=== PATIENT | female | born 1970 | race Caucasian/White ===

== ENCOUNTER 2017-12-24 13:00 | Outpatient (RCR) | payer BC, SELFPAY ==
--- NOTE | 2017-11-12 13:54 | HP.PTEVAL_ITS ---
Patient's Visit Information JARET HARVEY is a 47 year old F referred to Physical Therapy by STACY Luong with a diagnosis of L healing 2 MT fx, Stress 3//5 MT and talus. Date of Evaluation: 11/12/17 Physical Therapist: Juan Galeas DPT, OC - Visit Plan Frequency: 2x /Week Duration: 2 Months Plan: 2x/week for 4-8 for. 1. STM to L foot and lower leg. 2. L ankle stretch and strength.proprioception. 3. ice adn ES as necessary. Most importantly, wean out of boot starting 1 hour per day for 3 days then add an hour every three days as tolerated. - Subjective Subjective: Stress fx left foot 2nd metatarsal stress fracture. Fell a year ago but did not get it taken care of until boot in April. Healed OK back to shoe over the fall. Back to work in September adn got worse again. She works at [employer] and walks on concrete all day. MRI was done and bone next to fractrure is swollen. Back in boot since October 23. It helps. Not painful in boot. If walks around at night wihtout boot it can hurt. Sometimes hurts more at night. Off work again since Oct 23 and will be off until january. Sleep is normal. Does all aDLs with boot on and is OK. - Pain L foot metatarsals Pain Intensity (Out of 10): 0 Pain Intensity Range: 0, 10 Comment: If on it alot. - Objective L Walks with L foot in boot without antalgia. Pt states she walked on side of foot when went back to work in September, no sign of that today. Transfers I and I bed mobility. 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 Movement is decent compared to R at met heads but painful mostly with compression of met heads'. Gastroc and soleus mod tight B at 3 degrees DF. Pt has pes planus B and has OTC orthotics given to her by Dr. Recinos at home. Toe and ankle strength on L 4/5 adn R 4+, slight pain with great toe extension. ankle strength is 4/5 L adn 4+ R without pain. knee strength is 4+/5 B knee flex adn ext...no pain. heel walk and toe raises are painfree today. - Goals Goal 1:: Full ROM B ankles and Metatarsals without pain Goal Time Frame: 4-6 Weeks Goal 2:: Patient wean out of boot without increased pain for 8-10 hours. Goal Time Frame: 4-6 Weeks Goal 3:: Patient feel ready to return to work without increased pain Goal Time Frame: 6-8 Weeks Goal 4:: I approp HEP to minimize future problems. Goal Time Frame: 4-6 Weeks - Rehabilitation Potential Physical Therapy Diagnosis: Inflammation in MT L foot Rehabilitation Potential: Fair - Anticipated Interventions Patient/Client Instruction: Educate patient on: Condition, Plan of Care For the Purpose of:: To decrease pain, To increase ROM, To decrease level of supervision to perform tasks, To improve ability of physical actions for home/ community/work/leisure Therapeutic Exercise to Include: Strength training, Flexibilty training, Gait and locomotor training, Passive ROM, Active ROM For the Purpose of:: To decrease pain, To increase ROM, To improve muscle performance and motor function, To improve ability of physical actions for home/ community/work/leisure, To improve gait and locomotor functions Manual Therapy Techniques to Include: Soft tissue mobilization For the Purpose of:: To decrease pain, To improve nutrient delivery to tissue, To improve ability of physical actions for home/community/work/leisure, To improve gait and locomotor functions TENS: Yes - as needed. Cryotherapy (ice pack, ice massage): Yes For the Purpose of:: To decrease pain, To decrease swelling/inflammation Thank you for the opportunity to evaluate your patient. For Medicare and Medicare HMO plans, please review the plan of care and approve it. It will need to be FAXED BACK to us at [phone] for Medicare purposes. Please let me know if there are questions or concerns regarding this plan of care. Physician Signature: Date:
--- NOTE | 2017-12-08 14:04 | HP.PTREVAL_ITS ---
Jennifer Workman, STACY, It has been my pleasure to treat JARET HARVEY over the last 9 visits for L healing 2 MT fx, Stress 3//5 MT and talus. Please see the progress note below for an update on the physical therapy plan of care! Subjective: Feels medium better. Soreness comes and goes to 8/10 adn sometimes not at all. Good days and bad days without pattern. Pain is L lateral MT. Saw doctor today and is doing OK and will go back 01.05.18. HEP daily band and toe curls and stretches. Sleep is OK. Activities are close to normal, does steps and walks alot. Was in [employer] for an hour in egualr shoe last and that was the last time it really hurt. Has weaned out of boot for the most part. Wants to continue therapy. Goes back to work in a month. Objective/Function: Full aROM L foot without pain, 4+/5 stretngth all ankle motions on L without pain. Tender mildly top of 4th MT to pressure but not squeezing. walks and steps without deficits. OVERALL MUCH IMPROVEMENT AND DOING WELL. RECOMMEND CONTINUING VIA HEP AND F/U FOR PROGRESSION. Plan Plan: F/U TWO WEEKS TO ENSURE PROGRESS WITH ACTIVITY TOLERANCE AND STRENGTH. PROGRESS TO SLS, SLS HEEL RAISE, LUNGES. Goals Goal 1:: Full ROM B ankles and Metatarsals without pain Goal Time Frame: 4-6 Weeks Goal Progress: Goal Met Goal 2:: Patient wean out of boot without increased pain for 8-10 hours. Goal Time Frame: 4-6 Weeks Goal Progress: Goal Met Goal 3:: Patient feel ready to return to work without increased pain Goal Time Frame: 6-8 Weeks Goal Progress: Not yet. Goal 4:: I approp HEP to minimize future problems. Goal Time Frame: 4-6 Weeks Goal Progress: Progressing Goal 5:: Tolerating 3-4 hours on feet without increased pain. Goal Time Frame: 2 Weeks Goal Progress: NEW GOAL Anticipated Interventions Patient/Client Instruction: Educate patient on: Condition, Plan of Care For the Purpose of:: To decrease pain, To increase ROM, To decrease level of supervision to perform tasks, To improve ability of physical actions for home/ community/work/leisure Therapeutic Exercise to Include: Strength training, Flexibilty training, Gait and locomotor training, Passive ROM, Active ROM For the Purpose of:: To decrease pain, To increase ROM, To improve muscle performance and motor function, To improve ability of physical actions for home/ community/work/leisure, To improve gait and locomotor functions Manual Therapy Techniques to Include: Soft tissue mobilization For the Purpose of:: To decrease pain, To improve nutrient delivery to tissue, To improve ability of physical actions for home/community/work/leisure, To improve gait and locomotor functions TENS: Yes - as needed. Cryotherapy (ice pack, ice massage): Yes For the Purpose of:: To decrease pain, To decrease swelling/inflammation Please do not hesitate to contact me at [phone] by phone or Fax: if you have questions or concerns regarding this new plan of care! Sincerely, Juan Galeas, DPT, OC
--- NOTE | 2018-02-25 18:33 | HP.PTDCSUM ---
HP - PT D/C Summary It has been my pleasure to treat JARET HARVEY under orders from Jennifer Workman DPM, for the diagnosis of L healing 2 MT fx, Stress 3//5 MT and talus for a total of 10 visit(s). Discharge Date: 12/24/17 Please see the following information for a summary of their discharge status. - Subjective Subjective: Sleep is OK. Up and down pain, more described as stiffness, not relating to any activity in particular. To doctor in two weeks. HEP : going well and still challenging but improving. All activities normal. - Pain L foot metatarsals Pain Intensity (Out of 10): 0 - Overall Improvement % Improvement: 40 - Objective Objective/Function: Walks without deviations and normal steps. AROM L ankle and MT full and strength in ankle 5/5. Nild discomfort with pressure to top of metatarsal 123 and with squeeze of Metatarsal but it is transient. Toe aROM full. Gait pattern is normal. OVERALL, DOING VERY WELL AND WILL COTNINUE EX VIA HEP, LIKELY READY TO RETURN TO WORK AFTER NEXT DOC APPT AT END OF MONTH. - Goals Goal 1:: Full ROM B ankles and Metatarsals without pain Goal Progress: Goal Met Goal 2:: Patient wean out of boot without increased pain for 8-10 hours. Goal Progress: Goal Met Goal 3:: Patient feel ready to return to work without increased pain Goal Progress: met aftr 27th doc visit. Goal 4:: I approp HEP to minimize future problems. Goal Progress: Goal Met Goal 5:: Tolerating 3-4 hours on feet without increased pain. Goal Progress: Goal Met - Plan Plan: D/C PT. - D/C Information Discharge Comments: Pt to doctor in two weeks and will likely be ready to return to work. If there are questions or concerns regarding this patient's physical therapy, please feel free to call me at [phone]. Thank you for the referral of this patient. Sincerely, Juan Galeas, DPT, OC
== END 2017-12-24 19:00 | disposition home or self-care (01) ==
LOC: PT 13:00
PROVIDERS: Family Provider Family Medicine; PCP Family Medicine; Visit Provider Podiatrist
DX: S92.322D Displaced fracture of second metatarsal bone, left foot, subsequent encounter for fracture with routine healing (principal)
CPT/HCPCS: 97110; 97140; 97162; 97530

== ENCOUNTER → 2018-02-04 16:55 | Outpatient (CLI) | payer BC, SELFPAY ==
[2018-02-04 17:51] LABS: T4 Free Direct 1.08 ng/dL (0.76-1.46); Thyroid Stim Hormone (TSH) 2.14 uIU/mL (0.358-3.74)
== END ==
PROVIDERS: Family Provider Family Medicine; PCP Family Medicine; Visit Provider Family Medicine
DX: E03.9 Hypothyroidism, unspecified (principal)
CPT/HCPCS: 36415; 84439; 84443

== ENCOUNTER → 2018-04-04 07:55 | Outpatient (CLI) | payer BC, SELFPAY ==
[2018-04-04 09:54] LABS: ALB/GLOB Ratio 1.1 RATIO (0.9-2.4); AST(SGOT) 10 U/L (15-37); Alanine Aminotransfer ALT/SGPT 16 U/L (13-56); Albumin, Serum 3.9 g/dL (3.2-5.0); Alkaline Phosphatase 79 U/L (45-117); Anion Gap 3 (5-15); BUN 12 mg/dL (7-18); Calcium,Total 8.8 mg/dL (8.5-10.1); Chloride 108 mmol/L (98-107); Cholesterol 233 mg/dL (200); Creatinine, Serum 0.63 mg/dL (0.55-1.02); EST Glomerular Filtration Rate 106 mL/min (>60); Est Glom Filt Rate - Afr Amer 128 mL/min (>60); Globulin 3.5 g/dL (2.2-4.2); Glucose 92 mg/dL (74-106); High Density Lipoprotein 53 mg/dL; Potassium 4.1 mmol/L (3.5-5.1); Protein, Total 7.4 g/dL (6.4-8.2); Sodium Level 139 mmol/L (136-145); Triglycerides 59 mg/dL; Very Low Density Lipoprotein 12 mg/dL (5-40)
[2018-04-06 09:49] LABS: Vitamin D,25 Hydroxy 22.9 ng/mL (29.95-100.01)
== END ==
PROVIDERS: Family Provider Family Medicine; PCP Family Medicine
DX: E03.9 Hypothyroidism, unspecified (principal); E55.9 Vitamin D deficiency, unspecified; Z13.1 Encounter for screening for diabetes mellitus; Z13.6 Encounter for screening for cardiovascular disorders
CPT/HCPCS: 36415; 80053; 80061; 82306

== ENCOUNTER 2018-09-28 16:02 | Emergency (ER) | payer BC, SELFPAY ==
[2018-09-28 16:04] VITALS: BP 148/91; PULSE 79; RESP 16; TEMP 36.7; O2SAT 100; BMI 23.6
--- NOTE | 2018-09-28 16:16 | EKG12_ITS ---
Test Reason : SOB Blood Pressure : / mmHG Vent. Rate : 069 BPM Atrial Rate : 069 BPM P-R Int : 170 ms QRS Dur : 108 ms QT Int : 410 ms P-R-T Axes : 059 032 046 degrees QTc Int : 439 ms Normal sinus rhythm Normal ECG Confirmed by MARIA ELENA CORDERO MD ([id number]), editorial manager RENETTA RIVERA ([id number]) on 10/02/2018 1:26:52 PM Referred By: TRUDY Confirmed By:MARIA ELENA CORDERO MD
--- NOTE | 2018-09-28 16:21 | ED.DCSUM_ITS ---
- ER Visit Summary Date of Service: 09/28/18 Chief Complaint: Shortness of breath History of Present Illness: The patient is a 48 F patient with shortness of breath, chest tightness for the past 2 weeks after using estradiol vaginal inserts. She has been using albuterol nebulizer at night and Mucinex throughout the day with minimal improvement. She reports mild, nonproductive cough. She states symptoms were similar to her prior COPD exacerbations, but do not seem to be improving. Physical Examination: Vital signs are unremarkable. Pulse ox is 100% on room air. Patient is standing at bedside no acute distress. She is speaking full sentences. Head neck examination is unremarkable. TMs are clear bilaterally. Heart is regular rate and rhythm. Lung sounds are clear, but slightly diminished throughout. Abdomen is soft nontender. Test Results: EKG is sinus at 69 with no sign of acute ischemia. Two-view chest x-ray is unremarkable. CBC was normal white count with hemoglobin 11.9. Chemistry studies are normal. Troponin is negative. D-dimer returns elevated just over 2. CTA reveals no evidence of PE or dissection. There are emphysematous changes noted in the lungs. Emergency Department Course and Treatment: Patient is given a cycle of aerosols and does have some improvement in her symptoms. Patient does have an allergy listed to Medrol, but is able to take prednisone. She be given prednisone and doxycycline for her COPD exacerbation. Treatment Plan: [] Disposition: Discharge Impression: COPD exacerbation This note was generated with [employer] dictation software. It may contain incorrect words, spelling, and punctuation that were not noted in review of the chart prior to signing ED Disposition - Plan for ED Patient: Chief Complaint: Shortness of Breath Referrals: Fortino Srivastava MD [Primary Care Provider] -
[2018-09-28 16:42] VITALS: PULSE 67; RESP 20
[2018-09-28] MEDS: Ipratropium/Albuterol Sulfate 3 ML AMPUL.NEB INHALATION (16:42)
[2018-09-28 16:52] VITALS: PULSE 86; RESP 18
[2018-09-28] MEDS: Albuterol 2.5 MG/3 ML VIAL.NEB. INHALATION ×2 (16:52→17:01)
[2018-09-28 17:16] LABS: Absolute Lymphocyte Count 2.97 X10^3/ul (0.83-4.51); Absolute Neutrophil Count 3.6 X10^3/uL (2.0-7.7); Basophil# 0.05 X10^3/uL; Basophil% 0.7 % (0-1); Eosinophil# 0.26 X10^3/uL; Eosinophils% 3.4 % (0-5); Hematocrit 34.5 % (37-47); Hemoglobin 11.9 g/dl (12.0-15.0); Lymphocyte # 2.97 X10^3/ul (4.0); Lymphocyte % 38.9 % (19-41); Mean Corp Hgb Conc 34.5 g/gl (32-36); Mean Corpuscular Hgb 30.2 pg (27.0-32.0); Mean Corpuscular Volume 87.6 fL (81-99); Mean Platelet Vol. 9.2 fl (6.2-12.0); Monocyte# 0.73 X10^3/uL; Monocyte% 9.6 % (0-10); Platelet Count 370 K/mm3 (150-450); RBC Distribution Width CV 12.5 % (11.6-14.6); RBC Distribution Width SD 39.2 fl (35.1-43.9); Red Blood Count 3.94 M/mm3 (4.2-5.4); White Blood Count 7.6 K/mm3 (4.4-11.0)
--- NOTE | 2018-09-28 17:16 | RAD_ITS ---
STUDY: X-RAY CHEST REASON FOR EXAM: Female, 48 years old. Chest pain TECHNIQUE: PA and lateral views of the chest. COMPARISON: Prior study of 03/27/2015 FINDINGS: The lungs are clear and expanded. There is no demonstrated pleural abnormality. Normal size heart. Normal mediastinum and charles. Normal visualized pulmonary arteries. Normal visualized aortic arch and descending thoracic aorta. Normal visualized thoracic spine. Normal visualized ribs, clavicles, and shoulders. There is no demonstrated abnormality of the visualized soft tissue structures of the upper abdomen. RAD/Chest PA and Lateral IMPRESSION: Normal x-ray examination of the chest. Electronically Signed: Wyatt Dickens MD at 17:55 EST , Service support ,
[2018-09-28 17:17] LABS: POSITIVE COUNT NO; POSITIVE DIFFERENTIAL NO; POSITIVE MORPHOLOGY NO
[2018-09-28 17:20] LABS: Anion Gap 9 (5-15); BUN 6 mg/dL (7-18); BUN/Creat Ratio 8.4 RATIO (10-20); Calcium,Total 8.9 mg/dL (8.5-10.1); Chloride 103 mmol/L (98-107); Creatinine, Serum 0.71 mg/dL (0.55-1.02); EST Glomerular Filtration Rate 92 mL/min (>60); Est Glom Filt Rate - Afr Amer 111 mL/min (>60); Estimated Creatinine Clearance 74.97 ml/min; Glucose 78 mg/dL (74-106); Potassium 3.5 mmol/L (3.5-5.1); Sodium Level 140 mmol/L (136-145)
[2018-09-28 17:34] VITALS: O2SAT 100
[2018-09-28 17:55] LABS: D-Dimer Quantitative (DVT/PE) 2.28 FEU/ug/m (0.27-0.49)
--- NOTE | 2018-09-28 17:56 | CT_ITS ---
STUDY: CTA CHEST REASON FOR EXAM: Female, 48 years old. Shortness of breath and chest tightness x2 weeks, elevated d-dimer RADIATION DOSAGE (If Supplied By Facility): CTDIvol = ( 4.57 ) mGy, DLP = ( 180.83 ) mGycm TECHNIQUE: The examination was performed with the intravenous administration of 75ML ml of Isovue 370 contrast material. Post-processing of the angiographic images was performed, with multiplanar reformation and 3D reconstruction. Individualized dose optimization techniques were used for this CT. COMPARISON: None. FINDINGS: Normal enhancement of the main pulmonary artery and right and left pulmonary arteries. Normal enhancement of the bilateral peripheral pulmonary arteries. There is no demonstrated pulmonary embolism. Normal thoracic aorta and visualized great vessels. There is no demonstrated aortic dissection. Normal heart and pericardium. Normal mediastinum. Normal hilar regions. There are emphysematous changes of the lungs predominantly involving the upper lobes. There is bilateral apical pulmonary scarring/pleural thickening. The lungs are well expanded. Normal chest wall structures. There is mild diffuse endplate spondylosis of the thoracic spine. Normal visualized upper abdomen. CT/CTA Chest W/WO Contrast IMPRESSION: Normal CTA chest examination, without a demonstrated pulmonary embolism or arterial dissection. There are emphysematous changes of the lungs predominantly involving the upper lobes. There is bilateral apical pleural thickening/pulmonary scarring. Electronically Signed: Wyatt Dickens MD at 18:50 EST , Service support ,
--- NOTE | 2018-09-28 17:56 | ED.RN ---
ddimer 2.[address] called [address] lab. dr anna falcon
[2018-09-28 18:23] VITALS: BP 106/70; PULSE 93; RESP 12; O2SAT 98
[2018-09-28 19:10] VITALS: BP 112/77; PULSE 93; RESP 18; O2SAT 98
--- NOTE | 2018-09-28 19:23 | ED.DEP ---
ED Disposition - Plan for ED Patient: Disposition: Home or Assisted Living Chief Complaint: Shortness of Breath Instructions: ED COPD Flare Prescriptions: Prednisone 10 mg PO UD #33 tablet Doxycycline 100 mg PO BID #20 capsule Referrals: Fortino Srivastava MD [Primary Care Provider] - 1 Week if not improving
--- OUTSIDE RECORDS SUMMARY | 2018-12-31 09:11 | XMS RPT_ITS ---
:1970 Author Organization OH[facility] Care Team Providers Name Role Phone SHERLYN HENDERSON) Attending Unavailable MIAN REYES (KRISHNA) Attending Unavailable SHERLYN HENDERSON (LUKASZ) Referring Unavailable FORTINO LOGAN Attending Unavailable FORTINO LOGAN Referring Unavailable FORTINO LOGAN Referring Unavailable PAIGE LYNN Attending Unavailable MIAN REYES (KRISHNA) Referring Unavailable PAIGE LYNN Attending Unavailable MIAN REYES (KRISHNA) Referring Unavailable FORTINO LOGAN Attending Unavailable FORTINO LOGAN Referring Unavailable Fortino Logan Primary Care Unavailable Pallavi Ventura Attending Unavailable Fortino Logan Attending Unavailable Fortino Logan Primary Care Unavailable Fortino Logan Referring Unavailable Jennifer Workman Attending Unavailable Jennifer Workman Referring Unavailable Fortino Logan Primary Care Unavailable Fortino Logan Attending Unavailable Fortino Logan Primary Care Unavailable PUNEET ORTEZ Attending Unavailable Fortino Logan Primary Care Unavailable PUNEET ORTEZ Referring Unavailable PROBLEMS PROBLEMS DATE TYPE CONDITION / CODE ATTENDING STATUS SOURCE 10/20/2018 Unknown E03.9 - Fortino Logan Active [place] Hypothyroidism, Community unspecified / Hospital E03.9(ICD-10) Repository 04/22/2018 Active Unknown / FORTINO LOGAN Active [facility] UNK(Unknown) A Main [place] Repository 02/27/2018 Unknown S92.322D - Fascione, Active [place] Displaced Jennifer Community fracture of Hospital second metatarsal Repository bone, left foot, subsequent encounter for fracture with routine healing / S92.322D(ICD-10) PROCEDURES PROCEDURES No Procedure Records FoundRESULTS RESULTS PROGRESS Observed: 10/23/2018 Status: COMPLETED Source: [place] 3:16 PM [facility] REPOSITORY HNO ID: [id number] Author: Fortino Logan Service: (none) Author Type: Physician Type: Progress Notes Filed: 10/23/2018 8:55 PM Note Text: Chief Complaint Patient presents with: Breathing Problem: x 1 month HPI Brenda Villalobos is a 48 year old female who presents here today for Chronic Medical Conditions.. Patient with COPD, dyslipidemia, hypothyroidism, insomnia, elevated fasting blood sugar as well as those reviewed and addressed below. Was not able to refill her advair and spiriva over a month ago due to 90 supply of each being over $1000. Ended up in the ER in Mid Dec for chest pain that was determined to be her underlying lung disease. The senna has helped her constipation. Wants to try to quit smoking but feels she needs help with this. Would like to try Wellbutrin. The detrol has helped with the bladder. Past medical history, appointments, medications, allergies reviewed. Previous Medical History PAST MEDICAL HISTORY Diagnosis Date - Acquired hypothyroidism 04/25/2015 US 10/2017 showed enlarged right lobe but no nodules - Allergic rhinitis 09/03/2013 - ALEXYS III (cervical intraepithelial neoplasia grade III) with severe dysplasia - Constipation 08/23/2015 - COPD with asthma (HCC) - Dyslipidemia 04/22/2018 - Elevated fasting blood sugar 04/18/2017 - Endometriosis, site unspecified Endometriosis - Gastric hyperplasia 10/18/2016 - Gastro-esophageal reflux disease with esophagitis 10/18/2016 Patient with EGD proven esophagitis and gastric hyperplasia. Has been on omeprazole, pantoprazole and prevacid with no relief of symptoms. Nexium has been helpful and dexalant - GERD (gastroesophageal reflux disease) - Hypothyroidism - Insomnia 04/12/2014 - Post-menopausal - Routine gynecological examination Dr. Chow - Smoker 08/12/2013 - Vitamin D deficiency Previous Surgical History PAST SURGICAL HISTORY Procedure Laterality Date - EGD W/O BRSH SPECIMEN W/BX 05/27/2016 - OFFICE LEEP 2001 - TOTAL ABDOM HYSTERECTOMY 2002 vivian bso Family History FAMILY HISTORY Problem Relation Age of Onset - COPD Mother - Heart Mother - Thyroid Mother - Hypertension Mother - Kidney Disease Mother Kidney failure - Asthma Mother - Breast Cancer Mother - Diabetes Son Type 1 - Asthma Son Patient Allergies ALLERGIES Allergen Reactions - Medrol Dose Pack [M* Swelling Swelling of throat - Bactrim [Sulfametho* Itching - Morphine Itching Current Medications Current Outpatient Prescriptions on File Prior to Visit: tolterodine ER (DETROL LA) 2 mg 24 hr capsule TAKE 1 CAPSULE ONCE DAILY WITH A 4 MG TABLET FOR A TOTAL OF 6 MG A DAY tolterodine ER (DETROL LA) 4 mg 24 hr capsule TAKE 1 CAPSULE ONCE DAILY. 6 MG TOTAL DAILY ergocalciferol, vitamin D2, (VITAMIN D2 ORAL) Take by mouth. hydrOXYzine HCl (ATARAX) 25 mg tablet Take 1-2 tabs by mouth prior to bed as needed for sleep. levothyroxine (SYNTHROID) 88 mcg tablet Take one tab by mouth daily Fri-Friday. None on Friday albuterol (PROVENTIL) 2.5 mg /3 mL (0.083 %) nebulizer solution Use 3 mL via nebulizer every 6 hours as needed for Wheezing/Shortness of Breath. Use over 5-15minutes. esomeprazole (NEXIUM) 40 mg capsule Take 1 capsule by mouth daily before breakfast. senna (SENOKOT) 8.6 mg tab Take 1 tablet by mouth twice daily. Estradiol (YUVAFEM) 10 mcg tab vaginal tablet Use 1 tablet vaginally twice a week. tiotropium (SPIRIVA WITH HANDIHALER) 18 mcg inhalation capsule INHALE THE CONTENTS OF 1 CAPSULE DAILY INSTRUCTED. USE WITH HANDIHALER fluticasone-salmeterol HFA (ADVAIR HFA) 230-21 mcg/actuation inhaler Inhale 2 Puffs as instructed twice daily. polyethylene glycol 3350 (MIRALAX, GLYCOLAX) 17 gram/dose powder Take 17 g by mouth once daily. Take one (1) capful in 8oz of liquid each day. albuterol HFA (PROAIR HFA) 90 mcg/actuation inhaler USE 2 INHALATIONS EVERY 6 HOURS INSTRUCTED NEEDED No current facility-administered medications on file prior to visit. 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 1st AM cigarette within 5 minutes of waking up. 01/30/16. TO Alcohol use: No Drug use: No Sexual activity: Yes Partners with: Male control/protection: Surgical Comment: Pt has had a Hysterectomy Review of Symptoms REVIEW OF SYSTEMS GENERAL: No weight loss, malaise or fevers NECK: Negative for lumps, goiter, pain and significant neck swelling RESPIRATORY: Negative for change in typical cough, hemoptysis. Breathing control poor due to being off routine meds. CARDIOVASCULAR: Negative for chest pain, leg swelling, hypertension, CHF or palpitations GI: No nausea, vomiting, or diarrhea. Still getting HB. : No history of dysuria or blood PSYCH: Negative for sleep disturbance, mood disorder and recent psychosocial stressors NEURO: No history of headaches, syncope, paralysis, seizures or tremors EXAM: BP 112/70 Pulse 72 Resp 14 Wt 61.2 kg (135 lb) SpO2 98% BMI 24.30 kg/m? General Appearance: Well appearing, alert, in no acute distress, well-hydrated, well nourished.. Eyes: Anicteric sclera. Pupils are equally round. Extraocular movements are intact. . Neck: Supple, no adenopathy; thyroid symmetric, normal size, no bruits. Lungs: lungs clear to auscultation. No wheezing, rhonchi, rales. Heart: RRR without murmur, gallop, or rubs. No ectopy. Abdomen: Normal abdominal exam, Abdomen soft, non-tender. Bowel sounds normal. No masses, organomegaly. Extremities: No deformities, edema. Peripheral Pulses: Normal. Neurologic: Gait normal. Reflexes normal and symmetric. Sensation to light touch and strength intact. Psych: mood and affect normal.. Health Maintenance List COLORECTAL CANCER SCREENING,SEE MODIFIER due on 2018 STEROID INHALER ADHERENCE due on 11/13/2018 ANNUAL PCP TEAM CHRONIC DISEASE VISIT due on 04/22/2019 MAMMOGRAM due on 04/29/2019 PAP EVERY 5 YEARS due on 12/09/2019 HPV EVERY 5 YEARS due on 12/09/2019 DIABETES SCREEN due on 04/04/2021 LIPID SCREEN due on 04/04/2023 DTAP,TDAP,TD(2 - Td) due on 04/22/2028 ONE PNEUMOVAX PRIOR TO AGE 65 Completed Data reviewed Component Latest Ref Rng AND Units 10/17/2018 NA 136 - 145 mmol/L 141 K 3.5 - 5.1 mmol/L 3.8 Chloride 98 - 107 MEQ/L 107 CO2 21 - 32 MEQ/L 26 Glucose 74 - 106 MG/DL 91 BUN 7 - 18 MG/DL 13 Creatinine 0.6 - 1.3 MG/DL 0.75 GFR mL/MIN 87 GFR AFR AMER mL/MIN 105 Total Protein 6.4 - 8.2 gm/dL 7.1 Albumin 3.2 - 4.6 gm/dL 3.7 Calcium 8.5 - 10.1 mg/dL 8.5 Bili Total 0.2 - 1 mg/dL 0.9 AST 8 - 37 U/L 8 ALT (SGPT) 12 - 78 U/L 23 Alk Phos Total 45 - 117 U/L 57 Cholesterol, Total 200 208 (A) Triglyceride 150 135 HDL CHOLESTEROL 50 81 LDL Cholesterol 130 100 Hemoglobin A1C 4.3 - 5.6 5.4 TSH 0.358 - 3.74 IU/ml 5.51 (A) A/P ASSESSMENT/PLAN: 1. Dyslipidemia - ICD9: 272.4, ICD10: E78.5 (primary diagnosis) - good control - Encouraged following a low fat, low cholesterol diet. - Discussed the benefits of regular aerobic exercise and weight loss. - Encouraged following a low carbohydrate, healthy oil intake diet. - Continue current therapy. 2. Acquired hypothyroidism - ICD9: 244.9, ICD10: E03.9 - Instructed patient on importance of taking on an empty stomach either first thing in the morning or at bedtime. - Increase Synthroid dose to 0.088 mg daily, Recheck TSH in 2 months - LEVOTHYROXINE 88 MCG TABLET 3. Elevated fasting blood sugar - ICD9: 790.21, ICD10: R73.01 - Better A1c, cont life style changes 4. COPD with chronic bronchitis (HCC) - ICD9: 491.20, ICD10: J44.9 cont - FLUTICASONE-SALMETEROL 230 MCG-21 MCG/ACTUATION HFA AEROSOL INHALER and spiriva. Patient to let me know if 30 day dosing too expensive and if so will proceed with medication assistance. 5. COPD with asthma (HCC) - ICD9: 493.20, ICD10: J44.9 See #4 6. Gastro-esophageal reflux disease with esophagitis - ICD9: 530.11, ICD10: K21.0 - Continue treatment with Nexium 40 mg QD 7. Insomnia, unspecified type - ICD9: 780.52, ICD10: G47.00 Cont - HYDROXYZINE HCL 25 MG TABLET -will see if increasing the synthroid also helps 8. Spastic bladder - ICD9: 596.89, ICD10: N32.89 - Cont detrol 9. Other constipation - ICD9: 564.09, ICD10: K59.09 Cont - SENNOSIDES 8.6 MG TABLET 10. Smoker - ICD9: 305.1, ICD10: F17.200 - Cessation encouraged. - Counseling was given focusing on the harmful effects of this addiction especially given the patient's medical condition(s) which will be worsened because of the chemicals in tobacco. - Prescription for bupropion (Wellbutrin) given Signed Prescriptions Disp Refills tiotropium (SPIRIVA WITH HANDIHALER) 18 mcg inhalation capsule 30 capsule 0 Sig: INHALE THE CONTENTS OF 1 CAPSULE DAILY INSTRUCTED. USE WITH HANDIHALER VANESSA: No fluticasone-salmeterol HFA (ADVAIR HFA) 230-21 mcg/actuation inhaler 1 Inhaler 0 Sig: Inhale 2 Puffs as instructed twice daily. VANESSA: No hydrOXYzine HCl (ATARAX) 25 mg tablet 180 tablet 1 Sig: Take 1-2 tabs by mouth prior to bed as needed for sleep. VANESSA: No levothyroxine (SYNTHROID) 88 mcg tablet 90 tablet 1 Sig: Take one tab by mouth daily. VANESSA: No senna (SENOKOT) 8.6 mg tab 180 tablet 3 Sig: Take 1 tablet by mouth twice daily. VANESSA: No buPROPion SR (ZYBAN SR; WELLBUTRIN SR) 150 mg 12 hr tablet 60 tablet 5 Sig: Take one tab a day for 10-14 days then go to taking one twice a day. F/u 6 months WAE Check TSH in 2 months order given to patient. Fortino Logan MD CNOV Observed: 10/23/2018 Status: COMPLETED Source: [place] 2:40 PM [facility] REPOSITORY [facility] BRENDA VILLALOBOS Dianna ([id number]) 1970 F Date Time Provider Department 10/23/18 2:40 PM FORTINO LOGAN [facility] During your visit today, we recorded the following information about you: Pulse Respiration Blood pressure Weight 72/minute 14/minute 112/70 61.2 kg Fortino Logan MD 10/23/2018 8:55 PM Signed Chief Complaint Patient presents with: Breathing Problem: x 1 month HPI Brenda Bustamante Griselda is a 48 year old female who presents here today for Chronic Medical Conditions.. Patient with COPD, dyslipidemia, hypothyroidism, insomnia, elevated fasting blood sugar as well as those reviewed and addressed below. Was not able to refill her advair and spiriva over a month ago due to 90 supply of each being over $1000. Ended up in the ER in Mid Dec for chest pain that was determined to be her underlying lung disease. The senna has helped her constipation. Wants to try to quit smoking but feels she needs help with this. Would like to try Wellbutrin. The detrol has helped with the bladder. Past medical history, appointments, medications, allergies reviewed. Previous Medical History PAST MEDICAL HISTORY Diagnosis Date - Acquired hypothyroidism 04/25/2015 US 10/2017 showed enlarged right lobe but no nodules - Allergic rhinitis 09/03/2013 - ALEXYS III (cervical intraepithelial neoplasia grade III) with severe dysplasia - Constipation 08/23/2015 - COPD with asthma (HCC) - Dyslipidemia 04/22/2018 - Elevated fasting blood sugar 04/18/2017 - Endometriosis, site unspecified Endometriosis - Gastric hyperplasia 10/18/2016 - Gastro-esophageal reflux disease with esophagitis 10/18/2016 Patient with EGD proven esophagitis and gastric hyperplasia. Has been on omeprazole, pantoprazole and prevacid with no relief of symptoms. Nexium has been helpful and dexalant - GERD (gastroesophageal reflux disease) - Hypothyroidism - Insomnia 04/12/2014 - Post-menopausal - Routine gynecological examination Dr. Chow - Smoker 08/12/2013 - Vitamin D deficiency Previous Surgical History PAST SURGICAL HISTORY Procedure Laterality Date - EGD W/O BRSH SPECIMEN W/BX 05/27/2016 - OFFICE LEEP 2001 - TOTAL ABDOM HYSTERECTOMY 2002 vivian bso Family History FAMILY HISTORY Problem Relation Age of Onset - COPD Mother - Heart Mother - Thyroid Mother - Hypertension Mother - Kidney Disease Mother Kidney failure - Asthma Mother - Breast Cancer Mother - Diabetes Son Type 1 - Asthma Son Patient Allergies ALLERGIES Allergen Reactions - Medrol Dose Pack [M* Swelling Swelling of throat - Bactrim [Sulfametho* Itching - Morphine Itching Current Medications Current Outpatient Prescriptions on File Prior to Visit: tolterodine ER (DETROL LA) 2 mg 24 hr capsule TAKE 1 CAPSULE ONCE DAILY WITH A 4 MG TABLET FOR A TOTAL OF 6 MG A DAY tolterodine ER (DETROL LA) 4 mg 24 hr capsule TAKE 1 CAPSULE ONCE DAILY. 6 MG TOTAL DAILY ergocalciferol, vitamin D2, (VITAMIN D2 ORAL) Take by mouth. hydrOXYzine HCl (ATARAX) 25 mg tablet Take 1-2 tabs by mouth prior to bed as needed for sleep. levothyroxine (SYNTHROID) 88 mcg tablet Take one tab by mouth daily Fri-Friday. None on Friday albuterol (PROVENTIL) 2.5 mg /3 mL (0.083 %) nebulizer solution Use 3 mL via nebulizer every 6 hours as needed for Wheezing/Shortness of Breath. Use over 5-15minutes. esomeprazole (NEXIUM) 40 mg capsule Take 1 capsule by mouth daily before breakfast. senna (SENOKOT) 8.6 mg tab Take 1 tablet by mouth twice daily. Estradiol (YUVAFEM) 10 mcg tab vaginal tablet Use 1 tablet vaginally twice a week. tiotropium (SPIRIVA WITH HANDIHALER) 18 mcg inhalation capsule INHALE THE CONTENTS OF 1 CAPSULE DAILY INSTRUCTED. USE WITH HANDIHALER fluticasone-salmeterol HFA (ADVAIR HFA) 230-21 mcg/actuation inhaler Inhale 2 Puffs as instructed twice daily. polyethylene glycol 3350 (MIRALAX, GLYCOLAX) 17 gram/dose powder Take 17 g by mouth once daily. Take one (1) capful in 8oz of liquid each day. albuterol HFA (PROAIR HFA) 90 mcg/actuation inhaler USE 2 INHALATIONS EVERY 6 HOURS INSTRUCTED NEEDED No current facility-administered medications on file prior to visit. 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 1st AM cigarette within 5 minutes of waking up. 01/30/16. TO Alcohol use: No Drug use: No Sexual activity: Yes Partners with: Male control/protection: Surgical Comment: Pt has had a Hysterectomy Review of Symptoms REVIEW OF SYSTEMS GENERAL: No weight loss, malaise or fevers NECK: Negative for lumps, goiter, pain and significant neck swelling RESPIRATORY: Negative for change in typical cough, hemoptysis. Breathing control poor due to being off routine meds. CARDIOVASCULAR: Negative for chest pain, leg swelling, hypertension, CHF or palpitations GI: No nausea, vomiting, or diarrhea. Still getting HB. : No history of dysuria or blood PSYCH: Negative for sleep disturbance, mood disorder and recent psychosocial stressors NEURO: No history of headaches, syncope, paralysis, seizures or tremors EXAM: BP 112/70 Pulse 72 Resp 14 Wt 61.2 kg (135 lb) SpO2 98% BMI 24.30 kg/m? General Appearance: Well appearing, alert, in no acute distress, well-hydrated, well nourished.. Eyes: Anicteric sclera. Pupils are equally round. Extraocular movements are intact. . Neck: Supple, no adenopathy; thyroid symmetric, normal size, no bruits. Lungs: lungs clear to auscultation. No wheezing, rhonchi, rales. Heart: RRR without murmur, gallop, or rubs. No ectopy. Abdomen: Normal abdominal exam, Abdomen soft, non-tender. Bowel sounds normal. No masses, organomegaly. Extremities: No deformities, edema. Peripheral Pulses: Normal. Neurologic: Gait normal. Reflexes normal and symmetric. Sensation to light touch and strength intact. Psych: mood and affect normal.. Health Maintenance List COLORECTAL CANCER SCREENING,SEE MODIFIER due on 2018 STEROID INHALER ADHERENCE due on 11/13/2018 ANNUAL PCP TEAM CHRONIC DISEASE VISIT due on 04/22/2019 MAMMOGRAM due on 04/29/2019 PAP EVERY 5 YEARS due on 12/09/2019 HPV EVERY 5 YEARS due on 12/09/2019 DIABETES SCREEN due on 04/04/2021 LIPID SCREEN due on 04/04/2023 DTAP,TDAP,TD(2 - Td) due on 04/22/2028 ONE PNEUMOVAX PRIOR TO AGE 63 Completed Data reviewed Component Latest Ref Rng AND Units 10/17/2018 NA 136 - 145 mmol/L 141 K 3.5 - 5.1 mmol/L 3.8 Chloride 98 - 107 MEQ/L 107 CO2 21 - 32 MEQ/L 26 Glucose 74 - 106 MG/DL 91 BUN 7 - 18 MG/DL 13 Creatinine 0.6 - 1.3 MG/DL 0.75 GFR mL/MIN 87 GFR AFR AMER mL/MIN 105 Total Protein 6.4 - 8.2 gm/dL 7.1 Albumin 3.2 - 4.6 gm/dL 3.7 Calcium 8.5 - 10.1 mg/dL 8.5 Bili Total 0.2 - 1 mg/dL 0.9 AST 8 - 37 U/L 8 ALT (SGPT) 12 - 78 U/L 23 Alk Phos Total 45 - 117 U/L 57 Cholesterol, Total 200 208 (A) Triglyceride 150 135 HDL CHOLESTEROL 50 81 LDL Cholesterol 130 100 Hemoglobin A1C 4.3 - 5.6 5.4 TSH 0.358 - 3.74 IU/ml 5.51 (A) A/P ASSESSMENT/PLAN: 1. Dyslipidemia - ICD9: 272.4, ICD10: E78.5 (primary diagnosis) - good control - Encouraged following a low fat, low cholesterol diet. - Discussed the benefits of regular aerobic exercise and weight loss. - Encouraged following a low carbohydrate, healthy oil intake diet. - Continue current therapy. 2. Acquired hypothyroidism - ICD9: 244.9, ICD10: E03.9 - Instructed patient on importance of taking on an empty stomach either first thing in the morning or at bedtime. - Increase Synthroid dose to 0.088 mg daily, Recheck TSH in 2 months - LEVOTHYROXINE 88 MCG TABLET 3. Elevated fasting blood sugar - ICD9: 790.21, ICD10: R73.01 - Better A1c, cont life style changes 4. COPD with chronic bronchitis (HCC) - ICD9: 491.20, ICD10: J44.9 cont - FLUTICASONE-SALMETEROL 230 MCG-21 MCG/ACTUATION HFA AEROSOL INHALER and spiriva. Patient to let me know if 30 day dosing too expensive and if so will proceed with medication assistance. 5. COPD with asthma (HCC) - ICD9: 493.20, ICD10: J44.9 See #4 6. Gastro-esophageal reflux disease with esophagitis - ICD9: 530.11, ICD10: K21.0 - Continue treatment with Nexium 40 mg QD 7. Insomnia, unspecified type - ICD9: 780.52, ICD10: G47.00 Cont - HYDROXYZINE HCL 25 MG TABLET -will see if increasing the synthroid also helps 8. Spastic bladder - ICD9: 596.89, ICD10: N32.89 - Cont detrol 9. Other constipation - ICD9: 564.09, ICD10: K59.09 Cont - SENNOSIDES 8.6 MG TABLET 10. Smoker - ICD9: 305.1, ICD10: F17.200 - Cessation encouraged. - Counseling was given focusing on the harmful effects of this addiction especially given the patient's medical condition(s) which will be worsened because of the chemicals in tobacco. - Prescription for bupropion (Wellbutrin) given Signed Prescriptions Disp Refills tiotropium (SPIRIVA WITH HANDIHALER) 18 mcg inhalation capsule 30 capsule 0 Sig: INHALE THE CONTENTS OF 1 CAPSULE DAILY INSTRUCTED. USE WITH HANDIHALER VANESSA: No fluticasone-salmeterol HFA (ADVAIR HFA) 230-21 mcg/actuation inhaler 1 Inhaler 0 Sig: Inhale 2 Puffs as instructed twice daily. VANESSA: No hydrOXYzine HCl (ATARAX) 25 mg tablet 180 tablet 1 Sig: Take 1-2 tabs by mouth prior to bed as needed for sleep. VANESSA: No levothyroxine (SYNTHROID) 88 mcg tablet 90 tablet 1 Sig: Take one tab by mouth daily. VANESSA: No senna (SENOKOT) 8.6 mg tab 180 tablet 3 Sig: Take 1 tablet by mouth twice daily. VANESSA: No buPROPion SR (ZYBAN SR; WELLBUTRIN SR) 150 mg 12 hr tablet 60 tablet 5 Sig: Take one tab a day for 10-14 days then go to taking one twice a day. F/u 6 months WAE Check TSH in 2 months order given to patient. MD Foritno Fitzpatrick MD 10/23/2018 3:46 PM Signed Let me know about the Spiriva and Advair. Please get none fasting lab work done on or after 12/18/2018 Referring Provider: FORTINO LOGAN [[id number]] Allergies As of Date: 10/23/2018 Noted Allergy Reaction MEDROL DOSE PACK (METHYLPREDNISOL*01/31/2017 7 - Swelling Comments: Swelling of throat BACTRIM (SULFAMETHOXAZOLE) 08/12/2013 9 - Itching MORPHINE 08/12/2013 9 - Itching Date Reviewed: 10/23/2018 Reviewed by: Fortino Logan - Fully Assessed Reason for Visit: Breathing Problem [17] Cmt: x 1 month Primary Visit Diagnosis:Dyslipidemia [E78.5] Other Visit Diagnoses:Acquired hypothyroidism [E03.9] Elevated fasting blood sugar [R73.01] COPD with chronic bronchitis (HCC) [J44.9] COPD with asthma (HCC) [J44.9] Gastro-esophageal reflux disease with esophagitis [K21.0] Insomnia, unspecified type [G47.00] Spastic bladder [N32.89] Other constipation [K59.09] Smoker [F17.200] Vitamin D deficiency [E55.9] Routine gynecological examination [Z01.419] Order(s):tiotropium (SPIRIVA WITH HANDIHALER) 18 mcg inhalation capsuleINHALE THE CONTENTS OF 1 CAPSULE DAILY INSTRUCTED. USE WITH HANDIHALERDisp: 30 capsuleRfl: 0 fluticasone-salmeterol HFA (ADVAIR HFA) 230-21 mcg/actuation inhalerInhale 2 Puffs as instructed twice daily.Disp: 1 InhalerRfl: 0 hydrOXYzine HCl (ATARAX) 25 mg tabletTake 1-2 tabs by mouth prior to bed as needed for sleep.Disp: 180 tabletRfl: 1 levothyroxine (SYNTHROID) 88 mcg tabletTake one tab by mouth daily.Disp: 90 tabletRfl: 1 senna (SENOKOT) 8.6 mg tabTake 1 tablet by mouth twice daily.Disp: 180 tabletRfl: 3 HBA1C (OUTSIDE) [2556551] Order #: [id number] CMP (EXTERNAL) [2202052] Order #: [id number] LIPID PANEL (OUTSIDE) [8444678] Order #: [id number] TSH (EXTERNAL) [[id number]] Order #: [id number] buPROPion SR (ZYBAN SR; WELLBUTRIN SR) 150 mg 12 hr tabletTake one tab a day for 10-14 days then go to taking one twice a day.Disp: 60 tabletRfl: 5 TSH BLD [SQTSH] Order #: [id number] FUTURE VITAMIN D 25 HYDROXY [SQVITD] Order #: [id number] FUTURE Prescriptions as of 10/23/2018 Sig: HYDROXYZINE HCL 25 MG TABLET Take 1-2 tabs by mouth prior * LEVOTHYROXINE 88 MCG TABLET Take one tab by mouth daily. SENNOSIDES 8.6 MG TABLET Take 1 tablet by mouth twice * TOLTERODINE ER 2 MG CAPSULE,E* TAKE 1 CAPSULE ONCE DAILY WIT* TOLTERODINE ER 4 MG CAPSULE,E* TAKE 1 CAPSULE ONCE DAILY. 6 * VITAMIN D2 ORAL Take by mouth. ALBUTEROL SULFATE 2.5 MG/3 ML* Use 3 mL via nebulizer every * ESOMEPRAZOLE MAGNESIUM 40 MG * Take 1 capsule by mouth daily* TIOTROPIUM BROMIDE 18 MCG CAP* INHALE THE CONTENTS OF 1 CAPS* FLUTICASONE-SALMETEROL 230 MC* Inhale 2 Puffs as instructed * BUPROPION HCL SR 150 MG TABLE* Take one tab a day for 10-14 * ESTRADIOL 10 MCG VAGINAL TABL* Use 1 tablet vaginally twice * POLYETHYLENE GLYCOL 3350 17 G* Take 17 g by mouth once daily* ALBUTEROL SULFATE HFA 90 MCG/* USE 2 INHALATIONS EVERY 6 NURA* Problem List As Of Date 10/23/2018 Noted Resolved Post-menopausal [Z78.0] COPD with asthma (HCC) [J44.9] Vitamin D deficiency [E55.9] More... More... Smoker [F17.200] INVALID FOR* Allergic rhinitis [J30.9] INVALID FOR* Insomnia [G47.00] INVALID FOR* Acquired hypothyroidism [E03.9] INVALID FOR* More... More... Constipation [K59.00] INVALID FOR* Encounter for gynecological examination without*INVALID FOR* More... Well adult exam [Z00.00] INVALID FOR* More... Gastro-esophageal reflux disease with esophagit*INVALID FOR* More... 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 Other instructions from your clinician: Let me know about the Spiriva and Advair. Please get none fasting lab work done on or after 12/18/2018 Prescriptions ordered this encounter Disp Refills Start End TIOTROPIUM BROMIDE 18 MCG CAPSULE WI* 30 c* 0 10/23/2018 Sig: INHALE THE CONTENTS OF 1 CAPSULE DAILY INSTRUCTED. USE WITH HANDIHALER FLUTICASONE-SALMETEROL 230 MCG-21 MC* 1 In* 0 10/23/2018 Route: INHALATION Sig: Inhale 2 Puffs as instructed twice daily. HYDROXYZINE HCL 25 MG TABLET 180 * 1 10/23/2018 Class: [facility] Sig: Take 1-2 tabs by mouth prior to bed as needed for sleep. LEVOTHYROXINE 88 MCG TABLET 90 t* 1 10/23/2018 Class: [facility] Sig: Take one tab by mouth daily. SENNOSIDES 8.6 MG TABLET 180 * 3 10/23/2018 Class: [facility] Route: ORAL Sig: Take 1 tablet by mouth twice daily. BUPROPION HCL SR 150 MG TABLET,12 HR* 60 t* 5 10/23/2018 Sig: Take one tab a day for 10-14 days then go to taking one twice a day. Medications Discontinued During This Encounter tiotropium (SPIRIVA WITH HANDIHALER)* 90 c* 1 04/22/2018 10/23/2018 Sig: INHALE THE CONTENTS OF 1 CAPSULE DAILY INSTRUCTED. USE WITH HANDIHALER Disc: Reason for discontinue is not on file. fluticasone-salmeterol HFA (ADVAIR H* 3 In* 1 04/22/2018 10/23/2018 Route: INHALATION Sig: Inhale 2 Puffs as instructed twice daily. Disc: Reason for discontinue is not on file. hydrOXYzine HCl (ATARAX) 25 mg tablet 180 * 1 04/22/2018 10/23/2018 Sig: Take 1-2 tabs by mouth prior to bed as needed for sleep. Disc: Reason for discontinue is not on file. levothyroxine (SYNTHROID) 88 mcg tab* 90 t* 1 04/22/2018 10/23/2018 Sig: Take one tab by mouth daily Fri-Friday. None on Friday Disc: Reason for discontinue is not on file. senna (SENOKOT) 8.6 mg tab 60 t* 5 04/22/2018 10/23/2018 Route: ORAL Sig: Take 1 tablet by mouth twice daily. Disc: Reason for discontinue is not on file. Disposition: Return in about 6 months (around 04/22/2019) for complete PE. Follow-up and Disposition History Recorded Encounter Status:Closed by FORTINO LOGAN on 10/23/18 HEMOGLOBIN A1C Collected: 10/17/2018 Status: F Source: [place] 9:38 AM [facility] REPOSITORY TYPE CODE TESTS RESULT OUT OF RANGE REFERENCE UNITS LAB L501.9985 4.2-6.3 % Normal HGB A1C 5.4 Performed By: #### L501.9985 #### [facility] [address] [place], [address] COMPREHENSIVE METABOLIC Collected: 10/17/2018 Status: F Source: [facility]ON [facility] 9:38 AM [facility] REPOSITORY TYPE CODE TESTS RESULT OUT OF RANGE REFERENCE UNITS LAB L501.0100 74-106 mg/dL Normal GLU 91 Result Comment: Please note revised GLUCOSE reference range effective 2017. LAB L501.1000 7-18 mg/dL Normal BUN 13 LAB L501.1100 0.55-1.02 mg/dL Normal CREAT,SERUM 0.75 Result Comment: The validity of the calculated GFR AND GFRAA in patients over 70 years has not been determined. Clinical correlation is essential. LAB L501.1110 >60 mL/min Normal EST GFR 87 Result Comment: Non- GFR Calc LAB L501.1115 >60 mL/min Normal EST GFR - AA 105 Result Comment: GFR Calc LAB L501.1300 10-20 RATIO Normal BUN/CRE 17.3 LAB L501.1500 6.4-8.2 g/dL T Normal PROT 7.1 LAB L501.1800 3.2-5.0 g/dL Normal ALB 3.7 LAB L501.1950 2.2-4.2 g/dL Normal GLOB 3.4 LAB L501.2000 0.9-2.4 RATIO Normal A/G 1.1 LAB L501.2200 8.5-10.1 mg/dL CA Normal 8.5 LAB L501.4100 15-37 U/L Low AST 8 LAB L501.4305 45-117 U/L Normal ALK P 57 LAB L501.4405 13-56 U/L Normal ALT 23 LAB L501.4600 0.20-1.00 mg/dL T Normal BILI 0.90 LAB L501.5300 136-145 mmol/L NA Normal 141 LAB L501.5600 3.5-5.1 mmol/L K Normal 3.8 LAB L501.5900 98-107 mmol/L CL Normal 107 LAB L501.6100 21.0-32.0 mmol/L Normal CO2 26.0 LAB L501.6200 5-15 Normal GAP 8 Performed By: #### L500.4050, L500.4100, L501.9520 #### [facility] [address] [place], [address] LIPID PROFILE Collected: 10/17/2018 Status: F Source: [place] 9:38 AM [facility] REPOSITORY TYPE CODE TESTS RESULT OUT OF RANGE REFERENCE UNITS LAB L501.4900 200 mg/dL High CHOL 208 Result Comment: <200 mg/dL Desirable 200-240 mg/dL Borderline >240 mg/dL High Risk LAB L501.5000 mg/dL Normal TRIG 135 Result Comment: The drugs N-Acetylcysteine and Metamizole may falsely depress this assay. Serum Triglycerides Reference Interval Normal <150 mg/dL Borderline high 150 - 199 mg/dL High 200 - 499 mg/dL Very High > or = 500 mg/dL LAB L501.6400 mg/dL Normal HDL 81 Result Comment: The drugs N-Acetylcysteine and Metamizole may falsely depress this assay. Reference Range HDL <40 mg/dL Low HDL Cholesterol HDL >or= 60 mg/dL High HDL Cholesterol LAB L501.6500 0-130 mg/dL Normal LDL 100 LAB L501.6600 5-40 mg/dL Normal VLDL 27 Performed By: #### L500.4050, L500.4100, L501.9520 #### [facility] [address] [place], [address] THYROID STIM HORMONE Collected: 10/17/2018 Status: F Source: [place] ([facility]) 9:38 AM [facility] REPOSITORY TYPE CODE TESTS RESULT OUT OF RANGE REFERENCE UNITS LAB L501.9520 0.358-3.74 uIU/mL High TSH 5.51 Performed By: #### L500.4050, L500.4100, L501.9520 #### [facility] [address] [place], [address] 12 LEAD ELECTROCARDIOGRAM Observed: 10/02/2018 Status: F Source: [place] 1:27 PM [facility] REPOSITORY [facility] Cardiovascular Services [address] [place] [address] 12 Lead EKG 09/28/18 1633 MR#: [id number] Acct: [id number] Name: BRENDA VILLALOBOS Rep #: [id number] : 1970 48 From: Wally Storey MD Attending Dr: Status: DEP ER Ordering Dr: Pallavi Ventura MD Date: 09/28/18 Location: ED Sex: F C Admitted: Test Reason : SOB Blood Pressure : / mmHG Vent. Rate : 069 BPM Atrial Rate : 069 BPM P-R Int : 170 ms QRS Dur : 108 ms QT Int : 410 ms P-R-T Axes : 059 032 046 degrees QTc Int : 439 ms Normal sinus rhythm Normal ECG Confirmed by WALLY STOREY MD ([id number]), business editor RENETTA RIVERA ([id number]) on 10/02/2018 1:26:52 PM Referred By: TRUDY Confirmed By:WALLY STOREY MD 10/02/18 1326 Date Wally Storey MD CC: Fortino Logan MD; Pallavi Ventura MD Signed EMERGENCY DEPARTMENT Observed: 09/29/2018 Status: F Source: [place] SUMMARY 12:[address] [facility] Medical Records Department [address] [place] [address] Emergency Department Summary 09/28/18 1620 MR#: [id number] Acct: [id number] Name: BRENDA VILLALOBOS Rep #: [id number] : 1970 48 From: Pallavi Ventura MD PCP: Fortino Logan MD Status: DEP ER - ER Visit Summary Date of Service: 09/28/18 Chief Complaint: Shortness of breath History of Present Illness: The patient is a 48 F patient with shortness of breath, chest tightness for the past 2 weeks after using estradiol vaginal inserts. She has been using albuterol nebulizer at night and Mucinex throughout the day with minimal improvement. She reports mild, nonproductive cough. She states symptoms were similar to her prior COPD exacerbations, but do not seem to be improving. Physical Examination: Vital signs are unremarkable. Pulse ox is 100% on room air. Patient is standing at bedside no acute distress. She is speaking full sentences. Head neck examination is unremarkable. TMs are clear bilaterally. Heart is regular rate and rhythm. Lung sounds are clear, but slightly diminished throughout. Abdomen is soft nontender. Test Results: EKG is sinus at 69 with no sign of acute ischemia. Two-view chest x-ray is unremarkable. CBC was normal white count with hemoglobin 11.9. Chemistry studies are normal. Troponin is negative. D-dimer returns elevated just over 2. CTA reveals no evidence of PE or dissection. There are emphysematous changes noted in the lungs. Emergency Department Course and Treatment: Patient is given a cycle of aerosols and does have some improvement in her symptoms. Patient does have an allergy listed to Medrol, but is able to take prednisone. She be given prednisone and doxycycline for her COPD exacerbation. Treatment Plan: [] Disposition: Discharge Impression: COPD exacerbation This note was generated with [employer]ubble[employer] dictation software. It may contain incorrect words, spelling, and punctuation that were not noted in review of the chart prior to signing ED Disposition - Plan for ED Patient: Chief Complaint: Shortness of Breath Referrals: Fortino Logan MD [Primary Care Provider] - What to do if you have Problems For any increased pain, shortness of breath, bleeding, nausea or vomiting, chest pain, or any unexpected problems, contact your Primary Care Provider. Call [facility] ([phone]) or report to the closest Emergency Room. Call 911 if necessary. 09/29/18 0031 <Electronically signed by Pallavi Ventura MD> Date Pallavi Ventura MD Cosigner Signature (If Indicated): Date CC: Fortino Logan MD DISCHARGE INSTRUCTION Observed: 09/28/2018 Status: F Source: [place] 7:25 PM [facility] REPOSITORY [facility] Medical Records Department [address] [place] [address] Discharge Instruction 09/28/18 192 MR#: [id number] Acct: [id number] Name: BRENDA VILLALOBOS Rep #: [id number] : 1970 48 From: Pallavi Ventura MD PCP: Fortino Logan MD Status: REG ER ED Disposition - Plan for ED Patient: Disposition: Home or Assisted Living Chief Complaint: Shortness of Breath Instructions: ED COPD Flare Prescriptions: Prednisone 10 mg PO UD #33 tablet Doxycycline 100 mg PO BID #20 capsule Referrals: Fortino Logan MD [Primary Care Provider] - 1 Week if not improving What to do if you have Problems For any increased pain, shortness of breath, bleeding, nausea or vomiting, chest pain, or any unexpected problems, contact your Primary Care Provider. Call [facility] ([phone]) or report to the closest Emergency Room. Call 911 if necessary. 09/28/181924 <Electronically signed by Pallavi Ventura MD> Date Pallavi Ventura MD Cosigner Signature (If Indicated): Date CC: Fortino Logan MD CTA CHEST W/WO Observed: 09/28/2018 Status: F Source: [place] CONTRAST 5:56 PM [facility] REPOSITORY [facility] Imaging Services [address] [place] [address] CTA Chest W/WO Contrast MR#: [id number] Acct: [id number] Name: BRENDA VILLALOBOS Rep #: [id number] : 1970 F 48 From: Wyatt Dickens MD PCP: Fortino Logan MD Status: REG ER Study: CTA Chest W/WO Contrast Date of Exam: 09/28/18 Exam# [id number] Ordering Dr: Pallavi Ventura MD STUDY: CTA CHEST REASON FOR EXAM: Female, 48 years old. Shortness of breath and chest tightness x2 weeks, elevated d-dimer RADIATION DOSAGE (If Supplied By Facility): CTDIvol = ( 4.57 ) mGy, DLP = ( 180.83 ) mGycm TECHNIQUE: The examination was performed with the intravenous administration of 75ML ml of Isovue 370 contrast material. Post-processing of the angiographic images was performed, with multiplanar reformation and 3D reconstruction. Individualized dose optimization techniques were used for this CT. COMPARISON: None. FINDINGS: Normal enhancement of the main pulmonary artery and right and left pulmonary arteries. Normal enhancement of the bilateral peripheral pulmonary arteries. There is no demonstrated pulmonary embolism. Normal thoracic aorta and visualized great vessels. There is no demonstrated aortic dissection. Normal heart and pericardium. Normal mediastinum. Normal hilar regions. There are emphysematous changes of the lungs predominantly involving the upper lobes. There is bilateral apical pulmonary scarring/pleural thickening. The lungs are well expanded. Normal chest wall structures. There is mild diffuse endplate spondylosis of the thoracic spine. Normal visualized upper abdomen. CT/CTA Chest W/WO Contrast IMPRESSION: Normal CTA chest examination, without a demonstrated pulmonary embolism or arterial dissection. There are emphysematous changes of the lungs predominantly involving the upper lobes. There is bilateral apical pleural thickening/pulmonary scarring. Electronically Signed: Wyatt Dickens MD at 18:50 EST , Service support , CC: Fortino Logan MD; Pallavi Ventura MD Lawn Mower Operator: Signed CBC W/DIFF, AUTOMATED Collected: 09/28/2018 Status: F Source: [place] 4:36 PM [facility] REPOSITORY TYPE CODE TESTS RESULT OUT OF RANGE REFERENCE UNITS LAB L100.1000 4.4-11.0 K/mm3 Normal WBC 7.6 LAB L100.1200 4.2-5.4 M/mm3 Low RBC 3.94 LAB L100.1300 12.0-15.0 g/dl Low HGB 11.9 LAB L100.1400 37-47 % Low HCT 34.5 LAB L100.1500 81-99 fL Normal MCV 87.6 LAB L100.1600 27.0-32.0 pg Normal MCH 30.2 LAB L100.1700 32-36 g/gl Normal MCHC 34.5 LAB L100.1810 11.6-14.6 % Normal RDW CV 12.5 LAB L100.1820 35.1-43.9 fl Normal RDW SD 39.2 LAB L100.1900 150-450 K/mm3 Normal PLT 370 LAB L100.2000 6.2-12.0 fl Normal MPV 9.2 LAB L100.2100 47-70 % Normal NEUT% 47.0 LAB L100.2200 19-41 % Normal LY% 38.9 LAB L100.2300 0-10 % Normal MONO% 9.6 LAB L100.2400 0-5 % Normal EO% 3.4 LAB L100.2500 0-1 % Normal BASO% 0.7 LAB L100.2550 0.0-0.9 % Normal IM GRAN % 0.400 Result Comment: IG% - Immature Granulocytes (promyelocytes, myelocytes and metamyelocytes) > 1% indicates that a LEFT SHIFT is Present. LAB L100.2620 2.0-7.7 X10 3/uL Normal Absolute Neut 3.6 LAB L100.2720 0.83-4.51 X10 3/ul Normal Absolute Lymph 2.97 Performed By: #### L100.0100 #### [facility] [address] [place], [address] BASIC METABOLIC Collected: 09/28/2018 Status: F Source: [facility] PROFILE ([facility]) 4:36 PM [facility] REPOSITORY TYPE CODE TESTS RESULT OUT OF RANGE REFERENCE UNITS LAB L501.0100 74-106 mg/dL Normal GLU 78 Result Comment: Please note revised GLUCOSE reference range effective 2017. LAB L501.1000 7-18 mg/dL Low BUN 6 LAB L501.1100 0.55-1.02 mg/dL Normal CREAT,SERUM 0.71 Result Comment: The validity of the calculated GFR AND GFRAA in patients over 70 years has not been determined. Clinical correlation is essential. LAB L501.1110 >60 mL/min Normal EST GFR 92 Result Comment: Non- GFR Calc LAB L501.1115 >60 mL/min Normal EST GFR - AA 111 Result Comment: GFR Calc LAB L501.1255 ml/min Normal Estimated CRCL 74.97 LAB L501.1300 10-20 RATIO Low BUN/CRE 8.4 LAB L501.2200 8.5-10 mg/dL Normal .1 CA 8.9 LAB L501.5300 136-14 mmol/L Normal 5 NA 140 LAB L501.5600 3.5-5. mmol/L Normal 1 K 3.5 LAB L501.5900 98-107 mmol/L Normal CL 103 LAB L501.6100 21.0-3 mmol/L Normal 2.0 CO2 28.0 LAB L501.6200 5-15 Normal GAP 9 Performed By: #### L500.2500, L501.4010 #### [facility] [address] [place], [address] TROPONIN-I Collected: 09/28/2018 Status: F Source: [place] 4:36 PM [facility] REPOSITORY TYPE CODE TESTS RESULT OUT OF RANGE REFERENCE UNITS LAB L501.4010 <0.045 ng/mL Normal < 0.015 TROPONIN-I Result Comment: TROPONIN-I EXPECTED VALUES <0.045 Negative 0.045 - 0.590 Consistent with Cardiac Damage > OR = 0.600 Critical Value Not every elevated troponin is indicative of MS. These values should be used with clinical judgement in examining the patient's clinical picture for diagnosis. To establish a diagnosis of MS versus myocardial injury, there must be a demonstrated rise and/or fall in the troponin values, in addition to ischemic symptoms, EKG changes, new regional wall motion abnormality, and/or angiographical evidence. PLEASE NOTE: REFERENCE RANGES EDITED 18 Performed By: #### L500.2500, L501.4010 #### [facility] [address] [place], [address] D-DIMER QUANTITATIVE Collected: 09/28/2018 Status: F Source: [place] (DVT/PE) 4:36 PM [facility] REPOSITORY TYPE CODE TESTS RESULT OUT OF RANGE REFERENCE UNITS LAB L300.8000 0.27-0.49 FEU/ug/m High alert D-DIMER 2.28 QUANT Result Comment: D-Dimer ELEVATED (>0.49): Additional studies and clinical assessments are indicated to conclude diagnosis of: Deep Vein Thrombosis (DVT) or Pulmonary Embolism (PE) CRITICAL VALUE VERIFIED. CALLED TO JOSE GRAJEDA 09/28/18 [facility]4 [place]. RESULTS READ BACK BY JOSE . Performed By: #### L300.8000 #### [facility] [address] [place], [address] CHEST PA AND LATERAL Observed: 09/28/2018 Status: F Source: [place] 4:22 PM [facility] REPOSITORY [facility] Imaging Services [address] [place] [address] Chest PA and Lateral MR#: [id number] Acct: [id number] Name: BRENDA VILLALOBOS Rep #: [id number] : 1970 F 48 From: Wyatt Dickens MD PCP: Fortino Logan MD Status: REG ER Study: Chest PA and Lateral Date of Exam: 09/28/18 Exam# [id number] Ordering Dr: Pallavi Ventura MD STUDY: X-RAY CHEST REASON FOR EXAM: Female, 48 years old. Chest pain TECHNIQUE: PA and lateral views of the chest. COMPARISON: Prior study of 03/27/2015 FINDINGS: The lungs are clear and expanded. There is no demonstrated pleural abnormality. Normal size heart. Normal mediastinum and charles. Normal visualized pulmonary arteries. Normal visualized aortic arch and descending thoracic aorta. Normal visualized thoracic spine. Normal visualized ribs, clavicles, and shoulders. There is no demonstrated abnormality of the visualized soft tissue structures of the upper abdomen. RAD/Chest PA and Lateral IMPRESSION: Normal x-ray examination of the chest. Electronically Signed: Wyatt Dickens MD at 17:55 EST , Service support , CC: Fortino Logan MD; Pallavi Ventura MD Lawn Mower Operator: Signed PROGRESS Observed: 09/28/2018 Status: COMPLETED Source: [place] 3:33 PM [facility] REPOSITORY HNO ID: [id number] Author: Markus Amaya Service: (none) Author Type: Nurse Practitioner Type: Progress Notes Filed: 09/28/2018 5:35 PM Note Text: Subjective HPI HPI Brenda Villalobos is a 48 year old female who presents today for CC of chest pressure radiating to back. This started 1 week ago. Has tried mucinex without relief. Symptoms are worsened by nothing specific. Risk factors patient has copd, is everyday smoker. Has not noticed a cough. .Patient presents with: Sinusitis: x 2 weeks PAST MEDICAL HISTORY Diagnosis Date - ALEXYS III (cervical intraepithelial neoplasia grade III) with severe dysplasia - COPD with asthma (HCC) - Dyslipidemia 04/22/2018 - Endometriosis, site unspecified Endometriosis - GERD (gastroesophageal reflux disease) - Hypothyroidism - Post-menopausal - Routine gynecological examination Dr. Chow - Vitamin D deficiency PAST SURGICAL HISTORY Procedure Laterality Date - EGD W/O BRSH SPECIMEN W/BX 05/27/2016 - OFFICE LEEP 2001 - TOTAL ABDOM HYSTERECTOMY 2002 vivian bso ALLERGIES Medrol Dose Pack [Methylprednisolone]; Bactrim [Sulfamethoxazole]; Morphine MEDICATIONS albuterol (PROVENTIL) 2.5 mg /3 mL (0.083 %) nebulizer solution Use 3 mL via nebulizer every 6 hours as needed for Wheezing/Shortness of Breath. Use over 5-15minutes. albuterol HFA (PROAIR HFA) 90 mcg/actuation inhaler USE 2 INHALATIONS EVERY 6 HOURS INSTRUCTED NEEDED ergocalciferol, vitamin D2, (VITAMIN D2 ORAL) Take by mouth. esomeprazole (NEXIUM) 40 mg capsule Take 1 capsule by mouth daily before breakfast. Estradiol (YUVAFEM) 10 mcg tab vaginal tablet Use 1 tablet vaginally twice a week. fluticasone-salmeterol HFA (ADVAIR HFA) 230-21 mcg/actuation inhaler Inhale 2 Puffs as instructed twice daily. levothyroxine (SYNTHROID) 88 mcg tablet Take one tab by mouth daily Fri-Friday. None on Friday senna (SENOKOT) 8.6 mg tab Take 1 tablet by mouth twice daily. tiotropium (SPIRIVA WITH HANDIHALER) 18 mcg inhalation capsule INHALE THE CONTENTS OF 1 CAPSULE DAILY INSTRUCTED. USE WITH HANDIHALER tolterodine ER (DETROL LA) 2 mg 24 hr capsule Take 1 capsule by mouth once daily. with a 4 mg tablet for total 6 mg a day tolterodine ER (DETROL LA) 4 mg 24 hr capsule Take 1 capsule by mouth once daily. 6 mg total daily hydrOXYzine HCl (ATARAX) 25 mg tablet Take 1-2 tabs by mouth prior to bed as needed for sleep. polyethylene glycol 3350 (MIRALAX, GLYCOLAX) 17 gram/dose powder Take 17 g by mouth once daily. Take one (1) capful in 8oz of liquid each day. FAMILY HISTORY Problem Relation Age of Onset - COPD Mother - Heart Mother - Thyroid Mother - Hypertension Mother - Kidney Disease Mother Kidney failure - Asthma Mother - Breast Cancer Mother - Diabetes Son Type 1 - Asthma Son Social History Substance Use Topics - Smoking status: Current Every Day Smoker Packs/day: 0.50 Years: 30.00 Types: Cigarettes Start date: 1981 - Smokeless tobacco: Never Used Comment: Both parents smoked in childhood home. 1st AM cigarette within 5 minutes of waking up. 01/30/16. TO - Alcohol use No Review of Systems Constitutional: Negative for chills, fever and weight loss. HENT: Positive for congestion and sinus pain. Negative for ear pain, nosebleeds and sore throat. Respiratory: Negative for cough, shortness of breath and wheezing. Cardiovascular: Positive for chest pain. Musculoskeletal: Negative for neck pain. Objective Pulse 78, temperature 36.9 ?C (98.4 ?F), temperature source Left Tympanic, resp. rate 16, weight 58.5 kg (129 lb), SpO2 100 %. Physical Exam Constitutional: She is oriented to person, place, and time and well-developed, well-nourished, and in no distress. Non-toxic appearance. She does not have a sickly appearance. No distress. HENT: Head: Normocephalic and atraumatic. Cardiovascular: Normal rate, regular rhythm, S1 normal, S2 normal and normal heart sounds. Pulmonary/Chest: Effort normal and breath sounds normal. Neurological: She is alert and oriented to person, place, and time. Gait normal. Skin: She is not diaphoretic. ASSESSMENT/PLAN: 1. Chest pressure - ICD9: 786.59, ICD10: R07.89 -I recommend ER -report called to [facility] ER MD -patient declined squad, will drive pov Markus Amaya APRN.APARTMENT LEASING AGENT CNOV Observed: 09/28/2018 Status: COMPLETED Source: [place] 2:45 PM [facility] REPOSITORY Office Visit ([facility]) BRENDA VILLALOBOS ([id number]) 1970 F Date Time Provider Department 09/28/18 2:45 PM MARKUS AMAYA ([facility]) [facility] During your visit today, we recorded the following information about you: Temperature Pulse Respiration Weight 98.4 degrees 78/minute 16/minute 58.5 kg Markus Amaya APRN.CNP 09/28/2018 5:35 PM Signed Subjective HPI HPI Brenda Villalobos is a 48 year old female who presents today for CC of chest pressure radiating to back. This started 1 week ago. Has tried mucinex without relief. Symptoms are worsened by nothing specific. Risk factors patient has copd, is everyday smoker. Has not noticed a cough. .Patient presents with: Sinusitis: x 2 weeks PAST MEDICAL HISTORY Diagnosis Date - ALEXYS III (cervical intraepithelial neoplasia grade III) with severe dysplasia - COPD with asthma (HCC) - Dyslipidemia 04/22/2018 - Endometriosis, site unspecified Endometriosis - GERD (gastroesophageal reflux disease) - Hypothyroidism - Post-menopausal - Routine gynecological examination Dr. Chow - Vitamin D deficiency PAST SURGICAL HISTORY Procedure Laterality Date - EGD W/O BRSH SPECIMEN W/BX 05/27/2016 - OFFICE LEEP 2001 - TOTAL ABDOM HYSTERECTOMY 2002 vivian bso ALLERGIES Medrol Dose Pack [Methylprednisolone]; Bactrim [Sulfamethoxazole]; Morphine MEDICATIONS albuterol (PROVENTIL) 2.5 mg /3 mL (0.083 %) nebulizer solution Use 3 mL via nebulizer every 6 hours as needed for Wheezing/Shortness of Breath. Use over 5-15minutes. albuterol HFA (PROAIR HFA) 90 mcg/actuation inhaler USE 2 INHALATIONS EVERY 6 HOURS INSTRUCTED NEEDED ergocalciferol, vitamin D2, (VITAMIN D2 ORAL) Take by mouth. esomeprazole (NEXIUM) 40 mg capsule Take 1 capsule by mouth daily before breakfast. Estradiol (YUVAFEM) 10 mcg tab vaginal tablet Use 1 tablet vaginally twice a week. fluticasone-salmeterol HFA (ADVAIR HFA) 230-21 mcg/actuation inhaler Inhale 2 Puffs as instructed twice daily. levothyroxine (SYNTHROID) 88 mcg tablet Take one tab by mouth daily Fri-Friday. None on Friday senna (SENOKOT) 8.6 mg tab Take 1 tablet by mouth twice daily. tiotropium (SPIRIVA WITH HANDIHALER) 18 mcg inhalation capsule INHALE THE CONTENTS OF 1 CAPSULE DAILY INSTRUCTED. USE WITH HANDIHALER tolterodine ER (DETROL LA) 2 mg 24 hr capsule Take 1 capsule by mouth once daily. with a 4 mg tablet for total 6 mg a day tolterodine ER (DETROL LA) 4 mg 24 hr capsule Take 1 capsule by mouth once daily. 6 mg total daily hydrOXYzine HCl (ATARAX) 25 mg tablet Take 1-2 tabs by mouth prior to bed as needed for sleep. polyethylene glycol 3350 (MIRALAX, GLYCOLAX) 17 gram/dose powder Take 17 g by mouth once daily. Take one (1) capful in 8oz of liquid each day. FAMILY HISTORY Problem Relation Age of Onset - COPD Mother - Heart Mother - Thyroid Mother - Hypertension Mother - Kidney Disease Mother Kidney failure - Asthma Mother - Breast Cancer Mother - Diabetes Son Type 1 - Asthma Son Social History Substance Use Topics - Smoking status: Current Every Day Smoker Packs/day: 0.50 Years: 30.00 Types: Cigarettes Start date: 1981 - Smokeless tobacco: Never Used Comment: Both parents smoked in childhood home. 1st AM cigarette within 5 minutes of waking up. 01/30/16. TO - Alcohol use No Review of Systems Constitutional: Negative for chills, fever and weight loss. HENT: Positive for congestion and sinus pain. Negative for ear pain, nosebleeds and sore throat. Respiratory: Negative for cough, shortness of breath and wheezing. Cardiovascular: Positive for chest pain. Musculoskeletal: Negative for neck pain. Objective Pulse 78, temperature 36.9 ?C (98.4 ?F), temperature source Left Tympanic, resp. rate 16, weight 58.5 kg (129 lb), SpO2 100 %. Physical Exam Constitutional: She is oriented to person, place, and time and well-developed, well-nourished, and in no distress. Non-toxic appearance. She does not have a sickly appearance. No distress. HENT: Head: Normocephalic and atraumatic. Cardiovascular: Normal rate, regular rhythm, S1 normal, S2 normal and normal heart sounds. Pulmonary/Chest: Effort normal and breath sounds normal. Neurological: She is alert and oriented to person, place, and time. Gait normal. Skin: She is not diaphoretic. ASSESSMENT/PLAN: 1. Chest pressure - ICD9: 786.59, ICD10: R07.89 -I recommend ER -report called to [facility] ER MD -patient declined squad, will drive pov Markus Amaya APRN.APARTMENT LEASING AGENT Referring Provider: SELF [[id number]] Allergies As of Date: 09/28/2018 Noted Allergy Reaction MEDROL DOSE PACK (METHYLPREDNISOL*01/31/2017 7 - Swelling Comments: Swelling of throat BACTRIM (SULFAMETHOXAZOLE) 08/12/2013 9 - Itching MORPHINE 08/12/2013 9 - Itching Date Reviewed: 09/28/2018 Reviewed by: Markus (Lukasz) - Fully Assessed Reason for Visit: Sinusitis [127] Cmt: x 2 weeks Primary Visit Diagnosis:Chest pressure [R07.89] Prescriptions as of 09/28/2018 Sig: ALBUTEROL SULFATE 2.5 MG/3 ML* Use 3 mL via nebulizer every * ALBUTEROL SULFATE HFA 90 MCG/* USE 2 INHALATIONS EVERY 6 NURA* VITAMIN D2 ORAL Take by mouth. ESOMEPRAZOLE MAGNESIUM 40 MG * Take 1 capsule by mouth daily* ESTRADIOL 10 MCG VAGINAL TABL* Use 1 tablet vaginally twice * FLUTICASONE-SALMETEROL 230 MC* Inhale 2 Puffs as instructed * LEVOTHYROXINE 88 MCG TABLET Take one tab by mouth daily M* SENNOSIDES 8.6 MG TABLET Take 1 tablet by mouth twice * TIOTROPIUM BROMIDE 18 MCG CAP* INHALE THE CONTENTS OF 1 CAPS* TOLTERODINE ER 2 MG CAPSULE,E* Take 1 capsule by mouth once * TOLTERODINE ER 4 MG CAPSULE,E* Take 1 capsule by mouth once * HYDROXYZINE HCL 25 MG TABLET Take 1-2 tabs by mouth prior * POLYETHYLENE GLYCOL 3350 17 G* Take 17 g by mouth once daily* Patient not taking: Reported on 05/12/2018 Problem List As Of Date 09/28/2018 Noted Resolved Post-menopausal [Z78.0] COPD with asthma (HCC) [J44.9] Vitamin D deficiency [E55.9] More... More... Smoker [F17.200] INVALID FOR* Allergic rhinitis [J30.9] INVALID FOR* Insomnia [G47.00] INVALID FOR* Acquired hypothyroidism [E03.9] INVALID FOR* More... More... Constipation [K59.00] INVALID FOR* Encounter for gynecological examination without*INVALID FOR* More... Well adult exam [Z00.00] INVALID FOR* More... Gastro-esophageal reflux disease with esophagit*INVALID FOR* More... 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 [facility] [address] [place], [place] [address] Brenda Villalobos [address] [place], [place] [id number] 09/23/2018 [facility] #: [id number] Dear , Due to unforeseen circumstances, there has been a change in the schedule for Dr. Lynn's office. Your original appointment was scheduled for 01/26/19 at 2:50pm. Please give our office a call at [phone] to reschedule your appointment. We apologize for any inconvenience this may cause you. Sincerely, [facility] CNOV Observed: 07/31/2018 Status: COMPLETED Source: [place] 2:50 PM [facility] REPOSITORY Office Visit (WOOB) BRENDA VILLALOBOS ([id number]) 1970 F Date Time Provider Department 07/31/18 2:50 PM PAIGE LYNN During your visit today, we recorded the following information about you: Blood pressure Weight 102/64 57.6 kg Paige Lynn MD 07/31/2018 5:50 PM Signed Brenda Villalobos is a 48 year old female who presents for problem visit for f/u vaginal pain and urinary frequency.. HPI: 48-year-old female for follow-up vaginal pain and urinary frequency. She is doing much better on the Detrol 6 mg a day. She does have some dry mouth and dry eyes. However, this is tolerable and she has other medications that contribute to the symptoms as well. She has not started the vaginal estrogen yet. She was concerned about risk of strokes and DVT being that she is a smoker. She denies any vaginal bleeding. She has cut back on her caffeine. She is trying to stop smoking. She is can talk to her primary care physician about a prescription for Wellbutrin for this. PAST MEDICAL HISTORY Diagnosis Date - ALEXYS III (cervical intraepithelial neoplasia grade III) with severe dysplasia - COPD with asthma (HCC) - Dyslipidemia 04/22/2018 - Endometriosis, site unspecified Endometriosis - GERD (gastroesophageal reflux disease) - Hypothyroidism - Post-menopausal - Routine gynecological examination Dr. Chow - Vitamin D deficiency PAST SURGICAL HISTORY Procedure Laterality Date - EGD W/O BRSH SPECIMEN W/BX 05/27/2016 - OFFICE LEEP 2001 - TOTAL ABDOM HYSTERECTOMY 2002 vivian bso FAMILY HISTORY Problem Relation Age of Onset - COPD Mother - Heart Mother - Thyroid Mother - Hypertension Mother - Kidney Disease Mother Kidney failure - Asthma Mother - Breast Cancer Mother - Diabetes Son Type 1 - Asthma Son Social History Marital status: Spouse name: Years of education: Number of children: 2 Occupational History Occupation Employer Comment [employer] Social History Main Topics Smoking status: Current Every Day Smoker Packs/day: 0.50 Years: 30.00 Types: Cigarettes Start date: 1981 Smokeless tobacco: Never Used Comment: Both parents smoked in childhood home. 1st AM cigarette within 5 minutes of waking up. 01/30/16. TO Alcohol use: No Drug use: No Sexual activity: Yes Partners with: Male control/protection: Surgical Comment: Pt has had a Hysterectomy Current Outpatient Prescriptions: tolterodine ER (DETROL LA) 4 mg 24 hr capsule Take 1 capsule by mouth once daily. 6 mg total daily tolterodine ER (DETROL LA) 2 mg 24 hr capsule Take 1 capsule by mouth once daily. with a 4 mg tablet for total 6 mg a day ergocalciferol, vitamin D2, (VITAMIN D2 ORAL) Take by mouth. Estradiol (YUVAFEM) 10 mcg tab vaginal tablet Use 1 tablet vaginally twice a week. tiotropium (SPIRIVA WITH HANDIHALER) 18 mcg inhalation capsule INHALE THE CONTENTS OF 1 CAPSULE DAILY INSTRUCTED. USE WITH HANDIHALER fluticasone-salmeterol HFA (ADVAIR HFA) 230-21 mcg/actuation inhaler Inhale 2 Puffs as instructed twice daily. hydrOXYzine HCl (ATARAX) 25 mg tablet Take 1-2 tabs by mouth prior to bed as needed for sleep. levothyroxine (SYNTHROID) 88 mcg tablet Take one tab by mouth daily Fri-Friday. None on Friday albuterol (PROVENTIL) 2.5 mg /3 mL (0.083 %) nebulizer solution Use 3 mL via nebulizer every 6 hours as needed for Wheezing/Shortness of Breath. Use over 5-15minutes. esomeprazole (NEXIUM) 40 mg capsule Take 1 capsule by mouth daily before breakfast. senna (SENOKOT) 8.6 mg tab Take 1 tablet by mouth twice daily. albuterol HFA (PROAIR HFA) 90 mcg/actuation inhaler USE 2 INHALATIONS EVERY 6 HOURS INSTRUCTED NEEDED polyethylene glycol 3350 (MIRALAX, GLYCOLAX) 17 gram/dose powder Take 17 g by mouth once daily. Take one (1) capful in 8oz of liquid each day. (Patient not taking: Reported on 05/12/2018 ) No current facility-administered medications for this visit. Allergies As of Date: 07/31/2018 Allergen Noted Reaction MEDROL DOSE PACK [METHYLPREDNISOL*01/31/2017 Swelling BACTRIM [SULFAMETHOXAZOLE] 08/12/2013 Itching MORPHINE 08/12/2013 Itching Fully Assessed 07/31/2018 Allergies and current medication updated:Yes EXAM: BP 102/64 Wt 127 lb (57.6kg) GENERAL: pleasant, female in no apparent distress ASSESSMENT AND PLAN: Urinary frequency and urgency, bladder pain, atrophic vaginitis I reviewed with the patient risks benefits and alternatives to the trial of vaginal estrogen again. We discussed that the risks of VTE are minimal with this type of vaginal estrogen dosing. After discussion, she states she is comfortable trialing this. I did encourage her to continue to cut back on the caffeine, and avoid bladder irritants. I encouraged her to continue with her smoking cessation efforts and plans. She is to follow-up in 6 months or as needed. I discussed with her that she may decrease the Detrol 4 mg a day in 2-3 months after the vaginal estrogen have some time to take effect. She is in agreement with this plan. Paige Lynn MD Referring Provider: MIAN REYES (KRISHNA) [[id number]] Allergies As of Date: 07/31/2018 Noted Allergy Reaction MEDROL DOSE PACK (METHYLPREDNISOL*01/31/2017 7 - Swelling Comments: Swelling of throat BACTRIM (SULFAMETHOXAZOLE) 08/12/2013 9 - Itching MORPHINE 08/12/2013 9 - Itching Date Reviewed: 07/31/2018 Reviewed by: Paige Lynn - Fully Assessed Reason for Visit: Follow Up [171] Primary Visit Diagnosis:Bladder pain [R39.89] Other Visit Diagnosis:Urinary frequency [R35.0] Prescriptions as of 07/31/2018 Sig: TOLTERODINE ER 4 MG CAPSULE,E* Take 1 capsule by mouth once * TOLTERODINE ER 2 MG CAPSULE,E* Take 1 capsule by mouth once * VITAMIN D2 ORAL Take by mouth. ESTRADIOL 10 MCG VAGINAL TABL* Use 1 tablet vaginally twice * TIOTROPIUM BROMIDE 18 MCG CAP* INHALE THE CONTENTS OF 1 CAPS* FLUTICASONE-SALMETEROL 230 MC* Inhale 2 Puffs as instructed * HYDROXYZINE HCL 25 MG TABLET Take 1-2 tabs by mouth prior * LEVOTHYROXINE 88 MCG TABLET Take one tab by mouth daily M* ALBUTEROL SULFATE 2.5 MG/3 ML* Use 3 mL via nebulizer every * ESOMEPRAZOLE MAGNESIUM 40 MG * Take 1 capsule by mouth daily* SENNOSIDES 8.6 MG TABLET Take 1 tablet by mouth twice * ALBUTEROL SULFATE HFA 90 MCG/* USE 2 INHALATIONS EVERY 6 NURA* POLYETHYLENE GLYCOL 3350 17 G* Take 17 g by mouth once daily* Patient not taking: Reported on 05/12/2018 Problem List As Of Date 07/31/2018 Noted Resolved Post-menopausal [Z78.0] Priority: C COPD with asthma (HCC) [J44.9] Priority: A Vitamin D deficiency [E55.9] Priority: B More... More... Smoker [F17.200] INVALID FOR* Priority: C Allergic rhinitis [J30.9] INVALID FOR* Priority: B Insomnia [G47.00] INVALID FOR* Priority: B Acquired hypothyroidism [E03.9] INVALID FOR* Priority: A More... More... Constipation [K59.00] INVALID FOR* Priority: C Encounter for gynecological examination without*INVALID FOR* Priority: E More... Well adult exam [Z00.00] INVALID FOR* Priority: E More... Gastro-esophageal reflux disease with esophagit*INVALID FOR* Priority: A More... 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] INVALID FOR* Priority: A Encounter for screening for cardiovascular diso*INVALID FOR* Encounter for screening for diabetes mellitus [*INVALID FOR* Elevated fasting blood sugar [R73.01] INVALID FOR* Priority: A Encounter for screening mammogram for breast ca*INVALID FOR* Dyslipidemia [E78.5] INVALID FOR* Priority: A Encounter Status:Closed by PAIGE LYNN MD on 07/31/18 PROGRESS Observed: 07/31/2018 Status: COMPLETED Source: [place] 2:48 PM [facility] REPOSITORY HNO ID: [id number] Author: Paige Lynn Service: (none) Author Type: Physician Type: Progress Notes Filed: 07/31/2018 5:50 PM Note Text: Brenda Villalobos is a 48 year old female who presents for problem visit for f/u vaginal pain and urinary frequency.. HPI: 48-year-old female for follow-up vaginal pain and urinary frequency. She is doing much better on the Detrol 6 mg a day. She does have some dry mouth and dry eyes. However, this is tolerable and she has other medications that contribute to the symptoms as well. She has not started the vaginal estrogen yet. She was concerned about risk of strokes and DVT being that she is a smoker. She denies any vaginal bleeding. She has cut back on her caffeine. She is trying to stop smoking. She is can talk to her primary care physician about a prescription for Wellbutrin for this. PAST MEDICAL HISTORY Diagnosis Date - ALEXYS III (cervical intraepithelial neoplasia grade III) with severe dysplasia - COPD with asthma (HCC) - Dyslipidemia 04/22/2018 - Endometriosis, site unspecified Endometriosis - GERD (gastroesophageal reflux disease) - Hypothyroidism - Post-menopausal - Routine gynecological examination Dr. Chow - Vitamin D deficiency PAST SURGICAL HISTORY Procedure Laterality Date - EGD W/O BRSH SPECIMEN W/BX 05/27/2016 - OFFICE LEEP 2001 - TOTAL ABDOM HYSTERECTOMY 2002 vivian bso FAMILY HISTORY Problem Relation Age of Onset - COPD Mother - Heart Mother - Thyroid Mother - Hypertension Mother - Kidney Disease Mother Kidney failure - Asthma Mother - Breast Cancer Mother - Diabetes Son Type 1 - Asthma Son Social History Marital status: Spouse name: Years of education: Number of children: 2 Occupational History Occupation Employer Comment [employer] Social History Main Topics Smoking status: Current Every Day Smoker Packs/day: 0.50 Years: 30.00 Types: Cigarettes Start date: 1981 Smokeless tobacco: Never Used Comment: Both parents smoked in childhood home. 1st AM cigarette within 5 minutes of waking up. 01/30/16. TO Alcohol use: No Drug use: No Sexual activity: Yes Partners with: Male control/protection: Surgical Comment: Pt has had a Hysterectomy Current Outpatient Prescriptions: tolterodine ER (DETROL LA) 4 mg 24 hr capsule Take 1 capsule by mouth once daily. 6 mg total daily tolterodine ER (DETROL LA) 2 mg 24 hr capsule Take 1 capsule by mouth once daily. with a 4 mg tablet for total 6 mg a day ergocalciferol, vitamin D2, (VITAMIN D2 ORAL) Take by mouth. Estradiol (YUVAFEM) 10 mcg tab vaginal tablet Use 1 tablet vaginally twice a week. tiotropium (SPIRIVA WITH HANDIHALER) 18 mcg inhalation capsule INHALE THE CONTENTS OF 1 CAPSULE DAILY INSTRUCTED. USE WITH HANDIHALER fluticasone-salmeterol HFA (ADVAIR HFA) 230-21 mcg/actuation inhaler Inhale 2 Puffs as instructed twice daily. hydrOXYzine HCl (ATARAX) 25 mg tablet Take 1-2 tabs by mouth prior to bed as needed for sleep. levothyroxine (SYNTHROID) 88 mcg tablet Take one tab by mouth daily Fri-Friday. None on Friday albuterol (PROVENTIL) 2.5 mg /3 mL (0.083 %) nebulizer solution Use 3 mL via nebulizer every 6 hours as needed for Wheezing/Shortness of Breath. Use over 5-15minutes. esomeprazole (NEXIUM) 40 mg capsule Take 1 capsule by mouth daily before breakfast. senna (SENOKOT) 8.6 mg tab Take 1 tablet by mouth twice daily. albuterol HFA (PROAIR HFA) 90 mcg/actuation inhaler USE 2 INHALATIONS EVERY 6 HOURS INSTRUCTED NEEDED polyethylene glycol 3350 (MIRALAX, GLYCOLAX) 17 gram/dose powder Take 17 g by mouth once daily. Take one (1) capful in 8oz of liquid each day. (Patient not taking: Reported on 05/12/2018 ) No current facility-administered medications for this visit. Allergies As of Date: 07/31/2018 Allergen Noted Reaction MEDROL DOSE PACK [METHYLPREDNISOL*01/31/2017 Swelling BACTRIM [SULFAMETHOXAZOLE] 08/12/2013 Itching MORPHINE 08/12/2013 Itching Fully Assessed 07/31/2018 Allergies and current medication updated:Yes EXAM: BP 102/64 Wt 127 lb (57.6kg) GENERAL: pleasant, female in no apparent distress ASSESSMENT AND PLAN: Urinary frequency and urgency, bladder pain, atrophic vaginitis I reviewed with the patient risks benefits and alternatives to the trial of vaginal estrogen again. We discussed that the risks of VTE are minimal with this type of vaginal estrogen dosing. After discussion, she states she is comfortable trialing this. I did encourage her to continue to cut back on the caffeine, and avoid bladder irritants. I encouraged her to continue with her smoking cessation efforts and plans. She is to follow-up in 6 months or as needed. I discussed with her that she may decrease the Detrol 4 mg a day in 2-3 months after the vaginal estrogen have some time to take effect. She is in agreement with this plan. Paige Lynn MD PROGRESS Observed: 05/12/2018 Status: COMPLETED Source: [place] 2:57 PM [facility] RE[facility] HNO ID: [id number] Author: Paige Lynn Service: (none) Author Type: Physician Type: Progress Notes Filed: 05/12/2018 5:46 PM Note Text: Brenda Villalobos is a 48 year old female who presents for problem visit for c/o pelvic pain. . HPI: 48 YOF noted one day she woke up w/ lower abdominal pain and was seen here. Sent to urology and then referred back here. Was started on detrol and felt discomfort improved. Now past week feels worse again. Feels need to empty, voids, feels better for 5-10 min then feels urge to go again. No dysuria. Feels inflamed and swollen in pelvic area. No pain in vagina but pressure there at times too. Gets up at night once a night on detrol 2-3 without it. Doesn't always feel empty. No hesitancy of stream. Denies anything protruding from vagina but feels like something is sitting there at times. pain w/ intercourse since this started. Had hysterectomy about 14 yrs ago for endometriosis. No hematuria. Drinks cranberry juice and used azo prn for this. PO intake coffee in am and soda-diet in afternoon. Tob use 1/2 pack per day. No alcohol. Some water intake. had ovaries out w/ hyst and has been off hormones for a few years. Some vaginal dryness. PAST MEDICAL HISTORY Diagnosis Date - ALEXYS III (cervical intraepithelial neoplasia grade III) with severe dysplasia - COPD with asthma (HCC) - Dyslipidemia 04/22/2018 - Endometriosis, site unspecified Endometriosis - GERD (gastroesophageal reflux disease) - Hypothyroidism - Post-menopausal - Routine gynecological examination Dr. Chow - Vitamin D deficiency PAST SURGICAL HISTORY Procedure Laterality Date - EGD W/O BRSH SPECIMEN W/BX 05/27/2016 - OFFICE LEEP 2001 - TOTAL ABDOM HYSTERECTOMY 2002 vivian bso FAMILY HISTORY Problem Relation Age of Onset - COPD Mother - Heart Mother - Thyroid Mother - Hypertension Mother - Kidney Disease Mother Kidney failure - Asthma Mother - Breast Cancer Mother - Diabetes Son Type 1 - Asthma Son Social History Marital status: Spouse name: Years of education: Number of children: 2 Occupational History Occupation Employer Comment [employer] Social History Main Topics Smoking status: Current Every Day Smoker Packs/day: 0.50 Years: 30.00 Types: Cigarettes Start date: 1981 Smokeless tobacco: Never Used Comment: Both parents smoked in childhood home. 1st AM cigarette within 5 minutes of waking up. 01/30/16. TO Alcohol use: No Drug use: No Sexual activity: Yes Partners with: Male control/protection: Surgical Comment: Pt has had a Hysterectomy Current Outpatient Prescriptions: ergocalciferol, vitamin D2, (VITAMIN D2 ORAL) Take by mouth. tiotropium (SPIRIVA WITH HANDIHALER) 18 mcg inhalation capsule INHALE THE CONTENTS OF 1 CAPSULE DAILY INSTRUCTED. USE WITH HANDIHALER fluticasone-salmeterol HFA (ADVAIR HFA) 230-21 mcg/actuation inhaler Inhale 2 Puffs as instructed twice daily. hydrOXYzine HCl (ATARAX) 25 mg tablet Take 1-2 tabs by mouth prior to bed as needed for sleep. levothyroxine (SYNTHROID) 88 mcg tablet Take one tab by mouth daily Fri-Friday. None on Friday albuterol (PROVENTIL) 2.5 mg /3 mL (0.083 %) nebulizer solution Use 3 mL via nebulizer every 6 hours as needed for Wheezing/Shortness of Breath. Use over 5-15minutes. esomeprazole (NEXIUM) 40 mg capsule Take 1 capsule by mouth daily before breakfast. senna (SENOKOT) 8.6 mg tab Take 1 tablet by mouth twice daily. tolterodine ER (DETROL LA) 4 mg 24 hr capsule Take 1 capsule by mouth once daily. ACETAMINOPHEN (TYLENOL 8 HOUR ORAL) Take 2 Tablespoonsful by mouth as needed. albuterol HFA (PROAIR HFA) 90 mcg/actuation inhaler USE 2 INHALATIONS EVERY 6 HOURS INSTRUCTED NEEDED polyethylene glycol 3350 (MIRALAX, GLYCOLAX) 17 gram/dose powder Take 17 g by mouth once daily. Take one (1) capful in 8oz of liquid each day. (Patient not taking: Reported on 05/12/2018 ) No current facility-administered medications for this visit. Allergies As of Date: 05/12/2018 Allergen Noted Reaction MEDROL DOSE PACK [METHYLPREDNISOL*01/31/2017 Swelling BACTRIM [SULFAMETHOXAZOLE] 08/12/2013 Itching MORPHINE 08/12/2013 Itching Fully Assessed 05/12/2018 REVIEW OF SYSTEMS Abdomen: No bloating, early satiety, indigestion, or increased flatulence. No abdominal pain, nausea, vomiting, diarrhea, or constipation. Bladder: see HPI. Allergies and current medication updated:Yes EXAM: There were no vitals taken for this visit. GENERAL: pleasant, female in no apparent distress ABDOMEN: soft, no hernia, no masses, Mild tenderness in Generalized, rebound Absent and guarding Absent PELVIC: Normal external genitalia, normal introitus. Normal urethra without prolapse or caruncle. Normal mons pubis, normal labia, normal hair distribution pattern. Normal perineal body without lesions and normal perianal area. Vagina with thin atrophic ruggae, no lesions, first degree cystocele, no signif. rectocele, good vault support. thin discharge in the vault. cervix absent, Blood is absent. no levator spasm BIMANUAL: no adnexal masses, non-tender, uterus surgically absent and tender over bladder ASSESSMENT AND PLAN: pelvic pain, urinary frequency, neg UA and urine culture will check urine for atypical bacteria d/w her need to signif. alter bladder irritant intake, push water. Will change from detrol to vesicare and see if improves. Reassured no signif. prolapse. If not improved significantly improved would consider referral to urology to consider eval for painful bladder syndrome atrohic vagina, r/b/a to trial vaginal estrogen reveiwed. Will try this. F/u in 3 months. Paige Lynn MD CNOV Observed: 05/12/2018 Status: COMPLETED Source: [place] 2:50 PM [facility] REPOSITORY Office Visit (WOOB) BRENDA VILLALOBOS ([id number]) 1970 F Date Time Provider Department 05/12/18 2:50 PM PAIGE LYNN [facility] During your visit today, we recorded the following information about you: Blood pressure Weight 104/58 57.6 kg Paige Lynn MD 05/12/2018 5:46 PM Addendum Brenda Villalobos is a 48 year old female who presents for problem visit for c/o pelvic pain. . HPI: 48 YOF noted one day she woke up w/ lower abdominal pain and was seen here. Sent to urology and then referred back here. Was started on detrol and felt discomfort improved. Now past week feels worse again. Feels need to empty, voids, feels better for 5-10 min then feels urge to go again. No dysuria. Feels inflamed and swollen in pelvic area. No pain in vagina but pressure there at times too. Gets up at night once a night on detrol 2-3 without it. Doesn't always feel empty. No hesitancy of stream. Denies anything protruding from vagina but feels like something is sitting there at times. pain w/ intercourse since this started. Had hysterectomy about 14 yrs ago for endometriosis. No hematuria. Drinks cranberry juice and used azo prn for this. PO intake coffee in am and soda-diet in afternoon. Tob use 1/2 pack per day. No alcohol. Some water intake. had ovaries out w/ hyst and has been off hormones for a few years. Some vaginal dryness. PAST MEDICAL HISTORY Diagnosis Date - ALEXYS III (cervical intraepithelial neoplasia grade III) with severe dysplasia - COPD with asthma (HCC) - Dyslipidemia 04/22/2018 - Endometriosis, site unspecified Endometriosis - GERD (gastroesophageal reflux disease) - Hypothyroidism - Post-menopausal - Routine gynecological examination Dr. 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 Social History Main Topics Smoking status: Current Every Day Smoker Packs/day: 0.50 Years: 30.00 Types: Cigarettes Start date: 1981 Smokeless tobacco: Never Used Comment: Both parents smoked in childhood home. 1st AM cigarette within 5 minutes of waking up. 01/30/16. TO Alcohol use: No Drug use: No Sexual activity: Yes Partners with: Male control/protection: Surgical Comment: Pt has had a Hysterectomy Current Outpatient Prescriptions: ergocalciferol, vitamin D2, (VITAMIN D2 ORAL) Take by mouth. tiotropium (SPIRIVA WITH HANDIHALER) 18 mcg inhalation capsule INHALE THE CONTENTS OF 1 CAPSULE DAILY INSTRUCTED. USE WITH HANDIHALER fluticasone-salmeterol HFA (ADVAIR HFA) 230-21 mcg/actuation inhaler Inhale 2 Puffs as instructed twice daily. hydrOXYzine HCl (ATARAX) 25 mg tablet Take 1-2 tabs by mouth prior to bed as needed for sleep. levothyroxine (SYNTHROID) 88 mcg tablet Take one tab by mouth daily Fri-Friday. None on Friday albuterol (PROVENTIL) 2.5 mg /3 mL (0.083 %) nebulizer solution Use 3 mL via nebulizer every 6 hours as needed for Wheezing/Shortness of Breath. Use over 5-15minutes. esomeprazole (NEXIUM) 40 mg capsule Take 1 capsule by mouth daily before breakfast. senna (SENOKOT) 8.6 mg tab Take 1 tablet by mouth twice daily. tolterodine ER (DETROL LA) 4 mg 24 hr capsule Take 1 capsule by mouth once daily. ACETAMINOPHEN (TYLENOL 8 HOUR ORAL) Take 2 Tablespoonsful by mouth as needed. albuterol HFA (PROAIR HFA) 90 mcg/actuation inhaler USE 2 INHALATIONS EVERY 6 HOURS INSTRUCTED NEEDED polyethylene glycol 3350 (MIRALAX, GLYCOLAX) 17 gram/dose powder Take 17 g by mouth once daily. Take one (1) capful in 8oz of liquid each day. (Patient not taking: Reported on 05/12/2018 ) No current facility-administered medications for this visit. Allergies As of Date: 05/12/2018 Allergen Noted Reaction MEDROL DOSE PACK [METHYLPREDNISOL*01/31/2017 Swelling BACTRIM [SULFAMETHOXAZOLE] 08/12/2013 Itching MORPHINE 08/12/2013 Itching Fully Assessed 05/12/2018 REVIEW OF SYSTEMS Abdomen: No bloating, early satiety, indigestion, or increased flatulence. No abdominal pain, nausea, vomiting, diarrhea, or constipation. Bladder: see HPI. Allergies and current medication updated:Yes EXAM: There were no vitals taken for this visit. GENERAL: pleasant, female in no apparent distress ABDOMEN: soft, no hernia, no masses, Mild tenderness in Generalized, rebound Absent and guarding Absent PELVIC: Normal external genitalia, normal introitus. Normal urethra without prolapse or caruncle. Normal mons pubis, normal labia, normal hair distribution pattern. Normal perineal body without lesions and normal perianal area. Vagina with thin atrophic ruggae, no lesions, first degree cystocele, no signif. rectocele, good vault support. thin discharge in the vault. cervix absent, Blood is absent. no levator spasm BIMANUAL: no adnexal masses, non-tender, uterus surgically absent and tender over bladder ASSESSMENT AND PLAN: pelvic pain, urinary frequency, neg UA and urine culture will check urine for atypical bacteria d/w her need to signif. alter bladder irritant intake, push water. Will change from detrol to vesicare and see if improves. Reassured no signif. prolapse. If not improved significantly improved would consider referral to urology to consider eval for painful bladder syndrome atrohic vagina, r/b/a to trial vaginal estrogen reveiwed. Will try this. F/u in 3 months. Paige Lynn MD Referring Provider: MIAN ERYES) [[id number]] Allergies As of Date: 05/12/2018 Noted Allergy Reaction MEDROL DOSE PACK (METHYLPREDNISOL*01/31/2017 7 - Swelling Comments: Swelling of throat BACTRIM (SULFAMETHOXAZOLE) 08/12/2013 9 - Itching MORPHINE 08/12/2013 9 - Itching Date Reviewed: 05/12/2018 Reviewed by: Yisel Kilgore Ma - Fully Assessed Reason for Visit: Discussion [813] Cmt: bladder pain- on detrol ER Reason For Visit History Recorded Primary Visit Diagnosis:Bladder pain [R39.89] Other Visit Diagnoses:Pelvic pressure in female [R10.2] Urinary frequency [R35.0] Order(s):solifenacin (VESICARE) 5 mg tabletTake 2 tablets by mouth once daily.Disp: 30 tabletRfl: 3 Estradiol (YUVAFEM) 10 mcg tab vaginal tabletUse 1 tablet vaginally twice a week.Disp: 8 tabletRfl: 12 MYCOPLASMA CULT [SQMYPLAS] Order #: [id number] Prescriptions as of 05/12/2018 Sig: VITAMIN D2 ORAL Take by mouth. TIOTROPIUM BROMIDE 18 MCG CAP* INHALE THE CONTENTS OF 1 CAPS* FLUTICASONE-SALMETEROL 230 MC* Inhale 2 Puffs as instructed * HYDROXYZINE HCL 25 MG TABLET Take 1-2 tabs by mouth prior * LEVOTHYROXINE 88 MCG TABLET Take one tab by mouth daily M* ALBUTEROL SULFATE 2.5 MG/3 ML* Use 3 mL via nebulizer every * ESOMEPRAZOLE MAGNESIUM 40 MG * Take 1 capsule by mouth daily* SENNOSIDES 8.6 MG TABLET Take 1 tablet by mouth twice * ALBUTEROL SULFATE HFA 90 MCG/* USE 2 INHALATIONS EVERY 6 NURA* SOLIFENACIN 5 MG TABLET Take 2 tablets by mouth once * ESTRADIOL 10 MCG VAGINAL TABL* Use 1 tablet vaginally twice * POLYETHYLENE GLYCOL 3350 17 G* Take 17 g by mouth once daily* Patient not taking: Reported on 05/12/2018 Problem List As Of Date 05/12/2018 Noted Resolved Post-menopausal [Z78.0] Priority: C COPD with asthma (HCC) [J44.9] Priority: A Vitamin D deficiency [E55.9] Priority: B More... More... Smoker [F17.200] INVALID FOR* Priority: C Allergic rhinitis [J30.9] INVALID FOR* Priority: B Insomnia [G47.00] INVALID FOR* Priority: B Acquired hypothyroidism [E03.9] INVALID FOR* Priority: A More... More... Constipation [K59.00] INVALID FOR* Priority: C Encounter for gynecological examination without*INVALID FOR* Priority: E More... Well adult exam [Z00.00] INVALID FOR* Priority: E More... Gastro-esophageal reflux disease with esophagit*INVALID FOR* Priority: A More... 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] INVALID FOR* Priority: A Encounter for screening for cardiovascular diso*INVALID FOR* Encounter for screening for diabetes mellitus [*INVALID FOR* Elevated fasting blood sugar [R73.01] INVALID FOR* Priority: A Encounter for screening mammogram for breast ca*INVALID FOR* Dyslipidemia [E78.5] INVALID FOR* Priority: A Prescriptions ordered this encounter Disp Refills Start End SOLIFENACIN 5 MG TABLET 30 t* 3 05/12/2018 Route: ORAL Sig: Take 2 tablets by mouth once daily. ESTRADIOL 10 MCG VAGINAL TABLET 14 t* 0 05/12/2018 05/12/2018 Route: VAGINAL Sig: Use 1 tablet vaginally once daily for 14 days. ESTRADIOL 10 MCG VAGINAL TABLET 8 ta* 12 05/12/2018 Class: Print RX Route: VAGINAL Sig: Use 1 tablet vaginally twice a week. Medications Discontinued During This Encounter ACETAMINOPHEN (TYLENOL 8 HOUR ORAL) 05/12/2018 Class: Historical Med Route: ORAL Sig: Take 2 Tablespoonsful by mouth as needed. Disc: Reason for discontinue is not on file. tolterodine ER (DETROL LA) 4 mg 24 h* 30 c* 3 02/11/2018 05/12/2018 Route: ORAL Sig: Take 1 capsule by mouth once daily. Disc: Reason for discontinue is not on file. Estradiol (YUVAFEM) 10 mcg tab vagin* 14 t* 0 05/12/2018 05/12/2018 Route: VAGINAL Sig: Use 1 tablet vaginally once daily for 14 days. Disc: Reason for discontinue is not on file. Encounter Status:Closed by PAIGE LYNN MD on 05/12/18 Observed: 05/12/2018 Status: F Source: [facility] MYCOPLASMA CULT 4:14 AM [facility] REPOSITORY Test Result - Culture negative for Mycoplasma hominis and Ureaplasma urealyticum Performed By: #### MYPLAS #### [facility] [address] [place], [place] [address] [facility] Observed: 04/29/2018 Status: COMPLETED Source: [facility] 4:31 PM [facility] REPOSITORY HNO ID: [id number] Author: Mammography Coordinator Service: (none) Author Type: Physician Type: Letter Filed: 04/30/2018 11:32 PM Note Text: April 29, 2018 PID: [id number] Brenda Villalobos [address] [place] [address] Dear Ms. Villalobos, We are pleased to inform you that the results of your recent breast imaging exam on 04/29/2018 are normal. Early detection of cancer is very important. We also understand recommendations regarding breast cancer screening are controversial. Please discuss with your primary care provider which strategy is best for you and whether a mammogram is right for you. Your imaging studies and report will be kept on file at [facility] as part of your permanent medical record and are available for your continuing care. Thank you for allowing us to help in meeting your health care needs. Sincerely, Dr. Gardner Interpreting Radiologist [facility] (Normal over 40) [facility] SCREENING Observed: 04/29/2018 Status: F Source: [facility] 3:58 PM [facility] REPOSITORY * * *Final Report* * * DATE OF EXAM: Apr 29 2018 3:58PM [facility] [id number] - [facility] SCREENING / PROCEDURE REASON: multiple diagnoses * * * * Physician Interpretation * * * * RESULT: #[id number] - [facility] SCREENING BILATERAL DIGITAL SCREENING MAMMOGRAM WITH CAD: 04/29/2018 HISTORY: Screening Mammogram - patient reports NO breast symptoms /priors available for comparison. RESULT: TECHNIQUE: The study was acquired using full field digital technology and interpreted from soft copy. Current study was also evaluated with a Computer Aided Detection (CAD). Comparison is made to exams dated: 05/28/2016 mammogram and 12/20/2014 mammogram - [facility]. There are scattered fibroglandular elements in both breasts. No significant masses, calcifications, or other findings are seen in either breast. There has been no significant interval change. IMPRESSION: NEGATIVE There is no mammographic evidence of malignancy.A 1 year screening mammogram is recommended. Umberto tomas/vick:04/29/2018 16:31:02 Impregnator And Drier: Azul CORTEZ(R)(M), [facility] letter sent: Normal over 40 Mammogram BI-RADS: 1 Negative Lawn Mower Operator: Vick Transcribe Date/Time: Apr 29 2018 3:17P Dictated by: UMBERTO GARDNER MD This examination was interpreted and the report reviewed and electronically signed by: UMBERTO GARDNER MD on Apr 29 2018 4:31PM EST [id number] Observed: 04/29/2018 Status: COMPLETED Source: [facility] 3:16 PM [facility] REPOSITORY HNO ID: [id number] Author: Terell Cortez Service: (none) Author Type: (none) Type: Progress Notes Filed: 04/29/2018 3:16 PM Note Text: Radiology Service Progress Note PATIENT NAME: Brenda Villalobos DATE OF SERVICE: April 29, 2018 TIME: 3:16 PM PATIENT IDENTITY VERIFICATION COMPLETED USING TWO (2) METHODS: Patient confirmed name verbally and Date of . PATIENT GENDER DATA: Female. status: : No status: NO. PATIENT RELEVANT IMPLANT DATA REVIEWED: Not Applicable RADIOLOGY DEPARTMENT: [facility] DATA: Not applicable SIGNED BY: Terell Cortez April 29, 2018 3:16 PM PROGRESS Observed: 04/22/2018 Status: COMPLETED Source: [facility] 2:34 PM [facility] REPOSITORY O ID: [id number] Author: Fortino Logan Service: (none) Author Type: Physician Type: Progress Notes Filed: 04/22/2018 6:11 PM Note Text: Chief Complaint Patient presents with: Physical: 6 months HPI Brenda Villalobos is a 47 year old female who presents here today for WAE and routine. patient with Hx as reviewed and documented. Breathing is ok with good and bad days but nothing out of norm. Past medical history, appointments, medications, allergies reviewed. Previous Medical History PAST MEDICAL HISTORY Diagnosis Date - ALEXYS III (cervical intraepithelial neoplasia grade III) with severe dysplasia - COPD with asthma (HCC) - Endometriosis, site unspecified Endometriosis - GERD (gastroesophageal reflux disease) - Hypothyroidism - Post-menopausal - Routine gynecological examination Dr. Chow - Vitamin D deficiency Previous Surgical History PAST SURGICAL HISTORY Procedure Laterality Date - EGD W/O BRSH SPECIMEN W/BX 05/27/2016 - OFFICE LEEP 2001 - TOTAL ABDOM HYSTERECTOMY 2002 [facility] Family History FAMILY HISTORY Problem Relation Age of Onset - COPD Mother - Heart Mother - Thyroid Mother - Hypertension Mother - Kidney Disease Mother Kidney failure - Asthma Mother - Breast Cancer Mother - Diabetes Son Type 1 - Asthma Son Patient Allergies ALLERGIES Allergen Reactions - Bactrim [Sulfametho* Itching - Medrol Dose Pack [M* Swelling Swelling of throat - Morphine Itching Current Medications Current Outpatient Prescriptions on File Prior to Visit: tolterodine ER (DETROL LA) 4 mg 24 hr capsule Take 1 capsule by mouth once daily. ACETAMINOPHEN (TYLENOL 8 HOUR ORAL) Take 2 Tablespoonsful by mouth as needed. albuterol (PROVENTIL) 2.5 mg /3 mL (0.083 %) nebulizer solution Use 3 mL via nebulizer every 6 hours as needed for Wheezing/Shortness of Breath. Use over 5-15minutes. levothyroxine (SYNTHROID) 88 mcg tablet Take one tab by mouth daily Fri-Friday. None on Friday hydrOXYzine HCl (ATARAX) 25 mg tablet Take 1-2 tabs by mouth prior to bed as needed for sleep. fluticasone-salmeterol HFA (ADVAIR HFA) 230-21 mcg/actuation inhaler Inhale 2 Puffs as instructed twice daily. polyethylene glycol 3350 (MIRALAX, GLYCOLAX) 17 gram/dose powder Take 17 g by mouth once daily. Take one (1) capful in 8oz of liquid each day. albuterol HFA (PROAIR HFA) 90 mcg/actuation inhaler USE 2 INHALATIONS EVERY 6 HOURS INSTRUCTED NEEDED No current facility-administered medications on file prior to visit. 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 1st AM cigarette within 5 minutes of waking up. 01/30/16. TO Alcohol use: No Drug use: No Sexual activity: Yes Partners with: Male control/protection: Surgical Comment: Pt has had a Hysterectomy Review of Symptoms REVIEW OF SYSTEMS GENERAL: No weight loss, malaise or fevers HEENT: Negative for frequent or significant headaches, significant change in vision, significant vision problems, significant ear problems or hearing loss, nasal discharge, or nose bleeds, sore throat, difficulty swallowing, mouth lesions, hoarseness NECK: Negative for lumps, goiter, pain and significant neck swelling RESPIRATORY: Negative for cough, hemoptysis. See HPI CARDIOVASCULAR: Negative for chest pain, leg swelling, hypertension, CHF or palpitations GI: No nausea, vomiting, or diarrhea. Still has GERD daily but better with the nexium than with her other meds. : No history of dysuria, frequency or incontinence MUSCULOSKELETAL: Negative for joint pain or swelling, back pain or muscle pain SKIN: Negative for lesions, rash, and itching PSYCH: Negative for sleep disturbance, mood disorder and recent psychosocial stressors HEMATOLOGY/LYMPHOLOGY: Negative for prolonged bleeding, bruising easily or swollen nodes ENDOCRINE: Negative for cold or heat intolerance, polyuria, polydipsia and goiter NEURO: No history of headaches, syncope, paralysis, seizures or tremors EXAM: BP 104/66 (BP Site: Right Arm, BP Position: Sitting, BP Cuff Size: Regular Adult) Pulse 72 Resp 14 Ht 158.8 cm (5' 2.5) Wt 56.7 kg (125 lb) BMI 22.50 kg/m? General Appearance: Well appearing, alert, in no acute distress, well-hydrated, well nourished.. Skin: Skin color, texture, turgor normal, no suspicious rashes or lesions. Head: Normocephalic, no masses, lesions, tenderness or abnormalities. Eyes: Anicteric sclera. Pupils are equally round and reactive to light. Extraocular movements are intact. . Ears: External ears normal, canals clear. Nose/Sinuses: Nares normal, septum midline, mucosa normal, no drainage or sinus tenderness. Oropharynx: Lips, mucosa, and tongue normal, teeth and gums normal, oropharynx normal. Neck: Supple, no adenopathy; thyroid symmetric, normal size, no bruits. Lungs: Lungs clear to auscultation. No wheezing, rhonchi, rales. Heart: RRR without murmur, gallop, or rubs. No ectopy. Abdomen: Normal abdominal exam, Abdomen soft, non-tender. Bowel sounds normal. No masses, organomegaly. Extremities: No deformities, edema, skin discoloration. Musculoskeletal: Muscular strength intact, No joint swelling, deformity, or tenderness. Peripheral Pulses: Normal. Neurologic: Gait normal. Reflexes normal and symmetric. Sensation to light touch and crainal nerves 2-12 intact.. Health Maintenance List MAMMOGRAM due on 05/28/2017 INFLUENZA(1) due on 06/13/2018 PAP EVERY 5 YEARS due on 12/09/2019 HPV EVERY 5 YEARS due on 12/09/2019 DIABETES SCREEN due on 04/04/2021 LIPID SCREEN due on 04/04/2023 DTAP,TDAP,TD(2 - Td) due on 04/22/2028 ONE PNEUMOVAX PRIOR TO AGE 65 Completed Data reviewed Component Latest Ref Rng AND Units 04/04/2018 NA 136 - 145 mmol/L 139 K 3.5 - 5.1 mmol/L 4.1 Chloride 98 - 107 MEQ/L 108 (A) CO2 21 - 32 MEQ/L 28.0 Glucose 74 - 106 MG/DL 92 BUN 7 - 18 MG/DL 12 Creatinine 0.6 - 1.3 MG/DL 0.63 GFR mL/MIN 106 GFR AFR AMER mL/MIN 128 Total Protein 6.4 - 8.2 gm/dL 7.4 Albumin 3.2 - 4.6 gm/dL 3.9 Calcium 8.5 - 10.1 mg/dL 8.8 Bili Total 0.2 - 1 mg/dL 0.60 AST 8 - 37 U/L 10 ALT (SGPT) 12 - 78 U/L 16 Alk Phos Total 45 - 117 U/L 79 Triglyceride 149 mg/dL 59 Cholesterol, Total 0 - 200 MG/DL 233 (A) HDC-L 41 mg/dL 168 (A) LDL Chol, calculated 130 MG/DL 12 A/P ASSESSMENT/PLAN: 1. Well adult exam - ICD9: V70.0, ICD10: Z00.00 (primary diagnosis) - Encouraged monthly Breast Self Exam - Follow up for annual exam in one year. - KRANTHI SCREENING 2. COPD with chronic bronchitis (HCC) - ICD9: 491.20, ICD10: J44.9 Stable with current Tx. No changes - FLUTICASONE-SALMETEROL 230 MCG-21 MCG/ACTUATION HFA AEROSOL INHALER 3. COPD with asthma (HCC) - ICD9: 493.20, ICD10: J44.9 As above - Continue current meds - Avoidance of triggers recommended 4. Insomnia, unspecified type - ICD9: 780.52, ICD10: G47.00 Cont - HYDROXYZINE HCL 25 MG TABLET 5. Acquired hypothyroidism - ICD9: 244.9, ICD10: E03.9 - Instructed patient on importance of taking on an empty stomach either first thing in the morning or at bedtime. - continue current dose of Synthroid 0.088 mg - LEVOTHYROXINE 88 MCG TABLET 6. Gastro-esophageal reflux disease with esophagitis - ICD9: 530.11, ICD10: K21.0 - Continue treatment with Nexium 40 mg QD 7. Gastric hyperplasia - ICD9: 535.20, ICD10: K29.60 - As above 8. Elevated fasting blood sugar - ICD9: 790.21, ICD10: R73.01 - Will monitor. Recent BS was ok. 9. Vitamin D deficiency - ICD9: 268.9, ICD10: E55.9 - Patient intolerant to Vit D 10. Smoker - ICD9: 305.1, ICD10: F17.200 - Cessation encouraged. - Counseling was given focusing on the harmful effects of this addiction especially given the patient's medical condition(s) which will be worsened because of the chemicals in tobacco. - Counseling was given 3-4 minutes. 11. Other constipation - ICD9: 564.09, ICD10: K59.09 Will try - SENNOSIDES 8.6 MG TABLET twice a day 12. Encounter for screening mammogram for breast cancer - ICD9: V76.12, ICD10: Z12.31 Check - KRANTHI SCREENING 13. Dyslipidemia - ICD9: 272.4, ICD10: E78.5 - suboptimal control - Encouraged following a low fat, low cholesterol diet. - Discussed the benefits of regular aerobic exercise and weight loss. - Encouraged following a low carbohydrate, healthy oil intake diet. Signed Prescriptions Disp Refills tiotropium (SPIRIVA WITH HANDIHALER) 18 mcg inhalation capsule 90 capsule 1 Sig: INHALE THE CONTENTS OF 1 CAPSULE DAILY INSTRUCTED. USE WITH HANDIHALER VANESSA: No fluticasone-salmeterol HFA (ADVAIR HFA) 230-21 mcg/actuation inhaler 3 Inhaler 1 Sig: Inhale 2 Puffs as instructed twice daily. VANESSA: No hydrOXYzine HCl (ATARAX) 25 mg tablet 180 tablet 1 Sig: Take 1-2 tabs by mouth prior to bed as needed for sleep. VANESSA: No levothyroxine (SYNTHROID) 88 mcg tablet 90 tablet 1 Sig: Take one tab by mouth daily Fri-Friday. None on Friday VANESSA: No albuterol (PROVENTIL) 2.5 mg /3 mL (0.083 %) nebulizer solution 1 Package 5 Sig: Use 3 mL via nebulizer every 6 hours as needed for Wheezing/Shortness of Breath. Use over 5-15minutes. VANESSA: No esomeprazole (NEXIUM) 40 mg capsule 90 capsule 3 Sig: Take 1 capsule by mouth daily before breakfast. VANESSA: No senna (SENOKOT) 8.6 mg tab 60 tablet 5 Sig: Take 1 tablet by mouth twice daily. f/u 6 months routine, check FLP, TSH and A1c prior. Fortino Logan MD CNOV Observed: 04/22/2018 Status: COMPLETED Source: [place] 2:00 PM [facility] REPOSITORY Office Visit (FAMPWS) BRENDA VILLALOBOS ([id number]) 1970 F Date Time Provider Department 04/22/18 2:00 PM FORTINO LOGAN FAMPWS During your visit today, we recorded the following information about you: Pulse Respiration Blood pressure Weight 72/minute 14/minute 104/66 56.7 kg Height 1.588 m Fortino Logan MD 04/22/2018 6:11 PM Signed Chief Complaint Patient presents with: Physical: 6 months HPI Brenda Villalobos is a 47 year old female who presents here today for WAE and routine. patient with Hx as reviewed and documented. Breathing is ok with good and bad days but nothing out of norm. Past medical history, appointments, medications, allergies reviewed. Previous Medical History PAST MEDICAL HISTORY Diagnosis Date - ALEXYS III (cervical intraepithelial neoplasia grade III) with severe dysplasia - COPD with asthma (HCC) - Endometriosis, site unspecified Endometriosis - GERD (gastroesophageal reflux disease) - Hypothyroidism - Post-menopausal - Routine gynecological examination Dr. Chow - Vitamin D deficiency Previous Surgical History PAST SURGICAL HISTORY Procedure Laterality Date - EGD W/O BRSH SPECIMEN W/BX 05/27/2016 - OFFICE LEEP 2001 - TOTAL ABDOM HYSTERECTOMY 2002 [facility] Family History FAMILY HISTORY Problem Relation Age of Onset - COPD Mother - Heart Mother - Thyroid Mother - Hypertension Mother - Kidney Disease Mother Kidney failure - Asthma Mother - Breast Cancer Mother - Diabetes Son Type 1 - Asthma Son Patient Allergies ALLERGIES Allergen Reactions - Bactrim [Sulfametho* Itching - Medrol Dose Pack [M* Swelling Swelling of throat - Morphine Itching Current Medications Current Outpatient Prescriptions on File Prior to Visit: jianodine ER (DETROL LA) 4 mg 24 hr capsule Take 1 capsule by mouth once daily. ACETAMINOPHEN (TYLENOL 8 HOUR ORAL) Take 2 Tablespoonsful by mouth as needed. albuterol (PROVENTIL) 2.5 mg /3 mL (0.083 %) nebulizer solution Use 3 mL via nebulizer every 6 hours as needed for Wheezing/Shortness of Breath. Use over 5-15minutes. levothyroxine (SYNTHROID) 88 mcg tablet Take one tab by mouth daily Fri-Friday. None on Friday hydrOXYzine HCl (ATARAX) 25 mg tablet Take 1-2 tabs by mouth prior to bed as needed for sleep. fluticasone-salmeterol HFA (ADVAIR HFA) 230-21 mcg/actuation inhaler Inhale 2 Puffs as instructed twice daily. polyethylene glycol 3350 (MIRALAX, GLYCOLAX) 17 gram/dose powder Take 17 g by mouth once daily. Take one (1) capful in 8oz of liquid each day. albuterol HFA (PROAIR HFA) 90 mcg/actuation inhaler USE 2 INHALATIONS EVERY 6 HOURS INSTRUCTED NEEDED No current facility-administered medications on file prior to visit. Social History Social History Marital status: Spouse name: Years of education: Number of children: 2 Occupational History Occupation Employer Comment [employer] Social History Main Topics Smoking status: Current Every Day Smoker Packs/day: 0.50 Years: 30.00 Types: Cigarettes Start date: 1981 Smokeless tobacco: Never Used Comment: Both parents smoked in childhood home. 1st AM cigarette within 5 minutes of waking up. 01/30/16. TO Alcohol use: No Drug use: No Sexual activity: Yes Partners with: Male control/protection: Surgical Comment: Pt has had a Hysterectomy Review of Symptoms REVIEW OF SYSTEMS GENERAL: No weight loss, malaise or fevers HEENT: Negative for frequent or significant headaches, significant change in vision, significant vision problems, significant ear problems or hearing loss, nasal discharge, or nose bleeds, sore throat, difficulty swallowing, mouth lesions, hoarseness NECK: Negative for lumps, goiter, pain and significant neck swelling RESPIRATORY: Negative for cough, hemoptysis. See HPI CARDIOVASCULAR: Negative for chest pain, leg swelling, hypertension, CHF or palpitations GI: No nausea, vomiting, or diarrhea. Still has GERD daily but better with the nexium than with her other meds. : No history of dysuria, frequency or incontinence MUSCULOSKELETAL: Negative for joint pain or swelling, back pain or muscle pain SKIN: Negative for lesions, rash, and itching PSYCH: Negative for sleep disturbance, mood disorder and recent psychosocial stressors HEMATOLOGY/LYMPHOLOGY: Negative for prolonged bleeding, bruising easily or swollen nodes ENDOCRINE: Negative for cold or heat intolerance, polyuria, polydipsia and goiter NEURO: No history of headaches, syncope, paralysis, seizures or tremors EXAM: BP 104/66 (BP Site: Right Arm, BP Position: Sitting, BP Cuff Size: Regular Adult) Pulse 72 Resp 14 Ht 158.8 cm (5' 2.5) Wt 56.7 kg (125 lb) BMI 22.50 kg/m? General Appearance: Well appearing, alert, in no acute distress, well-hydrated, well nourished.. Skin: Skin color, texture, turgor normal, no suspicious rashes or lesions. Head: Normocephalic, no masses, lesions, tenderness or abnormalities. Eyes: Anicteric sclera. Pupils are equally round and reactive to light. Extraocular movements are intact. . Ears: External ears normal, canals clear. Nose/Sinuses: Nares normal, septum midline, mucosa normal, no drainage or sinus tenderness. Oropharynx: Lips, mucosa, and tongue normal, teeth and gums normal, oropharynx normal. Neck: Supple, no adenopathy; thyroid symmetric, normal size, no bruits. Lungs: Lungs clear to auscultation. No wheezing, rhonchi, rales. Heart: RRR without murmur, gallop, or rubs. No ectopy. Abdomen: Normal abdominal exam, Abdomen soft, non-tender. Bowel sounds normal. No masses, organomegaly. Extremities: No deformities, edema, skin discoloration. Musculoskeletal: Muscular strength intact, No joint swelling, deformity, or tenderness. Peripheral Pulses: Normal. Neurologic: Gait normal. Reflexes normal and symmetric. Sensation to light touch and crainal nerves 2-12 intact.. Health Maintenance List MAMMOGRAM due on 05/28/2017 INFLUENZA(1) due on 06/13/2018 PAP EVERY 5 YEARS due on 12/09/2019 HPV EVERY 5 YEARS due on 12/09/2019 DIABETES SCREEN due on 04/04/2021 LIPID SCREEN due on 04/04/2023 DTAP,TDAP,TD(2 - Td) due on 04/22/2028 ONE PNEUMOVAX PRIOR TO AGE 65 Completed Data reviewed Component Latest Ref Rng AND Units 04/04/2018 NA 136 - 145 mmol/L 139 K 3.5 - 5.1 mmol/L 4.1 Chloride 98 - 107 MEQ/L 108 (A) CO2 21 - 32 MEQ/L 28.0 Glucose 74 - 106 MG/DL 92 BUN 7 - 18 MG/DL 12 Creatinine 0.6 - 1.3 MG/DL 0.63 GFR mL/MIN 106 GFR AFR AMER mL/MIN 128 Total Protein 6.4 - 8.2 gm/dL 7.4 Albumin 3.2 - 4.6 gm/dL 3.9 Calcium 8.5 - 10.1 mg/dL 8.8 Bili Total 0.2 - 1 mg/dL 0.60 AST 8 - 37 U/L 10 ALT (SGPT) 12 - 78 U/L 16 Alk Phos Total 45 - 117 U/L 79 Triglyceride 149 mg/dL 59 Cholesterol, Total 0 - 200 MG/DL 233 (A) HDC-L 41 mg/dL 168 (A) LDL Chol, calculated 130 MG/DL 12 A/P ASSESSMENT/PLAN: 1. Well adult exam - ICD9: V70.0, ICD10: Z00.00 (primary diagnosis) - Encouraged monthly Breast Self Exam - Follow up for annual exam in one year. - KRANTHI SCREENING 2. COPD with chronic bronchitis (HCC) - ICD9: 491.20, ICD10: J44.9 Stable with current Tx. No changes - FLUTICASONE-SALMETEROL 230 MCG-21 MCG/ACTUATION HFA AEROSOL INHALER 3. COPD with asthma (HCC) - ICD9: 493.20, ICD10: J44.9 As above - Continue current meds - Avoidance of triggers recommended 4. Insomnia, unspecified type - ICD9: 780.52, ICD10: G47.00 Cont - HYDROXYZINE HCL 25 MG TABLET 5. Acquired hypothyroidism - ICD9: 244.9, ICD10: E03.9 - Instructed patient on importance of taking on an empty stomach either first thing in the morning or at bedtime. - continue current dose of Synthroid 0.088 mg - LEVOTHYROXINE 88 MCG TABLET 6. Gastro-esophageal reflux disease with esophagitis - ICD9: 530.11, ICD10: K21.0 - Continue treatment with Nexium 40 mg QD 7. Gastric hyperplasia - ICD9: 535.20, ICD10: K29.60 - As above 8. Elevated fasting blood sugar - ICD9: 790.21, ICD10: R73.01 - Will monitor. Recent BS was ok. 9. Vitamin D deficiency - ICD9: 268.9, ICD10: E55.9 - Patient intolerant to Vit D 10. Smoker - ICD9: 305.1, ICD10: F17.200 - Cessation encouraged. - Counseling was given focusing on the harmful effects of this addiction especially given the patient's medical condition(s) which will be worsened because of the chemicals in tobacco. - Counseling was given 3-4 minutes. 11. Other constipation - ICD9: 564.09, ICD10: K59.09 Will try - SENNOSIDES 8.6 MG TABLET twice a day 12. Encounter for screening mammogram for breast cancer - ICD9: V76.12, ICD10: Z12.31 Check - KRANTHI SCREENING 13. Dyslipidemia - ICD9: 272.4, ICD10: E78.5 - suboptimal control - Encouraged following a low fat, low cholesterol diet. - Discussed the benefits of regular aerobic exercise and weight loss. - Encouraged following a low carbohydrate, healthy oil intake diet. Signed Prescriptions Disp Refills tiotropium (SPIRIVA WITH HANDIHALER) 18 mcg inhalation capsule 90 capsule 1 Sig: INHALE THE CONTENTS OF 1 CAPSULE DAILY INSTRUCTED. USE WITH HANDIHALER VANESSA: No fluticasone-salmeterol HFA (ADVAIR HFA) 230-21 mcg/actuation inhaler 3 Inhaler 1 Sig: Inhale 2 Puffs as instructed twice daily. VANESSA: No hydrOXYzine HCl (ATARAX) 25 mg tablet 180 tablet 1 Sig: Take 1-2 tabs by mouth prior to bed as needed for sleep. VANESSA: No levothyroxine (SYNTHROID) 88 mcg tablet 90 tablet 1 Sig: Take one tab by mouth daily Fri-Friday. None on Friday VANESSA: No albuterol (PROVENTIL) 2.5 mg /3 mL (0.083 %) nebulizer solution 1 Package 5 Sig: Use 3 mL via nebulizer every 6 hours as needed for Wheezing/Shortness of Breath. Use over 5-15minutes. VANESSA: No esomeprazole (NEXIUM) 40 mg capsule 90 capsule 3 Sig: Take 1 capsule by mouth daily before breakfast. VANESSA: No senna (SENOKOT) 8.6 mg tab 60 tablet 5 Sig: Take 1 tablet by mouth twice daily. f/u 6 months routine, check FLP, TSH and A1c prior. Fortino Logan MD Referring Provider: FORTINO LOGAN [[id number]] Allergies As of Date: 04/22/2018 Noted Allergy Reaction MEDROL DOSE PACK (METHYLPREDNISOL*01/31/2017 7 - Swelling Comments: Swelling of throat BACTRIM (SULFAMETHOXAZOLE) 08/12/2013 9 - Itching MORPHINE 08/12/2013 9 - Itching Date Reviewed: 04/22/2018 Reviewed by: Fortino Logan - Fully Assessed Reason for Visit: Physical [83] Cmt: 6 months Primary Visit Diagnosis:Well adult exam [Z00.00] Other Visit Diagnoses:COPD with chronic bronchitis (HCC) [J44.9] COPD with asthma (HCC) [J44.9] Insomnia, unspecified type [G47.00] Acquired hypothyroidism [E03.9] Gastro-esophageal reflux disease with esophagitis [K21.0] 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] Elevated fasting blood sugar [R73.01] Vitamin D deficiency [E55.9] Smoker [F17.200] Other constipation [K59.09] Encounter for screening mammogram for breast cancer [Z12.31] Dyslipidemia [E78.5] Order(s):tiotropium (SPIRIVA WITH HANDIHALER) 18 mcg inhalation capsuleINHALE THE CONTENTS OF 1 CAPSULE DAILY INSTRUCTED. USE WITH HANDIHALERDisp: 90 capsuleRfl: 1 fluticasone-salmeterol HFA (ADVAIR HFA) 230-21 mcg/actuation inhalerInhale 2 Puffs as instructed twice daily.Disp: 3 InhalerRfl: 1 hydrOXYzine HCl (ATARAX) 25 mg tabletTake 1-2 tabs by mouth prior to bed as needed for sleep.Disp: 180 tabletRfl: 1 levothyroxine (SYNTHROID) 88 mcg tabletTake one tab by mouth daily Fri-Friday. None on FridayDisp: 90 tabletRfl: 1 albuterol (PROVENTIL) 2.5 mg /3 mL (0.083 %) nebulizer solutionUse 3 mL via nebulizer every 6 hours as needed for Wheezing/Shortness of Breath. Use over 5-15minutes.Disp: 1 PackageRfl: 5 KRANTHI SCREENING [[id number]] Order #: [id number] FUTURE esomeprazole (NEXIUM) 40 mg capsuleTake 1 capsule by mouth daily before breakfast.Disp: 90 capsuleRfl: 3 senna (SENOKOT) 8.6 mg tabTake 1 tablet by mouth twice daily.Disp: 60 tabletRfl: 5 HGB A1C [RKQFC0G] Order #: [id number] FUTURE LIPID PANEL BASIC [SQLIPB] Order #: [id number] FUTURE TSH BLD [SQTSH] Order #: [id number] FUTURE Prescriptions as of 04/22/2018 Sig: FLUTICASONE-SALMETEROL 230 MC* Inhale 2 Puffs as instructed * HYDROXYZINE HCL 25 MG TABLET Take 1-2 tabs by mouth prior * LEVOTHYROXINE 88 MCG TABLET Take one tab by mouth daily M* ALBUTEROL SULFATE 2.5 MG/3 ML* Use 3 mL via nebulizer every * TOLTERODINE ER 4 MG CAPSULE,E* Take 1 capsule by mouth once * TYLENOL 8 HOUR ORAL Take 2 Tablespoonsful by mout* POLYETHYLENE GLYCOL 3350 17 G* Take 17 g by mouth once daily* ALBUTEROL SULFATE HFA 90 MCG/* USE 2 INHALATIONS EVERY 6 NURA* TIOTROPIUM BROMIDE 18 MCG CAP* INHALE THE CONTENTS OF 1 CAPS* ESOMEPRAZOLE MAGNESIUM 40 MG * Take 1 capsule by mouth daily* SENNOSIDES 8.6 MG TABLET Take 1 tablet by mouth twice * Problem List As Of Date 04/22/2018 Noted Resolved Post-menopausal [Z78.0] Priority: C COPD with asthma (HCC) [J44.9] Priority: A Vitamin D deficiency [E55.9] Priority: B More... More... Smoker [F17.200] INVALID FOR* Priority: C Allergic rhinitis [J30.9] INVALID FOR* Priority: B Insomnia [G47.00] INVALID FOR* Priority: B Acquired hypothyroidism [E03.9] INVALID FOR* Priority: A More... More... Constipation [K59.00] INVALID FOR* Priority: C Encounter for gynecological examination without*INVALID FOR* Priority: E More... Well adult exam [Z00.00] INVALID FOR* Priority: E More... Gastro-esophageal reflux disease with esophagit*INVALID FOR* Priority: A More... 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] INVALID FOR* Priority: A Encounter for screening for cardiovascular diso*INVALID FOR* Encounter for screening for diabetes mellitus [*INVALID FOR* Elevated fasting blood sugar [R73.01] INVALID FOR* Priority: A Encounter for screening mammogram for breast ca*INVALID FOR* Dyslipidemia [E78.5] INVALID FOR* Priority: A Prescriptions ordered this encounter Disp Refills Start End TIOTROPIUM BROMIDE 18 MCG CAPSULE WI* 90 c* 1 04/22/2018 Sig: INHALE THE CONTENTS OF 1 CAPSULE DAILY INSTRUCTED. USE WITH HANDIHALER FLUTICASONE-SALMETEROL 230 MCG-21 MC* 3 In* 1 04/22/2018 Route: INHALATION Sig: Inhale 2 Puffs as instructed twice daily. HYDROXYZINE HCL 25 MG TABLET 180 * 1 04/22/2018 Sig: Take 1-2 tabs by mouth prior to bed as needed for sleep. LEVOTHYROXINE 88 MCG TABLET 90 t* 1 04/22/2018 Sig: Take one tab by mouth daily Fri-Friday. None on Friday ALBUTEROL SULFATE 2.5 MG/3 ML (0.083* 1 Pa* 5 04/22/2018 Route: NEBULIZATION Sig: Use 3 mL via nebulizer every 6 hours as needed for Wheezing/Shortness of Breath. Use over 5-15minutes. ESOMEPRAZOLE MAGNESIUM 40 MG CAPSULE* 90 c* 3 04/22/2018 Route: ORAL Sig: Take 1 capsule by mouth daily before breakfast. SENNOSIDES 8.6 MG TABLET 60 t* 5 04/22/2018 Route: ORAL Sig: Take 1 tablet by mouth twice daily. Medications Discontinued During This Encounter Cholecalciferol, Vitamin D3, 1,000 u* 0 04/06/2018 04/22/2018 Class: Med Update Route: ORAL Sig: Take 4 capsules by mouth once daily. Disc: Discontinued by Patient fluticasone (FLONASE) 50 mcg/actuati* 1 Neno* 0 11/10/2017 04/22/2018 Route: EACH NOSTRIL Sig: Use 2 Sprays in each nostril once daily. Rinse mouth after use. Disc: Discontinued by Patient fluticasone-salmeterol HFA (ADVAIR H* 3 In* 3 10/22/2017 04/22/2018 Route: INHALATION Sig: Inhale 2 Puffs as instructed twice daily. Disc: Reason for discontinue is not on file. hydrOXYzine HCl (ATARAX) 25 mg tablet 180 * 1 10/22/2017 04/22/2018 Sig: Take 1-2 tabs by mouth prior to bed as needed for sleep. Disc: Reason for discontinue is not on file. levothyroxine (SYNTHROID) 88 mcg tab* 90 t* 1 10/22/2017 04/22/2018 Sig: Take one tab by mouth daily Fri-Friday. None on Friday Disc: Reason for discontinue is not on file. albuterol (PROVENTIL) 2.5 mg /3 mL (* 1 Pa* 5 10/23/2017 04/22/2018 Route: NEBULIZATION -UNSPEC Sig: Use 3 mL via nebulizer every 6 hours as needed for Wheezing/Shortness of Breath. Use over 5-15minutes. Disc: Reason for discontinue is not on file. Disposition: Return in about 6 months (around 10/23/2018) for routine. Follow-up and Disposition History Recorded Encounter Status:Closed by FORTINO LOGAN on 04/22/18 JOSSE Observed: 04/06/2018 Status: COMPLETED Source: [place] 12:00 AM [facility] BRENDA VILLALOBOS ([id number]) 1970 F Date Time Provider Department 04/06/18 FORTINO LOGAN During your visit today, we recorded the following information about you: Fortino Logan MD 04/06/2018 11:15 PM Signed Let patient know Vit D still too low. Advise her to increase her Vit D to 4,000 IU's a day. Darlyn Barnes LPN 04/07/2018 9:12 AM Signed Spoke with pt gave information provoided.Pt voices understanding. Allergies As of Date: 04/06/2018 Noted Allergy Reaction BACTRIM (SULFAMETHOXAZOLE) 08/12/2013 9 - Itching MEDROL DOSE PACK (METHYLPREDNISOL*01/31/2017 7 - Swelling Comments: Swelling of throat MORPHINE 08/12/2013 9 - Itching Date Reviewed: 02/06/2018 Reviewed by: Afua Aragon LPN - Fully Assessed Reason for Visit: Results [95] Order(s):Cholecalciferol, Vitamin D3, 1,000 unit capTake 4 capsules by mouth once daily.Disp: Rfl: 0 CMP (EXTERNAL) [[id number]] Order #: [id number] LIPID PANEL (EXTERNAL) [[id number]] Order #: [id number] Prescriptions as of 04/06/2018 Sig: CHOLECALCIFEROL (VITAMIN D3) * Take 4 capsules by mouth once* TOLTERODINE ER 4 MG CAPSULE,E* Take 1 capsule by mouth once * FLUTICASONE 50 MCG/ACTUATION * Use 2 Sprays in each nostril * TYLENOL 8 HOUR ORAL Take 2 Tablespoonsful by mout* ALBUTEROL SULFATE 2.5 MG/3 ML* Use 3 mL via nebulizer every * LEVOTHYROXINE 88 MCG TABLET Take one tab by mouth daily M* HYDROXYZINE HCL 25 MG TABLET Take 1-2 tabs by mouth prior * FLUTICASONE-SALMETEROL 230 MC* Inhale 2 Puffs as instructed * POLYETHYLENE GLYCOL 3350 17 G* Take 17 g by mouth once daily* ALBUTEROL SULFATE HFA 90 MCG/* USE 2 INHALATIONS EVERY 6 NURA* Problem List As Of Date 04/06/2018 Noted Resolved Post-menopausal [Z78.0] Priority: C COPD with asthma (HCC) [J44.9] Priority: A Vitamin D deficiency [E55.9] Priority: B More... More... Smoker [F17.200] INVALID FOR* Priority: C Allergic rhinitis [J30.9] INVALID FOR* Priority: B Insomnia [G47.00] INVALID FOR* Priority: B Acquired hypothyroidism [E03.9] INVALID FOR* Priority: A More... More... Constipation [K59.00] INVALID FOR* Priority: C Encounter for gynecological examination without*INVALID FOR* Priority: E More... Well adult exam [Z00.00] INVALID FOR* Priority: E More... Gastro-esophageal reflux disease with esophagit*INVALID FOR* Priority: A More... 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] INVALID FOR* Priority: A Encounter for screening for cardiovascular diso*INVALID FOR* Encounter for screening for diabetes mellitus [*INVALID FOR* Elevated fasting blood sugar [R73.01] INVALID FOR* Priority: A Prescriptions ordered this encounter Disp Refills Start End CHOLECALCIFEROL (VITAMIN D3) 1,000 U* 0 04/06/2018 Class: Med Update Route: ORAL Sig: Take 4 capsules by mouth once daily. Medications Discontinued During This Encounter Cholecalciferol, Vitamin D3, 1,000 u* 0 10/22/2017 04/06/2018 Class: Med Update Route: ORAL Sig: Take 2 capsules by mouth once daily. Disc: Reason for discontinue is not on file. Encounter Status:Closed by DARLYN BARNES LPN on 04/07/18 COMPREHENSIVE METABOLIC Collected: 04/04/2018 Status: F Source: [facility] 8:00 AM [facility] REPOSITORY TYPE CODE TESTS RESULT OUT OF RANGE REFERENCE UNITS LAB L501.0100 74-106 mg/dL Normal GLU 92 Result Comment: Please note revised GLUCOSE reference range effective 2017. LAB L501.1000 7-18 mg/dL Normal BUN 12 LAB L501.1100 0.55-1.02 mg/dL Normal CREAT,SERUM 0.63 Result Comment: The validity of the calculated GFR AND GFRAA in patients over 70 years has not been determined. Clinical correlation is essential. LAB L501.1110 >60 mL/min Normal EST GFR 106 Result Comment: Non- GFR Calc LAB L501.1115 >60 mL/min Normal EST GFR - AA 128 Result Comment: GFR Calc LAB L501.1300 10-20 RATIO Normal BUN/CRE 19.0 LAB L501.1500 6.4-8.2 g/dL T Normal PROT 7.4 LAB L501.1800 3.2-5.0 g/dL Normal ALB 3.9 LAB L501.1950 2.2-4.2 g/dL Normal GLOB 3.5 LAB L501.2000 0.9-2.4 RATIO Normal A/G 1.1 LAB L501.2200 8.5-10.1 mg/dL CA Normal 8.8 LAB L501.4100 15-37 U/L Low AST 10 LAB L501.4305 45-117 U/L Normal ALK P 79 LAB L501.4405 13-56 U/L Normal ALT 16 LAB L501.4600 0.20-1.00 mg/dL T Normal BILI 0.60 LAB L501.5300 136-145 mmol/L NA Normal 139 LAB L501.5600 3.5-5.1 mmol/L K Normal 4.1 LAB L501.5900 98-107 mmol/L High CL 108 LAB L501.6100 21.0-32.0 mmol/L Normal CO2 28.0 LAB L501.6200 5-15 Low GAP 3 Performed By: #### L500.4050, L500.4100 #### [facility] [address] [place], [address] LIPID PROFILE Collected: 04/04/2018 Status: F Source: [facility] 8:00 AM [facility] REPOSITORY TYPE CODE TESTS RESULT OUT OF RANGE REFERENCE UNITS LAB L501.4900 200 mg/dL High CHOL 233 Result Comment: <200 mg/dL Desirable 200-240 mg/dL Borderline >240 mg/dL High Risk LAB L501.5000 mg/dL Normal TRIG 59 Result Comment: The drugs N-Acetylcysteine and Metamizole may falsely depress this assay. Serum Triglycerides Reference Interval Normal <150 mg/dL Borderline high 150 - 199 mg/dL High 200 - 499 mg/dL Very High > or = 500 mg/dL LAB L501.6400 mg/dL Normal HDL 53 Result Comment: The drugs N-Acetylcysteine and Metamizole may falsely depress this assay. Reference Range HDL <40 mg/dL Low HDL Cholesterol HDL >or= 60 mg/dL High HDL Cholesterol LAB L501.6500 0-130 mg/dL High LDL 168 LAB L501.6600 5-40 mg/dL Normal VLDL 12 Performed By: #### L500.4050, L500.4100 #### [facility] [address] [place], [address] VITAMIN D,25 HYDROXY Collected: 04/04/2018 Status: F Source: [place] 8:00 AM [facility] REPOSITORY TYPE CODE TESTS RESULT OUT OF REFERENCE UNITS RANGE LAB L506.1000 29.95-100.01 ng/mL Low Vitamin D 22.9 25-OH Result Comment: Vitamin D 25(OH) Status Range Deficiency <20 ng/mL (50nmol/L) Insuffciency 20 - 30 ng/mL (50 - 75 nmol/L) Sufficiency 30 - 100 ng/mL (75 - 250 nmol/L) Toxicity >100 ng/mL (>250 nmol/L) Performed By: #### L506.1000 #### [facility] [address] [place], [address] PT D/C SUMMARY (1) Observed: 02/26/2018 Status: F Source: [place] 9:03 AM [facility] REPOSITORY [facility] [address] [place] [address] Fax REHABILITATION SERVICES DISCHARGE SUMMARY MR#: [id number] Acct: [id number] Name: BRENDA VILLALOBOS Rep #: [id number] : 1970 47 From: Juan Galeas DPT, OCS, CSCS Referring DrRin: Jennifer Workman DPM Status: REG RCR Insurance: [employer] INSURANCE HP - PT D/C Summary It has been my pleasure to treat BRENDA VILLALOBOS under orders from Jennifer Workman DPM, for the diagnosis of L healing 2 MT fx, Stress 3//5 MT and talus for a total of 10 visit(s). Discharge Date: 12/24/17 Please see the following information for a summary of their discharge status. - Subjective Subjective: Sleep is OK. Up and down pain, more described as stiffness, not relating to any activity in particular. To doctor in two weeks. HEP : going well and still challenging but improving. All activities normal. - Pain L foot metatarsals Pain Intensity (Out of 10): 0 - Overall Improvement % Improvement: 40 - Objective Objective/Function: Walks without deviations and normal steps. AROM L ankle and MT full and strength in ankle 5/5. Nild discomfort with pressure to top of metatarsal 123 and with squeeze of Metatarsal but it is transient. Toe aROM full. Gait pattern is normal. OVERALL, DOING VERY WELL AND WILL COTNINUE EX VIA HEP, LIKELY READY TO RETURN TO WORK AFTER NEXT DOC APPT AT END OF MONTH. - Goals Goal 1:: Full ROM B ankles and Metatarsals without pain Goal Progress: Goal Met Goal 2:: Patient wean out of boot without increased pain for 8-10 hours. Goal Progress: Goal Met Goal 3:: Patient feel ready to return to work without increased pain Goal Progress: met aftr 27th doc visit. Goal 4:: I approp HEP to minimize future problems. Goal Progress: Goal Met Goal 5:: Tolerating 3-4 hours on feet without increased pain. Goal Progress: Goal Met - Plan Plan: D/C PT. - D/C Information Discharge Comments: Pt to doctor in two weeks and will likely be ready to return to work. If there are questions or concerns regarding this patient's physical therapy, please feel free to call me at [phone]. Thank you for the referral of this patient. Sincerely, Juan Galeas DPT, OC <Electronically signed by Juan Galeas DPT, RASHAD, CSCS> 02/26/18 0903 CC: Jennifer Workman DPM; Fortino Logan MD EBG Signed PROGRESS Observed: 02/06/2018 Status: COMPLETED Source: [place] 11:07 AM [facility] REPOSITORY HNO ID: [id number] Author: Mian Reyes (Krishna) Service: (none) Author Type: Physician Head Of Quality Type: Progress Notes Filed: 02/16/2018 10:48 AM Note Text: [facility] [place] PATIENT INFO: Brenda Bustamante [id number] year old PCP: Fortino Logan MD Referred by: Sherlyn Henderson ([facility]) Consult: A consultation requested by Sherlyn Henderson (Lukasz) Urinary Frequency My final recommendations communicated back to the requesting physician by way of shared Medical record. CHIEF COMPLAINT: Urinary Frequency HPI: This is a 47 year old female, who has had Urinary Frequency, which started in 2018, and involves the Urine, Bladder Patient states this moderate in severity and moderate in quality, and is happening daily Aggravating factors: No , Alleviating Factors: No . And the patient denies having Fever, Chills, Rigors, Nausea and Vomiting VOIDING SYMPTOMS: NTF: 0 Times DTF: Q 1 HOURS FOS: Average Hesitancy: No Straining: No Intermittency: No Urgency: Yes Frequency: Yes Dysuria: No Gross Hematuria: No U/A Dipstick Positive Blood - Only No Incomplete Voiding: No Double Voiding: No Post Void Dribbling: No Incontinence: No REVIEW OF SYSTEMS: General: General: Well developed, well nourished. No acute distress HEENT: Negative for sore throat, difficulty swallowing. Negative for frequent or significant headaches, changes in vision or hearing. Cardiovascular: No history of cardiovascular symtoms or problems. No history of angina, CHF, MS, cardiac surgery of stents. Respiratory: Negative for current cough, dyspnea. No hx of pneumonia in the past six weeks Gastrointestinal: No history of GERD, PUD, abd pain, difficulty swallowing, GI bleed. Renal: Negative for renal failure and No history of dialysis Musculoskeletal: Negative for joint pain or swelling, back pain or muscle pain. Skin: Negative for lesions, rash and itching. Psychological: No history of psychiatric symptoms or problems. Neurologic: No history of TIA's, stroke, [employer] tumor, impaired sensorium, hemiplegia, paraplegia or quadriplegia. No neurological symptoms or problems. Hematology/Oncology: No history of bleeding or clotting disorder. Pt is not taking anti-coagulation or platelet medications. No history of hematological symptoms or problems. Endocrine: No history of endocrinological symtoms or problems No history of DM; has not taken steroids w/in past 30 days. Negative for excessive sweating, thirst or hunger PHYSICAL EXAMINATION: General Appearance/ Constitutional: Well developed, well nourished, and in no apparent distress HEENT: Not examined Neck: Lymph Nodes: Not examined Cardiac: Normal Breast: Normal Pulmonary: Ascultation: Normal Effort: Normal GI: Soft and Non-tender Peripheral Vascular: Not examined Extremities: Clubbing absent and Edema absent Skin: Normal Neurologic: Grossly non-focal and Alert and oriented [facility] [place] Recurrent UTI Step Prevention Program: Takes 6 months before it is fully ineffect! This is not a treatment program for each time you may get a breakthrough infection in the future or while you are waiting for the prevention program to take effect over the next 6 months. Your primary care team will treat any breakthrough infections or provide refills for any of my suggestions below. The following is the recommended treatment to PREVENT recurrent urinary tract infections. 1) Topical estrogen cream for atrophic vaginitis: estrace cream fingertip application every other night 2) Probiotics: take any brand once daily: Try the brand Align but change brands every 6 months 3) A good bowel regimen to promote a BM each day or by every 3rd day 4) For break through infections over the next 6 months, use a 3 day course of Macrobid in which you use 1 pill 2 x a day for 3 days; if symptoms persists and you think you have a UTI, contact your PCP provider. 5) You may use AZO as directed as an OTC bladder pain relief when you have a breakthrough UTI; I think aspirin or Motrin/Aleve OTC is useful as well during an active infection Patient Information: Topical estrogen cream is recommended to restore the vaginal epithelium to its pre menopausal state. With a decrease in estrogen after menopause, the vaginal environment changes. This can lead to increased itchiness, dryness, and irritation. The environment becomes more basic/alkaline to a pH of 6.0 to 7.5. Normally the pH level is around 3.5 to 4.5. A different bacterial estuardo then begins to colonize the vagina which can lead to increased urinary tract infections. In order to re- establish the good bacteria estuardo, it is important to get the vaginal epithelium back to its pre menopausal state. This can be done with topical estrogen cream. A pea sized amount on the tip of the finger used every other night can do this. It takes about six months for the environment to become hospitable to good bacteria. During this time your doctor may or may not also prescribe a low dose daily antibiotic to decrease your chance of infections. Side effects of topical estrogen use include breast tenderness, vaginal bleeding or spotting, nonphysiologic discharge, vaginal irritation, burning and itching. If you have a history of deep vein thrombosis, pulmonary embolism, uterine cancer or estrogen receptor positive breast cancer, you may want to discuss this with your doctor prior to starting topical estrogen use. Histology slides of vaginal epithelium without estrogen then with estrogen supplementation. Epi stands for epithelium. Progress and Prospects in Treating Postmenopausal Vaginal atrophy. Clinical pharmacology AND Therapeutics, Vol 89 Number 1, October 2010 Probiotics also helps in re-establishing the good bacteria in the vaginal estuardo. Numerous probiotics are available over the counter to use. This can also help with establishing a good bowel regimen. Given the bowel's close proximity to both the vagina and urethra/bladder, it is important to have regular bowel movements to decrease voiding symptoms and also decrease the risk of urinary tract infections. A good bowel regimen help with decreasing colonic estuardo in the perineal area. This can be done with stool softeners available over the counter to gentle laxatives such as miralax. 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 Along with these three strategies to prevent recurrent infections, your doctor may add additional strategies tailored to your situation. We are commonly asked whether taking cranberry extract will prevent urinary tract infections. Based on the most recent [place] Review evaluating cranberries and the prevention of urinary tract infections, there is no clear evidence to suggest that cranberries effectively prevents urinary tract infections. Supplements with cranberry extracts have not been studied in a standardized fashion to suggest a benefit to using these daily. As such, we do not include using cranberry extract as part of our regimen to decreasing recurrent urinary tract infections. ADDITIONAL DATA REVIEWED: Most recent imaging Most recent labs Results for orders placed or performed in visit on 02/06/18 UA DIP, URINE (POC) Result Value Ref Range GLUCOSE UA (POCT) Negative Negative mg/dL BILIRUBIN UA (POCT) Negative Negative KETONE UA (POCT) Negative Negative mg/dL SPECIFIC GRAVITY UA (POCT) <=1.005 (A) 1.005 - 1.030 HEMOGLOBIN/BLOOD UA (POCT) Negative Negative PH UA (POCT) 5.5 4.5 - 8.0 PROTEIN UA (POCT) Negative Negative mg/dL UROBILINOGEN UA (POCT) 0.2 Normal E.U./dL NITRITE UA (POCT) Negative Negative LEUKOCYTES UA (POCT) Negative Negative COLOR UA (POCT) Yellow CLARITY UA (POCT) Clear UROLOGICAL DATA: Post Void Residual, Ultrasound: 0 ml IMPRESSION / PLAN: > History of Urinary Urgency and Frequency had been on Detrol LA some years ago and it was helpful > Rx for Detrol LA > 3 mo follow up for new medication discussion I spent approximately 40 minutes in this visit, with more than 50% of the time devoted to patient discussion, counseling, review of records and/or coordination of care. Mian Reyes MPAS, [place], ROSA ELENA SAENZ Observed: 02/06/2018 Status: COMPLETED Source: [place] 10:30 AM [facility] REPOSITORY Office Visit (UROLWS) FARABRENDA LEMON ([id number]) 1970 F Date Time Provider Department 02/06/18 10:30 AM MIAN REYES) [place]WS During your visit today, we recorded the following information about you: Pulse Blood pressure Weight Height 72/minute 120/60 59 kg 1.575 m Mian Reyes) 02/16/2018 10:48 AM Signed [facility] [place] PATIENT INFO: Brenda Bustamante [id number] year old PCP: Fortino Lgoan MD Referred by: Sherlyn Henderson ([place]) Consult: A consultation requested by Sherlyn Henderson ([place]) Urinary Frequency My final recommendations communicated back to the requesting physician by way of shared Medical record. CHIEF COMPLAINT: Urinary Frequency HPI: This is a 47 year old female, who has had Urinary Frequency, which started in 2018, and involves the Urine, Bladder Patient states this moderate in severity and moderate in quality, and is happening daily Aggravating factors: No , Alleviating Factors: No . And the patient denies having Fever, Chills, Rigors, Nausea and Vomiting VOIDING SYMPTOMS: NTF: 0 Times DTF: Q 1 HOURS FOS: Average Hesitancy: No Straining: No Intermittency: No Urgency: Yes Frequency: Yes Dysuria: No Gross Hematuria: No U/A Dipstick Positive Blood - Only No Incomplete Voiding: No Double Voiding: No Post Void Dribbling: No Incontinence: No REVIEW OF SYSTEMS: General: General: Well developed, well nourished. No acute distress HEENT: Negative for sore throat, difficulty swallowing. Negative for frequent or significant headaches, changes in vision or hearing. Cardiovascular: No history of cardiovascular symtoms or problems. No history of angina, CHF, MS, cardiac surgery of stents. Respiratory: Negative for current cough, dyspnea. No hx of pneumonia in the past six weeks Gastrointestinal: No history of GERD, PUD, abd pain, difficulty swallowing, GI bleed. Renal: Negative for renal failure and No history of dialysis Musculoskeletal: Negative for joint pain or swelling, back pain or muscle pain. Skin: Negative for lesions, rash and itching. Psychological: No history of psychiatric symptoms or problems. Neurologic: No history of TIA's, stroke, COUNTY AGENT tumor, impaired sensorium, hemiplegia, paraplegia or quadriplegia. No neurological symptoms or problems. Hematology/Oncology: No history of bleeding or clotting disorder. Pt is not taking anti-coagulation or platelet medications. No history of hematological symptoms or problems. Endocrine: No history of endocrinological symtoms or problems No history of DM; has not taken steroids w/in past 30 days. Negative for excessive sweating, thirst or hunger PHYSICAL EXAMINATION: General Appearance/ Constitutional: Well developed, well nourished, and in no apparent distress HEENT: Not examined Neck: Lymph Nodes: Not examined Cardiac: Normal Breast: Normal Pulmonary: Ascultation: Normal Effort: Normal GI: Soft and Non-tender Peripheral Vascular: Not examined Extremities: Clubbing absent and Edema absent Skin: Normal Neurologic: Grossly non-focal and Alert and oriented [facility] [place] Recurrent UTI Step Prevention Program: Takes 6 months before it is fully ineffect! This is not a treatment program for each time you may get a breakthrough infection in the future or while you are waiting for the prevention program to take effect over the next 6 months. Your primary care team will treat any breakthrough infections or provide refills for any of my suggestions below. The following is the recommended treatment to PREVENT recurrent urinary tract infections. 1) Topical estrogen cream for atrophic vaginitis: estrace cream fingertip application every other night 2) Probiotics: take any brand once daily: Try the brand Align but change brands every 6 months 3) A good bowel regimen to promote a BM each day or by every 3rd day 4) For break through infections over the next 6 months, use a 3 day course of Macrobid in which you use 1 pill 2 x a day for 3 days; if symptoms persists and you think you have a UTI, contact your PCP provider. 5) You may use AZO as directed as an OTC bladder pain relief when you have a breakthrough UTI; I think aspirin or Motrin/Aleve OTC is useful as well during an active infection Patient Information: Topical estrogen cream is recommended to restore the vaginal epithelium to its pre menopausal state. With a decrease in estrogen after menopause, the vaginal environment changes. This can lead to increased itchiness, dryness, and irritation. The environment becomes more basic/alkaline to a pH of 6.0 to 7.5. Normally the pH level is around 3.5 to 4.5. A different bacterial estuardo then begins to colonize the vagina which can lead to increased urinary tract infections. In order to re-establish the good bacteria estuardo, it is important to get the vaginal epithelium back to its pre menopausal state. This can be done with topical estrogen cream. A pea sized amount on the tip of the finger used every other night can do this. It takes about six months for the environment to become hospitable to good bacteria. During this time your doctor may or may not also prescribe a low dose daily antibiotic to decrease your chance of infections. Side effects of topical estrogen use include breast tenderness, vaginal bleeding or spotting, nonphysiologic discharge, vaginal irritation, burning and itching. If you have a history of deep vein thrombosis, pulmonary embolism, uterine cancer or estrogen receptor positive breast cancer, you may want to discuss this with your doctor prior to starting topical estrogen use. Histology slides of vaginal epithelium without estrogen then with estrogen supplementation. Epi stands for epithelium. Progress and Prospects in Treating Postmenopausal Vaginal atrophy. Clinical pharmacology AND Therapeutics, Vol 89 Number 1, October 2010 Probiotics also helps in re-establishing the good bacteria in the vaginal estuardo. Numerous probiotics are available over the counter to use. This can also help with establishing a good bowel regimen. Given the bowel's close proximity to both the vagina and urethra/bladder, it is important to have regular bowel movements to decrease voiding symptoms and also decrease the risk of urinary tract infections. A good bowel regimen help with decreasing colonic estuardo in the perineal area. This can be done with stool softeners available over the counter to gentle laxatives such as miralax. 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 Along with these three strategies to prevent recurrent infections, your doctor may add additional strategies tailored to your situation. We are commonly asked whether taking cranberry extract will prevent urinary tract infections. Based on the most recent [place] Review evaluating cranberries and the prevention of urinary tract infections, there is no clear evidence to suggest that cranberries effectively prevents urinary tract infections. Supplements with cranberry extracts have not been studied in a standardized fashion to suggest a benefit to using these daily. As such, we do not include using cranberry extract as part of our regimen to decreasing recurrent urinary tract infections. ADDITIONAL DATA REVIEWED: Most recent imaging Most recent labs Results for orders placed or performed in visit on 02/06/18 UA DIP, URINE (POC) Result Value Ref Range GLUCOSE UA (POCT) Negative Negative mg/dL BILIRUBIN UA (POCT) Negative Negative KETONE UA (POCT) Negative Negative mg/dL SPECIFIC GRAVITY UA (POCT) <=1.005 (A) 1.005 - 1.030 HEMOGLOBIN/BLOOD UA (POCT) Negative Negative PH UA (POCT) 5.5 4.5 - 8.0 PROTEIN UA (POCT) Negative Negative mg/dL UROBILINOGEN UA (POCT) 0.2 Normal E.U./dL NITRITE UA (POCT) Negative Negative LEUKOCYTES UA (POCT) Negative Negative COLOR UA (POCT) Yellow CLARITY UA (POCT) Clear UROLOGICAL DATA: Post Void Residual, Ultrasound: 0 ml IMPRESSION / PLAN: > History of Urinary Urgency and Frequency had been on Detrol LA some years ago and it was helpful > Rx for Detrol LA > 3 mo follow up for new medication discussion I spent approximately 40 minutes in this visit, with more than 50% of the time devoted to patient discussion, counseling, review of records and/or coordination of care. Mian Reyes MPAS, [place], PA-C Referring Provider: SHERLYN HENDERSON ([facility]) [[id number]] Allergies As of Date: 02/06/2018 Noted Allergy Reaction BACTRIM (SULFAMETHOXAZOLE) 08/12/2013 9 - Itching MEDROL DOSE PACK (METHYLPREDNISOL*01/31/2017 7 - Swelling Comments: Swelling of throat MORPHINE 08/12/2013 9 - Itching Date Reviewed: 02/06/2018 Reviewed by: Afua Aragon LPN - Fully Assessed Reason for Visit: Urinary Frequency [1086] Primary Visit Diagnosis:Urinary frequency [R35.0] Order(s):UA DIP, URINE (POC) [5480426] Order #: [id number] UA DIP, URINE (POC) [5809112] Order #: [id number] #:[id number] Prescriptions as of 02/06/2018 Sig: X TOLTERODINE 2 MG TABLET Take 1 tablet by mouth twice * FLUTICASONE 50 MCG/ACTUATION * Use 2 Sprays in each nostril * TYLENOL 8 HOUR ORAL Take 2 Tablespoonsful by mout* ALBUTEROL SULFATE 2.5 MG/3 ML* Use 3 mL via nebulizer every * LEVOTHYROXINE 88 MCG TABLET Take one tab by mouth daily M* HYDROXYZINE HCL 25 MG TABLET Take 1-2 tabs by mouth prior * FLUTICASONE-SALMETEROL 230 MC* Inhale 2 Puffs as instructed * CHOLECALCIFEROL (VITAMIN D3) * Take 2 capsules by mouth once* X TIOTROPIUM BROMIDE 18 MCG CAP* INHALE THE CONTENTS OF 1 CAPS* POLYETHYLENE GLYCOL 3350 17 G* Take 17 g by mouth once daily* ALBUTEROL SULFATE HFA 90 MCG/* USE 2 INHALATIONS EVERY 6 NURA* Problem List As Of Date 02/06/2018 Noted Resolved Post-menopausal [Z78.0] Priority: C COPD with asthma (HCC) [J44.9] Priority: A Vitamin D deficiency [E55.9] Priority: B More... More... Smoker [F17.200] INVALID FOR* Priority: C Allergic rhinitis [J30.9] INVALID FOR* Priority: B Insomnia [G47.00] INVALID FOR* Priority: B Acquired hypothyroidism [E03.9] INVALID FOR* Priority: A More... More... Constipation [K59.00] INVALID FOR* Priority: C Encounter for gynecological examination without*INVALID FOR* Priority: E More... Well adult exam [Z00.00] INVALID FOR* Priority: E More... Gastro-esophageal reflux disease with esophagit*INVALID FOR* Priority: A More... 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 Disposition: Return in about 3 months (around 05/08/2018). Follow-up and Disposition History Recorded Questionnaire: AUA QUESTIONNAIRE TIMES IN THE PAST MONTH YOU HAD A FEELING OF NOT EMPTYING BLADDER? -> 5 TIMES IN PAST MONTH NEED TO URINATE AGAIN WITHIN 2 HRS OF LAST EMPTY? -> 2 TIMES IN PAST MONTH YOU HAVE STOPPED AND STARTED URINE FLOW? -> 2 TIMES IN THE PAST MONTH YOU FOUND IT DIFFICULT TO POSTPONE URINATING? -> 5 TIMES IN THE PAST MONTH YOU HAVE HAD A WEAK URINARY STREAM? -> 5 TIMES IN PAST MONTH YOU HAVE HAD TO PUSH OR STRAIN TO URINATE? -> 0 TIMES IN PAST MONTH YOU GET UP TO URINATE FROM SLEEP UNTIL AWAKE? -> 3 HOW WOULD YOU FEEL IF YOU HAD TO LIVE WITH YOUR URINARY CONDITION IT IS NOW? * WHAT IT THE TOTAL AUA SCORE? -> 22 Encounter Status:Closed by MIAN REYES PA-C on 02/16/18 THYROID STIM HORMONE Collected: 02/04/2018 Status: F Source: [place] (T[facility]) 5:04 PM [facility] REPOSITORY Order Comment: Has Patient had X-rays with Contrast this admission? N TYPE CODE TESTS RESULT OUT OF RANGE REFERENCE UNITS LAB L501.9520 0.358-3.74 uIU/mL Normal TSH 2.14 Performed By: #### L501.9520, L506.0400 #### [facility] [address] [place], [place], [address] T4 FREE DIRECT Collected: 02/04/2018 Status: F Source: [place] 5:04 PM [facility] REPOSITORY Order Comment: Has Patient had X-rays with Contrast this admission? N TYPE CODE TESTS RESULT OUT OF RANGE REFERENCE UNITS LAB L506.0400 0.76-1.46 ng/dL Normal T4 FREE 1.08 DIRECT Performed By: #### [id number], L506.0400 #### [facility] [address] [place], [address] PROGRESS Observed: 02/04/2018 Status: COMPLETED Source: [place] 4:03 PM [facility] REPOSITORY HNO ID: [id number] Author: Sherlyn Wells) Santiago Service: (none) Author Type: Nurse Practitioner Type: Progress Notes Filed: 02/04/2018 4:44 PM Note Text: Brenda Villalobos is a 47 year old female who presents for problem visit Urinary issues for 2 week(s). HPI: pt states that 2 weeks ago she started to notice pressure in the bladder area and it is daily, now she is have low back pain. Denies any dysuria, hematuria, fevers, or recent illness. 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 Chow - Vitamin D deficiency PAST SURGICAL HISTORY Procedure Laterality Date - EGD W/O BRSH SPECIMEN W/BX 05/27/2016 - OFFICE LEEP 2001 - TOTAL ABDOM HYSTERECTOMY 2003 vivian bso FAMILY HISTORY Problem Relation Age of Onset - COPD Mother - Heart Mother - Thyroid Mother - Hypertension Mother - Kidney Disease Mother Kidney failure - Asthma Mother - Breast Cancer Mother - Diabetes Son Type 1 - Asthma Son Social History Marital status: Spouse name: Years of education: Number of children: 2 Occupational History Occupation Employer Comment [employer] Social History Main Topics Smoking status: Current Every Day Smoker Packs/day: 0.50 Years: 30.00 Types: Cigarettes Start date: 1981 Smokeless status: Never Used Comment: Both parents smoked in childhood home. 1st AM cigarette within 5 minutes of waking up. 01/30/16. TO Alcohol use: No Drug use: No Sexual activity: Yes Partners with: Male control/protection: Surgical Comment: Pt has had a Hysterectomy Current Outpatient Prescriptions: cyclobenzaprine (FLEXERIL) 10 mg tablet Take 1 tablet by mouth three times daily as needed for Muscle Spasm. fluticasone (FLONASE) 50 mcg/actuation nasal spray Use 2 Sprays in each nostril once daily. Rinse mouth after use. ACETAMINOPHEN (TYLENOL 8 HOUR ORAL) Take 2 Tablespoonsful by mouth as needed. Rwcnovy-Tmvbrxogjbc-AA-Acetam (NYQUIL D) 6.07-83-10-500 mg/15 mL liqd Take 2 Tablespoonsful by mouth as needed. ibuprofen (MOTRIN IB) 200 mg tablet Take 400 mg by mouth every 6 hours as needed. albuterol (PROVENTIL) 2.5 mg /3 mL (0.083 %) nebulizer solution Use 3 mL via nebulizer every 6 hours as needed for Wheezing/Shortness of Breath. Use over 5-15minutes. tiotropium (SPIRIVA WITH HANDIHALER) 18 mcg inhalation capsule INHALE THE CONTENTS OF 1 CAPSULE DAILY INSTRUCTED. USE WITH HANDIHALER levothyroxine (SYNTHROID) 88 mcg tablet Take one tab by mouth daily Fri-Friday. None on Friday hydrOXYzine HCl (ATARAX) 25 mg tablet Take 1-2 tabs by mouth prior to bed as needed for sleep. fluticasone-salmeterol HFA (ADVAIR HFA) 230-21 mcg/actuation inhaler Inhale 2 Puffs as instructed twice daily. Cholecalciferol, Vitamin D3, 1,000 unit cap Take 2 capsules by mouth once daily. polyethylene glycol 3350 (MIRALAX, GLYCOLAX) 17 gram/dose powder Take 17 g by mouth once daily. Take one (1) capful in 8oz of liquid each day. Dexlansoprazole (DEXILANT) 30 mg CpDM Take 30 mg by mouth once daily. albuterol HFA (PROAIR HFA) 90 mcg/actuation inhaler USE 2 INHALATIONS EVERY 6 HOURS INSTRUCTED NEEDED sucralfate (CARAFATE) 1 gram tablet Take 1 tablet by mouth three times daily. No current facility-administered medications for this visit. Allergies As of Date: 02/04/2018 Allergen Noted Reaction BACTRIM [SULFAMETHOXAZOLE] 08/12/2013 Itching MEDROL DOSE PACK [METHYLPREDNISOL*01/31/2017 Swelling MORPHINE 08/12/2013 Itching Fully Assessed 12/24/2017 REVIEW OF SYSTEMS Abdomen: No bloating, early satiety, indigestion, or increased flatulence. No abdominal pain, nausea, vomiting, diarrhea, or constipation. Low pelvic pain Bladder: No dysuria, gross hematuria, urinary frequency, urinary urgency, or incontinence. Pressure able to empty bladder Expanded ROS: N/A Allergies and current medication updated:Yes EXAM: There were no vitals taken for this visit. GENERAL: pleasant, female in no apparent distress CHEST: Normal inspiratory effort ABDOMEN: soft, no masses and Moderate tenderness in suprapubic area PELVIC: external genitalia normal, normal Bartholin's glands, urethra, Hominy's glands, no vulvar lesions, physiologic discharge present, normal appearing perineal body and perianal region, cervix surgically absent, cystocele 1st degree BIMANUAL: non-tender, uterus surgically absent and Moderate tenderness NEURO: alert and oriented x3,exam grossly non-focal EXTREMITIES: normal Negative CVA tenderness ASSESSMENT AND PLAN: No diagnosis found. Urine culture sent Referred to urology Follow up as needed Sherlyn Henderson APRN.CNP CNOV Observed: 02/04/2018 Status: COMPLETED Source: [place] 4:00 PM [facility] REPOSITORY Office Visit (WOOB) FARABRENDA LEMON ([id number]) 1970 F Date Time Provider Department 02/04/18 4:00 PM SHERLYN HENDERSON ([facility]) [place]OO[facility] During your visit today, we recorded the following information about you: Blood pressure Weight 106/70 60.3 kg Sherlyn Henderson APRN.CNP 02/04/2018 4:44 PM Signed Brenda Dianna Griselda is a 47 year old female who presents for problem visit Urinary issues for 2 week(s). HPI: pt states that 2 weeks ago she started to notice pressure in the bladder area and it is daily, now she is have low back pain. Denies any dysuria, hematuria, fevers, or recent illness. 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 Chow - Vitamin D deficiency PAST SURGICAL HISTORY Procedure Laterality Date - EGD W/O [facility] SPECIMEN W/BX 05/27/2016 - OFFICE LEEP 2001 - TOTAL ABDOM HYSTERECTOMY 2002 vivian bso FAMILY HISTORY Problem Relation Age of Onset - COPD Mother - Heart Mother - Thyroid Mother - Hypertension Mother - Kidney Disease Mother Kidney failure - Asthma Mother - Breast Cancer Mother - Diabetes Son Type 1 - Asthma Son Social History Marital status: Spouse name: Years of education: Number of children: 2 Occupational History Occupation Employer Comment [employer] Social History Main Topics Smoking status: Current Every Day Smoker Packs/day: 0.50 Years: 30.00 Types: Cigarettes Start date: 1981 Smokeless status: Never Used Comment: Both parents smoked in childhood home. 1st AM cigarette within 5 minutes of waking up. 01/30/16. TO Alcohol use: No Drug use: No Sexual activity: Yes Partners with: Male control/protection: Surgical Comment: Pt has had a Hysterectomy Current Outpatient Prescriptions: cyclobenzaprine (FLEXERIL) 10 mg tablet Take 1 tablet by mouth three times daily as needed for Muscle Spasm. fluticasone (FLONASE) 50 mcg/actuation nasal spray Use 2 Sprays in each nostril once daily. Rinse mouth after use. ACETAMINOPHEN (TYLENOL 8 HOUR ORAL) Take 2 Tablespoonsful by mouth as needed. Womqdvz-Kospcihpolx-WP-Acetam (NYQUIL D) 6.86-64-65-500 mg/15 mL liqd Take 2 Tablespoonsful by mouth as needed. ibuprofen (MOTRIN IB) 200 mg tablet Take 400 mg by mouth every 6 hours as needed. albuterol (PROVENTIL) 2.5 mg /3 mL (0.083 %) nebulizer solution Use 3 mL via nebulizer every 6 hours as needed for Wheezing/Shortness of Breath. Use over 5-15minutes. tiotropium (SPIRIVA WITH HANDIHALER) 18 mcg inhalation capsule INHALE THE CONTENTS OF 1 CAPSULE DAILY INSTRUCTED. USE WITH HANDIHALER levothyroxine (SYNTHROID) 88 mcg tablet Take one tab by mouth daily Fri-Friday. None on Friday hydrOXYzine HCl (ATARAX) 25 mg tablet Take 1-2 tabs by mouth prior to bed as needed for sleep. fluticasone-salmeterol HFA (ADVAIR HFA) 230-21 mcg/actuation inhaler Inhale 2 Puffs as instructed twice daily. Cholecalciferol, Vitamin D3, 1,000 unit cap Take 2 capsules by mouth once daily. polyethylene glycol 3350 (MIRALAX, GLYCOLAX) 17 gram/dose powder Take 17 g by mouth once daily. Take one (1) capful in 8oz of liquid each day. Dexlansoprazole (DEXILANT) 30 mg CpDM Take 30 mg by mouth once daily. albuterol HFA (PROAIR HFA) 90 mcg/actuation inhaler USE 2 INHALATIONS EVERY 6 HOURS INSTRUCTED NEEDED sucralfate (CARAFATE) 1 gram tablet Take 1 tablet by mouth three times daily. No current facility-administered medications for this visit. Allergies As of Date: 02/04/2018 Allergen Noted Reaction BACTRIM [SULFAMETHOXAZOLE] 08/12/2013 Itching MEDROL DOSE PACK [METHYLPREDNISOL*01/31/2017 Swelling MORPHINE 08/12/2013 Itching Fully Assessed 12/24/2017 REVIEW OF SYSTEMS Abdomen: No bloating, early satiety, indigestion, or increased flatulence. No abdominal pain, nausea, vomiting, diarrhea, or constipation. Low pelvic pain Bladder: No dysuria, gross hematuria, urinary frequency, urinary urgency, or incontinence. Pressure able to empty bladder Expanded ROS: N/A Allergies and current medication updated:Yes EXAM: There were no vitals taken for this visit. GENERAL: pleasant, female in no apparent distress CHEST: Normal inspiratory effort ABDOMEN: soft, no masses and Moderate tenderness in suprapubic area PELVIC: external genitalia normal, normal Bartholin's glands, urethra, Hominy's glands, no vulvar lesions, physiologic discharge present, normal appearing perineal body and perianal region, cervix surgically absent, cystocele 1st degree BIMANUAL: non-tender, uterus surgically absent and Moderate tenderness NEURO: alert and oriented x3,exam grossly non-focal EXTREMITIES: normal Negative CVA tenderness ASSESSMENT AND PLAN: No diagnosis found. Urine culture sent Referred to urology Follow up as needed Sherlyn Henderson APRN.APARTMENT LEASING AGENT Referring Provider: SELF [[id number]] Allergies As of Date: 02/04/2018 Noted Allergy Reaction BACTRIM (SULFAMETHOXAZOLE) 08/12/2013 9 - Itching MEDROL DOSE PACK (METHYLPREDNISOL*01/31/2017 7 - Swelling Comments: Swelling of throat MORPHINE 08/12/2013 9 - Itching Date Reviewed: 02/04/2018 Reviewed by: Sherlyn Wells) Santiago - Fully Assessed Reason for Visit: Possible Bladder Infection [Other] Primary Visit Diagnosis:Pelvic pressure in female [R10.2] Order(s):UA DIP B/O [[id number]] Order #: [id number] CONSULT TO UROLOGY [9041] Order #: [id number]: 1 URINE CULTURE [SQURCUL] Order #: [id number] Prescriptions as of 02/04/2018 Sig: FLUTICASONE 50 MCG/ACTUATION * Use 2 Sprays in each nostril * TYLENOL 8 HOUR ORAL Take 2 Tablespoonsful by mout* ALBUTEROL SULFATE 2.5 MG/3 ML* Use 3 mL via nebulizer every * TIOTROPIUM BROMIDE 18 MCG CAP* INHALE THE CONTENTS OF 1 CAPS* LEVOTHYROXINE 88 MCG TABLET Take one tab by mouth daily M* HYDROXYZINE HCL 25 MG TABLET Take 1-2 tabs by mouth prior * FLUTICASONE-SALMETEROL 230 MC* Inhale 2 Puffs as instructed * CHOLECALCIFEROL (VITAMIN D3) * Take 2 capsules by mouth once* POLYETHYLENE GLYCOL 3350 17 G* Take 17 g by mouth once daily* ALBUTEROL SULFATE HFA 90 MCG/* USE 2 INHALATIONS EVERY 6 NURA* Medication notes this encounter CYCLOBENZAPRINE 10 MG TABLET >> Jamilah Ballesteros Ma 02/04/2018 4:11 PM >> JAMILAH BALLESTEROS MA FriFeb 04, 2018 4:11 PM Not taking SUCRALFATE 1 GRAM TABLET >> Jamilah Ballesteros Ma 02/04/2018 4:11 PM >> JAMILAH BALLESTEROS MA FriFeb 04, 2018 4:11 PM Not taking Problem List As Of Date 02/04/2018 Noted Resolved Post-menopausal [Z78.0] Priority: C COPD with asthma (HCC) [J44.9] Priority: A Vitamin D deficiency [E55.9] Priority: B More... More... Smoker [F17.200] INVALID FOR* Priority: C Allergic rhinitis [J30.9] INVALID FOR* Priority: B Insomnia [G47.00] INVALID FOR* Priority: B Acquired hypothyroidism [E03.9] INVALID FOR* Priority: A More... More... Constipation [K59.00] INVALID FOR* Priority: C Encounter for gynecological examination without*INVALID FOR* Priority: E More... Well adult exam [Z00.00] INVALID FOR* Priority: E More... Gastro-esophageal reflux disease with esophagit*INVALID FOR* Priority: A More... 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 Disc: Reason for discontinue is not on file. Dexlansoprazole (DEXILANT) 30 mg CpDM 90 c* 1 06/03/2017 02/04/2018 Class: Med Update Route: ORAL Sig: Take 30 mg by mouth once daily. Disc: Reason for discontinue is not on file. Frzkmku-Tixgswmawkq-EM-Acetam (NYQUI* 02/04/2018 Class: Historical Med Route: ORAL Sig: Take 2 Tablespoonsful by mouth as needed. Disc: Reason for discontinue is not on file. ibuprofen (MOTRIN IB) 200 mg tablet 02/04/2018 Class: Historical Med Route: ORAL Sig: Take 400 mg by mouth every 6 hours as needed. Disc: Reason for discontinue is not on file. sucralfate (CARAFATE) 1 gram tablet 270 * 1 04/18/2017 02/04/2018 Class: [facility] Route: ORAL Sig: Take 1 tablet by mouth three times daily. Disc: Reason for discontinue is not on file. Encounter Status:Closed by SHERLYN HENDERSON on 02/04/18 Observed: 02/04/2018 Status: F Source: [place] URINE CULTURE 4:18 AM [facility] REPOSITORY Sp. Request/Comment: - Specimen received in preservative Culture Result - No growth (<1,000 CFU/ml) Performed By: #### URCUL #### [facility] [address] [place], [place] [address] PROGRESS Observed: 12/24/2017 Status: COMPLETED Source: [place] 3:25 PM [facility] REPOSITORY HNO ID: [id number] Author: Wilmer Barrera Service: (none) Author Type: Nurse Practitioner Type: Progress Notes Filed: 12/24/2017 3:50 PM Note Text: HPI: Brenda Villalobos is a 47 year old female. Patient presents with: left shoulder pain Patient is a 47 year old female presenting with back pain and neck pain. Back Pain This is a new problem. The current episode started more than 1 week ago (x1 month). The problem occurs constantly. The problem has not changed since onset.The pain is associated with no known injury. The pain is present in the thoracic spine. The quality of the pain is described as aching. The pain is at a severity of 3/10. The pain is mild. Pertinent negatives include no chest pain, no fever, no numbness, no headaches, no abdominal pain and no weakness. Neck Pain The problem has been unchanged. The pain is associated with nothing. Quality: sharp. The pain is at a severity of 8/10. The pain is severe. The pain is same all the time. Stiffness is present in the morning. Pertinent negatives include no chest pain, fever, headaches, numbness or weakness. She has tried NSAIDs and chiropractic manipulation for the symptoms. The treatment provided mild relief. Patient saw chiropractor 2 weeks ago with no improvement in symptoms. She is not sure if neck pain/stiffness is related to how she may be sleeping. Review of Systems Constitutional: Negative for chills, fatigue and fever. HENT: Negative for congestion, postnasal drip, rhinorrhea and sinus pressure. Respiratory: Negative for cough and shortness of breath. Cardiovascular: Negative for chest pain and palpitations. Gastrointestinal: Negative for abdominal pain. Musculoskeletal: Positive for back pain and neck pain. Skin: Negative for color change and rash. Neurological: Negative for dizziness, weakness, light-headedness, numbness and headaches. 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 Chow - Vitamin D deficiency PAST SURGICAL HISTORY Procedure Laterality Date - [facility]2016 - OFFICE LEEP 2001 - TOTAL ABDOM HYSTERECTOMY 2002 viv[facility] bso ALLERGIES Bactrim [Sulfamethoxazole]; Medrol Dose Pack [Methylprednisolone]; Morphine MEDICATIONS fluticasone (FLONASE) 50 mcg/actuation nasal spray Use 2 Sprays in each nostril once daily. Rinse mouth after use. albuterol (PROVENTIL) 2.5 mg /3 mL (0.083 %) nebulizer solution Use 3 mL via nebulizer every 6 hours as needed for Wheezing/Shortness of Breath. Use over 5-15minutes. tiotropium (SPIRIVA WITH HANDIHALER) 18 mcg inhalation capsule INHALE THE CONTENTS OF 1 CAPSULE DAILY INSTRUCTED. USE WITH HANDIHALER levothyroxine (SYNTHROID) 88 mcg tablet Take one tab by mouth daily Fri-Friday. None on Friday hydrOXYzine HCl (ATARAX) 25 mg tablet Take 1-2 tabs by mouth prior to bed as needed for sleep. fluticasone-salmeterol HFA (ADVAIR HFA) 230-21 mcg/actuation inhaler Inhale 2 Puffs as instructed twice daily. polyethylene glycol 3350 (MIRALAX, GLYCOLAX) 17 gram/dose powder Take 17 g by mouth once daily. Take one (1) capful in 8oz of liquid each day. albuterol HFA (PROAIR HFA) 90 mcg/actuation inhaler USE 2 INHALATIONS EVERY 6 HOURS INSTRUCTED NEEDED sucralfate (CARAFATE) 1 gram tablet Take 1 tablet by mouth three times daily. ACETAMINOPHEN (TYLENOL 8 HOUR ORAL) Take 2 Tablespoonsful by mouth as needed. Geeqlcf-Mhxqupjwqzx-TE-Acetam (NYQUIL D) 6.11-39-71-500 mg/15 mL liqd Take 2 Tablespoonsful by mouth as needed. ibuprofen (MOTRIN IB) 200 mg tablet Take 400 mg by mouth every 6 hours as needed. Cholecalciferol, Vitamin D3, 1,000 unit cap Take 2 capsules by mouth once daily. Dexlansoprazole (DEXILANT) 30 mg CpDM Take 30 mg by mouth once daily. FAMILY HISTORY Problem Relation Age of Onset - COPD Mother - Heart Mother - Thyroid Mother - Hypertension Mother - Kidney Disease Mother Kidney failure - Asthma Mother - Breast Cancer Mother - Diabetes Son Type 1 - Asthma Son Social History Substance Use Topics - Smoking status: Current Every Day Smoker Packs/day: 0.50 Years: 30.00 Types: Cigarettes Start date: 1981 - Smokeless tobacco: Never Used Comment: Both parents smoked in childhood home. 1st AM cigarette within 5 minutes of waking up. 01/30/16. TO - Alcohol use No OBJECTIVE: BP 112/80 Pulse 88 Temp 37.2 ?C (99 ?F) (Left Tympanic) Resp 14 Wt 63.5 kg (140 lb) BMI 24.8 kg/m2 EXAM: Physical Exam Constitutional: She is oriented to person, place, and time. She appears well-developed and well-nourished. HENT: Head: Normocephalic. Neck: Muscular tenderness present. No rigidity. Decreased range of motion (due to pain) present. No edema and no erythema present. Cardiovascular: Normal rate. Pulmonary/Chest: Effort normal. Musculoskeletal: She exhibits tenderness. Right shoulder: She exhibits tenderness. Arms: Neurological: She is alert and oriented to person, place, and time. Skin: Skin is warm and dry. No rash noted. No erythema. Psychiatric: She has a normal mood and affect. Her behavior is normal. ASSESSMENT/PLAN: 1. Acute strain of neck muscle, initial encounter - ICD9: 847.0, ICD10: S16.1XXA (primary diagnosis) - Printed information provided - Activity modification advised - Printed information on stretching exercises - Ice for localized tenderness - Warm moist heat for 20 min three times a day - NSAIDS (OTC Ibuprofen, Naproxen, etc) - Muscle relaxant- see orders - Follow up in with primary care provider in 2 weeks or sooner if symptoms persist or worsen - CYCLOBENZAPRINE 10 MG TABLET 2. Acute left-sided thoracic back pain - ICD9: 724.1, ICD10: M54.6 - Ice for localized tenderness - Warm moist heat for 20 min three times a day - NSAIDS (OTC Ibuprofen, Naproxen, etc) - Muscle relaxant- see orders - Follow up in with primary care provider in 2 weeks or sooner if symptoms persist or worsen The patient is instructed to return or seek emergency treatment if symptoms become worse or with any acute change in condition. The patient verbalizes understanding and is in agreement with plan of care. Wilmer Barrera CNP CNOV Observed: 12/24/2017 Status: COMPLETED Source: [place] 3:15 PM [facility] REPOSITORY Office Visit ([facility]) BRENDA VILLALOBOS ([id number]) 1970 F Date Time Provider Department 12/24/17 3:15 PM WILMER BARRERA (LUKASZ) [facility] During your visit today, we recorded the following information about you: Temperature Pulse Respiration Blood pressure 99 degrees 88/minute 14/minute 112/80 Weight 63.5 kg Wilmer Barrera CNP 12/24/2017 3:50 PM Signed HPI: Brenda Villalobos is a 47 year old female. Patient presents with: left shoulder pain Patient is a 47 year old female presenting with back pain and neck pain. Back Pain This is a new problem. The current episode started more than 1 week ago (x1 month). The problem occurs constantly. The problem has not changed since onset.The pain is associated with no known injury. The pain is present in the thoracic spine. The quality of the pain is described as aching. The pain is at a severity of 3/10. The pain is mild. Pertinent negatives include no chest pain, no fever, no numbness, no headaches, no abdominal pain and no weakness. Neck Pain The problem has been unchanged. The pain is associated with nothing. Quality: sharp. The pain is at a severity of 8/10. The pain is severe. The pain is same all the time. Stiffness is present in the morning. Pertinent negatives include no chest pain, fever, headaches, numbness or weakness. She has tried NSAIDs and chiropractic manipulation for the symptoms. The treatment provided mild relief. Patient saw chiropractor 2 weeks ago with no improvement in symptoms. She is not sure if neck pain/stiffness is related to how she may be sleeping. Review of Systems Constitutional: Negative for chills, fatigue and fever. HENT: Negative for congestion, postnasal drip, rhinorrhea and sinus pressure. Respiratory: Negative for cough and shortness of breath. Cardiovascular: Negative for chest pain and palpitations. Gastrointestinal: Negative for abdominal pain. Musculoskeletal: Positive for back pain and neck pain. Skin: Negative for color change and rash. Neurological: Negative for dizziness, weakness, light-headedness, numbness and headaches. 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 Chow - Vitamin D deficiency PAST SURGICAL HISTORY Procedure Laterality Date - EGD W/O [facility] SPECIMEN W/BX 05/27/2016 - OFFICE LEEP 2001 - TOTAL ABDOM HYSTERECTOMY 2002 [facility] bso ALLERGIES Bactrim [Sulfamethoxazole]; Medrol Dose Pack [Methylprednisolone]; Morphine MEDICATIONS fluticasone (FLONASE) 50 mcg/actuation nasal spray Use 2 Sprays in each nostril once daily. Rinse mouth after use. albuterol (PROVENTIL) 2.5 mg /3 mL (0.083 %) nebulizer solution Use 3 mL via nebulizer every 6 hours as needed for Wheezing/Shortness of Breath. Use over 5-15minutes. tiotropium (SPIRIVA WITH HANDIHALER) 18 mcg inhalation capsule INHALE THE CONTENTS OF 1 CAPSULE DAILY INSTRUCTED. USE WITH HANDIHALER levothyroxine (SYNTHROID) 88 mcg tablet Take one tab by mouth daily Fri-Friday. None on Friday hydrOXYzine HCl (ATARAX) 25 mg tablet Take 1-2 tabs by mouth prior to bed as needed for sleep. fluticasone-salmeterol HFA (ADVAIR HFA) 230-21 mcg/actuation inhaler Inhale 2 Puffs as instructed twice daily. polyethylene glycol 3350 (MIRALAX, GLYCOLAX) 17 gram/dose powder Take 17 g by mouth once daily. Take one (1) capful in 8oz of liquid each day. albuterol HFA (PROAIR HFA) 90 mcg/actuation inhaler USE 2 INHALATIONS EVERY 6 HOURS INSTRUCTED NEEDED sucralfate (CARAFATE) 1 gram tablet Take 1 tablet by mouth three times daily. ACETAMINOPHEN (TYLENOL 8 HOUR ORAL) Take 2 Tablespoonsful by mouth as needed. Madtkgo-Oxynmjfssgz-SO-Acetam (NYQUIL D) 6.86-08-70-500 mg/15 mL liqd Take 2 Tablespoonsful by mouth as needed. ibuprofen (MOTRIN IB) 200 mg tablet Take 400 mg by mouth every 6 hours as needed. Cholecalciferol, Vitamin D3, 1,000 unit cap Take 2 capsules by mouth once daily. Dexlansoprazole (DEXILANT) 30 mg CpDM Take 30 mg by mouth once daily. FAMILY HISTORY Problem Relation Age of Onset - COPD Mother - Heart Mother - Thyroid Mother - Hypertension Mother - Kidney Disease Mother Kidney failure - Asthma Mother - Breast Cancer Mother - Diabetes Son Type 1 - Asthma Son Social History Substance Use Topics - Smoking status: Current Every Day Smoker Packs/day: 0.50 Years: 30.00 Types: Cigarettes Start date: 1981 - Smokeless tobacco: Never Used Comment: Both parents smoked in childhood home. 1st AM cigarette within 5 minutes of waking up. 01/30/16. TO - Alcohol use No OBJECTIVE: BP 112/80 Pulse 88 Temp 37.2 ?C (99 ?F) (Left Tympanic) Resp 14 Wt 63.5 kg (140 lb) BMI 24.8 kg/m2 EXAM: Physical Exam Constitutional: She is oriented to person, place, and time. She appears well-developed and well-nourished. HENT: Head: Normocephalic. Neck: Muscular tenderness present. No rigidity. Decreased range of motion (due to pain) present. No edema and no erythema present. Cardiovascular: Normal rate. Pulmonary/Chest: Effort normal. Musculoskeletal: She exhibits tenderness. Right shoulder: She exhibits tenderness. Arms: Neurological: She is alert and oriented to person, place, and time. Skin: Skin is warm and dry. No rash noted. No erythema. Psychiatric: She has a normal mood and affect. Her behavior is normal. ASSESSMENT/PLAN: 1. Acute strain of neck muscle, initial encounter - ICD9: 847.0, ICD10: S16.1XXA (primary diagnosis) - Printed information provided - Activity modification advised - Printed information on stretching exercises - Ice for localized tenderness - Warm moist heat for 20 min three times a day - NSAIDS (OTC Ibuprofen, Naproxen, etc) - Muscle relaxant- see orders - Follow up in with primary care provider in 2 weeks or sooner if symptoms persist or worsen - CYCLOBENZAPRINE 10 MG TABLET 2. Acute left-sided thoracic back pain - ICD9: 724.1, ICD10: M54.6 - Ice for localized tenderness - Warm moist heat for 20 min three times a day - NSAIDS (OTC Ibuprofen, Naproxen, etc) - Muscle relaxant- see orders - Follow up in with primary care provider in 2 weeks or sooner if symptoms persist or worsen The patient is instructed to return or seek emergency treatment if symptoms become worse or with any acute change in condition. The patient verbalizes understanding and is in agreement with plan of care. LUKASZ John CNP 12/24/2017 3:37 PM Signed NECK STRAIN GENERAL INFORMATION: Neck strains are caused when the muscles of the neck are stretched and pulled. This can happen in a car accident or when wrestling, but can also occur with minor activity. Sometimes people even wake up from sleep with a neck strain! INSTRUCTIONS: 1. Reduce your activity until the pain is improved; rest in bed if needed. 2. If you can stand it, applying ice for the first 24 - 48 hours may keep the swelling down. Place ice in a plastic bag and apply over a towel for 10 minutes at a time. Some people find this too uncomfortable, and prefer warm compresses. In this case, apply a warm heating pad or warm, moist towels for 10 minutes at a time. This can be continued after the initial 48 hours as well to speed healing and for comfort. 3. If the physician has not prescribed medication, you may take acetaminophen, ibuprofen, or naproxen [id number]. Read the instructions and follow any precautions, however. If the doctor has prescribed medication, take it exactly as recommended. Muscle relaxants and strong pain medications can make you drowsy, so avoid driving and operating dangerous machinery if you are taking any of these. 4. Sleeping without a pillow may help ease the pain. You also may sleep with a cervical pillow (a special pillow you can buy at a medical supply store). You also may use a small towel rolled up tightly (2 inches thick) and place it under your neck. RETURN IMMEDIATELY IF: 1. You have pain, numbness, tingling, or weakness of your arms, legs, face, or scalp. 2. You have shortness of breath, a hoarse voice, or difficulty swallowing. 3. You have increasing headaches or difficulty seeing. Referring Provider: SELF [[id number]] Allergies As of Date: 12/24/2017 Noted Allergy Reaction BACTRIM (SULFAMETHOXAZOLE) 08/12/2013 9 - Itching MEDROL DOSE PACK (METHYLPREDNISOL*01/31/2017 7 - Swelling Comments: Swelling of throat MORPHINE 08/12/2013 9 - Itching Date Reviewed: 12/24/2017 Reviewed by: Wilmer ([facility]) Bruce - Fully Assessed Reason for Visit: left shoulder pain [Other] Primary Visit Diagnosis:Acute strain of neck muscle, initial encounter [S16.1XXA] Other Visit Diagnosis:Acute left-sided thoracic back pain [M54.6] Order(s):cyclobenzaprine (FLEXERIL) 10 mg tabletTake 1 tablet by mouth three times daily as needed for Muscle Spasm.Disp: 30 tabletRfl: 0 Prescriptions as of 12/24/2017 Sig: FLUTICASONE 50 MCG/ACTUATION * Use 2 Sprays in each nostril * ALBUTEROL SULFATE 2.5 MG/3 ML* Use 3 mL via nebulizer every * TIOTROPIUM BROMIDE 18 MCG CAP* INHALE THE CONTENTS OF 1 CAPS* LEVOTHYROXINE 88 MCG TABLET Take one tab by mouth daily M* HYDROXYZINE HCL 25 MG TABLET Take 1-2 tabs by mouth prior * FLUTICASONE-SALMETEROL 230 MC* Inhale 2 Puffs as instructed * POLYETHYLENE GLYCOL 3350 17 G* Take 17 g by mouth once daily* ALBUTEROL SULFATE HFA 90 MCG/* USE 2 INHALATIONS EVERY 6 NURA* SUCRALFATE 1 GRAM TABLET Take 1 tablet by mouth three * CYCLOBENZAPRINE 10 MG TABLET Take 1 tablet by mouth three * TYLENOL 8 HOUR ORAL Take 2 Tablespoonsful by mout* IPQWXSEGX-WNJ-JZ-ACETAMINOPHE* Take 2 Tablespoonsful by mout* IBUPROFEN 200 MG TABLET Take 400 mg by mouth every 6 * CHOLECALCIFEROL (VITAMIN D3) * Take 2 capsules by mouth once* DEXLANSOPRAZOLE 30 MG CAPSULE* Take 30 mg by mouth once rnadolph* Medication notes this encounter TYLENOL 8 HOUR ORAL >> Nohemi Singh Ma 12/24/2017 3:15 PM >> NOHEMI SINGH MA FriDec 24, 2017 3:15 PM Prn GTWWGLNDG-WPS-KU-ACETAMINOPHEN 6.25 MG-30 [id number]/15ML ORAL LIQD >> Nohemi Singh Ma 12/24/2017 3:15 PM >> NOHEMI SINGH MA FriDec 24, 2017 3:15 PM D/c IBUPROFEN 200 MG TABLET >> Nohemi Singh Ma 12/24/2017 3:15 PM >> NOHEMI SINGH MA FriDec 24, 2017 3:15 PM D/c Problem List As Of Date 12/24/2017 Noted Resolved Post-menopausal [Z78.0] Priority: C COPD with asthma (HCC) [J44.9] Priority: A Vitamin D deficiency [E55.9] Priority: B More... More... Smoker [F17.200] INVALID FOR* Priority: C Allergic rhinitis [J30.9] INVALID FOR* Priority: B Insomnia [G47.00] INVALID FOR* Priority: B Acquired hypothyroidism [E03.9] INVALID FOR* Priority: A More... More... Constipation [K59.00] INVALID FOR* Priority: C Encounter for gynecological examination without*INVALID FOR* Priority: E More... Well adult exam [Z00.00] INVALID FOR* Priority: E More... Gastro-esophageal reflux disease with esophagit*INVALID FOR* Priority: A More... 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 This can happen in a car accident or when wrestling, but can also occur with minor activity. Sometimes people even wake up from sleep with a neck strain! INSTRUCTIONS: 1. Reduce your activity until the pain is improved; rest in bed if needed. 2. If you can stand it, applying ice for the first 24 - 48 hours may keep the swelling down. Place ice in a plastic bag and apply over a towel for 10 minutes at a time. Some people find this too uncomfortable, and prefer warm compresses. In this case, apply a warm heating pad or warm, moist towels for 10 minutes at a time. This can be continued after the initial 48 hours as well to speed healing and for comfort. 3. If the physician has not prescribed medication, you may take acetaminophen, ibuprofen, or naproxen ozbv-gsv-ritiamu. Read the instructions and follow any precautions, however. If the doctor has prescribed medication, take it exactly as recommended. Muscle relaxants and strong pain medications can make you drowsy, so avoid driving and operating dangerous machinery if you are taking any of these. 4. Sleeping without a pillow may help ease the pain. You also may sleep with a cervical pillow (a special pillow you can buy at a medical supply store). You also may use a small towel rolled up tightly (2 inches thick) and place it under your neck. RETURN IMMEDIATELY IF: 1. You have pain, numbness, tingling, or weakness of your arms, legs, face, or scalp. 2. You have shortness of breath, a hoarse voice, or difficulty swallowing. 3. You have increasing headaches or difficulty seeing. Prescriptions ordered this encounter Disp Refills Start End CYCLOBENZAPRINE 10 MG TABLET 30 t* 0 12/24/2017 Route: ORAL Sig: Take 1 tablet by mouth three times daily as needed for Muscle Spasm. Encounter Status:Closed by WILMER BARRERA CNP on 12/24/17 RE-EVALUATION - PT (1) Observed: 12/09/2017 Status: F Source: [place] 9:06 AM [facility] REPOSITORY [facility] [address] [place] [address] Fax REEVALUATION / MEDICARE RECERTIFICATION PHYSICAL THERAPY MR#: [id number] Acct: [id number] Name: BRENDA VILLALOBOS Rep #: [id number] : 1970 47 From: Juan Galeas DPT, OCS, CSCS Referring : Jennifer Workman DPM Status: REG RCR Insurance: [employer] SELF PAY INSURANCE Jennifer Workman DPM, It has been my pleasure to treat BRENDA VILLALOBOS over the last 9 visits for L healing 2 MT fx, Stress 3//5 MT and talus. Please see the progress note below for an update on the physical therapy plan of care! Subjective: Feels medium better. Soreness comes and goes to 8/10 adn sometimes not at all. Good days and bad days without pattern. Pain is L lateral MT. Saw doctor today and is doing OK and will go back 01.05.18. HEP daily band and toe curls and stretches. Sleep is OK. Activities are close to normal, does steps and walks alot. Was in [employer] for an hour in egualr shoe last and that was the last time it really hurt. Has weaned out of boot for the most part. Wants to continue therapy. Goes back to work in a month. Objective/Function: Full aROM L foot without pain, 4+/5 stretngth all ankle motions on L without pain. Tender mildly top of 4th MT to pressure but not squeezing. walks and steps without deficits. OVERALL MUCH IMPROVEMENT AND DOING WELL. RECOMMEND CONTINUING VIA HEP AND F/U FOR PROGRESSION. Plan Plan: F/U TWO WEEKS TO ENSURE PROGRESS WITH ACTIVITY TOLERANCE AND STRENGTH. PROGRESS TO SLS, SLS HEEL RAISE, LUNGES. Goals Goal 1:: Full ROM B ankles and Metatarsals without pain Goal Time Frame: 4-6 Weeks Goal Progress: Goal Met Goal 2:: Patient wean out of boot without increased pain for 8-10 hours. Goal Time Frame: 4-6 Weeks Goal Progress: Goal Met Goal 3:: Patient feel ready to return to work without increased pain Goal Time Frame: 6-8 Weeks Goal Progress: Not yet. Goal 4:: I approp HEP to minimize future problems. Goal Time Frame: 4-6 Weeks Goal Progress: Progressing Goal 5:: Tolerating 3-4 hours on feet without increased pain. Goal Time Frame: 2 Weeks Goal Progress: NEW GOAL Anticipated Interventions Patient/Client Instruction: Educate patient on: Condition, Plan of Care For the Purpose of:: To decrease pain, To increase ROM, To decrease level of supervision to perform tasks, To improve ability of physical actions for home/community/work/leisure Therapeutic Exercise to Include: Strength training, Flexibilty training, Gait and locomotor training, Passive ROM, Active ROM For the Purpose of:: To decrease pain, To increase ROM, To improve muscle performance and motor function, To improve ability of physical actions for home/community/work/leisure, To improve gait and locomotor functions Manual Therapy Techniques to Include: Soft tissue mobilization For the Purpose of:: To decrease pain, To improve nutrient delivery to tissue, To improve ability of physical actions for home/community/work/leisure, To improve gait and locomotor functions TENS: Yes - as needed. Cryotherapy (ice pack, ice massage): Yes For the Purpose of:: To decrease pain, To decrease swelling/inflammation Please do not hesitate to contact me at [phone] by phone or if you have questions or concerns regarding this new plan of care! Sincerely, Juan Galesa DPT, OC <Electronically signed by Juan Galeas DPT, RASHAD, CSCS> 12/09/17 0906 CC: Jennifer Workman DPM; Fortino Logan MD EBG Signed For Medicare only, by signing this I certify the plan of care. Physicians Signature Date INITAL EVALUATION (1) Observed: 11/13/2017 Status: F Source: [place] - PT 9:13 AM [facility] REPOSITORY [facility] [address] [place] [address] Fax REHABILITATION SERVICES INITIAL EVALUATION MR#: [id number] Acct: [id number] Name: BRENDA VILLALOBOS Rep #: [id number] : 1970 47 From: Juan Galeas DPT, OCS, CSCS Referring Dr.: Jennifer Workman DPM Status: REG RCR Insurance: ANTH SELF PAY INSURANCE Patient's Visit Information BRENDA VILLALOBOS is a 47 year old F referred to Physical Therapy by STACY Luong with a diagnosis of L healing 2 MT fx, Stress 3/4/5 MT and talus. Date of Evaluation: 11/12/17 Physical Therapist: COLTON EidT, OC - Visit Plan Frequency: 2x /Week Duration: 2 Months Plan: 2x/week for 4-8 for. 1. STM to L foot and lower leg. 2. L ankle stretch and strength.proprioception. 3. ice adn ES as necessary. Most importantly, wean out of boot starting 1 hour per day for 3 days then add an hour every three days as tolerated. - Subjective Subjective: Stress fx left foot 2nd metatarsal stress fracture. Fell a year ago but did not get it taken care of until boot in April. Healed OK back to shoe over the fall. Back to work in September adn got worse again. She works at [employer] and walks on concrete all day. MRI was done and bone next to fractrure is swollen. Back in boot since October 23. It helps. Not painful in boot. If walks around at night wihtout boot it can hurt. Sometimes hurts more at night. Off work again since Oct 23 and will be off until january. Sleep is normal. Does all aDLs with boot on and is OK. - Pain L foot metatarsals Pain Intensity (Out of 10): 0 Pain Intensity Range: 0, 10 Comment: If on it alot. - Objective L Walks with L foot in boot without antalgia. Pt states she walked on side of foot when went back to work in September, no sign of that today. Transfers I and I bed mobility. L circulation tender to touch plantar surface 3/4 met heads adn top surface 2/3/4/5 met head area. Movement is decent compared to R at met heads but painful mostly with compression of met heads'. Gastroc and soleus mod tight B at 3 degrees DF. Pt has pes planus B and has OTC orthotics given to her by Dr. Recinos at home. Toe and ankle strength on L 4/5 adn R 4+, slight pain with great toe extension. ankle strength is 4/5 L adn 4+ R without pain. knee strength is 4+/5 B knee flex adn ext...no pain. heel walk and toe raises are painfree today. - Goals Goal 1:: Full ROM B ankles and Metatarsals without pain Goal Time Frame: 4-6 Weeks Goal 2:: Patient wean out of boot without increased pain for 8-10 hours. Goal Time Frame: 4-6 Weeks Goal 3:: Patient feel ready to return to work without increased pain Goal Time Frame: 6-8 Weeks Goal 4:: I approp HEP to minimize future problems. Goal Time Frame: 4-6 Weeks - Rehabilitation Potential Physical Therapy Diagnosis: Inflammation in MT L foot Rehabilitation Potential: Fair - Anticipated Interventions Patient/Client Instruction: Educate patient on: Condition, Plan of Care For the Purpose of:: To decrease pain, To increase ROM, To decrease level of supervision to perform tasks, To improve ability of physical actions for home/community/work/leisure Therapeutic Exercise to Include: Strength training, Flexibilty training, Gait and locomotor training, Passive ROM, Active ROM For the Purpose of:: To decrease pain, To increase ROM, To improve muscle performance and motor function, To improve ability of physical actions for home/community/work/leisure, To improve gait and locomotor functions Manual Therapy Techniques to Include: Soft tissue mobilization For the Purpose of:: To decrease pain, To improve nutrient delivery to tissue, To improve ability of physical actions for home/community/work/leisure, To improve gait and locomotor functions TENS: Yes - as needed. Cryotherapy (ice pack, ice massage): Yes For the Purpose of:: To decrease pain, To decrease swelling/inflammation Thank you for the opportunity to evaluate your patient. For Medicare and Medicare HMO plans, please review the plan of care and approve it. It will need to be FAXED BACK to us at [phone] for Medicare purposes. Please let me know if there are questions or concerns regarding this plan of care. Physician Signature: Date: <Electronically signed by Juan Galeas DPT, OCS, CSCS> 11/13/17 0913 CC: Jennifer Workman DPM; Fortino Logan MD EBGabriella Signed For Medicare only, by signing this I certify the plan of care. Physicians Signature Date PROGRESS Observed: 11/10/2017 Status: COMPLETED Source: [place] 3:59 PM [facility] REPOSITORY HNO ID: [id number] Author: Markus Amaya Service: (none) Author Type: Nurse Practitioner Type: Progress Notes Filed: 11/10/2017 4:19 PM Note Text: HPI HPI Brenda Villalobos is a 47 year old female who presents today for CC of sinus pressure/headache. This started over 1 week ago. Has tried multiple otc medications with no relief. Symptoms are made relieved by nothing. Symptoms are worsened by nothing. Risk factors has hx of sinus infections. Denies possibility of being . Review of Systems Constitutional: Negative for chills, fever and weight loss. HENT: Positive for congestion. Negative for ear pain, nosebleeds and sore throat. Respiratory: Positive for cough. Negative for shortness of breath and wheezing. Musculoskeletal: Negative for neck pain. 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 Chow - Vitamin D deficiency PAST SURGICAL HISTORY Procedure Laterality Date - EGD W/O BRSH SPECIMEN W/BX 05/27/2016 - OFFICE LEEP 2001 - TOTAL ABDOM HYSTERECTOMY 2002 [facility] bso ALLERGIES Bactrim [Sulfamethoxazole]; Medrol Dose Pack [Methylprednisolone]; Morphine MEDICATIONS ACETAMINOPHEN (TYLENOL 8 HOUR ORAL) Take 2 Tablespoonsful by mouth as needed. Nsvbjdm-Gqlwpelggsn-XM-Acetam (NYQUIL D) 6.58-64-48-500 mg/15 mL liqd Take 2 Tablespoonsful by mouth as needed. ibuprofen (MOTRIN IB) 200 mg tablet Take 400 mg by mouth every 6 hours as needed. albuterol (PROVENTIL) 2.5 mg /3 mL (0.083 %) nebulizer solution Use 3 mL via nebulizer every 6 hours as needed for Wheezing/Shortness of Breath. Use over 5-15minutes. tiotropium (SPIRIVA WITH HANDIHALER) 18 mcg inhalation capsule INHALE THE CONTENTS OF 1 CAPSULE DAILY INSTRUCTED. USE WITH HANDIHALER levothyroxine (SYNTHROID) 88 mcg tablet Take one tab by mouth daily Fri-Friday. None on Friday hydrOXYzine HCl (ATARAX) 25 mg tablet Take 1-2 tabs by mouth prior to bed as needed for sleep. fluticasone-salmeterol HFA (ADVAIR HFA) 230-21 mcg/actuation inhaler Inhale 2 Puffs as instructed twice daily. Cholecalciferol, Vitamin D3, 1,000 unit cap Take 2 capsules by mouth once daily. polyethylene glycol 3350 (MIRALAX, GLYCOLAX) 17 gram/dose powder Take 17 g by mouth once daily. Take one (1) capful in 8oz of liquid each day. albuterol HFA (PROAIR HFA) 90 mcg/actuation inhaler USE 2 INHALATIONS EVERY 6 HOURS INSTRUCTED NEEDED sucralfate (CARAFATE) 1 gram tablet Take 1 tablet by mouth three times daily. Dexlansoprazole (DEXILANT) 30 mg CpDM Take 30 mg by mouth once daily. FAMILY HISTORY Problem Relation Age of Onset - COPD Mother - Heart Mother - Thyroid Mother - Hypertension Mother - Kidney Disease Mother Kidney failure - Asthma Mother - Breast Cancer Mother - Diabetes Son Type 1 - Asthma Son Social History Substance Use Topics - Smoking status: Current Every Day Smoker Packs/day: 0.50 Years: 30.00 Types: Cigarettes Start date: 1981 - Smokeless tobacco: Never Used Comment: Both parents smoked in childhood home. 1st AM cigarette within 5 minutes of waking up. 01/30/16. TO - Alcohol use No Blood pressure 108/74, pulse 74, temperature 36.8 ?C (98.2 ?F), temperature source Tympanic, resp. rate 14, weight 62.6 kg (138 lb). Physical Exam Constitutional: She is oriented to person, place, and time and well-developed, well-nourished, and in no distress. Non-toxic appearance. She does not have a sickly appearance. No distress. HENT: Head: Normocephalic and atraumatic. Right Ear: Hearing, tympanic membrane, external ear and ear canal normal. Left Ear: Hearing, tympanic membrane, external ear and ear canal normal. Nose: Right sinus exhibits maxillary sinus tenderness. Mouth/Throat: Uvula is midline, oropharynx is clear and moist and mucous membranes are normal. Eyes: Conjunctivae and lids are normal. Pupils are equal, round, and reactive to light. Right eye exhibits no discharge. Left eye exhibits no discharge. No scleral icterus. Neck: Trachea normal and normal range of motion. Neck supple. Cardiovascular: Normal rate, regular rhythm and normal heart sounds. Pulmonary/Chest: Effort normal and breath sounds normal. Lymphadenopathy: She has no cervical adenopathy. Neurological: She is alert and oriented to person, place, and time. Skin: No rash noted. She is not diaphoretic. ASSESSMENT/PLAN: 1. Bacterial sinusitis - ICD9: 473.9, 041.9, ICD10: J32.9, B96.89 - Will begin treatment with Augmentin 875 mg PO BID for 10 days - Supportive care with plenty of fluids, rest, and analgesia prn. - Follow up in 3-5 days if symptoms persist or worsen. - FLUTICASONE 50 MCG/ACTUATION NASAL SPRAY,SUSPENSION Prescription instructions reviewed with patient as applicable. Patient advised if symptoms do not improve or if symptoms worsen sooner, to contact the office for further evaluation by their primary care physician. Potential red flag symptoms discussed with the patient. Reviewed appropriate action plan to take if red flag symptoms occur. Patient agreeable to treatment plan. Markus Amaya CNP CNOV Observed: 11/10/2017 Status: COMPLETED Source: [place] 3:15 PM [facility] REPOSITORY Office Visit ([facility]) BRENDA VILLALOBOS ([id number]) 1970 F Date Time Provider Department 11/10/17 3:15 PM MARKUS AMAYA) [facility]STR During your visit today, we recorded the following information about you: Temperature Pulse Respiration Blood pressure 98.2 degrees 74/minute 14/minute 108/74 Weight 62.6 kg Markus Amaya CNP 11/10/2017 4:19 PM Signed HPI HPI Brenda Villalobos is a 47 year old female who presents today for CC of sinus pressure/headache. This started over 1 week ago. Has tried multiple otc medications with no relief. Symptoms are made relieved by nothing. Symptoms are worsened by nothing. Risk factors has hx of sinus infections. Denies possibility of being . Review of Systems Constitutional: Negative for chills, fever and weight loss. HENT: Positive for congestion. Negative for ear pain, nosebleeds and sore throat. Respiratory: Positive for cough. Negative for shortness of breath and wheezing. Musculoskeletal: Negative for neck pain. 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 Chow - Vitamin D deficiency PAST SURGICAL HISTORY Procedure Laterality Date - EGD W/O BRSH SPECIMEN W/BX 05/27/2016 - OFFICE LEEP 2001 - TOTAL ABDOM HYSTERECTOMY 2002 [facility] ALLERGIES Bactrim [Sulfamethoxazole]; Medrol Dose Pack [Methylprednisolone]; Morphine MEDICATIONS ACETAMINOPHEN (TYLENOL 8 HOUR ORAL) Take 2 Tablespoonsful by mouth as needed. Gcnzowb-Mldhnpbfqxs-DI-Acetam (NYQUIL D) 6.45-23-54-500 mg/15 mL liqd Take 2 Tablespoonsful by mouth as needed. ibuprofen (MOTRIN IB) 200 mg tablet Take 400 mg by mouth every 6 hours as needed. albuterol (PROVENTIL) 2.5 mg /3 mL (0.083 %) nebulizer solution Use 3 mL via nebulizer every 6 hours as needed for Wheezing/Shortness of Breath. Use over 5-15minutes. tiotropium (SPIRIVA WITH HANDIHALER) 18 mcg inhalation capsule INHALE THE CONTENTS OF 1 CAPSULE DAILY INSTRUCTED. USE WITH HANDIHALER levothyroxine (SYNTHROID) 88 mcg tablet Take one tab by mouth daily Fri-Friday. None on Friday hydrOXYzine HCl (ATARAX) 25 mg tablet Take 1-2 tabs by mouth prior to bed as needed for sleep. fluticasone-salmeterol HFA (ADVAIR HFA) 230-21 mcg/actuation inhaler Inhale 2 Puffs as instructed twice daily. Cholecalciferol, Vitamin D3, 1,000 unit cap Take 2 capsules by mouth once daily. polyethylene glycol 3350 (MIRALAX, GLYCOLAX) 17 gram/dose powder Take 17 g by mouth once daily. Take one (1) capful in 8oz of liquid each day. albuterol HFA (PROAIR HFA) 90 mcg/actuation inhaler USE 2 INHALATIONS EVERY 6 HOURS INSTRUCTED NEEDED sucralfate (CARAFATE) 1 gram tablet Take 1 tablet by mouth three times daily. Dexlansoprazole (DEXILANT) 30 mg CpDM Take 30 mg by mouth once daily. FAMILY HISTORY Problem Relation Age of Onset - COPD Mother - Heart Mother - Thyroid Mother - Hypertension Mother - Kidney Disease Mother Kidney failure - Asthma Mother - Breast Cancer Mother - Diabetes Son Type 1 - Asthma Son Social History Substance Use Topics - Smoking status: Current Every Day Smoker Packs/day: 0.50 Years: 30.00 Types: Cigarettes Start date: 1981 - Smokeless tobacco: Never Used Comment: Both parents smoked in childhood home. 1st AM cigarette within 5 minutes of waking up. 01/30/16. TO - Alcohol use No Blood pressure 108/74, pulse 74, temperature 36.8 ?C (98.2 ?F), temperature source Tympanic, resp. rate 14, weight 62.6 kg (138 lb). Physical Exam Constitutional: She is oriented to person, place, and time and well-developed, well-nourished, and in no distress. Non-toxic appearance. She does not have a sickly appearance. No distress. HENT: Head: Normocephalic and atraumatic. Right Ear: Hearing, tympanic membrane, external ear and ear canal normal. Left Ear: Hearing, tympanic membrane, external ear and ear canal normal. Nose: Right sinus exhibits maxillary sinus tenderness. Mouth/Throat: Uvula is midline, oropharynx is clear and moist and mucous membranes are normal. Eyes: Conjunctivae and lids are normal. Pupils are equal, round, and reactive to light. Right eye exhibits no discharge. Left eye exhibits no discharge. No scleral icterus. Neck: Trachea normal and normal range of motion. Neck supple. Cardiovascular: Normal rate, regular rhythm and normal heart sounds. Pulmonary/Chest: Effort normal and breath sounds normal. Lymphadenopathy: She has no cervical adenopathy. Neurological: She is alert and oriented to person, place, and time. Skin: No rash noted. She is not diaphoretic. ASSESSMENT/PLAN: 1. Bacterial sinusitis - ICD9: 473.9, 041.9, ICD10: J32.9, B96.89 - Will begin treatment with Augmentin 875 mg PO BID for 10 days - Supportive care with plenty of fluids, rest, and analgesia prn. - Follow up in 3-5 days if symptoms persist or worsen. - FLUTICASONE 50 MCG/ACTUATION NASAL SPRAY,SUSPENSION Prescription instructions reviewed with patient as applicable. Patient advised if symptoms do not improve or if symptoms worsen sooner, to contact the office for further evaluation by their primary care physician. Potential red flag symptoms discussed with the patient. Reviewed appropriate action plan to take if red flag symptoms occur. Patient agreeable to treatment plan. LUKASZ Nguyễn CNP 11/10/2017 4:15 PM Signed SINUSITIS: You have sinusitis, an infection of the sinus cavities around the nose. This infection usually follows a respiratory illness; it can also be related to allergies, changes in atmospheric pressure (flying, diving), or anything that blocks nasal drainage. Symptoms include: headache, facial pain, a thick nasal discharge, congestion, and cough. The treatment includes antibiotic therapy, increasing oral fluids, and pain medication if needed. Nose spray decongestants (Afrin, Grzegorz- Synephrine) and oral decongestants may be needed to reduce congestion and drainage. Rarely the sinus must be irrigated to remove the infected material. Sinusitis can lead to serious complications by spreading to other areas such as the eye or brain. Please call your doctor or return here right away if you have any of the following more serious symptoms: - Unusual swelling around the eye or trouble seeing. - Increasing pain, severe headache, or toothache. - Nausea, vomiting, or unusual drowsiness. Referring Provider: SELF [200] Allergies As of Date: 11/10/2017 Noted Allergy Reaction BACTRIM (SULFAMETHOXAZOLE) 08/12/2013 9 - Itching MEDROL DOSE PACK (METHYLPREDNISOL*01/31/2017 7 - Swelling Comments: Swelling of throat MORPHINE 08/12/2013 9 - Itching Date Reviewed: 11/10/2017 Reviewed by: Markus Wells) - Fully Assessed Reason for Visit: Pain, Sinus [857] Cmt: sinus pressure/drainage x 1 week Primary Visit Diagnosis:Bacterial sinusitis [J32.9, B96.89] Order(s):amoxicillin-clavulanic acid (AUGMENTIN) 875-125 mg per tabletTake 1 tablet by mouth twice daily for 10 days.Disp: 20 tabletRfl: 0 fluticasone (FLONASE) 50 mcg/actuation nasal sprayUse 2 Sprays in each nostril once daily. Rinse mouth after use.Disp: 1 BottleRfl: 0 Prescriptions as of 11/10/2017 Sig: TYLENOL 8 HOUR ORAL Take 2 Tablespoonsful by mout* DHFXXWRRG-BNQ-GO-ACETAMINOPHE* Take 2 Tablespoonsful by mout* IBUPROFEN 200 MG TABLET Take 400 mg by mouth every 6 * ALBUTEROL SULFATE 2.5 MG/3 ML* Use 3 mL via nebulizer every * TIOTROPIUM BROMIDE 18 MCG CAP* INHALE THE CONTENTS OF 1 CAPS* LEVOTHYROXINE 88 MCG TABLET Take one tab by mouth daily M* HYDROXYZINE HCL 25 MG TABLET Take 1-2 tabs by mouth prior * FLUTICASONE-SALMETEROL 230 MC* Inhale 2 Puffs as instructed * CHOLECALCIFEROL (VITAMIN D3) * Take 2 capsules by mouth once* POLYETHYLENE GLYCOL 3350 17 G* Take 17 g by mouth once daily* ALBUTEROL SULFATE HFA 90 MCG/* USE 2 INHALATIONS EVERY 6 NURA* SUCRALFATE 1 GRAM TABLET Take 1 tablet by mouth three * AMOXICILLIN 875 MG-POTASSIUM * Take 1 tablet by mouth twice * FLUTICASONE 50 MCG/ACTUATION * Use 2 Sprays in each nostril * DEXLANSOPRAZOLE 30 MG CAPSULE* Take 30 mg by mouth once randolph* Medication notes this encounter DEXLANSOPRAZOLE 30 MG CAPSULE,BIPHASE DELAYED RELEASE >> Terell Sims Cma 11/10/2017 3:43 PM >> TERELL SIMS CMA Nov 10, 2017 3:43 PM Not taking Problem List As Of Date 11/10/2017 Noted Resolved Post-menopausal [Z78.0] Priority: C COPD with asthma (HCC) [J44.9] Priority: A Vitamin D deficiency [E55.9] Priority: B More... More... Smoker [F17.200] INVALID FOR* Priority: C Allergic rhinitis [J30.9] INVALID FOR* Priority: B Insomnia [G47.00] INVALID FOR* Priority: B Acquired hypothyroidism [E03.9] INVALID FOR* Priority: A More... More... Constipation [K59.00] INVALID FOR* Priority: C Encounter for gynecological examination without*INVALID FOR* Priority: E More... Well adult exam [Z00.00] INVALID FOR* Priority: E More... Gastro-esophageal reflux disease with esophagit*INVALID FOR* Priority: A More... 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 This infection usually follows a respiratory illness; it can also be related to allergies, changes in atmospheric pressure (flying, diving), or anything that blocks nasal drainage. Symptoms include: headache, facial pain, a thick nasal discharge, congestion, and cough. The treatment includes antibiotic therapy, increasing oral fluids, and pain medication if needed. Nose spray decongestants (Afrin, Grzegorz-Synephrine) and oral decongestants may be needed to reduce congestion and drainage. Rarely the sinus must be irrigated to remove the infected material. Sinusitis can lead to serious complications by spreading to other areas such as the eye or brain. Please call your doctor or return here right away if you have any of the following more serious symptoms: - Unusual swelling around the eye or trouble seeing. - Increasing pain, severe headache, or toothache. - Nausea, vomiting, or unusual drowsiness. Prescriptions ordered this encounter Disp Refills Start End AMOXICILLIN 875 MG-POTASSIUM CLAVULA* 20 t* 0 11/10/2017 11/20/2017 Route: ORAL Sig: Take 1 tablet by mouth twice daily for 10 days. FLUTICASONE 50 MCG/ACTUATION NASAL S* 1 Neno* 0 11/10/2017 Route: EACH NOSTRIL Sig: Use 2 Sprays in each nostril once daily. Rinse mouth after use. Encounter Status:Closed by MARKUS AMAYA CNP on 11/10/17 ALLERGIES ALLERGIES DATE TYPE / NAME / CODE REACTION SEVERITY SOURCE CODE 09/28/2018 Drug morphine/[id number](RXNO Itching Unknown [place] Allergy/41 RM) Community [id number]([facility]) Repository 09/28/2018 Drug methylprednisolone/F0060 Swelling Unknown [place] Allergy/41 88857(RXNORM) Community [id number]([facility]) Repository 09/28/2018 Drug sulfamethoxazole/[id number] Itching Unknown [place] Allergy/41 827(RXNORM) Community [id number]([facility]) Repository 09/28/2018 Drug trimethoprim/[id number]( Itching Unknown [place] Allergy/41 RXNORM) Community [id number]([facility]) Repository 01/31/2017 DRUG METHYLPREDNISOLONE SWELLING Med [place] INGREDI/41 Clinic Main [id number]([facility]) Repository 01/31/2017 [id number] 08/12/2013 DRUG SULFAMETHOXAZOLE ITCHING [place] INGREDI/41 Clinic Main [id number]([facility]) Repository 08/12/2013 [facility] [id number][facility] Repository 08/12/2013 DRUG SUL[facility]OLE [facility] [id number]([facility] Repository 08/12/2013 [facility] [id number][facility] Repository ENCOUNTERS ENCOUNTERS ADMIT/DISCHARGE ACCOUNT ADMITTING ENCOUNTER LOCATION SOURCE NUMBER CLASS 10/23/2018/10/26/19 [id number] Ambulatory [place] 19 [facility] Main [place] Repository 10/17/2018 [id number] Ambulatory [facility] ing:LAB Repository 09/28/2018/09/28/20 [id number] Emergency [address] ing:ED Repository 09/28/2018/09/29/20 [id number] Ambulatory [place] 18 [facility] Main [place] Repository 07/31/2018/08/03/20 [id number] Ambulatory [place] 18 [facility] Main [place] Repository 05/12/2018/05/13/20 [id number] Ambulatory [address] Repository 04/29/2018/04/29/20 [id number] Ambulatory [address] Repository 04/22/2018/04/23/20 [id number] Ambulatory [address] Repository 04/04/2018 [id number] [facility] ing:LAB.FUTUR Repository E 02/06/2018/02/17/[id number] Repository 02/04/2018 [id number] [facility] ing:LAB.FUTUR Repository E 02/04/2018/02/06/[id number] Repository 12/24/2017/12/26/[id number] Repository 12/24/2017/12/25/[id number] ing:PT Repository 11/10/2017/11/10/[id number] Repository PAYERS PAYERS ENCOUNTER GUARANTOR PAYER SUBSCRIBER SOURCE 10/17/2018 BRENDA Bustamante Primary BRENDA Bustamante [place] [id number] Insurance:ANTHEMPolic STARCHERDOB: [facility] MINDY, y Number: [id number] [address]Ign: [id number] Repository Date:0182-09-98RX [address] () [id number] [place] [address]KP: 10/17/2018 Secondary NOT GIVENUNK [place] Insurance:SELF PAY [facility] Number: Effective Repository Date:2018-10-14 09/28/2018 BRENDA Bustamante Primary BRENDA Bustamante [place] [id number] Insurance:ANTHEMPolic STARCHERDOB: [facility] MINDY, y Number: [id number] Vista Regional Hospital [address]Nkj: [id number] Repository Date:0374-36-84QT [address] () [address], [place] [address]AN: 09/28/2018 Secondary NOT GIVENUNK [place] Insurance:SELF PAY [facility] Number: Effective Repository Date:2018-09-28 04/04/2018 BRENDA Bustamante Primary BRENDA Bustamante [place] [id number] Insurance:ANTHEMPolic STARCHERDOB: [facility] MARKET STSEVJyoti, y Number: [id number] Vista Regional Hospital [address]Ard: [id number] Repository Date:[id number] [address] () [id number] [place] [address]AF: 04/04/2018 Secondary NOT GIVENUNK [place] Insurance:SELF PAY [facility] Number: Effective Repository Date:2018-04-01 02/04/2018 BRENDA Bustamante Primary BRENDA Bustamante [place] [id number] Insurance:ANTHEMPolic STARCHERDOB: [facility], y Number: [id number] Vista Regional Hospital [address]Msl: [id number] Repository Date:[id number] [address] () [address]XRRDQ, [place] [address]FU: 02/04/2018 Secondary NOT GIVENUNK [place] Insurance:SELF PAY [facility] Number: Effective Repository Date:2018-02-03 12/24/2017 BRENDA Bustamante Primary BRENDA Bustamante [place] [id number] Insurance:ANTHEMPolic STARCHERDOB: [facility], y Number: [id number] Vista Regional Hospital [address]Rxn: [id number] Repository Date:7092-08-84FG [address] () [address]THDBEMR, [place] [address]GW: 12/24/2017 Secondary NOT GIVENUNK [place] Insurance:SELF PAY [facility] Number: Effective Repository Date:2017-11-07
== END 2018-09-28 19:38 | disposition home or self-care (01) ==
PROVIDERS: Emergency Provider Emergency Medicine; Family Provider Family Medicine; PCP Family Medicine
DX: J44.1 Chronic obstructive pulmonary disease with (acute) exacerbation (principal); R79.89 Other specified abnormal findings of blood chemistry; E03.9 Hypothyroidism, unspecified; Z79.899 Other long term (current) drug therapy; Z72.0 Tobacco use
CPT/HCPCS: 71046; 71275; 80048; 84484; 85025; 85379; 93005; 94640; 99284; Q9967; A4216

== ENCOUNTER → 2018-10-17 08:51 | Outpatient (CLI) | payer BC, SELFPAY ==
[2018-09-28 16:04] VITALS: BMI 23.6
[2018-10-17 10:17] LABS: Hemoglobin A1c 5.4 % (4.2-6.3)
[2018-10-17 10:38] LABS: ALB/GLOB Ratio 1.1 RATIO (0.9-2.4); AST(SGOT) 8 U/L (15-37); Alanine Aminotransfer ALT/SGPT 23 U/L (13-56); Albumin, Serum 3.7 g/dL (3.2-5.0); Alkaline Phosphatase 57 U/L (45-117); Anion Gap 8 (5-15); BUN 13 mg/dL (7-18); BUN/Creat Ratio 17.3 RATIO (10-20); Calcium,Total 8.5 mg/dL (8.5-10.1); Chloride 107 mmol/L (98-107); Cholesterol 208 mg/dL (200); Creatinine, Serum 0.75 mg/dL (0.55-1.02); EST Glomerular Filtration Rate 87 mL/min (>60); Est Glom Filt Rate - Afr Amer 105 mL/min (>60); Globulin 3.4 g/dL (2.2-4.2); Glucose 91 mg/dL (74-106); High Density Lipoprotein 81 mg/dL; Potassium 3.8 mmol/L (3.5-5.1); Protein, Total 7.1 g/dL (6.4-8.2); Sodium Level 141 mmol/L (136-145); Thyroid Stim Hormone (TSH) 5.51 uIU/mL (0.358-3.74); Triglycerides 135 mg/dL; Very Low Density Lipoprotein 27 mg/dL (5-40)
== END ==
PROVIDERS: Family Provider Family Medicine; PCP Family Medicine; Referring Provider Family Medicine; Visit Provider Family Medicine
DX: E03.9 Hypothyroidism, unspecified (principal); E78.5 Hyperlipidemia, unspecified; R73.01 Impaired fasting glucose
CPT/HCPCS: 36415; 80053; 80061; 83036; 84443

== ENCOUNTER → 2018-12-14 14:47 | Outpatient (CLI) | payer BC, SELFPAY | PROVIDERS: Family Provider Family Medicine; PCP Family Medicine; Referring Provider Family Medicine; Visit Provider Family Medicine | DX: E55.9 Vitamin D deficiency, unspecified (principal); E03.9 Hypothyroidism, unspecified | CPT/HCPCS: 36415; 82306; 84443 ==

== ENCOUNTER → 2019-02-15 | Outpatient (CLI) | payer BC, SELFPAY ==
[2019-02-15 15:49] LABS: Vitamin D,25 Hydroxy 20.9 ng/mL (29.95-100.01)
== END | disposition home or self-care (01) ==
LOC: LAB.FUTURE 14:37
PROVIDERS: Family Provider Family Medicine; PCP Family Medicine; Referring Provider Family Medicine; Visit Provider Family Medicine
DX: E55.9 Vitamin D deficiency, unspecified (principal)
CPT/HCPCS: 36415; 82306

== ENCOUNTER 2019-03-12 13:02 | Emergency (ER) | payer BC, SELFPAY ==
[2019-03-12 13:05] VITALS: BP 111/79; PULSE 105; RESP 18; TEMP 37.1; O2SAT 97; BMI 22.3
--- NOTE | 2019-03-12 13:40 | EKG12_ITS ---
Test Reason : UPPER ARM PAIN Blood Pressure : / mmHG Vent. Rate : 086 BPM Atrial Rate : 086 BPM P-R Int : 152 ms QRS Dur : 094 ms QT Int : 382 ms P-R-T Axes : 063 019 053 degrees QTc Int : 457 ms Normal sinus rhythm Normal ECG Confirmed by PEYTON AUGUSTIN, GLORY ([id number]), primer expeditor and drier RENETTA RIVERA ([id number]) on 03/15/2019 1:43:41 PM Referred By: NATALEE Confirmed By:GLORY TODD MD
[2019-03-12] MEDS: DiphenhydrAMINE 50 MG/ML Syringe 25 MG IV (13:59)
[2019-03-12] MEDS: Metoclopramide 10 MG/2 ML Vial IV (13:59)
[2019-03-12] MEDS: 0.9% Normal Saline 1,000 ML 1000 ML IV (13:59)
[2019-03-12] MEDS: Ketorolac 15 MG/ML Vial IV (14:03)
[2019-03-12 14:22] LABS: AST(SGOT) 13 U/L (15-37); Alanine Aminotransfer ALT/SGPT 18 U/L (13-56); Albumin, Serum 3.8 g/dL (3.2-5.0); Alkaline Phosphatase 62 U/L (45-117); Anion Gap 7 (5-15); BUN 6 mg/dL (7-18); BUN/Creat Ratio 8.1 RATIO (10-20); Calcium,Total 8.8 mg/dL (8.5-10.1); Chloride 104 mmol/L (98-107); Creatinine, Serum 0.74 mg/dL (0.55-1.02); EST Glomerular Filtration Rate 88 mL/min (>60); Est Glom Filt Rate - Afr Amer 107 mL/min (>60); Estimated Creatinine Clearance 71.93 ml/min; Globulin 3.8 g/dL (2.2-4.2); Glucose 108 mg/dL (74-106); Lipase 70 U/L (73-393); Potassium 4.2 mmol/L (3.5-5.1); Protein, Total 7.6 g/dL (6.4-8.2); Sodium Level 137 mmol/L (136-145)
[2019-03-12 14:41] VITALS: BP 124/67; PULSE 71; RESP 15; O2SAT 96
[2019-03-12 14:47] LABS: Bacteria 0 SEEN /hpf (None Seen); Mucous, Urine 0 SEEN /hpf (<or=2+); White Blood Cells 0 SEEN /hpf (0-5)
[2019-03-12 14:51] LABS: Color, Urine Yellow (Yellow); Glucose, Dipstick Normal (Normal); Leukocyte Esterase-Dipstick Negative /ul (Negative); Nitrite-Dipstick Negative (Negative); Occult Blood-Urine 10 /ul (Negative); Protein-Dipstick Negative (Negative); Urine Bilirubin Dipstick Negative (Negative); Urine Clarity Sl. Cloudy (Clear); Urine Urobilinogen Normal (Normal)
[2019-03-12 14:53] LABS: Ketone-Dipstick 150 mg/dl (Negative)
[2019-03-12 15:00] LABS: Red Blood Cells-Urine 0-5 SEEN /hpf (0-5); Squamous Epithelial Cells - UA 0-5 SEEN /hpf (5-10)
--- NOTE | 2019-03-12 15:45 | RAD_ITS ---
STUDY: X-RAY - RIGHT SHOULDER REASON FOR EXAM: Female, 48 years old. Pain TECHNIQUE: 4 view(s) of the shoulder. COMPARISON: None. FINDINGS: Narrowed glenohumeral articulation. Normal acromioclavicular joint. Normal acromion. Normal humeral head and visualized proximal humerus. The soft tissue structures are unremarkable. Normal visualized pulmonary apex. RAD/Shoulder min 2 Views IMPRESSION: Degenerative changes. No evidence for acute fracture. Electronically Signed: Fortino Tang MD at 17:05 EDT , Service support ,
--- NOTE | 2019-03-12 16:04 | ED.VISSUMM ---
- ER Visit Summary Date of Service: 03/12/19 Chief Complaint: [Right shoulder pain, headache, vomiting] History of Present Illness: The patient is a 48 F [presents to the emergency department with multiple complaints. Patient states that she is had right shoulder pain for about a week. Patient has not had any trauma to it. Patient states pain is worse with movement. She had similar problem with her left shoulder they attributed to rotator cuff problem. Patient has pain with abducting the arm at the shoulder. Patient also states that she started with a headache this morning around 4 AM. She said multiple episodes of vomiting associated. She denies any diarrhea. She describes the headache is frontal. She describes photophobia and loud sounds bothering her. Patient has had headaches in the past but never officially been diagnosed with any migraines. She has a history of COPD and GERD. Patient denies any recent illness otherwise. She denies urinary symptoms. Patient currently on antibiotics for sinus infection and she is taking clarithromycin.] Physical Examination: [HEENT-PERRLA, EOMI. Cranial nerves II through XII grossly intact. TMs clear. Mucous membranes moist. No adenopathy. Cardiovascular-regular rate and rhythm without murmur or ectopy Lungs-clear to auscultation, chest wall stable without crepitus or subcu emphysema Abdomen-normoactive bowel sounds, soft, nontender, no rebound or rigidity, no peritoneal signs. Neuro yxrb-ulxeaw-jigm and heel khan testing within normal limits, negative Romberg, negative pronator drift, fundi benign Extremities-intact ?4, normal range of motion, normal pulses, atraumatic. Right shoulder-patient has pain with range of motion of the glenohumeral joint. Patient neurovascular intact distally.] Test Results: [Chemistries unremarkable. Urinalysis unremarkable. Troponin is less than 0.015. EKG on arrival shows sinus rhythm with a ventricular rate of 86 bpm with no acute ST segment changes. X-rays of the right shoulder obtained were unremarkable.] Emergency Department Course and Treatment: [Patient was given a liter normal same fluid bolus as well as Reglan, Benadryl, and Toradol and her headache is now minimal rates it may be a 1 or 2 out of 10.] Treatment Plan: [Patient was given a sling for her shoulder. Patient will be given a prescription for ibuprofen as she does not will not want anything stronger for pain. Advised to follow-up with her primary care physician within next 3 to 5 days. Patient will be given referral to orthopedics.] Disposition: [Discharged home in stable condition.] Impression: [Right shoulder pain-etiology uncertain Cephalgia-suspect migraine] This note was generated with [employer] dictation software. It may contain incorrect words, spelling, and punctuation that were not noted in review of the chart prior to signing ED Disposition - Plan for ED Patient: Referrals: Fortino Srivastava MD [Primary Care Provider] -
--- NOTE | 2019-03-12 16:08 | ED.DCSUM_ITS ---
- ER Visit Summary Date of Service: 03/12/19 Chief Complaint: [Right shoulder pain, headache, vomiting] History of Present Illness: The patient is a 48 F [presents to the emergency department with multiple complaints. Patient states that she is had right shoulder pain for about a week. Patient has not had any trauma to it. Patient states pain is worse with movement. She had similar problem with her left shoulder they attributed to rotator cuff problem. Patient has pain with abducting the arm at the shoulder. Patient also states that she started with a headache this morning around 4 AM. She said multiple episodes of vomiting associated. She denies any diarrhea. She describes the headache is frontal. She describes photophobia and loud sounds bothering her. Patient has had headaches in the past but never officially been diagnosed with any migraines. She has a history of COPD and GERD. Patient denies any recent illness otherwise. She denies urinary symptoms. Patient currently on antibiotics for sinus infection and she is taking clarithromycin.] Physical Examination: [HEENT-PERRLA, EOMI. Cranial nerves II through XII grossly intact. TMs clear. Mucous membranes moist. No adenopathy. Cardiovascular-regular rate and rhythm without murmur or ectopy Lungs-clear to auscultation, chest wall stable without crepitus or subcu emphysema Abdomen-normoactive bowel sounds, soft, nontender, no rebound or rigidity, no peritoneal signs. Neuro tqsv-obqpka-zxyj and heel khan testing within normal limits, negative Romberg, negative pronator drift, fundi benign Extremities-intact ?4, normal range of motion, normal pulses, atraumatic. Right shoulder-patient has pain with range of motion of the glenohumeral joint. Patient neurovascular intact distally.] Test Results: [Chemistries unremarkable. Urinalysis unremarkable. Troponin is less than 0.015. EKG on arrival shows sinus rhythm with a ventricular rate of 86 bpm with no acute ST segment changes. X-rays of the right shoulder obtained were unremarkable.] Emergency Department Course and Treatment: [Patient was given a liter normal same fluid bolus as well as Reglan, Benadryl, and Toradol and her headache is now minimal rates it may be a 1 or 2 out of 10.] Treatment Plan: [Patient was given a sling for her shoulder. Patient will be given a prescription for ibuprofen as she does not will not want anything st ronger for pain. Advised to follow-up with her primary care physician within next 3 to 5 days. Patient will be given referral to orthopedics.] Disposition: [Discharged home in stable condition.] Impression: [Right shoulder pain-etiology uncertain Cephalgia-suspect migraine] This note was generated with [employer] dictation software. It may contain incorrect words, spelling, and punctuation that were not noted in review of the chart prior to signing ED Disposition - Plan for ED Patient: Referrals: Fortino Srivastava MD [Primary Care Provider] -
--- NOTE | 2019-03-12 16:08 | ED.DEP ---
ED Disposition - Plan for ED Patient: Instructions: ED Shoulder Pain UKO, ED Cephalgia Unspecified Prescriptions: Ibuprofen [Motrin] 600 mg PO TID PRN PRN #20 tab PRN Reason: Pain Referrals: Fortino Srivastava MD [Primary Care Provider] - 3-5 Days
[2019-03-12 16:30] VITALS: BP 137/71; PULSE 68; RESP 15; O2SAT 97
== END 2019-03-12 16:36 | disposition home or self-care (01) ==
LOC: ED 13:56
PROVIDERS: Emergency Provider Emergency Medicine; Family Provider Family Medicine; PCP Family Medicine
DX: M25.511 Pain in right shoulder (principal); R51 Headache; R11.2 Nausea with vomiting, unspecified; H53.149 Visual discomfort, unspecified; J32.9 Chronic sinusitis, unspecified; J44.9 Chronic obstructive pulmonary disease, unspecified; K21.9 Gastro-esophageal reflux disease without esophagitis; Z79.899 Other long term (current) drug therapy; Z72.0 Tobacco use
CPT/HCPCS: 73030; 80048; 80053; 81001; 83690; 84484; 93005; 96361; 96374; 96375; 99284; J7030; A4216

== ENCOUNTER → 2019-04-16 | Outpatient (CLI) | payer BC, SELFPAY ==
[2019-04-16 16:36] LABS: Vitamin D,25 Hydroxy 24.2 ng/mL (29.95-100.01)
[2019-04-16 16:45] LABS: Anion Gap 8 (5-15); BUN 8 mg/dL (7-18); BUN/Creat Ratio 11.3 RATIO (10-20); Calcium,Total 8.9 mg/dL (8.5-10.1); Chloride 104 mmol/L (98-107); Creatinine, Serum 0.71 mg/dL (0.55-1.02); EST Glomerular Filtration Rate 92 mL/min (>60); Est Glom Filt Rate - Afr Amer 112 mL/min (>60); Glucose 93 mg/dL (74-106); Magnesium 2.3 mg/dL (1.6-2.6); Potassium 3.7 mmol/L (3.5-5.1); Sodium Level 138 mmol/L (136-145); Thyroid Stim Hormone (TSH) 1.71 uIU/mL (0.358-3.74)
== END | disposition home or self-care (01) ==
LOC: LAB 14:43
PROVIDERS: Family Provider Family Medicine; PCP Family Medicine; Referring Provider Physician Assistant; Visit Provider Physician Assistant
DX: E03.9 Hypothyroidism, unspecified (principal); K21.0 Gastro-esophageal reflux disease with esophagitis; E55.9 Vitamin D deficiency, unspecified; Z79.899 Other long term (current) drug therapy
CPT/HCPCS: 36415; 80048; 82306; 83735; 84443

== ENCOUNTER → 2019-05-12 | Outpatient (CLI) | payer BC, SELFPAY ==
[2019-05-17 08:16] LABS: Immunoglobulin E 40 IU/mL (6-495)
[2019-05-17 14:31] LABS: Alternaria tenuis <0.10 kU/L (Class 0); Ash, White <0.10 kU/L (Class 0); Aspergillus fumigatus <0.10 kU/L (Class 0); Bermuda Grass <0.10 kU/L (Class 0); Birch <0.10 kU/L (Class 0); Black Walnut <0.10 kU/L (Class 0); Cat Hair / Dander,Stand <0.10 kU/L (Class 0); Cedar, Mountain <0.10 kU/L (Class 0); Cladosporium herbarum <0.10 kU/L (Class 0); Cockroach, American <0.10 kU/L (Class 0); Cottonwood <0.10 kU/L (Class 0); D farinae Mite <0.10 kU/L (Class 0); D pteronyssinus <0.10 kU/L (Class 0); Dog Epithelia <0.10 kU/L (Class 0); Elm, American White <0.10 kU/L (Class 0); Immunoglobulin E 41 IU/mL (6-495); Maple/Box Elder <0.10 kU/L (Class 0); Mulberry, White <0.10 kU/L (Class 0); Oak, White <0.10 kU/L (Class 0); Pecan <0.10 kU/L (Class 0); Penicillium Notatum <0.10 kU/L (Class 0); Pigweed, Rough <0.10 kU/L (Class 0); Ragweed, Short/Common <0.10 kU/L (Class 0); Russian Thistle <0.10 kU/L (Class 0); Sheep Sorrel <0.10 kU/L (Class 0); Sycamore, American <0.10 kU/L (Class 0); Timothy Grass <0.10 kU/L (Class 0)
[2019-05-18 17:01] LABS: Mouse Urine <0.10 kU/L (Class 0)
== END | disposition home or self-care (01) ==
LOC: LAB 15:31
PROVIDERS: Family Provider Family Medicine; PCP Family Medicine; Referring Provider Otolaryngology; Visit Provider Otolaryngology
DX: T78.40XA Allergy, unspecified, initial encounter (principal)
CPT/HCPCS: 36415; 82785; 86003

== ENCOUNTER → 2019-10-15 13:35 | Outpatient (CLI) | payer BC, SELFPAY ==
[2019-10-15 13:45] LABS: Bacteria 0 SEEN /hpf (None Seen); Mucous, Urine 0 SEEN /hpf (<or=2+); Red Blood Cells-Urine 0 SEEN /hpf (0-5); White Blood Cells 0 SEEN /hpf (0-5)
[2019-10-15 15:11] LABS: Color, Urine Straw (Yellow); Glucose, Dipstick Normal (Normal); Ketone-Dipstick Negative (Negative); Leukocyte Esterase-Dipstick Negative /ul (Negative); Nitrite-Dipstick Negative (Negative); Occult Blood-Urine Negative /ul (Negative); Protein-Dipstick Negative (Negative); Urine Bilirubin Dipstick Negative (Negative); Urine Clarity Clear (Clear); Urine Urobilinogen Normal (Normal); Urine pH 6.5 (5.0 - 8.0)
[2019-10-15 15:18] LABS: Squamous Epithelial Cells - UA 0-5 SEEN /hpf (5-10)
[2019-10-15 15:31] LABS: Vitamin D,25 Hydroxy 21.8 ng/mL (29.95-100.01)
[2019-10-15 15:36] LABS: ALB/GLOB Ratio 1.1 RATIO (0.9-2.4); AST(SGOT) 9 U/L (15-37); Alanine Aminotransfer ALT/SGPT 31 U/L (13-56); Albumin, Serum 3.9 g/dL (3.2-5.0); Alkaline Phosphatase 90 U/L (45-117); Anion Gap 6 (5-15); BUN 8 mg/dL (7-18); BUN/Creat Ratio 11.7 RATIO (10-20); Calcium,Total 8.8 mg/dL (8.5-10.1); Chloride 96 mmol/L (98-107); Cholesterol 219 mg/dL (200); Creatinine, Serum 0.68 mg/dL (0.55-1.02); EST Glomerular Filtration Rate 96 mL/min (>60); Est Glom Filt Rate - Afr Amer 116 mL/min (>60); Globulin 3.6 g/dL (2.2-4.2); Glucose 89 mg/dL (74-106); High Density Lipoprotein 60 mg/dL; Potassium 3.9 mmol/L (3.5-5.1); Protein, Total 7.5 g/dL (6.4-8.2); Sodium Level 129 mmol/L (136-145); Thyroid Stim Hormone (TSH) 2.11 uIU/mL (0.358-3.74); Triglycerides 99 mg/dL; Very Low Density Lipoprotein 20 mg/dL (5-40)
[2019-10-15 17:17] LABS: Hemoglobin A1c 5.5 % (4.2-6.3)
== END ==
PROVIDERS: Family Provider Family Medicine; PCP Family Medicine; Referring Provider Family Medicine; Visit Provider Family Medicine
DX: E78.5 Hyperlipidemia, unspecified (principal); R73.01 Impaired fasting glucose; E03.9 Hypothyroidism, unspecified; E55.9 Vitamin D deficiency, unspecified; Z79.899 Other long term (current) drug therapy
CPT/HCPCS: 36415; 80053; 80061; 81001; 82306; 83036; 83735; 84443

== ENCOUNTER → 2019-10-21 16:17 | Outpatient (CLI) | payer BC, SELFPAY ==
[2019-10-21 17:45] LABS: Anion Gap 4 (5-15); BUN 5 mg/dL (7-18); BUN/Creat Ratio 7.2 RATIO (10-20); Calcium,Total 8.9 mg/dL (8.5-10.1); Chloride 98 mmol/L (98-107); Creatinine, Serum 0.69 mg/dL (0.55-1.02); EST Glomerular Filtration Rate 95 mL/min (>60); Est Glom Filt Rate - Afr Amer 115 mL/min (>60); Glucose 74 mg/dL (74-106); Potassium 3.5 mmol/L (3.5-5.1); Sodium Level 130 mmol/L (136-145)
== END ==
PROVIDERS: Family Provider Family Medicine; PCP Family Medicine; Referring Provider Family Medicine; Visit Provider Family Medicine
DX: E87.1 Hypo-osmolality and hyponatremia (principal)
CPT/HCPCS: 36415; 80048

== ENCOUNTER → 2019-10-28 14:34 | Outpatient (CLI) | payer BC, SELFPAY ==
[2019-10-28 15:36] LABS: Anion Gap 6 (5-15); BUN 5 mg/dL (7-18); BUN/Creat Ratio 7.6 RATIO (10-20); Calcium,Total 9.1 mg/dL (8.5-10.1); Chloride 100 mmol/L (98-107); Creatinine, Serum 0.66 mg/dL (0.55-1.02); EST Glomerular Filtration Rate 101 mL/min (>60); Est Glom Filt Rate - Afr Amer 122 mL/min (>60); Glucose 82 mg/dL (74-106); Potassium 3.4 mmol/L (3.5-5.1); Sodium Level 133 mmol/L (136-145)
== END ==
PROVIDERS: Family Provider Family Medicine; PCP Family Medicine; Referring Provider Family Medicine; Visit Provider Family Medicine
DX: E87.1 Hypo-osmolality and hyponatremia (principal)
CPT/HCPCS: 36415; 80048

== ENCOUNTER → 2019-11-24 14:35 | Outpatient (CLI) | payer BC, SELFPAY ==
[2019-11-24 15:42] LABS: Anion Gap 5 (5-15); BUN 6 mg/dL (7-18); Calcium,Total 9.3 mg/dL (8.5-10.1); Chloride 103 mmol/L (98-107); Creatinine, Serum 0.66 mg/dL (0.55-1.02); EST Glomerular Filtration Rate 99 mL/min (>60); Est Glom Filt Rate - Afr Amer 120 mL/min (>60); Glucose 86 mg/dL (74-106); Potassium 3.7 mmol/L (3.5-5.1); Sodium Level 136 mmol/L (136-145)
== END ==
PROVIDERS: PCP Family Medicine; Referring Provider Family Medicine; Visit Provider Family Medicine
DX: E87.1 Hypo-osmolality and hyponatremia (principal)
CPT/HCPCS: 36415; 80048

== ENCOUNTER → 2020-04-11 14:49 | Outpatient (CLI) | payer BC, SELFPAY ==
[2020-04-11 15:44] LABS: Hemoglobin A1c 5.2 % (3.8-5.6)
[2020-04-11 16:03] LABS: Vitamin D,25 Hydroxy 43.5 ng/mL
[2020-04-11 16:13] LABS: Cholesterol 221 mg/dL (200); High Density Lipoprotein 53 mg/dL; Thyroid Stim Hormone (TSH) 0.25 uIU/mL (0.358-3.74); Triglycerides 71 mg/dL; Very Low Density Lipoprotein 14 mg/dL (5-40)
== END ==
PROVIDERS: PCP Family Medicine; Referring Provider Family Medicine; Visit Provider Family Medicine
DX: R73.01 Impaired fasting glucose (principal); E55.9 Vitamin D deficiency, unspecified; E03.9 Hypothyroidism, unspecified; E78.5 Hyperlipidemia, unspecified
CPT/HCPCS: 36415; 80061; 82306; 83036; 84443

== ENCOUNTER → 2020-10-16 14:40 | Outpatient (CLI) | payer BC, SELFPAY ==
[2020-10-16 17:20] LABS: Absolute Lymphocyte Count 3.89 X10^3/uL (0.83-4.51); Absolute Neutrophil Count 5.4 X10^3/uL (2.0-7.7); Basophil# 0.05 X10^3/uL; Basophil% 0.5 % (0-1); Eosinophil# 0.16 X10^3/uL; Eosinophils% 1.5 % (0-5); Hematocrit 35.8 % (37-47); Hemoglobin 11.5 g/dL (12.0-15.0); Lymphocyte # 3.89 X10^3/ul (4.0); Lymphocyte % 36.6 % (19-41); Mean Corp Hgb Conc 32.1 g/dL (32-36); Mean Corpuscular Volume 87.1 fL (81-99); Mean Platelet Vol. 9.3 fl (6.2-12.0); Monocyte# 1.04 X10^3/uL; Monocyte% 9.8 % (0-10); NRBC Flagged by Analyzer 0 % (0-5); Neutrophil # 5.43 X10^3/uL (2.7-7.7); Platelet Count 398 K/mm3 (150-450); RBC Distribution Width CV 13.3 % (11.6-14.6); RBC Distribution Width SD 42.5 fl (35.1-43.9); Red Blood Count 4.11 M/mm3 (4.2-5.4); White Blood Count 10.6 K/mm3 (4.4-11.0)
[2020-10-16 17:57] LABS: Vitamin B12 266 pg/mL (211-911)
[2020-10-16 18:02] LABS: Hemoglobin A1c 5.5 % (3.8-5.6)
[2020-10-16 18:16] LABS: Cholesterol 223 mg/dL (200); High Density Lipoprotein 57 mg/dL; Thyroid Stim Hormone (TSH) 0.58 uIU/mL (0.358-3.74); Triglycerides 102 mg/dL; Very Low Density Lipoprotein 20 mg/dL (5-40)
== END ==
PROVIDERS: PCP Family Medicine; Referring Provider Family Medicine; Visit Provider Family Medicine
DX: E78.5 Hyperlipidemia, unspecified (principal); Z79.899 Other long term (current) drug therapy; R73.01 Impaired fasting glucose; E03.9 Hypothyroidism, unspecified; K21.00 Gastro-esophageal reflux disease with esophagitis, without bleeding
CPT/HCPCS: 36415; 80061; 82607; 83036; 83735; 84443; 85025

== ENCOUNTER → 2022-05-30 | Outpatient (CLI) | payer BC, SELFPAY ==
[2022-05-30 15:23] LABS: Absolute Lymphocyte Count 2.69 X10^3/uL (0.83-4.51); Absolute Neutrophil Count 6.1 X10^3/uL (2.0-7.7); Basophil# 0.04 X10^3/uL; Basophil% 0.4 % (0-1); Eosinophil# 0.18 X10^3/uL; Eosinophils% 1.8 % (0-5); Hematocrit 37.3 % (37-47); Hemoglobin 12.4 g/dL (12.0-15.0); Lymphocyte # 2.69 X10^3/ul (0.83-4.51); Lymphocyte % 26.6 % (19-41); Mean Corp Hgb Conc 33.2 g/dL (32-36); Mean Corpuscular Hgb 27.9 pg (27.0-32.0); Mean Corpuscular Volume 83.8 fL (81-99); Mean Platelet Vol. 9.2 fl (6.2-12.0); Monocyte# 1.01 X10^3/uL; NRBC Flagged by Analyzer 0 % (0-5); Neutrophil # 6.13 X10^3/uL (2.7-7.7); Neutrophil % 60.7 % (47-70); Platelet Count 470 K/mm3 (150-450); RBC Distribution Width CV 13.4 % (11.6-14.6); RBC Distribution Width SD 40.8 fl (35.1-43.9); Red Blood Count 4.45 M/mm3 (4.2-5.4); White Blood Count 10.1 K/mm3 (4.4-11.0)
[2022-05-30 15:49] LABS: Hemoglobin A1c 5.5 % (3.8-5.6)
[2022-05-30 15:58] LABS: Vitamin B12 308 pg/mL (211-911); Vitamin D,25 Hydroxy 35.4 ng/mL
[2022-05-30 16:12] LABS: ALB/GLOB Ratio 0.9 RATIO (0.9-2.4); AST(SGOT) 16 U/L (15-37); Alanine Aminotransfer ALT/SGPT 23 U/L (13-56); Albumin, Serum 3.6 g/dL (3.2-5.0); Alkaline Phosphatase 90 U/L (45-117); Anion Gap 6 (5-15); BUN 6 mg/dL (7-18); BUN/Creat Ratio 9.6 RATIO (10-20); Calcium,Total 8.8 mg/dL (8.5-10.1); Chloride 101 mmol/L (98-107); Cholesterol 185 mg/dL (200); Creatinine, Serum 0.63 mg/dL (0.55-1.02); EST Glomerular Filtration Rate 105 mL/min (>60); Est Glom Filt Rate - Afr Amer 128 mL/min (>60); Globulin 3.8 g/dL (2.2-4.2); Glucose 72 mg/dL (74-106); High Density Lipoprotein 53 mg/dL; Magnesium 2.3 mg/dL (1.6-2.6); Potassium 3.2 mmol/L (3.5-5.1); Protein, Total 7.4 g/dL (6.4-8.2); Sodium Level 134 mmol/L (136-145); Thyroid Stim Hormone (TSH) 0.22 uIU/mL (0.358-3.74); Triglycerides 98 mg/dL; Very Low Density Lipoprotein 20 mg/dL (5-40)
== END | disposition home or self-care (01) ==
LOC: LAB 14:01
PROVIDERS: PCP Family Medicine; Visit Provider Physician Assistant
DX: E55.9 Vitamin D deficiency, unspecified (principal); Z79.899 Other long term (current) drug therapy; F17.200 Nicotine dependence, unspecified, uncomplicated; E78.5 Hyperlipidemia, unspecified; R73.01 Impaired fasting glucose; E03.9 Hypothyroidism, unspecified; E53.8 Deficiency of other specified B group vitamins
CPT/HCPCS: 36415; 80053; 80061; 82306; 82607; 83036; 83735; 84443; 85025

== ENCOUNTER → 2022-08-03 | Outpatient (CLI) | payer BC, SELFPAY ==
[2022-08-03 11:13] LABS: Absolute Neutrophil Count 5.5 X10^3/uL (2.0-7.7); Basophil# 0.04 X10^3/uL; Basophil% 0.5 % (0-1); Eosinophil# 0.13 X10^3/uL; Eosinophils% 1.5 % (0-5); Hematocrit 38.1 % (37-47); Hemoglobin 12.7 g/dL (12.0-15.0); Lymphocyte % 22.5 % (19-41); Mean Corp Hgb Conc 33.3 g/dL (32-36); Mean Corpuscular Hgb 28.3 pg (27.0-32.0); Mean Corpuscular Volume 84.9 fL (81-99); Mean Platelet Vol. 8.9 fl (6.2-12.0); Monocyte# 0.86 X10^3/uL; Monocyte% 10.2 % (0-10); NRBC Flagged by Analyzer 0 % (0-5); Neutrophil # 5.48 X10^3/uL (2.7-7.7); Neutrophil % 64.8 % (47-70); Platelet Count 404 K/mm3 (150-450); RBC Distribution Width CV 14.4 % (11.6-14.6); RBC Distribution Width SD 44.5 fl (35.1-43.9); Red Blood Count 4.49 M/mm3 (4.2-5.4); White Blood Count 8.5 K/mm3 (4.4-11.0)
[2022-08-03 11:47] LABS: Anion Gap 6 (5-15); BUN 5 mg/dL (7-18); BUN/Creat Ratio 7.4 RATIO (10-20); Calcium,Total 9.1 mg/dL (8.5-10.1); Chloride 106 mmol/L (98-107); Creatinine, Serum 0.68 mg/dL (0.55-1.02); EST Glomerular Filtration Rate 96 mL/min (>60); Est Glom Filt Rate - Afr Amer 117 mL/min (>60); Glucose 101 mg/dL (74-106); Potassium 3.7 mmol/L (3.5-5.1); Sodium Level 138 mmol/L (136-145); Thyroid Stim Hormone (TSH) 0.69 uIU/mL (0.358-3.74)
== END | disposition home or self-care (01) ==
LOC: LAB 10:58
PROVIDERS: PCP Family Medicine; Referring Provider Family Medicine; Visit Provider Family Medicine
DX: D75.839 Thrombocytosis, unspecified (principal); E87.6 Hypokalemia; E03.9 Hypothyroidism, unspecified
CPT/HCPCS: 36415; 80048; 84443; 85025

== ENCOUNTER → 2023-03-21 | Outpatient (CLI) | payer BC, SELFPAY ==
--- NOTE | 2023-03-21 09:15 | RAD_ITS ---
PROCEDURE: Air contrast Upper GI with Small Bowel Follow Through DATE OF EXAMINATION: March 21, 2023.. INDICATION: Female, 52 years old. Abdominal pain. Gastroesophageal reflux disease. FLUOROSCOPY TIME (if supplied): (2:56) minutes/seconds. 24 spot images. 65.87 mGy TECHNIQUE: Radiographic and fluoroscopic images of the distal esophagus, stomach, and entire small intestine were obtained following the oral ingestion of barium. COMPARISON: None. FINDINGS: The health and physical education teacher film of the abdomen demonstrates a normal bowel gas pattern. There are no abnormal calcifications or organomegaly demonstrated. The visualized osseous structures are normal. The esophagus is unremarkable. No mass lesion is seen. No evidence of obstruction. No evidence of gastroesophageal reflux. The stomach and duodenum are unremarkable. A single contrast small bowel follow through exam demonstrates the small bowel to have no evidence for stricture, ulceration or mass. The transit time is normal at 20 minutes. RAD/Upper GI/w Small Bowel IMPRESSION: Unremarkable air-contrast upper just series and small bowel follow-through examination. Electronically Signed: Derrick Melton MD at 14:37 EDT ,
== END | disposition home or self-care (01) ==
PROVIDERS: PCP Family Medicine; Referring Provider Internal Medicine Gastroenterology; Visit Provider Internal Medicine Gastroenterology
DX: K21.9 Gastro-esophageal reflux disease without esophagitis (principal)
CPT/HCPCS: 74246; 74248

== ENCOUNTER → 2023-04-11 | Outpatient (CLI) | payer BC, SELFPAY ==
--- NOTE | 2023-04-11 12:57 | NM_ITS ---
INDICATION: delayed gastric emptying, GERD EXAMINATION: NUCLEAR MEDICINE GASTRIC EMPTYING - NM Gastric Emptying Study (solid, liquid or both) TECHNIQUE: Radiopharmaceutical (solid portion of the exam): 1.0 mCi of Tc99m Sulfur Colloid mixed with oat meal. Oral administration. Imaging: Anterior and posterior imaging over 60 minutes. COMPARISON: Upper GI 03/21/2023 FINDINGS: Gastric emptying time with solids: T1/2 37 minutes, within normal limits. At 60 minutes, there is 80% emptying, normal . NM/Gastric Emptying Study IMPRESSION: Normal gastric emptying time with solids. Electronically Signed: Flavio Baer ([place]), at 14:28 EDT Reading Location ID and State: / [place] , Service support ,
== END | disposition home or self-care (01) ==
PROVIDERS: PCP Family Medicine; Referring Provider Internal Medicine Gastroenterology; Visit Provider Internal Medicine Gastroenterology
DX: K21.9 Gastro-esophageal reflux disease without esophagitis (principal)
CPT/HCPCS: 78264; A9541

== ENCOUNTER → 2023-06-02 | Outpatient (CLI) | payer BC, SELFPAY ==
[2023-06-02 15:22] LABS: Bacteria 0 SEEN /hpf (None Seen); Mucous, Urine 0 SEEN /hpf (<or=2+); Red Blood Cells-Urine 0 SEEN /hpf (0-5); Squamous Epithelial Cells - UA 0 SEEN /hpf (5-10); White Blood Cells 0 SEEN /hpf (0-5)
[2023-06-02 16:09] LABS: Absolute Lymphocyte Count 2.51 X10^3/uL (0.83-4.51); Absolute Neutrophil Count 3.7 X10^3/uL (2.0-7.7); Basophil# 0.05 X10^3/uL; Basophil% 0.7 % (0-1); Eosinophil# 0.14 X10^3/uL; Eosinophils% 1.9 % (0-5); Hematocrit 36.5 % (37-47); Hemoglobin 12.3 g/dL (12.0-15.0); Lymphocyte # 2.51 X10^3/ul (0.83-4.51); Lymphocyte % 34.7 % (19-41); Mean Corp Hgb Conc 33.7 g/dL (32-36); Mean Corpuscular Hgb 28.3 pg (27.0-32.0); Mean Corpuscular Volume 83.9 fL (81-99); Monocyte# 0.82 X10^3/uL; Monocyte% 11.3 % (0-10); NRBC Flagged by Analyzer 0 % (0-5); Neutrophil # 3.68 X10^3/uL (2.7-7.7); Platelet Count 380 K/mm3 (150-450); RBC Distribution Width CV 12.9 % (11.6-14.6); RBC Distribution Width SD 40.1 fl (35.1-43.9); Red Blood Count 4.35 M/mm3 (4.2-5.4); White Blood Count 7.2 K/mm3 (4.4-11.0)
[2023-06-02 16:28] LABS: Color, Urine Yellow (Yellow); Glucose, Dipstick Normal (Normal); Ketone-Dipstick Negative (Negative); Leukocyte Esterase-Dipstick 25 /ul (Negative); Nitrite-Dipstick Negative (Negative); Occult Blood-Urine Negative /ul (Negative); Protein-Dipstick 15 mg/dl (Negative); Urine Bilirubin Dipstick Negative (Negative); Urine Clarity Clear (Clear); Urine Urobilinogen Normal (Normal); Urine pH 6.5 (5.0 - 8.0)
[2023-06-02 16:42] LABS: Hemoglobin A1c 5.2 % (3.8-5.6)
[2023-06-02 16:51] LABS: AST(SGOT) 10 U/L (15-37); Alanine Aminotransfer ALT/SGPT 20 U/L (13-56); Albumin, Serum 3.6 g/dL (3.2-5.0); Alkaline Phosphatase 84 U/L (45-117); Anion Gap 5 (5-15); BUN 7 mg/dL (7-18); Calcium,Total 9.1 mg/dL (8.5-10.1); Chloride 103 mmol/L (98-107); Cholesterol 210 mg/dL (200); Creatinine, Serum 0.78 mg/dL (0.55-1.02); EST Glomerular Filtration Rate 82 mL/min (>60); Est Glom Filt Rate - Afr Amer 99 mL/min (>60); Globulin 3.7 g/dL (2.2-4.2); Glucose 88 mg/dL (74-106); High Density Lipoprotein 56 mg/dL; Magnesium 2.5 mg/dL (1.6-2.6); Potassium 3.8 mmol/L (3.5-5.1); Protein, Total 7.3 g/dL (6.4-8.2); Sodium Level 135 mmol/L (136-145); Thyroid Stim Hormone (TSH) 1.15 uIU/mL (0.358-3.74); Triglycerides 95 mg/dL; Very Low Density Lipoprotein 19 mg/dL (5-40)
[2023-06-02 20:53] LABS: Vitamin B12 228 pg/mL (211-911)
== END | disposition home or self-care (01) ==
LOC: LAB 15:03
PROVIDERS: PCP Family Medicine; Referring Provider Family Medicine; Visit Provider Family Medicine
DX: E55.9 Vitamin D deficiency, unspecified (principal); K21.00 Gastro-esophageal reflux disease with esophagitis, without bleeding; E53.8 Deficiency of other specified B group vitamins; Z79.899 Other long term (current) drug therapy; E78.5 Hyperlipidemia, unspecified; E03.9 Hypothyroidism, unspecified; R73.01 Impaired fasting glucose
CPT/HCPCS: 36415; 80053; 80061; 81001; 82306; 82607; 83036; 83735; 84443; 85025

== ENCOUNTER 2023-08-28 14:51 | Emergency (ER) | payer BC, SELFPAY ==
[2023-08-28 14:52] VITALS: BP 123/87; PULSE 73; RESP 18; TEMP 36.6; O2SAT 98; BMI 24.0
--- NOTE | 2023-08-28 16:40 | EKG12_ITS ---
Test Reason : SOB Blood Pressure : / mmHG Vent. Rate : 074 BPM Atrial Rate : 074 BPM P-R Int : 200 ms QRS Dur : 098 ms QT Int : 396 ms P-R-T Axes : 058 026 054 degrees QTc Int : 439 ms Normal sinus rhythm Normal ECG Confirmed by CONSUELO AUGUSTIN, MARIA ELENA ([id number]), story editor ZULEIMA JEFFERS ([id number]) on 09/03/2023 12:01:37 PM Referred By: Confirmed By:MARIA ELENA CORDERO MD
--- NOTE | 2023-08-28 16:40 | ED.VIS.CHEST ---
HPI History of Present Illness Chief Complaint: Chest Pain Informant: patient Onset/Context/Timing Onset: Weeks Activity at onset: gradual Timing: Continuous Quality: Positive for Tightness Location: Substernal, Right Parasternal, Left Parasternal, Right Chest and Left Chest Worsened By: Nothing Relieved By: - (Calming herself down) Associated Symptoms: Positive for Dyspnea, Cough and Acid Reflux; Negative for Nausea, Vomiting, Diaphoresis, Fever, Lightheadedness or Palpitations Narrative Narrative: Patient presents with chest pain and shortness of breath that has been getting worse over the past couple weeks. Patient states it is gradually gotten worse. Patient states her chest pain is intermittent. Patient states her shortness of breath is constant. Patient describes her chest pain as a tightness. Patient states it is diffuse across her chest. Patient states it is better when she is able to calm herself down. Patient admits to a cough but denies any sputum production. Patient denies any fevers or chills. Patient denies any nausea or vomiting. CVD Risk Factors: Positive for Smoking; Negative for Hypertension, Diabetes, Hypercholesterolemia or Family History 1' </=55 PE Risk Factors: Negative for Recent Travel/Surgery, Recent Immobilization, Prior DVT or PE, Cancer or OCP + Smoking + >/=35 PFSH PFSH Medical History Acquired hypothyroidism Allergic rhinitis Chronic cough ALEXYS II (cervical intraepithelial neoplasia II) Constipation COPD with asthma Depression Dyslipidemia Elevated fasting blood sugar Endometriosis Former smoker MURIEL (generalized anxiety disorder) Gastric hyperplasia Gastric reflux History of IBS Insomnia Osteoarthritis Shortness of breath on exertion Smoker Spastic bladder Thyroid disease Varicose veins of bilateral lower extremities with other complications Vitamin B12 deficiency Vitamin D deficiency Wears dentures Home Medications albuterol sulfate 2.5 mg/3 mL (0.083 %) solution for nebulization 2.5 mg inhalation Q4HWA.RT SOB 09/28/18 [History Last Taken Unknown] albuterol sulfate 90 mcg/actuation aerosol inhaler (ProAir HFA) 2 puff inhalation Q4H PRN PRN Sob &/Or Wheezing 09/28/18 [History Last Taken Unknown] cholecalciferol (vitamin D3) 25 mcg (1,000 unit) tablet (Vitamin D3) 2,000 unit PO DAILY 09/28/18 [History Last Taken Unknown] doxycycline monohydrate 100 mg capsule 100 mg PO BID ##20 09/28/18 [Rx Last Taken Unknown] esomeprazole magnesium 40 mg capsule,delayed release (Nexium) 40 mg PO DAILY 09/28/18 [History Last Taken Unknown] fluticasone propionate 230 mcg-salmeterol 21 mcg/actuation HFA inhaler (Advair HFA) 2 puff inhalation BID 09/28/18 [History Last Taken Unknown] hydroxyzine pamoate 25 mg capsule 25 mg PO QHS PRN anxiety 09/28/18 [History Last Taken Unknown] levothyroxine 88 mcg tablet 88 mcg PO DAILY 09/28/18 [History Last Taken Unknown] sennosides 8.6 mg tablet (senna) 8.6 mg PO DAILY 09/28/18 [History Last Taken Unknown] tiotropium bromide 2.5 mcg/actuation mist for inhalation (Spiriva Respimat) 1 cap IH DAILY 09/28/18 [History Last Taken Unknown] ibuprofen 800 mg tablet 600 mg (0.75 x 800 mg) PO TID PRN PRN Pain #20 tabs 03/12/19 [Rx Last Taken Unknown] famotidine 20 mg tablet 20 mg PO DAILY 12/27/22 [History Last Taken Unknown] fluoxetine 40 mg capsule 40 mg PO DAILY 12/27/22 [History Last Taken Unknown] ondansetron 4 mg disintegrating tablet 4 mg PO Q6H 12/27/22 [History Last Taken Unknown] Allergy/AdvReac Type Severity Reaction Status Date / Time methylprednisolone Allergy Swelling Verified 08/28/23 14:51 [From Medrol] morphine Allergy Itching Verified 08/28/23 14:51 sulfamethoxazole Allergy Itching Verified 08/28/23 14:51 [From Bactrim] trimethoprim [From Bactrim] Allergy Itching Verified 08/28/23 14:51 Family History Mother COPD (chronic obstructive pulmonary disease) Heart disease Thyroid disorder Hypertension Kidney disease Asthma Breast cancer Brother Seizures Sister Thyroid disorder Son Thyroid disorder Diabetes Asthma Hypertension Surgical History H/O total hysterectomy Social History (Updated 08/28/23 @ 18:[address] Juan Edwards DO) Smoking Status: Current every day smoker tobacco type: cigarettes alcohol intake: never ROS ROS ED Constitutional Constitutional ED: Denies chills or fever(s) Eyes Eyes: Denies blurry vision or change in vision ENT ENT ED: Denies rhinorrhea or sore throat Cardiovascular Cardiovascular: Reports chest pain; Denies palpitations Respiratory/Chest Respiratory/Chest: Reports cough and dyspnea Gastrointestinal Gastrointestinal: Denies nausea or vomiting Genitourinary Genitourinary ED: Denies dysuria or hematuria Musculoskeletal Musculoskeletal: Denies back pain or neck pain Integumentary Denies abscess or rash Neurologic Neurologic: Denies headache(s) or weakness Allergic/Immunologic Allergic/Immunologic ED: Denies mouth swelling or urticaria EXAM Physical Exam Const Vital Signs: 08/28/23 14:52 08/28/23 14:51 Temperature 98 F Temperature Source Temporal Pulse Rate 73 Respiratory Rate 18 Respiratory Effort Normal Non-Labored Blood Pressure 123/87 H Blood Pressure Mean 99 Pulse Ox 98 Oxygen Delivery Method Room Air Positive well nourished and well developed General Appearance ED: well developed and NAD HEENT Reports moist mucous membranes Neck supple and no JVD Chest Wall inspection of chest normal and palpation of chest normal Resp normal respiratory effort Auscultation: wheezes expiratory wheezes and throughout Cardio regular rate and regular rhythm GI soft to palpation, non-tender and non-distended Extremity normal to inspection General Extremety ED: Negative for edema or pulses abnormal General Extremity: Negative for edema or pulses abnormal Neuro oriented x3, CN's II-XII intact bilaterally and no sensory deficits noted Sensorium / Orientation: awake and alert Motor Exam: strength 5/5 throughout Psych mental status grossly normal MDM MDM MDM Narrative Medical decision making narrative: Torrential diagnosis includes viral illness, COPD exacerbation, COVID-19 infection, influenza infection, pneumonia, pneumothorax, and cardiac ischemia. Chest x-ray will be obtained to assess for pneumonia and pneumothorax. EKG will be obtained to assess for cardiac dysrhythmia and cardiac ischemia. CBC will be obtained to assess for leukocytosis and anemia. Basic metabolic profile will be obtained to assess for electrolyte abnormality and renal function. High-sensitivity troponin will be obtained to assess for cardiac ischemia. COVID-19 rapid antigen will be obtained to assess for COVID-19 infection. Influenza A and influenza B antigens will be obtained to assess for influenza infection. Lab Data Attestation: I reviewed the patient's lab results. Lab results narrative: CBC was reviewed and was essentially within normal limits. There is a mild anemia with a hemoglobin of 11.4 and hematocrit 34.8. Basic metabolic profile was reviewed and was essentially within normal limits. High-sensitivity troponin was reviewed and was normal. COVID-19 rapid antigen was reviewed and was positive. Influenza A and influenza B antigens were reviewed and were positive. Radiography Chest X-Ray - ED: 2 View, Read by ED Physician, Read by Radiologist and No Acute Disease Diagnostic Testing: PA and lateral chest x-ray was obtained. There are 2 views. On my independent interpretation, lung danielle are clear. There is normal cardiac silhouette. Bony thorax is normal. There is no acute process noted. Radiologist also interpreted the x-ray and agrees. EKG Initial EKG: Attestation: I personally reviewed and interpreted this EKG as follows: Interpretation: Sinus Rhythm (74) and No Acute Injury Pattern Comments: EKG was obtained. On my independent interpretation, it showed a normal sinus rhythm with a rate of 74. [place] interval, QRS interval, and QTc intervals were all normal. [place] was normal. There are no acute ST or T wave changes. Prior: Unchanged (03/12/2019) Treatment and Re-Evaluation :: Patient was given a DuoNeb aerosol here. Patient was feeling better on reevaluation. Patient was advised of her findings. Patient was instructed to follow-up with her primary care physician in 5 to 7 days. Patient was instructed to quarantine for the next 5 days. Patient was instructed to return if worse in any way. Patient understood and was agreeable with the plan. All questions were answered. Discharge Plan Triage Chief Complaint: Chest Pain ED Provider: Juan Edwards Dx/Rx/DC Orders Clinical Impression: COVID-19, Influenza A, Influenza B, COPD (chronic obstructive pulmonary disease) Prescriptions: No Action ondansetron 4 mg tablet,disintegrating 4 mg PO Q6H famotidine 20 mg tablet 20 mg PO DAILY fluoxetine 40 mg capsule 40 mg PO DAILY sennosides [senna] 8.6 MG tablet 8.6 mg PO DAILY albuterol sulfate 2.5 MG/3 ML solution for nebulization 2.5 mg inhalation Q4HWA.RT levothyroxine 88 MCG tablet 88 mcg PO DAILY esomeprazole magnesium [Nexium] 40 MG capsule 40 mg PO DAILY albuterol sulfate [ProAir HFA] 1 PUFF inhaler 2 puff inhalation Q4H PRN PRN (Reason: Sob &/Or Wheezing) hydroxyzine pamoate 25 MG capsule 25 mg PO QHS PRN (Reason: anxiety) fluticasone propion-salmeterol [Advair HFA] 1 PUFF inhaler 2 puff inhalation BID cholecalciferol (vitamin D3) [Vitamin D3] 1,000 UNIT tablet 2,000 unit PO DAILY Spiriva Respimat 4 GM mist 1 cap IH DAILY doxycycline monohydrate 100 MG capsule 100 mg PO BID Qty: 20 0RF ibuprofen 800 MG tablet 600 mg PO TID PRN PRN (Reason: Pain) Qty: 20 0RF Primary Care Provider: Fortino Srivastava Referrals: Fortino Srivastava MD [Primary Care Provider] - 5-7 Days Disposition Disposition: [facility] Discharge Date/Time: 08/28/23 18:30
--- NOTE | 2023-08-28 16:50 | RAD_ITS ---
INDICATION: Dyspnea EXAMINATION/TECHNIQUE: X-RAY - XR Chest 2 Views COMPARISON: 09/28/2018. FINDINGS: The lungs are clear. The cardiomediastinal silhouette is unremarkable. No pleural effusion or pneumothorax. No acute osseous abnormalities. RAD/Chest PA and Lateral IMPRESSION: No acute radiographic abnormalities. Electronically Signed: Dave Slaughter MD at 17:40 EST ,
[2023-08-28 16:53] LABS: Absolute Lymphocyte Count 2.49 X10^3/uL (0.83-4.51); Absolute Neutrophil Count 3.4 X10^3/uL (2.0-7.7); Basophil# 0.06 X10^3/uL; Basophil% 0.9 % (0-1); Eosinophil# 0.12 X10^3/uL; Eosinophils% 1.7 % (0-5); Hematocrit 34.8 % (37-47); Hemoglobin 11.4 g/dL (12.0-15.0); Lymphocyte # 2.49 X10^3/ul (0.83-4.51); Lymphocyte % 35.9 % (19-41); Mean Corp Hgb Conc 32.8 g/dL (32-36); Mean Corpuscular Hgb 28.6 pg (27.0-32.0); Mean Corpuscular Volume 87.2 fL (81-99); Mean Platelet Vol. 9.1 fl (6.2-12.0); Monocyte# 0.85 X10^3/uL; Monocyte% 12.2 % (0-10); NRBC Flagged by Analyzer 0 % (0-5); Platelet Count 376 K/mm3 (150-450); RBC Distribution Width CV 13.6 % (11.6-14.6); RBC Distribution Width SD 43.2 fl (35.1-43.9); Red Blood Count 3.99 M/mm3 (4.2-5.4); White Blood Count 6.9 K/mm3 (4.4-11.0)
[2023-08-28 17:06] VITALS: PULSE 80; RESP 18
[2023-08-28 17:06] LABS: Anion Gap 2 (5-15); BUN 6 mg/dL (7-18); BUN/Creat Ratio 9.3 RATIO (10-20); Calcium,Total 8.8 mg/dL (8.5-10.1); Chloride 102 mmol/L (98-107); Creatinine, Serum 0.65 mg/dL (0.55-1.02); EST Glomerular Filtration Rate 101 mL/min (>60); Est Glom Filt Rate - Afr Amer 122 mL/min (>60); Estimated Creatinine Clearance 77.34 ml/min; Glucose 101 mg/dL (74-106); Potassium 3.9 mmol/L (3.5-5.1); Sodium Level 134 mmol/L (136-145); Troponin-I HS 4 pg/mL (3.0-54.0)
[2023-08-28] MEDS: Ipratropium/Albuterol Sulfate 3 ML AMPUL.NEB INHALATION (17:06)
--- NOTE | 2023-08-28 17:33 | ED.RN ---
PT POSITIVE FLU A AND COVID.DR RAMON
[2023-08-28 18:02] VITALS: BP 129/87; PULSE 78; RESP 19; O2SAT 94
[2023-08-28 18:28] VITALS: RESP 16; O2SAT 95
== END 2023-08-28 18:30 | disposition left against medical advice (07) ==
PROVIDERS: Emergency Provider Emergency Medicine; PCP Family Medicine; Visit Provider Emergency Medicine
DX: U07.1 COVID-19 (principal); J44.9 Chronic obstructive pulmonary disease, unspecified; E78.5 Hyperlipidemia, unspecified; J10.1 Influenza due to other identified influenza virus with other respiratory manifestations; K21.9 Gastro-esophageal reflux disease without esophagitis; Z79.899 Other long term (current) drug therapy; Z79.51 Long term (current) use of inhaled steroids; E03.9 Hypothyroidism, unspecified; F32.A Depression, unspecified; Z90.710 Acquired absence of both cervix and uterus; F17.210 Nicotine dependence, cigarettes, uncomplicated
CPT/HCPCS: 71046; 80048; 84484; 85025; 87428; 93005; 94640; 99284; A4216

== ENCOUNTER → 2023-12-03 | Outpatient (CLI) | payer BC, SELFPAY ==
[2023-12-03 16:09] LABS: Vitamin B12 247 pg/mL (211-911); Vitamin D,25 Hydroxy 33.8 ng/mL
[2023-12-03 16:15] LABS: Hemoglobin A1c 5.6 % (3.8-5.6)
[2023-12-03 16:16] LABS: Cholesterol 178 mg/dL (200); High Density Lipoprotein 41 mg/dL; Thyroid Stim Hormone (TSH) 0.73 uIU/mL (0.358-3.74); Triglycerides 101 mg/dL; Very Low Density Lipoprotein 20 mg/dL (5-40)
== END | disposition home or self-care (01) ==
LOC: LAB 15:11
PROVIDERS: PCP Family Medicine; Referring Provider Family Medicine; Visit Provider Family Medicine
DX: E78.5 Hyperlipidemia, unspecified (principal); E03.9 Hypothyroidism, unspecified; E55.9 Vitamin D deficiency, unspecified; E53.8 Deficiency of other specified B group vitamins; R73.01 Impaired fasting glucose
CPT/HCPCS: 36415; 80061; 82306; 82607; 83036; 84443

== ENCOUNTER → 2023-12-09 | Outpatient (CLI) | payer BC, SELFPAY ==
[2023-12-09 11:01] LABS: Absolute Lymphocyte Count 1.44 X10^3/uL (0.83-4.51); Absolute Neutrophil Count 2.7 X10^3/uL (2.0-7.7); Basophil# 0.04 X10^3/uL; Basophil% 0.8 % (0-1); Eosinophil# 0.12 X10^3/uL; Eosinophils% 2.4 % (0-5); Hematocrit 37.7 % (37-47); Hemoglobin 12.5 g/dL (12.0-15.0); Lymphocyte # 1.44 X10^3/ul (0.83-4.51); Lymphocyte % 29.1 % (19-41); Mean Corp Hgb Conc 33.2 g/dL (32-36); Mean Corpuscular Hgb 28.2 pg (27.0-32.0); Mean Corpuscular Volume 85.1 fL (81-99); Mean Platelet Vol. 9.2 fl (6.2-12.0); Monocyte# 0.68 X10^3/uL; Monocyte% 13.7 % (0-10); NRBC Flagged by Analyzer 0 % (0-5); Neutrophil # 2.65 X10^3/uL (2.7-7.7); Neutrophil % 53.6 % (47-70); Platelet Count 452 K/mm3 (150-450); RBC Distribution Width CV 13.3 % (11.6-14.6); RBC Distribution Width SD 41.3 fl (35.1-43.9); Red Blood Count 4.43 M/mm3 (4.2-5.4)
[2023-12-09 11:43] LABS: Ferritin 27 ng/mL (8-252); Iron 71 ug/dL (50-170); Iron Binding Capacity,Total 316 ug/dL (250-450); PERCENT IRON SATURATION 22.5 % (15.0-55.0)
== END | disposition home or self-care (01) ==
PROVIDERS: PCP Family Medicine; Visit Provider Nurse Practitioner Family
DX: R53.83 Other fatigue (principal)
CPT/HCPCS: 36415; 82728; 83540; 83550; 85025

== ENCOUNTER → 2024-06-07 | Outpatient (CLI) | payer BC, SELFPAY ==
--- NOTE | 2024-06-07 07:28 | US_ITS ---
EXAM: US ABDOMEN LIMITED, RIGHT UPPER QUADRANT CLINICAL INDICATION: EPIGASTRIC PAIN TECHNIQUE: Real-time ultrasound of the right upper quadrant with image documentation. COMPARISON: No relevant prior studies available. FINDINGS: LIVER: Normal. There is normal echotexture. No focal hepatic lesion. No intrahepatic biliary ductal dilation. GALLBLADDER: Normal. No shadowing gallstone. No gallbladder wall thickening is demonstrated. No pericholecystic fluid. Negative sonographic Hughes''s sign. COMMON BILE DUCT: Unremarkable as visualized. The proximal common bile duct is normal size. PANCREAS: Unremarkable as visualized. No focal abnormality is demonstrated in the pancreas. No pancreatic ductal dilatation. RIGHT KIDNEY: Normal. There is no hydronephrosis. No shadowing calculus. No focal lesion or perinephric collection is demonstrated. US/Abdomen Limited IMPRESSION: Normal right upper quadrant ultrasound. Electronically Signed: Remi Mullen MD at 9:22 EDT ,
[2024-06-07 09:57] LABS: AST(SGOT) 18 U/L (15-37); Alanine Aminotransfer ALT/SGPT 25 U/L (13-56); Albumin, Serum 3.5 g/dL (3.2-5.0); Alkaline Phosphatase 64 U/L (45-117); Amylase 37 U/L (25-115); Anion Gap 5 (5-15); BUN 7 mg/dL (7-18); BUN/Creat Ratio 10.6 RATIO (10-20); Calcium,Total 8.6 mg/dL (8.5-10.1); Chloride 105 mmol/L (98-107); Creatinine, Serum 0.66 mg/dL (0.55-1.02); EST Glomerular Filtration Rate 99 mL/min (>60); Est Glom Filt Rate - Afr Amer 119 mL/min (>60); Globulin 3.6 g/dL (2.2-4.2); Glucose 110 mg/dL (74-106); Lipase 34 U/L (13-75); Potassium 3.9 mmol/L (3.5-5.1); Protein, Total 7.1 g/dL (6.4-8.2); Sodium Level 137 mmol/L (136-145)
== END | disposition home or self-care (01) ==
PROVIDERS: PCP Family Medicine; Referring Provider Family Medicine; Visit Provider Family Medicine
DX: R10.13 Epigastric pain (principal); E03.9 Hypothyroidism, unspecified
CPT/HCPCS: 36415; 76705; 80053; 82150; 83690; 84443

== ENCOUNTER → 2024-07-20 | Outpatient (CLI) | payer BC, SELFPAY ==
--- NOTE | 2024-07-20 09:58 | NM_ITS ---
CLINICAL: Female,54 years old. Abdominal pain. EXAMINATION: NUCLEAR MEDICINE BILIARY SCAN WITH CCK INJECTION. TECHNIQUE: Following intravenous injection of 5.7 mCi technetium mebrofenin, routine biliary scan was performed. 1.1 mcg of CCK were injected intravenously during the examination. The gallbladder ejection fraction was calculated. COMPARISON: None. FINDINGS: There is homogenous uptake of the radiopharmaceutical by the liver. There is prompt excretion into the common bile duct. The gallbladder is visualized normally at approximately 30 minutes. The common bile duct and small bowel loops are visualized before the end of the first hour. Following the slow infusion of 1.1-mcg of CCK, the gallbladder ejection fraction was calculated to be 61% at 30 minutes. Normal ejection fraction should be above 35%. NM/Hepatobilliary Img w/Pharm Int IMPRESSION: Normal hepatic uptake. Normal visualization of the gallbladder with patency of the common bile duct.. Normal gallbladder ejection. Electronically Signed: Rob Vela MD at 11:53 EDT ,
== END | disposition home or self-care (01) ==
LOC: NM 09:54
PROVIDERS: PCP Family Medicine; Referring Provider Family Medicine; Visit Provider Family Medicine
DX: R10.13 Epigastric pain (principal)
CPT/HCPCS: 78227; A9537; J2805

== ENCOUNTER → 2024-10-08 | Outpatient (CLI) | payer BC, SELFPAY ==
[2024-10-08 11:07] LABS: Absolute Lymphocyte Count 1.62 X10^3/uL (0.83-4.51); Absolute Neutrophil Count 4.1 X10^3/uL (2.0-7.7); Basophil# 0.06 X10^3/uL; Basophil% 0.9 % (0-1); Eosinophil# 0.14 X10^3/uL; Eosinophils% 2.1 % (0-5); Hematocrit 36.6 % (37-47); Hemoglobin 12.1 g/dL (12.0-15.0); Lymphocyte # 1.62 X10^3/ul (0.83-4.51); Mean Corp Hgb Conc 33.1 g/dL (32-36); Mean Corpuscular Volume 84.7 fL (81-99); Mean Platelet Vol. 8.8 fl (6.2-12.0); Monocyte# 0.77 X10^3/uL; Monocyte% 11.4 % (0-10); NRBC Flagged by Analyzer 0 % (0-5); Neutrophil # 4.09 X10^3/uL (2.7-7.7); Neutrophil % 60.6 % (47-70); Platelet Count 464 K/mm3 (150-450); RBC Distribution Width CV 13.3 % (11.6-14.6); RBC Distribution Width SD 41.2 fl (35.1-43.9); Red Blood Count 4.32 M/mm3 (4.2-5.4); White Blood Count 6.8 K/mm3 (4.4-11.0)
[2024-10-08 11:48] LABS: Cholesterol 231 mg/dL (200); High Density Lipoprotein 69 mg/dL; Triglycerides 113 mg/dL; Very Low Density Lipoprotein 23 mg/dL (5-40)
[2024-10-08 11:49] LABS: Vitamin B12 301 pg/mL (211-911); Vitamin D,25 Hydroxy 24.4 ng/mL
[2024-10-08 11:51] LABS: Hemoglobin A1c 5.3 % (3.8-5.6)
== END | disposition home or self-care (01) ==
LOC: LAB 09:58
PROVIDERS: PCP Family Medicine; Referring Provider Family Medicine; Visit Provider Family Medicine
DX: E55.9 Vitamin D deficiency, unspecified (principal); E53.8 Deficiency of other specified B group vitamins; R73.01 Impaired fasting glucose; E03.9 Hypothyroidism, unspecified; F41.1 Generalized anxiety disorder; Z79.899 Other long term (current) drug therapy
CPT/HCPCS: 36415; 80061; 82306; 82607; 83036; 85025

== ENCOUNTER → 2024-10-28 | Outpatient (CLI) | payer BC, SELFPAY ==
[2024-10-28 16:02] LABS: Basophil# 0.05 X10^3/uL; Basophil% 0.7 % (0-1); Eosinophil# 0.19 X10^3/uL; Eosinophils% 2.5 % (0-5); Hematocrit 32.5 % (37-47); Lymphocyte % 32.9 % (19-41); Mean Corp Hgb Conc 33.8 g/dL (32-36); Mean Corpuscular Hgb 28.6 pg (27.0-32.0); Mean Corpuscular Volume 84.4 fL (81-99); Mean Platelet Vol. 8.7 fl (6.2-12.0); Monocyte# 0.82 X10^3/uL; Monocyte% 10.8 % (0-10); NRBC Flagged by Analyzer 0 % (0-5); Neutrophil # 4.01 X10^3/uL (2.7-7.7); Neutrophil % 52.6 % (47-70); Platelet Count 431 K/mm3 (150-450); RBC Distribution Width CV 13.5 % (11.6-14.6); RBC Distribution Width SD 41.8 fl (35.1-43.9); Red Blood Count 3.85 M/mm3 (4.2-5.4); White Blood Count 7.6 K/mm3 (4.4-11.0)
== END | disposition home or self-care (01) ==
PROVIDERS: PCP Family Medicine; Referring Provider Nurse Practitioner Family; Visit Provider Nurse Practitioner Family
DX: D75.839 Thrombocytosis, unspecified (principal)

== ENCOUNTER → 2024-11-10 | Outpatient (CLI) | payer BC, SELFPAY ==
[2024-11-10 15:19] LABS: Absolute Neutrophil Count 3.7 X10^3/uL (2.0-7.7); Basophil# 0.04 X10^3/uL; Basophil% 0.6 % (0-1); Eosinophil# 0.14 X10^3/uL; Hemoglobin 10.8 g/dL (12.0-15.0); Lymphocyte % 32.1 % (19-41); Mean Corp Hgb Conc 33.8 g/dL (32-36); Mean Corpuscular Hgb 28.4 pg (27.0-32.0); Mean Corpuscular Volume 84.2 fL (81-99); Mean Platelet Vol. 8.3 fl (6.2-12.0); Monocyte# 0.73 X10^3/uL; Monocyte% 10.7 % (0-10); NRBC Flagged by Analyzer 0 % (0-5); Platelet Count 405 K/mm3 (150-450); RBC Distribution Width CV 13.9 % (11.6-14.6); White Blood Count 6.9 K/mm3 (4.4-11.0)
== END | disposition home or self-care (01) ==
LOC: LAB 14:45
PROVIDERS: PCP Family Medicine; Referring Provider Nurse Practitioner Family; Visit Provider Nurse Practitioner Family
DX: D64.9 Anemia, unspecified (principal)
CPT/HCPCS: 36415; 85025

== ENCOUNTER 2024-12-27 19:43 | Emergency (ER) | payer BC, SELFPAY ==
[2024-12-27 19:43] VITALS: BP 153/87; PULSE 82; RESP 14; TEMP 36.3; O2SAT 95; BMI 23.1
--- NOTE | 2024-12-27 21:42 | RAD_ITS ---
PROCEDURE: CHEST 1 VIEW (PORTABLE) 12/27/2024 REASON FOR EXAM: COUG COPD TECHNIQUE: Frontal view of the chest. COMPARISON: Chest radiograph dated 08/28/2023. FINDINGS: The heart size is normal. The lungs are clear. The bones are unremarkable. RAD/Chest 1 View (Portable) IMPRESSION: Negative Chest. Reading Location: [facility]
[2024-12-27 21:43] VITALS: PULSE 74; RESP 18; O2SAT 96
[2024-12-27] MEDS: Ondansetron 4 MG/2 ML Vial IV (21:50)
[2024-12-27] MEDS: predniSONE 20 MG Tablet 60 MG PO (21:50)
[2024-12-27] MEDS: Ketorolac 30 MG/ML Syringe IV (21:50)
[2024-12-27] MEDS: 0.9% Normal Saline (1000mL) 1,000 ML 1000 ML IV (21:50)
[2024-12-27 21:54] VITALS: PULSE 74; RESP 18
[2024-12-27] MEDS: Ipratropium/Albuterol Sulfate 3 ML AMPUL.NEB INHALATION (21:54)
--- NOTE | 2024-12-27 22:02 | EX.ED.DYSGE1 ---
HPI History of Present Illness Chief Complaint: Headache Informant: patient and family Narrative Narrative: 54-year-old female history of COPD presenting to the emergency room with chief complaint of headache and vomiting. Patient states that about a week ago she began to have intermittent frontal and occipital headache with nausea and vomiting. She states that she has developed congestion in the nose and rhinorrhea. She denies any fevers. Coughing seems to make the headache worse. She notes a sore throat. No reported rashes. PFSH PFSH Medical History Wears dentures Thyroid disease History of IBS Gastric reflux Smoker Former smoker Shortness of breath on exertion Chronic cough Vitamin D deficiency Vitamin B12 deficiency Varicose veins of bilateral lower extremities with other complications Spastic bladder Depression Osteoarthritis Insomnia MURIEL (generalized anxiety disorder) Endometriosis Elevated fasting blood sugar Dyslipidemia COPD with asthma Constipation ALEXYS II (cervical intraepithelial neoplasia II) Allergic rhinitis Acquired hypothyroidism Gastric hyperplasia Home Medications ?Medication ?Instructions ?Recorded ?Last Taken ?Type albuterol sulfate 2.5 mg/3 mL 2.5 mg inhalation Q4HWA.RT SOB 09/28/18 Unknown History (0.083 %) solution for nebulization albuterol sulfate 90 mcg/actuation 2 puff inhalation Q4H PRN PRN Sob 09/28/18 Unknown History aerosol inhaler (ProAir HFA) &/Or Wheezing cholecalciferol (vitamin D3) 25 2,000 unit PO DAILY 09/28/18 Unknown History mcg (1,000 unit) tablet (Vitamin D3) esomeprazole magnesium 40 mg 40 mg PO DAILY 09/28/18 Unknown History capsule,delayed release (Nexium) hydroxyzine pamoate 25 mg capsule 25 mg PO QHS PRN anxiety 09/28/18 Unknown History levothyroxine 88 mcg tablet 88 mcg PO DAILY 09/28/18 Unknown History sennosides 8.6 mg tablet (senna) 8.6 mg PO DAILY 09/28/18 Unknown History ibuprofen 800 mg tablet 600 mg (0.75 x 800 mg) PO TID PRN 03/12/19 Unknown Rx PRN Pain #20 tabs famotidine 20 mg tablet 20 mg PO DAILY 12/27/22 Unknown History fluoxetine 40 mg capsule 40 mg PO DAILY 12/27/22 Unknown History ondansetron 4 mg disintegrating 4 mg PO Q6H 12/27/22 Unknown History tablet dexlansoprazole 60 mg 60 mg PO DAILY 12/27/24 Unknown History capsule,biphase delayed release fluticasone 250 mcg-salmeterol 50 1 ea inhalation BID 12/27/24 Unknown History mcg/dose blistr powdr for inhalation fluticasone propionate 50 1 spray intranasal Q12H 12/27/24 Unknown History mcg/actuation nasal spray,suspension mupirocin 2 % topical ointment 1 applic topical TID 12/27/24 Unknown History tiotropium bromide 18 mcg capsule 1 cap inhalation DAILY 12/27/24 Unknown History with inhalation device (Spiriva with HandiHaler) Allergy/AdvReac Type Severity Reaction Status Date / Time methylprednisolone (From Allergy Swelling Verified 12/27/24 19:43 Medrol) morphine Allergy Itching Verified 12/27/24 19:43 sulfamethoxazole (From Allergy Itching Verified 12/27/24 19:43 Bactrim) trimethoprim (From Bactrim) Allergy Itching Verified 12/27/24 19:43 Family History Mother COPD (chronic obstructive pulmonary disease) Heart disease Thyroid disorder Hypertension Kidney disease Asthma Breast cancer Brother Seizures Sister Thyroid disorder Son Thyroid disorder Diabetes Asthma Hypertension Surgical History H/O total hysterectomy Social History Smoking Status: Heavy Smoker (>10/day) alcohol intake: never ROS ROS ED Constitutional Constitutional ED: Reports chills and sweats; Denies fever(s) or weight loss Eyes Eyes: Denies change in vision or diplopia ENT ENT ED: Reports rhinorrhea and sore throat; Denies ear pain Cardiovascular Cardiovascular: Denies chest pain, orthopnea, palpitations or racing heartbeat Respiratory/Chest Respiratory/Chest: Reports cough and dyspnea; Denies orthopnea Gastrointestinal Gastrointestinal: Reports nausea and vomiting; Denies abdominal pain or diarrhea Genitourinary Genitourinary ED: Denies dysuria, hematuria or urinary frequency Musculoskeletal Musculoskeletal: Reports myalgias and neck pain; Denies arthralgias Integumentary Denies abscess or rash Neurologic Neurologic: Reports headache(s); Denies weakness Psychiatric Psychiatric: Denies anxiety, depression, suicidal ideation or suicidal thoughts Endocrine Endocrinology: Denies polydipsia, polyphagia or polyuria Allergic/Immunologic Allergic/Immunologic ED: Denies mouth swelling, tongue swelling or urticaria EXAM Physical Exam Const Vital Signs: 12/27/24 19:43 12/27/24 20:04 12/27/24 21:43 Temperature 97.3 F L Temperature Source Temporal Pulse Rate 82 74 Respiratory Rate 14 18 Respiratory Effort Normal Respiratory Depth Normal Respiratory Pattern Normal Blood Pressure 153/87 H Blood Pressure Mean 109 Pulse Ox 95 96 Oxygen Delivery Method Room Air Room Air Room Air 12/27/24 21:54 Temperature Temperature Source Pulse Rate 74 Respiratory Rate 18 Respiratory Effort Respiratory Depth Respiratory Pattern Normal Blood Pressure Blood Pressure Mean Pulse Ox Oxygen Delivery Method Positive well nourished and well developed General Appearance ED: well developed HEENT Reports normocephalic, head/scalp atraumatic and moist mucous membranes HEENT Narrative: Turbinate edema clear rhinorrhea Eyes PERRL and EOMs intact bilaterally Neck no lymphadenopathy, supple and no JVD Resp normal respiratory effort and clear to auscultation bilaterally Auscultation: wheezes expiratory wheezes Cardio regular rate, regular rhythm and no murmurs GI normal to inspection, nondistended, normoactive bowel sounds and non-tender Palpation: soft Back/Spine no CVA tenderness and normal ROM Extremity normal to inspection General Extremety ED: Negative for edema General Extremity: Negative for edema Neuro oriented x3 and CN's II-XII intact bilaterally Sensorium / Orientation: alert Motor Exam: strength 5/5 throughout Psych mental status grossly normal Mood & Affect: Negative for depressed or tearful Skin no rashes or lesions noted and no wounds MDM MDM MDM Narrative Medical decision making narrative: Differential diagnosis includes but not limited to primary headache disorder COPD exacerbation pneumonia bronchitis viral syndrome dehydration My independent interpretation of the chest is no acute process. Patient is influenza A positive. Patient received a DuoNeb prednisone Toradol Zofran and IV fluids. Patient will be discharged home with a prescription for prednisone. Encouraged to use her albuterol. Encouragement for oral hydration. On Motrin for headache/fever. History & Record Review Discussion w/independent historian: Patient and Family Radiography Diagnostic Testing: Clinical Impression(s) from Imaging Studies Chest X-Ray 12/27/24 21:42 IMPRESSION: Negative Chest. Reading Location: [facility] Discharge Plan Triage Chief Complaint: Headache ED Provider: Francesco Alexander Dx/Rx/DC Orders Prescriptions: No Action ondansetron 4 mg tablet,disintegrating 4 mg PO Q6H famotidine 20 mg tablet 20 mg PO DAILY fluoxetine 40 mg capsule 40 mg PO DAILY sennosides [senna] 8.6 MG tablet 8.6 mg PO DAILY albuterol sulfate 2.5 MG/3 ML solution for nebulization 2.5 mg inhalation Q4HWA.RT levothyroxine 88 MCG tablet 88 mcg PO DAILY esomeprazole magnesium [Nexium] 40 MG capsule 40 mg PO DAILY albuterol sulfate [ProAir HFA] 1 PUFF inhaler 2 puff inhalation Q4H PRN PRN (Reason: Sob &/Or Wheezing) hydroxyzine pamoate 25 MG capsule 25 mg PO QHS PRN (Reason: anxiety) cholecalciferol (vitamin D3) [Vitamin D3] 1,000 UNIT tablet 2,000 unit PO DAILY ibuprofen 800 MG tablet 600 mg PO TID PRN PRN (Reason: Pain) Qty: 20 0RF fluticasone propion-salmeterol 250-50 mcg/dose blister with device 1 ea inhalation BID mupirocin 2 % ointment 1 applic topical TID fluticasone propionate 50 mcg/actuation spray,suspension 1 spray INTRANASAL Q12H tiotropium bromide [Spiriva with HandiHaler] 18 mcg capsule, w/inhalation device 1 cap inhalation DAILY dexlansoprazole 60 mg capsule,biphase delayed releas 60 mg PO DAILY Primary Care Provider: Fortino Srivastava Referrals: Fortino Srviastava MD [Primary Care Provider] - Print Language: Citizen Of [place]
[2024-12-27 22:31] VITALS: BP 139/77; PULSE 81; RESP 16; TEMP 36.3; O2SAT 100
== END 2024-12-27 22:31 | disposition home or self-care (01) ==
PROVIDERS: Emergency Provider Emergency Medicine; PCP Family Medicine; Visit Provider Emergency Medicine
DX: J10.1 Influenza due to other identified influenza virus with other respiratory manifestations (principal); J44.9 Chronic obstructive pulmonary disease, unspecified; R11.2 Nausea with vomiting, unspecified; E78.5 Hyperlipidemia, unspecified; E03.9 Hypothyroidism, unspecified; F17.200 Nicotine dependence, unspecified, uncomplicated; Z79.890 Hormone replacement therapy; Z79.899 Other long term (current) drug therapy
CPT/HCPCS: 71045; 87631; 94640; 96361; 96374; 96375; 99284; A4216; J2405

== ENCOUNTER → 2025-02-10 | Outpatient (CLI) | payer BC, SELFPAY ==
[2025-02-10 15:22] LABS: Absolute Lymphocyte Count 2.06 X10^3/uL (0.83-4.51); Absolute Neutrophil Count 3.3 X10^3/uL (2.0-7.7); Basophil# 0.04 X10^3/uL; Basophil% 0.6 % (0-1); Eosinophil# 0.11 X10^3/uL; Eosinophils% 1.8 % (0-5); Hematocrit 31.1 % (37-47); Hemoglobin 10.7 g/dL (12.0-15.0); Lymphocyte # 2.06 X10^3/ul (0.83-4.51); Lymphocyte % 33.3 % (19-41); Mean Corp Hgb Conc 34.4 g/dL (32-36); Mean Corpuscular Hgb 29.2 pg (27.0-32.0); Mean Platelet Vol. 8.6 fl (6.2-12.0); Monocyte# 0.65 X10^3/uL; Monocyte% 10.5 % (0-10); NRBC Flagged by Analyzer 0 % (0-5); Neutrophil # 3.28 X10^3/uL (2.7-7.7); Neutrophil % 53.2 % (47-70); Platelet Count 385 K/mm3 (150-450); RBC Distribution Width CV 14.6 % (11.6-14.6); Red Blood Count 3.66 M/mm3 (4.2-5.4); White Blood Count 6.2 K/mm3 (4.4-11.0)
[2025-02-10 17:13] LABS: ALB/GLOB Ratio 1.2 RATIO (0.9-2.4); AST(SGOT) 16 U/L (<=31); Alanine Aminotransfer ALT/SGPT 12 U/L (<=34); Albumin, Serum 3.8 g/dL (3.5-5.0); Alkaline Phosphatase 64 U/L (35-104); Anion Gap 12 (5-15); BUN 7 mg/dL (4-19); BUN/Creat Ratio 11.8 RATIO (10-20); Calcium,Total 8.5 mg/dL (7.6-11.0); Carbon Dioxide 21.6 mmol/L (21.0-32.0); Chloride 95 mmol/L (98-108); Cholesterol 182 mg/dL (<=200); Creatinine, Serum 0.61 mg/dL (0.70-1.20); EST Glomerular Filtration Rate 105 (>60); Ferritin 25 ng/mL (22-378); Globulin 3.2 g/dL (2.2-4.2); Glucose 90 mg/dL (70-99); High Density Lipoprotein 41 mg/dL; Low Density Lipoprotein Calc. 121 mg/dL; Sodium Level 129 mmol/L (133-145); Total Bilirubin 0.25 mg/dL (0.00-1.30); Triglycerides 99 mg/dL; Very Low Density Lipoprotein 20 mg/dL (5-40); Vitamin B12 189 pg/mL (180-914); cholesterol:hdl ratio screen 4.41
[2025-02-10 19:48] LABS: Iron 27 ug/dL (50-170); Iron Binding Capacity,Total 342 ug/dL (250-450); Iron Binding Capacity,Unsat 315 ug/dL (228-428)
== END | disposition home or self-care (01) ==
LOC: LAB 14:46
PROVIDERS: PCP Family Medicine; Referring Provider Family Medicine; Visit Provider Family Medicine
DX: E03.9 Hypothyroidism, unspecified (principal); D64.9 Anemia, unspecified; E78.5 Hyperlipidemia, unspecified; E53.8 Deficiency of other specified B group vitamins
CPT/HCPCS: 36415; 80053; 80061; 82607; 82728; 82746; 83540; 83550; 84443; 85025

== ENCOUNTER → 2025-04-12 | Outpatient (CLI) | payer BC, SELFPAY | END | disposition home or self-care (01) | LOC: LAB 14:00 | PROVIDERS: PCP Family Medicine; Referring Provider Family Medicine; Visit Provider Family Medicine | DX: E87.1 Hypo-osmolality and hyponatremia (principal) | CPT/HCPCS: 36415; 84295 ==

== ENCOUNTER → 2025-05-16 | Outpatient (CLI) | payer BC, SELFPAY | END | disposition home or self-care (01) | LOC: LAB 14:50 | PROVIDERS: PCP Family Medicine; Referring Provider Family Medicine; Visit Provider Family Medicine | DX: E03.9 Hypothyroidism, unspecified (principal) | CPT/HCPCS: 36415; 84443 ==

== ENCOUNTER → 2025-07-26 | Outpatient (CLI) | payer BC, SELFPAY | END | disposition home or self-care (01) | LOC: LAB 14:41 | PROVIDERS: PCP Family Medicine; Referring Provider Family Medicine; Visit Provider Family Medicine | DX: E03.9 Hypothyroidism, unspecified (principal) | CPT/HCPCS: 36415; 84443 ==

== ENCOUNTER → 2025-08-27 | Outpatient (CLI) | payer BC, SELFPAY ==
--- OUTSIDE RECORDS SUMMARY | 2025-08-27 11:49 | XMS RPT_ITS | CCD ---
Author Organization 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 Fortino Logan Primary Care Provider Dr. Fortino Logan Referring Provider Dr. Trey Sauceda Attending Provider [phone] Fortino Logan MD Primary Care Provider Dr. Christiano Gonzalez Attending Provider Dr. Trey Sauceda Referring Provider [phone] Dr. Fortino Logan Primary Care Provider Dr. Christiano Gonzalez Attending Provider Dr. Trey Sauceda Referring Provider Fortino Logan MD Primary Care Provider Bhavin AHUMADA.Melany MERIDA Unavailable Bailey Williamson PA-C Unavailable Fortino Logan MD Primary Care Provider CLIFFORD RHOADES Attending Unavailable CLIFFORD RHOADES Referring Unavailable FORTINO LOGAN Primary Care Unavailabl e Doreen AUGUSTIN, Dr. Freitas Primary Care Provider Dr. Fortino Logan MD Attending Provider Dr. Fortino Logan MD Referring Provider Melany Lopez Attending Provider Bhavin IP ARCHITECT-C, Melany Referring Provider Dr. Francesco Alexander DO Emergency Provider Bhavin DIRECT MAIL COORDINATOR.RN RECRUITMENT, Melany Unavailable Clay GLASERC, Bailey Unavailable Doreen AUGUSTIN, Dr. Freitas Primary Care Provider [phone] Dr. Francesco Alexander DO Attending Provider Doreen AUGUSTIN, Dr. Freitas Attending Provider Doreen AUGUSTIN, Dr. Freitas Referring Provider Doreen AUGUSTIN, Dr. Freitas Primary Care Provider ROSEANNE RHOADESE R Referring Unavailable [facility], [facility] Primary Care Unavailabl e THOMAE, CLIFFORD R Attending Unavailable [facility] Primary Care Unavailabl e THOMAE, CLIFFORD R Attending Unavailable [facility] Primary Care Unavailabl e THOMAE, CLIFFORD R Attending Unavailable DOREEN, [facility] Primary Care Unavailabl e Doreen, Fortino Primary Care Unavailable Francesco Alexander Attending Unavailable DoreenFortino Attending Unavailable Doreen, Fortino Referring Unavailable Doreen, Fortino Primary Care Unavailable Doreen, Fortino Attending Unavailable Doreen, Fortino Referring Unavailable Doreen, Fortino Primary Care Unavailable KnMelany gibbons Referring Unavailable Doreen, Fortino Primary Care Unavailable KnMelany gibbons Attending Unavailable DoreenFortino Attending Unavailable Doreen, Fortino Primary Care Unavailable Doreen, Fortino Attending Unavailable Doreen, Fortino Referring Unavailable Doreen, Fortino Primary Care Unavailable KnobleMelany Attending Unavailable KnobleMelany Referring Unavailable Doreen, Fortino Primary Care Unavailable Doreen, Fortino Primary Care Unavailable Doreen, Fortino Attending Unavailable Doreen, Fortino Referring Unavailable Doreen, Fortino Attending Unavailable Doreen, Fortino Referring Unavailable Doreen, Fortino Primary Care Unavailable DOREEN, FORTINO A Primary Care Unavailable DOREEN, FORTINO A Attending Unavailable DOREEN, FORTINO A Primary Care Unavailable DOREEN, FORTINO A Attending Unavailable DOREEN, FORTINO A Primary Care Unavailable DOREEN, FORTINO A Referring Unavailable DOREEN, FORTINO A Primary Care Unavailable O'PAMELA MONTANA Attending Unavailable DOREEN, FORTINO A Referring Unavailable DOREEN, FORTINO A Primary Care Unavailable O'RUBÉN, PAMELA Attending Unavailable DOREEN, FORTINO A Referring Unavailable DOREEN, FORTINO A Primary Care Unavailable O'RUBÉN, PAMELA Attending Unavailable DOREEN, FORTINO A Referring Unavailable DOREEN, FORTINO A Primary Care Unavailable MELANY BLANC Attending Unavailable DOREEN, FORTINO A Primary Care Unavailable O'RUBÉN, PAMELA Attending Unavailable DOREEN, FORTINO A Referring Unavailable DOREEN, FORTINO A Primary Care Unavailable DOREEN, FORTINO A Attending Unavailable DOREEN, FORTINO A Primary Care Unavailable DOREEN, FORTINO A Primary Care Unavailable DOREEN, FORTINO A Referring Unavailable DOREEN, FORTINO A Primary Care Unavailable DOREEN, FORTINO A Attending Unavailable DOREEN, FORTINO A Primary Care Unavailable DOREEN, FORTINO A Referring Unavailable DOREEN, FORTINO A Primary Care Unavailable DOREEN, FORTINO A Attending Unavailable DOREEN, FORTINO A Primary Care Unavailable MELANY BLANC Attending Unavailable DOREEN, FORTINO A Primary Care Unavailable KNMELANY GIBBONS Attending Unavailable DOREEN, FORTINO A Primary Care Unavailable Allergies Allergy Classification Reported Allergen(s) Allergy Type Date of Onset Reaction(s) Facility (20 sources) methylPREDNISolone; Translations: [METHYLPREDNISOLONE] Drug Allergy 02-01-20 17 Swelling [facility] Work Phone: (20 sources) Morphine; Translations: [MORPHINE] Drug Allergy 08-12-20 13 Itching [facility] Work Phone: (20 sources) Sertraline; Translations: [SERTRALINE] Drug Allergy 04-19-20 20 Other: See Comments, Other [facility] Work Phone: (20 sources) Sulfamethoxazole; Translations: [SULFAMETHOXAZOLE] Drug Allergy 08-12-20 13 Itching [facility] Work Phone: (20 sources) Trimethoprim; Translations: [TRIMETHOPRIM] Drug Allergy 03-12-20 19 Other: See Comments, Unknown [facility] (20 sources) Sucralfate; Translations: [SUCRALFATE] Drug Allergy 05-31-20 24 Other: See Comments, Constipation [facility] (14 sources) buPROPion; Translations: [BUPROPION] Drug Allergy 03-29-20 Other: See Comments [facility] (14 sources) busPIRone; Translations: [BUSPIRONE] Drug Allergy 03-29-20 Other: See Comments [facility] (1 source) methylPREDNISolone Drug Allergy 12-28-19 [facility] (1 source) Morphine Drug Allergy 12-28-19 [facility] (1 source) Sulfamethoxazole Drug Allergy 12-28-19 [facility] (1 source) Trimethoprim Drug Allergy 12-28-19 [facility] Medications Current Medications Medication Drug Class(es) Dates Sig (Normalized) Sig (Original) albuterol 0.83 mg/ml inhalation solution (20 sources) beta2-Adrenergic Agonist Start: 11-24-2023 take 2.5 mg by inhalation every six hours as needed albuterol 2.5 mg /3 mL (0.083 %) nebulizer solution Inhale 3 mL (2.5 mg) every 6 hours if needed. 11/24/2023 Active Start: 04-19-2020 End: 11-24-2023 albuterol 90 mcg/actuation i nhaler USE 2 INHALATIONS EVERY 6 HOURS INSTRUCTED NEEDED 11/24/2023 Active Start: 10-21-2019 End: 11-24-2023 take 2.5 mg by inhalation every six hours as needed albuterol (PROVENTIL) 2.5 mg /3 mL (0.083 %) nebulizer solution Use 3 mL via nebulizer every 6 hours as needed for wheezing/shortness of breath. Use over 5-15minutes. 300 mL 1 11/24/2023 Active Start: 09-28-2018 take 2.5 mg by inhal ation every four hours Albuterol Sulfate 2.5 MG/3 ML solution for nebulization Active 2.5 mg INHALATION EVERY 4 HOURS WHILE AWAKE September 28, 2018 1:00am SOB Start: 09-28-2018 take 1 puff(s) by in halation every four hours as needed Albuterol Sulfate (Proair Hfa (Sp)Vent Pts) 1 PUFF inhaler Active 2 PUFF INHALATION EVERY 4 HOURS NEEDED September 28, 2018 1:00am Comment on above: Use 3 mL via nebuliz er every 6 hours as needed for wheezing/shortness of breath. Use over 5-15minutes. USE 2 INHALATIONS EV FARZANA 6 HOURS INSTRUCTED NEEDED albuterol 0.833 mg/ml / ipratropium bromide 0.167 mg/ml inhalation solution (20 sources) Anticholinergic, beta2-Adrenergic Agonist Start: 023 take 3 mL by inhalation twice daily ipratropium-albu teroL (Duo-Neb) 0.5-2.5 mg/3 mL nebulizer solution Inhale 3 mL twice a day. 08/11/2023 Active Start: 08-06-2023 take 3 mL by inhalat ion twice daily ipratropium-albuterol (DUONEB) 0.5 mg-3 mg(2.5 mg base)/3 mL nebu Inhale 3 mL as instructed two times a day. 180 Each 3 08/06/2023 Active Comment on above: Inhale 3 mL as instr ucted two times a day. Albuterol Sulfate (Proair Hfa (Sp)Vent Pts) 1 PUFF inhaler (6 sources) Start: 8 take 1 puff(s) by inhalation every four hours as needed Albuterol Sulfate (Proair Hfa (Sp)Vent Pts) 1 PUFF inhaler Active 2 NMA INHALATION EVERY 4 HOURS NEEDED as needed for Sob &/Or Wheezing September 28, 2018 1:00am Start: 09-28-2018 take 1 puff(s) by in halation every four hours as needed Albuterol Sulfate (Proair Hfa (Sp)Vent Pts) 1 PUFF inhaler Active 2 PUFF INHALATION EVERY 4 HOURS NEEDED September 28, 2018 12:00am Start: 09-28-2018 take 1 puff(s) by in halation every four hours as needed Albuterol Sulfate (Proair Hfa (Sp)Vent Pts) 1 PUFF inhaler Active 2 PUFF INHALATION EVERY 4 HOURS NEEDED September 28, 2018 1:00am amoxicillin 875 mg / clavulanate 125 mg oral tablet (5 sources) Penicillin-class Antibacterial Start: 12-31-2024 End: 01-05-2025 take 1 tablet by mouth twice daily amoxicillin-clavulanate potassium (AUGMENTIN) 875-125 mg per tablet Indications: COPD with exacerbation (HCC) Take 1 tablet by mouth two times a day for 5 days. 10 tablet 12/31/2024 01/05/2025 Active Start: 08-10-2022 End: 08-15-2022 take 1 tablet by mouth twice daily amoxicillin-clavulanic acid (AUGMENTIN) 875-125 mg per tablet Take 1 tablet by mouth twice daily for 5 days. 10 tablet 0 08/10/2022 08/15/2022 Active Comment on above: Take 1 tablet by alan twice daily for 5 days. ascorbic acid 500 mg oral tablet (16 sources) Vitamin C Start: 02-21-2025 take 1 tablet by mouth every other day ascorbic acid, vitamin C, (VITAMIN C) 500 mg tablet Take 1 tablet by mouth every other day. 02/21/2025 Active busPIRone hydrochloride 15 mg oral tablet (20 sources) Start: 05-31-2024 busPIRone (BUSPAR) 15 mg tablet Take 1.5 tabs twice a day. 90 tablet 5 05/31/2024 Active Start: 04-14-2024 End: 05-31-2024 take 0.5 tablet by mouth twice daily, then take 1 tablet by mouth twice daily busPIRone (BUSPAR) 15 mg tablet Take 1/2 a tab by mouth twice a day for 2 weeks than one twice a day. 60 tablet 5 04/14/2024 05/31/2024 Discontinued cetirizine hydrochloride 10 mg oral tablet (1 source) Histamine-1 Receptor Antagonist Start: 08-10-2022 End: 08-24-2022 take 1 tablet by mouth once daily cetirizine (ZYRTEC) 10 mg tablet Take 1 tablet by mouth once daily for 14 days. 14 tablet 0 08/10/2022 08/24/2022 Active Comment on above: Take 1 tablet by alan once daily for 14 days. cholecalciferol 0.05 mg oral capsule (20 sources) Vitamin D Start: 11-23-2021 take 1 capsule by mouth once daily Cholecalciferol, Vitamin D3, 50 mcg (2,000 unit) cap Take 1 capsule by mouth once daily. 11/23/2021 Active Start: 09-28-2018 Cholecalcifero l (Vitamin D3) (Vitamin D) 1,000 UNIT tablet Active 2000 U PO DAILY September 28, 2018 1:00am Comment on above: Take 1 capsule by mo [facility] once daily. 24 hr clarithromycin 500 mg extended release oral tablet (4 sources) Macrolide Antimicrobial Start: 01-05-20 End: 01-17-20 take 1 tablet by mouth twice daily clarithromycin XL (BIAXIN XL) 500 mg 24 hr tablet Take 1 tablet by mouth two times a day for 12 days. 24 tablet 01/04/2025 01/16/2025 Active Start: 04-06-2021 End: 04-18-2021 take 1 tablet by mouth twice daily clarithromycin XL (BIAXIN XL) 500 mg 24 hr tablet Take 1 tablet by mouth twice daily for 12 days. 24 tablet 04/06/2021 04/18/2021 Dexlansoprazole 60 mg capsule,biphase delayed releas (3 sources) Start: 12-27-2024 take 1 capsule by mouth once daily Dexlansoprazole 60 mg capsule,biphase delayed releas Active 60 mg PO DAILY December 27, 2024 12:00am DULoxetine 60 mg delayed release oral capsule (20 sources) Serotonin and Norepinephrine Reuptake Inhibitor Start: 03-31-2025 take 1 capsule by mouth once daily DULoxetine (CYMBALTA) 60 mg capsule Take 1 capsule by mouth once daily. 30 capsule 5 03/31/2025 Active Start: 03-29-2025 DULoxetine (CY MBALTA) 30 mg capsule Take one tab a day for a week. Then go to taking one twice a day. 60 capsule 5 03/29/2025 Active ergocalciferol, vitamin D2, (VITAMIN D2 ORAL) (20 sources) ergocalciferol, vitamin D2, (VITAMIN D2 ORAL) Take by mouth. Active ergocalciferol, vitamin D2, (VITAMIN D2 ORAL) Take by mouth. 0 Active Comment on above: Take by mouth. famotidine 20 mg oral tablet (20 sources) Histamine-2 Receptor Antagonist Start: 01-24-2023 End: 02-23-2023 take 2 tablets by mouth once daily famotidine (PEPCID) 20 mg tablet Take 2 tablets by mouth once daily. 60 tablet 0 01/24/2023 02/23/2023 Active Start: 12-27-2022 take 1 tablet by [facility] once daily Famotidine 20 mg tablet Active 20 mg PO DAILY December 27, 2022 12:00am Start: 12-27-2022 take 20 mg by mouth twice randolph y Famotidine Active 20 MG PO TWICE A DAY December 27, 2022 12:00am Start: 05-16-2022 End: 12-08-2022 take 2 tablets by mouth once daily famotidine (PEPCID) 20 mg tablet take 2 tablets by mouth once daily 60 tablet 3 09/09/2022 12/08/2022 Active Comment on above: Take 2 tablets by mo uth once daily. take 2 tablets by mo uth once daily fluticasone propionate 0.05 mg/actuat metered dose nasal spray (20 sources) Corticosteroid Start: 12-27-2024 Fluticasone Propionate 50 mcg/actuation spray,suspension Active 1 NMA INTRANASAL Q12H December 27, 2024 12:00am Start: 07-16-2024 fluticasone (F lonase) 50 mcg/actuation nasal spray 2 sprays by Does not apply route once daily. 07/16/2024 Active Start: 10-25-2020 End: 02-08-2025 take 2 spray(s) by mouth once daily fluticasone (FLONASE) 50 mcg/actuation nasal spray Indications: COPD with asthma (HCC) Use 2 Sprays in each nostril once daily. Rinse mouth after use. 3 Each 3 11/22/2024 02/08/2025 Discontinued (Course of therapy completed) Comment on above: Use 2 Sprays in each nostril once daily. Rinse mouth after use. 60 actuat fluticasone propionate 0.25 mg/actuat / salmeterol 0.05 mg/actuat dry powder inhaler (20 sources) Corticosteroid, beta2-Adrenergic Agonist Start: End: take 1 puff(s) by inhalation twice daily WIXELA INHUB 250-50 mcg/dose inhaler Indications: COPD with asthma (HCC) Inhale 1 puff as instructed two times a day. 3 each 1 06/14/2025 Active Start: 12-27-2024 Fluticasone Pr opion-Salmeterol 250-50 mcg/dose blister with device Active 1 NMA INHALATION TWICE A DAY December 27, 2024 12:00am Start: 11-22-2024 End: 02-08-2025 take 1 puff(s) by mouth twice daily fluticasone-salmeterol (ADVAIR DISKUS) 250-50 mcg/dose inhaler Indications: COPD with asthma (HCC) Inhale 1 Puff as instructed two times a day. Rinse and gargle mouth after use with water. 3 Each 1 11/22/2024 02/08/2025 Discontinued Start: 11-22-2024 take 1 puff(s) by mo uth twice daily fluticasone-salmeterol (ADVAIR DISKUS) 250-50 mcg/dose inhaler Indications: COPD with asthma (HCC) Inhale 1 Puff as instructed two times a day. Rinse and gargle mouth after use with water. 3 Each 1 11/22/2024 Active Start: 11-22-2024 End: 11-22-2024 take 1 puff(s) by mouth twice daily fluticasone-salmeterol (ADVAIR DISKUS) 250-50 mcg/dose inhaler Indications: COPD with asthma (HCC) Inhale 1 Puff as instructed two times a day. Rinse and gargle mouth after use with water. 1 Each 3 11/22/2024 11/22/2024 Discontinued Start: 09-21-2024 End: 11-22-2024 take 1 puff(s) by mouth twice daily fluticasone-salmeterol (ADVAIR DISKUS) 250-50 mcg/dose inhaler Inhale 1 Puff as instructed two times a day. Rinse and gargle mouth after use with water. 1 Each 3 09/21/2024 11/22/2024 Discontinued Start: 09-21-2024 take 1 puff(s) by in halation twice daily fluticasone propion-salmeteroL (Advair Diskus) 250-50 mcg/dose diskus inhaler Inhale 1 puff twice a day. 09/21/2024 Active Start: 09-21-2024 take 1 puff(s) by mo uth twice daily fluticasone-salmeterol (ADVAIR DISKUS) 250-50 mcg/dose inhaler Inhale 1 Puff as instructed two times a day. Rinse and gargle mouth after use with water. 1 Each 3 09/21/2024 Active Start: 08-18-2023 End: 09-21-2024 take 1 puff(s) by mouth twice daily fluticasone-salmeterol (ADVAIR DISKUS) 250-50 mcg/dose inhaler Inhale 1 Puff as instructed two times a day. Rinse and gargle mouth after use with water. 1 Each 3 08/18/2023 09/21/2024 Discontinued Start: 08-18-2023 take 1 puff(s) by mo uth twice daily fluticasone-salmeterol (ADVAIR DISKUS) 250-50 mcg/dose inhaler Inhale 1 Puff as instructed two times a day. Rinse and gargle mouth after use with water. 1 Each 3 08/18/2023 Active Start: 08-06-2023 End: 11-04-2023 take 1 puff(s) by mouth twice daily fluticasone-salmeterol (ADVAIR DISKUS) 250-50 mcg/dose inhaler Inhale 1 Puff as instructed two times a day. Rinse and gargle mouth after use with water. 3 Each 3 08/06/2023 11/04/2023 Active Start: 09-16-2022 End: 08-06-2023 take 2 puff(s) by inhalation twice daily fluticasone-salmeterol HFA (ADVAIR HFA) 230-21 mcg/actuation inhaler Inhale 2 Puffs as instructed twice daily. 3 Each 1 04/28/2023 08/06/2023 Discontinued (Changing Therapy/Dosage Form) Start: 09-16-2022 take 2 puff(s) by in halation twice daily fluticasone-salmeterol HFA (ADVAIR HFA) 230-21 mcg/actuation inhaler Inhale 2 Puffs as instructed twice daily. 3 Each 1 09/16/2022 Active Start: 06-03-2022 End: 09-16-2022 take 2 puff(s) by inhalation twice daily fluticasone-salmeterol HFA (ADVAIR HFA) 230-21 mcg/actuation inhaler Inhale 2 Puffs as instructed twice daily. 3 Inhaler 1 06/03/2022 09/16/2022 Discontinued Start: 06-03-2022 take 2 puff(s) by in halation twice daily fluticasone-salmeterol HFA (ADVAIR HFA) 230-21 mcg/actuation inhaler Inhale 2 Puffs as instructed twice daily. 3 Inhaler 1 06/03/2022 Active Start: 11-23-2021 End: 06-03-2022 take 2 puff(s) by inhalation twice daily fluticasone-salmeterol HFA (ADVAIR HFA) 230-21 mcg/actuation inhaler Inhale 2 Puffs as instructed twice daily. 3 Inhaler 1 11/23/2021 06/03/2022 Discontinued Start: 11-23-2021 take 2 puff(s) by in halation twice daily fluticasone-salmeterol HFA (ADVAIR HFA) 230-21 mcg/actuation inhaler Inhale 2 Puffs as instructed twice daily. 3 Inhaler 1 11/23/2021 Active Start: 10-25-2020 End: 06-03-2022 take 2 puff(s) by inhalation twice daily fluticasone-salmeterol HFA (ADVAIR HFA) 230-21 mcg/actuation inhaler Inhale 2 Puffs as instructed twice daily. 3 Inhaler 1 11/23/2021 06/03/2022 Discontinued Start: 09-28-2018 End: 12-27-2024 take 1 puff(s) by inhalation twice daily Fluticasone Propion-Salmeterol (Advair Hfa 230-21 Mcg Inhaler) 1 PUFF inhaler Discontinued 2 NMA INHALATION TWICE A DAY September 28, 2018 1:00am December 27, 2024 8:05pm Start: 09-28-2018 Fluticasone Pr opion-Salmeterol (Advair Hfa 230-21 Mcg Inhaler) 1 PUFF inhaler Active 2 PUFF INHALATION TWICE A DAY September 28, 2018 12:00am Start: 09-28-2018 Fluticasone Pr opion-Salmeterol (Advair Hfa 230-21 Mcg Inhaler) 1 PUFF inhaler Active 2 PUFF INHALATION TWICE A DAY September 28, 2018 1:00am Comment on above: Inhale 2 Puffs as in structed twice daily. Inhale 1 Puff as ins tructed two times a day. Rinse and gargle mouth after use with water. ibuprofen 800 mg oral tablet (8 sources) Nonsteroidal Anti-inflammatory Drug Start: 03-12-2019 Ibuprofen 800 MG tablet Active 600 mg PO 3 TIMES DAILY NEEDED as needed for Pain 20 March 12, 2019 12:00am Start: 03-12-2019 take 600 mg by mouth three times daily as needed Ibuprofen Active 600 MG PO 3 TIMES DAILY NEEDED March 11, 2019 11:00pm levothyroxine sodium 0.1 mg oral tablet (20 sources) l-Thyroxine Start: 05-17-2025 levothyroxine (SYNTHROID) 100 mcg tablet Indications: Acquired hypothyroidism Take one tab by mouth daily.Friday -Friday and 10/14 on Friday. 90 tablet 1 05/17/2025 Active Start: 02-21-2025 levothyroxine (SYNTHROID) 100 mcg tablet Indications: Acquired hypothyroidism Take one tab by mouth daily.Friday -Friday and none on Friday. 90 tablet 1 02/21/2025 Active Start: 09-28-2018 End: 02-21-2025 take 1 tablet by mouth in the morning levothyroxine (Synthroid, Levoxyl) 88 mcg tablet Take 1 tablet (88 mcg) by mouth early in the morning.. 04/14/2024 Active Comment on above: Take one tab by mout h daily. Take one tab by mout h daily.Friday -Friday and none on Friday. mupirocin 0.02 mg/mg topical ointment (6 sources) RNA Synthetase Inhibitor Antibacterial Start: 12-27-2024 Mupirocin 2 % ointment Active 1 NMA TOPICAL THREE TIMES A DAY December 27, 2024 12:00am Start: 12-24-2024 End: 01-03-2025 mupirocin (BACTROBAN) 2 % oi ntment Indications: Skin infection Apply to affected area three times a day for 10 days. 15 g 12/24/2024 01/03/2025 Active ondansetron 4 mg disintegrating oral tablet (20 sources) Serotonin-3 Receptor Antagonist Start: 12-27-2024 take 1 tablet by mouth every six hours as needed for nausea Ondansetron 4 mg tablet,disintegrating Active 4 mg PO EVERY 6 HOURS NEEDED as needed for Nausea 15 0 December 27, 2024 12:00am Start: 10-22-2022 End: 05-31-2024 take 1 tablet by mouth every six hours as needed for nausea Ondansetron 4 mg tablet,disintegrating Active 4 mg PO EVERY 6 HOURS NEEDED as needed for Nausea 15 0 December 27, 2024 12:00am Comment on above: Take 1 tablet by alan th every 6 hours as needed for nausea/vomiting. pedi multivitamin no.203-iron (FLINTSTONES WITH IRON) 18 mg iron chew (13 sources) Start: 03-29-20 take 2 tablets by mouth once daily pedi multivitamin no.203-iron (FLINTSTONES WITH IRON) 18 mg iron chew Take 2 tablets by mouth once daily. 03/29/2025 Active predniSONE 20 mg oral tablet (20 sources) Start: 01-01-20 End: 01-08-20 take 4 tablets by mouth once daily, then take 3 tablets by mouth once daily, then take 1 tablet by mouth once daily predniSONE (DELTASONE) 10 mg tablet Indications: COPD with exacerbation (HCC) Take 4 tablets by mouth once daily for 3 days, THEN 3 tablets once daily for 2 days, THEN 1 tablet once daily for 2 days. 20 tablet 12/31/2024 01/07/2025 Active Start: 12-27-2024 predniSONE (DE LTASONE) 20 mg tablet Take 3 tabs by mouth for 3 days, then 2 tabs by mouth for 3 days, then 1 tab by mouth for 3 days and then 1/2 a tab by mouth for 4 days. 20 tablet 04/20/2025 Active Start: 09-28-2018 End: 06-23-2022 predniSONE (DELTASONE) 10 mg tablet Take 4 tabs daily for 3 days, then 2 tabs daily for 3 days, then 1 tab daily for 3 days with food. 21 tablet 0 06/14/2022 06/23/2022 Active Comment on above: Take 4 tabs daily fo r 3 days, then 2 tabs daily for 3 days, then 1 tab daily for 3 days with food. propranolol hydrochloride 10 mg oral tablet (13 sources) beta-Adrenergic Roshni Start: 03-29-2025 take 1 tablet by mouth once daily propranolol (INDERAL) 10 mg tablet Take 1 tablet by mouth once daily. 30 tablet 5 03/29/2025 Active Sennosides (Senna) 8.6 MG tablet (6 sources) Start: 09-28-2018 take 1 tablet by mouth once daily Sennosides (Senna) 8.6 MG tablet Active 8.6 mg PO DAILY September 28, 2018 1:00am Start: 09-28-2018 take 1 tablet by alan th once daily Sennosides (Senna) 8.6 MG tablet Active 8.6 MG PO DAILY September 28, 2018 12:00am Start: 09-28-2018 take 1 tablet by alan th once daily Sennosides (Senna) 8.6 MG tablet Active 8.6 MG PO DAILY September 28, 2018 1:00am sennosides, fpc 8.6 mg oral tablet (20 sources) Start: 10-25-2020 End: 02-08-2025 take 1 tablet by mouth twice daily sennosides (Senokot) 8.6 mg tablet Take 1 tablet (8.6 mg) by mouth twice a day. 05/31/2024 Active Start: 09-28-2018 take 1 tablet by alan th once daily Sennosides (Senna) 8.6 MG tablet Active 8.6 MG PO DAILY September 28, 2018 1:00am Comment on above: Take 1 tablet by alan th twice daily. sodium chloride 1000 mg oral tablet (10 sources) Start: 04-18-20 25 take 1 tablet by mouth once daily sodium chloride soluble tablet 1 g Take 1 tablet by mouth once daily. 90 tablet 3 04/18/2025 Active tiotropium 0.018 mg inhalation powder (20 sources) Anticholinergic Start: 01-09-20 End: 04-20-20 25 take 1 capsule by inhalation once daily tiotropium (Spiriva) [address] 1 capsule (18 mcg) into inhaler and inhale once daily. 01/09/2024 Active Start: 08-29-2023 End: 12-05-2023 take 1 capsule by inhalation once daily SPIRIVA WITH HANDIHALER 18 mcg inhalation capsule Indications: COPD with asthma (HCC) Inhale 1 capsule as instructed once daily. Use with handihaler. 30 capsule 5 12/05/2023 Active Start: 10-25-2020 End: 08-06-2023 take 1 capsule by inhalation once daily tiotropium (SPIRIVA WITH HANDIHALER) 18 mcg inhalation capsule INHALE THE CONTENTS OF 1 CAPSULE DAILY INSTRUCTED. USE WITH HANDIHALER 90 capsule 1 11/23/2021 06/03/2022 Discontinued Start: 09-28-2018 take 1 capsule by in halation once daily Tiotropium [place] (Spiriva Respimat) 4 GM mist Active 1 CAP IH DAILY September 28, 2018 12:00am Comment on above: INHALE THE CONTENTS OF 1 CAPSULE DAILY INSTRUCTED. USE WITH HANDIHALER Inhale 1 capsule as instructed once daily. Inhale 1 capsule as instructed once daily. Use with handihaler. Tiotropium [place] (Tiotropium [place] 18 Mcg Capsule With Inhalation Device) 18 mcg capsule, w/inhalation device (3 sources) Start: 12-28-19 take 1 capsule by inhalation once daily Tiotropium [place] (Tiotropium [place] 18 Mcg Capsule With Inhalation Device) 18 mcg capsule, w/inhalation device Active 1 NMA INHALATION DAILY December 27, 2024 12:00am vitamin b12 1 mg oral tablet (20 sources) Vitamin B12 Start: 10-25-19 take 1 tablet by mouth once daily cyanocobalamin (VITAMIN B-12) 1,000 mcg tab Take 1 tablet by mouth once daily. 10/25/2020 Active Comment on above: Take 1 tablet by alan once daily. vonoprazan 20 mg tablet (1 source) Start: 06-07-20 End: 06-27-20 take 1 tablet by mouth once daily vonoprazan 20 mg tablet Indications: Gastroesophageal reflux disease without esophagitis Take 20 mg by mouth once daily for 20 days. 20 tablet 06/07/2025 06/27/2025 Active Completed/Discontinued Medications Medication Drug Class(es) Dates Sig (Normalized) Sig (Original) benzocaine 140 mg/ml / butamben 20 mg/ml / tetracaine 20 mg/ml mucosal spray (2 sources) Janny Local Anesthetic, Standardized Chemical Allergen Start: 10-29-2024 End: 10-29-2024 Topical, As needed, Starting on Fri10/29/24 at 0803, Intraprocedure brompheniramine maleate 0.4 mg/ml / dextromethorphan hydrobromide 2 mg/ml / pseudoephedrine hydrochloride 6 mg/ml oral solution (5 sources) alpha-Adrenergic Agonist, Uncompetitive N-suvxra-[place] te Receptor Antagonist, Sigma-1 Agonist Start: 12-31-2024 End: 02-08-2025 take 5 mL by mouth four times daily as needed Brompheniramine-Pse udoeph-DM (BROMFED DM) 2-30-10 mg/5 mL syrup Indications: COPD with exacerbation (HCC) Take 5 mL by mouth four times a day as needed. 118 mL 12/31/2024 02/08/2025 Discontinued (Course of therapy completed) 12 hr buPROPion hydrochloride 100 mg extended release oral tablet (9 sources) Aminoketone Start: 02-08-2025 End: 03-29-2025 take 1 tablet by mouth once daily, then take 1 tablet by mouth twice daily buPROPion SR (WELLBUTRIN SR) 100 mg 12 hr tablet Take one tab by mouth daily for two weeks and then go to taking one tablet twice a day. 180 tablet 1 02/08/2025 03/29/2025 Discontinued (Adverse Reaction) cefadroxil 500 mg oral capsule (5 sources) Cephalosporin Antibacterial Start: 07-06-2024 End: 07-27-2024 take 1 capsule by mouth twice daily cefADROxil (DURICEF) 500 mg capsule Take 1 capsule by mouth two times a day. 20 capsule 07/06/2024 07/27/2024 Discontinued (Course of therapy completed) cyclobenzaprine hydrochloride 5 mg oral tablet (10 sources) Muscle Relaxant Start: 04-26-2022 End: 06-03-2022 take 1 tablet by mouth twice daily as needed cyclobenzaprine (FLEXERIL) 5 mg tablet Indications: Chronic bilateral low back pain without sciatica , Pain in both lower extremities Take 1 tablet by mouth twice daily as needed. 15 tablet 04/26/2022 06/03/2022 Discontinued (Course of therapy completed) Start: 10-18-2021 End: 04-26-2022 take 1 tablet by mouth three times daily cyclobenzaprine (FLEXERIL) 5 mg tablet Indications: Chronic bilateral low back pain without sciatica , Pain in both lower extremities Take 1 tablet by mouth three times daily. 30 tablet 1 10/18/2021 04/26/2022 Discontinued Comment on above: Take 1 tablet by alan th three times daily. Take 1 tablet by alan th twice daily as needed. dexlansoprazole 60 mg delayed release oral capsule (20 sources) Proton Pump Inhibitor Start: 025 End: 026 take 1 capsule by mouth once daily dexlansoprazole (Dexilant) [address] capsule Indications: Gastroesophageal reflux disease with esophagitis without hemorrhage Take 1 capsule (60 mg) by mouth once daily. Do not crush or chew. 90 capsule 3 01/14/2025 06/07/2025 Discontinued (Ineffective) diclofenac potassium 50 mg oral tablet (10 sources) Nonsteroidal Anti-inflammatory Drug Start: 021 End: 022 take 1 tablet by mouth three times daily at mealtime diclofenac potassium (CATAFLAM) 50 mg tablet Indications: OA (osteoarthrosis) Take 1 tablet by mouth three times daily. Take with food. 90 tablet 1 11/23/2021 06/03/2022 Discontinued (Adverse Reaction) Comment on above: Take 1 tablet by alan three times daily. Take with food. doxycycline monohydrate 100 mg oral capsule (8 sources) Tetracycline-class Drug Start: 018 End: take 1 capsule by mouth twice daily Doxycycline Monohydrate 100 MG capsule Discontinued 100 mg PO TWICE A DAY September 28, 2018 1:00am December 27, 2024 8:04pm esomeprazole 40 mg delayed release oral capsule (20 sources) Proton Pump Inhibitor Start: 024 End: 025 esomeprazole (NexIUM) [address] capsule Take 1 capsule (40 mg) by mouth. 01/09/2024 10/29/2024 Discontinued (Stop Taking at Discharge) Start: 08-11-2023 take 1 capsule by mo [facility] twice daily before mealtime esomeprazole (NEXIUM) 40 mg capsule Take 1 capsule by mouth two times a day before meals. 180 capsule 3 08/11/2023 Active Start: 02-29-2020 End: 08-07-2023 take 1 capsule by mouth twice daily before mealtime esomeprazole (NEXIUM) 40 mg capsule Take 1 capsule by mouth twice daily before meals. 180 capsule 1 04/28/2023 08/07/2023 Discontinued Start: 09-28-2018 take 1 capsule by mo [facility] once daily Esomeprazole Magnesium (Nexium) 40 MG capsule Active 40 mg PO DAILY September 28, 2018 1:00am Comment on above: Take 1 capsule by mo [facility] twice daily before meals. Take 1 capsule by mo [facility] two times a day before meals. 1 ml fentaNYL 0.05 mg/ml injection (4 sources) Opioid Agonist Start: 10-29-2024 End: 10-29-2024 intravenous, As needed, Starting on Fri10/29/24 at 0812, Intraprocedure ferrous sulfate (SLOW FE) 137 mg (45 mg iron) TbER (4 sources) Start: 02-21-2025 End: 03-29-2025 take 1 tablet by mouth every other day ferrous sulfate (SLOW FE) 137 mg (45 mg iron) TbER Take 1 tablet by mouth every other day. 02/21/2025 03/29/2025 Discontinued (Adverse Reaction) Start: 02-21-2025 take 1 tablet by [facility] every other day ferrous sulfate (SLOW FE) 137 mg (45 mg iron) TbER Take 1 tablet by mouth every other day. 02/21/2025 Active FLUoxetine 40 mg oral capsule (20 sources) Serotonin Reuptake Inhibitor Start: 10-08-2024 End: 2025 take 1 capsule by mouth twice daily FLUoxetine (PROzac) 40 mg capsule Take 1 capsule (40 mg) by mouth twice a day. 10/08/2024 2025 Discontinued (Ineffective) Start: 11-25-2023 End: 05-31-2024 take 1 capsule by mouth once daily FLUoxetine (PROZAC) 20 mg capsule Take 1 capsule by mouth once daily. 30 capsule 5 04/14/2024 05/31/2024 Discontinued Start: 12-27-2022 End: 10-08-2024 take 1 capsule by mouth once daily Fluoxetine 40 mg capsule Active 40 mg PO DAILY December 27, 2022 12:00am Start: 05-18-2021 End: 06-04-2023 take 1 capsule by mouth twice daily FLUoxetine HCl (PROZAC) 40 mg capsule Take 1 capsule by mouth twice daily. 60 capsule 5 11/23/2021 06/04/2023 Discontinued (Discontinued by Patient) Start: 10-25-2020 End: 04-25-2021 take 1 capsule by mouth once daily FLUoxetine HCl (PROZAC) 40 mg capsule Take 1 capsule by mouth once daily. 30 capsule 5 10/25/2020 04/25/2021 Discontinued Comment on above: Take 1 capsule by mo ut twice daily. Take 1 capsule by mo [facility] once daily. hydrOXYzine hydrochloride 25 mg oral tablet (20 sources) Antihistamine Start: 10-25-2020 End: 05-31-2024 hydrOXYzine HCl (ATARAX) 25 mg tablet Indications: Insomnia, unspecified type Take 1-2 tabs by mouth prior to bed as needed for sleep. 180 tablet 1 11/23/2021 05/31/2024 Discontinued (Discontinued by Patient) Start: 09-28-2018 take 1 capsule by mo [facility] at bedtime as needed for anxiety Hydroxyzine Pamoate 25 MG capsule Active 25 mg PO AT BEDTIME as needed for anxiety September 28, 2018 1:00am Comment on above: Take 1-2 tabs by [facility] prior to bed as needed for sleep. hyoscyamine sulfate 0.125 mg oral tablet (1 source) Start: 0 End: take 1 tablet by mouth every four hours as needed hyoscyamine (LEVSIN) 0.125 mg tablet Indications: Stomach spasm Take 1 tablet by mouth every 4 hours as needed. 30 tablet 1 03/21/2020 05/18/2021 Discontinued lidocaine hydrochloride 0.02 mg/mg topical gel (2 sources) Antiarrhythmic, Amide Local Anesthetic Start: End: 1 Application, nasal, Once, On Fri05/17/25 at 0845, For 1 dose, Preprocedure, Apply to NOSTRILS. Start: 05-17-2025 End: 05-17-2025 1 Application, nasal, Once, On Fri05/17/25 at 0845, For 1 dose, Preprocedure, Apply to NOSTRILS. metoclopramide 10 mg oral tablet (7 sources) Dopamine-2 Receptor Antagonist Start: 03-29-2025 End: 04-20-2025 metoclopramide HCl (REGLAN) 10 mg tablet Take 1 tablet by mouth four times daily. Per Gastro: Dr. Nick Wall 03/29/2025 04/20/2025 Discontinued (Course of therapy completed) Start: 03-10-2025 End: 03-10-2026 take 1 tablet by mouth four times daily metoclopramide (Reglan) 5 mg tablet Indications: Gastroesophageal reflux disease without esophagitis Take 1 tablet (5 mg) by mouth 4 times a day. 120 tablet 3 03/10/2025 2025 Discontinued (Ineffective) 2 ml midazolam 5 mg/ml injection (4 sources) Benzodiazepine Start: 10-29-2024 End: 10-29-2024 intravenous, Administer over 5 Minutes, As needed, Starting on Fri10/29/24 at 0810, Intraprocedure Start: 10-29-2024 End: 10-29-2024 intravenous, As needed, Star ting on Fri10/29/24 at 0806, Intraprocedure montelukast 10 mg oral tablet (16 sources) Leukotriene Receptor Antagonist Start: 06-03-2022 End: 12-04-2022 take 1 tablet by mouth once daily at bedtime montelukast (SINGULAIR) 10 mg tablet Take 1 tablet by mouth daily at bedtime. 90 tablet 1 06/03/2022 12/04/2022 Discontinued Start: 04-19-2020 End: 05-18-2021 take 1 tablet by mouth once daily at bedtime montelukast (SINGULAIR) 10 mg tablet Take 1 tablet by mouth daily at bedtime. 90 tablet 1 04/19/2020 05/18/2021 Discontinued (Lack of Efficacy) Comment on above: Take 1 tablet by alan th daily at bedtime. naproxen 500 mg oral tablet (8 sources) Nonsteroidal Anti-inflammatory Drug Start: 2 End: 2 take 1 tablet by mouth twice daily as needed for pain naproxen (NAPROSYN) 500 mg tablet Indications: Acute left ankle pain Take 1 tablet by mouth twice daily as needed (for pain/inflammation). Take with food. 30 tablet 05/30/2022 06/29/2022 Comment on above: Take 1 tablet by alan th twice daily as needed (for pain/inflammation). Take with food. oxaprozin 600 mg oral tablet (19 sources) Nonsteroidal Anti-inflammatory Drug Start: 3 End: 4 take 2 tablets by mouth once daily oxaprozin (DAYPRO) 600 mg tablet Take 2 tablets by mouth once daily. 30 tablet 1 07/03/2023 05/31/2024 Discontinued (Discontinued by Patient) Comment on above: Take 2 tablets by mo uth once daily. rOPINIRole 0.5 mg oral tablet (5 sources) Nonergot Dopamine Agonist Start: 3 End: 3 rOPINIRole (REQUIP) 0.5 mg tablet Take one in the evening for two weeks then gpo to taking two in the evening. 60 tablet 5 06/04/2023 07/03/2023 Discontinued (Lack of Efficacy) Comment on above: Take one in the even ing for two weeks then gpo to taking two in the evening. Take 1 tab in the ev ening for two weeks then go to taking one in the evening. sucralfate 1000 mg oral tablet (4 sources) Aluminum Complex Start: 4 End: 4 sucralfate (CARAFATE) 1 gram tablet Take one tab twice a day at lunch and before bed. 60 tablet 5 04/14/2024 05/31/2024 Discontinued (Discontinued by Patient) Start: 08-07-2021 End: 04-14-2024 take 1 tablet by mouth four times daily sucralfate (CARAFATE) 1 gram tablet Take 1 tablet by mouth four times daily. 120 tablet 2 08/07/2021 04/14/2024 Discontinued Start: 05-29-2021 End: 11-23-2021 sucralfate (CARAFATE) 1 gram tablet Take one tab before lunch and before bed. 60 tablet 3 05/29/2021 11/23/2021 Discontinued (Discontinued by Patient) 24 hr tolterodine tartrate 4 mg extended release oral capsule (20 sources) Cholinergic Muscarinic Antagonist Start: 09-28-2018 End: 05-31-2024 take 1 capsule by mouth once daily tolterodine ER (DETROL LA) 4 mg 24 hr capsule Indications: Urinary frequency Take 1 capsule by mouth once daily. 30 capsule 01/16/2023 05/31/2024 Discontinued (Discontinued by Patient) Comment on above: Take 1 capsule by mo uth once daily. Problems Active Problems Problem Classification Problem Date Documented Date Episodic/Chronic Adjustment disorders (20 sources) Reactive depression (situational); Translations: [Adjustment disorder with depressed mood] Onset: 04-19-2020 04-19-2020 Chronic Anxiety disorders (20 sources) Generalized anxiety disorder; Translations: [Generalized anxiety disorder] Onset: 05-18-2021 05-18-2021 Chronic Chronic obstructive pulmonary disease and bronchiectasis (20 sources) Asthma-chronic obstructive pulmonary disease overlap syndrome; Translations: [Chronic obstructive pulmonary disease, unspecified] 04-12-2014 Chronic Chronic obstructive pulmonary disease and bronchiectasis (1 source) Chronic obstructive pulmonary disease and bronchiectasis; Translations: [COPD with asthma (HCC)] Onset: 04-12-2014 Deficiency and other anemia (1 source) Hemoglobin low; Translations: [Anemia, unspecified] 11-01-2024 Episodic Deficiency and other anemia (1 source) Anemia; Translations: [Anemia, unspecified] 02-08-2025 Episodic Disorders of lipid metabolism (20 sources) Dyslipidemia; Translations: [Hyperlipidemia, unspecified] Onset: 04-22-2018 04-22-2018 Chronic Esophageal disorders (20 sources) Gastro-esophageal reflux disease with esophagitis; Translations: [Gastro-esophageal reflux disease with esophagitis] Onset: 10-18-2016 10-22-2017 Chronic Esophageal disorders (3 sources) Esophageal disorders; Translations: [Gastro-esophageal reflux disease with esophagitis, without bleeding] Onset: 12-04-2022 Genitourinary symptoms and ill-defined conditions (2 sources) Increased frequency of urination; Translations: [Frequency of micturition] Episodic Headache; including migraine (17 sources) Headache; Translations: [Headache] Onset: 03-29-2025 12-27-2024 Episodic Headache; including migraine (2 sources) Headache; including migraine; Translations: [Headache, unspecified] Onset: 01-04-2025 Immunizations and screening for infectious disease (1 source) Suspected disease caused by 2019-nCoV; Translations: [Suspected COVID-19 virus infection] 07-06-2024 Episodic Influenza (11 sources) Influenza due to Influenza A virus; Translations: [Influenza due to other identified influenza virus with other respiratory manifestations] 09-05-2023 Episodic Malaise and fatigue (1 source) Fatigue; Translations: [Other fatigue] 12-05-2023 Episodic Miscellaneous mental health disorders (6 sources) Primary insomnia; Translations: [Primary insomnia] Onset: 04-12-2014 Chronic Nausea and vomiting (1 source) Nausea; Translations: [Nausea] Episodic Neoplasms of unspecified nature or uncertain behavior (1 source) Thrombocytosis; Translations: [Thrombocytosis] Onset: 02-21-2025 Chronic Nutritional deficiencies (20 sources) Vitamin D deficiency; Translations: [Vitamin D deficiency, unspecified] Onset: 10-08-2021 10-08-2021 Chronic Osteoarthritis (20 sources) Osteoarthritis; Translations: [Unspecified osteoarthritis, unspecified site] Onset: 05-18-2021 11-23-2021 Chronic Other circulatory disease (5 sources) Elevated blood-pressure reading without diagnosis of hypertension; Translations: [Elevated blood-pressure reading, without diagnosis of hypertension] Episodic Other connective tissue disease (1 source) Pain in bilateral legs; Translations: [Pain in right leg] Episodic Other connective tissue disease (2 sources) Pain in left lower limb; Translations: [Pain in left leg] Episodic Other connective tissue disease (1 source) Pain in right foot; Translations: [Pain in right foot] 08-20-2021 Episodic Other diseases of bladder and urethra (20 sources) Spasm of bladder; Translations: [Other specified disorders of bladder] Onset: 10-23-2018 10-23-2018 Chronic Other inflammatory condition of skin (1 source) Pruritus, unspecified; Translations: [Itchy skin] Onset: 08-15-2025 Episodic Other lower respiratory disease (1 source) Persistent cough; Translations: [Persistent cough] 04-07-2021 Episodic Other lower respiratory disease (2 sources) Abnormal breath sounds; Translations: [Other abnormalities of breathing] 01-04-2025 Episodic Other lower respiratory disease (1 source) Snoring; Translations: [Snoring] 02-08-2025 Episodic Other lower respiratory disease (1 source) Apnea; Translations: [Apnea, not elsewhere classified] 02-08-2025 Episodic Other non-traumatic joint disorders (2 sources) Acute ankle pain; Translations: [Pain in left ankle and joints of left foot] Episodic Other non-traumatic joint disorders (1 source) Shoulder pain; Translations: [Pain in right shoulder] Episodic Other upper respiratory disease (20 sources) Allergic rhinitis; Translations: [Allergic rhinitis, unspecified] Onset: 09-03-2013 04-12-2014 Chronic Other upper respiratory infections (2 sources) Bacterial sinusitis; Translations: [Chronic sinusitis, unspecified] 07-06-2024 Chronic Other upper respiratory infections (1 source) Acute upper respiratory infection; Translations: [Acute upper respiratory infection, unspecified] 12-24-2024 Episodic Residual codes; unclassified (1 source) Hypersomnia; Translations: [Hypersomnia, unspecified] 02-08-2025 Chronic Residual codes; unclassified (1 source) Hypersomnia, unspecified; Translations: [Hypersomnolence] Onset: 02-08-2025 Chronic Residual codes; unclassified (20 sources) Postmenopausal state; Translations: [Asymptomatic menopausal state] 04-17-2016 Episodic Residual codes; unclassified (1 source) Tobacco user; Translations: [Tobacco use] Episodic Skin and subcutaneous tissue infections (1 source) Infection of skin; Translations: [Local infection of the skin and subcutaneous tissue, unspecified] 12-24-2024 Episodic Substance-related disorders (20 sources) Smoker; Translations: [Nicotine dependence, unspecified, uncomplicated] Onset: 08-12-2013 10-25-2020 Chronic Thyroid disorders (20 sources) Acquired hypothyroidism; Translations: [Hypothyroidism, unspecified] Onset: 04-25-2015 11-02-2017 Chronic Viral infection (4 sources) Disease caused by 2019-nCoV; Translations: [COVID-19] 08-28-2023 Episodic Past or Other Problems Problem Classification Problem Date Documented Da te Episodic/Chronic Abdominal pain (20 sources) Bilateral pain of inguinal region; Translations: [Right lower quadrant pain] Onset: 06-04-2023 06-04-2023 Episodic Deficiency and other anemia (18 sources) Iron deficiency anemia; Translations: [Iron deficiency anemia, unspecified] Onset: 02-21-2025 02-21-2025 Episodic Deficiency and other anemia (2 sources) Anemia, unspecified; Translations: [Anemia, unspecified] Onset: 11-26-2024 Episodic Diabetes mellitus without complication (20 sources) Hyperglycemia; Translations: [Impaired fasting glucose] Onset: 04-18-2017 04-18-2017 Episodic Fluid and electrolyte disorders (15 sources) Hypokalemia; Translations: [Hypokalemia] Onset: 03-29-2025 Episodic Gastritis and duodenitis (20 sources) Hypertrophic gastritis; Translations: [Other gastritis without bleeding] Onset: 10-18-2016 04-18-2017 Episodic Neoplasms of unspecified nature or uncertain behavior (18 sources) Thrombocytosis; Translations: [Thrombocytosis] Onset: 02-21-2025 Episodic Nutritional deficiencies (20 sources) Cobalamin deficiency; Translations: [Deficiency of other specified B group vitamins] Onset: 10-25-2020 10-25-2020 Episodic Other aftercare (20 sources) Patient encounter status; Translations: [Other termite treater helper (current) drug therapy] Onset: 10-18-2016 Resolved: 07-27-2024 04-19-2020 Episodic Other aftercare (7 sources) Drug therapy finding; Translations: [Other fdc (current) drug therapy] Onset: 04-19-2020 04-19-2020 Episodic Other aftercare (1 source) Other termite treater helper (current) drug therapy; Translations: [Medication management] Onset: 04-19-2020 Episodic Other circulatory disease (2 sources) Elevated blood-pressure reading, without diagnosis of hypertension; Translations: [Elevated blood pressure reading without diagnosis of hypertension] Onset: 08-17-2024 Episodic Other gastrointestinal disorders (20 sources) Constipation; Translations: [Constipation, unspecified] Onset: 08-23-2015 04-17-2016 Episodic Other gastrointestinal disorders (1 source) Other constipation; Translations: [Other constipation] Onset: 04-17-2016 Episodic Other lower respiratory disease (1 source) Snoring; Translations: [Snores] Onset: 02-08-2025 Episodic Other lower respiratory disease (1 source) Apnea, not elsewhere classified; Translations: [Witnessed episode of apnea] Onset: 02-08-2025 Episodic Other lower respiratory disease (1 source) Other abnormalities of breathing; Translations: [Abnormal breath sounds] Onset: 01-04-2025 Episodic Other non-traumatic joint disorders (20 sources) Hip pain; Translations: [Pain in right hip] Onset: 06-04-2023 06-04-2023 Episodic Other screening for suspected conditions (not mental disorders or infectious disease) (2 sources) Other specified abnormal findings of blood chemistry; Translations: [Encounter for screening mammogram for malignant neoplasm of breast] Onset: 04-22-2018 Episodic Residual codes; unclassified (20 sources) Insomnia; Translations: [Insomnia, unspecified] Onset: 04-12-2014 04-12-2014 Episodic Spondylosis; intervertebral disc disorders; other back problems (20 sources) Chronic low back pain; Translations: [Lumbago with sciatica, unspecified side] Onset: 11-19-2021 11-19-2021 Episodic Thyroid disorders (5 sources) Pain in thyroid; Translations: [Other specified disorders of thyroid] Onset: 02-08-2025 Episodic Varicose veins of lower extremity (20 sources) Varicose veins of lower extremity; Translations: [Varicose veins of bilateral lower extremities with other complications] Onset: 04-19-2020 05-18-2021 Episodic Results Test Name Value Interpretation Reference Range Facility [facility] 08-15-2025 [facility] Office Visit ([facility] ) ----- BRENDA VILLALOBOS ([id number]) 1970 F Date Time Provider Department 08/15/25 2:40 PM [facility] visit today, we recorded the following information about you: Pulse Respiration Blood pressure Weight 80/minute 18/minute 122/82 62.1 kg Height 1.588 m Fortino Logan MD 08/15/2025 8:24 PM Signed Chief Complaint Patient presents with: Well Adult HPI Brenda Villalobos is a 55 year old female who presents here today for a Physical and chronic health issues.. Patient with COPD, dyslipidemia, hypothyroidism, insomnia, elevated fasting blood sugar, smoker, GERD, MURIEL, Depression, Vit D def and Vit B12 def as well as those reviewed and addressed below and in ROS. Brenda reports persistent acid reflux and pruritus. She was recently prescribed Voquezna 10 mg by her photoengraving machine operator/tender for GERD, which she has been taking for over a month. Initially, she was given a 20 mg sample, which effectively managed her symptoms, but the 10 mg dose has not provided the same relief. She experiences both acid regurgitation and a burning sensation, which she describes as so bad I can't see straight. She has contacted her photoengraving machine operator/tender's office multiple times without receiving a satisfactory response and has decided to continue the medication until her symptoms worsen. the epigastric pain she had been having though has resolved. She also reports severe pruritus that began approximately 2 months ago, describing it as feeling like little pricks or something. The pruritus is generalized, affecting her head, face, and back of her legs, and is not alleviated by lotion. She denies any visible rash and has not changed any detergents, lotions, or shampoos. She has not started any new medications other than Voquezna and has even discontinued it for about a week to see if the itching would subside, but it did not. She has a history of dry skin but states, this don't feel like no dry skin. Brenda has a history of hypothyroidism and is currently on a lower dose of levothyroxine. She is also taking B12 and vitamin D supplements. She denies any recent surgeries or new health issues in her blood relatives. She has not had a mammogram since 2019 due to a negative experience with the scheduling process. She denies fevers, cephalalgia, changes in hearing or vision, issues with her nose or throat, lumps or swelling in her neck, increased wheezing, dyspnea, hemoptysis, chest pain, palpitations, or leg swelling. She also denies nausea, emesis, diarrhea, hematochezia, hematuria, dysuria, or urinary urgency. She reports increased urinary frequency, which she attributes to high water intake. She denies unusual muscle or joint aches, skin lesions, rashes, or sores, easy bruising or bleeding, changes in heat or cold tolerance, increased thirst, syncope, seizures, or tremors. Brenda has a history of anxiety and depression, for which she was taking duloxetine 60 mg BID. She discontinued the medication cold without consulting her healthcare provider, fearing potential interactions with Voquezna. She denies experiencing lightheadedness or dizziness after discontinuation and reports only one episode of anxiety since from her significant other. She feels her depression is improving and does not believe she needs to resume duloxetine. She denies alcohol consumption and has reduced her smoking to 2-3 cigarettes per day. Past medical history, appointments, medications, allergies reviewed. 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 Has been on omeprazole, pantoprazole and prevacid with no relief of symptoms. Nexium has been helpful and dexalant Headache, unspecified headache type 03/29/2025 Hyponatremia 04/18/2025 On 04/26/2025 give patient order to re[eat sodium in a month. Placed on 1 g sodium a day. Insomnia 04/12/2014 Iron deficiency anemia 02/21/2025 OA (osteoarthrosis) 05/18/2021 Post-menopausal Situational depression 04/19/2020 Smoker 08/12/2013 Started at the age of 11 up to 1.5 PPD Spastic bladder 10/23/2018 Thrombocytosis 02/21/2025 Varicose veins of bilateral lower extremities with other complications 04/19/2020 bleeding at times Vitamin B12 deficiency 10/25/2020 (more content not included)... Normal [facility] Thyroid Stim Hormone (TSH)on 07-26-2025 TSH 0.080 uIU/mL Low 0.300-4.20 0 [facility] Comment on above: Performed By: #### L 506.1000, L503.0105, L501.9985, L500.4100, L100.0100 #### [facility] [address] [place], [place], [address] CNTHERAPYon 06-21-2025 CNTHERAPY OT/PT/Speech Visit ( PTWS) ----- BRENDA VILLALOBOS ([id number]) 1970 F Date Time Provider Department 06/21/25 3:00 PM PAMELA SORENSON PTWS Date Time Provider Department Center 06/21/2025 3:00 PM [id number] SORENSON PTWS Ton [place] Reason for Visit: PT Discharge [752] Primary Visit Diagnosis:Acute bilateral low back pain with bilateral sciatica [M54.42, M54.41] Allergies As of Date: 06/21/2025 Noted Allergy Reaction MEDROL DOSE PACK (METHYLPREDNISOL*02/01/20 17 7 - Swelling Comments: Swelling of throat BACTRIM (SULFAMETHOXAZOLE) 08/12/2013 9 - Itching BUSPAR (BUSPIRONE) 03/29/2025 14 - Other: See Comments Comments: Did not work for anxiety CARAFATE (SUCRALFATE) 05/31/2024 14 - Other: See Comments Comments: Made her constipated MORPHINE 08/12/2013 9 - Itching TRIMETHOPRIM 03/12/2019 14 - Other: See Comments 16 - Unknown WELLBUTRIN (BUPROPION) 03/29/2025 14 - Other: See Comments Comments: Constipation. ZOLOFT (SERTRALINE) 04/19/2020 14 - Other: See Comments Comments: Chest felt heavy. Date Reviewed: 04/20/2025 Reviewed by: Fortino Logan MD - Fully Assessed Prescriptions as of 06/21/2025 - WIXELA INHUB 250-50 mcg/dose inhaler Inhale 1 puff as instructed two times a day. - levothyroxine (SYNTHROID) 100 mcg tablet Take one tab by mouth daily.Friday -Friday and 1/2 on Friday. - predniSONE (DELTASONE) 20 mg tablet Take 3 tabs by mouth for 3 days, then 2 tabs by mouth for 3 days, then 1 tab by mouth for 3 days and then 1/2 a tab by mouth for 4 days. - SPIRIVA WITH HANDIHALER 18 mcg inhalation capsule Inhale 1 capsule as instructed once daily. - sodium chloride soluble tablet 1 g Take 1 tablet by mouth once daily. - DULoxetine (CYMBALTA) 60 mg capsule Take 1 capsule by mouth once daily. - pedi multivitamin no.203-iron (FLINTSTONES WITH IRON) 18 mg iron chew Take 2 tablets by mouth once daily. - DULoxetine (CYMBALTA) 30 mg capsule Take one tab a day for a week. Then go to taking one twice a day. - propranolol (INDERAL) 10 mg tablet Take 1 tablet by mouth once daily. - ascorbic acid, vitamin C, (VITAMIN C) 500 mg tablet Take 1 tablet by mouth every other day. - SENOKOT 8.6 mg tab Take 1 tablet by mouth two times a day. - Dexlansoprazole 60 mg CpDM Take 60 mg by mouth one time only. - albuterol (PROVENTIL) 2.5 mg /3 mL (0.083 %) nebulizer solution Use 3 mL via nebulizer every 6 hours as needed for wheezing/shortness of breath. Use over 5-15minutes. - albuterol HFA (PROAIR HFA) 90 mcg/actuation inhaler USE 2 INHALATIONS EVERY 6 HOURS INSTRUCTED NEEDED - ipratropium-albuterol (DUONEB) 0.5 mg-3 mg(2.5 mg base)/3 mL nebu Inhale 3 mL as instructed two times a day. - Cholecalciferol, Vitamin D3, 50 mcg (2,000 unit) cap Take 1 capsule by mouth once daily. - cyanocobalamin (VITAMIN B-12) 1,000 mcg tab Take 1 tablet by mouth once daily. - ergocalciferol, vitamin D2, (VITAMIN D2 ORAL) Take by mouth. Normal [facility] CNTHERAPYon 06-14-2025 CNTHERAPY OT/PT/Speech Visit ( PTWS) ----- BRENDA VILLALOBOS ([id number]) 1970 F Date Time Provider Department 06/14/25 3:00 PM PAMELA SOERNSON PTAPOLINAR Date Time Provider Department Center 06/14/2025 3:00 PM [id number] SORENSON PTAPOLINAR [place] Reason for Visit: Physical Therapy [503] Primary Visit Diagnosis:Acute bilateral low back pain with bilateral sciatica [M54.42, M54.41] Allergies As of Date: 06/14/2025 Noted Allergy Reaction MEDROL DOSE PACK (METHYLPREDNISOL*02/01/20 17 7 - Swelling Comments: Swelling of throat BACTRIM (SULFAMETHOXAZOLE) 08/12/2013 9 - Itching BUSPAR (BUSPIRONE) 03/29/2025 14 - Other: See Comments Comments: Did not work for anxiety CARAFATE (SUCRALFATE) 05/31/2024 14 - Other: See Comments Comments: Made her constipated MORPHINE 08/12/2013 9 - Itching TRIMETHOPRIM 03/12/2019 14 - Other: See Comments 16 - Unknown WELLBUTRIN (BUPROPION) 03/29/2025 14 - Other: See Comments Comments: Constipation. ZOLOFT (SERTRALINE) 04/19/2020 14 - Other: See Comments Comments: Chest felt heavy. Date Reviewed: 04/20/2025 Reviewed by: Fortino Logan MD - Fully Assessed Prescriptions as of 06/14/2025 - WIXELA INHUB 250-50 mcg/dose inhaler Inhale 1 puff as instructed two times a day. - levothyroxine (SYNTHROID) 100 mcg tablet Take one tab by mouth daily.Friday -Friday and 1/2 on Friday. - predniSONE (DELTASONE) 20 mg tablet Take 3 tabs by mouth for 3 days, then 2 tabs by mouth for 3 days, then 1 tab by mouth for 3 days and then 1/2 a tab by mouth for 4 days. - SPIRIVA WITH HANDIHALER 18 mcg inhalation capsule Inhale 1 capsule as instructed once daily. - sodium chloride soluble tablet 1 g Take 1 tablet by mouth once daily. - DULoxetine (CYMBALTA) 60 mg capsule Take 1 capsule by mouth once daily. - pedi multivitamin no.203-iron (FLINTSTONES WITH IRON) 18 mg iron chew Take 2 tablets by mouth once daily. - DULoxetine (CYMBALTA) 30 mg capsule Take one tab a day for a week. Then go to taking one twice a day. - propranolol (INDERAL) 10 mg tablet Take 1 tablet by mouth once daily. - ascorbic acid, vitamin C, (VITAMIN C) 500 mg tablet Take 1 tablet by mouth every other day. - SENOKOT 8.6 mg tab Take 1 tablet by mouth two times a day. - Dexlansoprazole 60 mg CpDM Take 60 mg by mouth one time only. - albuterol (PROVENTIL) 2.5 mg /3 mL (0.083 %) nebulizer solution Use 3 mL via nebulizer every 6 hours as needed for wheezing/shortness of breath. Use over 5-15minutes. - albuterol HFA (PROAIR HFA) 90 mcg/actuation inhaler USE 2 INHALATIONS EVERY 6 HOURS INSTRUCTED NEEDED - ipratropium-albuterol (DUONEB) 0.5 mg-3 mg(2.5 mg base)/3 mL nebu Inhale 3 mL as instructed two times a day. - Cholecalciferol, Vitamin D3, 50 mcg (2,000 unit) cap Take 1 capsule by mouth once daily. - cyanocobalamin (VITAMIN B-12) 1,000 mcg tab Take 1 tablet by mouth once daily. - ergocalciferol, vitamin D2, (VITAMIN D2 ORAL) Take by mouth. Speech Therapist Early Intervention: Addendum Therapy (PT/OT/Speech/Resp) ID: [id number] 06/14/2025 3:34 PM Author: PAMELA SORENSON Signed by PAMELA SORENSON PT on 06/14/2025 at 3:34 PM * * * This document replaces document [id number] * * * Document text: Program_ID:[id number] Access Code: [email or web address] URL: [email or web address] Date: 06-14-2025 Prepared By: Pamela Sorenson Program Notes Exercises - Seated Transversus Abdominis Bracing with PLB - 2 x daily - 7 x weekly - 4 sets - 10 reps - Seated March - 2 x daily - 7 x weekly - 2 sets - 30 reps - Seated Marching with Opposite Shoulder Flexion - 2 x daily - 7 x weekly - 2 sets - 30 reps Normal [facility] THERAPY NTon 06-14-2025 THERAPY NT HNO ID: [id number] Author: PAMELA SORENSON PT Service: ? Author Type: Physical Therapist Type: Therapy (PT/OT/Speech/Resp) Filed: 06/14/2025 15:34 Note Text: Program_ID:[id number] Access Code: [email or web address] URL: [email or web address] Date: 06-14-2025 Prepared By: Pamela Sorenson Program Notes Exercises - Seated Transversus Abdominis Bracing with PLB - 2 x daily - 7 x weekly - 4 sets - 10 reps - Seated March - 2 x daily - 7 x weekly - 2 sets - 30 reps - Seated Marching with Opposite Shoulder Flexion - 2 x daily - 7 x weekly - 2 sets - 30 reps Normal [facility] Esophageal Manometryon 06-01 Impression Overall this is consistent with a normal esophageal manometry Recommendation Return to referring physician Indication Gastroesophageal reflux disease without esophagitis GERD, heartburn despite Dexilant 60 mg daily. Intermittent dysphasia: solid foods gets stuck in the distal esophagus, has to wait about an hour for it to go down. Nocturnal regurgitation of plegm makes her cough and spit it out. Constant nausea. EGD 10/29/24: Regular Z-line at 36 cm. Mild, localized erythematous mucosa in the prepyloric region, consistent with gastritis. Bx's: negative for Celiac sprue, H. pylori. No intestinal metaplasia or dysplasia. Dissociated fragments of reactive squamous mucosa and gastric cardia type mucosa with chronic inflammatory cell infiltration and mild congestion. EGD 03/13/20: Normal esophagus, stomach and duodenum. Bxs: negative for H. pylori. FL upper with KUB 09/05/21: Moderate volume of reflux to the mid esophageal level. Details of the Session I have reviewed the indications for the procedure, the manometric recordings for the procedure, and the measured/calculated manometric parameters and other findings included in the accompanying motility nursing note. I concur with the findings indicated on the nurse report except as indicated below: Separate exam findings: - The LES pressure is normal at 23.9 mmHg and it appears to relax normally with a normal median IRP at 14.6 mmHg. The median IRP in the upright swallows is also normal at 12.3 - There is no evidence of a hiatal hernia - The study of the esophageal peristalsis shows normal peristalsis in the upright swallows. The mean DCI is 1043.8 mmHg-cm-sec. - The impedance study shows complete bolus transit in 20% of the swallows Procedure Location [facility] [address] [facility] [id number] Referring Provider Clifford Rhoades, DO [address] [facility], [address] [place] [address] [facility] Work Phone: Devonte Tsang MD - 06/01/2025 Impression Overall this is consistent with a normal esophageal manometry Recommendation Return to referring physician Indication Gastroesophageal reflux disease without esophagitis GERD, heartburn despite Dexilant 60 mg daily. Intermittent dysphasia: solid foods gets stuck in the distal esophagus, has to wait about an hour for it to go down. Nocturnal regurgitation of plegm makes her cough and spit it out. Constant nausea. EGD 10/29/24: Regular Z-line at 36 cm. Mild, localized erythematous mucosa in the prepyloric region, consistent with gastritis. Bx's: negative for Celiac sprue, H. pylori. No intestinal metaplasia or dysplasia. Dissociated fragments of reactive squamous mucosa and gastric cardia type mucosa with chronic inflammatory cell infiltration and mild congestion. EGD 03/13/20: Normal esophagus, stomach and duodenum. Bxs: negative for H. pylori. FL upper with KUB 09/05/21: Moderate volume of reflux to the mid esophageal level. Details of the Session I have reviewed the indications for the procedure, the manometric recordings for the procedure, and the measured/calculated manometric parameters and other findings included in the accompanying motility nursing note. I concur with the findings indicated on the nurse report except as indicated below: Separate exam findings: - The LES pressure is normal at 23.9 mmHg and it appears to relax normally with a normal median IRP at 14.6 mmHg. The median IRP in the upright swallows is also normal at 12.3 - There is no evidence of a hiatal hernia - The study of the esophageal peristalsis shows normal peristalsis in the upright swallows. The mean DCI is 1043.8 mmHg-cm-sec. - The impedance study shows complete bolus transit in 20% of the swallows Procedure Location [facility] [address] [facility] [id number] Referring Provider Clifford Rhoades DO [address] [facility], [address] [place] [address] [facility] Work Phone: Esophageal ManometryOrdered By: Devonte Tsang on 06-01-2025 [facility] Work Phone: Esophageal pH Impedance 24 h ourson 06-01-2025 Table formatting fro m the original result was not included. Images from the original result were not included. Patient: Brenda Villalobos [id number] Gender: Female Physician: Devonte Tsang MD Age: 55 Referred by: DO Clifford Rhoades : 1970 Jaw Skinner: Javon Silva RN Height: Medication: On Weight: Date: 05/17/2025 Findings: - The total acid exposure time was 0.1% and the DeMeester score was 1.1 indicating absence of acid reflux - There was a total of 60 reflux episodes of which 24 were proximal episodes (< 28 is normal) - There was a total of 59 weakly acid reflux episodes which is considered abnormal (<12 is normal) - There were a total of 87 symptoms reported (heartburn, cough mostly) with a SAP of 98% indicating positive symptom correlation - The Mean Nocturnal Baseline Impedance was 3050 Ohms (normal is > 2292 ohms) Impressions: Overall this study shows is negative for acid reflux (study done on medications) There is some non-acid reflux There is positive symptom correlation (consider reflux hypersensitivity) REFLUX MONITORING SUMMARY [pH]Acid Exposure Summary Total Normal Upright Normal Supine Normal Acid exposure time (%) 0.1 <4.2 0.2 <6.3 0.0 <1.2 Longest reflux (min) 0.4 <9.2 0.3 0.1 DeMeester Score 1.1 <14.7 [Z]Reflux Episode Activity Summary Total Upright Supine All reflux episodes* 60 55 5 Proximal episodes* 24 22 2 Bolus Exposure Time (%) 5.8 9.2 2.2 Bolus Exposure Time (%)(Normal) <2.1 <3.2 <0.2 * not normalized [Z]Symptom Association Summary Heartburn Chest Pain Cough Regurg. Number of occurrences 16 1 66 4 Acid reflux 0 0 0 0 Weakly acidic reflux 6 0 19 1 Non-acid reflux 0 0 0 0 All reflux 6 0 19 1 Symptom Index (SI) 37.5 0.0 28.8 25.0 Symptom Association Probability (SAP) 98.7 0.0 100.0 64.2 Note: 1. pH normal values in the report are from publications wherein subjects are not taking acid suppressive medication, irrespective of the medication selection in the Diary. 2. Impedance normal values in the report are from Kaye et al., Clinical Gastro. & Hepato. 2013. The normal values are dependent on the medication selection in the Diary. REFLUX ANALYSIS BASED ON pH MEASUREMENT Period Durations (HH:MM) Total Upright Supine Total Time 24:00 13:56 10:04 Analysis Time 19:22 09:55 09:27 [pH]Acid Reflux Analysis Total Upright Supine Acid exposure time (HH:MM) 00:01 00:01 00:00 Acid exposure time (%) 0.1 0.2 0.0 Number of refluxes 6 5 2 Number of long refluxes 0 0 0 Longest reflux (min) 0.4 0.3 0.1 [pH]DeMeester Score Score Normal* Ch 1 1.1 <14.7 * 95th percentile REFLUX ANALYSIS BASED ON Z MEASUREMENT AND CLASSIFIED BASED ON pH [Z]Normalized Reflux Episode Activity* Total Normal Acid reflux 1 <7.0 Weakly acidic reflux 73 <55.0 Non-acid reflux 0 <2.0 All reflux 74 <57.0 * Episodes/24 hr. 95th percentile [Z]Reflux Episode Activity Total Upright Supine Acid reflux 1 1 0 Weakly acidic reflux 59 54 5 Non-acid reflux 0 0 0 All reflux 60 55 5 [Z]Reflux Composition Total Normal Upright Normal Supine Normal Liquid Only 46 42 5 Mixed 15 14 1 Gas Only 259 237 22 [Z]Bolus Exposure Time Total Upright Supine Acid reflux 00:02 00:02 00:00 Weakly acidic reflux 01:05 00:53 00:13 Non-acid reflux 00:00 00:00 00:00 All reflux 01:07 00:55 00:13 5.0 cm above LES [Z]Reflux Symptom Index Heartburn Chest Pain Cough Regurg. Acid reflux 0.0 0.0 0.0 0.0 Weakly acidic reflux 37.5 0.0 28.8 25.0 Non-acid reflux 0.0 0.0 0.0 0.0 All reflux 37.5 0.0 28.8 25.0 [Z]Reflux Symptom Association Probability* Heartburn Chest Pain Cough Regurg. Acid reflux 0.0 0.0 0.0 0.0 Weakly acidic reflux 99.1 0.0 100.0 65.3 Non-acid reflux 0.0 0.0 0.0 0.0 All reflux 98.7 0.0 100.0 64.2 * Probability that symptom and reflux are not associated solely by chance, (>95% is significant) [Z]Proximal Reflux Count Total Upright Supine Acid reflux 2 2 0 Weakly acidic reflux 22 20 2 Non-acid reflux 0 0 0 All reflux 24 22 2 15.0 cm above LES [Z]Additional Analysis Parameters Value Normal Mean Nocturnal Baseline Impedance (MNBI,kOhm) 3.05 3.0 cm above LES [facility] Work Phone: [facility] Work Phone: CNTHERAPYon 05-24-2025 CNTHERAPY OT/PT/Speech Visit ( PTWS) ----- BRENDA VILLALOBOS ([id number]) 1970 F Date Time Provider Department 05/24/25 3:00 PM PAMELA SORENSON Date Time Provider Department Center 05/24/2025 3:00 PM [id number] SORENSON [place] Reason for Visit: Physical Therapy [503] Primary Visit Diagnosis:Acute bilateral low back pain with bilateral sciatica [M54.42, M54.41] Allergies As of Date: 05/24/2025 Noted Allergy Reaction MEDROL DOSE PACK (METHYLPREDNISOL*02/01/20 17 7 - Swelling Comments: Swelling of throat BACTRIM (SULFAMETHOXAZOLE) 08/12/2013 9 - Itching BUSPAR (BUSPIRONE) 03/29/2025 14 - Other: See Comments Comments: Did not work for anxiety CARAFATE (SUCRALFATE) 05/31/2024 14 - Other: See Comments Comments: Made her constipated MORPHINE 08/12/2013 9 - Itching TRIMETHOPRIM 03/12/2019 14 - Other: See Comments 16 - Unknown WELLBUTRIN (BUPROPION) 03/29/2025 14 - Other: See Comments Comments: Constipation. ZOLOFT (SERTRALINE) 04/19/2020 14 - Other: See Comments Comments: Chest felt heavy. Date Reviewed: 04/20/2025 Reviewed by: Fortino Logan MD - Fully Assessed Prescriptions as of 05/24/2025 - levothyroxine (SYNTHROID) 100 mcg tablet Take one tab by mouth daily.Friday -Friday and 1/2 on Friday. - predniSONE (DELTASONE) 20 mg tablet Take 3 tabs by mouth for 3 days, then 2 tabs by mouth for 3 days, then 1 tab by mouth for 3 days and then 1/2 a tab by mouth for 4 days. - SPIRIVA WITH HANDIHALER 18 mcg inhalation capsule Inhale 1 capsule as instructed once daily. - sodium chloride soluble tablet 1 g Take 1 tablet by mouth once daily. - DULoxetine (CYMBALTA) 60 mg capsule Take 1 capsule by mouth once daily. - pedi multivitamin no.203-iron (FLINTSTONES WITH IRON) 18 mg iron chew Take 2 tablets by mouth once daily. - DULoxetine (CYMBALTA) 30 mg capsule Take one tab a day for a week. Then go to taking one twice a day. - propranolol (INDERAL) 10 mg tablet Take 1 tablet by mouth once daily. - ascorbic acid, vitamin C, (VITAMIN C) 500 mg tablet Take 1 tablet by mouth every other day. - WIXELA INHUB 250-50 mcg/dose inhaler Inhale 1 puff as instructed two times a day. - SENOKOT 8.6 mg tab Take 1 tablet by mouth two times a day. - Dexlansoprazole 60 mg CpDM Take 60 mg by mouth one time only. - albuterol (PROVENTIL) 2.5 mg /3 mL (0.083 %) nebulizer solution Use 3 mL via nebulizer every 6 hours as needed for wheezing/shortness of breath. Use over 5-15minutes. - albuterol HFA (PROAIR HFA) 90 mcg/actuation inhaler USE 2 INHALATIONS EVERY 6 HOURS INSTRUCTED NEEDED - ipratropium-albuterol (DUONEB) 0.5 mg-3 mg(2.5 mg base)/3 mL nebu Inhale 3 mL as instructed two times a day. - Cholecalciferol, Vitamin D3, 50 mcg (2,000 unit) cap Take 1 capsule by mouth once daily. - cyanocobalamin (VITAMIN B-12) 1,000 mcg tab Take 1 tablet by mouth once daily. - ergocalciferol, vitamin D2, (VITAMIN D2 ORAL) Take by mouth. Speech Therapist Early Intervention: Therapy (PT/OT/Speech/Resp) ID: [id number] 05/24/2025 3:27 PM Author: PAMELA SORENSON Signed by PAMELA SORENSON PT on 05/24/2025 at 3:27 PM Document text: Program_ID:[id number] Access Code: [email or web address] URL: [email or web address] Date: 05-24-2025 Prepared By: Pamela Sorenson Program Notes Exercises - Hooklying Transversus Abdominis Palpation - 2 x daily - 7 x weekly - 4 sets - 5 reps - Seated Transversus Abdominis Bracing with PLB - 2 x daily - 7 x weekly - 2 sets - 5 reps - Supine Transversus Abdominis Bracing with Heel Slide - 2 x daily - 7 x weekly - 4 sets - 30 reps - Hooklying Small March - 2 x daily - 7 x weekly - 4 sets - 30 reps Normal [facility] THERAPY NTon 05-24-2025 THERAPY NT HNO ID: [id number] Author: PAMELA SORENSON PT Service: ? Author Type: Physical Therapist Type: Therapy (PT/OT/Speech/Resp) Filed: 05/24/2025 15:27 Note Text: Program_ID:[id number] Access Code: [email or web address] URL: [email or web address]/ Date: 05-24-2025 Prepared By: Pamela Sorenson Program Notes Exercises - Hooklying Transversus Abdominis Palpation - 2 x daily - 7 x weekly - 4 sets - 5 reps - Seated Transversus Abdominis Bracing with PLB - 2 x daily - 7 x weekly - 2 sets - 5 reps - Supine Transversus Abdominis Bracing with Heel Slide - 2 x daily - 7 x weekly - 4 sets - 30 reps - Hooklying Small March - 2 x daily - 7 x weekly - 4 sets - 30 reps Normal [facility] CNPNon 05-17-2025 CNPN Telephone (GERMAINWS) ----- BRENDA VILLALOBOS ([id number]) 1970 F Date Time Provider Department 05/17/25 FORTINO LOGAN During your visit today, we recorded the following information about you: Keli Nelson MA 05/17/2025 9:31 AM Signed TSH results from [facility] ordered by PCP. Please review. Keli Nelson MA View External Labs - TSH [ID [id number]] Fortino Logan MD 05/17/2025 12:19 PM Signed Check with patient and see if she is taking the levothyroxine 100 mg every day or just Mon-Sat? Francisco Carver LPN 05/17/2025 3:08 PM Signed Spoke with pt. She confirms that she has been taking her levothyroxine everyday. She advises that at ov PCP told her to take it this way. She said she noticed on the bottle it said to take M-Sat but she has been taking as instructed at ov. RENETTA Florez Jeffrey A, MD 05/17/2025 4:47 PM Signed Let her know the TSH is better but now shows she is on too much levothyroxine. I want to keep her on the 100 mcg tab but take one a day Mon-Sat and 1/2 a tab on Friday. I updated the MAR and placed an order for a TSH to be done on or after 07/18/2025. This was printed and will need faxed to [facility]. Keli Nelson MA 05/18/2025 7:44 AM Signed Order has been faxed to [facility]. Need to call and update pt of results. ALF Gabriel Sherill A, LPN 05/18/2025 2:21 PM Signed Pt notified of Dr Logan's message and instructions. Pt verbalizes understanding and repeats back instructions correctly. Pt will complete lab as instructed. Pt is aware lab order has been faxed to [facility]. Francisco Carver LPN Allergies As of Date: 05/17/2025 Noted Allergy Reaction MEDROL DOSE PACK (METHYLPREDNISOL*02/01/20 17 7 - Swelling Comments: Swelling of throat BACTRIM (SULFAMETHOXAZOLE) 08/12/2013 9 - Itching BUSPAR (BUSPIRONE) 03/29/2025 14 - Other: See Comments Comments: Did not work for anxiety CARAFATE (SUCRALFATE) 05/31/2024 14 - Other: See Comments Comments: Made her constipated MORPHINE 08/12/2013 9 - Itching TRIMETHOPRIM 03/12/2019 14 - Other: See Comments 16 - Unknown WELLBUTRIN (BUPROPION) 03/29/2025 14 - Other: See Comments Comments: Constipation. ZOLOFT (SERTRALINE) 04/19/2020 14 - Other: See Comments Comments: Chest felt heavy. Date Reviewed: 04/20/2025 Reviewed by: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 weakness, paresthesia, dysarthria, or dysphagia. She also denies experiencing auras, such as blurred vision, scotomas, or altered taste or smell, prior to the onset of headaches. She notes that her vision is funky before the headaches, but attributes this to worsening eyesight rather than an aura. She has a family history of migraines, with her son Diego being affected. Brenda has been taking up to 5 Tylenol and 4 ibuprofen for headache relief, but reports that this regimen is often ineffective. She has also tried Sudafed and Claritin without relief. She notes that if she does not take medication at the onset of a headache, the pain can become debilitating, sometimes confining her to bed all day. She has a sleep study scheduled for April and reports difficulty sleeping during the day, despite feeling tired. She typically goes to bed around [id number] and wakes up at [id number], with sleep catching up to her on weekends when she may sleep all day. Brenda has a history of anxiety and depression and was recently prescribed Wellbutrin, which she discontinued after a few weeks due to severe constipation and lack of improvement in her symptoms. She is currently taking Prozac 40 mg twice daily, which she reports is effective for depression but not for anxiety. She has previously tried BuSpar without success. She is also taking B12 and a new strength of thyroid medication, 100 mcg daily, with a follow-up thyroid test scheduled for April 23. Brenda has been experiencing GERD symptoms and is currently taking Dexilant, which she reports provides variable relief. She was recently prescribed Reglan 10 mg, to be taken twice daily initially and then increased to four times daily, but has not yet started this medication. She has a history of cholecystectomy. She is a smoker and has not been able to reduce her smoking habit. Office visit 02/08/2025 Patient doing ok. Prozac no longer helping like it had been. Patient has not been taking her B12 but has been taking her Vit D. Patient did have a scope in Oct 2024 per Gastro in [place] and was started on Dexlansoprazole 60 mg daily and told to f/u if needed. There was no subsequent f/u to see if her symptoms were improved or continuing. Patient says her GERD is only slightly improved Still getting the acid reflex daily. Still has the chronic epigastric pain. Has sinus headache's daily over the frontal sinuses and the back of her head. Wakes up with them. Is tired most days. Is a snore. Possible witnessed apnea Not aware if anybody in her family has migraine issues. Past medical history, appointments, medications, allergies reviewed. 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 Has been on omeprazole, pantoprazole and prevacid with no relief of symptoms. Nexium has been helpful and dexalant Headache, unspecified headache type 03/29/2025 Insomnia 04/12/2014 Iron deficiency anemia 02/21/2025 OA (osteoarthrosis) 05/18/2021 Post-menopausal Situational depression 04/19/2020 Smoker 08/12/2013 Started at the age of 11 up to 1.5 PPD Spastic bladder 10/23/2018 Thrombocytosis 02/21/2025 Varicose veins of bilateral lower extremiti (more content not included)... Normal [facility] CNPNon 03-21-2025 CNPN Telephone ([facility]AMPWS) ----- BRENDA VILLALOBOS ([id number]) 1970 F Date Time Provider Department 03/21/25 FORTINO LOGAN During your visit today, we recorded the following information about you: Nancy Lal LPN 03/21/2025 3:30 PM Signed Cristy with [facility] calls to report the rx for Senokot 8.6 has VANESSA on it. Cristy reports Brand will cost pt $40. Cristy reports she spoke to pt and pt stated she did not know why it was VANESSA and would use the generic. Cristy is asking if there is a reason that pt needs Brand instead of generic. Please resend rx with generic if ok. Call pharmacy if rx has to be brand. Nancy Lal LPN Allergies As of Date: 03/21/2025 Noted Allergy Reaction MEDROL DOSE PACK (METHYLPREDNISOL*02/01/20 17 7 - Swelling Comments: Swelling of throat BACTRIM (SULFAMETHOXAZOLE) 08/12/2013 9 - Itching CARAFATE (SUCRALFATE) 05/31/2024 14 - Other: See Comments Comments: Made her constipated MORPHINE 08/12/2013 9 - Itching TRIMETHOPRIM 03/12/2019 14 - Other: See Comments 16 - Unknown ZOLOFT (SERTRALINE) 04/19/2020 14 - Other: See Comments Comments: Chest felt heavy. Date Reviewed: 01/04/2025 Reviewed by: Fortino Logan MD - Fully Assessed Reason for Visit: Medication Question [4138] Prescriptions as of 03/21/2025 - ferrous sulfate (SLOW FE) 137 mg (45 mg iron) TbER Take 1 tablet by mouth every other day. - ascorbic acid, vitamin C, (VITAMIN C) 500 mg tablet Take 1 tablet by mouth every other day. - levothyroxine (SYNTHROID) 100 mcg tablet Take one tab by mouth daily.Soto -Friday and none on Friday. - WIXELA INHUB 250-50 mcg/dose inhaler Inhale 1 puff as instructed two times a day. - SENOKOT 8.6 mg tab Take 1 tablet by mouth two times a day. - buPROPion SR (WELLBUTRIN SR) 100 mg 12 hr tablet Take one tab by mouth daily for two weeks and then go to taking one tablet twice a day. - FLUoxetine (PROZAC) 40 mg capsule Take 1 capsule by mouth two times a day. - tiotropium (SPIRIVA) 18 mcg inhalation capsule Inhale 1 capsule as instructed once daily. - Dexlansoprazole 60 mg CpDM Take 60 mg by mouth one time only. - albuterol (PROVENTIL) 2.5 mg /3 mL (0.083 %) nebulizer solution Use 3 mL via nebulizer every 6 hours as needed for wheezing/shortness of breath. Use over 5-15minutes. - albuterol HFA (PROAIR HFA) 90 mcg/actuation inhaler USE 2 INHALATIONS EVERY 6 HOURS INSTRUCTED NEEDED - ipratropium-albuterol (DUONEB) 0.5 mg-3 mg(2.5 mg base)/3 mL nebu Inhale 3 mL as instructed two times a day. - Cholecalciferol, Vitamin D3, 50 mcg (2,000 unit) cap Take 1 capsule by mouth once daily. - cyanocobalamin (VITAMIN B-12) 1,000 mcg tab Take 1 tablet by mouth once daily. - ergocalciferol, vitamin D2, (VITAMIN D2 ORAL) Take by mouth. Problem List As Of Date 03/21/2025 Noted Resolved Post-menopausal [Z78.0] COPD with asthma (HCC) [J44.89] Vitamin D deficiency [E55.9] Smoker [F17.200] 08/12/2013 Allergic rhinitis [J30.9] 09/03/2013 Insomnia [G47.00] 04/12/2014 Acquired hypothyroidism [E03.9] 04/25/2015 Constipation [K59.00] 08/23/2015 Encounter for gynecological examination without*04/17/2016 Well adult exam [Z00.00] 04/17/2016 Gastro-esophageal reflux disease with esophagit*10/18/2016 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] 10/18/2016 Encounter for screening for cardiovascular diso*10/18/2016 07/27/2024 Encounter for screening for diabetes mellitus [*10/18/2016 Elevated fasting blood sugar [R73.01] 04/18/2017 Encounter for screening mammogram for breast ca*04/22/2018 Dyslipidemia [E78.5] 04/22/2018 Spastic bladder [N32.89] 10/23/2018 Situational depression [F43.21] 04/19/2020 Varicose veins of bilateral lower extremities w*04/19/2020 Medication management [Z79.899] 04/19/2020 Vitamin B12 deficiency [E53.8] 10/25/2020 MURIEL (generalized anxiety disorder) [F41.1] 05/18/2021 Screening for colon cancer [Z12.11] 05/18/2021 OA (osteoarthrosis) [M19.90] 05/18/2021 Bilateral groin pain [R10.31, R10.32] 06/04/2023 Bilateral hip pain [M25.551, M25.552] 06/04/2023 Thrombocytosis [D75.839] 02/21/2025 Iron deficiency anemia [D50.9] 02/21/2025 Encounter Status:Closed by MELANY BLANC on 03/21/25 [facility] US THYROID/PARATHYROIDon US THYROID/PARATHYROID * * *Final Report * * * DATE OF EXAM: Feb 11 2025 3:13PM [facility] 1048 - US THYROID/PARATHYROID / PROCEDURE REASON: Mass of thyroid gland * * * * Physician Interpretation * * * * EXAMINATION: THYROID ULTRASOUND CLINICAL HISTORY: Mass of thyroid gland TECHNIQUE: Sonography and Doppler imaging of the thyroid was performed. Images were obtained and stored in a permanent archive. MQ: UST_1 COMPARISON: 06/10/2022 RESULT: Right Lobe: 6.5 x 2.5 x 2.7 cm (previously 5.9 x 2.3 x 2.2 cm on 06/10/2022); heterogeneous echogenicity, expected vascular flow. Left Lobe: 3.9 x 1.1 x 1.4 cm (previously 3.9 x 0.9 x 1 cm on 06/10/2022); heterogeneous echogenicity, expected vascular flow. Isthmus: 0.5 cm The most suspicious thyroid nodule(s) (up to four) as below: Nodules: None IMPRESSION: Heterogeneous thyroid gland demonstrates no discrete nodule. Right thyroid lobe is again enlarged. Left thyroid lobe is normal in size. Can Crimper: CHAYITO Transcribe Date/Time: Feb 14 2025 7:13P Dictated by : ELLA CAMPBELL MD This examination was interpreted and the report reviewed and electronically signed by: ELLA CAMPBELL MD on Feb 14 2025 7:15PM EST [id number] Normal [facility] Absolute lymphocyte countOrd ered By: Fortino Logan on 02-10-2025 Lymphocytes Auto (Unsp spec) [#/Vol] 2.06 10*3/uL 0.83-4.51 [facility] Absolute neutrophil countOrd ered By: Fortino Logan on 02-10-2025 Neutrophils (Bld) [#/Vol] 3.3 10*3/uL 2.0-7.7 [facility] Anion gap in Serum or Plasma Ordered By: Fortino Logan on 02-10-2025 Anion gap [Moles/Vol] 12 mmol/L 5-15 [facility] Automated blood erythrocyte counton 02-10-2025 RBC (Bld) [#/Vol] 3.66 10*6/uL Low 4.2-5.4 [facility] Comment on above: Performed By: #### L 506.1000, L503.0105, L501.9985, L500.4100, L100.0100 #### [facility] [address] [place], [place], [id number] Automated blood hematocrit ( percentage)on 02-10-2025 Hematocrit (Bld) [Volume fraction] 31.1 % Low 37-47 [facility] Comment on above: Performed By: #### L 506.1000, L503.0105, L501.9985, L500.4100, L100.0100 #### [facility] [address] [place], [address] Automated lymphocyte count a s percentage of total leukocytesOrdered By: Fortino Logan on 02-10-2025 Lymphocytes/100 WBC Auto (Unsp spec) 33.3 % 19-41 [facility] BUN/creatinine ratioOrdered By: Fortino Logan on 02-10-2025 Urea nitrogen/Creatinine [Mass ratio] 11.8 mg/mg 10-20 [facility] Basophil percentageon 2024 Basophils/100 WBC (Bld) 0.6 % Normal 0-1 [facility] Comment on above: Performed By: #### L 506.1000, L503.0105, L501.9985, L500.4100, L100.0100 #### [facility] [address] [place], [place], [id number] Bilirubin, totalOrdered By: Fortino Logan on 02-10-2025 Bilirubin [Mass/Vol] 0.25 mg/dL 0.00-1.30 [facility] CBC W/DIFF/PLT (EXTERNAL LAB ROSARIO)on 02-10-2025 BASO ABSOLUTE [facility] EOS ABSOLUTE [facility] Immature Gran % [facility] IMMATURE GRANS ABSOLUTE [facility] LYMPHS ABSOLUTE 2.06 [facility] MCH 29.2 Pg 26.6 - 33 Pg [facility] MCV (RBC) [Entitic vol] 85 fL 79 - 97 fL [facility] MONOCYTES ABSOLUTE [facility] NEUTROPHILS ABSOLUTE 3.3 [facility] CBC W/Diff, Automatedon Absolute Lymph 2.06 X10 3/uL Normal 0.83-4.51 [facility] Comment on above: Performed By: #### L 506.1000, L503.0105, L501.9985, L500.4100, L100.0100 #### [facility] [address] [place], [place], [id number] Absolute Neut 3.3 X10 3/uL Normal 2.0-7.7 [facility] Comment on above: Performed By: #### L 506.1000, L503.0105, L501.9985, L500.4100, L100.0100 #### [facility] [address] [place], [address] IG% 0.600 Normal 0.0-0.9 [facility] Comment on above: Result Comment: IG% - Immature Granulocytes (promyelocytes, myelocytes and metamyelocytes) > 1% indicates that a LEFT SHIFT is Present. Performed By: #### L 506.1000, L503.0105, L501.9985, L500.4100, L100.0100 #### [facility] [address] [place], [address] Lymphocytes/100 WBC (Bld) 33.3 % Normal 19-41 [facility] Comment on above: Performed By: #### L 506.1000, L503.0105, L501.9985, L500.4100, L100.0100 #### [facility] [address] [place], [address] MCH (RBC) [Entitic mass] 29.2 pg Normal 27.0-32.0 [facility] Comment on above: Performed By: #### L 506.1000, L503.0105, L501.9985, L500.4100, L100.0100 #### [facility] [address] [place], [address] MCV (RBC) [Entitic vol] 85.0 fL Normal 81-99 [facility] Comment on above: Performed By: #### L 506.1000, L503.0105, L501.9985, L500.4100, L100.0100 #### [facility] [address] [place], [address] Nucleated RBC (Bld) [#/Vol] 0 10*3/uL Normal 0-5 [facility] Comment on above: Performed By: #### L 506.1000, L503.0105, L501.9985, L500.4100, L100.0100 #### [facility] [address] [place], [address] Platelet mean volume (Bld) [Entitic vol] 8.6 fL Normal 6.2-12.0 [facility] Comment on above: Performed By: #### L 506.1000, L503.0105, L501.9985, L500.4100, L100.0100 #### [facility] [address] [place], [place], [id number] RDW SD 46.0 fl High 35.1-43.9 [facility] Comment on above: Performed By: #### L 506.1000, L503.0105, L501.9985, L500.4100, L100.0100 #### [facility] [address] [place], [place], [id number] CMP (EXTERNAL)on 02-10-2025 Alk Phos Total 64 U/L 45 - 117 U/L [facility] Bili Total 0.25 mg/dL 0.2 - 1 mg/dL [facility] GFR 105 mL/MIN [facility] GFR AFR AMER [facility] Potassium [Moles/Vol] 4 mmol/L 3.5 - 5.1 mmol/L [facility] Protein [Mass/Vol] 7 g/dL [facility] Calculated very low density lipoprotein (VLDL) cholesterol measurementOrdered By: Fortino Logan on 02-10-2025 Calculated very low density lipoprotein (VLDL) cholesterol measurement 20 mg/dL 5-40 [facility] Carbon dioxide, total [Moles /volume] in Central venous bloodon 02-10-2025 CO2 [Moles/Vol] 21.6 mmol/L Normal 21.0-32.0 [facility] Comment on above: Performed By: #### L 506.1000, L503.0105, L501.9985, L500.4100, L100.0100 #### [facility] [address] [place], [address] Chloride assayon 02-10-2025 Chloride [Moles/Vol] 95 mmol/L Low 98-108 [facility] Comment on above: Performed By: #### L 506.1000, L503.0105, L501.9985, L500.4100, L100.0100 #### [facility] [address] [place], [address] Comprehensive Metabolic Prof mson 02-10-2025 Albumin/Globulin [Mass ratio] 1.2 {ratio} Normal 0.9-2.4 [facility] Comment on above: Performed By: #### L 506.1000, L503.0105, L501.9985, L500.4100, L100.0100 #### [facility] [address] [place], [address] ALK PHOS 64 U/L Normal 35-104 [facility] Comment on above: Performed By: #### L 506.1000, L503.0105, L501.9985, L500.4100, L100.0100 #### [facility] [address] [place], [address] Bilirubin [Mass/Vol] 0.25 mg/dL Normal 0.00-1.30 [facility] Comment on above: Performed By: #### L 506.1000, L503.0105, L501.9985, L500.4100, L100.0100 #### [facility] [address] [place], [address] BUN/CRE 11.8 RATIO Normal 10-20 [facility] Comment on above: Performed By: #### L 506.1000, L503.0105, L501.9985, L500.4100, L100.0100 #### [facility] [address] [place], [address] GAP 12 Normal 5-15 [facility] Comment on above: Performed By: #### L 506.1000, L503.0105, L501.9985, L500.4100, L100.0100 #### [facility] [address] [place], [address] GFR/1.73 sq M.predicted among non-blacks MDRD (S/P/Bld) [Vol rate/Area] 105 mL/min/{1.73_m2} Normal >60 [facility] Comment on above: Result Comment: mL/m in/1.73m2 CKD-EPI Creatinine Equation (2020) Performed By: #### L 506.1000, L503.0105, L501.9985, L500.4100, L100.0100 #### [facility] [address] [place], [address] Globulin (S) [Mass/Vol] 3.2 g/dL Normal 2.2-4.2 [facility] Comment on above: Performed By: #### L 506.1000, L503.0105, L501.9985, L500.4100, L100.0100 #### [facility] [address] [place], [address] Potassium [Moles/Vol] 4.0 mmol/L Normal 3.3-5.1 [facility] Comment on above: Performed By: #### L 506.1000, L503.0105, L501.9985, L500.4100, L100.0100 #### [facility] [address] [place], [address] T PROT 7.0 g/dL Normal 5.9-8.4 [facility] Comment on above: Performed By: #### L 506.1000, L503.0105, L501.9985, L500.4100, L100.0100 #### [facility] [address] [place], [address] AST [Catalytic activity/Vol] 16 U/L Normal <=31 [facility] Comment on above: Performed By: #### L 506.1000, L503.0105, L501.9985, L500.4100, L100.0100 #### [facility] [address] [place], [address] Eosinophil percentageon 05-0 Eosinophils/100 WBC (Bld) 1.8 % Normal 0-5 [facility] Comment on above: Performed By: #### L 506.1000, L503.0105, L501.9985, L500.4100, L100.0100 #### [facility] [address] [place], [address] Erythrocyte distribution wid th ratioon 02-10-2025 Erythrocyte distribution width (RBC) [Ratio] 14.6 % Normal 11.6-14.6 [facility] Comment on above: Performed By: #### L 506.1000, L503.0105, L501.9985, L500.4100, L100.0100 #### [facility] [address] [place], [address] Erythrocyte distribution wid th standard deviationOrdered By: Fortino Logan on 02-10-2025 Erythrocyte distribution width (RBC) [Ratio] 46.0 fl High 35.1-43.9 [facility] Ferritinon 02-10-2025 Ferritin [Mass/Vol] 25 ng/mL Normal 22-378 [facility] Comment on above: Performed By: #### L 506.1000, L503.0105, L501.9985, L500.4100, L100.0100 #### [facility] [address] [place], [address] Folate [Mass/Vol]on 02-11-20 25 Folic Acid 5.4 4.6 - 34.8 [facility] Folate [Mass/volume] in Seru m or PlasmaOrdered By: Fortino Logan on 02-10-2025 Folate [Mass/Vol] 5.40 ng/mL 4.60-34.80 [facility] Comment on above: Hemolysis, Results w ill be affected, Requires Recollection. Folates,Serum (Folic Acid)on 02-10-2025 FOLATES,SERUM 5.40 ng/mL Normal 4.60-34.80 [facility] Comment on above: Order Comment: N Result Comment: Hemo lysis, Results will be affected, Requires Recollection. Performed By: #### L 506.1000, L503.0105, L501.9985, L500.4100, L100.0100 #### [facility] [address] [place], [place], [address] Glomerular filtration rate ( GFR) estimation/1.73 sq m using serum, plasma, or whole bOrdered By: Fortino Logan on 02-10-2025 GFR/1.73 sq M.predicted among non-blacks MDRD (S/P/Bld) [Vol rate/Area] 105 mL/min/{1.73_m2} >60 [facility] Comment on above: mL/min/1.73m2 CKD-EP I Creatinine Equation (2020) Hemoglobin measurementon Hemoglobin (Bld) [Mass/Vol] 10.7 g/dL Low 12.0-15.0 [facility] Comment on above: Performed By: #### L 506.1000, L503.0105, L501.9985, L500.4100, L100.0100 #### [facility] [address] [place], [place], [id number] IRON PANEL (OUTSIDE)on 02-10 Iron % Saturation 8 Abnormal 13 - 59 [facility] Iron Binding Cap. 342 250 - 450 [facility] Immature granulocytes/100 WB C Auto (Bld)Ordered By: Fortino Logan on 02-10-2025 Immature granulocytes/100 WBC (Bld) 0.600 % 0.0-0.9 [facility] Comment on above: IG% - Immature Granu locytes (promyelocytes, myelocytes and metamyelocytes) > 1% indicates that a LEFT SHIFT is Present. Iron measurement (mass/mass) Ordered By: Fortino Logan on 02-10-2025 Iron (Unsp spec) [Mass/Mass] 27 ug/dL Low 50-170 [facility] Iron+Iron Binding Capacityon 02-10-2025 Iron [Mass/Vol] 27 ug/dL Low 50-170 [facility] Comment on above: Performed By: #### L 506.1000, L503.0105, L501.9985, L500.4100, L100.0100 #### [facility] [address] [place], [address] IRON SATURATION 8.0 Low 13-59 [facility] Comment on above: Performed By: #### L 506.1000, L503.0105, L501.9985, L500.4100, L100.0100 #### [facility] [address] [place], [address] TIBC 342 ug/dL Normal 250-450 [facility] Comment on above: Performed By: #### L 506.1000, L503.0105, L501.9985, L500.4100, L100.0100 #### [facility] [address] [place], [address] UIBC 315 ug/dL Normal 228-428 [facility] Comment on above: Performed By: #### L 506.1000, L503.0105, L501.9985, L500.4100, L100.0100 #### [facility] [address] [place], [address] LDL calc ser/plason 02-11-20 25 Cholesterol in LDL [Mass/Vol] 121 mg/dL Normal [facility] Comment on above: Epigkuczpk=963-354 m g/dL & Higher Fqne=432 mg/dL or greater Result Comment: Bord znbsct=322-691 mg/dL Higher Bvld=214 mg/dL or greater Performed By: #### L 506.1000, L503.0105, L501.9985, L500.4100, L100.0100 #### [facility] [address] [place], [address] LIPID PANEL (OUTSIDE)on LDL:HDL Ratio [facility] Non-HDL Cholesterol [facility] TC:HDL Ratio [facility] VLDL Cholesterol [facility] Lipid Profileon 02-10-2025 CHOL:HDL 4.41 Normal [facility] Comment on above: Performed By: #### L 506.1000, L503.0105, L501.9985, L500.4100, L100.0100 #### [facility] [address] [place], [address] Cholesterol in VLDL [Mass/Vol] 20 mg/dL Normal 5-40 [facility] Comment on above: Performed By: #### L 506.1000, L503.0105, L501.9985, L500.4100, L100.0100 #### [facility] [address] [place], [address] MCV (mean corpuscular volume ) determinationOrdered By: Fortino Logan on 02-10-2025 MCV (RBC) [Entitic vol] 85.0 fL 81-99 [facility] Mean corpuscular hemoglobin (MCH) determinationOrdered By: Fortino Logan on 02-10-2025 MCH (RBC) [Entitic mass] 29.2 pg 27.0-32.0 [facility] Mean corpuscular hemoglobin concentration (MCHC) determinationon 02-10-2025 MCHC (RBC) [Mass/Vol] 34.4 g/dL Normal 32-36 [facility] Comment on above: Performed By: #### L 506.1000, L503.0105, L501.9985, L500.4100, L100.0100 #### [facility] [address] [place], [address] Mean platelet volume determi nationOrdered By: Fortino Logan on 02-10-2025 Platelet mean volume (Bld) [Entitic vol] 8.6 fL 6.2-12.0 [facility] Monocyte percentageon 2024 Monocytes/100 WBC (Bld) 10.5 % High 0-10 [facility] Comment on above: Performed By: #### L 506.1000, L503.0105, L501.9985, L500.4100, L100.0100 #### [facility] [address] [place], [address] Neutrophil percentageon 05 Neutrophils/100 WBC (Bld) 53.2 % Normal 47-70 [facility] Comment on above: Performed By: #### L 506.1000, L503.0105, L501.9985, L500.4100, L100.0100 #### [facility] [address] [place], [address] No Panel InformationOrdered By: Fortino Logan on 02-10-2025 Unsaturated Iron Binding Capacity 315 ug/dL 228-428 [facility] No Panel Informationon 02-10 Interpretation and review of laboratory results Abnormal [facility] Nucleated red blood cell per centageOrdered By: Fortino Logan on 02-10-2025 Nucleated RBC/100 WBC (Bld) [Ratio] 0 % 0-5 [facility] Platelet counton 02-10-2025 Platelets (Bld) [#/Vol] 385 10*3/uL Normal 150-450 [facility] Comment on above: Performed By: #### L 506.1000, L503.0105, L501.9985, L500.4100, L100.0100 #### [facility] [address] [place], [address] Potassium measurement (mass/ volume)Ordered By: Fortino Logan on 02-10-2025 Potassium (Unsp spec) [Mass/Vol] 4.0 mmol/L 3.3-5.1 [facility] Screening total cholesterol/ high density lipoprotein (HDL) cholesterol ratioOrdered By: Fortino Logan on 02-10-2025 Cholesterol.total/Choles terol in HDL [Mass ratio] 4.41 {ratio} [facility] Serum creatinine measurement (mass/volume)on 02-10-2025 Creatinine [Mass/Vol] 0.61 mg/dL Low 0.70-1.20 [facility] Comment on above: Performed By: #### L 506.1000, L503.0105, L501.9985, L500.4100, L100.0100 #### [facility] [address] [place], [address] Serum globulin measurementOr dered By: Fortino Logan on 02-10-2025 Globulin (S) [Mass/Vol] 3.2 g/dL 2.2-4.2 [facility] Serum glucose measurement (m ass/volume)on 02-10-2025 Glucose [Mass/Vol] 90 mg/dL Normal 70-99 [facility] Comment on above: Performed By: #### L 506.1000, L503.0105, L501.9985, L500.4100, L100.0100 #### [facility] [address] [place], [address] Serum or plasma alanine elmore otransferase (ALT) measurementon 02-10-2025 ALT [Catalytic activity/Vol] 12 U/L Normal <=34 [facility] Comment on above: Performed By: #### L 506.1000, L503.0105, L501.9985, L500.4100, L100.0100 #### [facility] [address] [place], [address] Serum or plasma albumin elio urement (mass/volume)on 02-10-2025 Albumin [Mass/Vol] 3.8 g/dL Normal 3.5-5.0 [facility] Comment on above: Performed By: #### L 506.1000, L503.0105, L501.9985, L500.4100, L100.0100 #### [facility] [address] [place], [address] Serum or plasma albumin/glob ulin mass ratioOrdered By: Fortino Logan on 02-10-2025 Albumin/Globulin [Mass ratio] 1.2 {ratio} 0.9-2.4 [facility] Serum or plasma alkaline albaro sphatase measurementOrdered By: Fortino Logan on 02-10-2025 ALP [Catalytic activity/Vol] 64 U/L 35-104 [facility] Serum or plasma calcium elio urement (mass/volume)on 02-10-2025 Calcium [Mass/Vol] 8.5 mg/dL Normal 7.6-11.0 [facility] Comment on above: Performed By: #### L 506.1000, L503.0105, L501.9985, L500.4100, L100.0100 #### [facility] [address] [place], [place], [address] Serum or plasma cholesterol in HDL measurement (mass/volume)on 02-10-2025 Cholesterol in HDL [Mass/Vol] 41 mg/dL Normal [facility] Comment on above: National Cholesterol Education Program (NCEP) guidelines:<40 mg/dL: Low HDL-cholesterol (major risk factor for CHD)>= 60 mg/dL: High HDL-cholesterol (negative risk factor for CHD)HDL-cholesterol is affected by a number of factors, e.g. smoking, exercise, hormones, sex and age. Result Comment: [place] Cholesterol Education Program (NCEP) guidelines: <40 mg/dL: Low HDL-cholesterol (major risk factor for CHD) >= 60 mg/dL: High HDL-cholesterol (negative risk factor for CHD) HDL-cholesterol is affected by a number of factors, e.g. smoking, exercise, hormones, sex and age. Performed By: #### L 506.1000, L503.0105, L501.9985, L500.4100, L100.0100 #### [facility] [address] [place], [place], [address] Serum or plasma cholesterol measurement (mass/volume)on 02-10-2025 Cholesterol [Mass/Vol] 182 mg/dL Normal <=200 [facility] Comment on above: Cholesterol level, D esirable <200 mg/dLBorderline high cholesterol 200-239 mg/dLHigh cholesterol >=240 mg/dLRecommendations of the NCEP Adult Treatment Panel for the following risk-cutoff thresholds for the [place] population. Result Comment: Chol esterol level, Desirable <200 mg/dL Borderline high cholesterol 200-239 mg/dL High cholesterol >=240 mg/dL Recommendations of the NCEP Adult Treatment Panel for the following risk-cutoff thresholds for the [place] population. Performed By: #### L 506.1000, L503.0105, L501.9985, L500.4100, L100.0100 #### [facility] [address] [place], [address] Serum or plasma iron saturat ion measurement (mass fraction)Ordered By: Fortino Logan on 02-10-2025 Iron saturation [Mass fraction] 8.0 % Low 13-59 [facility] Serum or plasma urea nitroge n measurement (mass/volume)on 02-10-2025 Urea nitrogen [Mass/Vol] 7 mg/dL Normal 4-19 [facility] Comment on above: Performed By: #### L 506.1000, L503.0105, L501.9985, L500.4100, L100.0100 #### [facility] [address] [place], [place], [id number] Sodium levelon 02-10-2025 Sodium [Moles/Vol] 129 mmol/L Low 133-145 [facility] Comment on above: Performed By: #### L 506.1000, L503.0105, L501.9985, L500.4100, L100.0100 #### [facility] [address] [place], [address] TSH (EXTERNAL)on 02-10-2025 TSH Qn 12.3 m[IU]/L Abnormal [facility] TSH DL <= 0.005 mIU/L QnOrde red By: Fortino Logan on 02-10-2025 TSH Qn 12.300 uIU/mL High 0.300-4.20 0 [facility] Thyroid Stim Hormone (TSH)on 02-10-2025 TSH 12.300 uIU/mL High 0.300-4.20 0 [facility] Comment on above: Performed By: #### L 506.1000, L503.0105, L501.9985, L500.4100, L100.0100 #### [facility] [address] [place], [place], [id number] Total proteinOrdered By: Haim Logan on 02-10-2025 Protein [Mass/Vol] 7.0 g/dL 5.9-8.4 [facility] Triglycerides measurementon 02-10-2025 Triglyceride [Mass/Vol] 99 mg/dL Normal [facility] Comment on above: The drugs N-Acetylcy steine and Metamizole may falsely depress this assay. Normal range: <150 mg/dLBorderline High: 150-199 mg/dLHigh: 200-499 mg/dLVery High: >500 mg/dL Result Comment: The drugs N-Acetylcysteine and Metamizole may falsely depress this assay. Normal range: <150 mg/dL Borderline High: 150-199 mg/dL High: 200-499 mg/dL Very High: >500 mg/dL Performed By: #### L 506.1000, L503.0105, L501.9985, L500.4100, L100.0100 #### [facility] [address] [place], [address] Vitamin B12on 02-10-2025 Cobalamin (Vitamin B12) [Mass/Vol] 189 pg/mL Normal 180-914 [facility] Comment on above: Performed By: #### L 506.1000, L503.0105, L501.9985, L500.4100, L100.0100 #### [facility] [address] [place], [address] Vitamin B12 ser/plasOrdered By: Fortino Logan on 02-10-2025 Cobalamin (Vitamin B12) [Mass/Vol] 189 pg/mL 180-914 [facility] White blood cell (WBC) count on 02-10-2025 WBC (Bld) [#/Vol] 6.2 10*3/uL Normal 4.4-11.0 [facility] Comment on above: Performed By: #### L 506.1000, L503.0105, L501.9985, L500.4100, L100.0100 #### [facility] [address] [place], [address] [facility] Telephone (FAMPWS) ----- GRISELDABRENDA ([id number]) 1970 F Date Time Provider Department 02/09/25 [facility] During your visit today, we recorded the following information about you: Jd Toscano MA 02/09/2025 2:49 PM Signed Received fax from [employer] will not cover Advair. Preferred alternative Fluticasone salmeterol, wixelinhub See fax on PCP desk. ALF Gardner Jeffrey A, MD 02/09/2025 4:38 PM Signed The following approved medication requests have been transmitted electronically. Requested Prescriptions Signed Prescriptions Disp Refills WIXELA INHUB 250-50 mcg/dose inhaler 3 each 1 Sig: Inhale 1 puff as instructed two times a day. Authorizing Provider: FORTINO LOGAN MD Allergies As of Date: 02/09/2025 Noted Allergy Reaction MEDROL DOSE PACK (METHYLPREDNISOL*02/01/20 17 7 - Swelling Comments: Swelling of throat BACTRIM (SULFAMETHOXAZOLE) 08/12/2013 9 - Itching CARAFATE (SUCRALFATE) 05/31/2024 14 - Other: See Comments Comments: Made her constipated MORPHINE 08/12/2013 9 - Itching TRIMETHOPRIM 03/12/2019 14 - Other: See Comments 16 - Unknown ZOLOFT (SERTRALINE) 04/19/2020 14 - Other: See Comments Comments: Chest felt heavy. Date Reviewed: 01/04/2025 Reviewed by: Fortino Logan MD - Fully Assessed Reason for Visit: Medication Problem [65] Order(s):WIXELA INHUB 250-50 mcg/dose inhalerInhale 1 puff as instructed two times a day.Disp: 3 eachRfl: 1 Prescriptions as of 02/09/2025 - WIXELA INHUB 250-50 mcg/dose inhaler Inhale 1 puff as instructed two times a day. - SENOKOT 8.6 mg tab Take 1 tablet by mouth two times a day. - buPROPion SR (WELLBUTRIN SR) 100 mg 12 hr tablet Take one tab by mouth daily for two weeks and then go to taking one tablet twice a day. - FLUoxetine (PROZAC) 40 mg capsule Take 1 capsule by mouth two times a day. - levothyroxine (SYNTHROID) 88 mcg tablet Take one tab by mouth daily.Friday -Friday and none on Friday. - tiotropium (SPIRIVA) 18 mcg inhalation capsule Inhale 1 capsule as instructed once daily. - Dexlansoprazole 60 mg CpDM Take 60 mg by mouth one time only. - albuterol (PROVENTIL) 2.5 mg /3 mL (0.083 %) nebulizer solution Use 3 mL via nebulizer every 6 hours as needed for wheezing/shortness of breath. Use over 5-15minutes. - albuterol HFA (PROAIR HFA) 90 mcg/actuation inhaler USE 2 INHALATIONS EVERY 6 HOURS INSTRUCTED NEEDED - ipratropium-albuterol (DUONEB) 0.5 mg-3 mg(2.5 mg base)/3 mL nebu Inhale 3 mL as instructed two times a day. - Cholecalciferol, Vitamin D3, 50 mcg (2,000 unit) cap Take 1 capsule by mouth once daily. - cyanocobalamin (VITAMIN B-12) 1,000 mcg tab Take 1 tablet by mouth once daily. - ergocalciferol, vitamin D2, (VITAMIN D2 ORAL) Take by mouth. Medication notes this encounter ADVAIR DISKUS 250 MCG-50 MCG/DOSE POWDER FOR INHALATION >> Fortino Logan MD 02/09/2025 4:37 PM had to change to preferred Problem List As Of Date 02/09/2025 Noted Resolved Post-menopausal [Z78.0] COPD with asthma (HCC) [J44.89] Vitamin D deficiency [E55.9] Smoker [F17.200] 08/12/2013 Allergic rhinitis [J30.9] 09/03/2013 Insomnia [G47.00] 04/12/2014 Acquired hypothyroidism [E03.9] 04/25/2015 Constipation [K59.00] 08/23/2015 Encounter for gynecological examination without*04/17/2016 Well adult exam [Z00.00] 04/17/2016 Gastro-esophageal reflux disease with esophagit*10/18/2016 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] 10/18/2016 Encounter for screening for cardiovascular diso*10/18/2016 07/27/2024 Encounter for screening for diabetes mellitus [*10/18/2016 Elevated fasting blood sugar [R73.01] 04/18/2017 Encounter for screening mammogram for breast ca*04/22/2018 Dyslipidemia [E78.5] 04/22/2018 Spastic bladder [N32.89] 10/23/2018 Situational depression [F43.21] 04/19/2020 Varicose veins of bilateral lower extremities w*04/19/2020 Medication management [Z79.899] 04/19/2020 Vitamin B12 deficiency [E53.8] 10/25/2020 MURIEL (generalized anxiety disorder) [F41.1] 05/18/2021 Screening for colon cancer [Z12.11] 05/18/2021 OA (osteoarthrosis) [M19.90] 05/18/2021 Bilateral groin pain [R10.31, R10.32] 06/04/2023 Bilateral hip pain [M25.551, M25.552] 06/04/2023 Prescriptions ordered this encounter Disp Refills Start End WIXELA INHUB 250 MCG-50 MCG/DOSE POW* 3 ea* 1 02/09/2025 Cmt: Please explain to patient this is the same as Advair. Route: INHALATION Sig: Inhale 1 puff as instructed two times a day. Medications Discontinued During This Encounter Prescriptions - ADVAIR DISKUS 250-50 mcg/dose inhaler (Discontinued) Inhale 1 puff as instructed two times a day. Rinse and gargle mouth after use with water. Encounter Status:Closed by FORTINO LOGAN on 02/09/25 [facility] CNOVon 02-08-2025 CNOV Office Visit (FAMPWS ) ----- BRENDA VILLALOBOS ([id number]) 1970 F Date Time Provider Department 02/08/25 2:40 PM FORTINO LOGAN During your visit today, we recorded the following information about you: Pulse Respiration Blood pressure Weight 87/minute 20/minute 146/94 59.4 kg Fortino Logan MD 02/08/2025 4:05 PM Signed Chief Complaint Patient presents with: Follow Up HPI Brenda Villalobos is a 54 year old female who presents here today for 6 month follow up. Patient with COPD, dyslipidemia, hypothyroidism, insomnia, elevated fasting blood sugar, smoker, GERD, MURIEL, Depression, Vit D def and Vit B12 def as well as those reviewed and addressed below and in ROS. Patient doing ok. Prozac no longer helping like it had been. Patient has not been taking her B12 but has been taking her Vit D. Patient did have a scope in Oct 2024 per Gastro in [place] and was started on Dexlansoprazole 60 mg daily and told to f/u if needed. There was no subsequent f/u to see if her symptoms were improved or continuing. Patient says her GERD is only slightly improved Still getting the acid reflex daily. Still has the chronic epigastric pain. Has sinus headache's daily over the frontal sinuses and the back of her head. Wakes up with them. Is tired most days. Is a snore. Possible witnessed apnea Not aware if anybody in her family has migraine issues. Past medical history, appointments, medications, allergies reviewed. 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 Has been on omeprazole, pantoprazole and prevacid with no relief of symptoms. Nexium has been helpful and dexalant Insomnia 04/12/2014 OA (osteoarthrosis) 05/18/2021 Post-menopausal Situational depression 04/19/2020 Smoker 08/12/2013 Started at the age of 11 up to 1.5 PPD Spastic bladder 10/23/2018 Varicose veins of bilateral lower extremities with other complications 04/19/2020 bleeding at times Vitamin B12 deficiency 10/25/2020 Vitamin D deficiency Well adult exam 04/17/2016 last done: 04/19/20 Previous Surgical History PAST SURGICAL HISTORY Procedure Laterality Date 48 HOUR PH STUDY 09/13/2021 Demeester score-28.6; Dr. Gresham EGD TRANSORAL BIOPSY SINGLE/MULTIPLE 05/27/2016 EGD WITH BIOPSY(S) 09/13/2021 Dr. Gresham ESOPHAGOGASTRODUODENOSCOP Y TRANSORAL DIAGNOSTIC 03/16/2020 OFFICE LEEP 2001 TOTAL ABDOMINAL HYSTERECT W/WO RMVL TUBE OVARY Bilateral 2002 bso Family History FAMILY HISTORY Problem Relation Age of Onset COPD Mother Heart Mother Thyroid Mother Hypertension Mother Kidney Disease Mother Kidney failure Asthma Mother Breast Cancer Mother Seizures Brother Coronary Artery Disease Maternal Grandmother Thyroid Daughter Diabetes Son Type 1 Hypertension Son Asthma Son Alzheimer's Disease Paternal Uncle Prostate Cancer Paternal Uncle Ovarian cancer No Family History Colon Cancer No Family History Hyperlipidemia No Family History Stroke No Family History Patient Allergies ALLERGIES Allergen Reactions Medrol Dose Pack [M* Swelling Swelling of throat Bactrim [Sulfametho* Itching Carafate [Sucralfat* Other: See Comments Made her constipated Morphine Itching Trimethoprim Other: See Comments, Unknown Zoloft [Sertraline] Other: See Comments Chest felt heavy. Current Medications Current Outpatient Medications on File Prior to Visit Medication Sig Brompheniramine-Pseudoeph -DM (BROMFED DM) 2-30-10 mg/5 mL syrup Take 5 mL by mouth four times a day as needed. FLUoxetine (PROZAC) 40 mg capsule Take 1 capsule by mouth two times a day. levothyroxine (SYNTHROID) 88 mcg tablet Take one tab by mouth daily.Friday -Friday and none on Friday. fluticasone (FLONASE) 50 mcg/actuation nasal spray Use 2 Sprays in each nostril once daily. Rinse mouth after use. fluticasone-salmeterol (ADVAIR DISKUS) 250-50 mcg/dose inhaler Inhale 1 Puff as instructed two times a day. Rinse and gargle mouth after use with water. tiotropium (SPIRIVA) 18 mcg inhalation capsule Inhale 1 capsule as instructed once daily. Dexlansoprazole 60 mg CpDM Take 60 mg by mouth one time only. SENOKOT 8.6 mg tab Take 1 tablet by mouth two times a day. albuterol (PROVENTIL) 2.5 mg /3 mL (0.083 %) nebulizer solution Use 3 mL via nebulizer every 6 manny (more content not included)... Normal [facility] CNOVon 01-04-2025 CNOV Office Visit (JOSE ROBERTOPWS ) ----- BRENDA VILLALOBOS ([id number]) 1970 F Date Time Provider Department 01/04/25 11:00 AM FORTINO LOGAN During your visit today, we recorded the following information about you: Temperature Pulse Respiration Blood pressure 98.7 degrees 76/minute 22/minute 148/100 Fortino Logan MD 01/04/2025 1:19 PM Signed Chief Complaint Patient presents with: Flu Like Symptoms HPI Brenda Villalobos is a 54 year old female who presents here today for flu like symptoms. Patient was seen 12/27/2024 [facility]. Patient was also seen in on 12/31/2024. Tested positive for Flu but was outside the window for Tx with Tamiflu. Patient was placed on Augmentin 875 mg twice a day for 5 days along with a steroid taper. Patient continues to have a bad Headache and body aches. No fevers. No chills. Occasional ear pain. No fascial pain. Having white nasal drainage. Has some post nasal drainage. Mild sore throat. No increased shortness of breath or wheezing. No nausea or vomiting. No diarrhea since last week. Continues to have an occasional cough that has not been productive in the last two days. Past medical history, appointments, medications, allergies reviewed. 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 Has been on omeprazole, pantoprazole and prevacid with no relief of symptoms. Nexium has been helpful and dexalant Insomnia 04/12/2014 OA (osteoarthrosis) 05/18/2021 Post-menopausal Situational depression 04/19/2020 Smoker 08/12/2013 Started at the age of 11 up to 1.5 PPD Spastic bladder 10/23/2018 Varicose veins of bilateral lower extremities with other complications 04/19/2020 bleeding at times Vitamin B12 deficiency 10/25/2020 Vitamin D deficiency Well adult exam 04/17/2016 last done: 04/19/20 Previous Surgical History PAST SURGICAL HISTORY Procedure Laterality Date 48 HOUR PH STUDY 09/13/2021 Demeester score-28.6; Dr. Gresham EGD TRANSORAL BIOPSY SINGLE/MULTIPLE 05/27/2016 EGD WITH BIOPSY(S) 09/13/2021 Dr. Gresham ESOPHAGOGASTRODUODENOSCOP Y TRANSORAL DIAGNOSTIC 03/16/2020 OFFICE LEEP 2002 TOTAL ABDOMINAL HYSTERECT W/WO RMVL TUBE OVARY Bilateral 2003 bso Family History FAMILY HISTORY Problem Relation Age of Onset COPD Mother Heart Mother Thyroid Mother Hypertension Mother Kidney Disease Mother Kidney failure Asthma Mother Breast Cancer Mother Seizures Brother Coronary Artery Disease Maternal Grandmother Thyroid Daughter Diabetes Son Type 1 Hypertension Son Asthma Son Alzheimer's Disease Paternal Uncle Prostate Cancer Paternal Uncle Ovarian cancer No Family History Colon Cancer No Family History Hyperlipidemia No Family History Stroke No Family History Patient Allergies ALLERGIES Allergen Reactions Medrol Dose Pack [M* Swelling Swelling of throat Bactrim [Sulfametho* Itching Carafate [Sucralfat* Other: See Comments Made her constipated Morphine Itching Trimethoprim Other: See Comments, Unknown Zoloft [Sertraline] Other: See Comments Chest felt heavy. Current Medications Current Outpatient Medications on File Prior to Visit Medication Sig predniSONE (DELTASONE) 10 mg tablet Take 4 tablets by mouth once daily for 3 days, THEN 3 tablets once daily for 2 days, THEN 1 tablet once daily for 2 days. Brompheniramine-Pseudoeph -DM (BROMFED DM) 2-30-10 mg/5 mL syrup Take 5 mL by mouth four times a day as needed. amoxicillin-clavulanate potassium (AUGMENTIN) 875-125 mg per tablet Take 1 tablet by mouth two times a day for 5 days. FLUoxetine (PROZAC) 40 mg capsule Take 1 capsule by mouth two times a day. levothyroxine (SYNTHROID) 88 mcg tablet Take one tab by mouth daily.Friday -Friday and none on Friday. fluticasone (FLONASE) 50 mcg/actuation nasal spray Use 2 Sprays in each nostril once daily. Rinse mouth after use. fluticasone-salmeterol (ADVAIR DISKUS) 250-50 mcg/dose inhaler Inhale 1 Puff as instructed two times a day. Rinse and gargle mouth after use with water. tiotropium (SPIRIVA) 18 mcg inhalation capsule Inhale 1 capsule as instructed once daily. Dexlansoprazole 60 mg CpDM Take 60 mg by mouth one time only. SENOKOT 8.6 mg tab Take 1 tablet by mouth two times a day. albuterol (PROVENTIL) 2.5 mg /3 mL (0.083 %) nebulizer so (more content not included)... Normal [facility] XR CHEST 2V FRONTAL/LATon XR CHEST 2V FRONTAL/LAT * * *Final Repor t* * * DATE OF EXAM: Jan 04 2025 11:54AM WOX 5291 - XR CHEST 2V FRONTAL/LAT / PROCEDURE REASON: Abnormal breath sounds * * * * Physician Interpretation * * * * EXAMINATION: CHEST RADIOGRAPH (2 VIEW FRONTAL and LATERAL) CLINICAL HISTORY: Abnormal breath sounds MQ: XC2_6 EXAM DATE/TIME: 01/04/2025 11:54 AM COMPARISON: 04/07/2021 RESULT: Lines, tubes, and devices: None. Lungs and pleura: No consolidation. No lung mass. No pleural effusion. No pneumothorax. Cardiomediastinal silhouette: Normal cardiomediastinal silhouette. Bones and soft tissues: Unremarkable. IMPRESSION: No acute radiographic abnormality. Can Crimper: [facility] Transcribe Date/Time: Jan 04 2025 11:56A Dictated by : BIPIN LOMBARDO MD This examination was interpreted and the report reviewed and electronically signed by: BIPIN LOMBARDO MD on Jan 04 2025 11:57AM EST [id number] Normal [facility] XR Chest PA and Lateralon IMPRESSION: No acute radiographic abnormality. Can Crimper: [facility] Transcribe Date/Time: Jan 04 2025 11:56A Dictated by : BIPIN LOMBARDO MD This examination was interpreted and the report reviewed and electronically signed by: BIPIN LOMBARDO MD on Jan 04 2025 11:57AM EST DIVISION OF RADIOLOGY * * *Final Report* * * DATE OF EXAM: Jan 04 2025 11:54AM WOX 5291 - XR CHEST 2V FRONTAL/LAT / PROCEDURE REASON: Abnormal breath sounds * * * * Physician Interpretation * * * * EXAMINATION: CHEST RADIOGRAPH (2 VIEW FRONTAL & LATERAL) CLINICAL HISTORY: Abnormal breath sounds MQ: XC2_6 EXAM DATE/TIME: 01/04/2025 11:54 AM COMPARISON: 04/07/2021 RESULT: Lines, tubes, and devices: None. Lungs and pleura: No consolidation. No lung mass. No pleural effusion. No pneumothorax. Cardiomediastinal silhouette: Normal cardiomediastinal silhouette. Bones and soft tissues: Unremarkable. DIVISION OF RADIOLOGY Provider, [facility] - 01/04/2025 * * *Final Report* * * DATE OF EXAM: Jan 04 2025 11:54AM WOX 5291 - XR CHEST 2V FRONTAL/LAT / PROCEDURE REASON: Abnormal breath sounds * * * * Physician Interpretation * * * * EXAMINATION: CHEST RADIOGRAPH (2 VIEW FRONTAL & LATERAL) CLINICAL HISTORY: Abnormal breath sounds MQ: XC2_6 EXAM DATE/TIME: 01/04/2025 11:54 AM COMPARISON: 04/07/2021 RESULT: Lines, tubes, and devices: None. Lungs and pleura: No consolidation. No lung mass. No pleural effusion. No pneumothorax. Cardiomediastinal silhouette: Normal cardiomediastinal silhouette. Bones and soft tissues: Unremarkable. IMPRESSION IMPRESSION: No acute radiographic abnormality. Can Crimper: [facility]O Transcribe Date/Time: Jan 04 2025 11:56A Dictated by : BIPIN LOMBARDO MD This examination was interpreted and the report reviewed and electronically signed by: BIPIN LOMBARDO MD on Jan 04 2025 11:57AM EST [facility] Radiology Study observation (narrative) [facility] XR Chest PA and LateralOrder ed By: [facility] Provider on 01-04-2025 [facility] CNOVon 12-31-2024 CNOV Office Visit ([facility] ) ----- BRENDA VILLALOBOS ([id number]) 1970 F Date Time Provider Department 12/31/24 2:45 PM SARA VARGAS [facility] During your visit today, we recorded the following information about you: Temperature Pulse Respiration Blood pressure 98.5 degrees 78/minute 22/minute 147/88 Weight 59 kg Sara Vargas APRN.RN RECRUITMENT 12/31/2024 2:32 PM Signed [facility] Subjective Brenda Villalobos is a 54 year old female. Patient presents with: Cough: Chest congestion, sore throat x 1.5 week Cough Associated symptoms include sore throat, shortness of breath and wheezing. Pertinent negatives include no chest pain, no chills and no ear pain. Brenda Villalobos is a 54 year old female who presents with 10 days of cough, sore throat, nasal congestion, shortness of breath. She has history of COPD and feels her cough is productive of more sputum than normal and she is having more shortness of breath. She went to the ER who diagnosed her with the flu and put her on Prednisone 60 mg daily x 3 days. She has been using her inhalers as prescribed. She denies fever or chills. Review of Systems Constitutional: Negative for chills, fatigue and fever. HENT: Positive for congestion and sore throat. Negative for ear pain. Respiratory: Positive for cough, shortness of breath and wheezing. Cardiovascular: Negative for chest pain. Musculoskeletal: Negative. Objective BP 147/88 Pulse 78 Temp 36.9 ?C (98.5 ?F) Resp 22 Wt 59 kg (130 lb 1.1 oz) SpO2 98% BMI 23.41 kg/m? PAST MEDICAL HISTORY Diagnosis Date - Acquired hypothyroidism 04/25/2015 US 10/2017 showed enlarged right lobe but no nodules - Allergic rhinitis 09/03/2013 - ALEXYS III (cervical intraepithelial neoplasia grade III) with severe dysplasia - Constipation 08/23/2015 - COPD with asthma (HCC) - Dyslipidemia 04/22/2018 - Elevated fasting blood sugar 04/18/2017 - Endometriosis, site unspecified Endometriosis - MURIEL (generalized anxiety disorder) 05/18/2021 - Gastric hyperplasia 10/18/2016 - Gastro-esophageal reflux disease with esophagitis 10/18/2016 Patient with EGD proven esophagitis and gastric hyperplasia. Has been on omeprazole, pantoprazole and prevacid with no relief of symptoms. Nexium has been helpful and dexalant - Insomnia 04/12/2014 - OA (osteoarthrosis) 05/18/2021 - Post-menopausal - Situational depression 04/19/2020 - Smoker 08/12/2013 Started at the age of 11 up to 1.5 PPD - Spastic bladder 10/23/2018 - Varicose veins of bilateral lower extremities with other complications 04/19/2020 bleeding at times - Vitamin B12 deficiency 10/25/2020 - Vitamin D deficiency - Well adult exam 04/17/2016 last done: 04/19/20 PAST SURGICAL HISTORY Procedure Laterality Date - 48 HOUR PH STUDY 09/13/2021 Demeester score-28.6; Dr. Gresham - EGD TRANSORAL BIOPSY SINGLE/MULTIPLE 05/27/2016 - EGD WITH BIOPSY(S) 09/13/2021 Dr. Gresham - ESOPHAGOGASTRODUODENOSCOP Y TRANSORAL DIAGNOSTIC 03/16/2020 - OFFICE LEEP 2001 - TOTAL ABDOMINAL HYSTERECT W/WO RMVL TUBE OVARY Bilateral 2002 bso ALLERGIES Medrol Dose Pack [Methylprednisolone], Bactrim [Sulfamethoxazole], Carafate [Sucralfate], Morphine, Trimethoprim, and Zoloft [Sertraline] MEDICATIONS - predniSONE (DELTASONE) 10 mg tablet Take 4 tablets by mouth once daily for 3 days, THEN 3 tablets once daily for 2 days, THEN 1 tablet once daily for 2 days. - Brompheniramine-Pseudoeph -DM (BROMFED DM) 2-30-10 mg/5 mL syrup Take 5 mL by mouth four times a day as needed. - amoxicillin-clavulanate potassium (AUGMENTIN) 875-125 mg per tablet Take 1 tablet by mouth two times a day for 5 days. - mupirocin (BACTROBAN) 2 % ointment Apply to affected area three times a day for 10 days. - FLUoxetine (PROZAC) 40 mg capsule Take 1 capsule by mouth two times a day. - levothyroxine (SYNTHROID) 88 mcg tablet Take one tab by mouth daily.Friday -Friday and none on Friday. - fluticasone (FLONASE) 50 mcg/actuation nasal spray Use 2 Sprays in each nostril once daily. Rinse mouth after use. - fluticasone-salmeterol (ADVAIR DISKUS) 250-50 mcg/dose inhaler Inhale 1 Puff as instructed two times a day. Rinse and gargle mouth after use with water. - tiotropium (SPIRIVA) 18 mcg inhalation capsule Inhale 1 capsule as instructed once daily. - Dexlansoprazole 60 mg CpDM Take 60 mg by mouth one time only. - SENOKOT 8.6 mg tab Take 1 tablet by mouth two times a day. - albuterol (PROVENTIL) 2.5 mg /3 mL (0.083 %) nebulizer solution Use 3 mL via nebulizer every 6 hours as needed for wheezing/shortness of breath. Use over 5-15minutes. - albuterol HFA (PROAIR HFA) 90 mcg/actuation inhaler USE 2 INHALATIONS EVERY 6 HOURS INSTRUCTED NEEDED - ipratropium-albuterol (DUONEB) 0.5 mg-3 mg(2.5 mg base)/3 mL nebu Inhale 3 mL as instructed two times a day. - Cholecalciferol, (more content not included)... Normal [facility] Chest 1 View (Portable)on Chest 1 View (Portable) [facility] Imaging Services [address] [place] [address] Chest 1 View (Portable) MR#: [id number] Acct: [id number] Name: BRENDA VILLALOBOS Rep #: [id number] : 1970 F 54 From: Chikis Ren DO PCP: Dr. Fortino Logan MD Status: [facility] ER Study: Chest 1 View (Portable) Date of Exam: 12/27/24 Exam# [id number] Ordering Dr: Francesco Alexander DO PROCEDURE: CHEST 1 VIEW (PORTABLE) 12/27/2024 REASON FOR EXAM: COUG COPD TECHNIQUE: Frontal view of the chest. COMPARISON: Chest radiograph dated 08/28/2023. FINDINGS: The heart size is normal. The lungs are clear. The bones are unremarkable. RAD/Chest 1 View (Portable) IMPRESSION: Negative Chest. [facility] CC: Dr. Franecsco Alexander DO; Dr. Fortino Logan MD Can Crimper: Signed Normal [facility] Emergency Department Summary on 12-27-2024 Emergency Department Summary [facility] Medical Records Department [address] [place] [address] Emergency Department Summary 12/27/24 MR#: [id number] Acct: [id number] Name: BRENDA VILLALOBOS Rep #: [id number] : 1970 54 From: Francesco Alexander DO PCP: Dr. Fortino Logan MD Status:DEP ER Location: ED HPI History of Present Illness Chief Complaint: Headache Informant: patient and family Narrative Narrative: 54-year-old female history of COPD presenting to the emergency room with chief complaint of headache and vomiting. Patient states that about a week ago she began to have intermittent frontal and occipital headache with nausea and vomiting. She states that she has developed congestion in the nose and rhinorrhea. She denies any fevers. Coughing seems to make the headache worse. She notes a sore throat. No reported rashes. [facility] Medical History Wears dentures Thyroid disease History of IBS Gastric reflux Smoker Former smoker Shortness of breath on exertion Chronic cough Vitamin D deficiency Vitamin B12 deficiency Varicose veins of bilateral lower extremities with other complications Spastic bladder Depression Osteoarthritis Insomnia MURIEL (generalized anxiety disorder) Endometriosis Elevated fasting blood sugar Dyslipidemia COPD with asthma Constipation ALEXYS II (cervical intraepithelial neoplasia II) Allergic rhinitis Acquired hypothyroidism Gastric hyperplasia Home Medications ???Medication ???Instructions ???Recorded ???Last Taken ???Type albuterol sulfate 2.5 mg/3 mL 2.5 mg inhalation Q4HWA.RT SOB Unknown History (0.083 %) solution for nebulization albuterol sulfate 90 mcg/actuation 2 puff inhalation Q4H PRN PRN So b 09/28/18 Unknown History aerosol inhaler (ProAir HFA) /Or Wheezing cholecalciferol (vitamin D3) 25 2,000 unit PO DAILY 09/28/18 Unkno wn History mcg (1,000 unit) tablet (Vitamin D3) esomeprazole magnesium 40 mg 40 mg PO DAILY 09/28/18 Unknown Hi story capsule,delayed release (Nexium) hydroxyzine pamoate 25 mg capsule 25 mg PO QHS PRN anxiety 09/28/18 Unknown History levothyroxine 88 mcg tablet 88 mcg PO DAILY 09/28/18 Unknown H istory sennosides 8.6 mg tablet (senna) 8.6 mg PO DAILY 09/28/18 Unknown H istory ibuprofen 800 mg tablet 600 mg (0.75 x 800 mg) PO TID PRN 03/12/19 Unknown Rx PRN Pain #20 tabs famotidine 20 mg tablet 20 mg PO DAILY 12/27/22 Unknown Hi story fluoxetine 40 mg capsule 40 mg PO DAILY 12/27/22 Unknown Hi story ondansetron 4 mg disintegrating 4 mg PO Q6H 12/27/22 Unknown Histo ry tablet dexlansoprazole 60 mg 60 mg PO DAILY 12/27/24 Unknown Hi story capsule,biphase delayed release fluticasone 250 mcg-salmeterol 50 1 ea inhalation BID 12/27/24 Unkn own History mcg/dose blistr powdr for inhalation fluticasone propionate 50 1 spray intranasal Q12H 12/27/24 U nknown History mcg/actuation nasal spray,suspension mupirocin 2 % topical ointment 1 applic topical TID 12/27/24 Unkn own History tiotropium bromide 18 mcg capsule 1 cap inhalation DAILY 12/27/24 U nknown History with inhalation device (Spiriva with HandiHaler) Allergy/AdvReac Type Severity Reaction Status Date / Time methylprednisolone (From Allergy Swelling Verified 12/27/24 19:43 Medrol) morphine Allergy Itching Verified 12/27/24 19:43 sulfamethoxazole (From Allergy Itching Verified 12/27/24 19:43 Bactrim) trimethoprim (From Bactrim) Allergy Itching Verified 12/27/24 19:43 Family History Mother COPD (chronic obstructive pulmonary disease) Heart disease Thyroid disorder Hypertension Kidney disease Asthma Breast cancer Brother Seizures Sister Thyroid disorder Son Thyroid disorder Diabetes Asthma Hypertension Surgical History H/O total hysterectomy Social History Smoking Status: Heavy Smoker (>10/day) alcohol intake: never ROS ROS ED Constitutional Constitutional ED: Reports chills and sweats; Denies fever(s) or weight loss Eyes Eyes: Denies change in vision or diplopia ENT ENT ED: Reports rhinorrhea and sore throat; Denies ear pain Cardiovascular Cardiovascular: Denies chest pain, orthopnea, palpitations or racing heartbeat Respiratory/Chest Respiratory/Chest: Reports cough and dyspnea; Denies orthopnea Gastrointestinal Gastrointestinal: Reports nausea and vomiting; Denies abdominal pain or diarrhea Genitourinary Genitourinary ED: Denies dysuria, hematuria or urinary frequency Musculoskeletal Musculoskeletal: Reports myalgias and neck pain; Denies arthralgias Integumentary Denies ab (more content not included)... Normal [facility] Influenza virus A and B and SARS-CoV-2 (COVID-19) and Respiratory syncytial virus RNAOrdered By: Francesco Alexander on 12-27-2024 SARS-CoV-2 (COVID-19) RNA ZEB+probe Ql (Unsp spec) Influenzae A Abnormal [facility] M100.678on 12-27-2024 M100.678 Copy of report sent to Infection Control Printer MS#[id number] 12/27/242119 ELVIA. RESULTS CALLED TO ANTHONY MARRUFO 12/27/242119 Katina Gipson. REPORT READ BACK BY SAME. FLUABV+SARS-CoV-2+RSV Pnl Resp ZEB+probe FLUABV+SARS-CoV-2+RSV Pnl Resp ZEB+probe SARS-CoV-2 (COVID 19) Negative INFLUENZA A A Positive A INFLUENZA B Negative RSV PCR Negative INFLUENZAE A Normal [facility] Comment on above: Performed By: #### M 100.678 #### [facility] [address] [place], [address] OV 12-24-2024 [facility] Office Visit ([facility] ) ----- GRISELDABRENDA Bustamante ([id number]) 1970 F Date Time Provider Department 12/24/24 1:15 PM NAILA TOSCANO [facility] During your visit today, we recorded the following information about you: Temperature Pulse Respiration Blood pressure 99.2 degrees 91/minute 18/minute 151/93 Weight 59.4 kg Naila Toscano, ZITA.RN RECRUITMENT 12/24/2024 1:33 PM Signed [facility] Subjective Brenda Villalobos is a 54 year old female. Patient presents with: Head Congestion: Sinus congestion, pain and pressure, ADAIR, nausea, upset stomach x2 days Patient came in with complaints of sinus congestion and cough. Patient said that started 2 days ago. Patient denies sore throat or increased shortness of breath at her normal. Patient also has a tiny spot on the left side of her chin that she thinks could be infected. The history is provided by the patient. No specialized language instructor was used. Review of Systems Constitutional: Negative. HENT: Positive for sinus pressure. Respiratory: Positive for cough. Objective BP 151/93 Pulse 91 Temp 37.3 ?C (99.2 ?F) Resp 18 Wt 59.4 kg (130 lb 15.3 oz) SpO2 95% BMI 23.57 kg/m? Physical Exam Constitutional: Appearance: Normal appearance. HENT: Right Ear: Tympanic membrane, ear canal and external ear normal. Left Ear: Tympanic membrane, ear canal and external ear normal. Mouth/Throat: Mouth: Mucous membranes are moist. Pharynx: No posterior oropharyngeal erythema. Eyes: Pupils: Pupils are equal, round, and reactive to light. Neck: Comments: Small pea-sized reddened area located in the area marked above Cardiovascular: Rate and Rhythm: Normal rate and regular rhythm. Heart sounds: Normal heart sounds. Pulmonary: Effort: Pulmonary effort is normal. Breath sounds: Normal breath sounds. Neurological: Mental Status: She is alert. PAST MEDICAL HISTORY Diagnosis Date Acquired hypothyroidism 04/25/2015 US 10/2017 showed enlarged right lobe but no nodules Allergic rhinitis 09/03/2013 ALEXYS III (cervical intraepithelial neoplasia grade III) with severe dysplasia Constipation 08/23/2015 COPD with asthma (HCC) Dyslipidemia 04/22/2018 Elevated fasting blood sugar 04/18/2017 Endometriosis, site unspecified Endometriosis MURIEL (generalized anxiety disorder) 05/18/2021 Gastric hyperplasia 10/18/2016 Gastro-esophageal reflux disease with esophagitis 10/18/2016 Patient with EGD proven esophagitis and gastric hyperplasia. Has been on omeprazole, pantoprazole and prevacid with no relief of symptoms. Nexium has been helpful and dexalant Insomnia 04/12/2014 OA (osteoarthrosis) 05/18/2021 Post-menopausal Situational depression 04/19/2020 Smoker 08/12/2013 Started at the age of 11 up to 1.5 PPD Spastic bladder 10/23/2018 Varicose veins of bilateral lower extremities with other complications 04/19/2020 bleeding at times Vitamin B12 deficiency 10/25/2020 Vitamin D deficiency Well adult exam 04/17/2016 last done: 04/19/20 PAST SURGICAL HISTORY Procedure Laterality Date 48 HOUR PH STUDY 09/13/2021 Demeester score-28.6; Dr. Gresham EGD TRANSORAL BIOPSY SINGLE/MULTIPLE 05/27/2016 EGD WITH BIOPSY(S) 09/13/2021 Dr. Gresham ESOPHAGOGASTRODUODENOSCOP Y TRANSORAL DIAGNOSTIC 03/16/2020 OFFICE [facility] 2001 TOTAL ABDOMINAL HYSTERECT W/WO RMVL TUBE OVARY Bilateral 2002 bso ALLERGIES Medrol Dose Pack [Methylprednisolone], Bactrim [Sulfamethoxazole], Carafate [Sucralfate], Morphine, Trimethoprim, and Zoloft [Sertraline] MEDICATIONS mupirocin (BACTROBAN) 2 % ointment Apply to affected area three times a day for 10 days. FLUoxetine (PROZAC) 40 mg capsule Take 1 capsule by mouth two times a day. levothyroxine (SYNTHROID) 88 mcg tablet Take one tab by mouth daily.Friday -Friday and none on Friday. fluticasone (FLONASE) 50 mcg/actuation nasal spray Use 2 Sprays in each nostril once daily. Rinse mouth after use. fluticasone-salmeterol (ADVAIR DISKUS) 250-50 mcg/dose inhaler Inhale 1 Puff as instructed two times a day. Rinse and gargle mouth after use with water. tiotropium (SPIRIVA) 18 mcg inhalation capsule Inhale 1 capsule as instructed once daily. Dexlansoprazole 60 mg CpDM Take 60 mg by mouth one time only. SENOKOT 8.6 mg tab Take 1 tablet by mouth two times a day. albuterol (PROVENTIL) 2.5 mg /3 mL (0.083 %) nebulizer solution Use 3 mL via nebulizer every 6 hours as needed for wheezing/shortness of breath. Use over 5-15minutes. albuterol HFA (PROAIR HFA) 90 mcg/actuation inhaler USE 2 INHALATIONS EVERY 6 HOURS INSTRUCTED NEEDED ipratropium-albuterol (DUONEB) 0.5 mg-3 mg(2.5 mg base)/3 mL nebu Inhale 3 mL as instructed two times a day. Cholecalciferol, Vitamin D3, 50 mcg (2,000 unit) cap Take 1 capsule by mouth once daily. cyanocobalamin (VITAMIN B-12) 1,000 mcg tab Take 1 tablet by mouth once daily. ergocalcifer (more content not included)... Normal [facility] Jesse 11[facility]20[facility] FARABRENDA LEMON ([id number]) 1970 F Date Time Provider Department 11/15/24 JD TOSCANO During your visit today, we recorded the following information about you: Jd Toscano MA 11/15/2024 9:04 AM Signed Scan on 11/10/2024 3:39 PM by Provider, ROSA ELENA Best: Hematology Scan on 11/10/2024 3:41 PM by Provider, ROSA ELENA Best: Chemistry Please review results. ALF Gardner Danielle, APRN.RN RECRUITMENT 11/15/2024 11:09 AM Signed Please let patient know their labs are stable. Anjelica Almonte RN 11/15/2024 1:15 PM Signed Called and left a voicemail for the Patient to call back and ask for a nurse to receive the providers message. KEVIN Mullins Stephanie, RN 11/15/2024 2:32 PM Signed Patient notified of results. Patient verbalizes understanding. Ayana Bland RN Allergies As of Date: 11/15/2024 Noted Allergy Reaction MEDROL DOSE PACK (METHYLPREDNISOL*02/01/20 17 7 - Swelling Comments: Swelling of throat BACTRIM (SULFAMETHOXAZOLE) 08/12/2013 9 - Itching CARAFATE (SUCRALFATE) 05/31/2024 14 - Other: See Comments Comments: Made her constipated MORPHINE 08/12/2013 9 - Itching TRIMETHOPRIM 03/12/2019 14 - Other: See Comments 16 - Unknown ZOLOFT (SERTRALINE) 04/19/2020 14 - Other: See Comments Comments: Chest felt heavy. Date Reviewed: 11/12/2024 Reviewed by: Sj Pedro MA - Fully Assessed Reason for Visit: Results [95] Prescriptions as of 11/15/2024 - FLUoxetine (PROZAC) 40 mg capsule Take 1 capsule by mouth two times a day. - Dexlansoprazole 60 mg CpDM Take 60 mg by mouth one time only. - fluticasone-salmeterol (ADVAIR DISKUS) 250-50 mcg/dose inhaler Inhale 1 Puff as instructed two times a day. Rinse and gargle mouth after use with water. - fluticasone (FLONASE) 50 mcg/actuation nasal spray Use 2 Sprays in each nostril once daily. Rinse mouth after use. - SENOKOT 8.6 mg tab Take 1 tablet by mouth two times a day. - busPIRone (BUSPAR) 15 mg tablet Take 1.5 tabs twice a day. - levothyroxine (SYNTHROID) 88 mcg tablet Take one tab by mouth daily.Friday -Friday and none on Friday. - tiotropium (SPIRIVA) 18 mcg inhalation capsule Inhale 1 capsule as instructed once daily. - albuterol (PROVENTIL) 2.5 mg /3 mL (0.083 %) nebulizer solution Use 3 mL via nebulizer every 6 hours as needed for wheezing/shortness of breath. Use over 5-15minutes. - albuterol HFA (PROAIR HFA) 90 mcg/actuation inhaler USE 2 INHALATIONS EVERY 6 HOURS INSTRUCTED NEEDED - ipratropium-albuterol (DUONEB) 0.5 mg-3 mg(2.5 mg base)/3 mL nebu Inhale 3 mL as instructed two times a day. - Cholecalciferol, Vitamin D3, 50 mcg (2,000 unit) cap Take 1 capsule by mouth once daily. - cyanocobalamin (VITAMIN B-12) 1,000 mcg tab Take 1 tablet by mouth once daily. - ergocalciferol, vitamin D2, (VITAMIN D2 ORAL) Take by mouth. Problem List As Of Date 11/15/2024 Noted Resolved Post-menopausal [Z78.0] COPD with asthma (HCC) [J44.89] Vitamin D deficiency [E55.9] Smoker [F17.200] 08/12/2013 Allergic rhinitis [J30.9] 09/03/2013 Insomnia [G47.00] 04/12/2014 Acquired hypothyroidism [E03.9] 04/25/2015 Constipation [K59.00] 08/23/2015 Encounter for gynecological examination without*04/17/2016 Well adult exam [Z00.00] 04/17/2016 Gastro-esophageal reflux disease with esophagit*10/18/2016 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] 10/18/2016 Encounter for screening for cardiovascular diso*10/18/2016 07/27/2024 Encounter for screening for diabetes mellitus [*10/18/2016 Elevated fasting blood sugar [R73.01] 04/18/2017 Encounter for screening mammogram for breast ca*04/22/2018 Dyslipidemia [E78.5] 04/22/2018 Spastic bladder [N32.89] 10/23/2018 Situational depression [F43.21] 04/19/2020 Varicose veins of bilateral lower extremities w*04/19/2020 Medication management [Z79.899] 04/19/2020 Vitamin B12 deficiency [E53.8] 10/25/2020 MURIEL (generalized anxiety disorder) [F41.1] 05/18/2021 Screening for colon cancer [Z12.11] 05/18/2021 OA (osteoarthrosis) [M19.90] 05/18/2021 Bilateral groin pain [R10.31, R10.32] 06/04/2023 Bilateral hip pain [M25.551, M25.552] 06/04/2023 Encounter Status:Closed by AYANA BLAND on 11/15/24 [facility] Jorge 11-12-2024 CNOV Office Visit ([facility] ) ----- BRENDA VILLALOBOS ([id number]) 1970 F Date Time Provider Department 11/12/24 2:40 PM MELANY BLANC During your visit today, we recorded the following information about you: Pulse Blood pressure Weight 71/minute 145/83 62.1 kg Melany Blanc APRN.RN RECRUITMENT 11/12/2024 2:58 PM Signed Chief Complaint Patient presents with: Follow Up HPI Brenda Villalobos is a 54 year old female who presents here today for Above Complaints.. Patient presents today for 1 month follow up. Pt states she has no concerns for her health today. She has been taking her medications without complication. Patient states her anxiety has been okay she feels that it has been more controlled since her last visit. Pt states Fluoxetine has been working better than Buspar. Pt denies fever, chills, nausea, vomiting, chest pain and headaches. Past medical history, appointments, medications, allergies reviewed. 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 Has been on omeprazole, pantoprazole and prevacid with no relief of symptoms. Nexium has been helpful and dexalant Insomnia 04/12/2014 OA (osteoarthrosis) 05/18/2021 Post-menopausal Situational depression 04/19/2020 Smoker 08/12/2013 Started at the age of 11 up to 1.5 PPD Spastic bladder 10/23/2018 Varicose veins of bilateral lower extremities with other complications 04/19/2020 bleeding at times Vitamin B12 deficiency 10/25/2020 Vitamin D deficiency Well adult exam 04/17/2016 last done: 04/19/20 Previous Surgical History PAST SURGICAL HISTORY Procedure Laterality Date 48 HOUR PH STUDY 09/13/2021 Demeester score-28.6; Dr. Gresham EGD TRANSORAL BIOPSY SINGLE/MULTIPLE 05/27/2016 EGD WITH BIOPSY(S) 09/13/2021 Dr. Gresham ESOPHAGOGASTRODUODENOSCOP Y TRANSORAL DIAGNOSTIC 03/16/2020 OFFICE LEEP 2001 TOTAL ABDOMINAL HYSTERECT W/WO RMVL TUBE OVARY Bilateral 2002 bso Family History FAMILY HISTORY Problem Relation Age of Onset COPD Mother Heart Mother Thyroid Mother Hypertension Mother Kidney Disease Mother Kidney failure Asthma Mother Breast Cancer Mother Seizures Brother Coronary Artery Disease Maternal Grandmother Thyroid Daughter Diabetes Son Type 1 Hypertension Son Asthma Son Alzheimer's Disease Paternal Uncle Prostate Cancer Paternal Uncle Ovarian cancer No Family History Colon Cancer No Family History Hyperlipidemia No Family History Stroke No Family History Patient Allergies ALLERGIES Allergen Reactions Medrol Dose Pack [M* Swelling Swelling of throat Bactrim [Sulfametho* Itching Carafate [Sucralfat* Other: See Comments Made her constipated Morphine Itching Trimethoprim Other: See Comments, Unknown Zoloft [Sertraline] Other: See Comments Chest felt heavy. Current Medications Current Outpatient Medications on File Prior to Visit Medication Sig FLUoxetine (PROZAC) 40 mg capsule Take 1 capsule by mouth two times a day. fluticasone-salmeterol (ADVAIR DISKUS) 250-50 mcg/dose inhaler Inhale 1 Puff as instructed two times a day. Rinse and gargle mouth after use with water. fluticasone (FLONASE) 50 mcg/actuation nasal spray Use 2 Sprays in each nostril once daily. Rinse mouth after use. SENOKOT 8.6 mg tab Take 1 tablet by mouth two times a day. busPIRone (BUSPAR) 15 mg tablet Take 1.5 tabs twice a day. levothyroxine (SYNTHROID) 88 mcg tablet Take one tab by mouth daily.Friday -Friday and none on Friday. esomeprazole (NEXIUM) 40 mg capsule Take 1 capsule by mouth two times a day before meals. tiotropium (SPIRIVA) 18 mcg inhalation capsule Inhale 1 capsule as instructed once daily. albuterol (PROVENTIL) 2.5 mg /3 mL (0.083 %) nebulizer solution Use 3 mL via nebulizer every 6 hours as needed for wheezing/shortness of breath. Use over 5-15minutes. albuterol HFA (PROAIR HFA) 90 mcg/actuation inhaler USE 2 INHALATIONS EVERY 6 HOURS INSTRUCTED NEEDED ipratropium-albuterol (DUONEB) 0.5 mg-3 mg(2.5 mg base)/3 mL nebu Inhale 3 mL as instructed two times a day. Cholecalciferol, Vitamin D3, 50 mcg (2,000 unit) cap Take 1 capsule by mouth once daily. cyanocobalamin (VITAMIN B-12) 1,000 mcg tab Take 1 tablet by mouth once daily. ergocalciferol, vitamin D2, (VITAMIN D2 ORAL) Take by mouth. No current f (more content not included)... Normal [facility] CNPNon 11-12-2024 [facility] ----- BRENDA VILLALOBOS ([id number]) 1970 F Date Time Provider Department 11/12/24 MELANY BLANC [facility] During your visit today, we recorded the following information about you: Dari Ozuna MA 11/12/2024 11:44 AM Signed Labs done at [facility]. View External Labs - Hematology [ID [id number]] Allergies As of Date: 11/12/2024 Noted Allergy Reaction MEDROL DOSE PACK (METHYLPREDNISOL*02/01/20 17 7 - Swelling Comments: Swelling of throat BACTRIM (SULFAMETHOXAZOLE) 08/12/2013 9 - Itching CARAFATE (SUCRALFATE) 05/31/2024 14 - Other: See Comments Comments: Made her constipated MORPHINE 08/12/2013 9 - Itching TRIMETHOPRIM 03/12/2019 14 - Other: See Comments 16 - Unknown ZOLOFT (SERTRALINE) 04/19/2020 14 - Other: See Comments Comments: Chest felt heavy. Date Reviewed: 10/08/2024 Reviewed by: Sj Pedro MA - Fully Assessed Reason for Visit: Results [95] Cmt: Prescriptions as of 11/12/2024 - FLUoxetine (PROZAC) 40 mg capsule Take 1 capsule by mouth two times a day. - fluticasone-salmeterol (ADVAIR DISKUS) 250-50 mcg/dose inhaler Inhale 1 Puff as instructed two times a day. Rinse and gargle mouth after use with water. - fluticasone (FLONASE) 50 mcg/actuation nasal spray Use 2 Sprays in each nostril once daily. Rinse mouth after use. - SENOKOT 8.6 mg tab Take 1 tablet by mouth two times a day. - busPIRone (BUSPAR) 15 mg tablet Take 1.5 tabs twice a day. - levothyroxine (SYNTHROID) 88 mcg tablet Take one tab by mouth daily.Friday -Friday and none on Friday. - esomeprazole (NEXIUM) 40 mg capsule Take 1 capsule by mouth two times a day before meals. - tiotropium (SPIRIVA) 18 mcg inhalation capsule Inhale 1 capsule as instructed once daily. - albuterol (PROVENTIL) 2.5 mg /3 mL (0.083 %) nebulizer solution Use 3 mL via nebulizer every 6 hours as needed for wheezing/shortness of breath. Use over 5-15minutes. - albuterol HFA (PROAIR HFA) 90 mcg/actuation inhaler USE 2 INHALATIONS EVERY 6 HOURS INSTRUCTED NEEDED - ipratropium-albuterol (DUONEB) 0.5 mg-3 mg(2.5 mg base)/3 mL nebu Inhale 3 mL as instructed two times a day. - Cholecalciferol, Vitamin D3, 50 mcg (2,000 unit) cap Take 1 capsule by mouth once daily. - cyanocobalamin (VITAMIN B-12) 1,000 mcg tab Take 1 tablet by mouth once daily. - ergocalciferol, vitamin D2, (VITAMIN D2 ORAL) Take by mouth. Problem List As Of Date 11/12/2024 Noted Resolved Post-menopausal [Z78.0] COPD with asthma (HCC) [J44.89] Vitamin D deficiency [E55.9] Smoker [F17.200] 08/12/2013 Allergic rhinitis [J30.9] 09/03/2013 Insomnia [G47.00] 04/12/2014 Acquired hypothyroidism [E03.9] 04/25/2015 Constipation [K59.00] 08/23/2015 Encounter for gynecological examination without*04/17/2016 Well adult exam [Z00.00] 04/17/2016 Gastro-esophageal reflux disease with esophagit*10/18/2016 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] 10/18/2016 Encounter for screening for cardiovascular diso*10/18/2016 07/27/2024 Encounter for screening for diabetes mellitus [*10/18/2016 Elevated fasting blood sugar [R73.01] 04/18/2017 Encounter for screening mammogram for breast ca*04/22/2018 Dyslipidemia [E78.5] 04/22/2018 Spastic bladder [N32.89] 10/23/2018 Situational depression [F43.21] 04/19/2020 Varicose veins of bilateral lower extremities w*04/19/2020 Medication management [Z79.899] 04/19/2020 Vitamin B12 deficiency [E53.8] 10/25/2020 MURIEL (generalized anxiety disorder) [F41.1] 05/18/2021 Screening for colon cancer [Z12.11] 05/18/2021 OA (osteoarthrosis) [M19.90] 05/18/2021 Bilateral groin pain [R10.31, R10.32] 06/04/2023 Bilateral hip pain [M25.551, M25.552] 06/04/2023 Encounter Status:Closed by MELANY BLANC on 11/12/24 Normal [facility] Absolute neutrophil countOrd ered By: Melany Blanc on 11-10-2024 Neutrophils (Bld) [#/Vol] 3.7 10*3/uL 2.0-7.7 [facility] Basophil percentageOrdered B y: Melany Blanc on 11-10-2024 Basophils/100 WBC (Bld) 0.6 % 0-1 [facility] CBC W/Diff, Automatedon 10-14 Absolute Lymph 2.20 X10 3/uL Normal 0.83-4.51 [facility] Comment on above: Performed By: #### L 100.0100 #### [facility] [address] [place], [address] Absolute Neut 3.7 X10 3/uL Normal 2.0-7.7 [facility] Comment on above: Performed By: #### L 100.0100 #### [facility] [address] [place], [address] Basophils/100 WBC (Bld) 0.6 % Normal 0-1 [facility] Comment on above: Performed By: #### L 100.0100 #### [facility] [address] [place], [address] Eosinophils/100 WBC (Bld) 2.0 % Normal 0-5 [facility] Comment on above: Performed By: #### L 100.0100 #### [facility] [address] [place], [address] Erythrocyte distribution width (RBC) [Ratio] 13.9 % Normal 11.6-14.6 [facility] Comment on above: Performed By: #### L 100.0100 #### [facility] [address] [place], [address] Hematocrit (Bld) [Volume fraction] 32.0 % Low 37-47 [facility] Comment on above: Performed By: #### L 100.0100 #### [facility] [address] [place], [address] Hemoglobin (Bld) [Mass/Vol] 10.8 g/dL Low 12.0-15.0 [facility] Comment on above: Performed By: #### L 100.0100 #### [facility] [address] [place], [address] IG% 0.600 Normal 0.0-0.9 [facility] Comment on above: Result Comment: IG% - Immature Granulocytes (promyelocytes, myelocytes and metamyelocytes) > 1% indicates that a LEFT SHIFT is Present. Performed By: #### L 100.0100 #### [facility] [address] [place], [address] Lymphocytes/100 WBC (Bld) 32.1 % Normal 19-41 [facility] Comment on above: Performed By: #### L 100.0100 #### [facility] [address] [place], [address] MCH (RBC) [Entitic mass] 28.4 pg Normal 27.0-32.0 [facility] Comment on above: Performed By: #### L 100.0100 #### [facility] [address] [place], [address] MCHC (RBC) [Mass/Vol] 33.8 g/dL Normal 32-36 [facility] Comment on above: Performed By: #### L 100.0100 #### [facility] [address] [place], [address] MCV (RBC) [Entitic vol] 84.2 fL Normal 81-99 [facility] Comment on above: Performed By: #### L 100.0100 #### [facility] [address] [place], [address] Monocytes/100 WBC (Bld) 10.7 % High 0-10 [facility] Comment on above: Performed By: #### L 100.0100 #### [facility] [address] [place], [address] Neutrophils/100 WBC (Bld) 54.0 % Normal 47-70 [facility] Comment on above: Performed By: #### L 100.0100 #### [facility] [address] [place], [address] Nucleated RBC (Bld) [#/Vol] 0 10*3/uL Normal 0-5 [facility] Comment on above: Performed By: #### L 100.0100 #### [facility] [address] [place], [address] Platelet mean volume (Bld) [Entitic vol] 8.3 fL Normal 6.2-12.0 [facility] Comment on above: Performed By: #### L 100.0100 #### [facility] [address] [place], [address] Platelets (Bld) [#/Vol] 405 10*3/uL Normal 150-450 [facility] Comment on above: Performed By: #### L 100.0100 #### [facility] [address] [place], [address] RBC (Bld) [#/Vol] 3.80 10*6/uL Low 4.2-5.4 [facility] Comment on above: Performed By: #### L 100.0100 #### [facility] [address] [place], [address] RDW SD 43.0 fl Normal 35.1-43.9 [facility] Comment on above: Performed By: #### L 100.0100 #### [facility] [address] [place], [address] WBC (Bld) [#/Vol] 6.9 10*3/uL Normal 4.4-11.0 [facility] Comment on above: Performed By: #### L 100.0100 #### [facility] [address] [place], [address] Eosinophil percentageOrdered By: Melany Blanc on 11-10-2024 Eosinophils/100 WBC (Bld) 2.0 % 0-5 [facility] Erythrocyte distribution wid th ratioOrdered By: Melany Blanc on 11-10-2024 Erythrocyte distribution width (RBC) [Ratio] 13.9 % 11.6-14.6 [facility] Erythrocyte distribution wid th standard deviationOrdered By: Melany Blanc on 11-10-2024 Erythrocyte distribution width (RBC) [Entitic vol] 43.0 fL 35.1-43.9 [facility] Hematocrit Auto (Bld) [Volum e fraction]Ordered By: Melany Blanc on 11-10-2024 Hematocrit (Bld) [Volume fraction] 32.0 % Low 37-47 [facility] Hemoglobin measurementOrdere d By: Melany Blanc on 11-10-2024 Hemoglobin (Bld) [Mass/Vol] 10.8 g/dL Low 12.0-15.0 [facility] Immature granulocytes/100 WB C Auto (Bld)Ordered By: Melany Blanc on 11-10-2024 Immature granulocytes/100 WBC (Bld) 0.600 % 0.0-0.9 [facility] Comment on above: IG% - Immature Granu locytes (promyelocytes, myelocytes and metamyelocytes) > 1% indicates that a LEFT SHIFT is Present. Lymphocytes Auto (Unsp spec) [#/Vol]Ordered By: Melany Blanc on 11-10-2024 Lymphocytes (Bld) [#/Vol] 2.20 10*3/uL 0.83-4.51 [facility] Lymphocytes/100 WBC Auto (Un sp spec)Ordered By: Melany Blanc on 11-10-2024 Lymphocytes/100 WBC (Bld) 32.1 % 19-41 [facility] MCV (mean corpuscular volume ) determinationOrdered By: Melany Blanc on 11-10-2024 MCV (RBC) [Entitic vol] 84.2 fL 81-99 [facility] Mean corpuscular hemoglobin (MCH) determinationOrdered By: Melany Blanc on 11-10-2024 MCH (RBC) [Entitic mass] 28.4 pg 27.0-32.0 [facility] Mean corpuscular hemoglobin concentration (MCHC) determinationOrdered By: Melany Blanc on 11-10-2024 MCHC (RBC) [Mass/Vol] 33.8 g/dL 32-36 [facility] Mean platelet volume determi nationOrdered By: Melany Blanc on 11-10-2024 Platelet mean volume (Bld) [Entitic vol] 8.3 fL 6.2-12.0 [facility] Monocyte percentageOrdered B y: Melany Blanc on 11-10-2024 Monocytes/100 WBC (Bld) 10.7 % High 0-10 [facility] Neutrophil percentageOrdered By: Melany Blanc on 11-10-2024 Neutrophils/100 WBC (Bld) 54.0 % 47-70 [facility] Nucleated red blood cell per centageOrdered By: Melany Blanc on 11-10-2024 Nucleated RBC/100 WBC (Bld) [Ratio] 0 % 0-5 [facility] Platelet countOrdered By: Chandler Blanc on 11-10-2024 Platelets (Bld) [#/Vol] 405 10*3/uL 150-450 [facility] RBC Auto (Bld) [#/Vol]Ordere d By: Melany Blanc on 11-10-2024 RBC (Bld) [#/Vol] 3.80 10*6/uL Low 4.2-5.4 [facility] White blood cell (WBC) count Ordered By: Melany Blanc on 11-10-2024 WBC (Bld) [#/Vol] 6.9 10*3/uL 4.4-11.0 [facility] Surgical pathology studyOrde red By: Victor Manuel Jacques on 11-05-2024 Laboratory comment Bert (Report) h3aotZRjJBSrg2fbUGQccUKxK zEwMzNcZnRuYmpcdWMxIHtccn DzOFqtu0BeH9PtTlWuTOopodI uGDTjQoiyliczUVYwCCD1znNn UMPuEMcvSHTyWGewCq8xoVGxc AysGbPdENJud9jhvoJXDArdXG NBOBa6w5rlMBOvGmE7vRCyKKi hP4apvuLpqKDqO3Dcr8KyICc6 hQ18DUWbmO8fqRGaAJntpqNoS yZ8XYfnXMIfBjH1QSDkvXGfMH AdH6emSGIrSVwrWEPpXYaeqAF nNGA1qUcfj6G5nBQstEGxgRvn GlWdLgTmLsCHw4YfIHe4cIftL 5XnPHIhHhA6lKEjGWXkLRcsOM UnFQQsmrK0lD66LHvmbaG3aVE gs5Jpf61ok687iA3cjQRiKDO7 YQBaZEJexYMgGUGiHCU4EQOug PNjH0jlScDueNClM5SqArNhuM JrD9XmEtEmmWJbQ9AtIgStnWR yWYCnkPR9WPzjl397ERB4XuVk HE6lB8Tsk3M4aZ0rtHKgQVHxg KGqSwNfHKDxfz0jdYJvZNkws5 KkVFV0buW9vCVydJQiIBWpBL5 6Nvhdh4AaUeyxAZD5BFXrirTd m1Eya8deUyBwqlTrE6dvV3AiK VTrYKRcBVVeFsIlsqIby2Hic4 RkjTKprJi1w7prTAFcWBDytAp lo4hmYJW7BQHlQ3V6uUXku3qy RCfpTZOqoHP9qzH5FAsbOJKkk kQ6lqG7MNztKASsvBF2bvH9BU ogLIEvJrB1jiS4UDrtOHLbLUE 3FeKrZIGig5TtuxlxKhJek2Id dYLoYMfrT10ue165FIDvsgBuZ 1xwbGFpblxwbGFpblxmMFxmcz M9LPEwAXJmRLppQNNqTBPnGiP cbGFuZzEwMzNcaGljaFxmMVxk ItCoJIUrPMzpR2aoLzWuKwDzB NPMwVP8aUFnd2jffaM2wQZgQU 6vRNIgpLDgcpRrt5G8NOZ9zJN siZ7heCCsJKZgqUEpalGjwy88 fTEwfVX5NGFnLXFkuZJtxH1aP RPdNFIMkP0gkFNNbpWmufAjNW PnrNqnxg8OqLQohf1jgSSyM8S ydGlmaWVzIHRoYXQgdGhleSBo VANhVXRspklqj1SfYWOetZOxB 5SpDZ1vICWpnn79 [facility] Work Phone: Pathology report Cancer Narrative Surgical Pathology Case: [id number] Authorizing Provider: Clifford Rhoades DO Collected: 10/29/2024 0808 Ordering Location: [facility] Received: 10/29/[address] [place] [address] Pathologist: Victor Manuel Jacques MD Specimens: A) - DUODENUM SECOND PART BIOPSY B) - STOMACH ANTRUM BIOPSY C) - ESOPHAGUS DISTAL BIOPSY [facility] Work Phone: Pathology report final diagnosis Narrative m2nonPLbJASttKRmASreWnbky fInUBBynBSfB7FtklgsZAubRV 1dKE5rgGsvzCRmpWBqGWIlPyN nn7zkn433fFSkq4zcNYROhjgw qRg9yXfmL14zv9K0SkkiG3jhA IDeIIaaTAXnZMpwzIFyMEg7RL BhcGVydzEyMjQwXHBhcGVyaDE 2SOQvFI4mxwhyDBzmZFndTASd jgR5FCTypRPoI6SrAQVvXE4ik kmoUES3FOtsGXWdYTM2CmVrLF Pop6Pqgyq7OkVkaXe2d4vyQBH dMLStcYroc0gwNBU9TQFkhXJu E2ielN1qQFOyOS5qchuas2ufG RcjVAosOWTmvMP9gyL0PIJkmG UyG1AvtU9bEUZwKYIlkoHboOm ftO9nDtYzLwhcLiXcAE6mAVY6 z0IqyaXpSEYel0MmwWgvwZTsT U2tXSUqZBUqKTqklSGno2TxWE ixvQkqsECtu2XrvgAvMEWtrQr pjHMfDGSdoIu4GHX3wUCgLRLf smLoFN7oZVBrKIatd7I7uHWlE mFxgQIdKAJlc7LuQ8ZagEClCR NwcnVlIGFyZSBzZWVuXHBhclx tGXZcLf6aCJY2j44rA8nbRnle nXW4KpphOJSbWR6VAUZ9brzdP AVbYWfnbHhqYUMjhNBus1Gfi1 n5vESciGaiOPBley4wvEMjdY4 uuVIbxAQ5c1J3RWDfkGvijJ9w tHs6cuT3fK1iCZPbrlIcJQ7vS 9G0iHWgHYTahfNthbRfj6Znbo IgXP9lvFYchZMrjIRqi2QbCUn iuHowd3bcAOqkDAPbKI4RhbKP LiBweWxvcmktbGlrZSBtaWNyb 80hX0PtwFZxtyWisqNoeSSqja CpKceqGBYglfEqq1Z0vS6aKZp rJENbaOCebcNuDSSkN3Imb76k ARYadamhJFCeHj3hRTUjm3Xil OBgs26ofKJwjFExHwopnFL6Pf haETDwQU3DkAEkc1JpZEMrVJL qrjLnbDNbhKCvr0GqfkMfZ9Uk pkXoj2U4DK0clNItbXMhw3QeI VGxNTDsZGD6dwlbZABfsdQaNE E8nVUxXZ42Q10bLJA4rWRxNPD olj5hhLQtwS6xmGShwAB9y4P7 MKGprMazqO4etRx6dwL7dM8mP XDkWZXmqNpyMRZqufccr1Mnw2 6vfGGzUL0yBb9mwS96KEH8jL9 sbMDrLPQqhCeck1aaCF0eXJD2 q8IeAPEbBSKlTAHvEIPeyg9= [facility] Work Phone: Pathology report gross observation Narrative n6npxOVhFYPolOWPLYG6KJNoC Z3yeGhehFh0zAcpTFXwbqO9mZ OwTHrnk6vbVSN3a2nigcNFYez pVBNrCH0iFOkhSTUtZM0xUsKy XGRlZmYxXHBhcGVydzEyMjQwX VHynHGkjUI2EJKnFC1eyqjkFH isKGfmCFYvvuV9ZEBajZObJ4W tBWSmWX8niwnhMGD4EPFVGppa Xq0fmMPqdWKWNtedAvMeQbHbK BVpXLVmEFDbo4lycmIMOTjpKP KRULb0VRs6OPYzAAYglSYpd6X 9SMlgo1kev8JaOETcCTr2hW2F DctlJLW6UPIZDnryBwpwoOqgr 2VjdCBcXHNnIFxcaWQgNTEwMD OfNAbuFnKGWiKhYkKoTwR2PTX 2KPEbJXm7OUuiBcBCZRNzQAe7 DKYuDMq7LFgeMFkrlQBuWABcG HYlNETcEHheycS5l9xwUKInsJ JbCFQ7LWplh5oaGHtyNXY5AAB hAkPxTXZqAY1TOuCtHTXhGfd8 BoRnPoF0MBl4TRYXEkNdZeOaT QR8TPT3WVQgXCs6UTw6OCiQBw ReQxg0RahgNnV8BDB4QvT8IJb kbyntWSc6NIGsLYrrktJbUNqd FuyvSFvhB73sxRDuNABHRhdrt GFpblxlcGljTmVzdERvYzEgDQ zzgIWmsHHlJX9FTNa7rwSbRAL jNWUbLgOtEFurPcMqQCt4XVKo cH8fZd6qkNYapI7dCHygMjPkW FXsa5y6aBM7xQKvqSS9zKRzxR vuON2plNUhHF6hCPhjp7ZthJK lZN70fARancHhkbSiRnG2h8Vb bnVtIDIgQlgiLCBhcmUgbXVsd UinmALiSzCzT81ejcFiLS8xZT Immyjhe74dpOC5vFHopHMsRSk hteRkZJTalpyoqQ6cEE92UIxv QN2sBSgeFE8mQZQrRsMMpNVew 4TcY5vwZG2naSAwb2XfwWz3wK OeYNbbYMGpqM2puR8tj15bESX zs5RbwMZiAtyhCADjPPone6Te MFxlcGljWHNhMzAgDQpMTVANC ynllRmoYuGikSCiHrE7ULWgmM NvYYA6MT5fuWjoBCIySGk2JVd tYFWyD6UjO3AeAVbyMnEkGIrl KJGnUVRuUHmkUUIjO5QNBQSsT bLqMMC0VGJmCJj4HFq2EZ4ATq ZuPQUbKgi7NJfgLuVyRTo5UDu oFL3ZEQUtZVH8ESA1ZjNxAXYo MDUgXFxuaCBcXHQgMiBcXHNzI ZZzKFxbwXOnHK7ntQrpKHDaFN 9FHPHiDSerFUNapPSXKBN5PT6 kPYTNGjaikDZiGKMxx6QwOdGh FLBhL8xqEeXuFIRWYuvoeVUyu BhzVxglmiYkDJB5CWShK1Wdmu YmDNjhGURwbl9gaJcbAOEqNYF lbGVkIHdpdGggdGhlIHBhdGll irWcmbNdSI5jRFUjAYLtt6Acn LQqkCSpnJ0uFVPzFX1cVABhyC BhbiBCWCIsIGFyZSAyIGZyYWd kYB71hcJcWyS6CZ5gAUOnPvDv sMkdd0HgHYMpF5DmD8X8kW9pV NApSUWaJBQ4CDNjSMK9ISYgBo FlfA0lWItqAGYiVHRuqUJmMKx fWFQ6Mc1zmXPsHSMbqgN5a5Ry BMpnBS3aWTUmYZMrJQJ0CS7xu HCrBX7TGMRtttBzcSEzkAMnJB EkGhRdVSTqY1lmQERgKP7KIU0 DQAfvNRGbR55wx1SOf0Vqk3vy eBved2VwxDUbCE0flLCfAZ8Nx 1hxUJOclSSnHEV0CLtvu6lqUB lhZRK5FKEfLiGrBXBsWL1ZWmK mFQVwHeq1WnEsKnJ7FOd8ZECW QpVpFuBuCOV1NRK9EDaqTMe0E Xj0XYuMZtPxGwh0Pbw7UAI2PR Y2HiU5HMcrfxlaTZa1YQYkTVp gyfQrIEfdKwrfEQmpA62xxXNk ZCANClxwbGFpblxlcGljTmVzd ERvYzEgDQpcbHRycGFyXHNiMT X2DSYmzOFFc2LcYfAyJYpfkVX nD2tnSxByQhTaPBVPGhKVBDNh pSXjLGLmecVsx0CcTNwvjfhwd UXhPUabJFW9hIZeNVRfAOCyYH JbUQ81F2UquiChEUZhsgQcgR1 dxCv8IQqeulKjOeEuUGPkVXPk WDWarKjgS2IdLXUdz0NqwOXBM MFhAQOoAMOsxLv7xDThOOIxqh KtvPZttMYsw5XouODcEQAbl2H 9WPEoz7B3YUDbQ9kgHDjtjGrl WiZ2avBeAkxlnMVqGeDyyDDaL vRaM36hVCJoOLLbeCUbiT9hgh JndfKejZDnpDF7CUAviR4mmL8 5juPpmvGoiuKnH9Avv4Y6dGQx AHDmtcLFErfjIYUzEQs4lqVuf mkePQYdTQImeLHBr3BfKOBFVo vNGP1GUHEvgKFGIGB3DB2vUDe vADQwY9QnS3HhbuR8v1vxwTsh a5RfsILcFJ2faCQtSX5GZUHfb lCpAYyqhHtxvP6oEHk5 [facility] Work Phone: Pathology report relevant history Narrative x3rblBXeXSYocAWkUUacLvqmn nDvJKXdaWPjD1BdzargBPecVX 5fRZ1zmJjhyHHxxRHlRNIxDhB eh1hmo737eCJtk1lcHPXLlejy rNc9xTbuF39yz0Z6CbmdI89je QLwPGU3QJWaLJCakYYjVMKlFL T4LGIhxIOzG8yyJHWrWD4busq eIXulXDavAPRjaCW9AGCtdHMd X8SvVPBfBWasAFEjkpq8EzYyD z7ruCJnhTqoGEljHVEbQTKgBL fxKGIzBxYbIMczI08yx5gsYkd 8BOJgWoMhBfIuVU6lD6XoyULl GDOtiOaaC5DreBPvCNJjrGwqS KtpQYEyNJX5tVZfPHTrd3KvLH qhdHibNDskbVdxmAJluYWkp3L yaGFnZSBbSUNELTEwLUNNXVxw YXJ9 [facility] Work Phone: [facility]: [facility] Telephone ([facility]) ----- BRENDA VILLALOBOS ([id number]) 1970 F Date Time Provider Department 10/29/24 [facility] During your visit today, we recorded the following information about you: Dari Ozuna MA 10/29/2024 11:26 AM Signed Pt had labs done at [facility]. Results below. View External Labs - Hematology [ID [id number]] ALF Richardson Danielle, ZITA.RN RECRUITMENT 10/29/2024 11:53 AM Signed Please find out if patient is having any bleeding in her stool or urine. Her hgb has dropped 1 point since her hgb on 10/08. Sj Pedro MA 10/29/2024 3:10 PM Signed Pt denies blood in stool or urine ALF Calle Danielle, ZITA.RN RECRUITMENT 11/01/2024 8:22 AM Signed Please let patient know I would like her to repeat CBC sometime this week. Laughery, Luzmaria, [employer]ER 11/01/2024 8:43 AM Signed Message left for patient to return call and request to speak with a nurse. RENETTA Lyons Krystle, RN 11/01/2024 9:18 AM Signed Patient returns call and message reviewed. 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 Printed and placed in envelope on desk for pick-up. Saad Kessler RN Allergies As of Date: 10/29/2024 Noted Allergy Reaction MEDROL DOSE PACK (METHYLPREDNISOL*02/01/20 17 7 - Swelling Comments: Swelling of throat BACTRIM (SULFAMETHOXAZOLE) 08/12/2013 9 - Itching CARAFATE (SUCRALFATE) 05/31/2024 14 - Other: See Comments Comments: Made her constipated MORPHINE 08/12/2013 9 - Itching TRIMETHOPRIM 03/12/2019 14 - Other: See Comments 16 - Unknown ZOLOFT (SERTRALINE) 04/19/2020 14 - Other: See Comments Comments: Chest felt heavy. Date Reviewed: 10/08/2024 Reviewed by: Sj Pedro MA - Fully Assessed Reason for Visit: Results [95] Cmt: Done at [facility] Primary Visit Diagnosis:Low hemoglobin [D64.9] Order(s):COMPLETE BLOOD COUNT AND DIFFERENTIAL [SQCBCDIF] Order #: [id number] FUTURE Prescriptions as of 11/01/2024 - FLUoxetine (PROZAC) 40 mg capsule Take 1 capsule by mouth two times a day. - fluticasone-salmeterol (ADVAIR DISKUS) 250-50 mcg/dose inhaler Inhale 1 Puff as instructed two times a day. Rinse and gargle mouth after use with water. - fluticasone (FLONASE) 50 mcg/actuation nasal spray Use 2 Sprays in each nostril once daily. Rinse mouth after use. - SENOKOT 8.6 mg tab Take 1 tablet by mouth two times a day. - busPIRone (BUSPAR) 15 mg tablet Take 1.5 tabs twice a day. - levothyroxine (SYNTHROID) 88 mcg tablet Take one tab by mouth daily.Friday -Friday and none on Friday. - esomeprazole (NEXIUM) 40 mg capsule Take 1 capsule by mouth two times a day before meals. - tiotropium (SPIRIVA) 18 mcg inhalation capsule Inhale 1 capsule as instructed once daily. - albuterol (PROVENTIL) 2.5 mg /3 mL (0.083 %) nebulizer solution Use 3 mL via nebulizer every 6 hours as needed for wheezing/shortness of breath. Use over 5-15minutes. - albuterol HFA (PROAIR HFA) 90 mcg/actuation inhaler USE 2 INHALATIONS EVERY 6 HOURS INSTRUCTED NEEDED - ipratropium-albuterol (DUONEB) 0.5 mg-3 mg(2.5 mg base)/3 mL nebu Inhale 3 mL as instructed two times a day. - Cholecalciferol, Vitamin D3, 50 mcg (2,000 unit) cap Take 1 capsule by mouth once daily. - cyanocobalamin (VITAMIN B-12) 1,000 mcg tab Take 1 tablet by mouth once daily. - ergocalciferol, vitamin D2, (VITAMIN D2 ORAL) Take by mouth. 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] 10/18/2016 Encounter for screening for cardiovascular diso*10/18/2016 07/27/2024 Encounter for screening for diabetes mellitus [*10/18/2016 Elevated fasting blood sugar [R73.01] 04/18/2017 Encounter for screening mammogram for breast ca*04/22/2018 Dyslipidemia [E78.5] 04/22/2018 Spastic bladder [N32.89] 10/23/2018 Situational depression [F43.21] 04/19/2020 Varicose veins of bilateral lower extremities w*04/19/2020 Medication management [Z79.899] 04/19/2020 Vitamin B12 deficiency [E53.8] 10/25/2020 MURIEL (generalized anxiety disorder) [F41.1] 05/18/2021 Screening for colon cancer [Z12.11] 05/18/2021 OA (osteoarthrosis) [M19.90] 05/18/2021 Bilateral groin pain [R10.31, R10.32] 06/04/2023 Bilateral hip pain [M25.551, M25.552] 06/04/2023 Encounter Status:Closed by SAAD KESSLER on 11/01/24 [facility] EGDon 10-29-2024 Esophagogastroduodenosco py Table formatting from the original result was not included. Impression Mild erythematous mucosa in the prepyloric region, consistent with gastritis; performed cold forceps biopsy to rule out H. pylori Performed forceps biopsies in the duodenal bulb and 2nd part of the duodenum to rule out celiac disease Findings Regular Z-line 36 cm from the incisors; performed cold forceps biopsy Mild, localized erythematous mucosa in the prepyloric region, consistent with gastritis; performed cold forceps biopsy to rule out H. pylori Performed forceps biopsies in the duodenal bulb and 2nd part of the duodenum to rule out celiac disease Recommendation Follow up with PCP Indication Gastroesophageal reflux disease with esophagitis without hemorrhage Staff Staff Role No Staff Documented Medications ujhkmmwz-fdrtszngcc-uxpgg lior (Cetacaine) spray 2 spray fentaNYL PF (Sublimaze) injection 75 mcg midazolam (Versed) injection 2.5 mg midazolam PF (Versed) injection 2.5 mg (Totals for administrations occurring from 0800 to 0818 on 10/29/24) Preprocedure A history and physical has been performed, and patient medication allergies have been reviewed. The patient's tolerance of previous anesthesia has been reviewed. The risks and benefits of the procedure and the sedation options and risks were discussed with the patient and patient's partner. All questions were answered and informed consent obtained. Details of the Procedure The patient underwent moderate sedation, which was administered by the procedural nurse. The patient's blood pressure, ECG, ETCO2, heart rate, level of consciousness, oxygen and respirations were monitored throughout the procedure. The scope was introduced through the mouth and advanced to the second part of the duodenum. Retroflexion was performed in the cardia. Prior to the procedure, the patient's H. Pylori status was unknown. The patient experienced no blood loss. The procedure was not difficult. The patient tolerated the procedure well. There were no apparent adverse events. Events Procedure Events Event Event Time ENDO SCOPE OUT TIME 10/29/2024 8:16 AM Specimens ID Type Source Tests Collected by Time 1 : Tissue DUODENUM SECOND PART BIOPSY SURGICAL PATHOLOGY EXAM Alex Benaivdez RN 10/29/202415 2 : Tissue STOMACH ANTRUM BIOPSY SURGICAL PATHOLOGY EXAM Alex Benavidez RN 10/29/2024 0808 3 : Tissue ESOPHAGUS DISTAL BIOPSY SURGICAL PATHOLOGY EXAM Alex Benavidez RN 10/29/202408 Procedure Location [address] [address] Referring Provider Clifford Rhoades DO Procedure Provider Clifford Rhoades DO Table formatting from the original result was not included. Impression Mild erythematous mucosa in the prepyloric region, consistent with gastritis; performed cold forceps biopsy to rule out H. pylori Performed forceps biopsies in the duodenal bulb and 2nd part of the duodenum to rule out celiac disease Findings Regular Z-line 36 cm from the incisors; performed cold forceps biopsy Mild, localized erythematous mucosa in the prepyloric region, consistent with gastritis; performed cold forceps biopsy to rule out H. pylori Performed forceps biopsies in the duodenal bulb and 2nd part of the duodenum to rule out celiac disease Recommendation Follow up with PCP Indication Gastroesophageal reflux disease with esophagitis without hemorrhage Staff Staff Role No Staff Documented Medications eapvdblu-jrigisaijm-cveqx lior (Cetacaine) spray 2 spray fentaNYL PF (Sublimaze) injection 75 mcg midazolam (Versed) injection 2.5 mg midazolam PF (Versed) injection 2.5 mg (Totals for administrations occurring from 0800 to 0818 on 10/29/24) Preprocedure A history and physical has been performed, and patient medication allergies have been reviewed. The patient's tolerance of previous anesthesia has been reviewed. The risks and benefits of the procedure and the sedation options and risks were discussed with the patient and patient's partner. All questions were answered and informed consent obtained. Details of the Procedure The patient underwent moderate sedation, which was administered by the procedural nurse. The patient's blood pressure, ECG, ETCO2, heart rate, level of consciousness, oxygen and respirations were monitored throughout the procedure. The scope was introduced through the mouth and advanced to the second part of the duodenum. Retroflexion was performed in the cardia. Prior to the procedure, the patient's H. Pylori status was unknown. The patient experienced no blood loss. The procedure was not difficult. The patient tolerated the procedure well. There were no apparent adverse events. Events Procedure Events Event Event Time ENDO SCOPE OUT TIME 10/29/2024 8:16 AM Specimens ID Type Source Tests Collected by Time 1 : Tissue DUODENUM SECOND PART BIOPSY SURGICAL PATHOLOGY EXAM Alex Benavidez RN 10/29/2024 0815 2 : Tissue (more content not included)... [facility] Comment on above: Order Comment: 10/29 EGD Study observation Narrmagy rivera 10-29-2024 Addendum by Clifford Rhoades DO on 10/29/2024 9:08 AM EST Table formatting from the original result was not included. Impression Mild erythematous mucosa in the prepyloric region, consistent with gastritis; performed cold forceps biopsy to rule out H. pylori Performed forceps biopsies in the duodenal bulb and 2nd part of the duodenum to rule out celiac disease Findings Regular Z-line 36 cm from the incisors; performed cold forceps biopsy Mild, localized erythematous mucosa in the prepyloric region, consistent with gastritis; performed cold forceps biopsy to rule out H. pylori Performed forceps biopsies in the duodenal bulb and 2nd part of the duodenum to rule out celiac disease Recommendation Follow up with PCP Indication Gastroesophageal reflux disease with esophagitis without hemorrhage Staff Staff Role No Staff Documented Medications qdklaafl-ekfysjlkbu-dbbsq lior (Cetacaine) spray 2 spray fentaNYL PF (Sublimaze) injection 75 mcg midazolam (Versed) injection 2.5 mg midazolam PF (Versed) injection 2.5 mg (Totals for administrations occurring from 0800 to 0818 on 10/29/24) Preprocedure A history and physical has been performed, and patient medication allergies have been reviewed. The patient's tolerance of previous anesthesia has been reviewed. The risks and benefits of the procedure and the sedation options and risks were discussed with the patient and patient's partner. All questions were answered and informed consent obtained. Details of the Procedure The patient underwent moderate sedation, which was administered by the procedural nurse. The patient's blood pressure, ECG, ETCO2, heart rate, level of consciousness, oxygen and respirations were monitored throughout the procedure. The scope was introduced through the mouth and advanced to the second part of the duodenum. Retroflexion was performed in the cardia. Prior to the procedure, the patient's H. Pylori status was unknown. The patient experienced no blood loss. The procedure was not difficult. The patient tolerated the procedure well. There were no apparent adverse events. Events Procedure Events Event Event Time ENDO SCOPE OUT TIME 10/29/2024 8:16 AM Specimens ID Type Source Tests Collected by Time 1 : Tissue DUODENUM SECOND PART BIOPSY SURGICAL PATHOLOGY EXAM Alex Benavidez RN 10/29/2024814 2 : Tissue STOMACH ANTRUM BIOPSY SURGICAL PATHOLOGY EXAM Alex Benavidez RN 10/29/2024807 3 : Tissue ESOPHAGUS DISTAL BIOPSY SURGICAL PATHOLOGY EXAM Alex Benavidez RN 10/29/2024807 Procedure Location [address] [address] Referring Provider Clifford Rhoades DO Procedure Provider Clifford Rhoades DO [facility] Work Phone: [facility] Work Phone: Radiology Study observation (narrative) [facility] Work Phone: Absolute neutrophil countOrd ered By: Melany Blanc on 10-28-2024 Neutrophils (Bld) [#/Vol] 4.0 10*3/uL 2.0-7.7 [facility] Basophil percentageOrdered B y: Melany Blanc on 10-28-2024 Basophils/100 WBC (Bld) 0.7 % 0-1 [facility] CBC W/Diff, Automatedon 10-13 Absolute Lymph 2.50 X10 3/uL Normal 0.83-4.51 [facility] Comment on above: Performed By: #### L 100.0100 #### [facility] [address] [place], [address] Absolute Neut 4.0 X10 3/uL Normal 2.0-7.7 [facility] Comment on above: Performed By: #### L 100.0100 #### [facility] [address] [place], [address] Basophils/100 WBC (Bld) 0.7 % Normal 0-1 [facility] Comment on above: Performed By: #### L 100.0100 #### [facility] [address] [place], [address] Eosinophils/100 WBC (Bld) 2.5 % Normal 0-5 [facility] Comment on above: Performed By: #### L 100.0100 #### [facility] [address] [place], [address] Erythrocyte distribution width (RBC) [Ratio] 13.5 % Normal 11.6-14.6 [facility] Comment on above: Performed By: #### L 100.0100 #### [facility] [address] [place], [address] Hematocrit (Bld) [Volume fraction] 32.5 % Low 37-47 [facility] Comment on above: Performed By: #### L 100.0100 #### [facility] [address] [place], [address] Hemoglobin (Bld) [Mass/Vol] 11.0 g/dL Low 12.0-15.0 [facility] Comment on above: Performed By: #### L 100.0100 #### [facility] [address] [place], [address] IG% 0.500 Normal 0.0-0.9 [facility] Comment on above: Result Comment: IG% - Immature Granulocytes (promyelocytes, myelocytes and metamyelocytes) > 1% indicates that a LEFT SHIFT is Present. Performed By: #### L 100.0100 #### [facility] [address] [place], [address] Lymphocytes/100 WBC (Bld) 32.9 % Normal 19-41 [facility] Comment on above: Performed By: #### L 100.0100 #### [facility] [address] [place], [address] MCH (RBC) [Entitic mass] 28.6 pg Normal 27.0-32.0 [facility] Comment on above: Performed By: #### L 100.0100 #### [facility] [address] [place], [address] MCHC (RBC) [Mass/Vol] 33.8 g/dL Normal 32-36 [facility] Comment on above: Performed By: #### L 100.0100 #### [facility] [address] [place], [address] MCV (RBC) [Entitic vol] 84.4 fL Normal 81-99 [facility] Comment on above: Performed By: #### L 100.0100 #### [facility] [address] [place], [address] Monocytes/100 WBC (Bld) 10.8 % High 0-10 [facility] Comment on above: Performed By: #### L 100.0100 #### [facility] [address] [place], [address] Neutrophils/100 WBC (Bld) 52.6 % Normal 47-70 [facility] Comment on above: Performed By: #### L 100.0100 #### [facility] [address] [place], [address] Nucleated RBC (Bld) [#/Vol] 0 10*3/uL Normal 0-5 [facility] Comment on above: Performed By: #### L 100.0100 #### [facility] [address] [place], [address] Platelet mean volume (Bld) [Entitic vol] 8.7 fL Normal 6.2-12.0 [facility] Comment on above: Performed By: #### L 100.0100 #### [facility] [address] [place], [address] Platelets (Bld) [#/Vol] 431 10*3/uL Normal 150-450 [facility] Comment on above: Performed By: #### L 100.0100 #### [facility] [address] [place], [address] RBC (Bld) [#/Vol] 3.85 10*6/uL Low 4.2-5.4 [facility] Comment on above: Performed By: #### L 100.0100 #### [facility] [address] [place], [address] RDW SD 41.8 fl Normal 35.1-43.9 [facility] Comment on above: Performed By: #### L 100.0100 #### [facility] [address] [place], [address] WBC (Bld) [#/Vol] 7.6 10*3/uL Normal 4.4-11.0 [facility] Comment on above: Performed By: #### L 100.0100 #### [facility] [address] [place], [address] Eosinophil percentageOrdered By: Melany Blanc on 10-28-2024 Eosinophils/100 WBC (Bld) 2.5 % 0-5 [facility] Erythrocyte distribution wid th ratioOrdered By: Melany Blanc on 10-28-2024 Erythrocyte distribution width (RBC) [Ratio] 13.5 % 11.6-14.6 [facility] Erythrocyte distribution wid th standard deviationOrdered By: Melany Blanc on 10-28-2024 Erythrocyte distribution width (RBC) [Entitic vol] 41.8 fL 35.1-43.9 [facility] Hematocrit Auto (Bld) [Volum e fraction]Ordered By: Melany Blanc on 10-28-2024 Hematocrit (Bld) [Volume fraction] 32.5 % Low 37-47 [facility] Hemoglobin measurementOrdere d By: Melany Blanc on 10-28-2024 Hemoglobin (Bld) [Mass/Vol] 11.0 g/dL Low 12.0-15.0 [facility] Immature granulocytes/100 WB C Auto (Bld)Ordered By: Melany Blanc on 10-28-2024 Immature granulocytes/100 WBC (Bld) 0.500 % 0.0-0.9 [facility] Comment on above: IG% - Immature Granu locytes (promyelocytes, myelocytes and metamyelocytes) > 1% indicates that a LEFT SHIFT is Present. Lymphocytes Auto (Unsp spec) [#/Vol]Ordered By: Melany Blnac on 10-28-2024 Lymphocytes (Bld) [#/Vol] 2.50 10*3/uL 0.83-4.51 [facility] Lymphocytes/100 WBC Auto (Un sp spec)Ordered By: Melany Blanc on 10-28-2024 Lymphocytes/100 WBC (Bld) 32.9 % 19-41 [facility] MCV (mean corpuscular volume ) determinationOrdered By: Melany Blanc on 10-28-2024 MCV (RBC) [Entitic vol] 84.4 fL 81-99 [facility] Mean corpuscular hemoglobin (MCH) determinationOrdered By: Melany Blanc on 10-28-2024 MCH (RBC) [Entitic mass] 28.6 pg 27.0-32.0 [facility] Mean corpuscular hemoglobin concentration (MCHC) determinationOrdered By: Melany Blanc on 10-28-2024 MCHC (RBC) [Mass/Vol] 33.8 g/dL 32-36 [facility] Mean platelet volume determi nationOrdered By: Melany Blanc on 10-28-2024 Platelet mean volume (Bld) [Entitic vol] 8.7 fL 6.2-12.0 [facility] Monocyte percentageOrdered B y: Melany Blanc on 10-28-2024 Monocytes/100 WBC (Bld) 10.8 % High 0-10 [facility] Neutrophil percentageOrdered By: Melany Blanc on 10-28-2024 Neutrophils/100 WBC (Bld) 52.6 % 47-70 [facility] Nucleated red blood cell per centageOrdered By: Melany Blanc on 10-28-2024 Nucleated RBC/100 WBC (Bld) [Ratio] 0 % 0-5 [facility] Platelet countOrdered By: Chandler Blanc on 10-28-2024 Platelets (Bld) [#/Vol] 431 10*3/uL 150-450 [facility] RBC Auto (Bld) [#/Vol]Ordere d By: Melany Blanc on 10-28-2024 RBC (Bld) [#/Vol] 3.85 10*6/uL Low 4.2-5.4 [facility] White blood cell (WBC) count Ordered By: Melany Blanc on 10-28-2024 WBC (Bld) [#/Vol] 7.6 10*3/uL 4.4-11.0 [facility] ----- BRENDA VILLALOBOS ([id number]) 1970 F Date Time Provider Department 10/11/24 [facility] During your visit today, we recorded the following information about you: Francisco Carver LPN 10/11/2024 7:19 AM Signed Received results of labs ordered by PCP. Francisco Carver LPN Scan on 10/08/2024 12:11 PM by ProviderNasir PA-C: Chemistry Scan on 10/08/2024 11:34 AM by ProviderNasir PAAugustC: Hematology Melany Blanc APRN.RN RECRUITMENT 10/11/2024 12:46 PM Signed Please let patient know her cholesterol is worse than previous. Her platelets are also elevated. I would like her to repeat cbc in 2 weeks. Sj Pedro MA 10/11/2024 1:44 PM Signed Pt notified and verbalized understanding Sj Pedro MA Allergies As of Date: 10/11/2024 Noted Allergy Reaction MEDROL DOSE PACK (METHYLPREDNISOL*02/01/20 17 7 - Swelling Comments: Swelling of throat BACTRIM (SULFAMETHOXAZOLE) 08/12/2013 9 - Itching CARAFATE (SUCRALFATE) 05/31/2024 14 - Other: See Comments Comments: Made her constipated MORPHINE 08/12/2013 9 - Itching TRIMETHOPRIM 03/12/2019 14 - Other: See Comments 16 - Unknown ZOLOFT (SERTRALINE) 04/19/2020 14 - Other: See Comments Comments: Chest felt heavy. Date Reviewed: 10/08/2024 Reviewed by: Sj Pedro MA - Fully Assessed Reason for Visit: Results [95] Primary Visit Diagnosis:Elevated platelet count [R79.89] Order(s):COMPLETE BLOOD COUNT AND DIFFERENTIAL [SQCBCDIF] Order #: [id number] FUTURE Prescriptions as of 10/11/2024 - FLUoxetine (PROZAC) 40 mg capsule Take 1 capsule by mouth two times a day. - fluticasone-salmeterol (ADVAIR DISKUS) 250-50 mcg/dose inhaler Inhale 1 Puff as instructed two times a day. Rinse and gargle mouth after use with water. - fluticasone (FLONASE) 50 mcg/actuation nasal spray Use 2 Sprays in each nostril once daily. Rinse mouth after use. - SENOKOT 8.6 mg tab Take 1 tablet by mouth two times a day. - busPIRone (BUSPAR) 15 mg tablet Take 1.5 tabs twice a day. - levothyroxine (SYNTHROID) 88 mcg tablet Take one tab by mouth daily.Friday -Friday and none on Friday. - esomeprazole (NEXIUM) 40 mg capsule Take 1 capsule by mouth two times a day before meals. - tiotropium (SPIRIVA) 18 mcg inhalation capsule Inhale 1 capsule as instructed once daily. - albuterol (PROVENTIL) 2.5 mg /3 mL (0.083 %) nebulizer solution Use 3 mL via nebulizer every 6 hours as needed for wheezing/shortness of breath. Use over 5-15minutes. - albuterol HFA (PROAIR HFA) 90 mcg/actuation inhaler USE 2 INHALATIONS EVERY 6 HOURS INSTRUCTED NEEDED - ipratropium-albuterol (DUONEB) 0.5 mg-3 mg(2.5 mg base)/3 mL nebu Inhale 3 mL as instructed two times a day. - Cholecalciferol, Vitamin D3, 50 mcg (2,000 unit) cap Take 1 capsule by mouth once daily. - cyanocobalamin (VITAMIN B-12) 1,000 mcg tab Take 1 tablet by mouth once daily. - ergocalciferol, vitamin D2, (VITAMIN D2 ORAL) Take by mouth. 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] 10/18/2016 Encounter for screening for cardiovascular diso*10/18/2016 07/27/2024 Encounter for screening for diabetes mellitus [*10/18/2016 Elevated fasting blood sugar [R73.01] 04/18/2017 Encounter for screening mammogram for breast ca*04/22/2018 Dyslipidemia [E78.5] 04/22/2018 Spastic bladder [N32.89] 10/23/2018 Situational depression [F43.21] 04/19/2020 Varicose veins of bilateral lower extremities w*04/19/2020 Medication management [Z79.899] 04/19/2020 Vitamin B12 deficiency [E53.8] 10/25/2020 MURIEL (generalized anxiety disorder) [F41.1] 05/18/2021 Screening for colon cancer [Z12.11] 05/18/2021 OA (osteoarthrosis) [M19.90] 05/18/2021 Bilateral groin pain [R10.31, R10.32] 06/04/2023 Bilateral hip pain [M25.551, M25.552] 06/04/2023 Encounter Status:Closed by WORKSJ GARCIA CMA on 10/11/24 Normal [facility] [id number] DOrdered By: Nini Logan on 10-08-2024 Vitamin D 25-Hydroxy 24.4 ng/mL [facility] Comment on above: Vitamin D 25(OH) Sta tus Range Deficiency <20 ng/mL (50nmol/L) Insufficiency 20 - 30 ng/mL (50 - 75 nmol/L) Sufficiency 30 - 100 ng/mL (75 - 250 nmol/L) Toxicity >100 ng/mL (>250 nmol/L) Absolute neutrophil countOrd ered By: Fortino Logan on 10-08-2024 Neutrophils (Bld) [#/Vol] 4.1 10*3/uL 2.0-7.7 [facility] Basophil percentageOrdered B y: Fortino Logan on 10-08-2024 Basophils/100 WBC (Bld) 0.9 % 0-1 [facility] CBC W/Diff, Automatedon 09-13 Absolute Lymph 1.62 X10 3/uL Normal 0.83-4.51 [facility] Comment on above: Performed By: #### L 506.1000, L503.0105, L501.9985, L500.4100, L100.0100 #### [facility] [address] [place], [address] Absolute Neut 4.1 X10 3/uL Normal 2.0-7.7 [facility] Comment on above: Performed By: #### L 506.1000, L503.0105, L501.9985, L500.4100, L100.0100 #### [facility] [address] [place], [address] Basophils/100 WBC (Bld) 0.9 % Normal 0-1 [facility] Comment on above: Performed By: #### L 506.1000, L503.0105, L501.9985, L500.4100, L100.0100 #### [facility] [address] [place], [address] Eosinophils/100 WBC (Bld) 2.1 % Normal 0-5 [facility] Comment on above: Performed By: #### L 506.1000, L503.0105, L501.9985, L500.4100, L100.0100 #### [facility] [address] [place], [address] Erythrocyte distribution width (RBC) [Ratio] 13.3 % Normal 11.6-14.6 [facility] Comment on above: Performed By: #### L 506.1000, L503.0105, L501.9985, L500.4100, L100.0100 #### [facility] [address] [place], [address] Hematocrit (Bld) [Volume fraction] 36.6 % Low 37-47 [facility] Comment on above: Performed By: #### L 506.1000, L503.0105, L501.9985, L500.4100, L100.0100 #### [facility] [address] [place], [address] Hemoglobin (Bld) [Mass/Vol] 12.1 g/dL Normal 12.0-15.0 [facility] Comment on above: Performed By: #### L 506.1000, L503.0105, L501.9985, L500.4100, L100.0100 #### [facility] [address] [place], [address] IG% 1.000 High 0.0-0.9 [facility] Comment on above: Result Comment: IG% - Immature Granulocytes (promyelocytes, myelocytes and metamyelocytes) > 1% indicates that a LEFT SHIFT is Present. Performed By: #### L 506.1000, L503.0105, L501.9985, L500.4100, L100.0100 #### [facility] [address] [place], [address] Lymphocytes/100 WBC (Bld) 24.0 % Normal 19-41 [facility] Comment on above: Performed By: #### L 506.1000, L503.0105, L501.9985, L500.4100, L100.0100 #### [facility] [address] [place], [address] MCH (RBC) [Entitic mass] 28.0 pg Normal 27.0-32.0 [facility] Comment on above: Performed By: #### L 506.1000, L503.0105, L501.9985, L500.4100, L100.0100 #### [facility] [address] [place], [address] MCHC (RBC) [Mass/Vol] 33.1 g/dL Normal 32-36 [facility] Comment on above: Performed By: #### L 506.1000, L503.0105, L501.9985, L500.4100, L100.0100 #### [facility] [address] [place], [address] MCV (RBC) [Entitic vol] 84.7 fL Normal 81-99 [facility] Comment on above: Performed By: #### L 506.1000, L503.0105, L501.9985, L500.4100, L100.0100 #### [facility] [address] [place], [address] Monocytes/100 WBC (Bld) 11.4 % High 0-10 [facility] Comment on above: Performed By: #### L 506.1000, L503.0105, L501.9985, L500.4100, L100.0100 #### [facility] [address] [place], [address] Neutrophils/100 WBC (Bld) 60.6 % Normal 47-70 [facility] Comment on above: Performed By: #### L 506.1000, L503.0105, L501.9985, L500.4100, L100.0100 #### [facility] [address] [place], [address] Nucleated RBC (Bld) [#/Vol] 0 10*3/uL Normal 0-5 [facility] Comment on above: Performed By: #### L 506.1000, L503.0105, L501.9985, L500.4100, L100.0100 #### [facility] [address] [place], [address] Platelet mean volume (Bld) [Entitic vol] 8.8 fL Normal 6.2-12.0 [facility] Comment on above: Performed By: #### L 506.1000, L503.0105, L501.9985, L500.4100, L100.0100 #### [facility] [address] [place], [address] Platelets (Bld) [#/Vol] 464 10*3/uL High 150-450 [facility] Comment on above: Performed By: #### L 506.1000, L503.0105, L501.9985, L500.4100, L100.0100 #### [facility] [address] [place], [address] RBC (Bld) [#/Vol] 4.32 10*6/uL Normal 4.2-5.4 [facility] Comment on above: Performed By: #### L 506.1000, L503.0105, L501.9985, L500.4100, L100.0100 #### [facility] [address] [place], [address] RDW SD 41.2 fl Normal 35.1-43.9 [facility] Comment on above: Performed By: #### L 506.1000, L503.0105, L501.9985, L500.4100, L100.0100 #### [facility] [address] [place], [place], [address] WBC (Bld) [#/Vol] 6.8 10*3/uL Normal 4.4-11.0 [facility] Comment on above: Performed By: #### L 506.1000, L503.0105, L501.9985, L500.4100, L100.0100 #### [facility] [address] [place], [address] CNOVon 10-08-2024 CNOV Office Visit (GERMAINWS ) ----- BRENDA VILLALOBOS ([id number]) 1970 F Date Time Provider Department 10/08/24 9:20 AM MELANY BLANC During your visit today, we recorded the following information about you: Pulse Blood pressure Weight 89/minute 118/79 59 kg Melany Blanc APRN.[facility] 10/08/2024 9:33 AM Signed Chief Complaint Patient presents with: Follow Up HPI Brenda Dianna Griselda is a 54 year old female who presents here today for Above Complaints.. Patient presents for increasing anxiety. Patient reports here son has DM type 1 and it is uncontrolled causing him to have a lot of health issues. Son lives with her and so this is a very stressful situation. Patient reports her anxiety was controlled but over the last few months it has been increasing and is now uncontrolled. Buspar is ineffective and she waskes up daily with anxiety and panic. Past medical history, appointments, medications, allergies reviewed. 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 Has been on omeprazole, pantoprazole and prevacid with no relief of symptoms. Nexium has been helpful and dexalant Insomnia 04/12/2014 OA (osteoarthrosis) 05/18/2021 Post-menopausal Situational depression 04/19/2020 Smoker 08/12/2013 Started at the age of 11 up to 1.5 PPD Spastic bladder 10/23/2018 Varicose veins of bilateral lower extremities with other complications 04/19/2020 bleeding at times Vitamin B12 deficiency 10/25/2020 Vitamin D deficiency Well adult exam 04/17/2016 last done: 04/19/20 Previous Surgical History PAST SURGICAL HISTORY Procedure Laterality Date 48 HOUR PH STUDY 09/13/2021 Demeester score-28.6; Dr. Gresham EGD TRANSORAL BIOPSY SINGLE/MULTIPLE 05/27/2016 EGD WITH BIOPSY(S) 09/13/2021 Dr. Gresham ESOPHAGOGASTRODUODENOSCOP Y TRANSORAL DIAGNOSTIC 03/16/2020 OFFICE LEEP 2002 TOTAL ABDOMINAL HYSTERECT W/WO RMVL TUBE OVARY Bilateral 2002 bso Family History FAMILY HISTORY Problem Relation Age of Onset COPD Mother Heart Mother Thyroid Mother Hypertension Mother Kidney Disease Mother Kidney failure Asthma Mother Breast Cancer Mother Seizures Brother Coronary Artery Disease Maternal Grandmother Thyroid Daughter Diabetes Son Type 1 Hypertension Son Asthma Son Alzheimer's Disease Paternal Uncle Prostate Cancer Paternal Uncle Ovarian cancer No Family History Colon Cancer No Family History Hyperlipidemia No Family History Stroke No Family History Patient Allergies ALLERGIES Allergen Reactions Medrol Dose Pack [M* Swelling Swelling of throat Bactrim [Sulfametho* Itching Carafate [Sucralfat* Other: See Comments Made her constipated Morphine Itching Trimethoprim Other: See Comments, Unknown Zoloft [Sertraline] Other: See Comments Chest felt heavy. Current Medications Current Outpatient Medications on File Prior to Visit Medication Sig fluticasone-salmeterol (ADVAIR DISKUS) 250-50 mcg/dose inhaler Inhale 1 Puff as instructed two times a day. Rinse and gargle mouth after use with water. fluticasone (FLONASE) 50 mcg/actuation nasal spray Use 2 Sprays in each nostril once daily. Rinse mouth after use. SENOKOT 8.6 mg tab Take 1 tablet by mouth two times a day. busPIRone (BUSPAR) 15 mg tablet Take 1.5 tabs twice a day. FLUoxetine (PROZAC) 40 mg capsule Take 1 capsule by mouth once daily. levothyroxine (SYNTHROID) 88 mcg tablet Take one tab by mouth daily.Friday -Friday and none on Friday. esomeprazole (NEXIUM) 40 mg capsule Take 1 capsule by mouth two times a day before meals. tiotropium (SPIRIVA) 18 mcg inhalation capsule Inhale 1 capsule as instructed once daily. albuterol (PROVENTIL) 2.5 mg /3 mL (0.083 %) nebulizer solution Use 3 mL via nebulizer every 6 hours as needed for wheezing/shortness of breath. Use over 5-15minutes. albuterol HFA (PROAIR HFA) 90 mcg/actuation inhaler USE 2 INHALATIONS EVERY 6 HOURS INSTRUCTED NEEDED ipratropium-albuterol (DUONEB) 0.5 mg-3 mg(2.5 mg base)/3 mL nebu Inhale 3 mL as instructed two times a day. Cholecalciferol, Vitamin D3, 50 mcg (2,000 unit) cap Take 1 capsule by mouth once daily. ergocalciferol, vitamin D2, (VITAMIN D2 ORAL) Take by mouth. cyanocobalamin (VITAMIN B-12) 1,000 mcg tab Take 1 tablet by mouth once daily. No curr (more content not included)... Normal [facility] Eosinophil percentageOrdered By: Fortino Logan on 10-08-2024 Eosinophils/100 WBC (Bld) 2.1 % 0-5 [facility] Erythrocyte distribution wid th ratioOrdered By: Fortino Logan on 10-08-2024 Erythrocyte distribution width (RBC) [Ratio] 13.3 % 11.6-14.6 [facility] Erythrocyte distribution wid th standard deviationOrdered By: Fortino Logan on 10-08-2024 Erythrocyte distribution width (RBC) [Entitic vol] 41.2 fL 35.1-43.9 [facility] Hematocrit Auto (Bld) [Volum e fraction]Ordered By: Fortino Logan on 10-08-2024 Hematocrit (Bld) [Volume fraction] 36.6 % Low 37-47 [facility] Hemoglobin A1con 10-08-2024 HbA1c (Bld) [Mass fraction] 5.3 % Normal 3.8-5.6 [facility] Comment on above: Result Comment: Norm al < 5.7 % Prediabetic 5.7 - 6.4 % Diabetic >or= 6.5 % Please note range changes. Performed By: #### L 506.1000, L503.0105, L501.9985, L500.4100, L100.0100 #### [facility] [address] [place], [address] Hemoglobin A1c percentageOrd ered By: Fortino Logan on 10-08-2024 HbA1c (Bld) [Mass fraction] 5.3 % 3.8-5.6 [facility] Comment on above: Normal < 5.7 % Predi abetic 5.7 - 6.4 % Diabetic >or= 6.5 % Please note range changes. Hemoglobin measurementOrdere d By: Fortino Logan on 10-08-2024 Hemoglobin (Bld) [Mass/Vol] 12.1 g/dL 12.0-15.0 [facility] High density lipoprotein (HD L) measurementOrdered By: Fortino Logan on 10-08-2024 Cholesterol in HDL [Mass/Vol] 69 mg/dL >40 [facility] Comment on above: The drugs N-Acetylcy steine and Metamizole may falsely depress this assay. Reference Range HDL <40 mg/dL Low HDL Cholesterol HDL >or= 60 mg/dL High HDL Cholesterol Immature granulocytes/100 WB C Auto (Bld)Ordered By: Fortino Logan on 10-08-2024 Immature granulocytes/100 WBC (Bld) 1.000 % High 0.0-0.9 [facility] Comment on above: IG% - Immature Granu locytes (promyelocytes, myelocytes and metamyelocytes) > 1% indicates that a LEFT SHIFT is Present. Lipid Profileon 10-08-2024 Cholesterol [Mass/Vol] 231 mg/dL High 200 [facility] Comment on above: Result Comment: <200 mg/dL Desirable 200-240 mg/dL Borderline >240 mg/dL High Risk Performed By: #### L 506.1000, L503.0105, L501.9985, L500.4100, L100.0100 #### [facility] [address] [place], [address] Cholesterol in HDL [Mass/Vol] 69 mg/dL Normal [facility] Comment on above: Result Comment: The drugs N-Acetylcysteine and Metamizole may falsely depress this assay. Reference Range HDL <40 mg/dL Low HDL Cholesterol HDL >or= 60 mg/dL High HDL Cholesterol Performed By: #### L 506.1000, L503.0105, L501.9985, L500.4100, L100.0100 #### [facility] [address] [place], [address] Cholesterol in LDL [Mass/Vol] 139 mg/dL High 0-130 [facility] Comment on above: Performed By: #### L 506.1000, L503.0105, L501.9985, L500.4100, L100.0100 #### [facility] [address] [place], [address] Cholesterol in VLDL [Mass/Vol] 23 mg/dL Normal 5-40 [facility] Comment on above: Performed By: #### L 506.1000, L503.0105, L501.9985, L500.4100, L100.0100 #### [facility] [address] [place], [address] Triglyceride [Mass/Vol] 113 mg/dL Normal [facility] Comment on above: Result Comment: The drugs N-Acetylcysteine and Metamizole may falsely depress this assay. Serum Triglycerides Reference Interval Normal <150 mg/dL Borderline high 150 - 199 mg/dL High 200 - 499 mg/dL Very High > or = 500 mg/dL Performed By: #### L 506.1000, L503.0105, L501.9985, L500.4100, L100.0100 #### [facility] [place], [address] Low density lipoprotein (LDL ) cholesterol measurementOrdered By: Fortino Logan on 10-08-2024 Cholesterol in LDL [Mass/Vol] 139 mg/dL High 0-130 [facility] Lymphocytes Auto (Unsp spec) [#/Vol]Ordered By: Fortino Logan on 10-08-2024 Lymphocytes (Bld) [#/Vol] 1.62 10*3/uL 0.83-4.51 [facility] Lymphocytes/100 WBC Auto (Un sp spec)Ordered By: Fortino Logan on 10-08-2024 Lymphocytes/100 WBC (Bld) 24.0 % 19-41 [facility] MCV (mean corpuscular volume ) determinationOrdered By: Fortino Logan on 10-08-2024 MCV (RBC) [Entitic vol] 84.7 fL 81-99 [facility] Mean corpuscular hemoglobin (MCH) determinationOrdered By: Fortino Logan on 10-08-2024 MCH (RBC) [Entitic mass] 28.0 pg 27.0-32.0 [facility] Mean corpuscular hemoglobin concentration (MCHC) determinationOrdered By: Fortino Logan on 10-08-2024 MCHC (RBC) [Mass/Vol] 33.1 g/dL 32-36 [facility] Mean platelet volume determi nationOrdered By: Fortino Logan on 10-08-2024 Platelet mean volume (Bld) [Entitic vol] 8.8 fL 6.2-12.0 [facility] Monocyte percentageOrdered B y: Fortino Logan on 10-08-2024 Monocytes/100 WBC (Bld) 11.4 % High 0-10 [facility] Neutrophil percentageOrdered By: Fortino Logan on 10-08-2024 Neutrophils/100 WBC (Bld) 60.6 % 47-70 [facility] Nucleated red blood cell per centageOrdered By: Fortino Logan on 10-08-2024 Nucleated RBC/100 WBC (Bld) [Ratio] 0 % 0-5 [facility] Platelet countOrdered By: Elan Lgoan on 10-08-2024 Platelets (Bld) [#/Vol] 464 10*3/uL High 150-450 [facility] RBC Auto (Bld) [#/Vol]Ordere d By: Fortino Logan on 10-08-2024 RBC (Bld) [#/Vol] 4.32 10*6/uL 4.2-5.4 [facility] Serum or plasma cholesterol measurement (mass/volume)Ordered By: Fortino Logan on 10-08-2024 Cholesterol [Mass/Vol] 231 mg/dL High <200 [facility] Comment on above: <200 mg/dL Desirable 200-240 mg/dL Borderline >240 mg/dL High Risk Triglycerides measurementOrd ered By: Fortino Logan on 10-08-2024 Triglyceride [Mass/Vol] 113 mg/dL <199 [facility] Comment on above: The drugs N-Acetylcy steine and Metamizole may falsely depress this assay.Serum Triglycerides Reference Interval Normal <150 mg/dL Borderline high 150 - 199 mg/dL High 200 - 499 mg/dL Very High > or = 500 mg/dL Very low density lipoprotein (VLDL) cholesterol measurementOrdered By: Fortino Logan on 10-08-2024 VLDL Cholesterol 23 mg/dL 5-40 [facility] Vitamin B12on 10-08-2024 Cobalamin (Vitamin B12) [Mass/Vol] 301 pg/mL Normal 211-911 [facility] Comment on above: Performed By: #### L 506.1000, L503.0105, L501.9985, L500.4100, L100.0100 #### [facility] [address] [place], [place], [address] Vitamin B12 measurementOrder ed By: Fortino Logan on 10-08-2024 Cobalamin (Vitamin B12) [Mass/Vol] 301 pg/mL 211-911 [facility] Vitamin D,25 Hydroxyon 10-08 Vitamin D 25-OH 24.4 ng/mL Normal [facility] Comment on above: Result Comment: Dali min D 25(OH) Status Range Deficiency <20 ng/mL (50nmol/L) Insufficiency 20 - 30 ng/mL (50 - 75 nmol/L) Sufficiency 30 - 100 ng/mL (75 - 250 nmol/L) Toxicity >100 ng/mL (>250 nmol/L) Performed By: #### L 506.1000, L503.0105, L501.9985, L500.4100, L100.0100 #### [facility] [place], [address] White blood cell (WBC) count Ordered By: Fortino Logan on 10-08-2024 WBC (Bld) [#/Vol] 6.8 10*3/uL 4.4-11.0 [facility] 08-24-2024 [facility] Telephone (DAX) ----- BRENDA VILLALOBOS ([id number]) 1970 F Date Time Provider Department 08/24/24 BAILEY WILLIAMSON During your visit today, we recorded the following information about you: Francisco Carver LPN 08/24/2024 8:37 AM Signed ----- Message from Bailey Williamson PA-C sent at 08/24/2024 7:49 AM EST ----- Sent via [facility] as well Your Cologuard test came back negative (low risk of colorectal cancer). I recommend repeating colorectal cancer screening in 3 years. Francisco Carver LPN 08/24/2024 8:49 AM Signed Patient notified of results and provider's instructions. Patient verbalizes understanding. Francisco Carver LPN Allergies As of Date: 08/24/2024 Noted Allergy Reaction MEDROL DOSE PACK (METHYLPREDNISOL*02/01/20 17 7 - Swelling Comments: Swelling of throat BACTRIM (SULFAMETHOXAZOLE) 08/12/2013 9 - Itching CARAFATE (SUCRALFATE) 05/31/2024 14 - Other: See Comments Comments: Made her constipated MORPHINE 08/12/2013 9 - Itching TRIMETHOPRIM 03/12/2019 14 - Other: See Comments 16 - Unknown ZOLOFT (SERTRALINE) 04/19/2020 14 - Other: See Comments Comments: Chest felt heavy. Date Reviewed: 08/17/2024 Reviewed by: Sj Pedro MA - Fully Assessed Reason for Visit: Results [95] Prescriptions as of 08/24/2024 - fluticasone (FLONASE) 50 mcg/actuation nasal spray Use 2 Sprays in each nostril once daily. Rinse mouth after use. - SENOKOT 8.6 mg tab Take 1 tablet by mouth two times a day. - busPIRone (BUSPAR) 15 mg tablet Take 1.5 tabs twice a day. - FLUoxetine (PROZAC) 40 mg capsule Take 1 capsule by mouth once daily. - levothyroxine (SYNTHROID) 88 mcg tablet Take one tab by mouth daily.Friday -Friday and none on Friday. - esomeprazole (NEXIUM) 40 mg capsule Take 1 capsule by mouth two times a day before meals. - tiotropium (SPIRIVA) 18 mcg inhalation capsule Inhale 1 capsule as instructed once daily. - albuterol (PROVENTIL) 2.5 mg /3 mL (0.083 %) nebulizer solution Use 3 mL via nebulizer every 6 hours as needed for wheezing/shortness of breath. Use over 5-15minutes. - albuterol HFA (PROAIR HFA) 90 mcg/actuation inhaler USE 2 INHALATIONS EVERY 6 HOURS INSTRUCTED NEEDED - fluticasone-salmeterol (ADVAIR DISKUS) 250-50 mcg/dose inhaler Inhale 1 Puff as instructed two times a day. Rinse and gargle mouth after use with water. - ipratropium-albuterol (DUONEB) 0.5 mg-3 mg(2.5 mg base)/3 mL nebu Inhale 3 mL as instructed two times a day. - Cholecalciferol, Vitamin D3, 50 mcg (2,000 unit) cap Take 1 capsule by mouth once daily. - cyanocobalamin (VITAMIN B-12) 1,000 mcg tab Take 1 tablet by mouth once daily. - ergocalciferol, vitamin D2, (VITAMIN D2 ORAL) Take by mouth. 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] Vitamin D deficiency [E55.9] Smoker [F17.200] 08/12/2013 Allergic rhinitis [J30.9] 09/03/2013 Insomnia [G47.00] 04/12/2014 Acquired hypothyroidism [E03.9] 04/25/2015 Constipation [K59.00] 08/23/2015 Encounter for gynecological examination without*04/17/2016 Well adult exam [Z00.00] 04/17/2016 Gastro-esophageal reflux disease with esophagit*10/18/2016 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] 10/18/2016 Encounter for screening for cardiovascular diso*10/18/2016 07/27/2024 Encounter for screening for diabetes mellitus [*10/18/2016 Elevated fasting blood sugar [R73.01] 04/18/2017 Encounter for screening mammogram for breast ca*04/22/2018 Dyslipidemia [E78.5] 04/22/2018 Spastic bladder [N32.89] 10/23/2018 Situational depression [F43.21] 04/19/2020 Varicose veins of bilateral lower extremities w*04/19/2020 Medication management [Z79.899] 04/19/2020 Vitamin B12 deficiency [E53.8] 10/25/2020 MURIEL (generalized anxiety disorder) [F41.1] 05/18/2021 Screening for colon cancer [Z12.11] 05/18/2021 OA (osteoarthrosis) [M19.90] 05/18/2021 Bilateral groin pain [R10.31, R10.32] 06/04/2023 Bilateral hip pain [M25.551, M25.552] 06/04/2023 Encounter Status:Closed by FRANCISCO CARVER on 08/24/24 [facility] Jorge 08-17-2024 CNOV Office Visit (FAMPWS ) ----- BRENDA VILLALOBOS ([id number]) 1970 F Date Time Provider Department 08/17/24 2:40 PM MELANY BLANC During your visit today, we recorded the following information about you: Pulse Respiration Blood pressure Weight 76/minute 16/minute 125/83 58.5 kg Melany Blanc, ZITA.RN RECRUITMENT 08/17/2024 2:49 PM Signed Chief Complaint Patient presents with: Follow Up HPI Brenda Villalobos is a 54 year old female who presents here today for Above Complaints.. Patient presents for BP check. Past medical history, appointments, medications, allergies reviewed. 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 Has been on omeprazole, pantoprazole and prevacid with no relief of symptoms. Nexium has been helpful and dexalant Insomnia 04/12/2014 OA (osteoarthrosis) 05/18/2021 Post-menopausal Situational depression 04/19/2020 Smoker 08/12/2013 Started at the age of 11 up to 1.5 PPD Spastic bladder 10/23/2018 Varicose veins of bilateral lower extremities with other complications 04/19/2020 bleeding at times Vitamin B12 deficiency 10/25/2020 Vitamin D deficiency Well adult exam 04/17/2016 last done: 04/19/20 Previous Surgical History PAST SURGICAL HISTORY Procedure Laterality Date 48 HOUR PH STUDY 09/13/2021 Demeester score-28.6; Dr. Gresham EGD TRANSORAL BIOPSY SINGLE/MULTIPLE 05/27/2016 EGD WITH BIOPSY(S) 09/13/2021 Dr. Gresham ESOPHAGOGASTRODUODENOSCOP Y TRANSORAL DIAGNOSTIC 03/16/2020 OFFICE LEEP 2001 TOTAL ABDOMINAL HYSTERECT W/WO RMVL TUBE OVARY Bilateral 2002 bso Family History FAMILY HISTORY Problem Relation Age of Onset COPD Mother Heart Mother Thyroid Mother Hypertension Mother Kidney Disease Mother Kidney failure Asthma Mother Breast Cancer Mother Seizures Brother Coronary Artery Disease Maternal Grandmother Thyroid Daughter Diabetes Son Type 1 Hypertension Son Asthma Son Alzheimer's Disease Paternal Uncle Prostate Cancer Paternal Uncle Ovarian cancer No Family History Colon Cancer No Family History Hyperlipidemia No Family History Stroke No Family History Patient Allergies ALLERGIES Allergen Reactions Medrol Dose Pack [M* Swelling Swelling of throat Bactrim [Sulfametho* Itching Carafate [Sucralfat* Other: See Comments Made her constipated Morphine Itching Trimethoprim Other: See Comments, Unknown Zoloft [Sertraline] Other: See Comments Chest felt heavy. Current Medications Current Outpatient Medications on File Prior to Visit Medication Sig fluticasone (FLONASE) 50 mcg/actuation nasal spray Use 2 Sprays in each nostril once daily. Rinse mouth after use. SENOKOT 8.6 mg tab Take 1 tablet by mouth two times a day. busPIRone (BUSPAR) 15 mg tablet Take 1.5 tabs twice a day. FLUoxetine (PROZAC) 40 mg capsule Take 1 capsule by mouth once daily. levothyroxine (SYNTHROID) 88 mcg tablet Take one tab by mouth daily.Friday -Friday and none on Friday. esomeprazole (NEXIUM) 40 mg capsule Take 1 capsule by mouth two times a day before meals. tiotropium (SPIRIVA) 18 mcg inhalation capsule Inhale 1 capsule as instructed once daily. albuterol (PROVENTIL) 2.5 mg /3 mL (0.083 %) nebulizer solution Use 3 mL via nebulizer every 6 hours as needed for wheezing/shortness of breath. Use over 5-15minutes. albuterol HFA (PROAIR HFA) 90 mcg/actuation inhaler USE 2 INHALATIONS EVERY 6 HOURS INSTRUCTED NEEDED fluticasone-salmeterol (ADVAIR DISKUS) 250-50 mcg/dose inhaler Inhale 1 Puff as instructed two times a day. Rinse and gargle mouth after use with water. ipratropium-albuterol (DUONEB) 0.5 mg-3 mg(2.5 mg base)/3 mL nebu Inhale 3 mL as instructed two times a day. Cholecalciferol, Vitamin D3, 50 mcg (2,000 unit) cap Take 1 capsule by mouth once daily. cyanocobalamin (VITAMIN B-12) 1,000 mcg tab Take 1 tablet by mouth once daily. ergocalciferol, vitamin D2, (VITAMIN D2 ORAL) Take by mouth. No current facility-administered medications on file prior to visit. Social History Social History Tobacco Use Smoking status: Every Day Current packs/day: 0.50 Average packs/day: 0.5 packs/day for 43.3 years (21.6 ttl pk-yrs) Types: Cigarettes Start date: 1981 Smokeless tobacco: Never Tobacco comments: Both parents smoked in [employer] (more content not included)... Normal [facility] Absolute lymphocyte countOrd ered By: Melany Blanc on 12-09-2023 Lymphocytes Auto (Unsp spec) [#/Vol] 1.44 10*3/uL 0.83-4.51 [facility] Automated lymphocyte count a s percentage of total leukocytesOrdered By: Melany Blanc on 12-09-2023 Lymphocytes/100 WBC Auto (Unsp spec) 29.1 % 19-41 [facility] Basophil percentageOrdered B y: Melany Blanc on 12-09-2023 Basophils/100 WBC (Bld) 0.8 % 0-1 [facility] [facility] Eosinophils/100 WBC (Bld) 2.4 % 0-5 [facility] Hemoglobin (Bld) [Mass/Vol] 12.5 g/dL 12.0-15.0 [facility] Monocytes/100 WBC (Bld) 13.7 % 0-10 [facility] Neutrophils (Bld) [#/Vol] 2.7 10*3/uL 2.0-7.7 [facility] Neutrophils/100 WBC (Bld) 53.6 % 47-70 [facility] WBC (Bld) [#/Vol] 5.0 10*3/uL 4.4-11.0 [facility] Determination of erythrocyte mean corpuscular volume (MCV)Ordered By: Melany Blanc on 12-09-2023 MCV (RBC) [Entitic vol] 85.1 fL 81-99 [facility] Erythrocyte distribution wid th ratioOrdered By: Melany Blanc on 12-09-2023 Erythrocyte distribution width (RBC) [Ratio] 13.3 % 11.6-14.6 [facility] Erythrocyte distribution wid th standard deviationOrdered By: Melany Blanc on 12-09-2023 Erythrocyte distribution width (RBC) [Entitic vol] 41.3 fL 35.1-43.9 [facility] Hematocrit Auto (Bld) [Volum e fraction]Ordered By: Melany Blanc on 12-09-2023 Hematocrit (Bld) [Volume fraction] 37.7 % 37-47 [facility] Immature granulocytes/100 WB C Auto (Bld)Ordered By: Melany Blanc on 12-09-2023 Immature granulocytes/100 WBC (Bld) 0.400 % 0.0-0.9 [facility] Comment on above: IG% - Immature Granu locytes (promyelocytes, myelocytes and metamyelocytes) > 1% indicates that a LEFT SHIFT is Present. Iron measurement (mass/mass) Ordered By: Melany Blanc on 12-09-2023 Iron (Unsp spec) [Mass/Mass] 71 ug/dL 50-170 [facility] Laboratory - Chemistry and C hemistry - challengeOrdered By: Melany Blanc on 12-09-2023 Ferritin [Mass/Vol] 27 ng/mL 8-252 [facility] - Hematology and Cell countsOrdered By: Melany Blanc on 12-09-2023 MCH (RBC) [Entitic mass] 28.2 pg 27.0-32.0 [facility] MCHC (RBC) [Mass/Vol] 33.2 g/dL 32-36 [facility] Nucleated RBC/100 WBC (Bld) [Ratio] 0 % 0-5 [facility] Platelet mean volume (Bld) [Entitic vol] 9.2 fL 6.2-12.0 [facility] Platelets (Bld) [#/Vol] 452 10*3/uL 150-450 [facility] No Panel InformationOrdered By: Melany Blanc on 12-09-2023 Total Iron Binding Capacity 316 ug/dL 250-450 [facility] RBC Auto (Bld) [#/Vol]Ordere d By: Melany Blanc on 12-09-2023 RBC (Bld) [#/Vol] 4.43 10*6/uL 4.2-5.4 [facility] Serum or plasma iron saturat ion measurement (mass fraction)Ordered By: Melany Blanc on 12-09-2023 Iron saturation [Mass fraction] 22.5 % 15.0-55.0 [facility] Basophil percentageOrdered B y: Fortino Logan on 12-03-2023 Cholesterol [Mass/Vol] 178 mg/dL <200 [facility] Comment on above: <200 mg/dL Desirable 200-240 mg/dL Borderline >240 mg/dL High Risk Triglyceride [Mass/Vol] 101 mg/dL <199 [facility] Comment on above: The drugs N-Acetylcy steine and Metamizole may falsely depress this assay.Serum Triglycerides Reference Interval Normal <150 mg/dL Borderline high 150 - 199 mg/dL High 200 - 499 mg/dL Very High > or = 500 mg/dL LIPID PANEL (EXTERNAL)on HDC-L 41 mg/dL 41 mg/dL [facility] LDL Chol, calculated 117 MG/DL 130 MG/DL [facility] VLDL 20 mg/dL 5 - 40 mg/dL [facility] LIPID PANEL (OUTSIDE)on 11-14 LDL:HDL Ratio [facility] Non-HDL Cholesterol [facility] TC:HDL Ratio [facility] VLDL Cholesterol [facility] Laboratory - Chemistry and C hemistry - challengeOrdered By: Fortino Logan on 12-03-2023 Cholesterol in HDL [Mass/Vol] 41 mg/dL >40 [facility] Comment on above: The drugs N-Acetylcy steine and Metamizole may falsely depress this assay. Reference Range HDL <40 mg/dL Low HDL Cholesterol HDL >or= 60 mg/dL High HDL Cholesterol Cholesterol in LDL [Mass/Vol] 117 mg/dL 0-130 [facility] Cobalamin (Vitamin B12) [Mass/Vol] 247 pg/mL 211-911 [facility] No Panel InformationOrdered By: Fortino Logan on 12-03-2023 Vitamin D 25-Hydroxy 33.8 ng/mL [facility] Comment on above: Vitamin D 25(OH) Sta tus Range Deficiency <20 ng/mL (50nmol/L) Insufficiency 20 - 30 ng/mL (50 - 75 nmol/L) Sufficiency 30 - 100 ng/mL (75 - 250 nmol/L) Toxicity >100 ng/mL (>250 nmol/L) VLDL Cholesterol 20 mg/dL 5-40 [facility] No Panel Informationon 12-03 TSH 0.73 IU/ml 0.358 - 3.74 IU/ml [facility] VITAMIN D 33.8 ng/mL 31 - 80 ng/mL [facility] Serum or plasma thyroid stim ulating hormone (TSH) measurement (units/volume)Ordered By: Fortino Logan on 12-03-2023 TSH Qn 0.73 uIU/mL 0.358-3.74 [facility] VITAMIN B12 BLOODon 12-03-19 24 Cobalamin (Vitamin B12) [Mass/Vol] 247 pg*/mL 211 - 911 pg*/mL [facility] Whole blood hemoglobin A1c/t otal hemoglobin ratio (mass fraction)Ordered By: Fortino Logan on 12-03-2023 HbA1c (Bld) [Mass fraction] 5.6 % 3.8-5.6 [facility] Comment on above: Normal < 5.7 % Predi abetic 5.7 - 6.4 % Diabetic >or= 6.5 % Please note range changes. Absolute lymphocyte countOrd ered By: Juan Edwards on 08-28-2023 Lymphocytes Auto (Unsp spec) [#/Vol] 2.49 10*3/uL 0.83-4.51 [facility] Basophil percentageOrdered B y: Juan Edwards on 08-28-2023 Basophils/100 WBC (Bld) 0.9 % 0-1 [facility] Chloride [Moles/Vol] 102 mmol/L 98-107 [facility] Eosin[facility]/100 WBC (Bld) 1.7 % 0-5 [facility] Glucose [Mass/Vol] 101 mg/dL 74-106 [facility] Comment on above: Fasting Glucose resu lt from 100 to 125 mg/dL suggests IMPAIRED HOMEOSTASIS per A.D.A. criteria. Neutrophils (Bld) [#/Vol] 3.4 10*3/uL 2.0-7.7 [facility] Neutrophils/100 WBC (Bld) 49.0 % 47-70 [facility] Potassium [Moles/Vol] 3.9 mmol/L 3.5-5.1 [facility] Sodium [Moles/Vol] 134 mmol/L 136-145 [facility] WBC (Bld) [#/Vol] 6.9 10*3/uL 4.4-11.0 [facility] Blood erythrocytes count (nu mber/volume)Ordered By: Juan Edwards on 08-28-2023 RBC (Bld) [#/Vol] 3.99 10*6/uL 4.2-5.4 [facility] Blood hemoglobin measurement (mass/volume)Ordered By: Juan Edwards on 08-28-2023 Hemoglobin (Bld) [Mass/Vol] 11.4 g/dL 12.0-15.0 [facility] Blood lymphocytes/100 leukoc ytesOrdered By: Juan Edwards on 08-28-2023 Lymphocytes/100 WBC (Bld) 35.9 % 19-41 [facility] Blood monocytes/100 leukocyt esOrdered By: Juan Edwards on 08-28-2023 Monocytes/100 WBC (Bld) 12.2 % 0-10 [facility] Blood platelet mean volumeOr dered By: Juan Edwards on 08-28-2023 Platelet mean volume (Bld) [Entitic vol] 9.1 fL 6.2-12.0 [facility] Determination of erythrocyte mean corpuscular volume (MCV)Ordered By: Juan Edwards on 08-28-2023 MCV (RBC) [Entitic vol] 87.2 fL 81-99 [facility] Hematocrit Auto (Bld) [Volum e fraction]Ordered By: Juan Edwards on 08-28-2023 Hematocrit (Bld) [Volume fraction] 34.8 % 37-47 [facility] Influenza virus A and B and SARS-CoV-2 (COVID-19) Ag panel - Upper respiratory specimOrdered By: Juan Edwards on 08-28-2023 SARS-CoV-2 & FLU Antigen (Rapid) SARS-CoV-2 (COVID 19) [facility] SARS-CoV-2 & FLU Antigen (Rapid) Influenzae A [facility] Laboratory - Chemistry and C hemistry - challengeOrdered By: Juan Edwards on 08-28-2023 CO2 [Moles/Vol] 30.0 mmol/L 21.0-32.0 [facility] Urea nitrogen/Creatinine [Mass ratio] 9.3 mg/mg 10-20 [facility] - Hematology and Cell countsOrdered By: Juan Edwards on 08-28-2023 Erythrocyte distribution width (RBC) [Entitic vol] 43.2 fL 35.1-43.9 [facility] Erythrocyte distribution width (RBC) [Ratio] 13.6 % 11.6-14.6 [facility] Immature granulocytes/100 WBC (Bld) 0.300 % 0.0-0.9 [facility] Comment on above: IG% - Immature Granu locytes (promyelocytes, myelocytes and metamyelocytes) > 1% indicates that a LEFT SHIFT is Present. MCH (RBC) [Entitic mass] 28.6 pg 27.0-32.0 [facility] Nucleated RBC/100 WBC (Bld) [Ratio] 0 % 0-5 [facility] MCHC Auto (RBC) [Mass/Vol]Or dered By: Juan Edwards on 08-28-2023 MCHC (RBC) [Mass/Vol] 32.8 g/dL 32-36 [facility] No Panel InformationOrdered By: Juan Edwards on 08-28-2023 Estimated Creatinine Clearance Calc 77.34 ml/min [facility] Estimated GFR (MDRD) Amer 122 mL/min >60 [facility] Comment on above: GFR Calc Estimated GFR (MDRD) Non-Af Amer 101 mL/min >60 [facility] Comment on above: Non- GFR Calc Troponin I High Sensitivity 4 pg/mL 3.0-54.0 [facility] Comment on above: Please Note: New Mae t Units and Gender Specific Reference Ranges. For more information see Policy Stat Procedure [place] High Sensitivity Troponin (TNIH) and attachments. Platelets bldOrdered By: Danelle Edwards on 08-28-2023 Platelets (Bld) [#/Vol] 376 10*3/uL 150-450 [facility] Serum or plasma calcium elio urement (mass/volume)Ordered By: Juan Edwards on 11-16-2023 Calcium [Mass/Vol] 8.8 mg/dL 8.5-10.1 [facility] Serum or plasma creatinine m easurement (mass/volume)Ordered By: Juan Edwards on 08-28-2023 Creatinine [Mass/Vol] 0.65 mg/dL 0.55-1.02 [facility] Comment on above: The validity of the calculated GFR & GFRAA in patients over 70 years has not been determined. Clinical correlation is essential. Serum or plasma urea nitroge n measurement (mass/volume)Ordered By: Juan Edwards on 08-28-2023 Urea nitrogen [Mass/Vol] 6 mg/dL 7-18 [facility] Thin prep Papanicolaou smear with manual screeningOrdered By: Juan Edwards on 08-28-2023 Thin prep Papanicolaou smear with manual screening 2 5-15 [facility] XR HIP BILATERAL 5V PEL/AP/L AT EACH HIPon 07-02-2023 IMPRESSION: Maintained hip joints. Can Crimper: CHAYITO Transcribe Date/Time: Jul 02 2023 5:45P Dictated by : RIKY GOMES DO This examination was interpreted and the report reviewed and electronically signed by: RIKY GOMES DO on Jul 02 2023 5:46PM [facility] DIVISION OF RADIOLOGY * * *Final Report* * * DATE OF EXAM: Jul 01 2023 3:23PM WOX [id number] - XR HIP RICH 5V PEL+ AP/LAT EA HIP / PROCEDURE REASON: multiple diagnoses * * * * Physician Interpretation * * * * EXAMINATION: XR HIP RICH 5V PEL+ AP/LAT EA HIP PATIENT/TECHNOLOGIST PROVIDED HISTORY: Chronic anterior bilateral hip pain increasing over time without injury. CLINICAL INFORMATION: 53 years old Female with Bilateral groin pain. Bilateral hip pain. TECHNIQUE: XR HIP RICH 5V PEL+ AP/LAT EA HIP Laterality: BILATERAL Number of different views (projections): 5 COMPARISON: None. RESULT: No fracture. Hip joint spaces are maintained. Sacroiliac joints and pubic symphysis are within normal limits. DIVISION OF RADIOLOGY Provider, Alessandra Silverman - 07/02/2023 * * *Final Report* * * DATE OF EXAM: Jul 01 2023 3:23PM WOX [id number] - XR HIP RICH 5V PEL+ AP/LAT EA HIP / PROCEDURE REASON: multiple diagnoses * * * * Physician Interpretation * * * * EXAMINATION: XR HIP RICH 5V PEL+ AP/LAT EA HIP PATIENT/TECHNOLOGIST PROVIDED HISTORY: Chronic anterior bilateral hip pain increasing over time without injury. CLINICAL INFORMATION: 53 years old Female with Bilateral groin pain. Bilateral hip pain. TECHNIQUE: XR HIP RICH 5V PEL+ AP/LAT EA HIP Laterality: BILATERAL Number of different views (projections): 5 COMPARISON: None. RESULT: No fracture. Hip joint spaces are maintained. Sacroiliac joints and pubic symphysis are within normal limits. IMPRESSION IMPRESSION: Maintained hip joints. Can Crimper: PSCB Transcribe Date/Time: Jul 02 2023 5:45P Dictated by : RIKY GOMES DO This examination was interpreted and the report reviewed and electronically signed by: RIKY GOMES DO on Jul 02 2023 5:46PM EST [facility] XR HIP BILATERAL 5V PEL/AP/L AT EACH HIPOrdered By: Ccf Provider on 07-02-2023 [facility] XR HIP BILATERAL 5V PEL/AP/L AT EACH HIPon 07-01-2023 Radiology Study observation (narrative) [facility] Absolute lymphocyte countOrd ered By: Fortino Logan on 06-02-2023 Lymphocytes Auto (Unsp spec) [#/Vol] 2.51 10*3/uL 0.83-4.51 [facility] Automated blood hematocrit ( percentage)Ordered By: Fortino Logan on 06-02-2023 Hematocrit (Bld) [Volume fraction] 36.5 % 37-47 [facility] Basophil percentageOrdered B y: Fortino Logan on 06-02-2023 Basophil percentage 0 SEEN /hpf 0-5 [facility] Basophils/100 WBC (Bld) 0.7 % 0-1 [facility] Bilirubin [Mass/Vol] 0.60 mg/dL 0.20-1.00 [facility] Comment on above: For patients on eltr ombopag therapy, use of Dimension [place] TBIL is not recommended. Chloride [Moles/Vol] 103 mmol/L 98-107 [facility] Cholesterol [Mass/Vol] 210 mg/dL <200 [facility] Comment on above: <200 mg/dL Desirable 200-240 mg/dL Borderline >240 mg/dL High Risk Eosinophils/100 WBC (Bld) 1.9 % 0-5 [facility] Glucose [Mass/Vol] 88 mg/dL 74-106 [facility] Neutrophils (Bld) [#/Vol] 3.7 10*3/uL 2.0-7.7 [facility] Neutrophils/100 WBC (Bld) 51.0 % 47-70 [facility] Potassium [Moles/Vol] 3.8 mmol/L 3.5-5.1 [facility] Protein [Mass/Vol] 7.3 g/dL 6.4-8.2 [facility] Sodium [Moles/Vol] 135 mmol/L 136-145 [facility] Triglyceride [Mass/Vol] 95 mg/dL <199 [facility] Comment on above: The drugs N-Acetylcy steine and Metamizole may falsely depress this assay.Serum Triglycerides Reference Interval Normal <150 mg/dL Borderline high 150 - 199 mg/dL High 200 - 499 mg/dL Very High > or = 500 mg/dL WBC (Bld) [#/Vol] 7.2 10*3/uL 4.4-11.0 [facility] Bilirubin Test strip Ql (U)O rdered By: Fortino Logan on 06-02-2023 Bilirubin Ql (U) Negative Negative [facility] Blood erythrocytes count (nu mber/volume)Ordered By: Fortino Logan on 06-02-2023 RBC (Bld) [#/Vol] 4.35 10*6/uL 4.2-5.4 [facility] Blood hemoglobin measurement (mass/volume)Ordered By: Fortino Logan on 06-02-2023 Hemoglobin (Bld) [Mass/Vol] 12.3 g/dL 12.0-15.0 [facility] Blood lymphocytes/100 leukoc ytesOrdered By: Fortino Logan on 06-02-2023 Lymphocytes/100 WBC (Bld) 34.7 % 19-41 [facility] Blood monocytes/100 leukocyt esOrdered By: Fortino Logan on 06-02-2023 Monocytes/100 WBC (Bld) 11.3 % 0-10 [facility] Blood platelet mean volumeOr dered By: Fortino Logan on 06-02-2023 Platelet mean volume (Bld) [Entitic vol] 9.0 fL 6.2-12.0 [facility] CBC W/DIFF/PLT (EXTERNAL LAB ROSARIO)on 06-02-2023 BASO ABSOLUTE [facility] EOS ABSOLUTE [facility] Immature Gran % [facility] IMMATURE GRANS ABSOLUTE [facility] Lymphocytes (Bld) [#/Vol] 2.51 10*3/uL 0.7 - 3.1 k/uL [facility] Lymphocytes/100 WBC (Bld) 24.7 % [facility] MCH 28.3 Pg 26.6 - 33 Pg [facility] MONOCYTES ABSOLUTE [facility] NEUTROPHILS ABSOLUTE 3.7 k/uL 1.4 - 7 .0 k/uL [facility] Neutrophils/100 WBC (Bld) 51 % [facility] CMP (EXTERNAL)on 06-02-2023 Alk Phos Total 84 U/L 45 - 117 U/L [facility] AST [Catalytic activity/Vol] 10 U/L 8 - 37 U/L [facility] Bili Total 0.60 mg/dL 0.2 - 1 mg/dL [facility] CO2 [Moles/Vol] 27 mmol/L 21 - 32 MEQ/L [facility] GFR AFR AMER 99 mL/MIN [facility] GFR/1.73 sq M.predicted among non-blacks MDRD (S/P/Bld) [Vol rate/Area] 82 mL/min/{1.73_m2} [facility] Determination of erythrocyte mean corpuscular volume (MCV)Ordered By: Fortino Logan on 06-02-2023 MCV (RBC) [Entitic vol] 83.9 fL 81-99 [facility] Ketones Test strip Ql (U)Ord ered By: Fortino Logan on 06-02-2023 Ketones Ql (U) Negative Negative [facility] LIPID PANEL (OUTSIDE)on 05-14 LDL:HDL Ratio [facility] Non-HDL Cholesterol [facility] TC:HDL Ratio [facility] VLDL Cholesterol [facility] Laboratory - Chemistry and C hemistry - challengeOrdered By: Fortino Logan on 06-02-2023 ALP [Catalytic activity/Vol] 84 U/L 45-117 [facility] ALT [Catalytic activity/Vol] 20 U/L 13-56 [facility] CO2 [Moles/Vol] 27.0 mmol/L 21.0-32.0 [facility] Cobalamin (Vitamin B12) [Mass/Vol] 228 pg/mL 211-911 [facility] Globulin (S) [Mass/Vol] 3.7 g/dL 2.2-4.2 [facility] Magnesium [Mass/Vol] 2.5 mg/dL 1.6-2.6 [facility] Urea nitrogen/Creatinine [Mass ratio] 9.0 mg/mg 10-20 [facility] Laboratory - Hematology and Cell countsOrdered By: Fortino Logan on 06-02-2023 Erythrocyte distribution width (RBC) [Entitic vol] 40.1 fL 35.1-43.9 [facility] Erythrocyte distribution width (RBC) [Ratio] 12.9 % 11.6-14.6 [facility] Immature granulocytes/100 WBC (Bld) 0.400 % 0.0-0.9 [facility] Comment on above: IG% - Immature Granu locytes (promyelocytes, myelocytes and metamyelocytes) > 1% indicates that a LEFT SHIFT is Present. MCH (RBC) [Entitic mass] 28.3 pg 27.0-32.0 [facility] Nucleated RBC/100 WBC (Bld) [Ratio] 0 % 0-5 [facility] MCHC [Mass/volume] by Automa mayco countOrdered By: Fortino oLgan on 06-02-2023 MCHC (RBC) [Mass/Vol] 33.7 g/dL 32-36 [facility] Magnesium [Mass/Vol]on 06-02 Magnesium.plasma/Magnesi um.RBC (Bld) [Molar ratio] 2.5 [facility] Mucus LM Ql (Urine sed)Order ed By: Fortino Logan on 06-02-2023 Mucus Ql (Urine sed) 0 SEEN /hpf [facility] Nitrite Test strip Ql (U)Ord ered By: Fortino Logan on 06-02-2023 Nitrite Ql (U) Negative Negative [facility] No Panel InformationOrdered By: Fortino Logan on 06-02-2023 Estimated GFR (MDRD) Amer 99 mL/min >60 [facility] Comment on above: GFR Calc Estimated GFR (MDRD) Non-Af Amer 82 mL/min >60 [facility] Comment on above: Non- GFR Calc Thyroid Stimulating Hormone (TSH) 1.15 uIU/mL 0.358-3.74 [facility] Vitamin D 25-Hydroxy 24.0 ng/mL [facility] Comment on above: Vitamin D 25(OH) Sta tus Range Deficiency <20 ng/mL (50nmol/L) Insufficiency 20 - 30 ng/mL (50 - 75 nmol/L) Sufficiency 30 - 100 ng/mL (75 - 250 nmol/L) Toxicity >100 ng/mL (>250 nmol/L) Platelets bldOrdered By: Haim Logan on 06-02-2023 Platelets (Bld) [#/Vol] 380 10*3/uL 150-450 [facility] Protein Test strip Ql (U)Ord ered By: Fortino Logan on 06-02-2023 Protein Ql (U) 15 mg/dl Negative [facility] Serum or plasma albumin elio urement (mass/volume)Ordered By: Fortino Logan on 06-02-2023 Albumin [Mass/Vol] 3.6 g/dL 3.2-5.0 [facility] Serum or plasma albumin/glob ulin mass ratioOrdered By: Fortino Logan on 06-02-2023 Albumin/Globulin [Mass ratio] 1.0 {ratio} 0.9-2.4 [facility] Serum or plasma calcium elio urement (mass/volume)Ordered By: Fortino Logan on 06-02-2023 Calcium [Mass/Vol] 9.1 mg/dL 8.5-10.1 [facility] Serum or plasma cholesterol in HDL measurement (mass/volume)Ordered By: Fortino Logan on 06-02-2023 Cholesterol in HDL [Mass/Vol] 56 mg/dL >40 [facility] Comment on above: The drugs N-Acetylcy steine and Metamizole may falsely depress this assay. Reference Range HDL <40 mg/dL Low HDL Cholesterol HDL >or= 60 mg/dL High HDL Cholesterol Serum or plasma cholesterol in VLDL measurement (mass/volume)Ordered By: Fortino Logan on 06-02-2023 Cholesterol in VLDL [Mass/Vol] 19 mg/dL 5-40 [facility] Serum or plasma creatinine m easurement (mass/volume)Ordered By: Fortino Logan on 06-02-2023 Creatinine [Mass/Vol] 0.78 mg/dL 0.55-1.02 [facility] Comment on above: The validity of the calculated GFR & GFRAA in patients over 70 years has not been determined. Clinical correlation is essential. Serum or plasma low density lipoprotein (LDL) cholesterol measurement (mass/volume)Ordered By: Fortino Logan on 06-02-2023 Cholesterol in LDL [Mass/Vol] 135 mg/dL 0-130 [facility] Serum or plasma urea nitroge n measurement (mass/volume)Ordered By: Fortino Logan on 06-02-2023 Urea nitrogen [Mass/Vol] 7 mg/dL 7-18 [facility] Squamous epithelial cells de tection in urine sediment by light microscopyOrdered By: Fortino Logan on 06-02-2023 Epithelial cells.squamous LM Ql (Urine sed) 0 SEEN /hpf 5-10 [facility] TSH (EXTERNAL)on 06-02-2023 TSH 1.15 IU/ml 0.2 - 5.6 IU/ml [facility] Thin prep Papanicolaou smear with manual screeningOrdered By: Fortino Logan on 06-02-2023 Thin prep Papanicolaou smear with manual screening 10 U/L 15-37 [facility] Thin prep Papanicolaou smear with manual screening 5 5-15 [facility] Urine blood detectionOrdered By: Fortino Logan on 06-02-2023 RBC Ql (U) Negative Negative [facility] RBC Ql (U) 0 SEEN /hpf 0-5 [facility] Urine clarityOrdered By: Haim Logan on 06-02-2023 Clarity (U) Clear Clear [facility] Urine color determinationOrd ered By: Fortino Logan on 06-02-2023 Color (U) Yellow Yellow [facility] Urine glucose detectionOrder ed By: Fortino Logan on 06-02-2023 Glucose Ql (U) Normal mg/dl Normal [facility] Urine leukocyte esterase det ection by dipstickOrdered By: Fortino Logan on 06-02-2023 Leukocyte esterase Test strip Ql (U) 25 /ul Negative [facility] Urine pHOrdered By: Fortino Logan on 06-02-2023 pH (U) 6.5 [pH] 5.0 - 8.0 [facility] Urine sediment bacteria coun t by microscopy (number/high power field)Ordered By: Fortino Logan on 06-02-2023 Bacteria LM.HPF (Urine sed) [#/Area] 0 /[HPF] None Seen [facility] Urine specific gravity measu rementOrdered By: Fortino Logan on 06-02-2023 Specific gravity (U) [Rel density] 1.010 1.002-1.03 0 [facility] Urobilinogen Auto test strip Ql (U)Ordered By: Fortino Logan on 06-02-2023 Urobilinogen Ql (U) Normal mg/dl Normal [facility] VITAMIN D (OUTSIDE)on 2022 VITAMIN D 24 ng/mL Abnormal 31 - 80 ng/mL [facility] Whole blood hemoglobin A1c/t otal hemoglobin ratio (mass fraction)Ordered By: Fortino Logan on 06-02-2023 HbA1c (Bld) [Mass fraction] 5.2 % 3.8-5.6 [facility] Comment on above: Normal < 5.7 % Predi abetic 5.7 - 6.4 % Diabetic >or= 6.5 % Please note range changes. UA DIP, URINE (POC)on 2022 BILIRUBIN UA (POCT) Negative Negative [facility] CLARITY UA (POCT) Clear [facility] COLOR UA (POCT) Yellow [facility] GLUCOSE UA (POCT) Negative Negative mg/dL [facility] HEMOGLOBIN/BLOOD UA (POCT) Negative Negative [facility] KETONE UA (POCT) Negative Negative mg/dL [facility] LEUKOCYTES UA (POCT) Negative Negative [facility] NITRITE UA (POCT) Negative Negative [facility] PH UA (POCT) 6.5 4.5 - 8.0 [facility] Protein Ql (U) Negative Negative mg/dL [facility] SPECIFIC GRAVITY UA (POCT) 1.010 1.005 - 1.030 [facility] UROBILINOGEN UA (POCT) 0.2 E.U./dL Evelyn l E.U./dL [facility] UA DIP, URINE (POC)on 2022 BILIRUBIN UA (POCT) Negative Negative [facility] CLARITY UA (POCT) Clear [facility] COLOR UA (POCT) Yellow [facility] GLUCOSE UA (POCT) Negative Negative mg/dL [facility] HEMOGLOBIN/BLOOD UA (POCT) Negative Negative [facility] KETONE UA (POCT) Negative Negative mg/dL [facility] LEUKOCYTES UA (POCT) Negative Negative [facility] NITRITE UA (POCT) Negative Negative [facility] PH UA (POCT) 7.0 4.5 - 8.0 [facility] Protein Ql (U) Negative Negative mg/dL [facility] SPECIFIC GRAVITY UA (POCT) 1.020 1.005 - 1.030 [facility] UROBILINOGEN UA (POCT) 0.2 E.U./dL Evelyn l E.U./dL [facility] US THYROID/PARATHYROIDon [facility] XR Tibia and Fibula - left A P and Lateralon 06-04-2022 IMPRESSION: No acute osseous abnormality. Can Crimper: CHAYITO Transcribe Date/Time: Jun 04 2022 3:24P Dictated by : RIKY GOMES DO This examination was interpreted and the report reviewed and electronically signed by: RIKY GOMES DO on Jun 04 2022 3:26PM [facility] DIVISION OF RADIOLOGY * * *Final Report* * * DATE OF EXAM: Jun 03 2022 4:32PM WOX [id number] - XR TIBIA FIBULA 2V AP/LAT LT / PROCEDURE REASON: Left leg pain * * * * Physician Interpretation * * * * EXAMINATION: XR TIBIA FIBULA 2V AP/LAT LT PATIENT/TECHNOLOGIST PROVIDED HISTORY: left tib-fib pain after hitting same area on metal several weeks ago. CLINICAL INFORMATION: 52 years old Female with Left leg pain. Pain over lateral fibula. Hx of hitting area on a pice of metal several weeks ago. TECHNIQUE: XR TIBIA FIBULA 2V AP/LAT LT Laterality: LEFT Number of different views (projections): 2 COMPARISON: None RESULT: No fracture. Visualized joint spaces are grossly maintained with small marginal osteophytes. Posterior and plantar calcaneal spurs. DIVISION OF RADIOLOGY Provider, [facility] Chana [facility] - 06/04/2022 * * *Final Report* * * DATE OF EXAM: Jun 03 2022 4:32PM WOX 5265 - XR TIBIA FIBULA 2V AP/LAT LT / PROCEDURE REASON: Left leg pain * * * * Physician Interpretation * * * * EXAMINATION: XR TIBIA FIBULA 2V AP/LAT LT PATIENT/TECHNOLOGIST PROVIDED HISTORY: left tib-fib pain after hitting same area on metal several weeks ago. CLINICAL INFORMATION: 52 years old Female with Left leg pain. Pain over lateral fibula. Hx of hitting area on a pice of metal several weeks ago. TECHNIQUE: XR TIBIA FIBULA 2V AP/LAT LT Laterality: LEFT Number of different views (projections): 2 COMPARISON: None RESULT: No fracture. Visualized joint spaces are grossly maintained with small marginal osteophytes. Posterior and plantar calcaneal spurs. IMPRESSION IMPRESSION: No acute osseous abnormality. Can Crimper: CHAYITO Transcribe Date/Time: Jun 04 2022 3:24P Dictated by : RIKY GOMES DO This examination was interpreted and the report reviewed and electronically signed by: RIKY GOMES DO on Jun 04 2022 3:26PM EST [facility] XR Tibia and Fibula - left A P and LateralOrdered By: Ccf Provider on 06-04-2022 [facility] TSH (EXTERNAL)on 06-03-2022 TSH 0.22 IU/ml Abnormal 0.358 - 3.74 IU/ml [facility] XR Tibia and Fibula - left A P and Lateralon 06-03-2022 Radiology Study observation (narrative) [facility] XR Ankle - left AP and Later al and obliqueon 05-31-2022 IMPRESSION: No acute bony finding. Calcaneal spurs [facility] Crimper[facility] Transcribe Date/Time: May 31 2022 1:11P Dictated by : ADINA CARRANZA MD This examination was interpreted and the report reviewed and electronically signed by: ADINA CARRANZA MD on May 31 2022 1:13PM [facility] DIVISION OF RADIOLOGY * * *Final Report* * * DATE OF EXAM: May 30 2022 10:23AM WOX 5298 - XR ANKLE 3V AP/LAT/OBL LT / PROCEDURE REASON: Acute left ankle pain * * * * Physician Interpretation * * * * Left ankle HISTORY: 52 years old Clinical information: Acute left ankle pain for the last week swelling and aching lateral left ankle into the lower leg no inj TECHNIQUE: Images: XR ANKLE 3V AP/LAT/OBL LT Comparison: None. RESULT: Findings: No fracture or bony destruction. Ankle mortise maintained. There are calcaneal enthesophytes at the origin of the plantar fascia and insertion of the Achilles tendon. DIVISION OF RADIOLOGY Provider, [facility] 05/31/[facility]22 * * *Final Report* * * DATE OF EXAM: May 30 2022 10:23AM WOX 5298 - XR ANKLE 3V AP/LAT/OBL LT / PROCEDURE REASON: Acute left ankle pain * * * * Physician Interpretation * * * * Left ankle HISTORY: 52 years old Clinical information: Acute left ankle pain for the last week swelling and aching lateral left ankle into the lower leg no inj TECHNIQUE: Images: XR ANKLE 3V AP/LAT/OBL LT Comparison: None. RESULT: Findings: No fracture or bony destruction. Ankle mortise maintained. There are calcaneal enthesophytes at the origin of the plantar fascia and insertion of the Achilles tendon. IMPRESSION IMPRESSION: No acute bony finding. Calcaneal spurs Can Crimper: CHAYITO Transcribe Date/Time: May 31 2022 1:11P Dictated by : ADINA CARRANZA MD This examination was interpreted and the report reviewed and electronically signed by: ADINA CARRANZA MD on May 31 2022 1:13PM EST [facility] XR Ankle - left AP and Later al and obliqueOrdered By: Ccf Provider on 05-31-2022 [facility] Absolute lymphocyte counton 05-30-2022 Lymphocytes Auto (Unsp spec) [#/Vol] 2.69 10*3/uL 0.83-4.51 [facility] Work Phone: Automated blood hematocrit ( percentage)on 05-30-2022 Hematocrit (Bld) [Volume fraction] 37.3 % 37-47 [facility] Basophil percentageon 2021 Basophils/100 WBC (Bld) 0.4 % 0-1 [facility] Bilirubin [Mass/Vol] 0.40 mg/dL 0.20-1.00 [facility] Work Phone: Comment on above: For patients on eltr ombopag therapy, use of Dimension [place] TBIL is not recommended. Chloride [Moles/Vol] 101 mmol/L 98-107 [facility] Cholesterol [Mass/Vol] 185 mg/dL <200 Cl [facility] Comment on above: <200 mg/dL Desirable 200-240 mg/dL Borderline >240 mg/dL High Risk Eosinophils/100 WBC (Bld) 1.8 % 0-5 [facility] Glucose [Mass/Vol] 72 mg/dL 74-106 [facility] Neutrophils (Bld) [#/Vol] 6.1 10*3/uL 2.0-7.7 [facility] Work Phone: Neutrophils/100 WBC (Bld) 60.7 % 47-70 [facility] Potassium [Moles/Vol] 3.2 mmol/L 3.5-5.1 [facility] Protein [Mass/Vol] 7.4 g/dL 6.4-8.2 [facility] Sodium [Moles/Vol] 134 mmol/L 136-145 [facility] Triglyceride [Mass/Vol] 98 mg/dL <199 [facility] Comment on above: The drugs N-Acetylcy steine and Metamizole may falsely depress this assay.Serum Triglycerides Reference Interval Normal <150 mg/dL Borderline high 150 - 199 mg/dL High 200 - 499 mg/dL Very High > or = 500 mg/dL WBC (Bld) [#/Vol] 10.1 10*3/uL 4.4-11.0 [facility] Blood erythrocytes count (nu mber/volume)on 05-30-2022 RBC (Bld) [#/Vol] 4.45 10*6/uL 4.2-5.4 [facility] Blood hemoglobin measurement (mass/volume)on 05-30-2022 Hemoglobin (Bld) [Mass/Vol] 12.4 g/dL 12.0-15.0 [facility] Blood lymphocytes/100 leukoc yteson 05-30-2022 Lymphocytes/100 WBC (Bld) 26.6 % 19-41 [facility] Blood monocytes/100 leukocyt eson 05-30-2022 Monocytes/100 WBC (Bld) 10.0 % 0-10 [facility] Blood platelet mean volumeon 05-30-2022 Platelet mean volume (Bld) [Entitic vol] 9.2 fL 6.2-12.0 [facility] Work Phone: CBC W/DIFF/PLT (EXTERNAL LAB ROSARIO)on 05-30-2022 BASO ABSOLUTE [facility] EOS ABSOLUTE [facility] Immature Gran % [facility] IMMATURE GRANS ABSOLUTE [facility] Lymphocytes (Bld) [#/Vol] 2.69 10*3/uL 0.7 - 3.1 k/uL [facility] MCH 27.9 Pg 26.6 - 33 Pg [facility] MONOCYTES ABSOLUTE [facility] NEUTROPHILS ABSOLUTE 6.1 k/uL 1.4 - 7 .0 k/uL [facility] CMP (EXTERNAL)on 05-30-2022 Alk Phos Total 90 U/L 45 - 117 U/L [facility] AST [Catalytic activity/Vol] 16 U/L 8 - 37 U/L [facility] Bili Total 0.4 mg/dL 0.2 - 1 mg/dL [facility] CO2 [Moles/Vol] 27 mmol/L 21 - 32 MEQ/L [facility] GFR AFR AMER [facility] GFR/1.73 sq M.predicted among non-blacks MDRD (S/P/Bld) [Vol rate/Area] 105 mL/min/{1.73_m2} [facility] Determination of erythrocyte mean corpuscular volume (MCV)on 05-30-2022 MCV (RBC) [Entitic vol] 83.8 fL 81-99 [facility] LIPID PANEL (OUTSIDE)on 05-13 LDL:HDL Ratio [facility] Non-HDL Cholesterol [facility] TC:HDL Ratio [facility] VLDL Cholesterol [facility] Laboratory - Chemistry and C hemistry - challengeon 05-30-2022 ALP [Catalytic activity/Vol] 90 U/L 45-117 [facility] Work Phone: ALT [Catalytic activity/Vol] 23 U/L 13-56 [facility] CO2 [Moles/Vol] 27.0 mmol/L 21.0-32.0 [facility] Work Phone: Cobalamin (Vitamin B12) [Mass/Vol] 308 pg/mL 211-911 [facility] Globulin (S) [Mass/Vol] 3.8 g/dL 2.2-4.2 [facility] Work Phone: Magnesium [Mass/Vol] 2.3 mg/dL 1.6-2.6 [facility] Work [facility]: Urea nitrogen/Creatinine [Mass ratio] 9.6 mg/mg 10-20 [facility] Work Phone: Laboratory - Hematology and Cell countson 05-30-2022 Erythrocyte distribution width (RBC) [Entitic vol] 40.8 fL 35.1-43.9 [facility] Work Phone: Erythrocyte distribution width (RBC) [Ratio] 13.4 % 11.6-14.6 [facility] Immature granulocytes/100 WBC (Bld) 0.500 % 0.0-0.9 [facility] Work Phone: Comment on above: IG% - Immature Granu locytes (promyelocytes, myelocytes and metamyelocytes) > 1% indicates that a LEFT SHIFT is Present. MCH (RBC) [Entitic mass] 27.9 pg 27.0-32.0 [facility] Work Phone: Nucleated RBC/100 WBC (Bld) [Ratio] 0 % 0-5 [facility] Work Phone: [phone] MCHC [Mass/volume] by Automa mayco counton 05-30-2022 MCHC (RBC) [Mass/Vol] 33.2 g/dL 32-36 [facility] No Panel Informationon 05-30 Estimated GFR (MDRD) Amer 128 mL/min >60 [facility] Work Phone: Comment on above: GFR Calc Estimated GFR (MDRD) Non-Af Amer 105 mL/min >60 [facility] Work Phone: [phone] Comment on above: Non- GFR Calc Thyroid Stimulating Hormone (TSH) 0.22 uIU/mL 0.358-3.74 [facility] Work Phone: Vitamin D 25-Hydroxy 35.4 ng/mL [facility] Work Phone: Comment on above: Vitamin D 25(OH) Sta tus Range Deficiency <20 ng/mL (50nmol/L) Insufficiency 20 - 30 ng/mL (50 - 75 nmol/L) Sufficiency 30 - 100 ng/mL (75 - 250 nmol/L) Toxicity >100 ng/mL (>250 nmol/L) Platelets bldon 05-30-2022 Platelets (Bld) [#/Vol] 470 10*3/uL 150-450 [facility] Serum or plasma albumin elio urement (mass/volume)on 05-30-2022 Albumin [Mass/Vol] 3.6 g/dL 3.2-5.0 [facility] Serum or plasma albumin/glob ulin mass ratioon 05-30-2022 Albumin/Globulin [Mass ratio] 0.9 {ratio} 0.9-2.4 [facility] Work Phone: Serum or plasma calcium elio urement (mass/volume)on 05-30-2022 Calcium [Mass/Vol] 8.8 mg/dL 8.5-10.1 [facility] Serum or plasma cholesterol in HDL measurement (mass/volume)on 05-30-2022 Cholesterol in HDL [Mass/Vol] 53 mg/dL >40 [facility] Comment on above: The drugs N-Acetylcy steine and Metamizole may falsely depress this assay. Reference Range HDL <40 mg/dL Low HDL Cholesterol HDL >or= 60 mg/dL High HDL Cholesterol Serum or plasma cholesterol in VLDL measurement (mass/volume)on 05-30-2022 Cholesterol in VLDL [Mass/Vol] 20 mg/dL 5-40 [facility] Work Phone: Serum or plasma creatinine m easurement (mass/volume)on 05-30-2022 Creatinine [Mass/Vol] 0.63 mg/dL 0.55-1.02 [facility] Comment on above: The validity of the calculated GFR & GFRAA in patients over 70 years has not been determined. Clinical correlation is essential. Serum or plasma low density lipoprotein (LDL) cholesterol measurement (mass/volume)on 05-30-2022 Cholesterol in LDL [Mass/Vol] 112 mg/dL 0-130 [facility] Serum or plasma urea nitroge n measurement (mass/volume)on 05-30-2022 Urea nitrogen [Mass/Vol] 6 mg/dL - [facility] Thin prep Papanicolaou smear with manual screeningon 05-30-2022 Thin prep Papanicolaou smear with manual screening 16 U/L 15-37 [facility] Work Phone: Thin prep Papanicolaou smear with manual screening 6 5-15 [facility] Work Phone: VITAMIN D (OUTSIDE)on 2021 VITAMIN D 35.4 ng/mL 31 - 80 ng/mL [facility] Whole blood hemoglobin A1c/t otal hemoglobin ratio (mass fraction)on 05-30-2022 HbA1c (Bld) [Mass fraction] 5.5 % 3.8-5.6 [facility] Comment on above: Normal < 5.7 % Predi abetic 5.7 - 6.4 % Diabetic >or= 6.5 % Please note range changes. XR Ankle - left AP and Later al and obliqueon 05-30-2022 Radiology Study observation (narrative) [facility] CNOVon 05-16-2022 CNOV Office Visit (AGGENS 4) ----- BRENDA VILLALOBOS ([id number]) 1970 F Date Time Provider Department 05/16/22 11:30 AM ALEXIA GRESHAM4 During your visit today, we recorded the following information about you: Pulse Blood pressure Weight Height 93/minute 125/78 65.8 kg 1.575 m Alexia Gresham MD 05/16/2022 11:52 AM Signed SURGICAL SERVICES HISTORY AND PHYSICAL EXAMINATION SERVICE DATE: 05/16/2022 SERVICE TIME: 11:37 AM PRIMARY CARE PHYSICIAN: Fortino Logan MD SUBJECTIVE CHIEF COMPLAINT: reflux HISTORY OF PRESENT ILLNESS: Ms. Villalobos is a 52 year old female with a PMH of hypothyroidism (synthroid), COPD with asthma (well-controlled; rare use of rescue inhalor), HLD, endometriosis (s/p JEFFREY), spastic bladder, tobacco abuse, and GERD with esophagitis who presents for follow up after GERD evaluation. I last saw her in clinic on 10/02/21 at which time she stated medical management was not working for her and she wished to pursue surgical intervention. However, she was still smoking at that time and we discussed the need for smoking cessation prior to this visit. I had ordered a nicotine test, but that has not yet been completed. At the last visit she had cut down to 1/2 ppd. Today she reports she is down to 5 cigarettes. She tried using CBD gummies to help her stop smoking, but these made her GERD symptoms worse. She believes her symptoms of GERD are slowly worsening. Symptoms are not worse at any particular time of the day. She also tried vinegar pills, which did not help. Per my previous notes: Work-up: - UGI: moderate volume of reflux to the mid esophageal level - EGD: patulous GE junction with Hill grade 2 GEJ - Path: Mild chronic gastritis. ?The Helicobacter pylori pattern of inflammation is not identified - Rodriguez: DeMeester 28.6; 100% SAP for regurgitation ? Please see my past clinic note from 08/07/21 for her full history: She endorses a long history of GERD symptoms which began back prior to 2015. She has been on Nexium since that time. Then in April she experienced worsening of GERD after starting Cataflam in April. Since then her symptoms have worsened drastically and she was started on Carafate. She stopping the Cataflam, but symptoms have continued. She is now on high dose Nexium of 40 mg BID and continues with severe nocturnal and day time symptoms. She denies dysphagia. She denies unexplained weight loss. She does endorse cough, which she believes is associated with her history of COPD and asthma. Once per week she experience severe acid regurgitation. She also has epigastric soreness and LUQ pain. ? Workup: - EGD (03/13/2020): no abnormalities. - EGD (05/2016): gastritis, non-severe reflux esophagitis - Pathology WNL ? Social: smokes 1 ppd since the age of of 11 (38 years); denies use of etoh or marijuana or other drug use. She works in [employer] - and is very active at work ? PSHx: JEFFREY (open) PAST MEDICAL HISTORY: PAST MEDICAL HISTORY Diagnosis Date - Acquired hypothyroidism 04/25/2015 US 10/2017 showed enlarged right lobe but no nodules - Allergic rhinitis 09/03/2013 - ALEXYS III (cervical intraepithelial neoplasia grade III) with severe dysplasia - Constipation 08/23/2015 - COPD with asthma (HCC) - Dyslipidemia 04/22/2018 - Elevated fasting blood sugar 04/18/2017 - Endometriosis, site unspecified Endometriosis - MURIEL (generalized anxiety disorder) 05/18/2021 - Gastric hyperplasia 10/18/2016 - Gastro-esophageal reflux disease with esophagitis 10/18/2016 Patient with EGD proven esophagitis and gastric hyperplasia. Has been on omeprazole, pantoprazole and prevacid with no relief of symptoms. Nexium has been helpful and dexalant - Insomnia 04/12/2014 - OA (osteoarthrosis) 05/18/2021 - Post-menopausal - Situational depression 04/19/2020 - Smoker 08/12/2013 Started at the age of 11 up to 1.5 PPD - Spastic bladder 10/23/2018 - Varicose veins of bilateral lower extremities with other complications 04/19/2020 bleeding at times - Vitamin B12 deficiency 10/25/2020 - Vitamin D deficiency - Well adult exam 04/17/2016 last done: 04/19/20 PAST SURGICAL HISTORY: PAST SURGICAL HISTORY Procedure Laterality Date - 48 HOUR PH STUDY 09/13/2021 Demeester score-28.6; Dr. Gresham - EGD TRANSORAL BIOPSY SINGLE/MULTIPLE 05/27/2016 - EGD WITH BIOPSY(S) 09/13/2021 Dr. Gresham - ESOPHAGOGASTRODUODENOSCOP Y TRANSORAL DIAGNOSTIC 03/16/2020 - OFFICE LEEP 2001 - TOTAL ABDOMINAL HYSTERECT W/WO RMVL TUBE OVARY Bilateral 2002 bso FAMILY HISTORY: FAMILY HISTORY Problem Relation Age of Onset - COPD Mother - Heart Mother - Thyroid Mother - Hypertension Mother - Kidney Disease Mother Kidney failure - Asthma Mother - Breast Cancer Mother - Thyroid Daughter - Seizures Brother - Diabetes Son Type 1 - Hypertension Son - Asthma Son - C (more content not included)... Normal [facility] CNPNon 02-21-2022 CNPN Telephone (AGGENS4) ----- FARABRENDA LEMON ([id number]) 1970 F Date Time Provider Department 02/21/22 ALEXIA GRESHAM During your visit today, we recorded the following information about you: Shanae Nguyen RN 02/21/2022 4:53 PM Signed I called patient and left a message asking whether patient had quit smoking and completed her urine nicotine test. I requested a call back and left my contact information. Shanae Nguyen RN Allergies As of Date: 02/21/2022 Noted Allergy Reaction MEDROL DOSE PACK (METHYLPREDNISOL*02/01/20 17 7 - Swelling Comments: Swelling of throat BACTRIM (SULFAMETHOXAZOLE) 08/12/2013 9 - Itching MORPHINE 08/12/2013 9 - Itching ZOLOFT (SERTRALINE) 04/19/2020 14 - Other: See Comments Comments: Chest felt heavy. Date Reviewed: 11/23/2021 Reviewed by: Fortino Logan MD - Fully Assessed Reason for Visit: Future Appointment [256] Cmt: valentina w/Dr. Gresham 02/27/22 Prescriptions as of 02/21/2022 - levothyroxine (SYNTHROID) 88 mcg tablet Take one tab by mouth daily. - levothyroxine (SYNTHROID) 88 mcg tablet Take one tab by mouth daily. - albuterol (PROVENTIL) 2.5 mg /3 mL (0.083 %) nebulizer solution Use 3 mL via nebulizer every 6 hours as needed for wheezing/shortness of breath. Use over 5-15minutes. - albuterol HFA (PROAIR HFA) 90 mcg/actuation inhaler USE 2 INHALATIONS EVERY 6 HOURS INSTRUCTED NEEDED - esomeprazole (NEXIUM) 40 mg capsule Take 1 capsule by mouth twice daily before meals. - fluticasone-salmeterol HFA (ADVAIR HFA) 230-21 mcg/actuation inhaler Inhale 2 Puffs as instructed twice daily. - hydrOXYzine HCl (ATARAX) 25 mg tablet Take 1-2 tabs by mouth prior to bed as needed for sleep. - tiotropium (SPIRIVA WITH HANDIHALER) 18 mcg inhalation capsule INHALE THE CONTENTS OF 1 CAPSULE DAILY INSTRUCTED. USE WITH HANDIHALER - senna (SENOKOT) 8.6 mg tab Take 1 tablet by mouth twice daily. - FLUoxetine HCl (PROZAC) 40 mg capsule Take 1 capsule by mouth twice daily. - diclofenac potassium (CATAFLAM) 50 mg tablet Take 1 tablet by mouth three times daily. Take with food. - fluticasone (FLONASE) 50 mcg/actuation nasal spray Use 2 Sprays in each nostril once daily. Rinse mouth after use. - Cholecalciferol, Vitamin D3, 50 mcg (2,000 unit) cap Take 1 capsule by mouth once daily. - cyclobenzaprine (FLEXERIL) 5 mg tablet Take 1 tablet by mouth three times daily. - cyanocobalamin (VITAMIN B-12) 1,000 mcg tab Take 1 tablet by mouth once daily. - ergocalciferol, vitamin D2, (VITAMIN D2 ORAL) Take by mouth. Problem List As Of Date 02/21/2022 Noted Resolved Post-menopausal [Z78.0] COPD with asthma (HCC) [J44.9] Vitamin D deficiency [E55.9] Smoker [F17.200] 08/12/2013 Allergic rhinitis [J30.9] 09/03/2013 Insomnia [G47.00] 04/12/2014 Acquired hypothyroidism [E03.9] 04/25/2015 Constipation [K59.00] 08/23/2015 Encounter for gynecological examination without*04/17/2016 Well adult exam [Z00.00] 04/17/2016 Gastro-esophageal reflux disease with esophagit*10/18/2016 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] 10/18/2016 Encounter for screening for cardiovascular diso*10/18/2016 Encounter for screening for diabetes mellitus [*10/18/2016 Elevated fasting blood sugar [R73.01] 04/18/2017 Encounter for screening mammogram for breast ca*04/22/2018 Dyslipidemia [E78.5] 04/22/2018 Spastic bladder [N32.89] 10/23/2018 Situational depression [F43.21] 04/19/2020 Varicose veins of bilateral lower extremities w*04/19/2020 Medication management [Z79.899] 04/19/2020 Current use of proton pump inhibitor [Z79.899] 04/19/2020 Vitamin B12 deficiency [E53.8] 10/25/2020 MURIEL (generalized anxiety disorder) [F41.1] 05/18/2021 Screening for colon cancer [Z12.11] 05/18/2021 OA (osteoarthrosis) [M19.90] 05/18/2021 Chronic bilateral low back pain with sciatica [*11/19/2021 Encounter Status:Closed by SHANAE NGUYEN on 02/21/22 [facility] CNOVon 10-02-2021 CNOV Office Visit (AGGENS 4) ----- BRENDA VILLALOBOS ([id number]) 1970 F Date Time Provider Department 10/02/21 2:30 PM ALEXIA GRESHAM4 During your visit today, we recorded the following information about you: Pulse Blood pressure Weight Height 76/minute 128/62 65.8 kg 1.575 m Alexia Gresham MD 10/02/2021 3:05 PM Signed SURGICAL SERVICES HISTORY AND PHYSICAL EXAMINATION SERVICE DATE: 10/02/2021 SERVICE TIME: 2:44 PM PRIMARY CARE PHYSICIAN: Fortino Logan MD SUBJECTIVE CHIEF COMPLAINT: reflux HISTORY OF PRESENT ILLNESS: Ms. Villalobos is a 51 year old female with a PMH of hypothyroidism (synthroid), COPD with asthma (well-controlled; rare use of rescue inhalor), HLD, endometriosis (s/p JEFFREY), spastic bladder, and GERD with esophagitis who presents for follow up after recent evaluation of GERD. Today Brenda endorses no change in her health or medications. She continues with severe reflux symptoms. She has cut down to 1/2 pack per day of smoking. She has made dietary modifications and is not eating past 5 pm. Work-up: - UGI: moderate volume of reflux to the mid esophageal level - EGD: patulous GE junction with Hill grade 2 GEJ - Path: Mild chronic gastritis. The Helicobacter pylori pattern of inflammation is not identified - Rodriguez: DeMeester 28.6; 100% SAP for regurgitation Please see my past clinic note from 08/07/21 for her full history: She endorses a long history of GERD symptoms which began back prior to 2015. She has been on Nexium since that time. Then in April she experienced worsening of GERD after starting Cataflam in April. Since then her symptoms have worsened drastically and she was started on Carafate. She stopping the Cataflam, but symptoms have continued. She is now on high dose Nexium of 40 mg BID and continues with severe nocturnal and day time symptoms. She denies dysphagia. She denies unexplained weight loss. She does endorse cough, which she believes is associated with her history of COPD and asthma. Once per week she experience severe acid regurgitation. She also has epigastric soreness and LUQ pain. ? Workup: - EGD (03/13/2020): no abnormalities. - EGD (05/2016): gastritis, non-severe reflux esophagitis - Pathology WNL ? Social: smokes 1 ppd since the age of of 11 (40 years); denies use of etoh or marijuana or other drug use. She works in [employer] - and is very active at work ? PSHx: JEFFREY (open) PAST MEDICAL HISTORY: PAST MEDICAL HISTORY Diagnosis Date - Acquired hypothyroidism 04/25/2015 US 10/2017 showed enlarged right lobe but no nodules - Allergic rhinitis 09/03/2013 - ALEXYS III (cervical intraepithelial neoplasia grade III) with severe dysplasia - Constipation 08/23/2015 - COPD with asthma (HCC) - Dyslipidemia 04/22/2018 - Elevated fasting blood sugar 04/18/2017 - Endometriosis, site unspecified Endometriosis - MURIEL (generalized anxiety disorder) 05/18/2021 - Gastric hyperplasia 10/18/2016 - Gastro-esophageal reflux disease with esophagitis 10/18/2016 Patient with EGD proven esophagitis and gastric hyperplasia. Has been on omeprazole, pantoprazole and prevacid with no relief of symptoms. Nexium has been helpful and dexalant - Insomnia 04/12/2014 - Post-menopausal - Situational depression 04/19/2020 - Smoker 08/12/2013 Started at the age of 11 up to 1.5 PPD - Spastic bladder 10/23/2018 - Varicose veins of bilateral lower extremities with other complications 04/19/2020 bleeding at times - Vitamin B12 deficiency 10/25/2020 - Vitamin D deficiency - Well adult exam 04/17/2016 last done: 04/19/20 PAST SURGICAL HISTORY: PAST SURGICAL HISTORY Procedure Laterality Date - 48 HOUR PH STUDY 09/13/2021 Demeester score-28.6; Dr. Gresham - EGD W/O BRSH SPECIMEN W/BX 05/27/2016 - EGD W/O OR W/BRUSH/WASH 03/16/2020 - EGD WITH BIOPSY(S) 09/13/2021 Dr. Gresham - OFFICE LEEP 2001 - TOTAL ABDOM HYSTERECTOMY Bilateral 2002 bso FAMILY HISTORY: FAMILY HISTORY Problem Relation Age of Onset - COPD Mother - Heart Mother - Thyroid Mother - Hypertension Mother - Kidney Disease Mother Kidney failure - Asthma Mother - Breast Cancer Mother - Thyroid Daughter - Seizures Brother - Diabetes Son Type 1 - Hypertension Son - Asthma Son - Coronary Artery Disease Maternal Grandmother - Alzheimer's Disease Paternal Uncle - Prostate Cancer Paternal Uncle - Ovarian cancer No Family History - Colon Cancer No Family History - Hyperlipidemia No Family History - Stroke No Family History SOCIAL HISTORY: Social History Tobacco Use - Smoking status: Current Every Day Smoker Packs/day: 0.50 Years: 40.00 Pack years: 20.00 Types: Cigarettes Start date: 1981 - Smokeless tobacco: Never Used - Tobacco comment: Both parents smoked in childhood home. 1st AM cigarette within 5 minutes of waking up. 01/30/16. (more content not included)... Normal [facility] ANES POSTPROC EVALon 021 ANES POSTPROC EVAL HNO ID: [id number] Author: Nick Martinez MD Service: Anesthesiology Author Type: Physician Type: Anesthesia Postprocedure Evaluation Filed: 09/13/2021 3:32 PM Note Text: POST ANESTHESIA EVALUATION NOTE : 1970 Procedure Summary Date: 09/13/21 Room / Location: [facility] [place] [facility] Anesthesia Start: 1300 Anesthesia Stop: 1331 Procedures: EGD (Left Esophagus) ESOPHAGEAL ACID REFLUX TEST W/MUCOSAL ATTACHED TELEMETRY PH ELECTRODE PLACEMENT RECORDING, ANALYSIS, AND INTERPRETATION [] (N/A Esophagus) EGD WITH BIOPSY (Left Esophagus) Diagnosis: Gastroesophageal reflux disease, unspecified whether esophagitis present Surgeons: Alexia Gresham MD Responsible Provider: Nick Martinez MD Anesthesia Type: MAC ASA Status: 2 Anesthesia Type: MAC Last vitals Vitals Value Taken Time BP 113/70 09/13/21 1354 Temp 36.8 ?C (98.2 ?F) 09/13/21 1354 Pulse 77 09/13/21 1354 Resp 16 09/13/21 1354 SpO2 100 % 09/13/21 1354 Post Anesthesia Patient Status Neurological Status: aware and responsive. Pulmonary Status: breathing comfortably on supplemental oxygen Airway Control: returned to baseline unsupported. Cardiovascular Status: stable. Pain Management: clinically adequate Postoperative Hydration: acceptable. Intraoperative Events: no significant anesthesia events Post Operative Nausea/Vomiting Status: no significant post operative nausea or vomiting Anesthetic Observations: Recommendation: continue current plan of care. Anesthesia Observations No Documentation SIGNATURE: Nick Martinez MD PATIENT NAME: Brenda Villalobos DATE: September 13, 2021 TIME: 3:32 PM CSN: [id number] [facility] ANES PRE-OPon 09-13-2021 ANES PRE-OP HNO ID: [id number] Author: Nick Martinez MD Service: Anesthesiology Author Type: Physician Type: Anesthesia Preprocedure Evaluation Filed: 09/13/2021 12:01 PM Note Text: ANESTHESIOLOGY DAY OF SURGERY NOTE : 1970 Procedure(s) (LRB): EGD (Left) ESOPHAGEAL ACID REFLUX TEST W/MUCOSAL ATTACHED TELEMETRY PH ELECTRODE PLACEMENT RECORDING, ANALYSIS, AND INTERPRETATION [] (N/A) Surgeon(s): Alexia Gresham MD Estimated body mass index is 26.12 kg/m? as calculated from the following: Height as of 08/07/21: 157.5 cm (5' 2). Weight as of 08/20/21: 64.8 kg (142 lb 12.8 oz). Most recent hematocrit and potassium results: HCT 35.8 10/16/2020 K 3.7 11/24/2019 Relevant Problems CARDIO (+) Varicose veins of bilateral lower extremities with other complications ENDO (+) Acquired hypothyroidism PULMONARY (+) COPD with asthma (HCC) I - PHYSICAL EVALUATION AIRWAY Patient intubated: No. Tracheostomy tube not present Mallampati: II. TM distance: >3 FB. Neck ROM: full ROM without neurological symptoms. Mouth opening: adequate. Short neck: no. Thick neck: no DENTAL Dentures, upper: complete. Dentures, lower: complete. Additional exam findings: no II - ANESTHESIA PLAN ASA Score: 2 Anesthetic Plan: MAC Monitoring plan: standard ASA. Postoperative analgesic plan: parenteral or oral opioids. Anesthetic Risks, Benefits, Alternatives, Personnel Discussed. Consent obtained from: patient.Patient / Surrogate agrees to blood products: blood products not planned Significant changes in the patient condition since the History and Physical, not otherwise documented in primary service progress note: no. Potential Anesthesia issues that may suggest increased risk of complications or contraindication to planned procedure: none. No vitals data found for the desired time range. Facility-Administered Medications as of 09/13/2021 Medication Dose Route Frequency - lidocaine 10 mg/mL (1 %) 1-2 mg injection (XYLOCAINE) 0.1-0.2 mL INTRADERMAL PRN - lactated ringers iv infusion 5-30 mL/hr INTRAVENOUS CONTINUOUS Outpatient Medications as of 09/13/2021 Medication Sig - [] sucralfate (CARAFATE) 1 gram tablet Take 1 tablet by mouth four times daily. - sucralfate (CARAFATE) 1 gram tablet Take one tab before lunch and before bed. - FLUoxetine HCl (PROZAC) 40 mg capsule Take 1 capsule by mouth twice daily. - diclofenac potassium (CATAFLAM) 50 mg tablet Take 1 tablet by mouth three times daily. Take with food. - fluticasone-salmeterol HFA (ADVAIR HFA) 230-21 mcg/actuation inhaler Inhale 2 Puffs as instructed twice daily. - levothyroxine (SYNTHROID) 88 mcg tablet Take one tab by mouth daily. - hydrOXYzine HCl (ATARAX) 25 mg tablet Take 1-2 tabs by mouth prior to bed as needed for sleep. - tiotropium (SPIRIVA WITH HANDIHALER) 18 mcg inhalation capsule INHALE THE CONTENTS OF 1 CAPSULE DAILY INSTRUCTED. USE WITH HANDIHALER - albuterol HFA (PROAIR HFA) 90 mcg/actuation inhaler USE 2 INHALATIONS EVERY 6 HOURS INSTRUCTED NEEDED - esomeprazole (NEXIUM) 40 mg capsule Take 1 capsule by mouth twice daily before meals. - albuterol (PROVENTIL) 2.5 mg /3 mL (0.083 %) nebulizer solution Use 3 mL via nebulizer every 6 hours as needed for wheezing/shortness of breath. Use over 5-15minutes. - fluticasone (FLONASE) 50 mcg/actuation nasal spray Use 2 Sprays in each nostril once daily. Rinse mouth after use. - senna (SENOKOT) 8.6 mg tab Take 1 tablet by mouth twice daily. - cyanocobalamin (VITAMIN B-12) 1,000 mcg tab Take 1 tablet by mouth once daily. - ergocalciferol, vitamin D2, (VITAMIN D2 ORAL) Take by mouth. (Patient not taking: Reported on 08/07/2021 ) I have interviewed and examined the patient. I have reviewed the medical record and/or the pre-anesthesia evaluation, pertinent labs, and test results. This contains updated information obtained within 48 hours of Surgery/Procedure. SIGNATURE: Nick Martinez MD PATIENT NAME: Brenda Villalobos DATE: September 13, 2021 TIME: 12:00 PM CSN: [id number] Normal [facility] HISTORY PHYSICALon HISTORY PHYSICAL HNO ID: [id number] Author: Coral Piper APRN.RN RECRUITMENT Service: ? Author Type: Nurse Practitioner Type: HANDP Filed: 09/13/2021 12:43 PM Note Text: HISTORY AND PHYSICAL EXAMINATION SERVICE DATE: 09/13/2021 SERVICE TIME: 8:56 AM Brenda Bustamante Faradione [id number] PRIMARY CARE PHYSICIAN: Fortino Logan MD SURGEON: Surgeon(s) and Role: * Alexia Gresham MD - Primary ANESTHESIA: Monitored Anesthesia Care DIAGNOSIS: Gastroesophageal reflux disease, unspecified whether esophagitis present [K21.9] PROCEDURE: Procedure(s): EGD (Left) ESOPHAGEAL ACID REFLUX TEST W/MUCOSAL ATTACHED TELEMETRY PH ELECTRODE PLACEMENT RECORDING, ANALYSIS, AND INTERPRETATION [] (N/A) Subjective CHIEF COMPLAINT: Gastroesophageal reflux disease, unspecified whether esophagitis present [K21.9] HPI: Patient presents to [facility] for the above procedure. Patient has a h/o GERD, which she is on Nexium and Carafate for symptom management. Most recent EGD was 03/2019. Patient reports that it showed some irratation and was started on Carafate at that time. Reports that she has constant reflux, occasional nausea, and gags on bile reflux. Patient denies any V/D or constipation. Denies any abdominal pain or any blood with BMs. Patient denies any other problems at this time. Denies any family history of Colon cancer or other Gastric CA. Patient agreed to planned procedure. PAST MEDICAL HISTORY Diagnosis Date - Acquired hypothyroidism 04/25/2015 US 10/2017 showed enlarged right lobe but no nodules - Allergic rhinitis 09/03/2013 - ALEXYS III (cervical intraepithelial neoplasia grade III) with severe dysplasia - Constipation 08/23/2015 - COPD with asthma (HCC) - Dyslipidemia 04/22/2018 - Elevated fasting blood sugar 04/18/2017 - Endometriosis, site unspecified Endometriosis - MURIEL (generalized anxiety disorder) 05/18/2021 - Gastric hyperplasia 10/18/2016 - Gastro-esophageal reflux disease with esophagitis 10/18/2016 Patient with EGD proven esophagitis and gastric hyperplasia. Has been on omeprazole, pantoprazole and prevacid with no relief of symptoms. Nexium has been helpful and dexalant - Insomnia 04/12/2014 - Post-menopausal - Situational depression 04/19/2020 - Smoker 08/12/2013 Started at the age of 11 up to 1.5 PPD - Spastic bladder 10/23/2018 - Varicose veins of bilateral lower extremities with other complications 04/19/2020 bleeding at times - Vitamin B12 deficiency 10/25/2020 - Vitamin D deficiency - Well adult exam 04/17/2016 last done: 04/19/20 PAST SURGICAL HISTORY Procedure Laterality Date - EGD W/O BRSH SPECIMEN W/BX 05/27/2016 - EGD W/O OR W/BRUSH/WASH 03/16/2020 EGD - OFFICE LEEP 2001 - TOTAL ABDOM HYSTERECTOMY 2002 jeffrey bso FAMILY HISTORY Problem Relation Age of Onset - COPD Mother - Heart Mother - Thyroid Mother - Hypertension Mother - Kidney Disease Mother Kidney failure - Asthma Mother - Breast Cancer Mother - Thyroid Daughter - Seizures Brother - Diabetes Son Type 1 - Hypertension Son - Asthma Son - Coronary Artery Disease Maternal Grandmother - Alzheimer's Disease Paternal Uncle - Prostate Cancer Paternal Uncle - Ovarian cancer No Family History - Colon Cancer No Family History - Hyperlipidemia No Family History - Stroke No Family History Social History Tobacco Use - Smoking status: Current Every Day Smoker Packs/day: 0.50 Years: 40.00 Pack years: 20.00 Types: Cigarettes Start date: 1981 - Smokeless tobacco: Never Used - Tobacco comment: Both parents smoked in childhood home. 1st AM cigarette within 5 minutes of waking up. 01/30/16. TO Vaping Use - Vaping Use: Never used Substance Use Topics - Alcohol use: No - Drug use: No Prior to Admission medications as of 09/13/21 1211 Medication Sig Last Dose Taking sucralfate (CARAFATE) 1 gram tablet Take one tab before lunch and before bed. 09/12/2021 at Unknown time Yes FLUoxetine HCl (PROZAC) 40 mg capsule Take 1 capsule by mouth twice daily. 09/13/2021 at 0945 Yes fluticasone-salmeterol HFA (ADVAIR HFA) 230-21 mcg/actuation inhaler Inhale 2 Puffs as instructed twice daily. 09/13/2021 at 0945 Yes levothyroxine (SYNTHROID) 88 mcg tablet Take one tab by mouth daily. 09/13/2021 at 0945 Yes hydrOXYzine HCl (ATARAX) 25 mg tablet Take 1-2 tabs by mouth prior to bed as needed for sleep. 09/12/2021 at 2230 Yes esomeprazole (NEXIUM) 40 mg capsule Take 1 capsule by mouth twice daily before meals. Past Week at Unknown time Yes albuterol (PROVENTIL) 2.5 mg /3 mL (0.083 %) nebulizer solution Use 3 mL via nebulizer every 6 hours as needed for wheezing/shortness of breath. Use over 5-15minutes. 09/12/2021 at 2000 Yes fluticasone (FLONASE) 50 mcg/actuation nasal spray Use 2 Sprays in each nostril once daily. Rinse mouth after use. Past Week at Unknown time Yes senna (SENOKOT) 8.6 mg tab Take 1 tablet by mouth twice daily. 09/12/2021 at 2100 Yes diclofena (more content not included)... Normal [facility] OPERATIVE NOon 09-13-2021 OPERATIVE NO HNO ID: [id number] Author: Alexia Gresham MD Service: General Surgery Author Type: Physician Type: Operative Report Filed: 09/13/2021 1:30 PM Note Text: OPERATIVE/PROCEDURE REPORT LOG ID: [id number] Surgery/Procedure Date: 09/13/2021 Incision/Procedure Start Time: 1:14 PM Incision Close/Procedure End Time: 1:23 PM Surgeon(s)/Proceduralist( s) and Environmental Field Services Technician(s): Surgeon(s) and Role: * Alexia Gresham MD - Primary No Additional Staff PREOPERATIVE DIAGNOSIS: 1. Gastroesophageal reflux disease. POSTOPERATIVE DIAGNOSIS: 1. Gastroesophageal reflux disease. 2. Patulous GE junction with HG 2 COMPLICATIONS: None. Procedure(s): 1. Esophagogastroduodenoscop y (EGD) with cold forceps biopsies of the gastric antrum 2. Successful Rodriguez pH probe insertion Anesthesia: Monitored Anesthesia Care MAC by Anesthesiology without complications Operative Findings: Diagnostic EGD demonstrated a patulous GE junction Operative Indication: Brenda Villalobos is a 51 year old female who presents for EGD and Rodriguez pH probe placement. We discussed the risks, benefits, alternatives, and potential complications, and the patient agreed to proceed. Procedure Details: Endoscopic procedure: The patient was brought to the endoscopic suite in stable condition. The preprocedural checklist was completed to the satisfaction of the entire team and verified with the patient. We had previously completed the consent process after discussing the risks and benefits of the procedure, which included, but were not limited to, the risk of hemorrhage, need for blood transfusion, and the possibility of perforation. Once she was induced by Anesthesia and appropriately sedated, the Olympus gastroscope was entered through the mouth. I was easily able to intubate the esophagus. The esophageal portion of the examination was positive for a slightly tortuous esophagus but, otherwise, was within normal limits. The Z-line was measured at 37 centimeters from the bite protector as was the diaphragmatic pinch. I then entered the stomach. I did retroflex the scope, which showed a normal appearing GE junction and fundus from that angle. Retroflex view showed a Hill grade 2 GEJ. I then intubated the pylorus into the duodenal bulb, examining both the anterior and posterior portions of the duodenal bulb and then into the second portion of the duodenum. That part of the procedure was within normal limits. Once back in the stomach, I then performed 4 separate cold forceps biopsies in the gastric antrum to be sent for H.pylori. This was done with minimal bleeding. I ensured we had good hemostasis. Gastric insufflation was removed using suction. The gastroscope was removed through the mouth. I then had my real estate assistant adina a Rodriguez pH capsule insertion catheter 6 centimeters above 37, which placed us at 31 centimeters from the bite protector. Lubricant was placed on the probe device, avoiding placing lubrication on the actual implantable Rodriguez pH probe. The probe was inserted with the probe side facing the tongue. There was no resistance. To verify placement into the esophagus, the endoscope was again introduced into the esophagus and esophageal placement was verified. The endoscope was then removed. Once we had the desired marking, suction was then turned on. Once we had our appropriate pressure, we then waited full 30 seconds with the patient being still. I then engaged the insertion catheter. The probe catheter insertion device was then removed with no resistance. I then went back and endoscopically confirmed esophageal placement. This was confirmed with a picture. Insufflation was then removed and the gastroscope removed through the mouth. The patient tolerated the procedure very well and was returned to recovery room in stable condition. Recommendations: follow up in clinic. Stop smoking Estimated Blood Loss: minimal Specimens: 1. Gastric antrum Implantable Devices: Rodriguez pH probe Drains: None Complications: None I performed the procedure independently. SIGNATURE: Alexia Gresham MD PATIENT NAME: Brenda Villalobos DATE: September 13, 2021 TIME: 1:26 PM PAGER/CONTACT #: [facility] SURGICAL PATHOLOGYon CASE REPORT Normal [facility] Comment on above: Order Comment: Speci men Type: TISSUE SPECIMEN Result Comment: Surg ica Pathology Report Case: [id number] Authorizing Provider: Alexia Gresham MD Collected: 09/13/2021 01:31 PM Ordering Location: [facility] Received: 09/14/2021 10:54 AM Pathologist: Jyoti Hardy MD Specimen: ANTRUM (STOMACH) BIOPSY Performed By: #### S ####[facility]ORY[facility]IA [id number] [place] [address] [place] FINAL DIAGNOSIS Normal [facility] Comment on above: Order Comment: Speci men Type: TISSUE SPECIMEN Result Comment: Lucina astrid biopsy (antrum) - Mild chronic gastritis. The Helicobacter pylori pattern of inflammation is not identified. Performed By: #### S ####[facility] [id number] [address] FINAL PERFORMING LAB Normal [facility] Comment on above: Order Comment: Speci men Type: TISSUE SPECIMEN Result Comment: Diag nostic interpretation performed at [facility], [address] [place] [address] CLIA# [id number] Stitcher Operator: Juan Paulson M.D. Performed By: #### S ####[facility]ORYCLIA [id number] [address] GROSS DESCRIPTION Normal [facility] Comment on above: Order Comment: Speci men Type: TISSUE SPECIMEN Result Comment: A. A NTRUM (STOMACH) BIOPSY. A. Received in formalin labeled antrum biopsy are 2 irregular ramirez soft tissue fragments aggregating to 0.6 x 0.4 x 0.3 cm. The specimen is submitted entirely in cassette A1. Gross examination performed at [facility], [address] [place] [address] OLS September 14, 2021 1:11 PM Performed By: #### S ####[facility] [id number] [address] XR UPPER GI DOUBLE CONTRAST/ AIRon 09-05-2021 XR UPPER GI DOUBLE CONTRAST/AIR * * *Final Report* * * DATE OF EXAM: Sep 05 2021 2:00PM [id number] [id number] - XR UPPER GI DOUBLE CONTRAST/AIR / PROCEDURE REASON: Gastroesophageal reflux disease, unspecified whether esophagitis present * * * * Physician Interpretation * * * * UPPER GI DOUBLE CONTRAST/AIR HISTORY: Indication: Gastroesophageal reflux disease, unspecified whether esophagitis present TECHNIQUE: Views obtained: XR UPPER GI DOUBLE CONTRAST/AIR. Study was performed by the radiology receptionist. 1 minute of fluoroscopic time, 38 total acquisitions and 297 cc of barium. Comparison: NONE. RESULT: Barium passed through the esophagus into the stomach without obstruction antegrade flow. No evidence of stricture or mucosal destruction. Stomach was filled to a normal contour without evidence of abnormal filling defect. Moderate volume of reflux to the mid esophageal level. No active ulcer crater. Duodenal bulb and sweep appear normal. IMPRESSION: Moderate volume of reflux to the mid esophageal level. Can Crimper: CHAYITO Transcribe Date/Time: Sep 05 2021 2:31P Dictated by : JAMILA REYNOLDS MD This examination was interpreted and the report reviewed and electronically signed by: JAMILA REYNOLDS MD on Sep 05 2021 2:40PM EST [id number] Normal [facility] XR Foot - right AP and Later al and obliqueon 08-20-2021 IMPRESSION: No acute osseous abnormality. Can Crimper: [facility] Transcribe Date/Time: Aug 20 2021 12:14P Dictated by : BAILEY BERNARDO MD This examination was interpreted and the report reviewed and electronically signed by: BAILEY BERNARDO MD on Aug 20 2021 12:20PM EST DIVISION OF RADIOLOGY * * *Final Report* * * DATE OF EXAM: Aug 20 2021 12:07PM WOX [id number] - XR FOOT 3V AP/LAT/OBL RT / PROCEDURE REASON: Foot pain, right * * * * Physician Interpretation * * * * EXAMINATION / TECHNIQUE: XR FOOT 3V AP/LAT/OBL RT PATIENT/TECHNOLOGIST PROVIDED HISTORY: fell last week pain in forefoot distal 5th MT CLINICAL INFORMATION ( PROVIDED BY ORDERING CLINICIAN) : Foot pain, right COMPARISON: None RESULT: No acute fracture or dislocation. Mild to moderate degenerative changes of the great toe MTP joint. Prominent dorsal spurring of the navicular bone. Small plantar and Achilles enthesophytes. No significant ankle joint effusion. DIVISION OF RADIOLOGY Provider, [facility] - 08/20/2021 * * *Final Report* * * DATE OF EXAM: Aug 20 2021 12:07PM WOX [id number] - XR FOOT 3V AP/LAT/OBL RT / PROCEDURE REASON: Foot pain, right * * * * Physician Interpretation * * * * EXAMINATION / TECHNIQUE: XR FOOT 3V AP/LAT/OBL RT PATIENT/TECHNOLOGIST PROVIDED HISTORY: fell last week pain in forefoot distal 5th MT CLINICAL INFORMATION ( PROVIDED BY ORDERING CLINICIAN) : Foot pain, right COMPARISON: None RESULT: No acute fracture or dislocation. Mild to moderate degenerative changes of the great toe MTP joint. Prominent dorsal spurring of the navicular bone. Small plantar and Achilles enthesophytes. No significant ankle joint effusion. IMPRESSION IMPRESSION: No acute osseous abnormality. Can Crimper: CHAYITO Transcribe Date/Time: Aug 20 2021 12:14P Dictated by : BAILEY BERNARDO MD This examination was interpreted and the report reviewed and electronically signed by: BAILEY BERNARDO MD on Aug 20 2021 12:20PM [facility] Radiology Study observation (narrative) [facility] XR Foot - right AP and Later al and obliqueOrdered By: [facility] Provider on 08-20-2021 [facility] CNOVon 08-07-2021 CNOV Office Visit (AGGENS 4) ----- BRENDA VILLALOBOS ([id number]) 1970 F Date Time Provider Department 08/07/21 10:00 AM ALEXIA GRESHAM4 During your visit today, we recorded the following information about you: Pulse Blood pressure Weight Height 69/minute 123/80 66 kg 1.575 m Alexia Gresham MD 08/07/2021 10:39 AM Signed SURGICAL SERVICES HISTORY AND PHYSICAL EXAMINATION SERVICE DATE: 08/07/2021 SERVICE TIME: 10:13 AM PRIMARY CARE PHYSICIAN: Fortino Logan MD SUBJECTIVE CHIEF COMPLAINT: GERD HISTORY OF PRESENT ILLNESS: Ms. Villalobos is a 51 year old female with a PMH of hypothyroidism (synthroid), COPD with asthma (well-controlled; rare use of rescue inhalor), HLD, endometriosis (s/p JEFFREY), spastic bladder, and GERD with esophagitis who presents for evaluation of GERD. She endorses a long history of GERD symptoms which began back prior to 2015. She has been on Nexium since that time. Then in April she experienced worsening of GERD after starting Cataflam in April. Since then her symptoms have worsened drastically and she was started on Carafate. She stopping the Cataflam, but symptoms have continued. She is now on high dose Nexium of 40 mg BID and continues with severe nocturnal and day time symptoms. She denies dysphagia. She denies unexplained weight loss. She does endorse cough, which she believes is associated with her history of COPD and asthma. Once per week she experience severe acid regurgitation. She also has epigastric soreness and LUQ pain. Workup: - EGD (03/13/2020): no abnormalities. - EGD (05/2016): gastritis, non-severe reflux esophagitis - Pathology WNL Social: smokes 1 ppd since the age of of 11 (40 years); denies use of etoh or marijuana or other drug use. She works in [employer] - and is very active at work PSHx: JEFFREY (open) PAST MEDICAL HISTORY: PAST MEDICAL HISTORY Diagnosis Date - Acquired hypothyroidism 04/25/2015 US 10/2017 showed enlarged right lobe but no nodules - Allergic rhinitis 09/03/2013 - ALEXYS III (cervical intraepithelial neoplasia grade III) with severe dysplasia - Constipation 08/23/2015 - COPD with asthma (HCC) - Dyslipidemia 04/22/2018 - Elevated fasting blood sugar 04/18/2017 - Endometriosis, site unspecified Endometriosis - MURIEL (generalized anxiety disorder) 05/18/2021 - Gastric hyperplasia 10/18/2016 - Gastro-esophageal reflux disease with esophagitis 10/18/2016 Patient with EGD proven esophagitis and gastric hyperplasia. Has been on omeprazole, pantoprazole and prevacid with no relief of symptoms. Nexium has been helpful and dexalant - Insomnia 04/12/2014 - Post-menopausal - Situational depression 04/19/2020 - Smoker 08/12/2013 - Smoker 08/12/2013 Started at the age of 11 up to 1.5 PPD - Spastic bladder 10/23/2018 - Spastic bladder 10/23/2018 - Varicose veins of bilateral lower extremities with other complications 04/19/2020 bleeding at times - Vitamin B12 deficiency 10/25/2020 - Vitamin D deficiency - Well adult exam 04/17/2016 last done: 04/19/20 PAST SURGICAL HISTORY: PAST SURGICAL HISTORY Procedure Laterality Date - EGD W/O BRSH SPECIMEN W/BX 05/27/2016 - EGD W/O OR W/BRUSH/WASH 03/16/2020 EGD - OFFICE LEEP 2002 - TOTAL ABDOM HYSTERECTOMY 2002 jeffrey bso FAMILY HISTORY: FAMILY HISTORY Problem Relation Age of Onset - COPD Mother - Heart Mother - Thyroid Mother - Hypertension Mother - Kidney Disease Mother Kidney failure - Asthma Mother - Breast Cancer Mother - Thyroid Daughter - Seizures Brother - Diabetes Son Type 1 - Hypertension Son - Asthma Son - Coronary Artery Disease Maternal Grandmother - Alzheimer's Disease Paternal Uncle - Prostate Cancer Paternal Uncle - Ovarian cancer No Family History - Colon Cancer No Family History - Hyperlipidemia No Family History - Stroke No Family History SOCIAL HISTORY: Social History Tobacco Use - Smoking status: Current Every Day Smoker Packs/day: 0.50 Years: 30.00 Pack years: 15.00 Types: Cigarettes Start date: 1981 - Smokeless tobacco: Never Used - Tobacco comment: Both parents smoked in childhood home. 1st AM cigarette within 5 minutes of waking up. 01/30/16. TO Substance Use Topics - Alcohol use: No - Drug use: No MEDICATIONS: Current Outpatient Medications Medication Sig - sucralfate (CARAFATE) 1 gram tablet Take one tab before lunch and before bed. - FLUoxetine HCl (PROZAC) 40 mg capsule Take 1 capsule by mouth twice daily. - diclofenac potassium (CATAFLAM) 50 mg tablet Take 1 tablet by mouth three times daily. Take with food. - fluticasone-salmeterol HFA (ADVAIR HFA) 230-21 mcg/actuation inhaler Inhale 2 Puffs as instructed twice daily. - levothyroxine (SYNTHROID) 88 mcg tablet Take one tab by mouth daily. - hydrOXYzine HCl (ATARAX) 25 mg tablet Take 1-2 tabs by mouth prior to bed as needed for sleep. - (more content not included)... Normal [facility] XR Chest PA and Lateralon IMPRESSION: No acute radiographic abnormality. Can Crimper: PSCB Transcribe Date/Time: Apr 08 2021 4:29P Dictated by : BIPIN LOMBARDO MD This examination was interpreted and the report reviewed and electronically signed by: BIPIN LOMBARDO MD on Apr 08 2021 4:30PM [facility] DIVISION OF RADIOLOGY * * *Final Report* * * DATE OF EXAM: Apr 07 2021 10:53AM WOX [id number] - XR CHEST 2V FRONTAL/LAT / PROCEDURE REASON: multiple diagnoses * * * * Physician Interpretation * * * * EXAMINATION: CHEST RADIOGRAPH (2 VIEW FRONTAL & LATERAL) CLINICAL HISTORY: Persistent cough COPD with asthma (HCC) MQ: XC2_6 EXAM DATE/TIME: 04/07/2021 10:53 AM COMPARISON: 08/13/2013 RESULT: Lines, tubes, and devices: None. Lungs and pleura: No consolidation. No lung mass. No pleural effusion. No pneumothorax. Cardiomediastinal silhouette: Normal cardiomediastinal silhouette. Bones and soft tissues: Unremarkable. DIVISION OF RADIOLOGY Provider, [facility] - 04/08/2021 * * *Final Report* * * DATE OF EXAM: Apr 07 2021 10:53AM WOX [id number] - XR CHEST 2V FRONTAL/LAT / PROCEDURE REASON: multiple diagnoses * * * * Physician Interpretation * * * * EXAMINATION: CHEST RADIOGRAPH (2 VIEW FRONTAL & LATERAL) CLINICAL HISTORY: Persistent cough COPD with asthma (HCC) MQ: XC2_6 EXAM DATE/TIME: 04/07/2021 10:53 AM COMPARISON: 08/13/2013 RESULT: Lines, tubes, and devices: None. Lungs and pleura: No consolidation. No lung mass. No pleural effusion. No pneumothorax. Cardiomediastinal silhouette: Normal cardiomediastinal silhouette. Bones and soft tissues: Unremarkable. IMPRESSION IMPRESSION: No acute radiographic abnormality. Can Crimper: CHAYITO Transcribe Date/Time: Apr 08 2021 4:29P Dictated by : BIPIN LOMBARDO MD This examination was interpreted and the report reviewed and electronically signed by: BIPIN LOMBARDO MD on Apr 08 2021 4:30PM [facility] XR Chest PA and LateralOrder ed By: Cc Provider on 04-08-2021 [facility] XR Chest PA and Lateralon Radiology Study observation (narrative) [facility] Vital Signs Date Time Vital Sign Value Performing Clinician Facility 06-07-2025 15:41-0400 Body mass index (BMI) [Ratio] 25.42 kg/m2 Clifford Rhoades DO Work Phone: [facility] 06-07-2025 15:41-0400 Body weight 63.05 kg Clifford Jf DO Work Phone: [facility] 06-07-2025 15:41-0400 Diastolic blood pressure 81 mm[Hg] Clifford Pompaae DO Work Phone: [facility] 06-07-2025 15:41-0400 Heart rate 87 /min Clifford Pompaae DO Work Phone: [facility] 06-07-2025 15:41-0400 SaO2% (BldA) [Mass fraction] 97 % Clifford Pompaae DO Work Phone: [facility] 06-07-2025 15:41-0400 Systolic blood pressure 118 mm[Hg] Clifford Pompaae DO Work Phone: [facility] 05-17-2025 09:36-0400 Diastolic blood pressure 77 mm[Hg] [facility] 05-17-2025 09:36-0400 Heart rate 79 /min [facility] 05-17-2025 09:36-0400 Respiratory rate 19 /min [facility] 05-17-2025 09:36-0400 SaO2% (BldA) [Mass fraction] 96 % [facility] 05-17-2025 09:36-0400 Systolic blood pressure 139 mm[Hg] [facility] 2025 14:15-0400 Body height 157.5 cm Clifford Rhoades DO Work Phone: [facility] 2025 14:15-0400 Body mass index (BMI) [Ratio] 25.42 kg/m2 Clifford Pompaae DO Work Phone: [facility] 2025 14:15-0400 Body weight 63.05 kg Clifford Pompaae DO Work Phone: [facility] 2025 14:15-0400 Diastolic blood pressure 95 mm[Hg] Clifford Pompaae DO Work Phone: [facility] 2025 14:15-0400 Heart rate 94 /min Clifford Rhoades DO Work Phone: [facility] 2025 14:15-0400 SaO2% (BldA) [Mass fraction] 99 % Clifford Rhoades DO Work Phone: [facility] 2025 14:15-0400 Systolic blood pressure 137 mm[Hg] Clifford Rhoades DO Work Phone: [facility] 04-20-2025 13:39-0400 Body mass index (BMI) [Ratio] 24.37 kg/m2 Fortino Logan MD Work Phone: [facility] 04-20-2025 13:39-0400 Body weight 61.42 kg Fortino Logan MD Work Phone: [facility] 04-20-2025 13:39-0400 Diastolic blood pressure 90 mm[Hg] Fortino Logan MD Work Phone: [facility] 04-20-2025 13:39-0400 Heart rate 80 /min Fortino Logan MD Work Phone: [facility] 04-20-2025 13:39-0400 Respiratory rate 20 /min Fortino Logan MD Work Phone: [facility] 04-20-2025 13:39-0400 Systolic blood pressure 136 mm[Hg] Fortino Logan MD Work Phone: [facility] 03-29-2025 15:19-0400 Diastolic blood pressure 86 mm[Hg] Fortino Logan MD Work Phone: [facility] 03-29-2025 15:19-0400 Systolic blood pressure 112 mm[Hg] Fortino Logan MD Work Phone: [facility] 03-10-2025 15:59-0400 Body height 157.5 cm Clifford Rhoades DO Work Phone: [facility] 03-10-2025 15:59-0400 Body mass index (BMI) [Ratio] 24.73 kg/m2 Clifford Thomae DO Work Phone: [facility] 03-10-2025 15:59-0400 Body weight 61.33 kg Clifford Thomae DO Work Phone: [facility] 03-10-2025 15:59-0400 Diastolic blood pressure 84 mm[Hg] Clifford Thomae DO Work Phone: [facility] 03-10-2025 15:59-0400 Heart rate 85 /min Clifford Thomae DO Work Phone: [facility] 03-10-2025 15:59-0400 Respiratory rate 16 /min Clifford Thomae DO Work Phone: [facility] 03-10-2025 15:59-0400 Systolic blood pressure 130 mm[Hg] Clifford Thomae DO Work Phone: [facility] 02-08-2025 15:37-0400 Diastolic blood pressure 94 mm[Hg] Fortino Logan MD Work Phone: [facility] 02-08-2025 15:37-0400 Systolic blood pressure 146 mm[Hg] Fortino Logan MD Work Phone: [facility] 02-08-2025 14:43-0400 Body mass index (BMI) [Ratio] 23.58 kg/m2 Fortino Logan MD Work Phone: [facility] 02-08-2025 14:43-0400 Body weight 59.42 kg Fortino Logan MD Work Phone: [facility] 02-08-2025 14:43-0400 Heart rate 87 /min Fortino Logan MD Work Phone: [facility] 02-08-2025 14:43-0400 Respiratory rate 20 /min Fortino Logan MD Work Phone: [facility] 02-08-2025 14:43-0400 SaO2% (BldA) [Mass fraction] 96 % Fortino Logan MD Work Phone: [facility] 01-04-2025 11:06-0400 Body temperature 98.71 [degF] Fortino Logan MD Work Phone: [facility] 01-04-2025 11:06-0400 Diastolic blood pressure 100 mm[Hg] Fortino Logan MD Work Phone: [facility] 01-04-2025 11:06-0400 Heart rate 76 /min Fortino Logan MD Work Phone: [facility] 01-04-2025 11:06-0400 Respiratory rate 22 /min Fortino Logan MD Work Phone: [facility] 01-04-2025 11:06-0400 SaO2% (BldA) [Mass fraction] 96 % Fortino Logan MD Work Phone: [facility] 01-04-2025 11:06-0400 Systolic blood pressure 148 mm[Hg] Fortino Logan MD Work Phone: [facility] 12-31-2024 14:14-0400 Body mass index (BMI) [Ratio] 23.41 kg/m2 Sara Praisler-Wood DIRECT MAIL COORDINATOR.RN RECRUITMENT Work Phone: [facility] 12-31-2024 14:14-0400 Body temperature 98.49 [degF] Sara Praisler-Wood DIRECT MAIL COORDINATOR.RN RECRUITMENT Work Phone: [facility] 12-31-2024 14:14-0400 Body weight 59 kg Sara Praisler-Wood DIRECT MAIL COORDINATOR.RN RECRUITMENT Work Phone: [facility] 12-31-2024 14:14-0400 Diastolic blood pressure 88 mm[Hg] Sara Praisler-Wood DIRECT MAIL COORDINATOR.RN RECRUITMENT Work Phone: [facility] 12-31-2024 14:14-0400 Heart rate 78 /min Sara Praisler-Wood DIRECT MAIL COORDINATOR.RN RECRUITMENT Work Phone: [facility] 12-31-2024 14:14-0400 Respiratory rate 22 /min Sara Praisler-Wood DIRECT MAIL COORDINATOR.RN RECRUITMENT Work Phone: [facility] 12-31-2024 14:14-0400 SaO2% (BldA) [Mass fraction] 98 % Sara Vargas DIRECT MAIL COORDINATOR.RN RECRUITMENT Work Phone: [facility] 12-31-2024 14:14-0400 Systolic blood pressure 147 mm[Hg] Sara Vargas APRN.RN RECRUITMENT Work Phone: 4(219)126-678131 [place] [address] 12-27-2024 22:31-0400 Body temperature 97.4 [degF] Dr. Fortino Logan MD Work Phone: 3(190)984-756900 [place] [address] 12-27-2024 22:31-0400 Diastolic blood pressure 77 mm[Hg] Dr. Fortino Logan MD Work Phone: 8(570)202-743522 [place] [address] 12-27-2024 22:31-0400 Heart rate 81 /min Dr. Fortino Logan MD Work Phone: 5(450)312-897222 [place] [address] 12-27-2024 22:31-0400 Respiratory rate 16 /min Dr. Fortino Logan MD Work Phone: 0(509)691-495622 [place] [address] 12-27-2024 22:31-0400 SaO2% (BldA) [Mass fraction] 100 % Dr. Fortino Logan MD Work Phone: 2(890)393-657422 [place] [address] 12-27-2024 22:31-0400 Systolic blood pressure 139 mm[Hg] Dr. Fortino Logan MD Work Phone: 6(326)022-755222 [place] [address] 12-27-2024 19:43-0400 Body height 160.[address] Fortino Logan MD Work Phone: 6(293)231-448922 [place] [address] 12-27-2024 19:43-0400 Body mass index (BMI) [Ratio] 23.1 kg/m2 Dr. Fortino Logan MD Work Phone: 4(441)431-115222 [place] [address] 12-27-2024 19:43-0400 Body weight 59.[address] Fortino Logan MD Work Phone: 9(522)935-133922 [place] [address] 12-24-2024 13:22-0400 Body mass index (BMI) [Ratio] 23.57 kg/m2 Naila Toscano APRN.RN RECRUITMENT Work Phone: [facility] 12-24-2024 13:22-0400 Body temperature 99.19 [degF] Naila Toscano APRN.RN RECRUITMENT Work Phone: [facility] 12-24-2024 13:22-0400 Body weight 59.4 kg Naila Toscano APRN.RN RECRUITMENT Work Phone: [facility] 12-24-2024 13:22-0400 Diastolic blood pressure 93 mm[Hg] Naila Toscano APRN.RN RECRUITMENT Work Phone: [facility] 12-24-2024 13:22-0400 Heart rate 91 /min Naila Toscano APRN.RN RECRUITMENT Work Phone: [facility] 12-24-2024 13:22-0400 Respiratory rate 18 /min Naila Toscano APRN.RN RECRUITMENT Work Phone: [facility] 12-24-2024 13:22-0400 SaO2% (BldA) [Mass fraction] 95 % Naila Toscano APRN.RN RECRUITMENT Work Phone: [facility] 12-24-2024 13:22-0400 Systolic blood pressure 151 mm[Hg] Naila Toscano APRN.RN RECRUITMENT Work Phone: [facility] 11-12-2024 14:36-0500 Body mass index (BMI) [Ratio] 24.66 kg/m2 Melany Blanc APRN.RN RECRUITMENT Work Phone: [facility] 11-12-2024 14:36-0500 Body weight 62.14 kg Melany Blanc APRN.RN RECRUITMENT Work Phone: [facility] 11-12-2024 14:36-0500 Diastolic blood pressure 83 mm[Hg] Melany Blanc APRN.RN RECRUITMENT Work Phone: [facility] 11-12-2024 14:36-0500 Heart rate 71 /min Melany Blanc APRN.RN RECRUITMENT Work Phone: [facility] 11-12-2024 14:36-0500 Systolic blood pressure 145 mm[Hg] Melany Blanc APRN.RN RECRUITMENT Work Phone: [facility] 10-29-2024 09:05-0500 Body temperature 97.11 [degF] Clifford Thomae DO Work Phone: [facility] 10-29-2024 09:05-0500 Diastolic blood pressure 87 mm[Hg] Clifford Thomae DO Work Phone: 5(957)973-197942 [place] [address] 10-29-2024 09:05-0500 Heart rate 78 /min Clifford Thomae DO Work Phone: [facility] 10-29-2024 09:05-0500 Respiratory rate 16 /min Clifford Thomae DO Work Phone: 1(434)769-056042 [place] [address] 10-29-2024 09:05-0500 SaO2% (BldA) [Mass fraction] 97 % Clifford Thomae DO Work Phone: 1(327)278-926842 [place] [address] 10-29-2024 09:05-0500 Systolic blood pressure 129 mm[Hg] Clifford Thomae DO Work Phone: [facility] 10-29-2024 07:30-0500 Body mass index (BMI) [Ratio] 23.89 kg/m2 Clifford Thomae DO Work Phone: [facility] 10-29-2024 07:30-0500 Body weight 59.24 kg Clifford Thomae DO Work Phone: [facility] 10-08-2024 09:20-0500 Body mass index (BMI) [Ratio] 23.4 kg/m2 Melany Blanc APRN.RN RECRUITMENT Work Phone: [facility] 10-08-2024 09:20-0500 Body weight 58.97 kg Melany Blanc APRN.RN RECRUITMENT Work Phone: [facility] 10-08-2024 09:20-0500 Diastolic blood pressure 79 mm[Hg] Melany Blanc APRN.RN RECRUITMENT Work Phone: [facility] 10-08-2024 09:20-0500 Heart rate 89 /min Melany Knoble DIRECT MAIL COORDINATOR.RN RECRUITMENT Work Phone: [facility] 10-08-2024 09:20-0500 Systolic blood pressure 118 mm[Hg] Melany Blanc DIRECT MAIL COORDINATOR.RN RECRUITMENT Work Phone: [facility] 08-17-2024 14:33-0500 Body mass index (BMI) [Ratio] 23.22 kg/m2 Melany Blanc DIRECT MAIL COORDINATOR.RN RECRUITMENT Work Phone: [facility] 08-17-2024 14:33-0500 Body weight 58.51 kg Melany Blanc DIRECT MAIL COORDINATOR.RN RECRUITMENT Work Phone: [facility] 08-17-2024 14:33-0500 Diastolic blood pressure 83 mm[Hg] Melany Blanc DIRECT MAIL COORDINATOR.RN RECRUITMENT Work Phone: [facility] 08-17-2024 14:33-0500 Heart rate 76 /min Melany Blanc DIRECT MAIL COORDINATOR.RN RECRUITMENT Work Phone: [facility] 08-17-2024 14:33-0500 Respiratory rate 16 /min Melany Blanc DIRECT MAIL COORDINATOR.RN RECRUITMENT Work Phone: [facility] 08-17-2024 14:33-0500 Systolic blood pressure 125 mm[Hg] Melany Blanc DIRECT MAIL COORDINATOR.RN RECRUITMENT Work Phone: [facility] 07-27-2024 15:26-0400 Diastolic blood pressure 86 mm[Hg] Fortino Logan MD Work Phone: [facility] Comment on above: true BP average 07-27-2024 15:26-0400 Systolic blood pressure 150 mm[Hg] Fortino Logan MD Work Phone: [facility] Comment on above: true BP average 07-27-2024 14:19-0400 Body height 158.8 cm Fortino Logan MD Work Phone: [facility] 07-27-2024 14:19-0400 Body mass index (BMI) [Ratio] 22.86 kg/m2 Fortino Logan MD Work Phone: [facility] 07-27-2024 14:19-0400 Body weight 57.61 kg Fortino Logan MD Work Phone: [facility] 07-27-2024 14:19-0400 Heart rate 76 /min Fortino oLgan MD Work Phone: [facility] 07-27-2024 14:19-0400 Respiratory rate 16 /min Fortino Logan MD Work Phone: [facility] 07-06-2024 14:19-0400 Body mass index (BMI) [Ratio] 22.32 kg/m2 Fortino Logan MD Work Phone: [facility] 07-06-2024 14:19-0400 Body temperature 99.3 [degF] Fortino Logan MD Work Phone: [facility] 07-06-2024 14:19-0400 Body weight 56.25 kg Fortino Logan MD Work Phone: [facility] 07-06-2024 14:19-0400 Diastolic blood pressure 98 mm[Hg] Fortino Logan MD Work Phone: [facility] 07-06-2024 14:19-0400 Heart rate 81 /min Fortino Logan MD Work Phone: [facility] 07-06-2024 14:19-0400 Respiratory rate 18 /min Fortino Logan MD Work Phone: [facility] 07-06-2024 14:19-0400 SaO2% (BldA) [Mass fraction] 98 % Fortino Logan MD Work Phone: [facility] 07-06-2024 14:19-0400 Systolic blood pressure 138 mm[Hg] Fortino Logan MD Work Phone: [facility] 05-31-2024 15:15-0400 Body mass index (BMI) [Ratio] 21.24 kg/m2 Fortino Logan MD Work Phone: [facility] 05-31-2024 15:15-0400 Body weight 53.52 kg Fortino Logan MD Work Phone: [facility] 05-31-2024 15:15-0400 Diastolic blood pressure 92 mm[Hg] Fortino Logan MD Work Phone: [facility] 05-31-2024 15:15-0400 Heart rate 84 /min Fortino Logan MD Work Phone: [facility] 05-31-2024 15:15-0400 Respiratory rate 18 /min Fortino Logan MD Work Phone: [facility] 05-31-2024 15:15-0400 Systolic blood pressure 142 mm[Hg] Fortino Logan MD Work Phone: [facility] 04-14-2024 15:39-0400 Body mass index (BMI) [Ratio] 20.7 kg/m2 Fortino Logan MD Work Phone: [facility] 04-14-2024 15:39-0400 Body weight 52.16 kg Fortino Logan MD Work Phone: [facility] 04-14-2024 15:39-0400 Diastolic blood pressure 82 mm[Hg] Fortino Logan MD Work Phone: [facility] 04-14-2024 15:39-0400 Heart rate 84 /min Fortino Logan MD Work Phone: [facility] 04-14-2024 15:39-0400 Respiratory rate 18 /min Fortino Logan MD Work Phone: [facility] 04-14-2024 15:39-0400 Systolic blood pressure 134 mm[Hg] Fortino Logan MD Work Phone: [facility] 12-05-2023 14:38-0500 Body weight 53.98 kg Melany Blanc APRN.RN RECRUITMENT Work Phone: [facility] 12-05-2023 14:38-0500 Diastolic blood pressure 76 mm[Hg] Melany Blanc APRN.RN RECRUITMENT Work Phone: [facility] 12-05-2023 14:38-0500 Heart rate 76 /min Melany Blanc DIRECT MAIL COORDINATOR.RN RECRUITMENT Work Phone: [facility] [facility] 12-05-2023 14:38-0500 Respiratory rate 14 /min Melany Blanc APRN.RN RECRUITMENT Work Phone: [facility] 12-05-2023 14:38-0500 Systolic blood pressure 130 mm[Hg] Melany Blanc APRN.RN RECRUITMENT Work Phone: [facility] 08-28-2023 18:28-0500 Respiratory rate 16 /min Dr. Fortino Logan Work Phone: 0(760)[phone] [place] [address] 08-28-2023 18:28-0500 SaO2% (BldA) [Mass fraction] 95 % Dr. Fortino Logan Work Phone: 9(435)834-577200 [place] [address] 08-28-2023 18:02-0500 Diastolic blood pressure 87 mm[Hg] Dr. Fortino Logan Work Phone: 9(627)351-405900 [place] [address] 08-28-2023 18:02-0500 Heart rate 78 /min Dr. Fortino Logan Work Phone: 1(913)893-369600 [place] [address] 08-28-2023 18:02-0500 Systolic blood pressure 129 mm[Hg] Dr. Fortino Logan Work Phone: 3(479)613-637200 [place] [address] 08-28-2023 14:52-0500 Body height 157.[address] Fortino Logan Work Phone: 3(259)735-015800 [place] [address] 08-28-2023 14:52-0500 Body mass index (BMI) [Ratio] 24 kg/m2 Dr. Fortino Logan Work Phone: 8(646)054-050300 [place] [address] 08-28-2023 14:52-0500 Body temperature 98 [degF] Dr. Fortino Logan Work Phone: 3(266)394-979600 [place] [address] 08-28-2023 14:52-0500 Body weight 59.[address] Fortino Logan Work Phone: 6(157)215-370500 [place] [address] 08-06-2023 11:04-0400 Body weight 57.61 kg Fortino Logan MD Work Phone: [facility] 08-06-2023 11:04-0400 Diastolic blood pressure 84 mm[Hg] Fortino Logan MD Work Phone: [facility] 08-06-2023 11:04-0400 Heart rate 95 /min Fortino Logan MD Work Phone: [facility] 08-06-2023 11:04-0400 SaO2% (BldA) [Mass fraction] 97 % Fortino Logan MD Work Phone: [facility] 08-06-2023 11:04-0400 Systolic blood pressure 134 mm[Hg] Fortino Logan MD Work Phone: [facility] 06-04-2023 15:59-0400 Diastolic blood pressure 82 mm[Hg] Fortino Logan MD Work Phone: [facility] 06-04-2023 15:59-0400 Systolic blood pressure 134 mm[Hg] Fortino Logan MD Work Phone: [facility] 06-04-2023 15:15-0400 Body height 158.8 cm Fortino Logan MD Work Phone: [facility] 06-04-2023 15:15-0400 Body weight 59.42 kg Fortino Logan MD Work Phone: [facility] 06-04-2023 15:15-0400 Heart rate 84 /min Fortino Logan MD Work Phone: [facility] 06-04-2023 15:15-0400 Respiratory rate 16 /min Fortino Logan MD Work Phone: [facility] 05-06-2023 15:00-0400 Body height 160.[address] Fortino Logan Work Phone: [facility] 05-06-2023 15:00-0400 Body mass index (BMI) [Ratio] 23.2 kg/m2 Dr. Fortino Logan Work Phone: 4(809)138-799400 [place] [address] 05-06-2023 15:00-0400 Body weight 59.[address] Fortino Logan Work Phone: 8(000)[phone] [place] [address] 05-06-2023 15:00-0400 Diastolic blood pressure 86 mm[Hg] Dr. Fortino Logan Work Phone: [facility] 05-06-2023 15:00-0400 Heart rate 83 /min Dr. Fortino Logan Work Phone: [facility] 05-06-2023 15:00-0400 Respiratory rate 16 /min Dr. Fortino Logan Work Phone: [facility] 05-06-2023 15:00-0400 SaO2% (BldA) [Mass fraction] 95 % Dr. Fortino Logan Work Phone: [facility] 05-06-2023 15:00-0400 Systolic blood pressure 133 mm[Hg] Dr. Fortino Logan Work Phone: [facility] 01-16-2023 12:32-0400 Body temperature 97.81 [degF] Brayan Still MD Work Phone: [facility] 01-16-2023 12:32-0400 Body weight 61.87 kg Brayan Still MD Work Phone: [facility] 01-16-2023 12:32-0400 Diastolic blood pressure 74 mm[Hg] Brayan Still MD Work Phone: [facility] 01-16-2023 12:32-0400 Heart rate 90 /min Brayan Still MD Work Phone: [facility] 01-16-2023 12:32-0400 Respiratory rate 18 /min Brayan Still MD Work Phone: [facility] 01-16-2023 12:32-0400 SaO2% (BldA) [Mass fraction] 97 % Brayan Still MD Work Phone: [facility] 01-16-2023 12:32-0400 Systolic blood pressure 126 mm[Hg] Brayan Still MD Work Phone: [facility] 12-04-2022 15:34-0500 Diastolic blood pressure 84 mm[Hg] Fortino Logan MD Work Phone: [facility] 12-04-2022 15:34-0500 Systolic blood pressure 132 mm[Hg] Fortino Logan MD Work Phone: [facility] 12-04-2022 14:51-0500 Body weight 60.33 kg Fortino Logan MD Work Phone: [facility] 12-04-2022 14:51-0500 Heart rate 76 /min Fortino Logan MD Work Phone: [facility] 12-04-2022 14:51-0500 Respiratory rate 16 /min Fortino Logan MD Work Phone: [facility] 10-22-2022 18:45-0500 Body temperature 98.49 [degF] Dave Huffman MD Work Phone: [facility] 10-22-2022 18:45-0500 Body weight 61.96 kg Dave Huffman MD Work Phone: [facility] 10-22-2022 18:45-0500 Diastolic blood pressure 70 mm[Hg] Dave Huffman MD Work Phone: [facility] 10-22-2022 18:45-0500 Heart rate 95 /min Dave Huffman MD Work Phone: [facility] 10-22-2022 18:45-0500 Respiratory rate 18 /min Dave Huffman MD Work Phone: [facility] 10-22-2022 18:45-0500 SaO2% (BldA) [Mass fraction] 96 % Dave Huffman MD Work Phone: [facility] 10-22-2022 18:45-0500 Systolic blood pressure 126 mm[Hg] Dave Huffman MD Work Phone: [facility] 06-21-2022 14:45-0400 Diastolic blood pressure 79 mm[Hg] Mi Nurse Work Phone: [facility] 06-21-2022 14:45-0400 Heart rate 80 /min Mi Nurse Work Phone: [facility] 06-21-2022 14:45-0400 Systolic blood pressure 119 mm[Hg] Mi Nurse Work Phone: [facility] 06-14-2022 16:29-0400 Body temperature 98.8 [degF] Naila Toscano APRN.RN RECRUITMENT Work Phone: [facility] 06-14-2022 16:29-0400 Body weight 65.14 kg Naila Toscano APRN.RN RECRUITMENT Work Phone: [facility] 06-14-2022 16:29-0400 Diastolic blood pressure 76 mm[Hg] Naila Toscano APRN.RN RECRUITMENT Work Phone: [facility] 06-14-2022 16:29-0400 Heart rate 89 /min Naila Toscano APRN.RN RECRUITMENT Work Phone: [facility] 06-14-2022 16:29-0400 Respiratory rate 18 /min Naila Toscano APRN.RN RECRUITMENT Work Phone: [facility] 06-14-2022 16:29-0400 SaO2% (BldA) [Mass fraction] 98 % Naila Toscano APRN.RN RECRUITMENT Work Phone: [facility] 06-14-2022 16:29-0400 Systolic blood pressure 128 mm[Hg] Naila Toscano APRN.RN RECRUITMENT Work Phone: [facility] 06-03-2022 15:26-0400 Diastolic blood pressure 92 mm[Hg] Fortino Logan MD Work Phone: [facility] 06-03-2022 15:26-0400 Systolic blood pressure 142 mm[Hg] Fortino Logan MD Work Phone: [facility] 06-03-2022 14:55-0400 Body height 157.5 cm Fortino Logan MD Work Phone: [facility] 06-03-2022 14:55-0400 Body weight 64.41 kg Fortino Logan MD Work Phone: [facility] 06-03-2022 14:55-0400 Heart rate 76 /min Fortino Logan MD Work Phone: [facility] 06-03-2022 14:55-0400 Respiratory rate 16 /min Fortino Logan MD Work Phone: [facility] 05-30-2022 09:46-0400 Body weight 64.77 kg Christina Zurawick DIRECT MAIL COORDINATOR.RN RECRUITMENT Work Phone: [facility] 05-30-2022 09:46-0400 Diastolic blood pressure 78 mm[Hg] Christina Zurawick DIRECT MAIL COORDINATOR.RN RECRUITMENT Work Phone: [facility] 05-30-2022 09:46-0400 Heart rate 60 /min Christina Zurawick DIRECT MAIL COORDINATOR.RN RECRUITMENT Work Phone: [facility] 05-30-2022 09:46-0400 Respiratory rate 16 /min Christina Zurawick DIRECT MAIL COORDINATOR.RN RECRUITMENT Work Phone: [facility] 05-30-2022 09:46-0400 Systolic blood pressure 120 mm[Hg] Christina Zurawick DIRECT MAIL COORDINATOR.RN RECRUITMENT Work Phone: [facility] 05-16-2022 11:36-0400 Body height 157.5 cm Alexia Gresham MD Work Phone: [facility] 05-16-2022 11:36-0400 Body weight 65.77 kg Alexia Gresham MD Work Phone: [facility] 05-16-2022 11:36-0400 Diastolic blood pressure 78 mm[Hg] Alexia Gresham MD Work Phone: [facility] 05-16-2022 11:36-0400 Heart rate 93 /min lAexia Gresham MD Work Phone: [facility] 05-16-2022 11:36-0400 Systolic blood pressure 125 mm[Hg] Alexia Gresham MD Work Phone: [facility] 04-26-2022 12:30-0400 Body temperature 99.5 [degF] Fortino Meier DIRECT MAIL COORDINATOR.RN RECRUITMENT Work Phone: [facility] 04-26-2022 12:30-0400 Body weight 66.22 kg Fortinorush Thomasonenid DIRECT MAIL COORDINATOR.RN RECRUITMENT Work Phone: [facility] 04-26-2022 12:30-0400 Diastolic blood pressure 80 mm[Hg] Fortino Meier DIRECT MAIL COORDINATOR.RN RECRUITMENT Work Phone: [facility] 04-26-2022 12:30-0400 Heart rate 99 /min Fortino Thomasonbury DIRECT MAIL COORDINATOR.RN RECRUITMENT Work Phone: [facility] 04-26-2022 12:30-0400 Respiratory rate 20 /min Fortino Meier DIRECT MAIL COORDINATOR.RN RECRUITMENT Work Phone: [facility] 04-26-2022 12:30-0400 SaO2% (BldA) [Mass fraction] 97 % Fortino Thomasonenid DIRECT MAIL COORDINATOR.RN RECRUITMENT Work Phone: [facility] 04-26-2022 12:30-0400 Systolic blood pressure 132 mm[Hg] [facility]IL COORDINATOR.RN RECRUITMENT Work Phone: [facility] Encounters Encounter Date Encounter Type Care Provider Facility Start: 10-01-2025 ambulatory Fortino Logan Facility :[facility] Start: 08-15-2025 Encounter for genera l adult medical examination without abnormal findings FORTINO LOGAN [facility] Start: 08-15-2025 End: 08-15-2025 ambulatory FORTINO LOGAN Facility:[facility] Start: 07-26-2025 End: 07-26-2025 ambulatory Fortino Logan Facility:[facility] Start: 06-21-2025 End: 06-21-2025 ambulatory Pamela Sorenson PT [facility] Comment on above: Acute bilateral low back pain with bilateral sciatica (Primary Dx) Start: 06-14-2025 End: 06-14-2025 ambulatory Pamela Ohara'Rubén PT [facility] Comment on above: Acute bilateral low back pain with bilateral sciatica (Primary Dx) Start: 06-07-2025 End: 06-07-2025 ambulatory [facility] Start: 06-07-2025 End: 06-07-2025 Office outpatient visit 25 minutes Clifford R Thomae DO Work Phone: [facility] Comment on above: Gastroesophageal ref lux disease without esophagitis (Primary Dx) Start: 06-04-2025 End: 06-14-2025 ambulatory Fortino Logan MD Work Phone: [facility] Comment on above: Inhaler Start: 05-24-2025 End: 05-24-2025 ambulatory Pamela Sorenson PT [facility] Comment on above: Acute bilateral low back pain with bilateral sciatica (Primary Dx) Start: 05-17-2025 End: 05-17-2025 Subsequent hospital visit by physician Benigno Mcclure[facility] Comment on above: Gastroesophageal ref lux disease without esophagitis Start: 05-17-2025 End: 05-17-2025 ambulatory [facility] Start: 05-16-2025 End: 05-16-[address] Fortino Logan MD Work Phone: -Laboratory Start: 05-16-2025 End: 05-16-[address] Fortino Logan MD -Laboratory Work Phone: Start: 05-16-2025 End: 05-16-2025 ambulatory Fortino Logan Facility:[facility] Start: 05-10-2025 End: 05-10-2025 ambulatory Pamela Sorenson PT [facility] Comment on above: Acute bilateral low back pain with bilateral sciatica (Primary Dx) Start: 2025 End: 2025 Office outpatient visit 25 minutes Clifford R Thomae DO Work Phone: [facility] Comment on above: Gastroesophageal ref lux disease without esophagitis (Primary Dx) Start: 2025 End: 2025 ambulatory [facility] Start: 05-02-2025 End: 05-02-2025 Follow-up encounter Bailey Williamson PA-C Work Phone: [facility] Start: 04-20-2025 End: 04-20-2025 Subsequent hospital visit by physician [facility] Work Phone: Radiology Comment on above: Acute bilateral low back pain with bilateral sciatica [M54.42, M54.41] Start: 04-20-2025 End: 04-20-2025 Telephone encounter [facility] MD [facility] Comment on above: Medication Problem Start: 04-20-2025 End: 04-20-2025 Patient encounter procedure Fortino Logan MD Work Phone: [facility] Comment on above: Acute bilateral low back pain with bilateral sciatica (Primary Dx); COPD with asthma (HCC) Start: 04-20-2025 End: 04-20-2025 ambulatory FORTINO LOGAN Facility:[facility] Start: 04-13-2025 End: 04-13-2025 Chart abstracting Fortino Logan MD Work Phone: [facility] Comment on above: Results Start: 04-13-2025 End: 04-18-2025 Telephone encounter Fortino Logan MD Work Phone: [facility] Comment on above: Results Start: 04-12-2025 End: 04-12-[address] Fortino Logan MD Work Phone: -Laboratory Start: 04-12-2025 End: 04-12-[address] Fortino Logan MD -Laboratory Work Phone: Start: 04-12-2025 End: 04-12-2025 ambulatory Fortino Logan Facility:[facility] Start: 03-31-2025 End: 04-01-2025 Refill Fortino Logan MD Work Phone: [facility] Comment on above: Medication Problem Start: 03-29-2025 End: 03-29-2025 Patient encounter procedure Fortino Logan MD Work Phone: [facility] Comment on above: MURIEL (generalized anx iety disorder) (Primary Dx); Situational depression; Headache, unspecified headache type; Elevated blood pressure reading without diagnosis of hypertension; Hyponatremia; Acquired hypothyroidism Start: 03-29-2025 End: 03-29-2025 ambulatory FORTINO LOGAN Facility:[facility] Start: 03-21-2025 End: 03-21-2025 Telephone encounter Fortino Logan MD Work Phone: [facility] Comment on above: Medication Question Start: 03-10-2025 End: 03-10-2025 ambulatory [facility] Start: 03-10-2025 End: 03-10-2025 Office outpatient visit 25 minutes [facility] Work Phone: [facility] Comment on above: Gastroesophageal ref lux disease without esophagitis (Primary Dx) Start: 02-21-2025 End: 02-21-2025 ambulatory Fortino Logan MD Work Phone: [facility] Comment on above: Results Start: 02-21-2025 End: 02-21-2025 E-mail encounter from caregiver Fortino Logan MD Work Phone: [facility] Start: 02-21-2025 End: 02-21-2025 Follow-up encounter Fortino Logan MD Work Phone: [facility] Start: 02-11-2025 [facility] Start: 02-11-2025 End: 02-11-2025 Subsequent hospital visit by physician [facility] Work Phone: Radiology Comment on above: Mass of thyroid glan d [E07.9] Start: 02-10-2025 End: 02-10-[address] Fortino Logan MD -Laboratory Work Phone: Start: 02-10-2025 End: 02-10-2025 ambulatory Fortino Logan Facility:[facility] Start: 02-09-2025 End: 02-09-2025 Telephone encounter Jd Toscano MA [facility] Comment on above: Medication Problem Start: 02-08-2025 End: 02-08-2025 Patient encounter procedure Fortino Logan MD Work Phone: [facility] Comment on above: Dyslipidemia (Primar y Dx); Acquired hypothyroidism; Elevated fasting blood sugar; COPD with asthma (HCC); Gastroesophageal reflux disease with esophagitis without hemorrhage; MURIEL (generalized anxiety disorder); Situational depression; Primary insomnia; Smoker; Vitamin B12 deficiency; Vitamin D deficiency; Other constipation; Anemia, unspecified type; Mass of thyroid gland; Hypersomnolence; Snores; Witnessed episode of apnea Start: 02-08-2025 End: 02-09-2025 ambulatory Fortino Logan MD Work Phone: [facility] Comment on above: Sinus Start: 01-04-2025 End: 01-04-2025 Follow-up encounter Fortino Logan MD Work Phone: [facility] Comment on above: Results Start: 01-04-2025 End: 01-04-2025 Subsequent hospital visit by physician [facility] Work Phone: Radiology Comment on above: Abnormal breath soun ds [R06.89] Start: 01-04-2025 End: 01-04-2025 ambulatory FORTINO LOGAN Facility:[facility] Start: 01-04-2025 End: 01-04-2025 Patient encounter procedure Fortino Logan MD Work Phone: [facility] Comment on above: Bacterial sinusitis (Primary Dx); Abnormal breath sounds Start: 12-31-2024 End: 12-31-2024 ambulatory FORTINO LOGAN Facility:[facility] Start: 12-31-2024 End: 12-31-2024 Patient encounter procedure Sara Vargas APRN.CNP Work Phone: [facility] Comment on above: COPD with exacerbati on (HCC) (Primary Dx) Start: 12-29-2024 End: 12-29-2024 Chart abstracting Jd Toscano MA [facility] [place] Comment on above: ER F/U ([facility] ER ) Start: 12-27-2024 End: 12-27-2024 Emergency department patient visit Dr. Fortino Logan MD Work Phone: -Emergency Department Work Phone: Start: 12-24-2024 End: 12-24-2024 ambulatory FORTINO LOGAN Facility:[facility] Start: 12-24-2024 End: 12-24-2024 Patient encounter procedure Naila Toscano APRN.RN RECRUITMENT Work Phone: [facility] Comment on above: Skin infection (Prim nitza Dx); URI, acute Start: 12-08-2024 End: 12-09-2024 Refill Fortino Logan MD Work Phone: [facility] Comment on above: Refill Request Start: 11-22-2024 End: 11-22-2024 ambulatory Fortino Logan MD Work Phone: [facility] Comment on above: Medication Start: 11-15-2024 End: 11-15-2024 Telephone encounter Jd Toscano MA [facility] Comment on above: Results Start: 11-12-2024 End: 11-12-2024 Patient encounter procedure Melany Blanc APRN.RN RECRUITMENT Work Phone: [facility] Comment on above: MURIEL (generalized anx iety disorder); Situational depression Start: 11-12-2024 End: 11-12-2024 ambulatory MELANY BLANC Facility:[facility] Start: 11-12-2024 End: 11-12-2024 Telephone encounter Melany Blanc APRN.RN RECRUITMENT Work Phone: [facility] Comment on above: Results (/) Start: 11-10-2024 End: 11-10-2024 Patient encounter procedure Melany Blanc IP ARCHITECT-C -Laboratory Work Phone: Start: 11-10-2024 End: 11-10-2024 ambulatory Melany Blanc Facility:[facility] Start: 10-29-2024 End: 10-29-2024 Chart abstracting Fortino Logan MD Work Phone: [facility] Comment on above: Outside EGD Start: 10-29-2024 End: 11-01-2024 Telephone encounter Melany Blanc APRN.RN RECRUITMENT [facility] Comment on above: Results (Done at [facility] ) Start: 10-29-2024 End: 10-29-2024 Subsequent hospital visit by physician Clifford Rhoades DO Work Phone: [facility] Comment on above: Gastroesophageal ref lux disease with esophagitis without hemorrhage (Primary Dx) Start: 10-29-2024 End: 10-29-2024 ambulatory CLIFFORD RHOADES [facility] Start: 10-28-2024 End: 10-28-2024 Patient encounter procedure Melany Blanc IP ARCHITECT-C -Laboratory Work Phone: Start: 10-28-2024 End: 10-28-2024 ambulatory Melany Blanc Facility:[facility] Start: 10-08-2024 End: 10-08-2024 Patient encounter procedure Melany Blanc DIRECT MAIL COORDINATOR.RN RECRUITMENT Work Phone: [facility] Comment on above: MURIEL (generalized anx iety disorder) (Primary Dx); Situational depression Start: 10-08-2024 End: 10-08-2024 ambulatory MELANY BLANC Facility:[facility] Start: 10-08-2024 End: 10-08-2024 ambulatory Fortino Logan Facility:[facility] Start: 09-29-2024 End: 09-30-2024 ambulatory Fortino Logan MD Work Phone: [facility] Comment on above: Gastrologist Start: 09-21-2024 End: 09-21-2024 ambulatory Fortino Logan MD Work Phone: [facility] Comment on above: Advair Disc Start: 08-24-2024 End: 08-24-2024 Telephone encounter Bailey Williamson PA-C Work Phone: [facility] Comment on above: Results Start: 08-17-2024 End: 08-17-2024 Patient encounter procedure Melany Blanc DIRECT MAIL COORDINATOR.RN RECRUITMENT Work Phone: [facility] Comment on above: Elevated BP without diagnosis of hypertension (Primary Dx) Start: 08-17-2024 End: 08-17-2024 ambulatory MELANY BLANC Facility:[facility] Start: 07-27-2024 End: 07-27-2024 Patient encounter procedure Fortino Logan MD Work Phone: [facility] Comment on above: Well adult exam (Makenna mya Dx); Acquired hypothyroidism; Dyslipidemia; Elevated fasting blood sugar; Gastroesophageal reflux disease with esophagitis without hemorrhage; COPD with asthma (HCC); MURIEL (generalized anxiety disorder); Situational depression; Primary insomnia; Smoker; Vitamin B12 deficiency; Vitamin D deficiency; Medication management; Encounter for screening for diabetes mellitus; Screening for colon cancer; Elevated blood pressure reading without diagnosis of hypertension Start: 07-27-2024 End: 07-27-2024 Patient encounter status Fortino Logan MD Work Phone: [facility] Work Phone: Start: 07-21-2024 End: 07-21-2024 Telephone encounter Jd Toscano [facility] Comment on above: Results Start: 07-16-2024 End: 07-16-2024 Refill Fortino Logan MD Work Phone: [facility] Comment on above: Refill Request Start: 07-07-2024 End: 07-08-2024 Telephone encounter Fortino Logan MD Work Phone: [facility] Comment on above: Results Start: 07-06-2024 End: 07-06-2024 Patient encounter procedure Fortino Logan MD Work Phone: [facility] [place] Comment on above: Bacterial sinusitis (Primary Dx); Suspected COVID-19 virus infection Start: 06-21-2024 End: 06-21-2024 Telephone encounter Jd Toscano MA [facility] [place] Comment on above: Results Start: 06-18-2024 End: 06-18-2024 Chart abstracting Jd Toscano MA [facility] [place] Comment on above: Radiology US (Outsid e US ) Start: 06-08-2024 End: 06-08-2024 Telephone encounter Jd Toscano MA [facility] [place] Comment on above: Results (Outside lab - [facility] ) Start: 05-31-2024 End: 05-31-2024 Patient encounter procedure Fortino Logan MD Work Phone: [facility] Comment on above: MURIEL (generalized anx iety disorder) (Primary Dx); Situational depression; Acquired hypothyroidism; Epigastric pain Start: 04-14-2024 End: 04-14-2024 Patient encounter procedure Fortino Logan MD Work Phone: [facility] Comment on above: MURIEL (generalized anx iety disorder) (Primary Dx); Acquired hypothyroidism; Gastric hyperplasia; Gastroesophageal reflux disease with esophagitis without hemorrhage Start: 04-05-2024 Refill Fortino chairez MD Work Phone: [facility] Comment on above: Refill Request Start: 03-03-2024 ambulatory Fortino chairez MD Work Phone: Internal Medicine [facility] Start: 01-23-2024 Refill Alexia Gresham MD Work Phone: [facility] Comment on above: Refill Request Start: 12-09-2023 Telephone encounter Fortino Logan MD Work Phone: [facility] Comment on above: Lab Orders Results Start: 12-09-2023 End: 12-09-2023 ambulatory [facility] Work Phone: Start: 12-09-2023 End: 12-09-2023 Patient encounter procedure [facility] Work Phone: Start: 12-05-2023 End: 12-05-2023 Patient encounter procedure Melany Blanc APRN.RN RECRUITMENT Work Phone: [facility] Comment on above: MURIEL (generalized anx iety disorder) (Primary Dx); Situational depression; Dyslipidemia; Acquired hypothyroidism; Gastroesophageal reflux disease with esophagitis without hemorrhage; Vitamin B12 deficiency; COPD with asthma (HCC); Vitamin D deficiency; Smoker; Fatigue, unspecified type Start: 12-04-2023 Chart abstracting Fortino torres MD Work Phone: [facility] Comment on above: Outside Labs-[facility] Ord ered Start: 12-03-2023 End: 12-03-2023 Patient encounter procedure [facility] Work Phone: Start: 11-28-2023 ambulatory Fortino chairez MD Work Phone: [facility] Comment on above: Spiriva inhaler Start: 11-25-2023 Refill Fortino chairez MD Work Phone: [facility] Comment on above: Refill Request Start: 11-24-2023 Refill Fortino chairez MD Work Phone: [facility] Comment on above: Refill Request Opened In Error Start: 08-29-2023 Telephone encounter Deanna Marie [facility] Comment on above: Medication Problem Start: 08-28-2023 End: 08-28-2023 Emergency department patient visit Dr. Fortino Logan Work Phone: [facility] Work Phone: Start: 08-06-2023 ambulatory Fortino chairez MD Work Phone: [facility] Comment on above: Nexium Start: 08-06-2023 Refill Alexia Gresham MD Work Phone: [facility] Comment on above: Refill Request Start: 08-06-2023 End: 08-06-2023 Patient encounter procedure Fortino Logan MD Work Phone: [facility] Comment on above: COPD with asthma (Pr imary Dx) Start: 07-02-2023 Telephone encounter Fortino Logan MD Work Phone: [facility] Comment on above: Results Start: 07-01-2023 End: 07-01-2023 Subsequent hospital visit by physician [facility] Work Phone: Radiology Comment on above: Bilateral groin pain [R10.31, R10.32] Start: 06-16-2023 Orders Only [facility] Start: 06-04-2023 End: 06-04-2023 Patient encounter procedure Fortino Logan MD Work Phone: [facility] Comment on above: Well adult exam (Makenna mya Dx); Dyslipidemia; Elevated fasting blood sugar; COPD with asthma (HCC); Acquired hypothyroidism; Gastroesophageal reflux disease with esophagitis without hemorrhage; MURIEL (generalized anxiety disorder); Situational depression; Primary insomnia; Smoker; Varicose veins of bilateral lower extremities with other complications; Vitamin B12 deficiency; Vitamin D deficiency; Other constipation; OA (osteoarthrosis); Bilateral groin pain; Bilateral hip pain; Encounter for screening for lung cancer; Screening for colon cancer Start: 06-04-2023 End: 06-04-2023 Patient encounter status Fortino Logan MD Work Phone: [facility] Work Phone: Start: 06-02-2023 End: 06-02-[address] Fortino Logan Work Phone: [facility] Work Phone: Start: 06-02-2023 End: 06-02-[address] Fortino Logan Work Phone: [facility] Work Phone: Start: 05-07-2023 Chart abstracting Fortino torres MD Work Phone: [facility] Comment on above: Outside Surgical Con sult Start: 05-06-2023 End: 05-06-[address] Fortino Logan Work Phone: [facility] Work Phone: Start: 04-28-2023 Refill Fortino chairez MD Work Phone: [facility] Comment on above: Refill Request Start: 04-21-2023 Chart abstracting Fortino torres MD Work Phone: [facility] Comment on above: Consult Start: 04-11-2023 End: 04-11-[address] Fortino Logan Work Phone: [facility] Work Phone: Start: 04-11-2023 End: 04-11-[address] [facility] Work Phone: Start: 03-26-2023 Chart abstracting Fortino torres MD Work Phone: [facility] Comment on above: Results (Upper GI ) Start: 03-21-2023 End: 03-21-[address] Fortino Logan [facility] Work Phone: Start: 03-17-2023 End: 03-17-[address] Fortino Logan Work Phone: [facility] Work Phone: Start: 01-24-2023 Refill Alexia Gresham MD Work Phone: [facility] Comment on above: Refill Request Start: 01-16-2023 End: 01-16-2023 Patient encounter procedure Brayan Still MD Work Phone: [facility] Comment on above: Urinary frequency (P rimary Dx) Start: 12-23-2022 ambulatory Fortino chairez MD Work Phone: [facility] Comment on above: gastroenterology Start: 12-04-2022 End: 12-04-2022 Patient encounter procedure Fortino Logan MD Work Phone: [facility] Comment on above: Acquired hypothyroid ism (Primary Dx); Dyslipidemia; Gastroesophageal reflux disease with esophagitis without hemorrhage; Gastric hyperplasia; Elevated fasting blood sugar; Situational depression; MURIEL (generalized anxiety disorder); COPD with asthma (HCC); Vitamin D deficiency; Smoker; Primary insomnia; Vitamin B12 deficiency; Medication management Start: 10-22-2022 End: 10-22-2022 Patient encounter procedure Dave Huffman MD Work Phone: [facility] Comment on above: Nausea (Primary Dx); Urinary frequency; Gastroesophageal reflux disease with esophagitis without hemorrhage Start: 10-21-2022 ambulatory Alejandra Willoughby RN NURSE TRANSFER TABLE OPERATOR HELPER Comment on above: Nausea Start: 09-24-2022 Telephone encounter Fortino Logan MD Work Phone: [facility] [place] Comment on above: Insurance Authorizat ion (Nexium 40 mg BID) Start: 09-21-2022 ambulatory Fortino chairez MD Work Phone: [facility] [place] Comment on above: Insurance approval Start: 09-17-2022 Telephone encounter Fortino Logan MD Work Phone: [facility] [place] Comment on above: Insurance Authorizat ion (Esomeprazole ) Start: 09-15-2022 ambulatory Fortino chairez MD Work Phone: [facility] Comment on above: 90 day supply for me ds Start: 09-06-2022 Refill Alexia Gresham MD Work Phone: [facility] Comment on above: Refill Request Start: 08-13-2022 Telephone encounter Fortino Logan MD Work Phone: [facility] [place] Comment on above: PA needed Start: 06-21-2022 End: 06-21-2022 Nursing evaluation of patient and report Mi Nurse Work Phone: [facility] Comment on above: Elevated blood press ure reading without diagnosis of hypertension (Primary Dx) Start: 06-14-2022 End: 06-14-2022 Patient encounter procedure Naila Toscano APRN.CNP Work Phone: [facility] Comment on above: Acute pain of right shoulder (Primary Dx) Start: 06-10-2022 End: 06-10-2022 Subsequent hospital visit by physician [facility] Work Phone: Radiology Comment on above: Thyroid pain [E07.89 ] Start: 06-10-2022 Telephone encounter Fortino Logan MD Work Phone: [facility] [place] Comment on above: Results Start: 06-05-2022 Telephone encounter Fortino Logan MD Work Phone: [facility] Comment on above: Results Start: 06-03-2022 End: 06-03-2022 Subsequent hospital visit by physician [facility] Work Phone: Radiology Comment on above: Left leg pain [M79.6 05] Start: 06-03-2022 End: 06-03-2022 Patient encounter procedure Fortino Logan MD Work Phone: [facility] Comment on above: Well adult exam ([facility] mya Dx); Acquired hypothyroidism; Dyslipidemia; Elevated fasting blood sugar; COPD with asthma (HCC); Gastroesophageal reflux disease with esophagitis without hemorrhage; MURIEL (generalized anxiety disorder); Situational depression; Allergic rhinitis, unspecified seasonality, unspecified trigger; Primary insomnia; Vitamin B12 deficiency; Vitamin D deficiency; Left leg pain; Thyroid pain; Elevated blood pressure reading without diagnosis of hypertension; Smoker; Encounter for screening for lung cancer; Screening for colon cancer; Hypokalemia; Thrombocytosis Start: 06-03-2022 End: 06-03-2022 Patient encounter status Fortino Logan MD Work Phone: [facility] Start: 05-30-2022 End: 05-30-2022 ambulatory [facility] Work Phone: Start: 05-30-2022 End: 05-30-2022 Patient encounter procedure [facility] Start: 05-30-2022 End: 05-30-2022 Subsequent hospital visit by physician [facility] Work Phone: Radiology Comment on above: Acute left ankle kalia n [M25.572] Start: 05-30-2022 End: 05-30-2022 Patient encounter procedure Christina Dempsey APRN.CNP Work Phone: [facility] Comment on above: Acute left ankle kalia n (Primary Dx) Start: 05-29-2022 Telephone encounter Fortino Logan MD Work Phone: [facility] Comment on above: Lab orders to pick u p Start: 05-16-2022 End: 05-16-2022 Patient encounter procedure Alexia Gresham MD Work Phone: [facility] Comment on above: Gastroesophageal ref lux disease without esophagitis (Primary Dx); Tobacco abuse; Chronic obstructive pulmonary disease, unspecified COPD type (HCC) Start: 04-26-2022 End: 04-26-2022 Patient encounter procedure Fortino Meier APRN.CNP Work Phone: [facility] Comment on above: Chronic bilateral lo w back pain without sciatica; Pain in both lower extremities Start: 04-17-2022 ambulatory Fortino chairez MD Work Phone: [facility] Start: 03-29-2022 Refill Fortino chairez MD Work Phone: [facility] Comment on above: Refill Request Start: 02-21-2022 Telephone encounter Alexia garcia MD Work Phone: [facility] Comment on above: Future Appointment ( appt w/Dr. Gresham 02/27/22) Start: 08-20-2021 End: 08-20-2021 Subsequent hospital visit by physician [facility] [place] Work Phone: Radiology Comment on above: Foot pain, right [M7 9.671] Start: 05-18-2021 Patient encounter status Supriya Gresham MD Work Phone: [facility] Work Phone: Start: 04-07-2021 End: 04-07-2021 Subsequent hospital visit by physician [facility] Work Phone: Radiology Comment on above: Persistent cough [R0 5] Start: 04-17-2016 Patient encounter status Supriya Gresham MD Work Phone: [facility] Work Phone: Procedures Date Procedure Procedure Detail Performing Clinician Start: 05-17-2025 Gastroesophag reflx test w/intrluml imped eltrd Clifford Rhoades DO Work Phone: Start: 2025 Follow-up visit Follow-up CLIFFORD RHOADES Start: 02-10-2025 Total iron binding c apacity measurement Dr. Fortino Logan MD Work Phone: Start: 02-10-2025 CBC W/DIFF/PLT ([facility]) [facility] Provider Start: 02-10-2025 Comprehensive metabo lic 2000 panel - Serum or Plasma [facility] Provider Start: 02-10-2025 FERRITIN BLD [facility] Provid er Start: 02-10-2025 Folate [Mass/volume] in Serum or Plasma [facility] Provider Start: 02-10-2025 IRON PANEL (OUTSIDE) [facility]c f Provider Start: 02-10-2025 Lipid panel [facility] Provid er Start: 02-10-2025 Thyrotropin [Units/v olume] in Serum or Plasma [facility] Provider Start: 02-10-2025 Lipid 1995 panel - S rafi or Plasma Fortino Logan MD Work Phone: Start: 01-04-2025 Radiologic exam ches t 2 views Fortino Logan MD Work Phone: Start: 12-27-2024 Plain chest X-ray Dr. Nini Logan MD Work Phone: Start: 12-27-2024 SARS-CoV-2, Influenz a & RSV (PCR) Dr. Fortino Logan MD Work Phone: Start: 10-29-2024 Egd transoral biopsy single/multiple Clifford Rhoades DO Work Phone: Start: 10-29-2024 Level iv surg pathol ogy gross&microscopic exam Clifford Rhoades DO Work Phone: Start: 12-03-2023 Hemoglobin A1c/Hemoglobin.total in Blood [facility] Provider Start: 12-03-2023 Lipid panel [facility] Provid er Start: 12-03-2023 Thyrotropin [Units/v olume] in Serum or Plasma [facility] Provider Start: 12-03-2023 VITAMIN B12 BLOOD [facility] P rovider Start: 12-03-2023 VITAMIN D (OUTSIDE) [facility] Provider Start: 12-03-2023 Lipid 1995 panel - S rafi or Plasma Fortino Logan MD Work Phone: Start: 08-28-2023 Plain chest X-ray Dr. Nini Logan Work Phone: Start: 08-28-2023 SARS-CoV-2 & FLU Ant igen (Rapid) Dr. Fortion Logan Work Phone: Start: 08-28-2023 Viral antigen assay Start: 07-01-2023 Radex hips bilateral with pelvis minimum 5 views Fortino Logan MD Work Phone: Start: 06-02-2023 CBC W/DIFF/PLT ([facility]) [facility] Provider Start: 06-02-2023 Comprehensive metabo lic 2000 panel - Serum or Plasma [facility] Provider Start: 06-02-2023 Hemoglobin A1c/Hemoglobin.total in Blood [facility] Provider Start: 06-02-2023 Lipid panel [facility] Provid er Start: 06-02-2023 MAGNESIUM BLD [facility] Provi aktey Start: 06-02-2023 Thyrotropin [Units/v olume] in Serum or Plasma [facility] Provider Start: 06-02-2023 VITAMIN B12 BLOOD [facility] P rovider Start: 06-02-2023 VITAMIN D (OUTSIDE) [facility] Provider Start: 06-02-2023 Lipid 1996 panel - S rafi or Plasma Fortino Logan MD Work Phone: Start: 04-11-2023 Radionuclide gastric emptying study Dr. Fortino Logan Work Phone: Start: 03-21-2023 Radiologic examinati on of upper gastrointestinal tract and small bowel with serial films Dr. Fortino Logan Work Phone: Start: 01-16-2023 Urnls dip stick/tabl et rgnt auto w/o microscopy Sara Vargas APRN.RN RECRUITMENT Work Phone: Start: 10-22-2022 Urnls dip stick/tabl et rgnt auto w/o microscopy Dave Huffman MD Work Phone: Start: 06-10-2022 Us soft tissue head & neck real time imge docm Fortino Logan MD Work Phone: Start: 06-03-2022 Radiologic examinati on tibia & fibula 2 views Fortino Logan MD Work Phone: Start: 05-30-2022 CBC W/DIFF/PLT ([facility]) [facility] Provider Start: 05-30-2022 Comprehensive metabo lic 2000 panel - Serum or Plasma [facility] Provider Start: 05-30-2022 Hemoglobin A1c/Hemoglobin.total in Blood [facility] Provider Start: 05-30-2022 Lipid panel [facility] Provid er Start: 05-30-2022 Thyrotropin [Units/v olume] in Serum or Plasma [facility] Provider Start: 05-30-2022 VITAMIN B12 BLOOD [facility] P rovider Start: 05-30-2022 VITAMIN D (OUTSIDE) [facility] Provider Start: 05-30-2022 Radex ankle complete minimum 3 views Christina Walters DIRECT MAIL COORDINATOR.RN RECRUITMENT Work Phone: Start: 08-20-2021 Radex foot complete minimum 3 views Fortino Meier DIRECT MAIL COORDINATOR.RN RECRUITMENT Work Phone: Start: 04-07-2021 Radiologic exam ches t 2 views Fortino Logan MD Work Phone: Start: 05-13-2019 Mammography Alexia garcia MD Work Phone: Plan of Treatment Date Care Activity Detail Author Start: 02-10-2030 Lipid panel Lipid Screening [facility] Start: 12-03-2028 Lipid panel Lipid Screening [facility] Start: 06-02-2028 Lipid 1996 panel - S rafi or Plasma Lipid Screening [facility] Start: 06-02-2028 Lipid panel Lipid Screening [facility] Start: 06-02-2028 LIPID SCREEN LIPID SCREEN [facility] Start: 04-22-2028 Urine microalbumin profile [facility] Start: 02-11-2028 Diabetes Screening Diabetes Screenin g [facility] Start: 08-15-2027 Screening for malign ant neoplasm of colon [facility] Start: 05-30-2027 LIPID SCREEN LIPID SCREEN [facility] Start: 12-03-2026 Diabetes Screening Diabetes Screenin g [facility] Start: 10-23-2026 LIPID SCREEN LIPID SCREEN [facility] Start: 06-02-2026 DIABETES SCREEN DIABETES SCREEN [facility] Start: 06-02-2026 Diabetes Screening Diabetes Screenin g [facility] Start: 04-20-2026 Annual PCP Team Torpedo Specialist kevin Disease Visit Annual PCP Team Chronic Disease Visit [facility] Start: 03-29-2026 Annual PCP Team Torpedo Specialist kevin Disease Visit Annual PCP Team Chronic Disease Visit [facility] Start: 02-08-2026 Annual PCP Team Torpedo Specialist kevin Disease Visit Annual PCP Team Chronic Disease Visit [facility] Start: 01-04-2026 Annual PCP Team Torpedo Specialist kevin Disease Visit Annual PCP Team Chronic Disease Visit [facility] Start: 11-12-2025 Annual PCP Team Torpedo Specialist kevin Disease Visit Annual PCP Team Chronic Disease Visit [facility] Start: 10-23-2025 Diabetes mellitus screening Diabetes Screening [facility] Start: 10-23-2025 DIABETES SCREEN DIABETES SCREEN [facility] Start: 10-08-2025 Annual PCP Team Torpedo Specialist kevin Disease Visit Annual PCP Team Chronic Disease Visit [facility] Start: 08-17-2025 Annual PCP Team Torpedo Specialist kevin Disease Visit Annual PCP Team Chronic Disease Visit [facility] Start: 08-15-2025 End: 08-15-2025 Patient encounter procedure 08/15/2025 2:40 PM EST Office Visit [facility] [address] [place] [id number] Fortino Logan MD [address] [place] [id number] [facility] [place] Comment on above: Physical Start: 07-27-2025 Annual PCP Team Torpedo Specialist kevin Disease Visit Annual PCP Team Chronic Disease Visit [facility] Start: 07-06-2025 Annual PCP Team Torpedo Specialist kevin Disease Visit Annual PCP Team Chronic Disease Visit [facility] Start: 06-28-2025 End: 06-28-2025 ambulatory 06/28/2025 3:00 PM EDT OT/PT/Speech Visit [facility] [address] [place] [address] Pamela Sorenson, PT M54.42,M54.41 (ICD-10-CM) - Acute bilateral low back pain with bilateral sciatica [facility] Comment on above: M54.42,M54.41 (ICD-1 0-CM) - Acute bilateral low back pain with bilateral sciatica Start: 06-21-2025 End: 06-21-2025 ambulatory 06/21/2025 3:00 PM EDT OT/PT/Speech Visit [facility] [address] [place] [address] Pamela Sorenson, PT M54.42,M54.41 (ICD-10-CM) - Acute bilateral low back pain with bilateral sciatica [facility] Comment on above: M54.42,M54.41 (ICD-1 0-CM) - Acute bilateral low back pain with bilateral sciatica Start: 06-14-2025 End: 06-14-2025 ambulatory 06/14/2025 3:00 PM EDT OT/PT/Speech Visit [facility] [address] [place] [address] Pamela Sorenson, PT M54.42,M54.41 (ICD-10-CM) - Acute bilateral low back pain with bilateral sciatica [facility] Comment on above: M54.42,M54.41 (ICD-1 0-CM) - Acute bilateral low back pain with bilateral sciatica Start: 06-13-2025 COVID-19 Vaccine ( season) COVID-19 Vaccine ( season) [facility] Start: 06-13-2025 Influenza vaccination [facility] Start: 06-07-2025 End: 06-07-2025 ambulatory 06/07/2025 3:00 PM EDT OT/PT/Speech Visit [facility] [address] [place] [address] Pamela Sorenson, PT M54.42,M54.41 (ICD-10-CM) - Acute bilateral low back pain with bilateral sciatica [facility] Comment on above: M54.42,M54.41 (ICD-1 0-CM) - Acute bilateral low back pain with bilateral sciatica Start: 05-31-2025 End: 05-31-2025 ambulatory 05/31/2025 3:00 PM EDT OT/PT/Speech Visit [facility] [address] [place] [address] Pamela Sorenson, PT M54.42,M54.41 (ICD-10-CM) - Acute bilateral low back pain with bilateral sciatica [facility] Comment on above: M54.42,M54.41 (ICD-1 0-CM) - Acute bilateral low back pain with bilateral sciatica Start: 05-31-2025 Annual PCP Team Torpedo Specialist kevin Disease Visit Annual PCP Team Chronic Disease Visit [facility] Start: 05-30-2025 DIABETES SCREEN DIABETES SCREEN [facility] Start: 05-24-2025 End: 05-24-2025 ambulatory 05/24/2025 3:00 PM EDT OT/PT/Speech Visit [facility] [address] [place] [address] Pamela Sorenson, PT M54.42,M54.41 (ICD-10-CM) - Acute bilateral low back pain with bilateral sciatica [facility] Comment on above: M54.42,M54.41 (ICD-1 0-CM) - Acute bilateral low back pain with bilateral sciatica Start: 05-10-2025 End: 05-10-2025 ambulatory 05/10/2025 3:45 PM EDT OT/PT/Speech Visit [facility] [address] [place] [address] Pamela Sorenson, PT Acute bilateral low back pain with bilateral sciatica [M54.42, M54.41] [facility] Comment on above: Acute bilateral low back pain with bilateral sciatica [M54.42, M54.41] Start: 2025 End: 11-03-2026 Esophageal manometry Esophageal Manometry GI Routine Gastroesophageal reflux disease without esophagitis Expected: 2025, Expires: 11/03/2026 [facility] Service Area Work Phone: Comment on above: Expected: 2025 , Expires: 11/03/2026 Start: 2025 End: 11-03-2026 Esophageal pH Impedance 24 hours Esophageal pH Impedance 24 hours GI Routine Gastroesophageal reflux disease without esophagitis Expected: 2025, Expires: 11/03/2026 [facility] Work Phone: Comment on above: Expected: 2025 , Expires: 11/03/2026 Start: 04-26-2025 End: 04-26-2025 Patient encounter procedure 04/26/2025 2:40 PM EDT Office Visit [facility] [address] [place] [address] Fortino Logan MD [address] [place], [place] [id number] [phone] week follow up on ADAIR/Anxiety/BP [facility] Comment on above: 4 week follow up on ADAIR/Anxiety/BP Start: 04-25-2025 End: 07-25-2025 Thyrotropin [Units/volume] in Serum or Plasma THYROID STIMULATING HORMONE Lab Routine Acquired hypothyroidism Expected: 04/25/2025, Expires: 07/25/2025 [facility] Comment on above: Expected: 04/25/2025 , Expires: 07/25/2025 Start: 04-14-2025 Annual PCP Team Torpedo Specialist kevin Disease Visit Annual PCP Team Chronic Disease Visit [facility] Start: 04-12-2025 End: 04-12-2025 Patient encounter procedure 04/12/2025 9:10 PM EDT Office Visit Neurology [address] [place] [address] Hypersomnolence [G47.10] Neurology Comment on above: Hypersomnolence [G47 .10] Start: 03-29-2025 End: 03-29-2025 Patient encounter procedure 03/29/2025 2:40 PM EDT Office Visit [facility] [address] [place] [address] Fortino Logan MD [address] [place], [place] [id number] 6 week follow up on anxiety/depression [facility] Comment on above: 6 week follow up on anxiety/depression Start: 03-29-2025 End: 06-28-2025 Sodium [Moles/volume] in Serum or Plasma SODIUM/NA Lab Routine Hyponatremia Expected: 03/29/2025, Expires: 06/28/2025 [facility] Work Phone: Comment on above: Expected: 03/29/2025 , Expires: 06/28/2025 Start: 03-03-2025 End: 03-03-2025 Patient encounter procedure 03/03/2025 2:50 PM EDT Appointment Mammogram [address] [place] [address] Mammogram Start: 02-24-2025 End: 02-24-2025 Patient encounter procedure 02/24/2025 2:50 PM EDT Appointment Mammogram [address] [place] [address] Mammogram Start: 02-11-2025 End: 02-11-2025 Patient encounter procedure 02/11/2025 3:15 PM EDT Appointment Radiology [address] [place] [address] Mass of thyroid gland [E07.9] Radiology Comment on above: Mass of thyroid glan d [E07.9] Start: 02-08-2025 End: 05-10-2025 CBC W Auto Differential panel - Blood COMPLETE BLOOD COUNT AND DIFFERENTIAL Lab Routine Acquired hypothyroidism Anemia, unspecified type Expected: 02/08/2025, Expires: 05/10/2025 [facility] Comment on above: Expected: 02/08/2025 , Expires: 05/10/2025 Start: 02-08-2025 End: 05-10-2025 Cobalamin (Vitamin B12) [Mass/volume] in Serum or Plasma VITAMIN B12 Lab Routine Vitamin B12 deficiency Expected: 02/08/2025, Expires: 05/10/2025 [facility] Work Phone: Comment on above: Expected: 02/08/2025 , Expires: 05/10/2025 Start: 02-08-2025 End: 05-10-2025 Comprehensive metabolic 2000 panel - Serum or Plasma COMPREHENSIVE METABOLIC PANEL Lab Routine Dyslipidemia Expected: 02/08/2025, Expires: 05/10/2025 [facility] Comment on above: Expected: 02/08/2025 , Expires: 05/10/2025 Start: 02-08-2025 End: 05-10-2025 Ferritin [Mass/volume] in Serum or Plasma FERRITIN Lab Routine Anemia, unspecified type Expected: 02/08/2025, Expires: 05/10/2025 [facility] Comment on above: Expected: 02/08/2025 , Expires: 05/10/2025 Start: 02-08-2025 End: 05-10-2025 Folate [Mass/volume] in Serum or Plasma FOLATE, SERUM Lab Routine Anemia, unspecified type Expected: 02/08/2025, Expires: 05/10/2025 [facility] Comment on above: Expected: 02/08/2025 , Expires: 05/10/2025 Start: 02-08-2025 End: 05-10-2025 Iron and Iron binding capacity panel - Serum or Plasma IRON AND TIBC Lab Routine Anemia, unspecified type Expected: 02/08/2025, Expires: 05/10/2025 [facility] Comment on above: Expected: 02/08/2025 , Expires: 05/10/2025 Start: 02-08-2025 End: 05-10-2025 LIPID PANEL, NONFASTING LIPID PANEL, NONFASTING Lab Routine Dyslipidemia Expected: 02/08/2025, Expires: 05/10/2025 [facility] Comment on above: Expected: 02/08/2025 , Expires: 05/10/2025 Start: 02-08-2025 End: 05-10-2025 Thyrotropin [Units/volume] in Serum or Plasma THYROID STIMULATING HORMONE Lab Routine Acquired hypothyroidism Expected: 02/08/2025, Expires: 05/10/2025 [facility] Comment on above: Expected: 02/08/2025 , Expires: 05/10/2025 Start: 01-26-2025 End: 01-26-2025 Patient encounter procedure [facility] Comment on above: 6 month follow up Start: 12-27-2024 [facility] Start: 12-05-2024 Annual PCP Team Torpedo Specialist kevin Disease Visit Annual PCP Team Chronic Disease Visit [facility] Start: 11-08-2024 End: 11-08-2024 Patient encounter procedure 11/08/2024 2:40 PM EST Office Visit [facility] [address] [facility] [place] [phone] Melany Blanc, DIRECT MAIL COORDINATOR.RN RECRUITMENT [address] [place], [place] [id number] 1 month follow up [facility] Comment on above: 1 month follow up Start: 11-01-2024 End: 01-31-2025 CBC W Auto Differential panel - Blood COMPLETE BLOOD COUNT AND DIFFERENTIAL Lab Routine Low hemoglobin Expected: 11/01/2024, Expires: 01/31/2025 [facility] Work Phone: Comment on above: Expected: 11/01/2024 , Expires: 01/31/2025 Start: 10-23-2024 DIABETES SCREEN DIABETES SCREEN [facility] Start: 08-17-2024 End: 08-17-2024 Patient encounter procedure 08/17/2024 2:40 PM EST Office Visit [facility] [address] [facility], [place] [phone] Melany Blanc, DIRECT MAIL COORDINATOR.RN RECRUITMENT [address] [place] [phone] blood pressure recheck [facility] Comment on above: blood pressure reche ck Start: 08-06-2024 Annual PCP Team Torpedo Specialist kevin Disease Visit Annual PCP Team Chronic Disease Visit [facility] Start: 07-27-2024 End: 07-27-2024 Patient encounter procedure 07/27/2024 2:20 PM EDT Office Visit [facility] [address] [facility] [place] [phone] Fortino Logan MD [address] [facility] [place] [place] [address] Physical Family [facility] [place] Comment on above: Physical Start: 07-27-2024 End: 10-26-2024 25-hydroxyvitamin D3 [Mass/volume] in Serum or Plasma VITAMIN D 25 HYDROXY Lab Routine Vitamin D deficiency Medication management Expected: 07/27/2024, Expires: 10/26/2024 [facility] Work Phone: Comment on above: Expected: 07/27/2024 , Expires: 10/26/2024 Start: 07-27-2024 End: 10-26-2024 CBC W Auto Differential panel - Blood COMPLETE BLOOD COUNT AND DIFFERENTIAL Lab Routine Acquired hypothyroidism MURIEL (generalized anxiety disorder) Vitamin B12 deficiency Medication management Expected: 07/27/2024, Expires: 10/26/2024 [facility] Comment on above: Expected: 07/27/2024 , Expires: 10/26/2024 Start: 07-27-2024 End: 10-26-2024 Cobalamin (Vitamin B12) [Mass/volume] in Serum or Plasma VITAMIN B12 Lab Routine Vitamin B12 deficiency Expected: 07/27/2024, Expires: 10/26/2024 [facility] Comment on above: Expected: 07/27/2024 , Expires: 10/26/2024 Start: 07-27-2024 End: 10-26-2024 Hemoglobin A1c in Blood HEMOGLOBIN A1C Lab Routine Elevated fasting blood sugar Expected: 07/27/2024, Expires: 10/26/2024 [facility] Comment on above: Expected: 07/27/2024 , Expires: 10/26/2024 Start: 07-27-2024 End: 10-26-2024 LIPID PANEL, NONFASTING LIPID PANEL, NONFASTING Lab Routine Dyslipidemia Expected: 07/27/2024, Expires: 10/26/2024 [facility] Comment on above: Expected: 07/27/2024 , Expires: 10/26/2024 Start: 07-06-2024 End: 07-06-2024 Patient encounter procedure 07/06/2024 2:20 PM EDT Office Visit [facility] [address] [place] [address] Foritno Logan MD [address] [facility] [place] [address] Physical [facility] Comment on above: Physical Start: 06-30-2024 End: 06-30-2024 Patient encounter procedure 06/30/2024 3:00 PM EDT Office Visit [facility] [address] [place] [address] Fortino Logan MD [address] [place], [place] [phone] physical/ 6 months [facility] Comment on above: physical/ 6 months Start: 06-13-2024 Covid-19 Vaccine ( season) Covid-19 Vaccine ( season) [facility] Start: 06-13-2024 Covid-19 Vaccine () Covid-19 Vaccine () [facility] Start: 06-13-2024 Influenza vaccination Influenza Vacc ine (#1) [facility] Start: 06-04-2024 ANNUAL PCP TEAM FISH CLEANER MACHINE TENDER KEVIN DISEASE VISIT ANNUAL PCP TEAM CHRONIC DISEASE VISIT [facility] Start: 06-04-2024 COVID-19 VACCINE (#1) COVID-19 VACCI NE (#1) [facility] Comment on above: Postponed from 11/03 (Declined at this time) Start: 05-31-2024 End: 05-31-2024 Patient encounter procedure 05/31/2024 3:00 PM EDT Office Visit [facility] [address] [place], [place] [phone] Fortino Logan MD [address] [place], [place] [phone] 6 week follow up on Anxiety/GERD [facility] Comment on above: 6 week follow up on Anxiety/GERD Start: 05-31-2024 End: 08-30-2024 Amylase [Enzymatic activity/volume] in Serum or Plasma AMYLASE Lab Routine Epigastric pain Expected: 05/31/2024, Expires: 08/30/2024 [facility] Comment on above: Expected: 05/31/2024 , Expires: 08/30/2024 Start: 05-31-2024 End: 08-30-2024 Comprehensive metabolic 2000 panel - Serum or Plasma COMPREHENSIVE METABOLIC PANEL Lab Routine Epigastric pain Expected: 05/31/2024, Expires: 08/30/2024 [facility] Work Phone: Comment on above: Expected: 05/31/2024 , Expires: 08/30/2024 Start: 05-31-2024 End: 08-30-2024 Helicobacter pylori IgG Ab [Presence] in Serum or Plasma by Immunoassay H PYLORI IGG AB Lab Routine Epigastric pain Expected: 05/31/2024, Expires: 08/30/2024 [facility] Comment on above: Expected: 05/31/2024 , Expires: 08/30/2024 Start: 05-31-2024 End: 08-30-2024 Lipase [Enzymatic activity/volume] in Serum or Plasma LIPASE Lab Routine Epigastric pain Expected: 05/31/2024, Expires: 08/30/2024 [facility] Comment on above: Expected: 05/31/2024 , Expires: 08/30/2024 Start: 05-31-2024 End: 08-30-2024 Thyrotropin [Units/volume] in Serum or Plasma THYROID STIMULATING HORMONE Lab Routine Acquired hypothyroidism Expected: 05/31/2024, Expires: 08/30/2024 [facility] Comment on above: Expected: 05/31/2024 , Expires: 08/30/2024 Start: 04-14-2024 End: 04-14-2024 Patient encounter procedure 04/14/2024 3:00 PM EDT Office Visit [facility] [address] [place], [place] [address] Fortino Logan MD [address] [place], [place] [address] Anxiety and can't focus [facility] [place] Comment on above: Anxiety and can't fo cus Start: 12-05-2023 End: 03-05-2024 CBC W Auto Differential panel - Blood CBC + DIFF Lab Routine Fatigue, unspecified type Expected: 12/05/2023, Expires: 03/05/2024 [facility] Work Phone: Comment on above: Expected: 12/05/2023 , Expires: 03/05/2024 Start: 12-05-2023 End: 03-05-2024 Ferritin [Mass/volume] in Serum or Plasma FERRITIN BLD Lab Routine Fatigue, unspecified type Expected: 12/05/2023, Expires: 03/05/2024 [facility] Work Phone: Comment on above: Expected: 12/05/2023 , Expires: 03/05/2024 Start: 12-05-2023 End: 03-05-2024 Iron and Iron binding capacity panel - Serum or Plasma IRON + TIBC Lab Routine Fatigue, unspecified type Expected: 12/05/2023, Expires: 03/05/2024 [facility] Work Phone: Comment on above: Expected: 12/05/2023 , Expires: 03/05/2024 Start: 12-04-2023 ANNUAL PCP TEAM FISH CLEANER MACHINE TENDER KEVIN DISEASE VISIT ANNUAL PCP TEAM CHRONIC DISEASE VISIT [facility] Start: 11-21-2023 End: 01-21-2024 25-hydroxyvitamin D3 [Mass/volume] in Serum or Plasma VITAMIN D 25 HYDROXY Lab Routine Vitamin D deficiency Expected: 11/21/2023, Expires: 01/21/2024 [facility] Work Phone: Comment on above: Expected: 11/21/2023 , Expires: 01/21/2024 Start: 11-21-2023 End: 01-21-2024 Cobalamin (Vitamin B12) [Mass/volume] in Serum or Plasma VITAMIN B12 BLOOD Lab Routine Vitamin B12 deficiency Expected: 11/21/2023, Expires: 01/21/2024 [facility] Work Phone: Comment on above: Expected: 11/21/2023 , Expires: 01/21/2024 Start: 11-21-2023 End: 01-21-2024 Hemoglobin A1c in Blood HGB A1C Lab Routine Elevated fasting blood sugar Expected: 11/21/2023, Expires: 01/21/2024 [facility] Work Phone: Comment on above: Expected: 11/21/2023 , Expires: 01/21/2024 Start: 11-21-2023 End: 01-21-2024 LIPID PANEL, NONFASTING LIPID PANEL, NONFASTING Lab Routine Dyslipidemia Expected: 11/21/2023, Expires: 01/21/2024 [facility] Work Phone: Comment on above: Expected: 11/21/2023 , Expires: 01/21/2024 Start: 11-21-2023 End: 01-21-2024 Thyrotropin [Units/volume] in Serum or Plasma TSH BLD Lab Routine Acquired hypothyroidism Expected: 11/21/2023, Expires: 01/21/2024 [facility] Work Phone: Comment on above: Expected: 11/21/2023 , Expires: 01/21/2024 Start: 10-22-2023 ANNUAL PCP TEAM FISH CLEANER MACHINE TENDER KEVIN DISEASE VISIT ANNUAL PCP TEAM CHRONIC DISEASE VISIT [facility] Start: 06-13-2023 Covid-19 Vaccine () Covid-19 Vaccine () [facility] Start: 06-03-2023 ANNUAL PCP TEAM FISH CLEANER MACHINE TENDER KEVIN DISEASE VISIT ANNUAL PCP TEAM CHRONIC DISEASE VISIT [facility] Start: 06-03-2023 COVID-19 VACCINE (#1) COVID-19 VACCI NE (#1) [facility] Comment on above: Postponed from 11/03 (Declined at this time) Start: 05-30-2023 ANNUAL PCP TEAM FISH CLEANER MACHINE TENDER KEVIN DISEASE VISIT ANNUAL PCP TEAM CHRONIC DISEASE VISIT [facility] Start: 05-23-2023 End: 07-23-2023 25-hydroxyvitamin D3 [Mass/volume] in Serum or Plasma VITAMIN D 25 HYDROXY Lab Routine Vitamin D deficiency Expected: 05/23/2023, Expires: 07/23/2023 [facility] Work Phone: Comment on above: Expected: 05/23/2023 , Expires: 07/23/2023 Start: 05-23-2023 End: 07-23-2023 CBC W Auto Differential panel - Blood CBC + DIFF Lab Routine Acquired hypothyroidism Vitamin B12 deficiency Medication management Expected: 05/23/2023, Expires: 07/23/2023 [facility] Work Phone: Comment on above: Expected: 05/23/2023 , Expires: 07/23/2023 Start: 05-23-2023 End: 07-23-2023 Cobalamin (Vitamin B12) [Mass/volume] in Serum or Plasma VITAMIN B12 BLOOD Lab Routine Gastroesophageal reflux disease with esophagitis without hemorrhage Vitamin B12 deficiency Medication management Expected: 05/23/2023, Expires: 07/23/2023 [facility] Work Phone: Comment on above: Expected: 05/23/2023 , Expires: 07/23/2023 Start: 05-23-2023 End: 07-23-2023 Comprehensive metabolic 2000 panel - Serum or Plasma COMP METABOLIC PANEL Lab Routine Dyslipidemia Elevated fasting blood sugar Expected: 05/23/2023, Expires: 07/23/2023 [facility] Work Phone: Comment on above: Expected: 05/23/2023 , Expires: 07/23/2023 Start: 05-23-2023 End: 07-23-2023 Hemoglobin A1c in Blood HGB A1C Lab Routine Elevated fasting blood sugar Expected: 05/23/2023, Expires: 07/23/2023 [facility] Work Phone: Comment on above: Expected: 05/23/2023 , Expires: 07/23/2023 Start: 05-23-2023 End: 07-23-2023 LIPID PANEL, NONFASTING LIPID PANEL, NONFASTING Lab Routine Dyslipidemia Expected: 05/23/2023, Expires: 07/23/2023 [facility] Work Phone: Comment on above: Expected: 05/23/2023 , Expires: 07/23/2023 Start: 05-23-2023 End: 07-23-2023 Magnesium [Mass/volume] in Serum or Plasma MAGNESIUM BLD Lab Routine Gastroesophageal reflux disease with esophagitis without hemorrhage Medication management Expected: 05/23/2023, Expires: 07/23/2023 [facility] Work Phone: Comment on above: Expected: 05/23/2023 , Expires: 07/23/2023 Start: 05-23-2023 End: 07-23-2023 Thyrotropin [Units/volume] in Serum or Plasma TSH BLD Lab Routine Acquired hypothyroidism Expected: 05/23/2023, Expires: 07/23/2023 [facility] Work Phone: Comment on above: Expected: 05/23/2023 , Expires: 07/23/2023 Start: 05-23-2023 End: 07-23-2023 Urinalysis complete panel - Urine URINALYSIS, WITH MICROSCOPIC Lab Routine Dyslipidemia Expected: 05/23/2023, Expires: 07/23/2023 [facility] Work Phone: Comment on above: Expected: 05/23/2023 , Expires: 07/23/2023 Start: 11-23-2022 ANNUAL PCP TEAM FISH CLEANER MACHINE TENDER KEVIN DISEASE VISIT ANNUAL PCP TEAM CHRONIC DISEASE VISIT [facility] Start: 11-22-2022 End: 01-22-2023 Hemoglobin A1c in Blood HGB A1C Lab Routine Elevated fasting blood sugar Expected: 11/22/2022, Expires: 01/22/2023 [facility] Work Phone: Comment on above: Expected: 11/22/2022 , Expires: 01/22/2023 Start: 11-22-2022 End: 01-22-2023 Thyrotropin [Units/volume] in Serum or Plasma TSH BLD Lab Routine Acquired hypothyroidism Expected: 11/22/2022, Expires: 01/22/2023 [facility] Work Phone: Comment on above: Expected: 11/22/2022 , Expires: 01/22/2023 Start: 10-22-2022 End: 12-22-2022 CBC W Auto Differential panel - Blood CBC + DIFF Lab Routine Nausea Expected: 10/22/2022, Expires: 12/22/2022 [facility] Work Phone: Comment on above: Expected: 10/22/2022 , Expires: 12/22/2022 Start: 10-22-2022 End: 12-22-2022 Comprehensive metabolic 2000 panel - Serum or Plasma COMP METABOLIC PANEL Lab Routine Nausea Expected: 10/22/2022, Expires: 12/22/2022 [facility] Work Phone: Comment on above: Expected: 10/22/2022 , Expires: 12/22/2022 Start: 10-22-2022 End: 12-22-2022 Lipase [Enzymatic activity/volume] in Serum or Plasma LIPASE BLD Lab Routine Nausea Expected: 10/22/2022, Expires: 12/22/2022 [facility] Work Phone: Comment on above: Expected: 10/22/2022 , Expires: 12/22/2022 Start: 08-03-2022 End: 10-03-2022 Basic metabolic 2000 panel - Serum or Plasma BASIC METABOLIC PNL Lab Routine Hypokalemia Expected: 08/03/2022, Expires: 10/03/2022 [facility] Work Phone: Comment on above: Expected: 08/03/2022 , Expires: 10/03/2022 Start: 08-03-2022 End: 10-03-2022 CBC W Auto Differential panel - Blood CBC + DIFF Lab Routine Thrombocytosis Expected: 08/03/2022, Expires: 10/03/2022 [facility] Work Phone: Comment on above: Expected: 08/03/2022 , Expires: 10/03/2022 Start: 08-03-2022 End: 10-03-2022 Thyrotropin [Units/volume] in Serum or Plasma TSH BLD Lab Routine Acquired hypothyroidism Expected: 08/03/2022, Expires: 10/03/2022 [facility] Work Phone: Comment on above: Expected: 08/03/2022 , Expires: 10/03/2022 Start: 06-14-2022 End: 06-20-2023 XR SHOULDER GENERAL 3V OR MORE AP/TRUE AP/OTHER RIGHT XR SHOULDER GENERAL 3V OR MORE AP/TRUE AP/OTHER RIGHT Radiology STAT Acute pain of right shoulder Expected: 06/14/2022, Expires: 06/20/2023 [facility] Work Phone: Comment on above: Expected: 06/14/2022 , Expires: 06/20/2023 Start: 05-30-2022 End: 07-30-2022 25-hydroxyvitamin D3 [Mass/volume] in Serum or Plasma VITAMIN D 25 HYDROXY Lab Routine Vitamin D deficiency Expected: 05/30/2022, Expires: 07/30/2022 [facility] Work Phone: Comment on above: Expected: 05/30/2022 , Expires: 07/30/2022 Start: 05-30-2022 End: 07-30-2022 CBC W Auto Differential panel - Blood CBC + DIFF Lab Routine Smoker Expected: 05/30/2022, Expires: 07/30/2022 [facility] Work Phone: Comment on above: Expected: 05/30/2022 , Expires: 07/30/2022 Start: 05-30-2022 End: 07-30-2022 Cobalamin (Vitamin B12) [Mass/volume] in Serum or Plasma VITAMIN B12 BLOOD Lab Routine Vitamin B12 deficiency Expected: 05/30/2022, Expires: 07/30/2022 [facility] Work Phone: Comment on above: Expected: 05/30/2022 , Expires: 07/30/2022 Start: 05-30-2022 End: 07-30-2022 Comprehensive metabolic 2000 panel - Serum or Plasma COMP METABOLIC PANEL Lab Routine Dyslipidemia Elevated fasting blood sugar Acquired hypothyroidism Smoker Expected: 05/30/2022, Expires: 07/30/2022 [facility] Work Phone: Comment on above: Expected: 05/30/2022 , Expires: 07/30/2022 Start: 05-30-2022 End: 07-30-2022 Hemoglobin A1c in Blood HGB A1C Lab Routine Elevated fasting blood sugar Expected: 05/30/2022, Expires: 07/30/2022 [facility] Work Phone: Comment on above: Expected: 05/30/2022 , Expires: 07/30/2022 Start: 05-30-2022 End: 07-30-2022 LIPID PANEL, NONFASTING LIPID PANEL, NONFASTING Lab Routine Dyslipidemia Expected: 05/30/2022, Expires: 07/30/2022 [facility] Work Phone: Comment on above: Expected: 05/30/2022 , Expires: 07/30/2022 Start: 05-30-2022 End: 07-30-2022 Magnesium [Mass/volume] in Serum or Plasma MAGNESIUM BLD Lab Routine Medication management Expected: 05/30/2022, Expires: 07/30/2022 [facility] Work Phone: Comment on above: Expected: 05/30/2022 , Expires: 07/30/2022 Start: 05-30-2022 End: 07-30-2022 Thyrotropin [Units/volume] in Serum or Plasma TSH BLD Lab Routine Acquired hypothyroidism Expected: 05/30/2022, Expires: 07/30/2022 [facility] Work Phone: Comment on above: Expected: 05/30/2022 , Expires: 07/30/2022 Start: 05-18-2022 COVID-19 VACCINE (#1) COVID-19 VACCI NE (#1) [facility] Comment on above: Postponed from 05/03 (Declined at this time) Postponed from 11/03 (Declined at this time) Start: 05-16-2022 End: 07-16-2022 NICOTINE & METAB, UR NICOTINE & METAB, UR Lab Routine Tobacco abuse Expected: 05/16/2022, Expires: 07/16/2022 [facility] Work Phone: Comment on above: Expected: 05/16/2022 , Expires: 07/16/2022 Start: 05-13-2020 Mammography [facility] Start: 05-13-2020 Screening for malign ant neoplasm of breast [facility] Start: 12-09-2019 HPV TESTING HPV TESTING [facility] Start: 12-09-2019 PAP TESTING PAP TESTING [facility] Start: 2018 Influenza vaccination LUNG CANCER SC REENING [facility] Start: 2018 Screening for malign ant neoplasm of lung Lung Cancer Screening [facility] Start: 2018 Zoster Vaccines (1 of 2) Zoster Vacc zari (1 of 2) [facility] Start: 2013 COLOGUARD (FIT-DNA) COLOGUARD (FIT-D NA) [facility] Start: 2013 Colonoscopy COLONOSCOPY [facility] Start: 2013 COLORECTAL CANCER SCREENING COLORECTAL CANCER SCREENING [facility] Start: [address] COLONOGRAPHY [facility] Start: 2013 FECAL OCCULT BLOOD FECAL OCCULT BLOO D [facility] Start: 2013 Screening for malign ant neoplasm of colon [facility] Start: 2013 SIGMOIDOSCOPY SIGMOIDOSCOPY [facility] Start: 1998 Zoledronic acid therapy ALPHA- 1 ANTITRYPSIN DEFICIENCY SCREENING [facility] Start: 1990 DTaP/Tdap/Td Vaccine s (1 - Tdap) DTaP/Tdap/Td Vaccines (1 - Tdap) [facility] Start: 1989 Screening for malign ant neoplasm of cervix [facility] Start: 1987 Hepatitis B Vaccines (1 of 3 - 19+ 3-dose series) Hepatitis B Vaccines (1 of 3 - 19+ 3-dose series) [facility] Start: 1987 Pneumococcal vaccination Pneum ococcal Vaccine (1 of 2 - PCV) [facility] Start: 1987 Pneumococcal Vaccine : 50+ (1 of 2 - PCV) Pneumococcal Vaccine: 50+ (1 of 2 - PCV) [facility] Start: 1986 Hepatitis C screening Hepatitis C Sc [facility] Start: 1974 PNEUMOCOCCAL (1 - PCV) PNEUMOCOCCAL (1 - PCV) [facility] Start: 1969 MMR Vaccines (1 of 1 - Standard series) MMR Vaccines (1 of 1 - Standard series) [facility] Start: 1968 COVID-19 VACCINE (#1) COVID-19 VACCI NE (#1) [facility] Start: 1968 HEPATITIS B (1 of 3 - 3-dose series) HEPATITIS B (1 of 3 - 3-dose series) [facility] Start: 1968 HIV screening HIV Screening [facility] Start: 1968 Lipid panel Lipid Panel [facility] Start: 1968 Screening for malign ant neoplasm of colon [facility] Start: 1968 Thyroid stimulating hormone measurement TSH Level [facility] Start: 1968 Yearly Adult Physical Yearly Adult P hysical [facility] Cobalamin (Vitamin B 12) [Mass/volume] in Serum or Plasma VITAMIN B12 Lab Routine 02/10/2025 [facility] COLOGUARD COLOGUARD Lab Ro utine Screening for colon cancer Ordered: 07/27/2024 [facility] Comment on above: Ordered: 07/27/2024 COVID & INFLUENZA A/ B & RSV PCR, ROUTINE COVID & INFLUENZA A/B & RSV PCR, ROUTINE Microbiology Routine Suspected COVID-19 virus infection 07/06/2024 2:50 PM EDT [facility] Work Phone: End: 05-17-2025 Esophageal manometry [facility] Service Area Work Phone: Comment on above: Once for 1 Occurrenc es starting 05/17/2025 until 05/17/2025 End: 05-17-2025 Esophageal pH Impedance 24 hours [facility] Work Phone: Comment on above: Once for 1 Occurrenc es starting 05/17/2025 until 05/17/2025 End: 10-29-2024 Glucose [Mass/volume] in Serum or Plasma Glucose Lab Routine Once (Lab) for 1 Occurrences starting 10/29/2024 until 10/29/2024 [facility] Work Phone: Comment on above: Once (Lab) for 1 Occ urrences starting 10/29/2024 until 10/29/2024 Hemoglobin.gastroint carol nal.lower [Presence] in Stool by Immunoassay FECAL OCCULT BLOOD TEST Lab Routine Well adult exam Screening for colon cancer Ordered: 06/03/2022 [facility] Work Phone: Comment on above: Ordered: 06/03/2022 Hemoglobin.gastroint carol nal.lower [Presence] in Stool by Immunoassay FECAL OCCULT BLOOD TEST Lab Routine Well adult exam Screening for colon cancer Ordered: 06/04/2023 [facility] Work Phone: Comment on above: Ordered: 06/04/2023 End: 04-02-2025 MG Breast Screening KRANTHI SCREENING Radiology Routine Encounter for screening mammogram for breast cancer 1 Occurrences starting 03/03/2024 until 04/02/2025 [facility] Work Phone: Comment on above: 1 Occurrences starti ng 03/03/2024 until 04/02/2025 End: 10-29-2024 Moderate Sedation Moderate Sedation Procedures Routine Once for 1 Occurrences starting 10/29/2024 until 10/29/2024 [facility] Work Phone: Comment on above: Once for 1 Occurrenc es starting 10/29/2024 until 10/29/2024 Patient Education ED COPD Flare ED Influenza (Adult) [facility] Work Phone: Patient referral [facility] Work Phone: End: 02-08-2026 Polysomnogram POLYSOMNOGRAM (PSG) Procedures Routine Hypersomnolence Snores Witnessed episode of apnea 1 Occurrences starting 02/08/2025 until 02/08/2026 [facility] Comment on above: 1 Occurrences starti ng 02/08/2025 until 02/08/2026 End: 10-29-2024 Pulse oximetry, continuous Pulse oximetry, continuous Respiratory Care Routine Continuous until discontinued starting 10/29/2024 [facility] Work Phone: Comment on above: Continuous until dis continued starting 10/29/2024 End: 10-29-2024 Pulse oximetry, spot Pulse oximetry, spot Respiratory Care Routine Once for 1 Occurrences starting 10/29/2024 until 10/29/2024 [facility] Service Area Work Phone: Comment on above: Once for 1 Occurrenc es starting 10/29/2024 until 10/29/2024 End: 05-17-2023 Screening mammography bi 2-view breast inc cad KRANTHI SCREENING Radiology Routine Encounter for screening mammogram for breast cancer 1 Occurrences starting 04/17/2022 until 05/17/2023 [facility] Work Phone: Comment on above: 1 Occurrences starti ng 04/17/2022 until 05/17/2023 Surgical pathology study [facility] Work Phone: Comment on above: Release Upon Orderin g for 1 Occurrences starting 10/29/2024 End: 07-03-2023 Us soft tissue head & neck real time imge docm US THYROID/PARATHYROID Radiology Routine Thyroid pain 1 Occurrences starting 06/03/2022 until 07/03/2023 [facility] Work Phone: Comment on above: 1 Occurrences starti ng 06/03/2022 until 07/03/2023 End: 03-10-2026 US Thyroid gland US THYROID/PARATHYROID Radiology Routine Mass of thyroid gland 1 Occurrences starting 02/08/2025 until 03/10/2026 [facility] Comment on above: 1 Occurrences starti ng 02/08/2025 until 03/10/2026 US Thyroid gland US THYROID/PARA THYROID Radiology Routine Mass of thyroid gland 02/11/2025 3:13 PM EDT [facility] Work Phone: End: 06-29-2023 XR ANKLE GENERAL 3V AP/LAT/OBL LEFT XR ANKLE GENERAL 3V AP/LAT/OBL LEFT Radiology Routine Acute left ankle pain 1 Occurrences starting 05/30/2022 until 06/29/2023 [facility] Work Phone: Comment on above: 1 Occurrences starti ng 05/30/2022 until 06/29/2023 XR ANKLE GENERAL 3V AP/LAT/OBL LEFT XR ANKLE GENERAL 3V AP/LAT/OBL LEFT Radiology Routine Acute left ankle pain 05/30/2022 10:23 AM EDT [facility] Work Phone: End: 07-03-2024 XR HIP BILATERAL 5V PEL/AP/LAT EACH HIP XR HIP BILATERAL 5V PEL/AP/LAT EACH HIP Radiology Routine Bilateral groin pain Bilateral hip pain 1 Occurrences starting 06/04/2023 until 07/03/2024 [facility] Work Phone: Comment on above: 1 Occurrences starti ng 06/04/2023 until 07/03/2024 End: 05-20-2026 XR Lumbar spine AP and Lateral and oblique XR LUMBAR PARS DEFECT 4V AP/LAT/BOTH OBL Radiology Routine Acute bilateral low back pain with bilateral sciatica 1 Occurrences starting 04/20/2025 until 05/20/2026 [facility] Work Phone: Comment on above: 1 Occurrences starti ng 04/20/2025 until 05/20/2026 XR Lumbar spine AP a nd Lateral and oblique XR LUMBAR PARS DEFECT 4V AP/LAT/BOTH OBL Radiology Routine Acute bilateral low back pain with bilateral sciatica 04/20/2025 2:38 PM EDT [facility] End: 07-03-2023 XR TIBIA FIBULA 2V AP/LAT LEFT XR TIBIA FIBULA 2V AP/LAT LEFT Radiology Routine Left leg pain 1 Occurrences starting 06/03/2022 until 07/03/2023 [facility] Work Phone: Comment on above: 1 Occurrences starti ng 06/03/2022 until 07/03/2023 XR TIBIA FIBULA 2V AP/LAT LEFT XR TIBIA FIBULA 2V AP/LAT LEFT Radiology Routine Left leg pain 06/03/2022 4:32 PM EDT [facility] Work Phone: [facility] Payers Date Payer Category Payer Self-pay [id number] 2022 Blue [employer] Blue Shield BLUE CARD PPO O [id number] 2022 Blue Cross Blue [employer] Managed Care [facility] [id number] 2018 Unknown FLORENTIN JOHNSON PPO [id number] 2018-Present [phone] [facility] [id number] [place] [address] PPO [id number] 2018 Unknown [id number] 2014 Unknown FLORENTIN [id number] 2014 Unknown [id number] 1968 Unknown [id number] 1968 Unknown [id number] [id number] 1968 Unknown [id number] [id number] 1968 Unknown [id number] [id number] 1968 Unknown [id number] [id number] Unknown [id number] Unknown [id number] [id number] Unknown [id number] [id number] Unknown [id number] [id number] Unknown [id number] [id number] Unknown [id number] [id number] Unknown [id number] [id number] Unknown [id number] [id number] Unknown [id number] Social History Date Type Detail Facility Start: 08-12-2013 End: 10-26-2024 Tobacco smoking status NHIS Smokes tobacco daily [facility] Work Phone: Start: 1981 History of tobacco use Cigarette Smoker [facility] Work Phone: Start: 08-12-2013 End: 06-07-2025 Cigarettes smoked current (pack per day) - Reported 0.5 [facility] Start: 08-12-2013 End: 2025 Tobacco use and exposure Smokeless tobacco non-user [facility] Work Phone: Start: 11-23-2021 End: 04-20-2025 Alcohol intake Current non-drinker of alcohol (finding) [facility] Start: 01-30-2016 End: 05-30-2022 Tobacco Comment Both parents smoked in childhood home. 1st AM cigarette within 5 minutes of waking up. 01/30/16. TO [facility] Start: 1970 Sex Assigned At Not on file [facility] Start: 03-07-2021 End: 03-10-2025 Exposure to SARS-CoV-2 (event) Not sure [facility] Start: 03-12-2019 End: 08-28-2023 Tobacco smoking status NHIS Unknown if ever smoked [facility] Start: 1970 Sex Assigned At Female [facility] Start: 01-16-2023 End: 06-07-2025 Tobacco use panel [facility] Start: 09-13-2012 End: 10-01-2024 Adult Depression Screening Assessment 0 [facility] Start: 10-29-2024 End: 05-17-2025 Alcoholic beverage intake Lifetime non-drinker (finding) [facility] Work Phone: Start: 10-18-2024 Gender identity Identifies as female gender (finding) [facility] Work Phone: Start: 10-18-2024 Sexual orientation Heterosexual (finding) [facility] Work Phone: Start: 12-27-2024 Tobacco smoking status NHIS Current Heavy tobacco smoker [facility] Start: 12-27-2024 Sex Female (finding) [facility] Start: 2025 Tobacco smoking status NHIS Ex-smoker [facility] History of tobacco use Current smoker [facility] Work Phone: Functional Status Date Assessment Result Facility 06-07-2025 Functional status 118/81 025 3:41 PM EDT Brenda Zaragoza MA 118/81 [facility] 06-07-2025 Vital signs 87 06/07/2025 3: 41 PM EDT Brenda Zaragoza MA [facility] Work Phone: 05-17-2025 Functional status [facility] 05-17-2025 [facility] Work Phone: 10-29-2024 [facility] 10-29-2024 Rupert - suicide severity rating scale screener - recent [C-SSRS] [facility] Work Phone: 10-29-2024 Functional status [facility] Work Phone: 10-29-2024 [facility] Work Phone: 05-08-2015 Are you deaf, or do you have serious difficulty hearing No 05/08/2015 3:14 PM Lenore Baumann LPN No [facility] 05-08-2015 Are you blind, or do you have serious difficulty seeing, even when wearing glasses No 05/08/2015 3:14 PM TIKIT Lenore Godinez LPN No [facility] 05-08-2015 Do you have serious difficulty walking or climbing stairs No 05/08/2015 3:14 PM TIKIT Lenore Godinez LPN No [facility] 05-08-2015 Do you have difficul ty dressing or bathing No 05/08/2015 3:14 PM EDT Lenore Godinez LPN No [facility] 05-08-2015 Because of a physica l, mental, or emotional condition, do you have difficulty doing errands alone such as visiting a physician's office or shopping No 05/08/2015 3:14 PM EDT Lenore Godinez LPN No [facility] Mental Status Date Assessment Result Facility 12-27-2024 Cognitive function Level Of Cons ciousness Awake;Alert;Appropriate;Fol lows Commands [facility] Work Phone: 10-29-2024 Cognitive function finding Negative 10/29/2024 9:15 AM EST Sadaf Tracy RN Negative [facility] Work Phone: 08-28-2023 Cognitive function Voice/Name [facility] Work Phone: 05-08-2015 Because of a physica l, mental, or emotional condition, do you have serious difficulty concentrating, remembering, or making decisions No 05/08/2015 3:14 PM EDT Lenore Godinez LPN [facility] Clinical Notes 04-07-2021 to 08-15-2025 O'Pamela Montana, PT - 06/21/2025 3:03 PM EDPamela Ivey, PT - 06/14/2025 3:34 PM EDPamela Ivey, PT - 06/14/2025 2:59 PM EDTTelephone Encounter - Keli Nelsno MA - 06/06/2025 7:38 AM EDT Note Date & Type Note Facility 08-15-2025 Note HNO ID: [id number] Author: FORTINO LOGAN MD Service: ? Author Type: Physician Type: Progress Notes Filed: 08/15/2025 20:24 Note Text: Chief Complaint Patient presents with: Well Adult HPI Brenda Villalobos is a 55 year old female who presents here today for a Physical and chronic health issues.. Patient with COPD, dyslipidemia, hypothyroidism, insomnia, elevated fasting blood sugar, smoker, GERD, MURIEL, Depression, Vit D def and Vit B12 def as well as those reviewed and addressed below and in ROS. Brenda reports persistent acid reflux and pruritus. She was recently prescribed Voquezna 10 mg by her photoengraving machine operator/tender for GERD, which she has been taking for over a month. Initially, she was given a 20 mg sample, which effectively managed her symptoms, but the 10 mg dose has not provided the same relief. She experiences both acid regurgitation and a burning sensation, which she describes as so bad I can't see straight. She has contacted her photoengraving machine operator/tender's office multiple times without receiving a satisfactory response and has decided to continue the medication until her symptoms worsen. the epigastric pain she had been having though has resolved. She also reports severe pruritus that began approximately 2 months ago, describing it as feeling like little pricks or something. The pruritus is generalized, affecting her head, face, and back of her legs, and is not alleviated by lotion. She denies any visible rash and has not changed any detergents, lotions, or shampoos. She has not started any new medications other than Voquezna and has even discontinued it for about a week to see if the itching would subside, but it did not. She has a history of dry skin but states, this don't feel like no dry skin. Brenda has a history of hypothyroidism and is currently on a lower dose of levothyroxine. She is also taking B12 and vitamin D supplements. She denies any recent surgeries or new health issues in her blood relatives. She has not had a mammogram since 2019 due to a negative experience with the scheduling process. She denies fevers, cephalalgia, changes in hearing or vision, issues with her nose or throat, lumps or swelling in her neck, increased wheezing, dyspnea, hemoptysis, chest pain, palpitations, or leg swelling. She also denies nausea, emesis, diarrhea, hematochezia, hematuria, dysuria, or urinary urgency. She reports increased urinary frequency, which she attributes to high water intake. She denies unusual muscle or joint aches, skin lesions, rashes, or sores, easy bruising or bleeding, changes in heat or cold tolerance, increased thirst, syncope, seizures, or tremors. Brenda has a history of anxiety and depression, for which she was taking duloxetine 60 mg BID. She discontinued the medication cold without consulting her healthcare provider, fearing potential interactions with Voquezna. She denies experiencing lightheadedness or dizziness after discontinuation and reports only one episode of anxiety since from her significant other. She feels her depression is improving and does not believe she needs to resume duloxetine. She denies alcohol consumption and has reduced her smoking to 2-3 cigarettes per day. Past medical history, appointments, medications, allergies reviewed. 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 Has been on omeprazole, pantoprazole and prevacid with no relief of symptoms. Nexium has been helpful and dexalant Headache, unspecified headache type 03/29/2025 Hyponatremia 04/18/2025 On 04/26/2025 give patient order to re[eat sodium in a month. Placed on 1 g sodium a day. Insomnia 04/12/2014 Iron deficiency anemia 02/21/2025 OA (osteoarthrosis) 05/18/2021 Post-menopausal Situational depression 04/19/2020 Smoker 08/12/2013 Started at the age of 11 up to 1.5 PPD Spastic bladder 10/23/2018 Thrombocytosis 02/21/2025 Varicose veins of bilateral lower extremities with other complications 04/19/2020 bleeding at times Vitamin B12 deficiency 10/25/2020 Vitamin D deficiency Well adult exam 04/17/2016 last done: 04/19/20 Previous Surgical History PAST SURGICAL HISTORY Procedure Laterality Date 48 HOUR PH STUDY 09/13/2021 Demeester score-28.6; Dr. Gresham EGD TRANSORAL BIOPSY SINGLE/MULTIPLE 05/27/2016 EGD WITH BIOPSY(S) 09/13/20 (more content not included)... [facility] 08-01-2025 Note HNO ID: [id number] Author: AYANA BLAND RN Service: ? Author Type: Registered Nurse Type: Progress Notes Filed: 08/01/2025 13:40 Note Text: Patient notified of results and provider's instructions. Patient verbalizes understanding. Lab order Faxed to [facility] Ayana Bland RN [facility] 07-31-2025 Note HNO ID: [id number] Author: FORTINO LOGAN MD Service: ? Author Type: Physician Type: Progress Notes Filed: 07/31/2025 17:20 Note Text: Advise patient that her thyroid function is slightly worse and it may of been my fault. Backk in May he lab showed she was getting too much levothyroxine and at that time she was taking 100 mcg Fri-Fri and none on Friday. I wanted to cut her back but mistakenly bumped her up a 1/2 a dose on Friday instead of cutting back some on Fri. I want to still do the 100 mcg tab. Take one daily Fri-Fri, 1/2 a tab on Fri and none on Friday. Will need thyroid lab rechecked on or after 10/01/2025. Order placed and will need faxed to [facility]. [facility] 07-27-2025 Note HNO ID: [id number] Author: KELI NELSON MA Service: ? Author Type: Manager Float Type: Progress Notes Filed: 07/27/2025 08:24 Note Text: Scan on 07/26/2025 4:35 PM by Provider, External, PA-C: TSH [facility] 06-21-2025 Note HNO ID: [id number] Author: PAMELA SORENSON PT Service: ? Author Type: Physical Therapist Type: Progress Notes Filed: 06/21/2025 15:46 Note Text: Episode Visit Count: 4 Therapist That Will Accept/Oversee The Plan Of Care: Pamela Sorenson Start of Care Date: 05/10/25 Onset Date: 05/10/95 Plan of Care Certification Date: 11/19/21 Next Certification Due Date: 12/17/21 [facility] PHYSICAL THERAPY DISCONTINUANCE OF CARE PLAN OF CARE UPDATE: Assessment: Brenda Villalobos is discontinued from Physical Therapy services due to goal achievement.. Patient was seen for 4 visits from Start of Care Date: 05/10/25 to 06/21/2025 and treatment included: Therapeutic exercise, Neuromuscular re-education, and Self-prison management. Goals for Episode of Care: established 05/10/25 Goals updated on 06/21/2025. Independent in home exercises.-- MET Patient will decrease pain to 1-2/10 with functional activities to allow patient to improve ambulation, transfers, and standing tolerance for ADLs. -- MET Restore pain-free lumbar ROM to minimal to no limitation grossly to allow for ADLs. -- MET Maintain proper sitting posture throughout session -- MET Patient will be able to tolerate work activities for 6-8 hours without increased symptoms. -- MET Patient Goals: reduce LBP -- MET SUBJECTIVE: Pt. reports no pain. Agrees to discharge today.. Patient Goals: reduce LBP Functional Limitations: walking, bending (laying) Pain: Pain Pain Level: 0 Pain Location: Low Back/Lumbar Spine - Right Description: Stiffness Frequency: Continuous Post Treatment Pain Post Treatment Pain Level: 2 Post Treatment Pain Location: Low Back/Lumbar Spine- Midline PROMIS Scales 06/14/2025 05/10/2025 Higher is Better Phys Func - T Score 49 (within normal limits) 41 (mild dysfunction) Phys Func - Percentile 46 18 Self-Eff Symptom - T Score 52 (Average) 53 (Average) Self-Eff Symptom - Percentile 58 62 Proxy-reported T-Score and Percentile Interpretation T-scores: mean of general population = 50. 5 points is clinically meaningfully difference Percentiles provide an indication of how the patient's score ranks in relation to the general population. Higher percentile rankings indicate better function/quality of life. 50th percentile is the average of the general population and indicates half of respondents had a worse score. OBJECTIVE MEASURES WITH LEVEL OF FUNCTION: TREATMENT: Therapeutic Exercise: 1: upright bike, seat 4, level 1, 1:1 thorughout, 5 min, subjective collected 2: hook lying TA activation with isometric hold 5x30 sec 3: seated QL stretch 3x30 sec each side Skilled Intervention: Patient was educated in proper exercise technique and purpose for exercises. Skilled judgment was used in selection of appropriate interventions. Provided written instruction for home exercise program to facilitate proper performance and compliance. Correct performance of therapeutic exercises was facilitated with verbal, visual, and tactile cuing. Educated patient on rationale for performing exercises in regards to decreasing fatigue , including balance, increase ease of ADL, and ROM and function . Patient education as noted. Neuromuscular Re-Education: 1: seated on 85 cm physioball 2x10 PPT 2: seated on 85 cm physioball 2x10 TA with alt UE raises 3: seated on 85 cm physioball TA with alt LE raises 3 sets of 1 min 4: seated on 85 cm physioball TA with alt opposite UE/LE raises 3 sets of 1 min 5: seated on 85 cm physioball TA with alt quad SLR raises 3 sets of 1 min Skilled Intervention: Skilled judgment used to assess appropriate program for balance and coordination activity. Education in proprioceptive/kinesthetic awareness during dynamic activities. Self-Mcfp Management: 1: discussed continued compliance with HEP to self manage symptoms Skilled Intervention: Reviewed patient specific diagnosis in relation to activities of daily living/home management. Activity progression based on professional judgement. Billing Therapeutic Exercise Treatment Minutes: 10 Neuromuscular Re-Education Treatment Minutes: 25 Self-Care/Home Management Treatment Minutes: 5 Skilled Treatment Time Minutes (timed and untimed codes): 40 Total Session Time (minutes): 40 Session Start Time : 1504 Session Stop Time : 1544 Pamela Sorenson, PT [facility] 06-21-2025 History of Present illness Narrative Images from the original note were not included. Episode Visit Count: 4 Therapist That Will Accept/Oversee The Plan Of Care: Pamela Sorenson Start of Care Date: 05/10/25 Onset Date: 05/10/95 Plan of Care Certification Date: 11/19/21 Next Certification Due Date: 12/17/21 REHABILITATION AND SPORTS THERAPY PHYSICAL THERAPY DISCONTINUANCE OF CARE PLAN OF CARE UPDATE: Assessment: Brenda Villalobos is discontinued from Physical Therapy services due to goal achievement.. Patient was seen for 4 visits from Start of Care Date: 05/10/25 to 06/21/2025 and treatment included: Therapeutic exercise, Neuromuscular re-education, and Self-prison management. Goals for Episode of Care: established 05/10/25 Goals updated on 06/21/2025. Independent in home exercises.-- MET Patient will decrease pain to 1-2/10 with functional activities to allow patient to improve ambulation, transfers, and standing tolerance for ADLs. -- MET Restore pain-free lumbar ROM to minimal to no limitation grossly to allow for ADLs. -- MET Maintain proper sitting posture throughout session -- MET Patient will be able to tolerate work activities for 6-8 hours without increased symptoms. -- MET Patient Goals: reduce LBP -- MET SUBJECTIVE: Pt. reports no pain. Agrees to discharge today.. Patient Goals: reduce LBP Functional Limitations: walking, bending (laying) Pain: Pain Pain Level: 0 Pain Location: Low Back/Lumbar Spine - Right Description: Stiffness Frequency: Continuous Post Treatment Pain Post Treatment Pain Level: 2 Post Treatment Pain Location: Low Back/Lumbar Spine- Midline PROMIS Scales 06/14/2025 05/10/2025 Higher is Better Phys Func - T Score 49 (within normal limits) 41 (mild dysfunction) Phys Func - Percentile 46 18 Self-Eff Symptom - T Score 52 (Average) 53 (Average) Self-Eff Symptom - Percentile 58 62 Proxy-reported T-Score and Percentile Interpretation T-scores: mean of general population = 50. 5 points is clinically meaningfully difference Percentiles provide an indication of how the patient's score ranks in relation to the general population. Higher percentile rankings indicate better function/quality of life. 50th percentile is the average of the general population and indicates half of respondents had a worse score. OBJECTIVE MEASURES WITH LEVEL OF FUNCTION: TREATMENT: Therapeutic Exercise: 1: upright bike, seat 4, level 1, 1:1 thorughout, 5 min, subjective collected 2: hook lying TA activation with isometric hold 5x30 sec 3: seated QL stretch 3x30 sec each side Skilled Intervention: Patient was educated in proper exercise technique and purpose for exercises. Skilled judgment was used in selection of appropriate interventions. Provided written instruction for home exercise program to facilitate proper performance and compliance. Correct performance of therapeutic exercises was facilitated with verbal, visual, and tactile cuing. Educated patient on rationale for performing exercises in regards to decreasing fatigue , including balance, increase ease of ADL, and ROM and function . Patient education as noted. Neuromuscular Re-Education: 1: seated on 85 cm physioball 2x10 PPT 2: seated on 85 cm physioball 2x10 TA with alt UE raises 3: seated on 85 cm physioball TA with alt LE raises 3 sets of 1 min 4: seated on 85 cm physioball TA with alt opposite UE/LE raises 3 sets of 1 min 5: seated on 85 cm physioball TA with alt quad SLR raises 3 sets of 1 min Skilled Intervention: Skilled judgment used to assess appropriate program for balance and coordination activity. Education in proprioceptive/kinesthetic awareness during dynamic activities. Self-[facility] Management: 1: discussed continued compliance with HEP to self manage symptoms Skilled Intervention: Reviewed patient specific diagnosis in relation to activities of daily living/home management. Activity progression based on professional judgement. Billing Therapeutic Exercise Treatment Minutes: 10 Neuromuscular Re-Education Treatment Minutes: 25 Self-Care/Home Management Treatment Minutes: 5 Skilled Treatment Time Minutes (timed and untimed codes): 40 Total Session Time (minutes): 40 Session Start Time : 1504 Session Stop Time : 1544 Pamela Sorenson PT documented in this encounter [facility] 06-14-2025 History of Present illness Narrative Program_ID:[id number] Access Code: [email or web address] URL: [email or web address] m/ Date: 06-14-2025 Prepared By: Pamela Sorenson Program Notes Exercises - Seated Transversus Abdominis Bracing with PLB - 2 x daily - 7 x weekly - 4 sets - 10 reps - Seated March - 2 x daily - 7 x weekly - 2 sets - 30 reps - Seated Marching with Opposite Shoulder Flexion - 2 x daily - 7 x weekly - 2 sets - 30 reps Episode Visit Count: 3 Therapist That Will Accept/Oversee The Plan Of Care: Pamela Sorenson Start of Care Date: 05/10/25 Onset Date: 05/10/95 Plan of Care Certification Date: 11/19/21 Next Certification Due Date: 12/17/21 REHABILITATION AND SPORTS THERAPY PHYSICAL THERAPY TREATMENT NOTE ASSESSMENT: Brenda Villalobos tolerated the session with decreased symptoms. She demonstrated improvements in TA activation when given cues to tuck the tail bone under the pelvis. The patient will continue to benefit from ongoing skilled physical therapy to progress toward set goals. PLAN FOR NEXT VISIT: progress HEP to standing TA activation exercises. SUBJECTIVE: Pt. compliant with HEP which has been effective. Patient Goals: reduce LBP Functional Limitations: walking, bending (laying) Pain: Pain Pain Level: 0 Pain Location: Low Back/Lumbar Spine - Right Description: Stiffness Frequency: Continuous Post Treatment Pain Post Treatment Pain Level: 0 Post Treatment Pain Location: Low Back/Lumbar Spine- Midline OBJECTIVE MEASURES WITH LEVEL OF FUNCTION: TREATMENT: Therapeutic Exercise: 1: seated scifit stepper, seat 13, level 2, 1:1 throughout, subjective collected 5 min 2: hook lying TA heel slides 60 sec 2 set 3: hook lying TA bent knee fall outs 60 sec 2 set 4: seated TA 4x10 5: *Access Code: [email or web address] URL: [email or web address]/ Date: 06/14/2025 Prepared by: Pamela Lyle Exercises - Seated Transversus Abdominis Bracing with PLB - 2 x daily - 7 x weekly - 4 sets - 10 reps - 1 hold - Seated March - 2 x daily - 7 x weekly - 2 sets - 30 reps - Seated Marching with Opposite Shoulder Flexion - 2 x daily - 7 x weekly - 2 sets - 30 reps Skilled Intervention: Patient was educated in proper exercise technique and purpose for exercises. Skilled judgment was used in selection of appropriate interventions. Provided written instruction for home exercise program to facilitate proper performance and compliance. Correct performance of therapeutic exercises was facilitated with verbal, visual, and tactile cuing. Educated patient on rationale for performing exercises in regards to decreasing fatigue , increase ease of ADL, and ROM and function . Billing Therapeutic Exercise Treatment Minutes: 40 Skilled Treatment Time Minutes (timed and untimed codes): 40 Total Session Time (minutes): 40 Session Start Time : 1456 Session Stop Time : 1536 Pamela Sorenson PT documented in this encounter [facility] 06-14-2025 Note HNO ID: [id number] Author: PAMELA SORENSON PT Service: ? Author Type: Physical Therapist Type: Progress Notes Filed: 06/14/2025 15:36 Note Text: Episode Visit Count: 3 Therapist That Will Accept/Oversee The Plan Of Care: Pamela Sorenson Start of Care Date: 05/10/25 Onset Date: 05/10/95 Plan of Care Certification Date: 11/19/21 Next Certification Due Date: 12/17/21 REHABILITATION AND SPORTS THERAPY PHYSICAL THERAPY TREATMENT NOTE ASSESSMENT: Brenda Villalobos tolerated the session with decreased symptoms. She demonstrated improvements in TA activation when given cues to tuck the tail bone under the pelvis. The patient will continue to benefit from ongoing skilled physical therapy to progress toward set goals. PLAN FOR NEXT VISIT: progress HEP to standing TA activation exercises. SUBJECTIVE: Pt. compliant with HEP which has been effective. Patient Goals: reduce LBP Functional Limitations: walking, bending (laying) Pain: Pain Pain Level: 0 Pain Location: Low Back/Lumbar Spine - Right Description: Stiffness Frequency: Continuous Post Treatment Pain Post Treatment Pain Level: 0 Post Treatment Pain Location: Low Back/Lumbar Spine- Midline OBJECTIVE MEASURES WITH LEVEL OF FUNCTION: TREATMENT: Therapeutic Exercise: 1: seated scifit stepper, seat 13, level 2, 1:1 throughout, subjective collected 5 min 2: hook lying TA heel slides 60 sec 2 set 3: hook lying TA bent knee fall outs 60 sec 2 set 4: seated TA 4x10 5: *Access Code: [email or web address] URL: [email or web address] m/ Date: 06/14/2025 Prepared by: Pamela Sorenson Exercises - Seated Transversus Abdominis Bracing with PLB - 2 x daily - 7 x weekly - 4 sets - 10 reps - 1 hold - Seated March - 2 x daily - 7 x weekly - 2 sets - 30 reps - Seated Marching with Opposite Shoulder Flexion - 2 x daily - 7 x weekly - 2 sets - 30 reps Skilled Intervention: Patient was educated in proper exercise technique and purpose for exercises. Skilled judgment was used in selection of appropriate interventions. Provided written instruction for home exercise program to facilitate proper performance and compliance. Correct performance of therapeutic exercises was facilitated with verbal, visual, and tactile cuing. Educated patient on rationale for performing exercises in regards to decreasing fatigue , increase ease of ADL, and ROM and function . Billing Therapeutic Exercise Treatment Minutes: 40 Skilled Treatment Time Minutes (timed and untimed codes): 40 Total Session Time (minutes): 40 Session Start Time : 1456 Session Stop Time : 1536 Pamela Sorenson, PT [facility] 06-14-2025 Telephone encounter Note Patient has been identified by name and date of : yes Patient phones for refill(s): Requested Prescriptions Pending Prescriptions Disp Refills WIXELA INHUB 250-50 mcg/dose inhaler 3 each 1 Sig: Inhale 1 puff as instructed two times a day. Date of last office visit in primary care: 04/20/2025 Date of next office visit in primary care: 08/15/2025 Please advise. Thank you. Jhoana Bernal MA. [facility] 06-14-2025 Miscellaneous Notes Patient has been identified by name and date of : yes Patient phones for refill(s): Requested Prescriptions Pending Prescriptions Disp Refills WIXELA INHUB 250-50 mcg/dose inhaler 3 each 1 Sig: Inhale 1 puff as instructed two times a day. Date of last office visit in primary care: 04/20/2025 Date of next office visit in primary care: 08/15/2025 Please advise. Thank you. Jhoana Bernal MA. Updated pt she should have additional refill at the Pharmacy. To update office if issues. Keli Nelson MA documented in this encounter [facility] 06-07-2025 History of Present illness Narrative Subjective Patient ID: Brenda Villalobos is a 55 y.o. female who presents for Follow-up (Pt presents today to follow up with the esophageal manometry test completed on 05/17. Pt states symptoms are still present daily, even during the night. Pt states nothing provides relief or makes them worse, that the pain is consistent and constant. ). YULIA Alex is seen today in follow-up for nonerosive GERD. Is failed omeprazole, Nexium and now Dexilant. Patient has undergone multiple endoscopies last being done by myself in October of this year showing nonerosive GERD. She underwent pH testing and manometry manometry showed no hiatal hernia normal esophageal function relaxation pH impedance was done on reflux and showed: Impressions: Overall this study shows is negative for acid reflux (study done on medications) There is some non-acid reflux There is positive symptom correlation (consider reflux hypersensitivity) Review of Systems Constitutional: Negative for chills, fever and unexpected weight change. HENT: Negative for congestion and trouble swallowing. Respiratory: Negative for cough, shortness of breath and wheezing. Cardiovascular: Negative for chest pain. Gastrointestinal: Negative for abdominal distention, abdominal pain, blood in stool, constipation, diarrhea, nausea and vomiting. Genitourinary: Negative for difficulty urinating. Musculoskeletal: Negative for arthralgias and joint swelling. Skin: Negative for color change. Neurological: Negative for dizziness, speech difficulty, light-headedness and headaches. Psychiatric/Behavioral: Negative for confusion and sleep disturbance. Objective Physical Exam Constitutional: General: She is awake. Appearance: Normal appearance. HENT: Head: Normocephalic and atraumatic. Mouth/Throat: Mouth: Mucous membranes are moist. Eyes: Extraocular Movements: Extraocular movements intact. Neck: Thyroid: No thyroid mass. Trachea: Phonation normal. Cardiovascular: Rate and Rhythm: Normal rate and regular rhythm. Heart sounds: Normal heart sounds. Pulmonary: Effort: Pulmonary effort is normal. No respiratory distress. Breath sounds: Normal air entry. No decreased breath sounds, wheezing, rhonchi or rales. Abdominal: General: Bowel sounds are normal. There is no distension. Palpations: Abdomen is soft. Tenderness: There is no abdominal tenderness. Musculoskeletal: Right lower leg: No edema. Left lower leg: No edema. Skin: General: Skin is warm. Neurological: General: No focal deficit present. Mental Status: She is alert and oriented to person, place, and time. Mental status is at baseline. Motor: Motor function is intact. Psychiatric: Attention and Perception: Attention and perception normal. Mood and Affect: Mood normal. Speech: Speech normal. Behavior: Behavior normal. Assessment/Plan Diagnoses and all orders for this visit: Gastroesophageal reflux disease without esophagitis - vonoprazan 20 mg tablet; Take 20 mg by mouth once daily for 20 days. Reviewed results discontinue Dexilant begin Foquest 9 sample 20 days followed by telephone for refills Clifford Rhoades DO 06/07/25 4:04 PM documented in this encounter [facility] Work Phone: 06-06-2025 Telephone encounter Note Updated pt she should have additional refill at the Pharmacy. To update office if issues. Keli Nelson MA [facility] 05-24-2025 History of Present illness Narrative Program_ID:[id number] Access Code: [email or web address] URL: [email or web address] m/ Date: 05-24-2025 Prepared By: Pamela Sorenson Program Notes Exercises - Hooklying Transversus Abdominis Palpation - 2 x daily - 7 x weekly - 4 sets - 5 reps - Seated Transversus Abdominis Bracing with PLB - 2 x daily - 7 x weekly - 2 sets - 5 reps - Supine Transversus Abdominis Bracing with Heel Slide - 2 x daily - 7 x weekly - 4 sets - 30 reps - Hooklying Small March - 2 x daily - 7 x weekly - 4 sets - 30 reps Episode Visit Count: 2 Therapist That Will Accept/Oversee The Plan Of Care: Pamela Sorenson Start of Care Date: 05/10/25 Onset Date: 05/10/95 Plan of Care Certification Date: 11/19/21 Next Certification Due Date: 12/17/21 REHABILITATION AND SPORTS THERAPY PHYSICAL THERAPY TREATMENT NOTE ASSESSMENT: Brenda Villalobos tolerated the session with some muscle spasms in the low back reported. She demonstrated difficulty with bent knee fall outs and this was dc due to complaints of muscle spasms. The patient will continue to benefit from ongoing skilled physical therapy to progress toward set goals. Current Frequency: 1x/week Planned Treatment Interventions: Gait Training (30561), Self-prison management (93526), Therapeutic activities (02878), Manual therapy (17116), Neuromuscular re-education (46426), Therapeutic exercise (25250) PLAN FOR NEXT VISIT: hook lying, seated, or standing TA. consider adding heel slides, bent knee fall outs, and marches in hooklying SUBJECTIVE: Back is just stiff, not necessarily painful. Patient Goals: reduce LBP Functional Limitations: walking, bending (laying) Spine History Symptoms Location at Onset: Back Pain is Worse Always: Lying, Bending, Standing, Walking Spine History - Cervical Symptoms Location at Onset: Back Pain: Pain Pain Level: 0 Pain Location: Low Back/Lumbar Spine - Right Description: Stiffness Frequency: Continuous Post Treatment Pain Post Treatment Pain Level: 3 Post Treatment Pain Location: Low Back/Lumbar Spine- Midline Post Treatment Pain Description: Aching OBJECTIVE MEASURES WITH LEVEL OF FUNCTION: TREATMENT: Therapeutic Exercise: 1: seated scifit stepper, seat 13, level 2, 1:1 throughout, subjective collected 5 min 2: hook lying TA activation 4x10 3: hook lying TA activation 4x5, 10 sec hold 55 cm physioball press down BUEs 4: hook lying TA activation 4x60 sec alt marches 5: hook lying TA activation 4x60 sec alt heel slides 6: hook lying TA activation with bent knee fall outs 2x60 sec 7: seated QL stretch 3x30 sec each side 8: seated piriformis stretch 3x30 sec each side Skilled Intervention: Patient was educated in proper exercise technique and purpose for exercises. Skilled judgment was used in selection of appropriate interventions. Correct performance of therapeutic exercises was facilitated with verbal, visual, and tactile cuing. Educated patient on rationale for performing exercises in regards to increase ease of ADL and ROM and function . Patient education as noted. Billing Therapeutic Exercise Treatment Minutes: 39 Skilled Treatment Time Minutes (timed and untimed codes): 39 Total Session Time (minutes): 39 Session Start Time : 1459 Session Stop Time : 1538 Pamela Sorenson PT documented in this encounter [facility] 05-24-2025 Note HNO ID: [id number] Author: PAMELA SORENSON, PT Service: ? Author Type: Physical Therapist Type: Progress Notes Filed: 05/24/2025 15:37 Note Text: Episode Visit Count: 2 Therapist That Will Accept/Oversee The Plan Of Care: Pamela Sorenson Start of Care Date: 05/10/25 Onset Date: 05/10/95 Plan of Care Certification Date: 11/19/21 Next Certification Due Date: 12/17/21 REHABILITATION AND SPORTS THERAPY PHYSICAL THERAPY TREATMENT NOTE ASSESSMENT: Brenda Villalobos tolerated the session with some muscle spasms in the low back reported. She demonstrated difficulty with bent knee fall outs and this was dc due to complaints of muscle spasms. The patient will continue to benefit from ongoing skilled physical therapy to progress toward set goals. Current Frequency: 1x/week Planned Treatment Interventions: Gait Training (86247), Self-prison management (19177), Therapeutic activities (19661), Manual therapy (92709), Neuromuscular re-education (35364), Therapeutic exercise (79844) PLAN FOR NEXT VISIT: hook lying, seated, or standing TA. consider adding heel slides, bent knee fall outs, and marches in hooklying SUBJECTIVE: Back is just stiff, not necessarily painful. Patient Goals: reduce LBP Functional Limitations: walking, bending (laying) Spine History Symptoms Location at Onset: Back Pain is Worse Always: Lying, Bending, Standing, Walking Spine History - Cervical Symptoms Location at Onset: Back Pain: Pain Pain Level: 0 Pain Location: Low Back/Lumbar Spine - Right Description: Stiffness Frequency: Continuous Post Treatment Pain Post Treatment Pain Level: 3 Post Treatment Pain Location: Low Back/Lumbar Spine- Midline Post Treatment Pain Description: Aching OBJECTIVE MEASURES WITH LEVEL OF FUNCTION: TREATMENT: Therapeutic Exercise: 1: seated scifit stepper, seat 13, level 2, 1:1 throughout, subjective collected 5 min 2: hook lying TA activation 4x10 3: hook lying TA activation 4x5, 10 sec hold 55 cm physioball press down BUEs 4: hook lying TA activation 4x60 sec alt marches 5: hook lying TA activation 4x60 sec alt heel slides 6: hook lying TA activation with bent knee fall outs 2x60 sec 7: seated QL stretch 3x30 sec each side 8: seated piriformis stretch 3x30 sec each side Skilled Intervention: Patient was educated in proper exercise technique and purpose for exercises. Skilled judgment was used in selection of appropriate interventions. Correct performance of therapeutic exercises was facilitated with verbal, visual, and tactile cuing. Educated patient on rationale for performing exercises in regards to increase ease of ADL and ROM and function . Patient education as noted. Billing Therapeutic Exercise Treatment Minutes: 39 Skilled Treatment Time Minutes (timed and untimed codes): 39 Total Session Time (minutes): 39 Session Start Time : 1459 Session Stop Time : 1538 Pamela Sorenson PT [facility] 05-17-2025 Hospital Discharge instructions Javon Silva RN - 05/17/2025 8:49 AM EDT You had an esophageal manometry and a 24 hour ph impedance test today. Please follow your printed instructions and return ttomorrow on 05/18 for a probe removal. documented in this encounter [facility] Work Phone: 05-10-2025 History of Present illness Narrative Program_ID:[id number] Access Code: [email or web address] URL: [email or web address] m/ Date: 05-10-2025 Prepared By: Pamela Sorenson Program Notes Exercises - Hooklying Transversus Abdominis Palpation - 2 x daily - 7 x weekly - 4 sets - 10 reps - Seated Transversus Abdominis Bracing with PLB - 2 x daily - 7 x weekly - 2 sets - 5 reps - Hooklying Gluteal Sets - 2 x daily - 7 x weekly - 2 sets - 5 reps Images from the original note were not included. Episode Visit Count: 1 Therapist That Will Accept/Oversee The Plan Of Care: Pamela Sorenson Start of Care Date: 05/10/25 Onset Date: 05/10/95 Plan of Care Certification Date: 11/19/21 Next Certification Due Date: 12/17/21 Patient Identified by Name and Date of : Yes REHABILITATION AND SPORTS THERAPY PHYSICAL THERAPY EVALUATION PLAN OF CARE: Assessment: Brenda Villalobos presents with diagnosis of acute bilateral low back pain with bilateral sciatica that interferes with walking, bending (laying) . The patient presents with impairments in ADL's, independence in exercise, joint mobility, overall function, patient reported outcome measures, posture, range of motion, strength, and symptom management. PROMIS (Patient-Reported Outcomes Measurement Information System) scores were reviewed and identified as a rehabilitation concern. Prognosis for therapy is Fair due to: chronic nature of impairments . The patient will benefit from skilled therapy services to meet the goals established for this plan of care as noted below. Classification Pain Mechanism Classification: Nociceptive Low Back Pain Classification: Movement Control Goals for Episode of Care: established 05/10/25 Independent in home exercises. Patient will decrease pain to 1-2/10 with functional activities to allow patient to improve ambulation, transfers, and standing tolerance for ADLs. Restore pain-free lumbar ROM to minimal to no limitation grossly to allow for ADLs. Maintain proper sitting posture throughout session Patient will be able to tolerate work activities for 6-8 hours without increased symptoms. Patient Goals: reduce LBP Time Frame for Goals and Treatment : 06/21/25 Planned Interventions, Frequency, and Duration: Current Frequency: 1x/week Duration: 6 weeks Total Number of Visits Planned: 6 Planned Treatment Interventions: Gait Training (62307), Self-prison management (38777), Therapeutic activities (55921), Manual therapy (27692), Neuromuscular re-education (35197), Therapeutic exercise (65960) PLAN FOR NEXT VISIT: hook lying, seated, or standing TA. consider adding heel slides, bent knee fall outs, and marches in hooklying Patient demonstrates good understanding of plan of care and treatment. The above goals and plan of care were discussed and agreed upon by patient/family. SUBJECTIVE: for B low back pain with radiating BLE numbness along the posterolateral hips and no distal than the knees. 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 Cancer Red Flags: Age >50 or <20 Cancer Clinical Reasoning: Proceed with caution Infection Clinical Reasoning: No identified risk factors. Cauda Equina Syndrome Clinical Reasoning: No identified risk factors. Red Flags - Cervical Cancer Red Flags: Age >50 or <20 Cancer Clinical Reasoning: Proceed with caution Infection Clinical Reasoning: No identified risk factors. Spine History Symptoms Location at Onset: Back Pain is Worse Always: Lying, Bending, Standing, Walking Pain is Better Always: (seated leaning to the R) Sleep Affected by Pain: (insomnia due to menopause) Pain: Pain Pain Level: 10 Pain Location: Low Back/Lumbar Spine - Right Description: Aching Frequency: Continuous Post Treatment Pain Post Treatment Pain Level: 7 Post Treatment Pain Location: Low Back/Lumbar Spine- Midline Post Treatment Pain Description: Aching PROMIS Scales 05/10/2025 Higher is Better Phys Func - T Score 41 (mild dysfunction) Phys Func - Percentile 18 Self-Eff Symptom - T Score 53 (Average) Self-Eff Symptom - Percentile 62 Proxy-reported T-Score and Percentile Interpretation T-scores: mean of general population = 50. 5 points is clinically meaningfully difference Percentiles provide an indication of how the patient's score ranks in relation to the general population. Higher percentile rankings indicate better function/quality of life. 50th percentile is the average of the general population and indicates half of respondents had a worse score. OBJECTIVE MEASURES WITH LEVEL OF FUNCTION: Posture / Alignment Sitting Posture: Sits on right ischial tuberosity, Slump Sensation - Lumbar Sensation: Grossly Intact Lumbar Spine AROM Lumbar Flexion: Minimal limitation, Produces, Peripheralizing Lumbar Extension: Minimal limitation, Centralizing (produces but not as bad as bending forward) Lumbar R Side Swatara: Moderate limitation Lumbar L Side Swatara: Produces, Moderate limitation Lumbar R Side-Bend: Normal Lumbar L Side-Bend: Normal Lumbar R Rotation: Normal Lumbar L Rotation: Normal Gait Gait: Independent Gait Distance (feet): 50 Gait Device: None Gait Deviations: General Deviations General Deviations/Observations: Flexed trunk posture Education: Education Learning Preferences: Demonstration, Explanation, Performance, Printed Materials Barriers: None Learning/educational needs: Home exercise program, Plan of Care, Posture TREATMENT: PT Treatment Interventions: Therapeutic Exercise, Self-Mcfp Management Evaluation Therapeutic Exercise: 1: *Access Code: [email or web address] URL: [email or web address] Date: 05/10/2025 Prepared by: Pamela Lyle Exercises - Hooklying Transversus Abdominis Palpation - 2 x daily - 7 x weekly - 4 sets - 10 reps - Seated Transversus Abdominis Bracing with PLB - 2 x daily - 7 x weekly - 2 sets - 5 reps - 10 hold - Hooklying Gluteal Sets - 2 x daily - 7 x weekly - 2 sets - 5 reps - 10 hold Skilled Intervention: Patient was educated in proper exercise technique and purpose for exercises. Skilled judgment was used in selection of appropriate interventions. Correct performance of therapeutic exercises was facilitated with verbal, visual, and tactile cuing. Educated patient on rationale for performing exercises in regards to decreasing fatigue , increase ease of ADL, and ROM and function . Patient education as noted. Self-Mcfp Management: 1: discussed the benefit of glute and TA isometrics 2: discussed reassignment of muscle groups -- reduce paraspinal strain while improving TA activation Skilled Intervention: Skilled judgment in the selection of proper modification for activity of daily living/home management based on clinical presentation, deficits, and needs. Provided written instruction for activities of daily living techniques to facilitate proper performance and compliance. Reviewed patient specific diagnosis in relation to activities of daily living/home management. Activity progression based on professional judgement. Provided written instruction for home program to facilitate proper performance and compliance. Billing * Evaluation Low Complexity: 1 Unit Therapeutic Exercise Treatment Minutes: 15 Self-Care/Home Management Treatment Minutes: 10 Skilled Treatment Time Minutes (timed and untimed codes): 40 Total Session Time (minutes): 40 Session Start Time : 1533 Session Stop Time : 1613 Pamela Sorenson PT documented in this encounter [facility] 05-10-2025 Note HNO ID: [id number] Author: PAMELA SORENSON, LUPE Service: ? Author Type: Physical Therapist Type: Progress Notes Filed: 05/10/2025 16:21 Note Text: Episode Visit Count: 1 Therapist That Will Accept/Oversee The Plan Of Care: Pamela Sorenson Start of Care Date: 05/10/25 Onset Date: 05/10/95 Plan of Care Certification Date: 11/19/21 Next Certification Due Date: 12/17/21 Patient Identified by Name and Date of : Yes REHABILITATION AND SPORTS THERAPY PHYSICAL THERAPY EVALUATION PLAN OF CARE: Assessment: Brenda Villalobos presents with diagnosis of acute bilateral low back pain with bilateral sciatica that interferes with walking, bending (laying) . The patient presents with impairments in ADL's, independence in exercise, joint mobility, overall function, patient reported outcome measures, posture, range of motion, strength, and symptom management. PROMIS? (Patient-Reported Outcomes Measurement Information System) scores were reviewed and identified as a rehabilitation concern. Prognosis for therapy is Fair due to: chronic nature of impairments . The patient will benefit from skilled therapy services to meet the goals established for this plan of care as noted below. Classification Pain Mechanism Classification: Nociceptive Low Back Pain Classification: Movement Control Goals for Episode of Care: established 05/10/25 Independent in home exercises. Patient will decrease pain to 1-2/10 with functional activities to allow patient to improve ambulation, transfers, and standing tolerance for ADLs. Restore pain-free lumbar ROM to minimal to no limitation grossly to allow for ADLs. Maintain proper sitting posture throughout session Patient will be able to tolerate work activities for 6-8 hours without increased symptoms. Patient Goals: reduce LBP Time Frame for Goals and Treatment : 06/21/25 Planned Interventions, Frequency, and Duration: Current Frequency: 1x/week Duration: 6 weeks Total Number of Visits Planned: 6 Planned Treatment Interventions: Gait Training (57839), Self-prison management (09786), Therapeutic activities (23644), Manual therapy (68751), Neuromuscular re-education (07131), Therapeutic exercise (43970) PLAN FOR NEXT VISIT: hook lying, seated, or standing TA. consider adding heel slides, bent knee fall outs, and marches in hooklying Patient demonstrates good understanding of plan of care and treatment. The above goals and plan of care were discussed and agreed upon by patient/family. SUBJECTIVE: for B low back pain with radiating BLE numbness along the posterolateral hips and no distal than the knees. 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 Cancer Red Flags: Age >50 or <20 Cancer Clinical Reasoning: Proceed with caution Infection Clinical Reasoning: No identified risk factors. Cauda Equina Syndrome Clinical Reasoning: No identified risk factors. Red Flags - Cervical Cancer Red Flags: Age >50 or <20 Cancer Clinical Reasoning: Proceed with caution Infection Clinical Reasoning: No identified risk factors. Spine History Symptoms Location at Onset: Back Pain is Worse Always: Lying, Bending, Standing, Walking Pain is Better Always: (seated leaning to the R) Sleep Affected by Pain: (insomnia due to menopause) Pain: Pain Pain Level: 10 Pain Location: Low Back/Lumbar Spine - Right Description: Aching Frequency: Continuous Post Treatment Pain Post Treatment Pain Level: 7 Post Treatment Pain Location: Low Back/Lumbar Spine- Midline Post Treatment Pain Description: Aching PROMIS Scales 05/10/2025 Higher is Better Phys Func - T Score 41 (mild dysfunction) Phys Func - Percentile 18 Self-Eff Symptom - T Score 53 (Average) Self-Eff Symptom - Percentile 62 Proxy-reported T-Score and Percentile Interpretation T-scores: mean of general population = 50. 5 points is clinically meaningfully difference Percentiles provide an indication of how the patient's score ranks in relation to the general population. Higher percentile rankings indicate better function/quality of life. 50th percentile is the average of the general population and indicates half of respondents had a worse score. OBJECTIVE MEASURES WITH LEVEL OF FUNCTION: Posture / Alignment Sitting Posture: Sits on right ischial tuberosity, Slump Sensation - Lumbar Sensation: Grossly Intact Lumbar Spine AROM Lumba (more content not included)... [facility] 2025 History of Present illness Narrative Subjective Patient ID: Brenda Villalobos is a 55 y.o. female who presents for Follow-up (Pt presents today as a follow up for reglan, which she hasn't been taking because her primary care doctor telling her to stop taking it. Pt states symptoms have worsened to the point that she's waking up every two hours with reflux like symptoms. Pt states symptoms are daily now regardless of medication or diet changes. Pt states she also experiences a large amount of abdominal pain daily. ). HPI she is an unfortunate 55-year-old female who presents today in follow-up for reflux disease. Underwent endoscopy in October 2024 revealing gastritis. No evidence of hiatal hernia no significant reflux was noted on study. Patient has been on multiple PPIs most recently Dexilant 60 mg daily. She has failed omeprazole, Protonix, and Nexium. She was given short-term prescription for Reglan to see if it would improve symptoms but did not begin therapy at the advice of her primary doctor as he was concerned would have side effects with her depression therapy. She presents today with complaints of persistent reflux she states that whenever she eats she feels it come back up in her distal esophagus she denies any foreign body. She admits to feeling a lump in her suprasternal notch. She denies any melena. She describes the pain as reflux but then complains she feels a cramp or spasm in her subxiphoid region this will happen independent of meals. Review of Systems Constitutional: Negative. HENT: Negative. Eyes: Negative. Respiratory: Negative. Cardiovascular: Negative. Gastrointestinal: Positive for abdominal pain and nausea. Endocrine: Negative. Genitourinary: Negative. Neurological: Negative. Hematological: Negative. Objective Physical Exam Constitutional: General: She is awake. Appearance: Normal appearance. HENT: Head: Normocephalic and atraumatic. Nose: Nose normal. Mouth/Throat: Mouth: Mucous membranes are moist. Eyes: Pupils: Pupils are equal, round, and reactive to light. Neck: Thyroid: No thyroid mass. Trachea: Phonation normal. Cardiovascular: Rate and Rhythm: Normal rate and regular rhythm. Heart sounds: Normal heart sounds. Pulmonary: Effort: Pulmonary effort is normal. No respiratory distress. Breath sounds: Normal air entry. No decreased breath sounds, wheezing, rhonchi or rales. Abdominal: General: Bowel sounds are normal. There is no distension. Palpations: Abdomen is soft. Tenderness: There is no abdominal tenderness. Musculoskeletal: Cervical back: Neck supple. Right lower leg: No edema. Left lower leg: No edema. Skin: General: Skin is warm. Capillary Refill: Capillary refill takes less than 2 seconds. Neurological: General: No focal deficit present. Mental Status: She is alert and oriented to person, place, and time. Mental status is at baseline. Cranial Nerves: Cranial nerves 2-12 are intact. Motor: Motor function is intact. Psychiatric: Attention and Perception: Attention and perception normal. Mood and Affect: Mood normal. Speech: Speech normal. Behavior: Behavior normal. 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 Given her nonresponse multiple PPI therapy. Recommend pH manometry testing to evaluate for structural disease rule out significant reflux or hiatal hernia follow-up after same. Clifford Rhoades DO 05/03/25 3:22 PM documented in this encounter [facility] Work Phone: 05-02-2025 Telephone encounter Note Patient notified of results and provider's instructions. Patient verbalizes understanding. Francisco Carver LPN [facility] 05-02-2025 Miscellaneous Notes Patient notified of results and provider's instructions. Patient verbalizes understanding. Francisco Carver LPN Let patient know that her xray is similar to previous xray. Shows degenerative changes. Continue as discused with dr. Logan. documented in this encounter [facility] 05-02-2025 Telephone encounter Note Let patient know that her xray is similar to previous xray. Shows degenerative changes. Continue as discused with dr. Logan. [facility] Work Phone: 04-20-2025 Telephone encounter Note The following approved medication requests have been transmitted electronically. Requested Prescriptions Signed Prescriptions Disp Refills SPIRIVA WITH HANDIHALER 18 mcg inhalation capsule 90 capsule 1 Sig: Inhale 1 capsule as instructed once daily. Authorizing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 showed significant reflux. Currently symptomatic with postprandial bloating and nausea feeling full following meals persistent reflux at night. Has changed diet with no improvement. Continues to smoke Review of Systems Constitutional: Negative. HENT: Negative. Eyes: Negative. Respiratory: Negative. Cardiovascular: Negative. Gastrointestinal: Positive for abdominal pain and nausea. Endocrine: Negative. Genitourinary: Negative. Neurological: Negative. Hematological: Negative. Objective Physical Exam Constitutional: General: She is awake. Appearance: Normal appearance. HENT: Head: Normocephalic and atraumatic. Nose: Nose normal. Mouth/Throat: Mouth: Mucous membranes are moist. Eyes: Pupils: Pupils are equal, round, and reactive to light. Neck: Thyroid: No thyroid mass. Trachea: Phonation normal. Cardiovascular: Rate and Rhythm: Normal rate and regular rhythm. Heart sounds: Normal heart sounds. Pulmonary: Effort: Pulmonary effort is normal. No respiratory distress. Breath sounds: Normal air entry. No decreased breath sounds, wheezing, rhonchi or rales. Abdominal: General: Bowel sounds are normal. There is no distension. Palpations: Abdomen is soft. Tenderness: There is no abdominal tenderness. Musculoskeletal: Cervical back: Neck supple. Right lower leg: No edema. Left lower leg: No edema. Skin: General: Skin is warm. Capillary Refill: Capillary refill takes less than 2 seconds. Neurological: General: No focal deficit present. Mental Status: She is alert and oriented to person, place, and time. Mental status is at baseline. Cranial Nerves: Cranial nerves 2-12 are intact. Motor: Motor function is intact. Psychiatric: Attention and Perception: Attention and perception normal. Mood and Affect: Mood normal. Speech: Speech normal. Behavior: Behavior normal. Assessment/Plan Diagnoses and all orders for this visit: Gastroesophageal reflux disease without esophagitis - metoclopramide (Reglan) 5 mg tablet; Take 1 tablet (5 mg) by mouth 4 times a day. Recommend therapeutic trial of Reglan. Begin 5 mg twice daily increase to 4 times daily if symptoms persist follow-up by telephone in 1 month to report symptom progress. If no improvement may need to consider increasing dosing or escalating therapy and adding Carafate back. Clifford Rhoades DO 03/10/25 3:59 PM documented in this encounter [facility] Work Phone: 02-21-2025 Telephone encounter Note MC Message sent per patient request for reference. In reference to TE 02/21/2025. Saad Kessler RN [facility] 02-21-2025 Miscellaneous Notes MC Message sent per patient request for reference. In reference to TE 02/21/2025. Saad Kessler RN documented in this encounter [facility] 02-21-2025 Telephone encounter Note Patient calls and notified of results and providers instructions. Patient verbalizes understanding. Sending provider response to patient in a MC message for reference. Saad Kessler RN [facility] 02-21-2025 Miscellaneous Notes Patient calls and notified of results and providers instructions. Patient verbalizes understanding. Sending provider response to patient in a MC message for reference. Saad Kessler RN Left message for patient to contact office. Jd Toscano MA Let patient know her blood work shows she is anemic again. Iron level is low, B12 is low. Find out what scope she had done by the gastro provider in [place] (stomach, lower or both)? Advise her to start taking Slo Fe one every other day along with 500 mg of Vit C every other day. Advise her to get back on the B12 1000 mcg one a day and stay on it please. Electrolyte panel, LFT's and renal functions ok except her sodium is low. Will fax order to [facility] to get sodium rechecked. (Need order sheet) Her thyroid lab is very high indicating that she is not getting enough levothyroxine. This can be the reason for the gland being enlarged on the right. I'm sending in a new script for levothyroxine 100 mcg to take one every day. Will need separate order to fax to [facility] for her to get the TSH rechecked in 2 months. The thyroid US showed no nodules. Just enlarged gland on the right. Folate was ok. Lipid panel was ok except HDL slightly low at 41 (goal>50) exercise can help raise this. documented in this encounter [facility] 02-21-2025 Telephone encounter Note Left message for patient to contact office. Jd Toscano MA [facility] 02-21-2025 Telephone encounter Note Let patient know her blood work shows she is anemic again. Iron level is low, B12 is low. Find out what scope she had done by the gastro provider in [place] (stomach, lower or both)? Advise her to start taking Slo Fe one every other day along with 500 mg of Vit C every other day. Advise her to get back on the B12 1000 mcg one a day and stay on it please. Electrolyte panel, LFT's and renal functions ok except her sodium is low. Will fax order to [facility] to get sodium rechecked. (Need order sheet) Her thyroid lab is very high indicating that she is not getting enough levothyroxine. This can be the reason for the gland being enlarged on the right. I'm sending in a new script for levothyroxine 100 mcg to take one every day. Will need separate order to fax to [facility] for her to get the TSH rechecked in 2 months. The thyroid US showed no nodules. Just enlarged gland on the right. Folate was ok. Lipid panel was ok except HDL slightly low at 41 (goal>50) exercise can help raise this. [facility] 02-11-2025 History of Present illness Narrative Radiology Service Progress Note PATIENT NAME: Brenda Villalobos DATE OF SERVICE: February 11, 2025 TIME: 3:18 PM PATIENT IDENTITY VERIFICATION COMPLETED USING TWO (2) IDENTIFIERS: Name and Date of confirmed by patient verbally. FALL SCREENING: Has the patient had 2 falls in the last year or 1 fall with injury or currently using an Ambulatory Assistive Device (Walker, Cane, Wheelchair, Crutches, etc.)? No PATIENT GENDER DATA: Assigned female at . status: : No status: NO. PATIENT RELEVANT IMPLANT DATA REVIEWED: Not Applicable PATIENT PRESENTS WITH AN IMPLANTABLE OR ATTACHED BRICK GRADER: No RADIOLOGY DEPARTMENT: Ultrasound PERIPHERAL IV DATA: Not applicable SIGNED BY: Pamela Fabian RDMS RVT February 11, 2025 3:18 PM documented in this encounter [facility] 02-11-2025 Note HNO ID: [id number] Author: PAMELA FABIAN RDMS Service: ? Author Type: Air Twist Operator Type: Progress Notes Filed: 02/11/2025 15:18 Note Text: Radiology Service Progress Note PATIENT NAME: Brenda Villalobos DATE OF SERVICE: February 11, 2025 TIME: 3:18 PM PATIENT IDENTITY VERIFICATION COMPLETED USING TWO (2) IDENTIFIERS: Name and Date of confirmed by patient verbally. FALL SCREENING: Has the patient had 2 falls in the last year or 1 fall with injury or currently using an Ambulatory Assistive Device (Walker, Cane, Wheelchair, Crutches, etc.)? No PATIENT GENDER DATA: Assigned female at . status: : No status: NO. PATIENT RELEVANT IMPLANT DATA REVIEWED: Not Applicable PATIENT PRESENTS WITH AN IMPLANTABLE OR ATTACHED BRICK GRADER: No RADIOLOGY DEPARTMENT: Ultrasound PERIPHERAL IV DATA: Not applicable SIGNED BY: Pamela Fabian RDMS RVT February 11, 2025 3:18 PM [facility] 02-09-2025 Telephone encounter Note The following approved medication requests have been transmitted electronically. Requested Prescriptions Signed Prescriptions Disp Refills WIXELA INHUB 250-50 mcg/dose inhaler 3 each 1 Sig: Inhale 1 puff as instructed two times a day. Authorizing Provider: FORTINO LOGAN MD [facility] 02-09-2025 Miscellaneous Notes The following approved medication requests have been transmitted electronically. Requested Prescriptions Signed Prescriptions Disp Refills WIXELA INHUB 250-50 mcg/dose inhaler 3 each 1 Sig: Inhale 1 puff as instructed two times a day. Authorizing Provider: FORTINO LOGAN MD Received fax from [employer] insurance will not cover Advair. Preferred alternative Fluticasone salmeterol, [email or web address] See fax on PCP desk. Jd Toscano MA documented in this encounter [facility] 02-09-2025 Telephone encounter Note Received fax from [employer] insurance will not cover Advair. Preferred alternative Fluticasone salmeterol, [email or web address] See fax on PCP desk. Jd Toscano MA [facility] 02-08-2025 History of Present illness Narrative Chief Complaint Patient presents with: Follow Up HPI Brenda Villalobos is a 54 year old female who presents here today for 6 month follow up. Patient with COPD, dyslipidemia, hypothyroidism, insomnia, elevated fasting blood sugar, smoker, GERD, MURIEL, Depression, Vit D def and Vit B12 def as well as those reviewed and addressed below and in ROS. Patient doing ok. Prozac no longer helping like it had been. Patient has not been taking her B12 but has been taking her Vit D. Patient did have a scope in Oct 2024 per Gastro in [place] and was started on Dexlansoprazole 60 mg daily and told to f/u if needed. There was no subsequent f/u to see if her symptoms were improved or continuing. Patient says her GERD is only slightly improved Still getting the acid reflex daily. Still has the chronic epigastric pain. Has sinus headache's daily over the frontal sinuses and the back of her head. Wakes up with them. Is tired most days. Is a snore. Possible witnessed apnea Not aware if anybody in her family has migraine issues. Past medical history, appointments, medications, allergies reviewed. 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 Has been on omeprazole, pantoprazole and prevacid with no relief of symptoms. Nexium has been helpful and dexalant Insomnia 04/12/2014 OA (osteoarthrosis) 05/18/2021 Post-menopausal Situational depression 04/19/2020 Smoker 08/12/2013 Started at the age of 11 up to 1.5 PPD Spastic bladder 10/23/2018 Varicose veins of bilateral lower extremities with other complications 04/19/2020 bleeding at times Vitamin B12 deficiency 10/25/2020 Vitamin D deficiency Well adult exam 04/17/2016 last done: 04/19/20 Previous Surgical History PAST SURGICAL HISTORY Procedure Laterality Date 48 HOUR PH STUDY 09/13/2021 Demeester score-28.6; Dr. Gresham EGD TRANSORAL BIOPSY SINGLE/MULTIPLE 05/27/2016 EGD WITH BIOPSY(S) 09/13/2021 Dr. Gresham ESOPHAGOGASTRODUODENOSCOPY TRANSORAL DIAGNOSTIC 03/16/2020 OFFICE LEEP 2001 TOTAL ABDOMINAL HYSTERECT W/WO RMVL TUBE OVARY Bilateral 2002 bso Family History FAMILY HISTORY Problem Relation Age of Onset COPD Mother Heart Mother Thyroid Mother Hypertension Mother Kidney Disease Mother Kidney failure Asthma Mother Breast Cancer Mother Seizures Brother Coronary Artery Disease Maternal Grandmother Thyroid Daughter Diabetes Son Type 1 Hypertension Son Asthma Son Alzheimer's Disease Paternal Uncle Prostate Cancer Paternal Uncle Ovarian cancer No Family History Colon Cancer No Family History Hyperlipidemia No Family History Stroke No Family History Patient Allergies ALLERGIES Allergen Reactions Medrol Dose Pack [M* Swelling Swelling of throat Bactrim [Sulfametho* Itching Carafate [Sucralfat* Other: See Comments Made her constipated Morphine Itching Trimethoprim Other: See Comments, Unknown Zoloft [Sertraline] Other: See Comments Chest felt heavy. Current Medications Current Outpatient Medications on File Prior to Visit Medication Sig Hkezhktrvpgjrwb-Lpfivayaj-FO (BROMFED DM) 2-30-10 mg/5 mL syrup Take 5 mL by mouth four times a day as needed. FLUoxetine (PROZAC) 40 mg capsule Take 1 capsule by mouth two times a day. levothyroxine (SYNTHROID) 88 mcg tablet Take one tab by mouth daily.Friday -Friday and none on Friday. fluticasone (FLONASE) 50 mcg/actuation nasal spray Use 2 Sprays in each nostril once daily. Rinse mouth after use. fluticasone-salmeterol (ADVAIR DISKUS) 250-50 mcg/dose inhaler Inhale 1 Puff as instructed two times a day. Rinse and gargle mouth after use with water. tiotropium (SPIRIVA) 18 mcg inhalation capsule Inhale 1 capsule as instructed once daily. Dexlansoprazole 60 mg CpDM Take 60 mg by mouth one time only. SENOKOT 8.6 mg tab Take 1 tablet by mouth two times a day. albuterol (PROVENTIL) 2.5 mg /3 mL (0.083 %) nebulizer solution Use 3 mL via nebulizer every 6 hours as needed for wheezing/shortness of breath. Use over 5-15minutes. albuterol HFA (PROAIR HFA) 90 mcg/actuation inhaler USE 2 INHALATIONS EVERY 6 HOURS INSTRUCTED NEEDED ipratropium-albuterol (DUONEB) 0.5 mg-3 mg(2.5 mg base)/3 mL nebu Inhale 3 mL as instructed two times a day. Cholecalciferol, Vitamin D3, 50 mcg (2,000 unit) cap Take 1 capsule by mouth once daily. cyanocobalamin (VITAMIN B-12) 1,000 mcg tab Take 1 tablet by mouth once daily. ergocalciferol, vitamin D2, (VITAMIN D2 ORAL) Take by mouth. No current facility-administered medications on file prior to visit. Social History Social History Tobacco Use Smoking status: Every Day Current packs/day: 0.50 Average packs/day: 0.5 packs/day for 43.8 years (21.9 ttl pk-yrs) Types: Cigarettes Start date: 1981 Smokeless tobacco: Never Tobacco comments: Both parents smoked in childhood home. 1st AM cigarette within 5 minutes of waking up. 01/30/16. TO Vaping Use Vaping status: Never Used Substance Use Topics Alcohol use: No Drug use: No Review of Symptoms REVIEW OF SYSTEMS GENERAL: No weight loss, malaise or fevers. HEENT: no significant nasal discharge. Has chronic post nasal drainage, o ear pain NECK: Negative for lumps, goiter, pain and significant neck swelling RESPIRATORY: Negative for cough, hemoptysis, increased wheezing, COPD, dyspnea or shortness of breath. Feels branded Advair helped more then the generic. CARDIOVASCULAR: Negative for chest pain, leg swelling, hypertension, CHF or palpitations GI: No vomiting, or diarrhea and See HPI. Nauseate all the time. PSYCH: anxiety has been worse. ENDOCRINE: Negative for cold or heat intolerance, polyuria, polydipsia and goiter NEURO: No history of syncope, paralysis, seizures or tremors EXAM: BP 132/96 Pulse 87 Resp 20 Wt 59.4 kg (131 lb) SpO2 96% BMI 23.58 kg/m BP 146/94 Pulse 87 Resp 20 Wt 59.4 kg (131 lb) SpO2 96% BMI 23.58 kg/m Last 5 Encounter Wt Readings: Date: Wt: 02/08/2025 59.4 kg (131 lb) 12/31/2024 59 kg (130 lb 1.1 oz) 12/24/2024 59.4 kg (130 lb 15.3 oz) 11/12/2024 62.1 kg (137 lb) 10/08/2024 59 kg (130 lb) General Appearance: Well appearing, alert, in no acute distress, well-hydrated, well nourished.. Ears: External ears normal, canals clear. Nose/Sinuses: Nares normal, septum deviated, mucosa normal, no drainage or sinus tenderness. Oropharynx: Lips, mucosa, and tongue normal, teeth and gums normal, oropharynx normal. Neck: Supple, no adenopathy; thyroid is enlarged on the right and tender. Lungs: Lungs clear to auscultation. No wheezing, rhonchi, rales.. Heart: RRR without murmur, gallop, or rubs. No ectopy. Abdomen: Abdomen soft, non-distended with her typical epigastric tenderness. Bowel sounds normal. No masses, organomegaly. Extremities: No deformities, edema, Peripheral Pulses: Normal. Neurologic: Gait normal. Sensation grossly intact.. Health Maintenance List Pneumococcal Vaccine: 50+(1 of 2 - PCV) Never done Mammogram Screening due on 05/13/2020 Annual PCP Team Chronic Disease Visit due on 01/04/2026 Diabetes Screening due on 12/03/2026 Colorectal Cancer Screening due on 08/15/2027 DTaP,Tdap,Td Vaccine(2 - Td or Tdap) due on 04/22/2028 Lipid Screening due on 12/03/2028 Hepatitis B Vaccine Discontinued Lung Cancer Screening Discontinued Cervical Cancer Screening Discontinued Influenza Vaccine Discontinued Hepatitis C Screening Discontinued HIV Screening Discontinued Shingrix Vaccine Discontinued Covid-19 Vaccine Discontinued Data reviewed A/P ASSESSMENT/PLAN: 1. Dyslipidemia - ICD9: 272.4, ICD10: E78.5 (primary diagnosis) - Control undetermined, due for labs - Counseled on healthy diet and regular exercise - COMPREHENSIVE METABOLIC PANEL - LIPID PANEL, NONFASTING 2. Acquired hypothyroidism - ICD9: 244.9, ICD10: E03.9 - Instructed patient on importance of taking on an empty stomach either first thing in the morning or at bedtime. - continue current dose of Synthroid Check - COMPLETE BLOOD COUNT AND DIFFERENTIAL - THYROID STIMULATING HORMONE 3. Elevated fasting blood sugar - ICD9: 790.21, ICD10: R73.01 - has been controlled with diet. 4. COPD with asthma (HCC) - ICD9: 493.20, ICD10: J44.89 - Moderate persistent asthma stable - Continue current medications - Avoidance of triggers recommended - ADVAIR DISKUS 250 MCG-50 MCG/DOSE POWDER FOR INHALATION 5. Gastroesophageal reflux disease with esophagitis without hemorrhage - ICD9: 530.81, 530.10, ICD10: K21.00 - Continue treatment with Dexlansoprazole 60 mg QD - patient had EGD per gastro back in October 2024. She was started on Dexlansoprzole at that time but no f/u was set up to see if she was having any benefit from the Tx. Patient continues to have Daily GERD symptoms with marginal improvement and still has significant epigastric pain daily along with nausea. Will send copy of office note to update gastro provider. . 6. MURIEL (generalized anxiety disorder) - ICD9: 300.02, ICD10: F41.1 - uncontrolled. Will ad on Wellbutrin SR 100 mg day for 2 weeks then one twice day. 7. Situational depression - ICD9: 309.0, ICD10: F43.21 - as per #6 8. Primary insomnia - ICD9: 307.42, ICD10: F51.01 - will see if med change helps. 9. Smoker - ICD9: 305.1, ICD10: F17.200 - Cessation encouraged. - Counseling was given focusing on the harmful effects of this addiction especially given the patient's medical condition(s) which will be worsened because of the chemicals in tobacco. 10. Vitamin B12 deficiency - ICD9: 266.2, ICD10: E53.8 Check - VITAMIN B12 11. Vitamin D deficiency - ICD9: 268.9, ICD10: E55.9 - cont replacement 12. Other constipation - ICD9: 564.09, ICD10: K59.09 - cont Sen[place]ot. 13. Anemia, unspecified type - ICD9: 285.9, ICD10: D64.9 Check - COMPLETE BLOOD COUNT AND DIFFERENTIAL - FOLATE, SERUM - FERRITIN - IRON AND TIBC 14. Mass of thyroid gland - ICD9: 246.9, ICD10: E07.9 Check - US THYROID/PARATHYROID 15. Hypersomnolence - ICD9: 780.54, ICD10: G47.10 Check - POLYSOMNOGRAM (PSG) 16. Snores - ICD9: 786.09, ICD10: R06.83 Check - POLYSOMNOGRAM (PSG) 17. Witnessed episode of apnea - ICD9: 786.03, ICD10: R06.81 Check - POLYSOMNOGRAM (PSG) Requested Prescriptions Signed Prescriptions Disp Refills SENOKOT 8.6 mg tab 180 tablet 1 Sig: Take 1 tablet by mouth two times a day. ADVAIR DISKUS 250-50 mcg/dose inhaler 3 each 1 Sig: Inhale 1 puff as instructed two times a day. Rinse and gargle mouth after use with water. buPROPion SR (WELLBUTRIN SR) 100 mg 12 hr tablet 180 tablet 1 Sig: Take one tab by mouth daily for two weeks and then go to taking one tablet twice a day. F/u 6 weeks, depression and anxiety. F/u 6 months WAE check labs at that time. I spent a total of 43 minutes on the date of the service which included preparing to see the patient, [id number] patient care, completing clinical documentation, performing a medically appropriate examination, counseling and educating the patient/family/caregiver and ordering medications, tests, or procedures. Fortino Logan MD documented in this encounter [facility] 02-08-2025 Note HNO ID: [id number] Author: FORTINO LOGAN MD Service: ? Author Type: Physician Type: Progress Notes Filed: 02/08/2025 16:05 Note Text: Chief Complaint Patient presents with: Follow Up HPI Brenda Villalobos is a 54 year old female who presents here today for 6 month follow up. Patient with COPD, dyslipidemia, hypothyroidism, insomnia, elevated fasting blood sugar, smoker, GERD, MURIEL, Depression, Vit D def and Vit B12 def as well as those reviewed and addressed below and in ROS. Patient doing ok. Prozac no longer helping like it had been. Patient has not been taking her B12 but has been taking her Vit D. Patient did have a scope in Oct 2024 per Gastro in [place] and was started on Dexlansoprazole 60 mg daily and told to f/u if needed. There was no subsequent f/u to see if her symptoms were improved or continuing. Patient says her GERD is only slightly improved Still getting the acid reflex daily. Still has the chronic epigastric pain. Has sinus headache's daily over the frontal sinuses and the back of her head. Wakes up with them. Is tired most days. Is a snore. Possible witnessed apnea Not aware if anybody in her family has migraine issues. Past medical history, appointments, medications, allergies reviewed. 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 Has been on omeprazole, pantoprazole and prevacid with no relief of symptoms. Nexium has been helpful and dexalant Insomnia 04/12/2014 OA (osteoarthrosis) 05/18/2021 Post-menopausal Situational depression 04/19/2020 Smoker 08/12/2013 Started at the age of 11 up to 1.5 PPD Spastic bladder 10/23/2018 Varicose veins of bilateral lower extremities with other complications 04/19/2020 bleeding at times Vitamin B12 deficiency 10/25/2020 Vitamin D deficiency Well adult exam 04/17/2016 last done: 04/19/20 Previous Surgical History PAST SURGICAL HISTORY Procedure Laterality Date 48 HOUR PH STUDY 09/13/2021 Demeester score-28.6; Dr. Gresham EGD TRANSORAL BIOPSY SINGLE/MULTIPLE 05/27/2016 EGD WITH BIOPSY(S) 09/13/2021 Dr. Gresham ESOPHAGOGASTRODUODENOSCOPY TRANSORAL DIAGNOSTIC 03/16/2020 OFFICE LEEP 2001 TOTAL ABDOMINAL HYSTERECT W/WO RMVL TUBE OVARY Bilateral 2002 bso Family History FAMILY HISTORY Problem Relation Age of Onset COPD Mother Heart Mother Thyroid Mother Hypertension Mother Kidney Disease Mother Kidney failure Asthma Mother Breast Cancer Mother Seizures Brother Coronary Artery Disease Maternal Grandmother Thyroid Daughter Diabetes Son Type 1 Hypertension Son Asthma Son Alzheimer's Disease Paternal Uncle Prostate Cancer Paternal Uncle Ovarian cancer No Family History Colon Cancer No Family History Hyperlipidemia No Family History Stroke No Family History Patient Allergies ALLERGIES Allergen Reactions Medrol Dose Pack [M* Swelling Swelling of throat Bactrim [Sulfametho* Itching Carafate [Sucralfat* Other: See Comments Made her constipated Morphine Itching Trimethoprim Other: See Comments, Unknown Zoloft [Sertraline] Other: See Comments Chest felt heavy. Current Medications Current Outpatient Medications on File Prior to Visit Medication Sig Iahhwsonmhyrebf-Tqjjplydq-RV (BROMFED DM) 2-30-10 mg/5 mL syrup Take 5 mL by mouth four times a day as needed. FLUoxetine (PROZAC) 40 mg capsule Take 1 capsule by mouth two times a day. levothyroxine (SYNTHROID) 88 mcg tablet Take one tab by mouth daily.Friday -Friday and none on Friday. fluticasone (FLONASE) 50 mcg/actuation nasal spray Use 2 Sprays in each nostril once daily. Rinse mouth after use. fluticasone-salmeterol (ADVAIR DISKUS) 250-50 mcg/dose inhaler Inhale 1 Puff as instructed two times a day. Rinse and gargle mouth after use with water. tiotropium (SPIRIVA) 18 mcg inhalation capsule Inhale 1 capsule as instructed once daily. Dexlansoprazole 60 mg CpDM Take 60 mg by mouth one time only. SENOKOT 8.6 mg tab Take 1 tablet by mouth two times a day. albuterol (PROVENTIL) 2.5 mg /3 mL (0.083 %) nebulizer solution Use 3 mL via nebulizer every 6 hours as needed for wheezing/shortness of breath. Use over 5-15minutes. albuterol HFA (PROAIR HFA) 90 mcg/actuation inhaler USE 2 INHALATIONS EVERY 6 HOURS INSTRUCTED NEEDED ipratropium-albuterol (DUONEB) 0.5 mg-3 mg(2.5 mg base)/3 mL nebu Inhale 3 mL as instructed (more content not included)... [facility] 02-01-2025 Note Patient Outreach (FA MPWS) ---- BRENDA VILLALOBOS ([id number]) 1970 F Date Time Provider Department 02/01/25 FORTINO LOGAN During your visit today, we recorded the following information about you: Allergies As of Date: 02/01/2025 Noted Allergy Reaction MEDROL DOSE PACK (METHYLPREDNISOL*01/31/2017 7 - Swelling Comments: Swelling of throat BACTRIM (SULFAMETHOXAZOLE) 08/12/2013 9 - Itching CARAFATE (SUCRALFATE) 05/31/2024 14 - Other: See Comments Comments: Made her constipated MORPHINE 08/12/2013 9 - Itching TRIMETHOPRIM 03/12/2019 14 - Other: See Comments 16 - Unknown ZOLOFT (SERTRALINE) 04/19/2020 14 - Other: See Comments Comments: Chest felt heavy. Date Reviewed: 01/04/2025 Reviewed by: Fortino Logan MD - Fully Assessed Visit Diagnosis:Encounter for screening mammogram for breast cancer [Z12.31] Order(s):[facility] SCREENING W HA [0250101] Order #: [id number] FUTURE Prescriptions as of 03/04/2025 - ferrous sulfate (SLOW FE) 137 mg (45 mg iron) TbER Take 1 tablet by mouth every other day. - ascorbic acid, vitamin C, (VITAMIN C) 500 mg tablet Take 1 tablet by mouth every other day. - levothyroxine (SYNTHROID) 100 mcg tablet Take one tab by mouth daily.Friday -Friday and none on Friday. - WIXELA INHUB 250-50 mcg/dose inhaler Inhale 1 puff as instructed two times a day. - SENOKOT 8.6 mg tab Take 1 tablet by mouth two times a day. - buPROPion SR (WELLBUTRIN SR) 100 mg 12 hr tablet Take one tab by mouth daily for two weeks and then go to taking one tablet twice a day. - FLUoxetine (PROZAC) 40 mg capsule Take 1 capsule by mouth two times a day. - tiotropium (SPIRIVA) 18 mcg inhalation capsule Inhale 1 capsule as instructed once daily. - Dexlansoprazole 60 mg CpDM Take 60 mg by mouth one time only. - albuterol (PROVENTIL) 2.5 mg /3 mL (0.083 %) nebulizer solution Use 3 mL via nebulizer every 6 hours as needed for wheezing/shortness of breath. Use over 5-15minutes. - albuterol HFA (PROAIR HFA) 90 mcg/actuation inhaler USE 2 INHALATIONS EVERY 6 HOURS INSTRUCTED NEEDED - ipratropium-albuterol (DUONEB) 0.5 mg-3 mg(2.5 mg base)/3 mL nebu Inhale 3 mL as instructed two times a day. - Cholecalciferol, Vitamin D3, 50 mcg (2,000 unit) cap Take 1 capsule by mouth once daily. - cyanocobalamin (VITAMIN B-12) 1,000 mcg tab Take 1 tablet by mouth once daily. - ergocalciferol, vitamin D2, (VITAMIN D2 ORAL) Take by mouth. Problem List As Of Date 02/01/2025 Noted Resolved Post-menopausal [Z78.0] COPD with asthma (HCC) [J44.89] Vitamin D deficiency [E55.9] Smoker [F17.200] 08/12/2013 Allergic rhinitis [J30.9] 09/03/2013 Insomnia [G47.00] 04/12/2014 Acquired hypothyroidism [E03.9] 04/25/2015 Constipation [K59.00] 08/23/2015 Encounter for gynecological examination without*04/17/2016 Well adult exam [Z00.00] 04/17/2016 Gastro-esophageal reflux disease with esophagit*10/18/2016 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] 10/18/2016 Encounter for screening for cardiovascular diso*10/18/2016 07/27/2024 Encounter for screening for diabetes mellitus [*10/18/2016 Elevated fasting blood sugar [R73.01] 04/18/2017 Encounter for screening mammogram for breast ca*04/22/2018 Dyslipidemia [E78.5] 04/22/2018 Spastic bladder [N32.89] 10/23/2018 Situational depression [F43.21] 04/19/2020 Varicose veins of bilateral lower extremities w*04/19/2020 Medication management [Z79.899] 04/19/2020 Vitamin B12 deficiency [E53.8] 10/25/2020 MURIEL (generalized anxiety disorder) [F41.1] 05/18/2021 Screening for colon cancer [Z12.11] 05/18/2021 OA (osteoarthrosis) [M19.90] 05/18/2021 Bilateral groin pain [R10.31, R10.32] 06/04/2023 Bilateral hip pain [M25.551, M25.552] 06/04/2023 Encounter Status:Closed by EPIC, PRODUSER on 03/04/25 [facility] 01-04-2025 Telephone encounter Note Patient notified and voiced understanding. Jd Toscano MA [facility] 01-04-2025 Miscellaneous Notes Patient notified and voiced understanding. Jd Toscano MA Let patient know her chest x-ray was ok. documented in this encounter [facility] 01-04-2025 Telephone encounter Note Let patient know her chest x-ray was ok. [facility] 01-04-2025 History of Present illness Narrative Radiology Service Progress Note PATIENT NAME: Brenda Villalobos DATE OF SERVICE: January 04, 2025 TIME: 11:45 AM PATIENT IDENTITY VERIFICATION COMPLETED USING TWO (2) IDENTIFIERS: Name and Date of confirmed by patient verbally. FALL SCREENING: Has the patient had 2 falls in the last year or 1 fall with injury or currently using an Ambulatory Assistive Device (Walker, Cane, Wheelchair, Crutches, etc.)? No PATIENT GENDER DATA: Assigned female at . status: : No status: NO. PATIENT RELEVANT IMPLANT DATA REVIEWED: Not Applicable PATIENT PRESENTS WITH AN IMPLANTABLE OR ATTACHED BRICK GRADER: No RADIOLOGY DEPARTMENT: General X-ray: Exam(s) Completed: Chest X-Ray PERIPHERAL IV DATA: Not applicable SIGNED BY: RT Ary(R) January 04, 2025 11:45 AM documented in this encounter [facility] 01-04-2025 Note HNO ID: [id number] Author: LEO NORMAN RT(Freddy) Service: Radiology Author Type: Technologist Type: Progress Notes Filed: 01/04/2025 11:54 Note Text: Radiology Service Progress Note PATIENT NAME: Brenda Villalobos DATE OF SERVICE: January 04, 2025 TIME: 11:45 AM PATIENT IDENTITY VERIFICATION COMPLETED USING TWO (2) IDENTIFIERS: Name and Date of confirmed by patient verbally. FALL SCREENING: Has the patient had 2 falls in the last year or 1 fall with injury or currently using an Ambulatory Assistive Device (Walker, Cane, Wheelchair, Crutches, etc.)? No PATIENT GENDER DATA: Assigned female at . status: : No status: NO. PATIENT RELEVANT IMPLANT DATA REVIEWED: Not Applicable PATIENT PRESENTS WITH AN IMPLANTABLE OR ATTACHED BRICK GRADER: No RADIOLOGY DEPARTMENT: General X-ray: Exam(s) Completed: Chest X-Ray PERIPHERAL IV DATA: Not applicable SIGNED BY: RT Ary(R) January 04, 2025 11:45 AM [facility] 01-04-2025 History of Present illness Narrative Chief Complaint Patient presents with: Flu Like Symptoms HPI Brenda Villalobos is a 54 year old female who presents here today for flu like symptoms. Patient was seen 12/27/2024 [facility]. Patient was also seen in on 12/31/2024. Tested positive for Flu but was outside the window for Tx with Tamiflu. Patient was placed on Augmentin 875 mg twice a day for 5 days along with a steroid taper. Patient continues to have a bad Headache and body aches. No fevers. No chills. Occasional ear pain. No fascial pain. Having white nasal drainage. Has some post nasal drainage. Mild sore throat. No increased shortness of breath or wheezing. No nausea or vomiting. No diarrhea since last week. Continues to have an occasional cough that has not been productive in the last two days. Past medical history, appointments, medications, allergies reviewed. 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 Has been on omeprazole, pantoprazole and prevacid with no relief of symptoms. Nexium has been helpful and dexalant Insomnia 04/12/2014 OA (osteoarthrosis) 05/18/2021 Post-menopausal Situational depression 04/19/2020 Smoker 08/12/2013 Started at the age of 11 up to 1.5 PPD Spastic bladder 10/23/2018 Varicose veins of bilateral lower extremities with other complications 04/19/2020 bleeding at times Vitamin B12 deficiency 10/25/2020 Vitamin D deficiency Well adult exam 04/17/2016 last done: 04/19/20 Previous Surgical History PAST SURGICAL HISTORY Procedure Laterality Date 48 HOUR PH STUDY 09/13/2021 Demeester score-28.6; Dr. Gresham EGD TRANSORAL BIOPSY SINGLE/MULTIPLE 05/27/2016 EGD WITH BIOPSY(S) 09/13/2021 Dr. Gresham ESOPHAGOGASTRODUODENOSCOPY TRANSORAL DIAGNOSTIC 03/16/2020 OFFICE LEEP 2002 TOTAL ABDOMINAL HYSTERECT W/WO RMVL TUBE OVARY Bilateral 2002 bso Family History FAMILY HISTORY Problem Relation Age of Onset COPD Mother Heart Mother Thyroid Mother Hypertension Mother Kidney Disease Mother Kidney failure Asthma Mother Breast Cancer Mother Seizures Brother Coronary Artery Disease Maternal Grandmother Thyroid Daughter Diabetes Son Type 1 Hypertension Son Asthma Son Alzheimer's Disease Paternal Uncle Prostate Cancer Paternal Uncle Ovarian cancer No Family History Colon Cancer No Family History Hyperlipidemia No Family History Stroke No Family History Patient Allergies ALLERGIES Allergen Reactions Medrol Dose Pack [M* Swelling Swelling of throat Bactrim [Sulfametho* Itching Carafate [Sucralfat* Other: See Comments Made her constipated Morphine Itching Trimethoprim Other: See Comments, Unknown Zoloft [Sertraline] Other: See Comments Chest felt heavy. Current Medications Current Outpatient Medications on File Prior to Visit Medication Sig predniSONE (DELTASONE) 10 mg tablet Take 4 tablets by mouth once daily for 3 days, THEN 3 tablets once daily for 2 days, THEN 1 tablet once daily for 2 days. Cjymptyzcrjntvp-Ituotplrq-ZE (BROMFED DM) 2-30-10 mg/5 mL syrup Take 5 mL by mouth four times a day as needed. amoxicillin-clavulanate potassium (AUGMENTIN) 875-125 mg per tablet Take 1 tablet by mouth two times a day for 5 days. FLUoxetine (PROZAC) 40 mg capsule Take 1 capsule by mouth two times a day. levothyroxine (SYNTHROID) 88 mcg tablet Take one tab by mouth daily.Friday -Friday and none on Friday. fluticasone (FLONASE) 50 mcg/actuation nasal spray Use 2 Sprays in each nostril once daily. Rinse mouth after use. fluticasone-salmeterol (ADVAIR DISKUS) 250-50 mcg/dose inhaler Inhale 1 Puff as instructed two times a day. Rinse and gargle mouth after use with water. tiotropium (SPIRIVA) 18 mcg inhalation capsule Inhale 1 capsule as instructed once daily. Dexlansoprazole 60 mg CpDM Take 60 mg by mouth one time only. SENOKOT 8.6 mg tab Take 1 tablet by mouth two times a day. albuterol (PROVENTIL) 2.5 mg /3 mL (0.083 %) nebulizer solution Use 3 mL via nebulizer every 6 hours as needed for wheezing/shortness of breath. Use over 5-15minutes. albuterol HFA (PROAIR HFA) 90 mcg/actuation inhaler USE 2 INHALATIONS EVERY 6 HOURS INSTRUCTED NEEDED ipratropium-albuterol (DUONEB) 0.5 mg-3 mg(2.5 mg base)/3 mL nebu Inhale 3 mL as instructed two times a day. Cholecalciferol, Vitamin D3, 50 mcg (2,000 unit) cap Take 1 capsule by mouth once daily. cyanocobalamin (VITAMIN B-12) 1,000 mcg tab Take 1 tablet by mouth once daily. ergocalciferol, vitamin D2, (VITAMIN D2 ORAL) Take by mouth. No current facility-administered medications on file prior to visit. Social History Social History Tobacco Use Smoking status: Every Day Current packs/day: 0.50 Average packs/day: 0.5 packs/day for 43.7 years (21.8 ttl pk-yrs) Types: Cigarettes Start date: 1981 Smokeless tobacco: Never Tobacco comments: Both parents smoked in childhood home. 1st AM cigarette within 5 minutes of waking up. 01/30/16. TO Vaping Use Vaping status: Never Used Substance Use Topics Alcohol use: No Drug use: No Review of Symptoms REVIEW OF SYSTEMS See HPI EXAM: BP 148/100 Pulse 76 Temp 37.1 C (98.7 F) Resp 22 SpO2 96% General Appearance: Well appearing, alert, in no acute distress, well-hydrated, well nourished.. Ears: External ears, TM's normal, canals clear. Nose/Sinuses: Nares normal, septum midline, mucosa normal, no drainage. Very tender over the frontal and maxillary sinuses. tenderness. Oropharynx: Lips, mucosa, and tongue normal, teeth and gums normal, oropharynx normal. Neck: Supple, no adenopathy; thyroid symmetric, normal size, no bruits. Lungs: decreased breath sounds through out. No wheezing, rales. No audible crackles. Has some rhonchi in the right base. . Heart: RRR without murmur, gallop, or rubs. No ectopy. Abdomen: Normal abdominal exam, Abdomen soft, non-tender. Bowel sounds normal. No masses, organomegaly. Health Maintenance List Pneumococcal Vaccine: 50+(1 of 2 - PCV) Never done Mammogram Screening due on 05/13/2020 Annual PCP Team Chronic Disease Visit due on 11/12/2025 Diabetes Screening due on 12/03/2026 Colorectal Cancer Screening due on 08/15/2027 DTaP,Tdap,Td Vaccine(2 - Td or Tdap) due on 04/22/2028 Lipid Screening due on 12/03/2028 Spirometry Completed Hepatitis B Vaccine Discontinued Alpha-1 Antitrypsin Deficiency Screening Discontinued Lung Cancer Screening Discontinued Cervical Cancer Screening Discontinued Influenza Vaccine Discontinued Hepatitis C Screening Discontinued HIV Screening Discontinued Shingrix Vaccine Discontinued Covid-19 Vaccine Discontinued Data reviewed A/P ASSESSMENT/PLAN: 1. Bacterial sinusitis - ICD9: 473.9, 041.9, ICD10: J32.9, B96.89 (primary diagnosis) - Will begin treatment with as per antibiotic as written, see orders. Biaxin xl 500 mg twice day for 12 days 2. Abnormal breath sounds - ICD9: 786.7, ICD10: R06.89 - as above and check chest x-ray. Requested Prescriptions Signed Prescriptions Disp Refills clarithromycin XL (BIAXIN XL) 500 mg 24 hr tablet 24 tablet 0 Sig: Take 1 tablet by mouth two times a day for 12 days. F/u if not getting better. Note written to be off work from through Friday12/13/2901/09/2025. Fortino Logan MD documented in this encounter [facility] 01-04-2025 Note HNO ID: [id number] Author: FORTINO LOGAN MD Service: ? Author Type: Physician Type: Progress Notes Filed: 01/04/2025 13:19 Note Text: Chief Complaint Patient presents with: Flu Like Symptoms HPI Brenda Villalobos is a 54 year old female who presents here today for flu like symptoms. Patient was seen 12/27/2024 [facility] ER. Patient was also seen in on 12/31/2024. Tested positive for Flu but was outside the window for Tx with Tamiflu. Patient was placed on Augmentin 875 mg twice a day for 5 days along with a steroid taper. Patient continues to have a bad Headache and body aches. No fevers. No chills. Occasional ear pain. No fascial pain. Having white nasal drainage. Has some post nasal drainage. Mild sore throat. No increased shortness of breath or wheezing. No nausea or vomiting. No diarrhea since last week. Continues to have an occasional cough that has not been productive in the last two days. Past medical history, appointments, medications, allergies reviewed. 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 Has been on omeprazole, pantoprazole and prevacid with no relief of symptoms. Nexium has been helpful and dexalant Insomnia 04/12/2014 OA (osteoarthrosis) 05/18/2021 Post-menopausal Situational depression 04/19/2020 Smoker 08/12/2013 Started at the age of 11 up to 1.5 PPD Spastic bladder 10/23/2018 Varicose veins of bilateral lower extremities with other complications 04/19/2020 bleeding at times Vitamin B12 deficiency 10/25/2020 Vitamin D deficiency Well adult exam 04/17/2016 last done: 04/19/20 Previous Surgical History PAST SURGICAL HISTORY Procedure Laterality Date 48 HOUR PH STUDY 09/13/2021 Demeester score-28.6; Dr. Gresham EGD TRANSORAL BIOPSY SINGLE/MULTIPLE 05/27/2016 EGD WITH BIOPSY(S) 09/13/2021 Dr. Gresham ESOPHAGOGASTRODUODENOSCOPY TRANSORAL DIAGNOSTIC 03/16/2020 OFFICE LEEP 2001 TOTAL ABDOMINAL HYSTERECT W/WO RMVL TUBE OVARY Bilateral 2002 bso Family History FAMILY HISTORY Problem Relation Age of Onset COPD Mother Heart Mother Thyroid Mother Hypertension Mother Kidney Disease Mother Kidney failure Asthma Mother Breast Cancer Mother Seizures Brother Coronary Artery Disease Maternal Grandmother Thyroid Daughter Diabetes Son Type 1 Hypertension Son Asthma Son Alzheimer's Disease Paternal Uncle Prostate Cancer Paternal Uncle Ovarian cancer No Family History Colon Cancer No Family History Hyperlipidemia No Family History Stroke No Family History Patient Allergies ALLERGIES Allergen Reactions Medrol Dose Pack [M* Swelling Swelling of throat Bactrim [Sulfametho* Itching Carafate [Sucralfat* Other: See Comments Made her constipated Morphine Itching Trimethoprim Other: See Comments, Unknown Zoloft [Sertraline] Other: See Comments Chest felt heavy. Current Medications Current Outpatient Medications on File Prior to Visit Medication Sig predniSONE (DELTASONE) 10 mg tablet Take 4 tablets by mouth once daily for 3 days, THEN 3 tablets once daily for 2 days, THEN 1 tablet once daily for 2 days. Niptukibbwdtxhx-Lcakkhjmb-HC (BROMFED DM) 2-30-10 mg/5 mL syrup Take 5 mL by mouth four times a day as needed. amoxicillin-clavulanate potassium (AUGMENTIN) 875-125 mg per tablet Take 1 tablet by mouth two times a day for 5 days. FLUoxetine (PROZAC) 40 mg capsule Take 1 capsule by mouth two times a day. levothyroxine (SYNTHROID) 88 mcg tablet Take one tab by mouth daily.Friday -Friday and none on Friday. fluticasone (FLONASE) 50 mcg/actuation nasal spray Use 2 Sprays in each nostril once daily. Rinse mouth after use. fluticasone-salmeterol (ADVAIR DISKUS) 250-50 mcg/dose inhaler Inhale 1 Puff as instructed two times a day. Rinse and gargle mouth after use with water. tiotropium (SPIRIVA) 18 mcg inhalation capsule Inhale 1 capsule as instructed once daily. Dexlansoprazole 60 mg CpDM Take 60 mg by mouth one time only. SENOKOT 8.6 mg tab Take 1 tablet by mouth two times a day. albuterol (PROVENTIL) 2.5 mg /3 mL (0.083 %) nebulizer solution Use 3 mL via nebulizer every 6 hours as needed for wheezing/shortness of breath. Use over 5-15minutes. albuterol HFA (PROAIR HFA) 90 mcg/actuation inhaler USE 2 INHALATIONS EVERY 6 HOURS INSTRUCTED NEEDED ipratropium-albuterol (DUONEB) 0.5 mg-3 mg(2.5 mg base)/3 mL neb (more content not included)... [facility] 12-31-2024 Instructions Sara Vargas APRN.CNP - 12/31/2024 2:32 PM EDT ASSESSMENT/PLAN: 1. COPD with exacerbation (HCC) - ICD9: 491.21, ICD10: J44.1 - use your inhalers as prescribed. - PREDNISONE 10 MG TABLET- will continue with taper - [id number]-[id number]-AF 2 MG-30 MG-10 MG/5 ML ORAL SYRUP - AMOXICILLIN 875 MG-POTASSIUM CLAVULANATE 125 MG TABLET - Follow-up with your PCP in 3-5 days if symptoms have not improved or sooner if symptoms worsen - Discussed red flags and need for immediate medical evaluation if any occur. - Discussed supportive care treatment with fluids, rest and analgesia. - Discussed expected course of illness Sara Vargas APRN.CNP documented in this encounter [facility] 12-31-2024 Note HNO ID: [id number] Author: SARA VARGAS APRN.FUAD Service: ? Author Type: Nurse Practitioner Type: Progress Notes Filed: 12/31/2024 14:32 Note Text: [facility] Subjective Brenda Villalobos is a 54 year old female. Patient presents with: Cough: Chest congestion, sore throat x 1.5 week Cough Associated symptoms include sore throat, shortness of breath and wheezing. Pertinent negatives include no chest pain, no chills and no ear pain. Brenda Villalobos is a 54 year old female who presents with 10 days of cough, sore throat, nasal congestion, shortness of breath. She has history of COPD and feels her cough is productive of more sputum than normal and she is having more shortness of breath. She went to the ER who diagnosed her with the flu and put her on Prednisone 60 mg daily x 3 days. She has been using her inhalers as prescribed. She denies fever or chills. Review of Systems Constitutional: Negative for chills, fatigue and fever. HENT: Positive for congestion and sore throat. Negative for ear pain. Respiratory: Positive for cough, shortness of breath and wheezing. Cardiovascular: Negative for chest pain. Musculoskeletal: Negative. Objective BP 147/88 Pulse 78 Temp 36.9 ?C (98.5 ?F) Resp 22 Wt 59 kg (130 lb 1.1 oz) SpO2 98% BMI 23.41 kg/m? PAST MEDICAL HISTORY Diagnosis Date - Acquired hypothyroidism 04/25/2015 US 10/2017 showed enlarged right lobe but no nodules - Allergic rhinitis 09/03/2013 - ALEXYS III (cervical intraepithelial neoplasia grade III) with severe dysplasia - Constipation 08/23/2015 - COPD with asthma (HCC) - Dyslipidemia 04/22/2018 - Elevated fasting blood sugar 04/18/2017 - Endometriosis, site unspecified Endometriosis - MURIEL (generalized anxiety disorder) 05/18/2021 - Gastric hyperplasia 10/18/2016 - Gastro-esophageal reflux disease with esophagitis 10/18/2016 Patient with EGD proven esophagitis and gastric hyperplasia. Has been on omeprazole, pantoprazole and prevacid with no relief of symptoms. Nexium has been helpful and dexalant - Insomnia 04/12/2014 - OA (osteoarthrosis) 05/18/2021 - Post-menopausal - Situational depression 04/19/2020 - Smoker 08/12/2013 Started at the age of 11 up to 1.5 PPD - Spastic bladder 10/23/2018 - Varicose veins of bilateral lower extremities with other complications 04/19/2020 bleeding at times - Vitamin B12 deficiency 10/25/2020 - Vitamin D deficiency - Well adult exam 04/17/2016 last done: 04/19/20 PAST SURGICAL HISTORY Procedure Laterality Date - 48 HOUR PH STUDY 09/13/2021 Demeester score-28.6; Dr. Gresham - EGD TRANSORAL BIOPSY SINGLE/MULTIPLE 05/27/2016 - EGD WITH BIOPSY(S) 09/13/2021 Dr. Gresham - ESOPHAGOGASTRODUODENOSCOPY TRANSORAL DIAGNOSTIC 03/16/2020 - OFFICE LEEP 2001 - TOTAL ABDOMINAL HYSTERECT W/WO RMVL TUBE OVARY Bilateral 2002 bso ALLERGIES Medrol Dose Pack [Methylprednisolone], Bactrim [Sulfamethoxazole], Carafate [Sucralfate], Morphine, Trimethoprim, and Zoloft [Sertraline] MEDICATIONS - predniSONE (DELTASONE) 10 mg tablet Take 4 tablets by mouth once daily for 3 days, THEN 3 tablets once daily for 2 days, THEN 1 tablet once daily for 2 days. - Lxewqrpdguvgdfv-Dpzodkzmu-WC (BROMFED DM) 2-30-10 mg/5 mL syrup Take 5 mL by mouth four times a day as needed. - amoxicillin-clavulanate potassium (AUGMENTIN) 875-125 mg per tablet Take 1 tablet by mouth two times a day for 5 days. - mupirocin (BACTROBAN) 2 % ointment Apply to affected area three times a day for 10 days. - FLUoxetine (PROZAC) 40 mg capsule Take 1 capsule by mouth two times a day. - levothyroxine (SYNTHROID) 88 mcg tablet Take one tab by mouth daily.Friday -Friday and none on Friday. - fluticasone (FLONASE) 50 mcg/actuation nasal spray Use 2 Sprays in each nostril once daily. Rinse mouth after use. - fluticasone-salmeterol (ADVAIR DISKUS) 250-50 mcg/dose inhaler Inhale 1 Puff as instructed two times a day. Rinse and gargle mouth after use with water. - tiotropium (SPIRIVA) 18 mcg inhalation capsule Inhale 1 capsule as instructed once daily. - Dexlansoprazole 60 mg CpDM Take 60 mg by mouth one time only. - SENOKOT 8.6 mg tab Take 1 tablet by mouth two times a day. - albuterol (PROVENTIL) 2.5 mg /3 mL (0.083 %) nebulizer solution Use 3 mL via nebulizer every 6 hours as needed for wheezing/shortness of breath. Use over 5-15minutes. - albuterol HFA (PROAIR HFA) 90 mcg/actuation inhaler USE 2 INHALATIONS EVERY 6 HOURS INSTRUCTED NEEDED - ipratropium-albuterol (DUONEB) 0.5 mg-3 mg(2.5 mg base)/3 mL nebu Inhale 3 mL as instructed two times a day. - Cholecalciferol, Vitamin D3, 50 mcg (2,000 unit) cap Take 1 capsule by mouth once daily. - cyanocobalamin (VITAMIN B-12) 1,000 mcg tab Take 1 tablet by mouth once daily. - ergocalciferol, vitamin D2, (VITAMIN D2 ORAL) Take by mouth. FAMILY HISTORY Problem Relation Age of Onset - COPD Mother - Heart Mo (more content not included)... [facility] 12-31-2024 History of Present illness Narrative [facility] Subjective Brenda Villalobos is a 54 year old female. Patient presents with: Cough: Chest congestion, sore throat x 1.5 week Cough Associated symptoms include sore throat, shortness of breath and wheezing. Pertinent negatives include no chest pain, no chills and no ear pain. Brenda Villalobos is a 54 year old female who presents with 10 days of cough, sore throat, nasal congestion, shortness of breath. She has history of COPD and feels her cough is productive of more sputum than normal and she is having more shortness of breath. She went to the ER who diagnosed her with the flu and put her on Prednisone 60 mg daily x 3 days. She has been using her inhalers as prescribed. She denies fever or chills. Review of Systems Constitutional: Negative for chills, fatigue and fever. HENT: Positive for congestion and sore throat. Negative for ear pain. Respiratory: Positive for cough, shortness of breath and wheezing. Cardiovascular: Negative for chest pain. Musculoskeletal: Negative. Objective BP 147/88 Pulse 78 Temp 36.9 C (98.5 F) Resp 22 Wt 59 kg (130 lb 1.1 oz) SpO2 98% BMI 23.41 kg/m PAST MEDICAL HISTORY Diagnosis Date Acquired hypothyroidism 04/25/2015 US 10/2017 showed enlarged right lobe but no nodules Allergic rhinitis 09/03/2013 ALEXYS III (cervical intraepithelial neoplasia grade III) with severe dysplasia Constipation 08/23/2015 COPD with asthma (HCC) Dyslipidemia 04/22/2018 Elevated fasting blood sugar 04/18/2017 Endometriosis, site unspecified Endometriosis MURIEL (generalized anxiety disorder) 05/18/2021 Gastric hyperplasia 10/18/2016 Gastro-esophageal reflux disease with esophagitis 10/18/2016 Patient with EGD proven esophagitis and gastric hyperplasia. Has been on omeprazole, pantoprazole and prevacid with no relief of symptoms. Nexium has been helpful and dexalant Insomnia 04/12/2014 OA (osteoarthrosis) 05/18/2021 Post-menopausal Situational depression 04/19/2020 Smoker 08/12/2013 Started at the age of 11 up to 1.5 PPD Spastic bladder 10/23/2018 Varicose veins of bilateral lower extremities with other complications 04/19/2020 bleeding at times Vitamin B12 deficiency 10/25/2020 Vitamin D deficiency Well adult exam 04/17/2016 last done: 04/19/20 PAST SURGICAL HISTORY Procedure Laterality Date 48 HOUR PH STUDY 09/13/2021 Demeester score-28.6; Dr. Gresham EGD TRANSORAL BIOPSY SINGLE/MULTIPLE 05/27/2016 EGD WITH BIOPSY(S) 09/13/2021 Dr. Gresham ESOPHAGOGASTRODUODENOSCOPY TRANSORAL DIAGNOSTIC 03/16/2020 OFFICE LEEP 2001 TOTAL ABDOMINAL HYSTERECT W/WO RMVL TUBE OVARY Bilateral 2002 bso ALLERGIES Medrol Dose Pack [Methylprednisolone], Bactrim [Sulfamethoxazole], Carafate [Sucralfate], Morphine, Trimethoprim, and Zoloft [Sertraline] MEDICATIONS predniSONE (DELTASONE) 10 mg tablet Take 4 tablets by mouth once daily for 3 days, THEN 3 tablets once daily for 2 days, THEN 1 tablet once daily for 2 days. Rjjtcuiposyzhog-Bcoruewha-QF (BROMFED DM) 2-30-10 mg/5 mL syrup Take 5 mL by mouth four times a day as needed. amoxicillin-clavulanate potassium (AUGMENTIN) 875-125 mg per tablet Take 1 tablet by mouth two times a day for 5 days. mupirocin (BACTROBAN) 2 % ointment Apply to affected area three times a day for 10 days. FLUoxetine (PROZAC) 40 mg capsule Take 1 capsule by mouth two times a day. levothyroxine (SYNTHROID) 88 mcg tablet Take one tab by mouth daily.Friday -Friday and none on Friday. fluticasone (FLONASE) 50 mcg/actuation nasal spray Use 2 Sprays in each nostril once daily. Rinse mouth after use. fluticasone-salmeterol (ADVAIR DISKUS) 250-50 mcg/dose inhaler Inhale 1 Puff as instructed two times a day. Rinse and gargle mouth after use with water. tiotropium (SPIRIVA) 18 mcg inhalation capsule Inhale 1 capsule as instructed once daily. Dexlansoprazole 60 mg CpDM Take 60 mg by mouth one time only. SENOKOT 8.6 mg tab Take 1 tablet by mouth two times a day. albuterol (PROVENTIL) 2.5 mg /3 mL (0.083 %) nebulizer solution Use 3 mL via nebulizer every 6 hours as needed for wheezing/shortness of breath. Use over 5-15minutes. albuterol HFA (PROAIR HFA) 90 mcg/actuation inhaler USE 2 INHALATIONS EVERY 6 HOURS INSTRUCTED NEEDED ipratropium-albuterol (DUONEB) 0.5 mg-3 mg(2.5 mg base)/3 mL nebu Inhale 3 mL as instructed two times a day. Cholecalciferol, Vitamin D3, 50 mcg (2,000 unit) cap Take 1 capsule by mouth once daily. cyanocobalamin (VITAMIN B-12) 1,000 mcg tab Take 1 tablet by mouth once daily. ergocalciferol, vitamin D2, (VITAMIN D2 ORAL) Take by mouth. FAMILY HISTORY Problem Relation Age of Onset COPD Mother Heart Mother Thyroid Mother Hypertension Mother Kidney Disease Mother Kidney failure Asthma Mother Breast Cancer Mother Seizures Brother Coronary Artery Disease Maternal Grandmother Thyroid Daughter Diabetes Son Type 1 Hypertension Son Asthma Son Alzheimer's Disease Paternal Uncle Prostate Cancer Paternal Uncle Ovarian cancer No Family History Colon Cancer No Family History Hyperlipidemia No Family History Stroke No Family History Social History Tobacco Use Smoking status: Every Day Current packs/day: 0.50 Average packs/day: 0.5 packs/day for 43.7 years (21.8 ttl pk-yrs) Types: Cigarettes Start date: 1981 Smokeless tobacco: Never Tobacco comments: Both parents smoked in childhood home. 1st AM cigarette within 5 minutes of waking up. 01/30/16. TO Vaping Use Vaping status: Never Used Substance Use Topics Alcohol use: No Drug use: No Physical Exam Vitals and nursing note reviewed. Constitutional: General: She is not in acute distress. Appearance: Normal appearance. She is not ill-appearing. HENT: Right Ear: Tympanic membrane, ear canal and external ear normal. Left Ear: Tympanic membrane, ear canal and external ear normal. Nose: Nose normal. Mouth/Throat: Mouth: Mucous membranes are moist. Pharynx: Oropharynx is clear. No oropharyngeal exudate or posterior oropharyngeal erythema. Cardiovascular: Rate and Rhythm: Normal rate and regular rhythm. Heart sounds: Normal heart sounds. Pulmonary: Effort: Pulmonary effort is normal. No respiratory distress. Breath sounds: Examination of the right-upper field reveals wheezing. Examination of the left-upper field reveals wheezing. Examination of the right-lower field reveals wheezing. Examination of the left-lower field reveals wheezing. Wheezing present. No rales. Lymphadenopathy: Cervical: No cervical adenopathy. Skin: General: Skin is warm and dry. Findings: No erythema or rash. Neurological: Mental Status: She is alert. {ASSESSMENT/PLAN: 1. COPD with exacerbation (HCC) - ICD9: 491.21, ICD10: J44.1 - use your inhalers as prescribed. - PREDNISONE 10 MG TABLET- will continue with taper - [id number]-XYOPPJARJQVJMOQ-GC 2 MG-30 MG-10 MG/5 ML ORAL SYRUP - AMOXICILLIN 875 MG-POTASSIUM CLAVULANATE 125 MG TABLET - Follow-up with your PCP in 3-5 days if symptoms have not improved or sooner if symptoms worsen - Discussed red flags and need for immediate medical evaluation if any occur. - Discussed supportive care treatment with fluids, rest and analgesia. - Discussed expected course of illness Sara Vargas APRN.FUAD History and Record Review External record(s) reviewed: prior outpatient record and prior labs/imaging. Findings from review of outpatient records: recent ER treatment Findings from review of prior labs/imaging: Last eGFR 06/07/24 was 99 Previous Renal Function Panel Reviewed No results within last 365 days. Differential Diagnoses - copd with exacerbation is more likely for the following reason(s): suggested by H&P - pneumonia is less likely for the following reason(s): H&P not suggestive Additional Tests or Interventions The following testing was considered but ultimately not selected after discussion with patient/family: chest xray Contributing Factors Chronic conditions affecting care: copd Disposition The patient was discharged. Procedures documented in this encounter [facility] 12-29-2024 Note HNO ID: [id number] Author: JD TOSCANO MA Service: ? Author Type: Manager Float Type: Progress Notes Filed: 12/29/2024 18:45 Note Text: Scan on 12/28/2024 12:28 AM by ProviderNasir PA-C: Consultation - Emergency Medicine Patient tested positive for influenza A. Jd Toscano MA [facility] 12-29-2024 History of Present illness Narrative Scan on 12/28/2024 12:28 AM by ProviderNasir PAAugustC: Consultation - Emergency Medicine Patient tested positive for influenza A. Jd Toscano MA documented in this encounter [facility] 12-27-2024 Radiology Diagnostic study note [facility] Imaging Services [address] [place] [address] Chest 1 View (Portable) MR#: [id number] Acct: [id number] Name: BRENDA VILLALOBOS Rep #: [id number] 1 : 1970 F 54 From: Karen mccarty Afuwape DO PCP: Dr. Fortino Logan MD Status: REG ER Study:Chest 1 View (Portable) Date of Exam: 12/27/24 Exam# [id number] Ordering Dr: Elton Alexander DO PROCEDURE: CHEST 1 VIEW (PORTABLE) 12/27/2024 REASON FOR EXAM: COUG COPD TECHNIQUE: Frontal view of the chest. COMPARISON: Chest radiograph dated 08/28/2023. FINDINGS: The heart size is normal. The lungs are clear. The bones are unremarkable. RAD/Chest 1 View (Portable) IMPRESSION: Negative Chest. Reading Location: [facility] CC: Dr. Francesco Alexander DO; Dr. Fortino Logan MD ~ Can Crimper: Signed [facility] 12-24-2024 Note HNO ID: [id number] Author: NAILA TOSCANO APRN.RN RECRUITMENT Service: ? Author Type: Nurse Practitioner Type: Progress Notes Filed: 12/24/2024 13:33 Note Text: [facility] Subjective Brenda Villalobos is a 54 year old female. Patient presents with: Head Congestion: Sinus congestion, pain and pressure, ADAIR, nausea, upset stomach x2 days Patient came in with complaints of sinus congestion and cough. Patient said that started 2 days ago. Patient denies sore throat or increased shortness of breath at her normal. Patient also has a tiny spot on the left side of her chin that she thinks could be infected. The history is provided by the patient. No specialized language instructor was used. Review of Systems Constitutional: Negative. HENT: Positive for sinus pressure. Respiratory: Positive for cough. Objective BP 151/93 Pulse 91 Temp 37.3 ?C (99.2 ?F) Resp 18 Wt 59.4 kg (130 lb 15.3 oz) SpO2 95% BMI 23.57 kg/m? Physical Exam Constitutional: Appearance: Normal appearance. HENT: Right Ear: Tympanic membrane, ear canal and external ear normal. Left Ear: Tympanic membrane, ear canal and external ear normal. Mouth/Throat: Mouth: Mucous membranes are moist. Pharynx: No posterior oropharyngeal erythema. Eyes: Pupils: Pupils are equal, round, and reactive to light. Neck: Comments: Small pea-sized reddened area located in the area marked above Cardiovascular: Rate and Rhythm: Normal rate and regular rhythm. Heart sounds: Normal heart sounds. Pulmonary: Effort: Pulmonary effort is normal. Breath sounds: Normal breath sounds. Neurological: Mental Status: She is alert. PAST MEDICAL HISTORY Diagnosis Date Acquired hypothyroidism 04/25/2015 US 10/2017 showed enlarged right lobe but no nodules Allergic rhinitis 09/03/2013 ALEXYS III (cervical intraepithelial neoplasia grade III) with severe dysplasia Constipation 08/23/2015 COPD with asthma (HCC) Dyslipidemia 04/22/2018 Elevated fasting blood sugar 04/18/2017 Endometriosis, site unspecified Endometriosis MURIEL (generalized anxiety disorder) 05/18/2021 Gastric hyperplasia 10/18/2016 Gastro-esophageal reflux disease with esophagitis 10/18/2016 Patient with EGD proven esophagitis and gastric hyperplasia. Has been on omeprazole, pantoprazole and prevacid with no relief of symptoms. Nexium has been helpful and dexalant Insomnia 04/12/2014 OA (osteoarthrosis) 05/18/2021 Post-menopausal Situational depression 04/19/2020 Smoker 08/12/2013 Started at the age of 11 up to 1.5 PPD Spastic bladder 10/23/2018 Varicose veins of bilateral lower extremities with other complications 04/19/2020 bleeding at times Vitamin B12 deficiency 10/25/2020 Vitamin D deficiency Well adult exam 04/17/2016 last done: 04/19/20 PAST SURGICAL HISTORY Procedure Laterality Date 48 HOUR PH STUDY 09/13/2021 Demeester score-28.6; Dr. Gresham EGD TRANSORAL BIOPSY SINGLE/MULTIPLE 05/27/2016 EGD WITH BIOPSY(S) 09/13/2021 Dr. Gresham ESOPHAGOGASTRODUODENOSCOPY TRANSORAL DIAGNOSTIC 03/16/2020 OFFICE LEEP 2001 TOTAL ABDOMINAL HYSTERECT W/WO RMVL TUBE OVARY Bilateral 2002 bso ALLERGIES Medrol Dose Pack [Methylprednisolone], Bactrim [Sulfamethoxazole], Carafate [Sucralfate], Morphine, Trimethoprim, and Zoloft [Sertraline] MEDICATIONS mupirocin (BACTROBAN) 2 % ointment Apply to affected area three times a day for 10 days. FLUoxetine (PROZAC) 40 mg capsule Take 1 capsule by mouth two times a day. levothyroxine (SYNTHROID) 88 mcg tablet Take one tab by mouth daily.Friday -Friday and none on Friday. fluticasone (FLONASE) 50 mcg/actuation nasal spray Use 2 Sprays in each nostril once daily. Rinse mouth after use. fluticasone-salmeterol (ADVAIR DISKUS) 250-50 mcg/dose inhaler Inhale 1 Puff as instructed two times a day. Rinse and gargle mouth after use with water. tiotropium (SPIRIVA) 18 mcg inhalation capsule Inhale 1 capsule as instructed once daily. Dexlansoprazole 60 mg CpDM Take 60 mg by mouth one time only. SENOKOT 8.6 mg tab Take 1 tablet by mouth two times a day. albuterol (PROVENTIL) 2.5 mg /3 mL (0.083 %) nebulizer solution Use 3 mL via nebulizer every 6 hours as needed for wheezing/shortness of breath. Use over 5-15minutes. albuterol HFA (PROAIR HFA) 90 mcg/actuation inhaler USE 2 INHALATIONS EVERY 6 HOURS INSTRUCTED NEEDED ipratropium-albuterol (DUONEB) 0.5 mg-3 mg(2.5 mg base)/3 mL nebu Inhale 3 mL as instructed two times a day. Cholecalciferol, Vitamin D3, 50 mcg (2,000 unit) cap Take 1 capsule by mouth once daily. cyanocobalamin (VITAMIN B-12) 1,000 mcg tab Take 1 tablet by mouth once daily. ergocalciferol, vitamin D2, (VITAMIN D2 ORAL) Take by mouth. FAMILY HISTORY Problem Relation Age of Onset COPD Mother Heart Mother Thyroid Mother Hypertension Mother Kidney Disease Mother Kidney failure Asthma Mother Breast Cancer Mother Seizures Brother Coronary Artery Disease Mate (more content not included)... [facility] 12-24-2024 History of Present illness Narrative Images from the original note were not included. [facility] Subjective Brenda Villalobos is a 54 year old female. Patient presents with: Head Congestion: Sinus congestion, pain and pressure, ADAIR, nausea, upset stomach x2 days Patient came in with complaints of sinus congestion and cough. Patient said that started 2 days ago. Patient denies sore throat or increased shortness of breath at her normal. Patient also has a tiny spot on the left side of her chin that she thinks could be infected. The history is provided by the patient. No specialized language instructor was used. Review of Systems Constitutional: Negative. HENT: Positive for sinus pressure. Respiratory: Positive for cough. Objective BP 151/93 Pulse 91 Temp 37.3 C (99.2 F) Resp 18 Wt 59.4 kg (130 lb 15.3 oz) SpO2 95% BMI 23.57 kg/m Physical Exam Constitutional: Appearance: Normal appearance. HENT: Right Ear: Tympanic membrane, ear canal and external ear normal. Left Ear: Tympanic membrane, ear canal and external ear normal. Mouth/Throat: Mouth: Mucous membranes are moist. Pharynx: No posterior oropharyngeal erythema. Eyes: Pupils: Pupils are equal, round, and reactive to light. Neck: Comments: Small pea-sized reddened area located in the area marked above Cardiovascular: Rate and Rhythm: Normal rate and regular rhythm. Heart sounds: Normal heart sounds. Pulmonary: Effort: Pulmonary effort is normal. Breath sounds: Normal breath sounds. Neurological: Mental Status: She is alert. PAST MEDICAL HISTORY Diagnosis Date Acquired hypothyroidism 04/25/2015 US 10/2017 showed enlarged right lobe but no nodules Allergic rhinitis 09/03/2013 ALEXYS III (cervical intraepithelial neoplasia grade III) with severe dysplasia Constipation 08/23/2015 COPD with asthma (HCC) Dyslipidemia 04/22/2018 Elevated fasting blood sugar 04/18/2017 Endometriosis, site unspecified Endometriosis MURIEL (generalized anxiety disorder) 05/18/2021 Gastric hyperplasia 10/18/2016 Gastro-esophageal reflux disease with esophagitis 10/18/2016 Patient with EGD proven esophagitis and gastric hyperplasia. Has been on omeprazole, pantoprazole and prevacid with no relief of symptoms. Nexium has been helpful and dexalant Insomnia 04/12/2014 OA (osteoarthrosis) 05/18/2021 Post-menopausal Situational depression 04/19/2020 Smoker 08/12/2013 Started at the age of 11 up to 1.5 PPD Spastic bladder 10/23/2018 Varicose veins of bilateral lower extremities with other complications 04/19/2020 bleeding at times Vitamin B12 deficiency 10/25/2020 Vitamin D deficiency Well adult exam 04/17/2016 last done: 04/19/20 PAST SURGICAL HISTORY Procedure Laterality Date 48 HOUR PH STUDY 09/13/2021 Demeester score-28.6; Dr. Gresham EGD TRANSORAL BIOPSY SINGLE/MULTIPLE 05/27/2016 EGD WITH BIOPSY(S) 09/13/2021 Dr. Gresham ESOPHAGOGASTRODUODENOSCOPY TRANSORAL DIAGNOSTIC 03/16/2020 OFFICE [facility] 2001 TOTAL ABDOMINAL HYSTERECT W/WO RMVL TUBE OVARY Bilateral 2002 bso ALLERGIES Medrol Dose Pack [Methylprednisolone], Bactrim [Sulfamethoxazole], Carafate [Sucralfate], Morphine, Trimethoprim, and Zoloft [Sertraline] MEDICATIONS mupirocin (BACTROBAN) 2 % ointment Apply to affected area three times a day for 10 days. FLUoxetine (PROZAC) 40 mg capsule Take 1 capsule by mouth two times a day. levothyroxine (SYNTHROID) 88 mcg tablet Take one tab by mouth daily.Friday -Friday and none on Friday. fluticasone (FLONASE) 50 mcg/actuation nasal spray Use 2 Sprays in each nostril once daily. Rinse mouth after use. fluticasone-salmeterol (ADVAIR DISKUS) 250-50 mcg/dose inhaler Inhale 1 Puff as instructed two times a day. Rinse and gargle mouth after use with water. tiotropium (SPIRIVA) 18 mcg inhalation capsule Inhale 1 capsule as instructed once daily. Dexlansoprazole 60 mg CpDM Take 60 mg by mouth one time only. SENOKOT 8.6 mg tab Take 1 tablet by mouth two times a day. albuterol (PROVENTIL) 2.5 mg /3 mL (0.083 %) nebulizer solution Use 3 mL via nebulizer every 6 hours as needed for wheezing/shortness of breath. Use over 5-15minutes. albuterol HFA (PROAIR HFA) 90 mcg/actuation inhaler USE 2 INHALATIONS EVERY 6 HOURS INSTRUCTED NEEDED ipratropium-albuterol (DUONEB) 0.5 mg-3 mg(2.5 mg base)/3 mL nebu Inhale 3 mL as instructed two times a day. Cholecalciferol, Vitamin D3, 50 mcg (2,000 unit) cap Take 1 capsule by mouth once daily. cyanocobalamin (VITAMIN B-12) 1,000 mcg tab Take 1 tablet by mouth once daily. ergocalciferol, vitamin D2, (VITAMIN D2 ORAL) Take by mouth. FAMILY HISTORY Problem Relation Age of Onset COPD Mother Heart Mother Thyroid Mother Hypertension Mother Kidney Disease Mother Kidney failure Asthma Mother Breast Cancer Mother Seizures Brother Coronary Artery Disease Maternal Grandmother Thyroid Daughter Diabetes Son Type 1 Hypertension Son Asthma Son Alzheimer's Disease Paternal Uncle Prostate Cancer Paternal Uncle Ovarian cancer No Family History Colon Cancer No Family History Hyperlipidemia No Family History Stroke No Family History Social History Tobacco Use Smoking status: Every Day Current packs/day: 0.50 Average packs/day: 0.5 packs/day for 43.6 years (21.8 ttl pk-yrs) Types: Cigarettes Start date: 1981 Smokeless tobacco: Never Tobacco comments: Both parents smoked in childhood home. 1st AM cigarette within 5 minutes of waking up. 01/30/16. TO Vaping Use Vaping status: Never Used Substance Use Topics Alcohol use: No Drug use: No ASSESSMENT/PLAN: 1. Skin infection - ICD9: 686.9, ICD10: L08.9 (primary diagnosis) - No lymphangetic streaking, this was defined for patient to watch for and to seek medical care immediately if appears - MUPIROCIN 2 % TOPICAL OINTMENT 2. URI, acute - ICD9: 465.9, ICD10: J06.9 - Discussed viral etiology and rationale for treatment. - Symptomatic treatment with prn analgesia - Supportive care with fluids and rest No viral testing Naila Toscano APRN.RN RECRUITMENT MDM Procedures documented in this encounter [facility] 12-09-2024 Telephone encounter Note Patient returned call and went over notes below from Bailey KELLER with understanding. [facility] 12-09-2024 Miscellaneous Notes Patient returned call and went over notes below from Bailey KELLER with understanding. Left message for pt to contact office. Francisco Carver LPN This medication looks to be prescribed by gastro. Please ask patient to reach out to that office. Pt requesting 90 day refill, as pended. Thank you. The patient has been identified by name and date of : Yes Caregiver verified no other encounters exist for this prescription request: Yes Caregiver confirmed with patient/requestor that no other refills are due, in the near future, with this provider at this time: Yes The last office visit in the department: 11/12/2024 Does the patient have a future office visit with this provider/department: Yes 01/26/2025 Requested Prescriptions Pending Prescriptions Disp Refills Dexlansoprazole 60 mg CpDM 90 capsule 1 Sig: Take 60 mg by mouth one time only for 1 dose. Dominique Hicks RN documented in this encounter [facility] 12-09-2024 Telephone encounter Note Left message for pt to contact office. Francisco Carver LPN [facility] 12-08-2024 Telephone encounter Note This medication looks to be prescribed by gastro. Please ask patient to reach out to that office. [facility] Work Phone: 12-08-2024 Telephone encounter Note Pt requesting 90 day refill, as pended. Thank you. The patient has been identified by name and date of : Yes Caregiver verified no other encounters exist for this prescription request: Yes Caregiver confirmed with patient/requestor that no other refills are due, in the near future, with this provider at this time: Yes The last office visit in the department: 11/12/2024 Does the patient have a future office visit with this provider/department: Yes 01/26/2025 Requested Prescriptions Pending Prescriptions Disp Refills Dexlansoprazole 60 mg CpDM 90 capsule 1 Sig: Take 60 mg by mouth one time only for 1 dose. Dominique Hicks RN [facility] 11-22-2024 Note Addended by: FORTINO LOGAN on: 11/22/2024 11:47 AM Modules accepted: Orders [facility] 11-22-2024 Miscellaneous Notes Addended by: FORTINO LOGAN on: 11/22/2024 11:47 AM Modules accepted: Orders Prescription Refill Information The patient has been identified by name and date of : Yes Caregiver verified no other encounters exist for this prescription request: Yes Caregiver confirmed with patient/requestor that no other refills are due, in the near future, with this provider at this time: Yes The last office visit in the department: 10/2024 Does the patient have a future office visit with this provider/department: Yes Requested Prescriptions Pending Prescriptions Disp Refills fluticasone (FLONASE) 50 mcg/actuation nasal spray 1 Each 11 Sig: Use 2 Sprays in each nostril once daily. Rinse mouth after use. tiotropium (SPIRIVA) 18 mcg inhalation capsule 30 capsule 11 Sig: Inhale 1 capsule as instructed once daily. fluticasone-salmeterol (ADVAIR DISKUS) 250-50 mcg/dose inhaler 1 Each 3 Sig: Inhale 1 Puff as instructed two times a day. Rinse and gargle mouth after use with water. levothyroxine (SYNTHROID) 88 mcg tablet 90 tablet 1 Sig: Take one tab by mouth daily.Friday -Friday and none on Friday. Jd Toscano MA November 22, 2024 8:58 AM documented in this encounter [facility] 11-22-2024 Telephone encounter Note Prescription Refill Information The patient has been identified by name and date of : Yes Caregiver verified no other encounters exist for this prescription request: Yes Caregiver confirmed with patient/requestor that no other refills are due, in the near future, with this provider at this time: Yes The last office visit in the department: 10/2024 Does the patient have a future office visit with this provider/department: Yes Requested Prescriptions Pending Prescriptions Disp Refills fluticasone (FLONASE) 50 mcg/actuation nasal spray 1 Each 11 Sig: Use 2 Sprays in each nostril once daily. Rinse mouth after use. tiotropium (SPIRIVA) 18 mcg inhalation capsule 30 capsule 11 Sig: Inhale 1 capsule as instructed once daily. fluticasone-salmeterol (ADVAIR DISKUS) 250-50 mcg/dose inhaler 1 Each 3 Sig: Inhale 1 Puff as instructed two times a day. Rinse and gargle mouth after use with water. levothyroxine (SYNTHROID) 88 mcg tablet 90 tablet 1 Sig: Take one tab by mouth daily.Friday -Friday and none on Friday. Jd Toscano MA November 22, 2024 8:58 AM [facility] 11-15-2024 Telephone encounter Note Patient notified of results. Patient verbalizes understanding. Ayana Bland RN [facility] 11-15-2024 Miscellaneous Notes Patient notified of results. Patient verbalizes understanding. Ayana Bland RN Called and left a voicemail for the Patient to call back and ask for a nurse to receive the providers message. Anjelica Almonte RN Please let patient know their labs are stable. Scan on 11/10/2024 3:39 PM by ProviderNasir PAAugustC: Hematology Scan on 11/10/2024 3:41 PM by ProviderNasir PAAugustC: Chemistry Please review results. Jd Toscano MA documented in this encounter [facility] 11-15-2024 Telephone encounter Note Called and left a voicemail for the Patient to call back and ask for a nurse to receive the providers message. Anjelica Almonte RN [facility] 11-15-2024 Telephone encounter Note Please let patient know their labs are stable. [facility] 11-15-2024 Telephone encounter Note Scan on 11/10/2024 3:39 PM by ProviderNasir PA-C: Hematology Scan on 11/10/2024 3:41 PM by ProviderNasir PAAugustC: Chemistry Please review results. Jd Toscano MA [facility] 11-12-2024 Note Addended by: MELANY BLANC on: 11/12/2024 03:00 PM Modules accepted: Orders [facility] 11-12-2024 Miscellaneous Notes Addended by: MELANY BLANC on: 11/12/2024 03:00 PM Modules accepted: Orders documented in this encounter [facility] 11-12-2024 Instructions Melany Blanc APRN.FUAD - 11/12/2024 2:58 PM EST Magnesium glycinate- 500mg before bed. documented in this encounter [facility] 11-12-2024 Note HNO ID: [id number] Author: MELANY BLANC APRN.CNP Service: ? Author Type: Nurse Practitioner Type: Progress Notes Filed: 11/12/2024 14:58 Note Text: Chief Complaint Patient presents with: Follow Up HPI Brenda Villalobos is a 54 year old female who presents here today for Above Complaints.. Patient presents today for 1 month follow up. Pt states she has no concerns for her health today. She has been taking her medications without complication. Patient states her anxiety has been okay she feels that it has been more controlled since her last visit. Pt states Fluoxetine has been working better than Buspar. Pt denies fever, chills, nausea, vomiting, chest pain and headaches. Past medical history, appointments, medications, allergies reviewed. 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 Has been on omeprazole, pantoprazole and prevacid with no relief of symptoms. Nexium has been helpful and dexalant Insomnia 04/12/2014 OA (osteoarthrosis) 05/18/2021 Post-menopausal Situational depression 04/19/2020 Smoker 08/12/2013 Started at the age of 11 up to 1.5 PPD Spastic bladder 10/23/2018 Varicose veins of bilateral lower extremities with other complications 04/19/2020 bleeding at times Vitamin B12 deficiency 10/25/2020 Vitamin D deficiency Well adult exam 04/17/2016 last done: 04/19/20 Previous Surgical History PAST SURGICAL HISTORY Procedure Laterality Date 48 HOUR PH STUDY 09/13/2021 Demeester score-28.6; Dr. Gresham EGD TRANSORAL BIOPSY SINGLE/MULTIPLE 05/27/2016 EGD WITH BIOPSY(S) 09/13/2021 Dr. Gresham ESOPHAGOGASTRODUODENOSCOPY TRANSORAL DIAGNOSTIC 03/16/2020 OFFICE LEEP 2001 TOTAL ABDOMINAL HYSTERECT W/WO RMVL TUBE OVARY Bilateral 2002 bso Family History FAMILY HISTORY Problem Relation Age of Onset COPD Mother Heart Mother Thyroid Mother Hypertension Mother Kidney Disease Mother Kidney failure Asthma Mother Breast Cancer Mother Seizures Brother Coronary Artery Disease Maternal Grandmother Thyroid Daughter Diabetes Son Type 1 Hypertension Son Asthma Son Alzheimer's Disease Paternal Uncle Prostate Cancer Paternal Uncle Ovarian cancer No Family History Colon Cancer No Family History Hyperlipidemia No Family History Stroke No Family History Patient Allergies ALLERGIES Allergen Reactions Medrol Dose Pack [M* Swelling Swelling of throat Bactrim [Sulfametho* Itching Carafate [Sucralfat* Other: See Comments Made her constipated Morphine Itching Trimethoprim Other: See Comments, Unknown Zoloft [Sertraline] Other: See Comments Chest felt heavy. Current Medications Current Outpatient Medications on File Prior to Visit Medication Sig FLUoxetine (PROZAC) 40 mg capsule Take 1 capsule by mouth two times a day. fluticasone-salmeterol (ADVAIR DISKUS) 250-50 mcg/dose inhaler Inhale 1 Puff as instructed two times a day. Rinse and gargle mouth after use with water. fluticasone (FLONASE) 50 mcg/actuation nasal spray Use 2 Sprays in each nostril once daily. Rinse mouth after use. SENOKOT 8.6 mg tab Take 1 tablet by mouth two times a day. busPIRone (BUSPAR) 15 mg tablet Take 1.5 tabs twice a day. levothyroxine (SYNTHROID) 88 mcg tablet Take one tab by mouth daily.Friday -Friday and none on Friday. esomeprazole (NEXIUM) 40 mg capsule Take 1 capsule by mouth two times a day before meals. tiotropium (SPIRIVA) 18 mcg inhalation capsule Inhale 1 capsule as instructed once daily. albuterol (PROVENTIL) 2.5 mg /3 mL (0.083 %) nebulizer solution Use 3 mL via nebulizer every 6 hours as needed for wheezing/shortness of breath. Use over 5-15minutes. albuterol HFA (PROAIR HFA) 90 mcg/actuation inhaler USE 2 INHALATIONS EVERY 6 HOURS INSTRUCTED NEEDED ipratropium-albuterol (DUONEB) 0.5 mg-3 mg(2.5 mg base)/3 mL nebu Inhale 3 mL as instructed two times a day. Cholecalciferol, Vitamin D3, 50 mcg (2,000 unit) cap Take 1 capsule by mouth once daily. cyanocobalamin (VITAMIN B-12) 1,000 mcg tab Take 1 tablet by mouth once daily. ergocalciferol, vitamin D2, (VITAMIN D2 ORAL) Take by mouth. No current facility-administered medications on file prior to visit. Social History Social History Tobacco Use Smoking status: Every Day Current packs/day: 0.50 Average packs/day: 0.5 packs/day for 43.5 years (21.8 ttl pk-yrs) Types: Cigarett (more content not included)... [facility] 11-12-2024 History of Present illness Narrative Chief Complaint Patient presents with: Follow Up HPI Brenda Villalobos is a 54 year old female who presents here today for Above Complaints.. Patient presents today for 1 month follow up. Pt states she has no concerns for her health today. She has been taking her medications without complication. Patient states her anxiety has been okay she feels that it has been more controlled since her last visit. Pt states Fluoxetine has been working better than Buspar. Pt denies fever, chills, nausea, vomiting, chest pain and headaches. Past medical history, appointments, medications, allergies reviewed. 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 Has been on omeprazole, pantoprazole and prevacid with no relief of symptoms. Nexium has been helpful and dexalant Insomnia 04/12/2014 OA (osteoarthrosis) 05/18/2021 Post-menopausal Situational depression 04/19/2020 Smoker 08/12/2013 Started at the age of 11 up to 1.5 PPD Spastic bladder 10/23/2018 Varicose veins of bilateral lower extremities with other complications 04/19/2020 bleeding at times Vitamin B12 deficiency 10/25/2020 Vitamin D deficiency Well adult exam 04/17/2016 last done: 04/19/20 Previous Surgical History PAST SURGICAL HISTORY Procedure Laterality Date 48 HOUR PH STUDY 09/13/2021 Demeester score-28.6; Dr. Gresham EGD TRANSORAL BIOPSY SINGLE/MULTIPLE 05/27/2016 EGD WITH BIOPSY(S) 09/13/2021 Dr. Gresham ESOPHAGOGASTRODUODENOSCOPY TRANSORAL DIAGNOSTIC 03/16/2020 OFFICE LEEP 2001 TOTAL ABDOMINAL HYSTERECT W/WO RMVL TUBE OVARY Bilateral 2002 bso Family History FAMILY HISTORY Problem Relation Age of Onset COPD Mother Heart Mother Thyroid Mother Hypertension Mother Kidney Disease Mother Kidney failure Asthma Mother Breast Cancer Mother Seizures Brother Coronary Artery Disease Maternal Grandmother Thyroid Daughter Diabetes Son Type 1 Hypertension Son Asthma Son Alzheimer's Disease Paternal Uncle Prostate Cancer Paternal Uncle Ovarian cancer No Family History Colon Cancer No Family History Hyperlipidemia No Family History Stroke No Family History Patient Allergies ALLERGIES Allergen Reactions Medrol Dose Pack [M* Swelling Swelling of throat Bactrim [Sulfametho* Itching Carafate [Sucralfat* Other: See Comments Made her constipated Morphine Itching Trimethoprim Other: See Comments, Unknown Zoloft [Sertraline] Other: See Comments Chest felt heavy. Current Medications Current Outpatient Medications on File Prior to Visit Medication Sig FLUoxetine (PROZAC) 40 mg capsule Take 1 capsule by mouth two times a day. fluticasone-salmeterol (ADVAIR DISKUS) 250-50 mcg/dose inhaler Inhale 1 Puff as instructed two times a day. Rinse and gargle mouth after use with water. fluticasone (FLONASE) 50 mcg/actuation nasal spray Use 2 Sprays in each nostril once daily. Rinse mouth after use. SENOKOT 8.6 mg tab Take 1 tablet by mouth two times a day. busPIRone (BUSPAR) 15 mg tablet Take 1.5 tabs twice a day. levothyroxine (SYNTHROID) 88 mcg tablet Take one tab by mouth daily.Friday -Friday and none on Friday. esomeprazole (NEXIUM) 40 mg capsule Take 1 capsule by mouth two times a day before meals. tiotropium (SPIRIVA) 18 mcg inhalation capsule Inhale 1 capsule as instructed once daily. albuterol (PROVENTIL) 2.5 mg /3 mL (0.083 %) nebulizer solution Use 3 mL via nebulizer every 6 hours as needed for wheezing/shortness of breath. Use over 5-15minutes. albuterol HFA (PROAIR HFA) 90 mcg/actuation inhaler USE 2 INHALATIONS EVERY 6 HOURS INSTRUCTED NEEDED ipratropium-albuterol (DUONEB) 0.5 mg-3 mg(2.5 mg base)/3 mL nebu Inhale 3 mL as instructed two times a day. Cholecalciferol, Vitamin D3, 50 mcg (2,000 unit) cap Take 1 capsule by mouth once daily. cyanocobalamin (VITAMIN B-12) 1,000 mcg tab Take 1 tablet by mouth once daily. ergocalciferol, vitamin D2, (VITAMIN D2 ORAL) Take by mouth. No current facility-administered medications on file prior to visit. Social History Social History Tobacco Use Smoking status: Every Day Current packs/day: 0.50 Average packs/day: 0.5 packs/day for 43.5 years (21.8 ttl pk-yrs) Types: Cigarettes Start date: 1981 Smokeless tobacco: Never Tobacco comments: Both parents smoked in childhood home. 1st AM cigarette within 5 minutes of waking up. 01/30/16. TO Vaping Use Vaping status: Never Used Substance Use Topics Alcohol use: No Drug use: No Review of Symptoms REVIEW OF SYSTEMS GENERAL: No weight loss, malaise or fevers RESPIRATORY: Negative for cough, hemoptysis, wheezing, COPD, dyspnea or shortness of breath CARDIOVASCULAR: Negative for chest pain, leg swelling, hypertension, CHF or palpitations EXAM: BP 145/83 Pulse 71 Wt 62.1 kg (137 lb) BMI 24.66 kg/m General Appearance: Well appearing, alert, in no acute distress, well-hydrated, well nourished.. Lungs: Lungs clear to auscultation. No wheezing, rhonchi, rales.. Heart: RRR without murmur, gallop, or rubs. No ectopy. Health Maintenance List Pneumococcal Vaccine: 50+(1 of 2 - PCV) Never done Mammogram Screening due on 05/13/2020 Annual PCP Team Chronic Disease Visit due on 10/08/2025 Diabetes Screening due on 12/03/2026 Colorectal Cancer Screening due on 08/15/2027 DTaP,Tdap,Td Vaccine(2 - Td or Tdap) due on 04/22/2028 Lipid Screening due on 12/03/2028 Spirometry Completed Hepatitis B Vaccine Discontinued Alpha-1 Antitrypsin Deficiency Screening Discontinued Lung Cancer Screening Discontinued Cervical Cancer Screening Discontinued Influenza Vaccine Discontinued Hepatitis C Screening Discontinued HIV Screening Discontinued Shingrix Vaccine Discontinued Covid-19 Vaccine Discontinued Data reviewed MURIEL-7 10/08/2024 11/12/2024 MURIEL-7 All Questions Feeling nervous, anxious, or on edge Nearly Everyday Not at all Not being able to stop or control worrying Nearly Everyday Not at all Worrying too much about different things Nearly Everyday Not at all Trouble relaxing Nearly Everyday Not at all Being so restless that it is hard to sit still Nearly Everyday Not at all Becoming easily annoyed or irritable Nearly Everyday Several days Feeling afraid, as if something awful might happen Nearly Everyday Not at all MURIEL-7 Score 21 1 Details PHQ-9 04/18/2017 10/23/2018 10/08/2024 11/12/2024 PHQ-9 Scores Little interest or pleasure in doing things: Not at all Not at all Not at all Nearly every day Feeling down, depressed, or hopeless: Not at all Not at all Nearly every day Not at all Trouble falling or staying asleep, or sleeping too much - - Nearly every day More than half the days Feeling tired or having little energy - - Nearly every day Nearly every day Poor appetite or overeating - - Nearly every day Not at all Feeling bad about yourself - or that you are a failure or have let yourself or your family down - - Nearly every day Not at all Trouble concentrating on things, such as reading the newspaper or watching television - - Nearly every day Nearly every day Moving or speaking so slowly that other people could have noticed. Or the opposite - being so fidgety or restless that you have been moving around a lot more than usual - - Nearly every day Not at all Thoughts that you would be better off , or of hurting yourself in some way - - Not at all Not at all PHQ-9 Score - - 21 11 Details ASSESSMENT/PLAN: 1. MURIEL (generalized anxiety disorder) - ICD9: 300.02, ICD10: F41.1 - FLUOXETINE 40 MG CAPSULE 2. Situational depression - ICD9: 309.0, ICD10: F43.21 - FLUOXETINE 40 MG CAPSULE Melany Blanc APRN.RN RECRUITMENT documented in this encounter [facility] 11-12-2024 Telephone encounter Note Labs done at [facility]. View External Labs - Hematology [ID [id number]] [facility] 11-12-2024 Miscellaneous Notes Labs done at [facility]. View External Labs - Hematology [ID [id number]] documented in this encounter [facility] 11-01-2024 Telephone encounter Note Patient returns call and message reviewed. 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 Printed and placed in envelope on desk for pick-up. Saad Kessler RN [facility] 11-01-2024 Miscellaneous Notes Patient returns call and message reviewed. 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 Printed and placed in envelope on desk for pick-up. Saad Kessler RN Message left for patient to return call and request to speak with a nurse. Luzmaria Max LPN Please let patient know I would like her to repeat CBC sometime this week. Pt denies blood in stool or urine Sj Pedro MA Please find out if patient is having any bleeding in her stool or urine. Her hgb has dropped 1 point since her hgb on 10/08. Pt had labs done at [facility]. Results below. View External Labs - Hematology [ID [id number]] Dari Ozuna MA documented in this encounter [facility] 11-01-2024 Telephone encounter Note Message left for patient to return call and request to speak with a nurse. Luzmaria Max LPN [facility] 11-01-2024 Telephone encounter Note Please let patient know I would like her to repeat CBC sometime this week. [facility] 10-29-2024 Telephone encounter Note Pt denies blood in stool or urine Sj Pedro MA [facility] 10-29-2024 Telephone encounter Note Please find out if patient is having any bleeding in her stool or urine. Her hgb has dropped 1 point since her hgb on 10/08. [facility] 10-29-2024 Telephone encounter Note Pt had labs done at [facility]. Results below. View External Labs - Hematology [ID [id number]] Dari Ozuna MA [facility] 10-29-2024 Note HNO ID: [id number] Author: FRANCISCO CARVER LPN Service: ? Author Type: LICENSED NURSE Type: Progress Notes Filed: 10/29/2024 10:03 Note Text: Scan on 10/29/2024 9:27 AM by ProviderNasir PA-C: EGD [facility] 10-29-2024 History of Present illness Narrative Scan on 10/29/2024 9:27 AM by ProviderNasir PA-C: EGD documented in this encounter [facility] 10-29-2024 Hospital Discharge instructions Sadaf Tracy RN - 10/29/2024 8:25 AM EST Patient Instructions after an endoscopy or colonoscopy The anesthetics, sedatives or narcotics which were given to you today will be acting in your body for the next 24 hours, so you might feel a little sleepy or groggy. This feeling should slowly wear off. Carefully read and follow the instructions. You received sedation today: - Do not drive or operate any machinery or power tools of any kind. - No alcoholic beverages today, not even beer or wine. - Do not make any important decisions or sign any legal documents. - No over the counter medications that contain alcohol or that may cause drowsiness. - Do not make any important decisions or sign any legal documents. While it is common to experience mild to moderate abdominal distention, gas, or belching after your procedure, if any of these symptoms occur following discharge from the GI Lab or within one week of having your procedure, call the [facility] to be advised whether a visit to your nearest Urgent Care or Emergency Department is indicated. Take this paper with you if you go. - If you develop an allergic reaction to the medications that were given during your procedure such as difficulty breathing, rash, hives, severe nausea, vomiting or lightheadedness.- If you experience chest pain, shortness of breath, severe abdominal pain, fevers and chills. -If you develop signs and symptoms of bleeding such as blood in your spit, if your stools turn black, tarry, or bloody - If you have not urinated within 8 hours following your procedure.- If your IV site becomes painful, red, inflamed, or looks infected. documented in this encounter [facility] Work Phone: 10-29-2024 History and physical note History Of Present Illness Brenda Villalobos is a 54 y.o. female presenting with gerd presents for diagnostic EGD. Past Medical History Past Medical History: Diagnosis Date Anxiety Asthma COPD (chronic obstructive pulmonary disease) (Multi) Hypothyroidism Surgical History Past Surgical History: Procedure Laterality Date HYSTERECTOMY TUBAL LIGATION Social History She reports that she has been smoking cigarettes. She does not have any smokeless tobacco history on file. She reports that she does not drink alcohol. No history on file for drug use. Family History No family history on file. Allergies Allergies Allergen Reactions Methylprednisolone Swelling Swelling of throat Morphine Itching Sertraline Other Chest felt heavy. Sucralfate Constipation Made her constipated Sulfamethoxazole Itching Trimethoprim Unknown Review of Systems Pre-sedation Evaluation: ASA Classification - ASA 2 - Patient with mild systemic disease with no functional limitations Mallampati Score - II (hard and soft palate, upper portion of tonsils and uvula visible) Physical Exam Vitals and nursing note reviewed. Constitutional: Appearance: Normal appearance. HENT: Head: Normocephalic. Mouth/Throat: Mouth: Mucous membranes are moist. Pharynx: Oropharynx is clear. Eyes: Conjunctiva/sclera: Conjunctivae normal. Pupils: Pupils are equal, round, and reactive to light. Cardiovascular: Rate and Rhythm: Normal rate and regular rhythm. Heart sounds: Normal heart sounds. Pulmonary: Effort: Pulmonary effort is normal. Breath sounds: Normal breath sounds. Abdominal: General: Abdomen is flat. Bowel sounds are normal. Palpations: Abdomen is soft. Musculoskeletal: General: Normal range of motion. Cervical back: Normal range of motion and neck supple. Skin: General: Skin is warm and dry. Neurological: General: No focal deficit present. Mental Status: She is alert and oriented to person, place, and time. Psychiatric: Behavior: Behavior normal. Last Recorded Vitals Blood pressure 145/87, pulse 74, temperature 36.6 C (97.9 F), temperature source Temporal, resp. rate 18, weight 59.2 kg (130 lb 9.6 oz), SpO2 96%. 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 albuterol 90 mcg/actuation inhaler USE 2 INHALATIONS EVERY 6 HOURS INSTRUCTED NEEDED ergocalciferol, vitamin D2, (VITAMIN D2 ORAL) Take by mouth. esomeprazole (NexIUM) [address] capsule Take 1 capsule (40 mg) by mouth. FLUoxetine (PROzac) 40 mg capsule Take 1 capsule (40 mg) by mouth twice a day. fluticasone (Flonase) 50 mcg/actuation nasal spray 2 sprays by Does not apply route once daily. fluticasone propion-salmeteroL (Advair Diskus) 250-50 mcg/dose diskus inhaler Inhale 1 puff twice a day. ipratropium-albuteroL (Duo-Neb) 0.5-2.5 mg/3 mL nebulizer solution Inhale 3 mL twice a day. levothyroxine (Synthroid, Levoxyl) 88 mcg tablet Take 1 tablet (88 mcg) by mouth early in the morning.. sennosides (Senokot) 8.6 mg tablet Take 1 tablet (8.6 mg) by mouth twice a day. tiotropium (Spiriva) [address] 1 capsule (18 mcg) into inhaler and inhale once daily. No current facility-administered medications for this encounter. Clifford Rhoades DO [facility] Work Phone: 10-29-2024 History and physical note History Of Present Illness Brenda Villalobos is a 54 y.o. female presenting with gerd presents for diagnostic EGD. Past Medical History Past Medical History: Diagnosis Date Anxiety Asthma COPD (chronic obstructive pulmonary disease) (Multi) Hypothyroidism Surgical History Past Surgical History: Procedure Laterality Date HYSTERECTOMY TUBAL LIGATION Social History She reports that she has been smoking cigarettes. She does not have any smokeless tobacco history on file. She reports that she does not drink alcohol. No history on file for drug use. Family History No family history on file. Allergies Allergies Allergen Reactions Methylprednisolone Swelling Swelling of throat Morphine Itching Sertraline Other Chest felt heavy. Sucralfate Constipation Made her constipated Sulfamethoxazole Itching Trimethoprim Unknown Review of Systems Pre-sedation Evaluation: ASA Classification - ASA 2 - Patient with mild systemic disease with no functional limitations Mallampati Score - II (hard and soft palate, upper portion of tonsils and uvula visible) Physical Exam Vitals and nursing note reviewed. Constitutional: Appearance: Normal appearance. HENT: Head: Normocephalic. Mouth/Throat: Mouth: Mucous membranes are moist. Pharynx: Oropharynx is clear. Eyes: Conjunctiva/sclera: Conjunctivae normal. Pupils: Pupils are equal, round, and reactive to light. Cardiovascular: Rate and Rhythm: Normal rate and regular rhythm. Heart sounds: Normal heart sounds. Pulmonary: Effort: Pulmonary effort is normal. Breath sounds: Normal breath sounds. Abdominal: General: Abdomen is flat. Bowel sounds are normal. Palpations: Abdomen is soft. Musculoskeletal: General: Normal range of motion. Cervical back: Normal range of motion and neck supple. Skin: General: Skin is warm and dry. Neurological: General: No focal deficit present. Mental Status: She is alert and oriented to person, place, and time. Psychiatric: Behavior: Behavior normal. Last Recorded Vitals Blood pressure 145/87, pulse 74, temperature 36.6 C (97.9 F), temperature source Temporal, resp. rate 18, weight 59.2 kg (130 lb 9.6 oz), SpO2 96%. 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 albuterol 90 mcg/actuation inhaler USE 2 INHALATIONS EVERY 6 HOURS INSTRUCTED NEEDED ergocalciferol, vitamin D2, (VITAMIN D2 ORAL) Take by mouth. esomeprazole (NexIUM) [address] capsule Take 1 capsule (40 mg) by mouth. FLUoxetine (PROzac) 40 mg capsule Take 1 capsule (40 mg) by mouth twice a day. fluticasone (Flonase) 50 mcg/actuation nasal spray 2 sprays by Does not apply route once daily. fluticasone propion-salmeteroL (Advair Diskus) 250-50 mcg/dose diskus inhaler Inhale 1 puff twice a day. ipratropium-albuteroL (Duo-Neb) 0.5-2.5 mg/3 mL nebulizer solution Inhale 3 mL twice a day. levothyroxine (Synthroid, Levoxyl) 88 mcg tablet Take 1 tablet (88 mcg) by mouth early in the morning.. sennosides (Senokot) 8.6 mg tablet Take 1 tablet (8.6 mg) by mouth twice a day. tiotropium (Spiriva) [address] 1 capsule (18 mcg) into inhaler and inhale once daily. No current facility-administered medications for this encounter. Clifford Rhoades DO documented in this encounter [facility] Work Phone: 10-08-2024 Note HNO ID: [id number] Author: MELANY BLANC APRN.RN RECRUITMENT Service: ? Author Type: Nurse Practitioner Type: Progress Notes Filed: 10/08/2024 09:33 Note Text: Chief Complaint Patient presents with: Follow Up HPI Brenda Villalobos is a 54 year old female who presents here today for Above Complaints.. Patient presents for increasing anxiety. Patient reports here son has DM type 1 and it is uncontrolled causing him to have a lot of health issues. Son lives with her and so this is a very stressful situation. Patient reports her anxiety was controlled but over the last few months it has been increasing and is now uncontrolled. Buspar is ineffective and she waskes up daily with anxiety and panic. Past medical history, appointments, medications, allergies reviewed. 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 Has been on omeprazole, pantoprazole and prevacid with no relief of symptoms. Nexium has been helpful and dexalant Insomnia 04/12/2014 OA (osteoarthrosis) 05/18/2021 Post-menopausal Situational depression 04/19/2020 Smoker 08/12/2013 Started at the age of 11 up to 1.5 PPD Spastic bladder 10/23/2018 Varicose veins of bilateral lower extremities with other complications 04/19/2020 bleeding at times Vitamin B12 deficiency 10/25/2020 Vitamin D deficiency Well adult exam 04/17/2016 last done: 04/19/20 Previous Surgical History PAST SURGICAL HISTORY Procedure Laterality Date 48 HOUR PH STUDY 09/13/2021 Demeester score-28.6; Dr. Gresham EGD TRANSORAL BIOPSY SINGLE/MULTIPLE 05/27/2016 EGD WITH BIOPSY(S) 09/13/2021 Dr. Gresham ESOPHAGOGASTRODUODENOSCOPY TRANSORAL DIAGNOSTIC 03/16/2020 OFFICE LEEP 2001 TOTAL ABDOMINAL HYSTERECT W/WO RMVL TUBE OVARY Bilateral 2002 bso Family History FAMILY HISTORY Problem Relation Age of Onset COPD Mother Heart Mother Thyroid Mother Hypertension Mother Kidney Disease Mother Kidney failure Asthma Mother Breast Cancer Mother Seizures Brother Coronary Artery Disease Maternal Grandmother Thyroid Daughter Diabetes Son Type 1 Hypertension Son Asthma Son Alzheimer's Disease Paternal Uncle Prostate Cancer Paternal Uncle Ovarian cancer No Family History Colon Cancer No Family History Hyperlipidemia No Family History Stroke No Family History Patient Allergies ALLERGIES Allergen Reactions Medrol Dose Pack [M* Swelling Swelling of throat Bactrim [Sulfametho* Itching Carafate [Sucralfat* Other: See Comments Made her constipated Morphine Itching Trimethoprim Other: See Comments, Unknown Zoloft [Sertraline] Other: See Comments Chest felt heavy. Current Medications Current Outpatient Medications on File Prior to Visit Medication Sig fluticasone-salmeterol (ADVAIR DISKUS) 250-50 mcg/dose inhaler Inhale 1 Puff as instructed two times a day. Rinse and gargle mouth after use with water. fluticasone (FLONASE) 50 mcg/actuation nasal spray Use 2 Sprays in each nostril once daily. Rinse mouth after use. SENOKOT 8.6 mg tab Take 1 tablet by mouth two times a day. busPIRone (BUSPAR) 15 mg tablet Take 1.5 tabs twice a day. FLUoxetine (PROZAC) 40 mg capsule Take 1 capsule by mouth once daily. levothyroxine (SYNTHROID) 88 mcg tablet Take one tab by mouth daily.Friday -Friday and none on Friday. esomeprazole (NEXIUM) 40 mg capsule Take 1 capsule by mouth two times a day before meals. tiotropium (SPIRIVA) 18 mcg inhalation capsule Inhale 1 capsule as instructed once daily. albuterol (PROVENTIL) 2.5 mg /3 mL (0.083 %) nebulizer solution Use 3 mL via nebulizer every 6 hours as needed for wheezing/shortness of breath. Use over 5-15minutes. albuterol HFA (PROAIR HFA) 90 mcg/actuation inhaler USE 2 INHALATIONS EVERY 6 HOURS INSTRUCTED NEEDED ipratropium-albuterol (DUONEB) 0.5 mg-3 mg(2.5 mg base)/3 mL nebu Inhale 3 mL as instructed two times a day. Cholecalciferol, Vitamin D3, 50 mcg (2,000 unit) cap Take 1 capsule by mouth once daily. ergocalciferol, vitamin D2, (VITAMIN D2 ORAL) Take by mouth. cyanocobalamin (VITAMIN B-12) 1,000 mcg tab Take 1 tablet by mouth once daily. No current facility-administered medications on file prior to visit. Social History Social History Tobacco Use Smoking status: Every Day Current packs/day: 0.50 Average packs/day: 0.5 packs/day for 43.4 years (21.7 ttl pk-yrs) Types: Cig (more content not included)... [facility] 10-08-2024 History of Present illness Narrative Chief Complaint Patient presents with: Follow Up HPI Brenda Villalobos is a 54 year old female who presents here today for Above Complaints.. Patient presents for increasing anxiety. Patient reports here son has DM type 1 and it is uncontrolled causing him to have a lot of health issues. Son lives with her and so this is a very stressful situation. Patient reports her anxiety was controlled but over the last few months it has been increasing and is now uncontrolled. Buspar is ineffective and she waskes up daily with anxiety and panic. Past medical history, appointments, medications, allergies reviewed. 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 Has been on omeprazole, pantoprazole and prevacid with no relief of symptoms. Nexium has been helpful and dexalant Insomnia 04/12/2014 OA (osteoarthrosis) 05/18/2021 Post-menopausal Situational depression 04/19/2020 Smoker 08/12/2013 Started at the age of 11 up to 1.5 PPD Spastic bladder 10/23/2018 Varicose veins of bilateral lower extremities with other complications 04/19/2020 bleeding at times Vitamin B12 deficiency 10/25/2020 Vitamin D deficiency Well adult exam 04/17/2016 last done: 04/19/20 Previous Surgical History PAST SURGICAL HISTORY Procedure Laterality Date 48 HOUR PH STUDY 09/13/2021 Demeester score-28.6; Dr. Gresham EGD TRANSORAL BIOPSY SINGLE/MULTIPLE 05/27/2016 EGD WITH BIOPSY(S) 09/13/2021 Dr. Gresham ESOPHAGOGASTRODUODENOSCOPY TRANSORAL DIAGNOSTIC 03/16/2020 OFFICE LEEP 2001 TOTAL ABDOMINAL HYSTERECT W/WO RMVL TUBE OVARY Bilateral 2002 bso Family History FAMILY HISTORY Problem Relation Age of Onset COPD Mother Heart Mother Thyroid Mother Hypertension Mother Kidney Disease Mother Kidney failure Asthma Mother Breast Cancer Mother Seizures Brother Coronary Artery Disease Maternal Grandmother Thyroid Daughter Diabetes Son Type 1 Hypertension Son Asthma Son Alzheimer's Disease Paternal Uncle Prostate Cancer Paternal Uncle Ovarian cancer No Family History Colon Cancer No Family History Hyperlipidemia No Family History Stroke No Family History Patient Allergies ALLERGIES Allergen Reactions Medrol Dose Pack [M* Swelling Swelling of throat Bactrim [Sulfametho* Itching Carafate [Sucralfat* Other: See Comments Made her constipated Morphine Itching Trimethoprim Other: See Comments, Unknown Zoloft [Sertraline] Other: See Comments Chest felt heavy. Current Medications Current Outpatient Medications on File Prior to Visit Medication Sig fluticasone-salmeterol (ADVAIR DISKUS) 250-50 mcg/dose inhaler Inhale 1 Puff as instructed two times a day. Rinse and gargle mouth after use with water. fluticasone (FLONASE) 50 mcg/actuation nasal spray Use 2 Sprays in each nostril once daily. Rinse mouth after use. SENOKOT 8.6 mg tab Take 1 tablet by mouth two times a day. busPIRone (BUSPAR) 15 mg tablet Take 1.5 tabs twice a day. FLUoxetine (PROZAC) 40 mg capsule Take 1 capsule by mouth once daily. levothyroxine (SYNTHROID) 88 mcg tablet Take one tab by mouth daily.Friday -Friday and none on Friday. esomeprazole (NEXIUM) 40 mg capsule Take 1 capsule by mouth two times a day before meals. tiotropium (SPIRIVA) 18 mcg inhalation capsule Inhale 1 capsule as instructed once daily. albuterol (PROVENTIL) 2.5 mg /3 mL (0.083 %) nebulizer solution Use 3 mL via nebulizer every 6 hours as needed for wheezing/shortness of breath. Use over 5-15minutes. albuterol HFA (PROAIR HFA) 90 mcg/actuation inhaler USE 2 INHALATIONS EVERY 6 HOURS INSTRUCTED NEEDED ipratropium-albuterol (DUONEB) 0.5 mg-3 mg(2.5 mg base)/3 mL nebu Inhale 3 mL as instructed two times a day. Cholecalciferol, Vitamin D3, 50 mcg (2,000 unit) cap Take 1 capsule by mouth once daily. ergocalciferol, vitamin D2, (VITAMIN D2 ORAL) Take by mouth. cyanocobalamin (VITAMIN B-12) 1,000 mcg tab Take 1 tablet by mouth once daily. No current facility-administered medications on file prior to visit. Social History Social History Tobacco Use Smoking status: Every Day Current packs/day: 0.50 Average packs/day: 0.5 packs/day for 43.4 years (21.7 ttl pk-yrs) Types: Cigarettes Start date: 1981 Smokeless tobacco: Never Tobacco comments: Both parents smoked in childhood home. 1st AM cigarette within 5 minutes of waking up. 01/30/16. TO Vaping Use Vaping status: Never Used Substance Use Topics Alcohol use: No Drug use: No Review of Symptoms REVIEW OF SYSTEMS SEE HPI EXAM: BP 118/79 Pulse 89 Wt 59 kg (130 lb) BMI 23.40 kg/m General Appearance: Well appearing, alert, in no acute distress, well-hydrated, well nourished. Lungs: Lungs clear to auscultation. No wheezing, rhonchi, rales.. Heart: RRR without murmur, gallop, or rubs. No ectopy. Health Maintenance List Pneumococcal Vaccine: 50+(1 of 2 - PCV) Never done Mammogram Screening due on 05/13/2020 Annual PCP Team Chronic Disease Visit due on 08/17/2025 Diabetes Screening due on 12/03/2026 Colorectal Cancer Screening due on 08/15/2027 DTaP,Tdap,Td Vaccine(2 - Td or Tdap) due on 04/22/2028 Lipid Screening due on 12/03/2028 Spirometry Completed Hepatitis B Vaccine Discontinued Alpha-1 Antitrypsin Deficiency Screening Discontinued Lung Cancer Screening Discontinued Cervical Cancer Screening Discontinued Influenza Vaccine Discontinued Hepatitis C Screening Discontinued HIV Screening Discontinued Shingrix Vaccine Discontinued Covid-19 Vaccine Discontinued PHQ-9 04/18/2017 10/23/2018 10/08/2024 PHQ-9 Scores Little interest or pleasure in doing things: Not at all Not at all Not at all Feeling down, depressed, or hopeless: Not at all Not at all Nearly every day Trouble falling or staying asleep, or sleeping too much - - Nearly every day Feeling tired or having little energy - - Nearly every day Poor appetite or overeating - - Nearly every day Feeling bad about yourself - or that you are a failure or have let yourself or your family down - - Nearly every day Trouble concentrating on things, such as reading the newspaper or watching television - - Nearly every day Moving or speaking so slowly that other people could have noticed. Or the opposite - being so fidgety or restless that you have been moving around a lot more than usual - - Nearly every day Thoughts that you would be better off , or of hurting yourself in some way - - Not at all PHQ-9 Score - - 21 Details MURIEL-7 10/08/2024 MURIEL-7 All Questions Feeling nervous, anxious, or on edge Nearly Everyday Not being able to stop or control worrying Nearly Everyday Worrying too much about different things Nearly Everyday Trouble relaxing Nearly Everyday Being so restless that it is hard to sit still Nearly Everyday Becoming easily annoyed or irritable Nearly Everyday Feeling afraid, as if something awful might happen Nearly Everyday MURIEL-7 Score 21 Details ASSESSMENT/PLAN: 1. MURIEL (generalized anxiety disorder) - ICD9: 300.02, ICD10: F41.1 (primary diagnosis) - FLUOXETINE 40 MG CAPSULE 2. Situational depression - ICD9: 309.0, ICD10: F43.21 - FLUOXETINE 40 MG CAPSULE Melany Blanc APRN.RN RECRUITMENT documented in this encounter [facility] 09-30-2024 Telephone encounter Note All info has been faxed to Dr Rhoades [phone]. Asked that they contact pt to schedule appointment. Advised pt of same via and gave her office phone number. Francisco Carver LPN [facility] 09-30-2024 Miscellaneous Notes All info has been faxed to Dr Rhoades [phone]. Asked that they contact pt to schedule appointment. Advised pt of same via and gave her office phone number. Francisco Carver LPN Order placed with name and office number for provider Please see pt's message. Francisco Carver LPN documented in this encounter [facility] 09-30-2024 Telephone encounter Note Order placed with name and office number for provider [facility] 09-30-2024 Telephone encounter Note Please see pt's message. Francisco Carver LPN [facility] 09-21-2024 Telephone encounter Note The following approved medication requests have been transmitted electronically. Requested Prescriptions Signed Prescriptions Disp Refills fluticasone-salmeterol (ADVAIR DISKUS) 250-50 mcg/dose inhaler 1 Each 3 Sig: Inhale 1 Puff as instructed two times a day. Rinse and gargle mouth after use with water. Fortino Logan MD [facility] 09-21-2024 Miscellaneous Notes The following approved medication requests have been transmitted electronically. Requested Prescriptions Signed Prescriptions Disp Refills fluticasone-salmeterol (ADVAIR DISKUS) 250-50 mcg/dose inhaler 1 Each 3 Sig: Inhale 1 Puff as instructed two times a day. Rinse and gargle mouth after use with water. Fortino Logan MD Patient has been identified by name and date of : yes Patient phones for refill(s): Requested Prescriptions Pending Prescriptions Disp Refills fluticasone-salmeterol (ADVAIR DISKUS) 250-50 mcg/dose inhaler 1 Each 3 Sig: Inhale 1 Puff as instructed two times a day. Rinse and gargle mouth after use with water. Date of last office visit in primary care: 08/17/2024 Date of next office visit in primary care: 01/26/2025 Please advise. Thank you. Jhoana Bernal MA. documented in this encounter [facility] 09-21-2024 Telephone encounter Note Patient has been identified by name and date of : yes Patient phones for refill(s): Requested Prescriptions Pending Prescriptions Disp Refills fluticasone-salmeterol (ADVAIR DISKUS) 250-50 mcg/dose inhaler 1 Each 3 Sig: Inhale 1 Puff as instructed two times a day. Rinse and gargle mouth after use with water. Date of last office visit in primary care: 08/17/2024 Date of next office visit in primary care: 01/26/2025 Please advise. Thank you. Jhoana Bernal MA. [facility] 08-24-2024 Telephone encounter Note Patient notified of results and provider's instructions. Patient verbalizes understanding. Francisco Carver LPN [facility] 08-24-2024 Miscellaneous Notes Patient notified of results and provider's instructions. Patient verbalizes understanding. Francisco Carver LPN ----- Message from Bailey Williamson PA-C sent at 08/24/2024 7:49 AM EST ----- Sent via [facility] as well Your Cologuard test came back negative (low risk of colorectal cancer). I recommend repeating colorectal cancer screening in 3 years. documented in this encounter [facility] 08-24-2024 Telephone encounter Note ----- Message from Bailey Williamson PA-C sent at 08/24/2024 7:49 AM EST ----- Sent via [facility] as well Your Cologuard test came back negative (low risk of colorectal cancer). I recommend repeating colorectal cancer screening in 3 years. [facility] 08-17-2024 Note HNO ID: [id number] Author: MELANY BLANC APRN.RN RECRUITMENT Service: ? Author Type: Nurse Practitioner Type: Progress Notes Filed: 08/17/2024 14:49 Note Text: Chief Complaint Patient presents with: Follow Up HPI Brenda Villalobos is a 54 year old female who presents here today for Above Complaints.. Patient presents for BP check. Past medical history, appointments, medications, allergies reviewed. 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 Has been on omeprazole, pantoprazole and prevacid with no relief of symptoms. Nexium has been helpful and dexalant Insomnia 04/12/2014 OA (osteoarthrosis) 05/18/2021 Post-menopausal Situational depression 04/19/2020 Smoker 08/12/2013 Started at the age of 11 up to 1.5 PPD Spastic bladder 10/23/2018 Varicose veins of bilateral lower extremities with other complications 04/19/2020 bleeding at times Vitamin B12 deficiency 10/25/2020 Vitamin D deficiency Well adult exam 04/17/2016 last done: 04/19/20 Previous Surgical History PAST SURGICAL HISTORY Procedure Laterality Date 48 HOUR PH STUDY 09/13/2021 Demeester score-28.6; Dr. Gresham EGD TRANSORAL BIOPSY SINGLE/MULTIPLE 05/27/2016 EGD WITH BIOPSY(S) 09/13/2021 Dr. Gresham ESOPHAGOGASTRODUODENOSCOPY TRANSORAL DIAGNOSTIC 03/16/2020 OFFICE LEEP 2001 TOTAL ABDOMINAL HYSTERECT W/WO RMVL TUBE OVARY Bilateral 2002 bso Family History FAMILY HISTORY Problem Relation Age of Onset COPD Mother Heart Mother Thyroid Mother Hypertension Mother Kidney Disease Mother Kidney failure Asthma Mother Breast Cancer Mother Seizures Brother Coronary Artery Disease Maternal Grandmother Thyroid Daughter Diabetes Son Type 1 Hypertension Son Asthma Son Alzheimer's Disease Paternal Uncle Prostate Cancer Paternal Uncle Ovarian cancer No Family History Colon Cancer No Family History Hyperlipidemia No Family History Stroke No Family History Patient Allergies ALLERGIES Allergen Reactions Medrol Dose Pack [M* Swelling Swelling of throat Bactrim [Sulfametho* Itching Carafate [Sucralfat* Other: See Comments Made her constipated Morphine Itching Trimethoprim Other: See Comments, Unknown Zoloft [Sertraline] Other: See Comments Chest felt heavy. Current Medications Current Outpatient Medications on File Prior to Visit Medication Sig fluticasone (FLONASE) 50 mcg/actuation nasal spray Use 2 Sprays in each nostril once daily. Rinse mouth after use. SENOKOT 8.6 mg tab Take 1 tablet by mouth two times a day. busPIRone (BUSPAR) 15 mg tablet Take 1.5 tabs twice a day. FLUoxetine (PROZAC) 40 mg capsule Take 1 capsule by mouth once daily. levothyroxine (SYNTHROID) 88 mcg tablet Take one tab by mouth daily.Friday -Friday and none on Friday. esomeprazole (NEXIUM) 40 mg capsule Take 1 capsule by mouth two times a day before meals. tiotropium (SPIRIVA) 18 mcg inhalation capsule Inhale 1 capsule as instructed once daily. albuterol (PROVENTIL) 2.5 mg /3 mL (0.083 %) nebulizer solution Use 3 mL via nebulizer every 6 hours as needed for wheezing/shortness of breath. Use over 5-15minutes. albuterol HFA (PROAIR HFA) 90 mcg/actuation inhaler USE 2 INHALATIONS EVERY 6 HOURS INSTRUCTED NEEDED fluticasone-salmeterol (ADVAIR DISKUS) 250-50 mcg/dose inhaler Inhale 1 Puff as instructed two times a day. Rinse and gargle mouth after use with water. ipratropium-albuterol (DUONEB) 0.5 mg-3 mg(2.5 mg base)/3 mL nebu Inhale 3 mL as instructed two times a day. Cholecalciferol, Vitamin D3, 50 mcg (2,000 unit) cap Take 1 capsule by mouth once daily. cyanocobalamin (VITAMIN B-12) 1,000 mcg tab Take 1 tablet by mouth once daily. ergocalciferol, vitamin D2, (VITAMIN D2 ORAL) Take by mouth. No current facility-administered medications on file prior to visit. Social History Social History Tobacco Use Smoking status: Every Day Current packs/day: 0.50 Average packs/day: 0.5 packs/day for 43.3 years (21.6 ttl pk-yrs) Types: Cigarettes Start date: 1981 Smokeless tobacco: Never Tobacco comments: Both parents smoked in childhood home. 1st AM cigarette within 5 minutes of waking up. 01/30/16. TO Vaping Use Vaping status: Never Used Substance Use Topics Alcohol use: No Drug use: No Review of Symptoms REVIEW OF SYSTEMS SEE HPI EXAM: BP 125/83 Pulse 76 Resp 16 Wt 5 (more content not included)... [facility] 08-17-2024 History of Present illness Narrative Chief Complaint Patient presents with: Follow Up HPI Brenda Villalobos is a 54 year old female who presents here today for Above Complaints.. Patient presents for BP check. Past medical history, appointments, medications, allergies reviewed. 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 Has been on omeprazole, pantoprazole and prevacid with no relief of symptoms. Nexium has been helpful and dexalant Insomnia 04/12/2014 OA (osteoarthrosis) 05/18/2021 Post-menopausal Situational depression 04/19/2020 Smoker 08/12/2013 Started at the age of 11 up to 1.5 PPD Spastic bladder 10/23/2018 Varicose veins of bilateral lower extremities with other complications 04/19/2020 bleeding at times Vitamin B12 deficiency 10/25/2020 Vitamin D deficiency Well adult exam 04/17/2016 last done: 04/19/20 Previous Surgical History PAST SURGICAL HISTORY Procedure Laterality Date 48 HOUR PH STUDY 09/13/2021 Demeester score-28.6; Dr. Gresham EGD TRANSORAL BIOPSY SINGLE/MULTIPLE 05/27/2016 EGD WITH BIOPSY(S) 09/13/2021 Dr. Gresham ESOPHAGOGASTRODUODENOSCOPY TRANSORAL DIAGNOSTIC 03/16/2020 OFFICE LEEP 2001 TOTAL ABDOMINAL HYSTERECT W/WO RMVL TUBE OVARY Bilateral 2002 bso Family History FAMILY HISTORY Problem Relation Age of Onset COPD Mother Heart Mother Thyroid Mother Hypertension Mother Kidney Disease Mother Kidney failure Asthma Mother Breast Cancer Mother Seizures Brother Coronary Artery Disease Maternal Grandmother Thyroid Daughter Diabetes Son Type 1 Hypertension Son Asthma Son Alzheimer's Disease Paternal Uncle Prostate Cancer Paternal Uncle Ovarian cancer No Family History Colon Cancer No Family History Hyperlipidemia No Family History Stroke No Family History Patient Allergies ALLERGIES Allergen Reactions Medrol Dose Pack [M* Swelling Swelling of throat Bactrim [Sulfametho* Itching Carafate [Sucralfat* Other: See Comments Made her constipated Morphine Itching Trimethoprim Other: See Comments, Unknown Zoloft [Sertraline] Other: See Comments Chest felt heavy. Current Medications Current Outpatient Medications on File Prior to Visit Medication Sig fluticasone (FLONASE) 50 mcg/actuation nasal spray Use 2 Sprays in each nostril once daily. Rinse mouth after use. SENOKOT 8.6 mg tab Take 1 tablet by mouth two times a day. busPIRone (BUSPAR) 15 mg tablet Take 1.5 tabs twice a day. FLUoxetine (PROZAC) 40 mg capsule Take 1 capsule by mouth once daily. levothyroxine (SYNTHROID) 88 mcg tablet Take one tab by mouth daily.Friday -Friday and none on Friday. esomeprazole (NEXIUM) 40 mg capsule Take 1 capsule by mouth two times a day before meals. tiotropium (SPIRIVA) 18 mcg inhalation capsule Inhale 1 capsule as instructed once daily. albuterol (PROVENTIL) 2.5 mg /3 mL (0.083 %) nebulizer solution Use 3 mL via nebulizer every 6 hours as needed for wheezing/shortness of breath. Use over 5-15minutes. albuterol HFA (PROAIR HFA) 90 mcg/actuation inhaler USE 2 INHALATIONS EVERY 6 HOURS INSTRUCTED NEEDED fluticasone-salmeterol (ADVAIR DISKUS) 250-50 mcg/dose inhaler Inhale 1 Puff as instructed two times a day. Rinse and gargle mouth after use with water. ipratropium-albuterol (DUONEB) 0.5 mg-3 mg(2.5 mg base)/3 mL nebu Inhale 3 mL as instructed two times a day. Cholecalciferol, Vitamin D3, 50 mcg (2,000 unit) cap Take 1 capsule by mouth once daily. cyanocobalamin (VITAMIN B-12) 1,000 mcg tab Take 1 tablet by mouth once daily. ergocalciferol, vitamin D2, (VITAMIN D2 ORAL) Take by mouth. No current facility-administered medications on file prior to visit. Social History Social History Tobacco Use Smoking status: Every Day Current packs/day: 0.50 Average packs/day: 0.5 packs/day for 43.3 years (21.6 ttl pk-yrs) Types: Cigarettes Start date: 1981 Smokeless tobacco: Never Tobacco comments: Both parents smoked in childhood home. 1st AM cigarette within 5 minutes of waking up. 01/30/16. TO Vaping Use Vaping status: Never Used Substance Use Topics Alcohol use: No Drug use: No Review of Symptoms REVIEW OF SYSTEMS SEE HPI EXAM: BP 125/83 Pulse 76 Resp 16 Wt 58.5 kg (129 lb) BMI 23.22 kg/m General Appearance: Well appearing, alert, in no acute distress, well-hydrated, well nourished.. Health Maintenance List Colorectal Cancer Screening Never done Mammogram Screening due on 05/13/2020 Annual PCP Team Chronic Disease Visit due on 07/27/2025 Diabetes Screening due on 12/03/2026 DTaP,Tdap,Td Vaccine(2 - Td or Tdap) due on 04/22/2028 Lipid Screening due on 12/03/2028 Spirometry Completed Hepatitis B Vaccine Discontinued Alpha-1 Antitrypsin Deficiency Screening Discontinued Lung Cancer Screening Discontinued Cervical Cancer Screening Discontinued Influenza Vaccine Discontinued Hepatitis C Screening Discontinued HIV Screening Discontinued Shingrix Vaccine Discontinued Covid-19 Vaccine Discontinued Pneumococcal Vaccine Discontinued Data reviewed Last 5 Encounter BP Readings: Date: BP: 08/17/2024 125/83 07/27/2024 150/86[true BP average[ 07/06/2024 138/98 05/31/2024 142/92 04/14/2024 134/82 ASSESSMENT/PLAN: 1. Elevated BP without diagnosis of hypertension - ICD9: 796.2, ICD10: R03.0 Transient BP elevation - Encouraged dietary sodium restriction/DASH diet - Recommended regular aerobic exercise. - Recommend home blood pressure monitoring, to bring results in on next visit - Goal of BP <130/80 Melany Blanc APRN.RN RECRUITMENT documented in this encounter [facility] 07-27-2024 Nurse Note 150/86 Tj BP average 160/81 154/88 148/88 150/86 154/82 146/84 [facility] 07-27-2024 Nurse Note 150/86 Tj BP average 160/81 154/88 148/88 150/86 154/82 146/84 documented in this encounter [facility] 07-27-2024 History of Present illness Narrative Chief Complaint Patient presents with: Physical HPI Brenda Villalobos is a 54 year old female who presents here today for Physical. Patient with COPD, dyslipidemia, hypothyroidism, insomnia, elevated fasting blood sugar, smoker, GERD, MURIEL, Depression, Vit D def and Vit B12 def as well as those reviewed and addressed below and in ROS. Patient has been doing better since being on the Prozac and buspar. Past medical history, appointments, medications, allergies reviewed. 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 Has been on omeprazole, pantoprazole and prevacid with no relief of symptoms. Nexium has been helpful and dexalant Insomnia 04/12/2014 OA (osteoarthrosis) 05/18/2021 Post-menopausal Situational depression 04/19/2020 Smoker 08/12/2013 Started at the age of 11 up to 1.5 PPD Spastic bladder 10/23/2018 Varicose veins of bilateral lower extremities with other complications 04/19/2020 bleeding at times Vitamin B12 deficiency 10/25/2020 Vitamin D deficiency Well adult exam 04/17/2016 last done: 04/19/20 Previous Surgical History PAST SURGICAL HISTORY Procedure Laterality Date 48 HOUR PH STUDY 09/13/2021 Demeester score-28.6; Dr. Gresham EGD TRANSORAL BIOPSY SINGLE/MULTIPLE 05/27/2016 EGD WITH BIOPSY(S) 09/13/2021 Dr. Gresham ESOPHAGOGASTRODUODENOSCOPY TRANSORAL DIAGNOSTIC 03/16/2020 OFFICE LEEP 2001 TOTAL ABDOMINAL HYSTERECT W/WO RMVL TUBE OVARY Bilateral 2002 bso Family History FAMILY HISTORY Problem Relation Age of Onset COPD Mother Heart Mother Thyroid Mother Hypertension Mother Kidney Disease Mother Kidney failure Asthma Mother Breast Cancer Mother Seizures Brother Coronary Artery Disease Maternal Grandmother Thyroid Daughter Diabetes Son Type 1 Hypertension Son Asthma Son Alzheimer's Disease Paternal Uncle Prostate Cancer Paternal Uncle Ovarian cancer No Family History Colon Cancer No Family History Hyperlipidemia No Family History Stroke No Family History Patient Allergies ALLERGIES Allergen Reactions Medrol Dose Pack [M* Swelling Swelling of throat Bactrim [Sulfametho* Itching Carafate [Sucralfat* Other: See Comments Made her constipated Morphine Itching Trimethoprim Other: See Comments, Unknown Zoloft [Sertraline] Other: See Comments Chest felt heavy. Current Medications Current Outpatient Medications on File Prior to Visit Medication Sig fluticasone (FLONASE) 50 mcg/actuation nasal spray Use 2 Sprays in each nostril once daily. Rinse mouth after use. cefADROxil (DURICEF) 500 mg capsule Take 1 capsule by mouth two times a day. SENOKOT 8.6 mg tab Take 1 tablet by mouth two times a day. busPIRone (BUSPAR) 15 mg tablet Take 1.5 tabs twice a day. FLUoxetine (PROZAC) 40 mg capsule Take 1 capsule by mouth once daily. levothyroxine (SYNTHROID) 88 mcg tablet Take one tab by mouth daily.Friday -Friday and none on Friday. esomeprazole (NEXIUM) 40 mg capsule Take 1 capsule by mouth two times a day before meals. tiotropium (SPIRIVA) 18 mcg inhalation capsule Inhale 1 capsule as instructed once daily. albuterol (PROVENTIL) 2.5 mg /3 mL (0.083 %) nebulizer solution Use 3 mL via nebulizer every 6 hours as needed for wheezing/shortness of breath. Use over 5-15minutes. albuterol HFA (PROAIR HFA) 90 mcg/actuation inhaler USE 2 INHALATIONS EVERY 6 HOURS INSTRUCTED NEEDED fluticasone-salmeterol (ADVAIR DISKUS) 250-50 mcg/dose inhaler Inhale 1 Puff as instructed two times a day. Rinse and gargle mouth after use with water. ipratropium-albuterol (DUONEB) 0.5 mg-3 mg(2.5 mg base)/3 mL nebu Inhale 3 mL as instructed two times a day. Cholecalciferol, Vitamin D3, 50 mcg (2,000 unit) cap Take 1 capsule by mouth once daily. cyanocobalamin (VITAMIN B-12) 1,000 mcg tab Take 1 tablet by mouth once daily. ergocalciferol, vitamin D2, (VITAMIN D2 ORAL) Take by mouth. No current facility-administered medications on file prior to visit. Social History Social History Tobacco Use Smoking status: Every Day Current packs/day: 0.50 Average packs/day: 0.5 packs/day for 43.2 years (21.6 ttl pk-yrs) Types: Cigarettes Start date: 1981 Smokeless tobacco: Never Tobacco comments: Both parents smoked in childhood home. 1st AM cigarette within 5 minutes of waking up. 01/30/16. TO Vaping Use Vaping status: Never Used Substance Use Topics Alcohol use: No Drug use: No Review of Symptoms REVIEW OF SYSTEMS GENERAL: No weight loss, malaise or fevers HEENT: Negative for frequent or significant headaches, No changes in hearing or vision, no nose bleeds or other nasal problems. Nose doing better and no further headache's since starting on Flonase. NECK: Negative for lumps, goiter, pain and significant neck swelling RESPIRATORY: Negative for cough, hemoptysis, increased wheezing, COPD, dyspnea or shortness of breath CARDIOVASCULAR: Negative for chest pain, leg swelling, hypertension, CHF or palpitations GI: No vomiting, or diarrhea. Has nausea daily and constant GERD with discomfort in the Epigastric area. : No history of dysuria, frequency or blood MUSCULOSKELETAL: Negative for joint pain or swelling, back pain or muscle pain SKIN: Negative for lesions, rash, and itching PSYCH: Negative for sleep disturbance, mood disorder and recent psychosocial stressors HEMATOLOGY/LYMPHOLOGY: Negative for prolonged bleeding, bruising easily or swollen nodes ENDOCRINE: Negative for cold or heat intolerance, polyuria, polydipsia and goiter NEURO: No history of headaches, syncope, paralysis, seizures or tremors EXAM: BP 138/92 (BP Site: Right Arm, BP Position: Sitting, BP Cuff Size: Regular Adult) Pulse 76 Resp 16 Ht 158.8 cm (5' 2.5) Wt 57.6 kg (127 lb) BMI 22.86 kg/m BP 144/98 Pulse 76 Resp 16 Ht 158.8 cm (5' 2.5) Wt 57.6 kg (127 lb) BMI 22.86 kg/m BP 150/86 Pulse 76 Resp 16 Ht 158.8 cm (5' 2.5) Wt 57.6 kg (127 lb) BMI 22.86 kg/m Last 5 Encounter BP Readings: Date: BP: 07/27/2024 144/98 07/06/2024 138/98 05/31/2024 142/92 04/14/2024 134/82 12/05/2023 130/76 Last 5 Encounter Wt Readings: Date: Wt: 07/27/2024 57.6 kg (127 lb) 07/06/2024 56.2 kg (124 lb) 05/31/2024 53.5 kg (118 lb) 04/14/2024 52.2 kg (115 lb) 12/05/2023 54 kg (119 lb) General Appearance: Well appearing, alert, in no acute distress, well-hydrated, well nourished.. Skin: Skin color, texture, turgor normal, no suspicious rashes or lesions. Head: Normocephalic, no masses, lesions, tenderness or abnormalities. Eyes: Anicteric sclera. Pupils are equally round and reactive to light. Extraocular movements are intact. . Ears: External ears, TM's normal, canals clear. Nose/Sinuses: Nares normal, septum midline, mucosa normal, no drainage or sinus tenderness. Oropharynx: Lips, mucosa, and tongue normal, teeth and gums normal, oropharynx normal. Neck: Supple, no adenopathy; thyroid symmetric, normal size, no bruits. Lungs: No rhonchi, rales. Mild wheezing in bases. Heart: RRR without murmur, gallop, or rubs. No ectopy. Abdomen: Abdomen soft, non-distended. Mild epigastric tenderness. Bowel sounds normal. No masses, organomegaly. Extremities: No deformities, edema, skin discoloration, Good capillary refill. . Musculoskeletal: Muscular strength intact, No joint swelling, deformity, or tenderness. Peripheral Pulses: Normal. Neurologic: Gait normal. Reflexes normal and symmetric. Sensation to light touch and crainal nerves 2-12 intact.. Health Maintenance List Colorectal Cancer Screening Never done Lung Cancer Screening Never done Mammogram Screening due on 05/13/2020 Covid-19 Vaccine(1 - 2024-25 season) Never done Annual PCP Team Chronic Disease Visit due on 07/06/2025 Diabetes Screening due on 12/03/2026 DTaP,Tdap,Td Vaccine(2 - Td or Tdap) due on 04/22/2028 Lipid Screening due on 12/03/2028 Spirometry Completed Hepatitis B Vaccine Discontinued Alpha-1 Antitrypsin Deficiency Screening Discontinued Cervical Cancer Screening Discontinued Influenza Vaccine Discontinued Hepatitis C Screening Discontinued HIV Screening Discontinued Shingrix Vaccine Discontinued Pneumococcal Vaccine Discontinued Data reviewed CMP, TSH, amylase and Lipase wee normal from 06/07/2024. A/P ASSESSMENT/PLAN: 1. Well adult exam - ICD9: V70.0, ICD10: Z00.00 (primary diagnosis) - Counseled on healthy diet and regular exercise - Follow up for annual exam in one year 2. Acquired hypothyroidism - ICD9: 244.9, ICD10: E03.9 - Instructed patient on importance of taking on an empty stomach either first thing in the morning or at bedtime. - continue current dose of Synthroid - COMPLETE BLOOD COUNT AND DIFFERENTIAL 3. Dyslipidemia - ICD9: 272.4, ICD10: E78.5 - Control undetermined, due for labs - Counseled on healthy diet and regular exercise - LIPID PANEL, NONFASTING 4. Elevated fasting blood sugar - ICD9: 790.21, ICD10: R73.01 Check - HEMOGLOBIN A1C 5. Gastroesophageal reflux disease with esophagitis without hemorrhage - ICD9: 530.81, 530.10, ICD10: K21.00 - Continue treatment with Nexium 40 mg BID 6. COPD with asthma (HCC) - ICD9: 493.20, ICD10: J44.89 - well controlled on current inhalers. 7. MURIEL (generalized anxiety disorder) - ICD9: 300.02, ICD10: F41.1 - stable on Prozac and buspar. - COMPLETE BLOOD COUNT AND DIFFERENTIAL 8. Situational depression - ICD9: 309.0, ICD10: F43.21 - as per #7 9. Primary insomnia - ICD9: 307.42, ICD10: F51.01 - stale 10. Smoker - ICD9: 305.1, ICD10: F17.200 - Cessation encouraged. - Counseling was given focusing on the harmful effects of this addiction especially given the patient's medical condition(s) which will be worsened because of the chemicals in tobacco. 11. Vitamin B12 deficiency - ICD9: 266.2, ICD10: E53.8 Check - VITAMIN B12 - COMPLETE BLOOD COUNT AND DIFFERENTIAL 12. Vitamin D deficiency - ICD9: 268.9, ICD10: E55.9 Check - VITAMIN D 25 HYDROXY 13. Medication management - ICD9: V58.69, ICD10: Z79.899 Check - VITAMIN D 25 HYDROXY - COMPLETE BLOOD COUNT AND DIFFERENTIAL 14. Encounter for screening for diabetes mellitus - ICD9: V77.1, ICD10: Z13.1 - check A1c 15. Screening for colon cancer - ICD9: V76.51, ICD10: Z12.11 Check - COLOGUARD 16. Elevated blood pressure reading without diagnosis of hypertension - ICD9: 796.2, ICD10: R03.0 - Encouraged dietary sodium restriction/DASH diet - Recommended regular aerobic exercise. - Recommend home blood pressure monitoring, to bring results in on next visit - recheck in 3 weeks - Goal of BP <130/80 F/u 6 months routine. Fortino Logan MD documented in this encounter [facility] 07-21-2024 Telephone encounter Note Pt notified of results. Pt verbalizes understanding. Francisco Carver LPN [facility] 07-21-2024 Miscellaneous Notes Pt notified of results. Pt verbalizes understanding. Francisco Carver LPN T patient know her gal bladder function is normal. Scan on 07/20/2024 12:02 PM by Provider, External, PAJudie: Ultrasound Please review and advise. Jd Toscano MA documented in this encounter [facility] 07-21-2024 Telephone encounter Note T patient know her gal bladder function is normal. [facility] 07-21-2024 Telephone encounter Note Scan on 07/20/2024 12:02 PM by Provider, ROSA ELENA Best: Ultrasound Please review and advise. Jd Toscano MA [facility] 07-16-2024 Telephone encounter Note The following approved medication requests have been transmitted electronically. Requested Prescriptions Signed Prescriptions Disp Refills fluticasone (FLONASE) 50 mcg/actuation nasal spray 1 Each 11 Sig: Use 2 Sprays in each nostril once daily. Rinse mouth after use. Authorizing Provider: FORTINO LOGAN MD [facility] 07-16-2024 Miscellaneous Notes The following approved medication requests have been transmitted electronically. Requested Prescriptions Signed Prescriptions Disp Refills fluticasone (FLONASE) 50 mcg/actuation nasal spray 1 Each 11 Sig: Use 2 Sprays in each nostril once daily. Rinse mouth after use. Authorizing Provider: FORTINO LOGAN MD Patient calling said her nose is still burning even after the antibiotics. Patient is asking for a refill on the generic Flonase nasal spray to see if that may help. Pending rx Please advise The patient has been identified by name and date of : Yes Caregiver verified no other encounters exist for this prescription request: Yes Caregiver confirmed with patient/requestor that no other refills are due, in the near future, with this provider at this time: Yes The last office visit in the department: 07/06/2024 Does the patient have a future office visit with this provider/department: Yes 07/27/2024 Requested Prescriptions Pending Prescriptions Disp Refills fluticasone (FLONASE) 50 mcg/actuation nasal spray 1 Each 11 Sig: Use 2 Sprays in each nostril once daily. Rinse mouth after use. Carrie Valle LPN July 16, 2024 3:10 PM documented in this encounter [facility] 07-16-2024 Telephone encounter Note Patient calling said her nose is still burning even after the antibiotics. Patient is asking for a refill on the generic Flonase nasal spray to see if that may help. Pending rx Please advise The patient has been identified by name and date of : Yes Caregiver verified no other encounters exist for this prescription request: Yes Caregiver confirmed with patient/requestor that no other refills are due, in the near future, with this provider at this time: Yes The last office visit in the department: 07/06/2024 Does the patient have a future office visit with this provider/department: Yes 07/27/2024 Requested Prescriptions Pending Prescriptions Disp Refills fluticasone (FLONASE) 50 mcg/actuation nasal spray 1 Each 11 Sig: Use 2 Sprays in each nostril once daily. Rinse mouth after use. Carrie Valle LPN July 16, 2024 3:10 PM [facility] 07-08-2024 Telephone encounter Note Spoke with patient. Given message from provider's office. Patient verbalizes understanding. Maria Isabel Stewart RN [facility] 07-08-2024 Miscellaneous Notes Spoke with patient. Given message from provider's office. Patient verbalizes understanding. Maria Isabel Stewart RN Left message for pt to contact office. Francisco Carver LPN Let patient know her COVID, flu and RSV tests were all neg. documented in this encounter [facility] 07-08-2024 Telephone encounter Note Left message for pt to contact office. Francisco Carver LPN [facility] 07-07-2024 Telephone encounter Note Let patient know her COVID, flu and RSV tests were all neg. [facility] 07-06-2024 History of Present illness Narrative Chief Complaint Patient presents with: Sinus Infection HPI Brenda Villalobos is a 54 year old female who presents here today for sinus pressure; headache; body aches off/on x 1 week. No fever; N/V. No increased coughing. Patient has pressure in the maxillary, ethmoid and frontal sinus areas. No dental pain. Occasional ear pain. Has occasional rhinorrhea. Has post nasal drainage with some throat irritation. No productive cough. Occasional increased shortness of breath. Otherwise at her base line. Rest as above. Patient with COPD, dyslipidemia, hypothyroidism, insomnia, elevated fasting blood sugar, smoker, GERD, MURIEL, Depression, Vit D def and Vit B12 def as well as those reviewed and addressed below and in ROS. Past medical history, appointments, medications, allergies reviewed. 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 Has been on omeprazole, pantoprazole and prevacid with no relief of symptoms. Nexium has been helpful and dexalant Insomnia 04/12/2014 OA (osteoarthrosis) 05/18/2021 Post-menopausal Situational depression 04/19/2020 Smoker 08/12/2013 Started at the age of 11 up to 1.5 PPD Spastic bladder 10/23/2018 Varicose veins of bilateral lower extremities with other complications 04/19/2020 bleeding at times Vitamin B12 deficiency 10/25/2020 Vitamin D deficiency Well adult exam 04/17/2016 last done: 04/19/20 Previous Surgical History PAST SURGICAL HISTORY Procedure Laterality Date 48 HOUR PH STUDY 09/13/2021 Demeester score-28.6; Dr. Gresham EGD TRANSORAL BIOPSY SINGLE/MULTIPLE 05/27/2016 EGD WITH BIOPSY(S) 09/13/2021 Dr. Gresham ESOPHAGOGASTRODUODENOSCOPY TRANSORAL DIAGNOSTIC 03/16/2020 OFFICE LEEP 2001 TOTAL ABDOMINAL HYSTERECT W/WO RMVL TUBE OVARY Bilateral 2002 bso Family History FAMILY HISTORY Problem Relation Age of Onset COPD Mother Heart Mother Thyroid Mother Hypertension Mother Kidney Disease Mother Kidney failure Asthma Mother Breast Cancer Mother Seizures Brother Coronary Artery Disease Maternal Grandmother Thyroid Daughter Diabetes Son Type 1 Hypertension Son Asthma Son Alzheimer's Disease Paternal Uncle Prostate Cancer Paternal Uncle Ovarian cancer No Family History Colon Cancer No Family History Hyperlipidemia No Family History Stroke No Family History Patient Allergies ALLERGIES Allergen Reactions Medrol Dose Pack [M* Swelling Swelling of throat Bactrim [Sulfametho* Itching Carafate [Sucralfat* Other: See Comments Made her constipated Morphine Itching Trimethoprim Other: See Comments, Unknown Zoloft [Sertraline] Other: See Comments Chest felt heavy. Current Medications Current Outpatient Medications on File Prior to Visit Medication Sig SENOKOT 8.6 mg tab Take 1 tablet by mouth two times a day. busPIRone (BUSPAR) 15 mg tablet Take 1.5 tabs twice a day. FLUoxetine (PROZAC) 40 mg capsule Take 1 capsule by mouth once daily. levothyroxine (SYNTHROID) 88 mcg tablet Take one tab by mouth daily.Friday -Friday and none on Friday. esomeprazole (NEXIUM) 40 mg capsule Take 1 capsule by mouth two times a day before meals. tiotropium (SPIRIVA) 18 mcg inhalation capsule Inhale 1 capsule as instructed once daily. albuterol (PROVENTIL) 2.5 mg /3 mL (0.083 %) nebulizer solution Use 3 mL via nebulizer every 6 hours as needed for wheezing/shortness of breath. Use over 5-15minutes. albuterol HFA (PROAIR HFA) 90 mcg/actuation inhaler USE 2 INHALATIONS EVERY 6 HOURS INSTRUCTED NEEDED fluticasone-salmeterol (ADVAIR DISKUS) 250-50 mcg/dose inhaler Inhale 1 Puff as instructed two times a day. Rinse and gargle mouth after use with water. ipratropium-albuterol (DUONEB) 0.5 mg-3 mg(2.5 mg base)/3 mL nebu Inhale 3 mL as instructed two times a day. fluticasone (FLONASE) 50 mcg/actuation nasal spray Use 2 Sprays in each nostril once daily. Rinse mouth after use. (Patient taking differently: Use 2 Sprays in each nostril once daily. Rinse mouth after use. PRN) Cholecalciferol, Vitamin D3, 50 mcg (2,000 unit) cap Take 1 capsule by mouth once daily. cyanocobalamin (VITAMIN B-12) 1,000 mcg tab Take 1 tablet by mouth once daily. ergocalciferol, vitamin D2, (VITAMIN D2 ORAL) Take by mouth. No current facility-administered medications on file prior to visit. Social History Social History Tobacco Use Smoking status: Every Day Current packs/day: 0.50 Average packs/day: 0.5 packs/day for 43.2 years (21.6 ttl pk-yrs) Types: Cigarettes Start date: 1981 Smokeless tobacco: Never Tobacco comments: Both parents smoked in childhood home. 1st AM cigarette within 5 minutes of waking up. 01/30/16. TO Vaping Use Vaping status: Never Used Substance Use Topics Alcohol use: No Drug use: No Review of Symptoms REVIEW OF SYSTEMS See HPI EXAM: BP 138/98 (BP Site: Left Arm, BP Position: Sitting, BP Cuff Size: Regular Adult) Pulse 81 Temp 37.4 C (99.3 F) Resp 18 Wt 56.2 kg (124 lb) SpO2 98% BMI 22.32 kg/m General Appearance: Well appearing, alert, in no acute distress, well-hydrated, well nourished.. Eyes: Anicteric sclera. Pupils are equally round. Extraocular movements are intact. . Ears: External ears, TM's normal, canals clear. Nose/Sinuses: Nares normal, septum midline, mucosa normal, no drainage. Has maxillary sinus tenderness. Oropharynx: Lips, mucosa, and tongue normal, teeth and gums normal. Oropharynx shows yellow post nasal drainage. No erythema. Neck: Supple, no adenopathy; thyroid symmetric, normal size, no bruits. Lungs: has her stable end inspiratory wheezing in the basses. No rhonchi, rales.. Heart: RRR without murmur, gallop, or rubs. No ectopy. Abdomen: Normal abdominal exam, Abdomen soft, non-tender. Bowel sounds normal. No masses, organomegaly. Health Maintenance List Colorectal Cancer Screening Never done Lung Cancer Screening Never done Mammogram Screening due on 05/13/2020 Covid-19 Vaccine( season) Never done Annual PCP Team Chronic Disease Visit due on 05/31/2025 Diabetes Screening due on 12/03/2026 DTaP,Tdap,Td Vaccine(2 - Td or Tdap) due on 04/22/2028 Lipid Screening due on 12/03/2028 Spirometry Completed Hepatitis B Vaccine Discontinued Alpha-1 Antitrypsin Deficiency Screening Discontinued Cervical Cancer Screening Discontinued Influenza Vaccine Discontinued Hepatitis C Screening Discontinued HIV Screening Discontinued Shingrix Vaccine Discontinued Pneumococcal Vaccine Discontinued Data reviewed A/P ASSESSMENT/PLAN: 1. Bacterial sinusitis - ICD9: 473.9, 041.9, ICD10: J32.9, B96.89 (primary diagnosis) - Will begin treatment with as per antibiotic as written, see orders - Supportive care with plenty of fluids, rest, and analgesia prn. 2. Suspected COVID-19 virus infection - ICD9: V01.79, ICD10: Z20.822 Check - COVID & INFLUENZA A/B & RSV PCR, ROUTINE Requested Prescriptions Signed Prescriptions Disp Refills cefADROxil (DURICEF) 500 mg capsule 20 capsule 0 Sig: Take 1 capsule by mouth two times a day. F/u next 2-4 weeks for physical Fortino Logan MD documented in this encounter [facility] 06-21-2024 Telephone encounter Note Faxed. Jd Toscano MA [facility] 06-21-2024 Miscellaneous Notes Faxed. dJ Toscano MA Order ready to be faxed. Patient notified and voiced understanding. Jd Toscano MA Images from the original note were not included. Let patient know US of RUQ was normal. Want to proceed with HIDA scan. Will need order sheet for [facility] to fill out. Dx: R10.13 Order given to PCP to sign. Faxed demo/order. Referral placed. Jd Toscano MA documented in this encounter [facility] 06-21-2024 Telephone encounter Note Order ready to be faxed. [facility] 06-21-2024 Telephone encounter Note Patient notified and voiced understanding. Jd Toscano MA [facility] 06-21-2024 Telephone encounter Note Images from the original note were not included. Let patient know US of RUQ was normal. Want to proceed with HIDA scan. Will need order sheet for [facility] to fill out. Dx: R10.13 Order given to PCP to sign. Faxed demo/order. Referral placed. Jd Toscano MA [facility] 06-18-2024 History of Present illness Narrative Scan on 06/08/2024 9:29 AM by Provider, External, PA-C: Ultrasound Jd Toscano MA documented in this encounter [facility] 06-08-2024 Telephone encounter Note Patient notified of results. Patient verbalizes understanding. Ayana Bland RN [facility] 06-08-2024 Miscellaneous Notes Patient notified of results. Patient verbalizes understanding. Ayana Bland RN Left message for patient to return call to office Sj Pedro MA Please let patient know her labs are normal. Scan on 06/07/2024 10:07 AM by Provider, External, PA-C: Chemistry Please review labs and advise. Jd Toscano MA documented in this encounter [facility] 06-08-2024 Telephone encounter Note Left message for patient to return call to office Sj Pedro MA [facility] 06-08-2024 Telephone encounter Note Please let patient know her labs are normal. [facility] Work Phone: 06-08-2024 Telephone encounter Note Scan on 06/07/2024 10:07 AM by Provider, ROSA ELENA Best: Chemistry Please review labs and advise. Jd Toscano MA [facility] 05-31-2024 History of Present illness Narrative Chief Complaint Patient presents with: Follow Up HPI Brenda Villalobos is a 54 year old female who presents here today for 6 week follow up on GERD/Anxiety. Last visit patient was in for Anxiety and GERD we had patient continue the prozac and added Buspar 15 mg 1/2 tab BID for 2 weeks then one BID for her anxiety. Patient was also told to continue the Nexium at 40 mg twice a day 30 min before meals and add Carafate one BID at lunch and bedtime. How is patient feeling today? Patient indicated that she was feeling better for 2 weeks after starting the additional medications. Then after that the medication stopped working. Her epigastric pain has increased recently and not made worse with eating. Has lose stools at times. The generic senokot seemed to stopped working after two weeks. The anxiety was doing much better initially and then in two weeks was not working as well. No new social issues at the same time. Patient did get a new position at work that she will be starting this week. 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 No recent fevers or night sweats. Office visit - 04/14/2024 - Anxiety. Patient has had anxiety for most of her life and she has always just dealt with it. As a young child should would vomit from the anxiety going on around her. Work and dealing with her youngest child who has had a Hx of drug use has her anxiety increased. With the prozac she is not having any depression issues. Patient has noticed that anxiety has become more of an issue along with not being able to concentrate and stay focused. She is trying to get another position at work but feels she needs to get the anxiety and focus under control. Patient has also mentioned that her GERD has been just terrible. She is taking the GERD medication twice daily with little or no relief. She indicated that she has been to other doctors for this but no one really has a good answer. Was told she could have surgery but no guarantee it will work. She has lost some weight because she cannot eat much food without the GERD really flaring up. Patient with COPD, dyslipidemia, hypothyroidism, insomnia, elevated fasting blood sugar, smoker, GERD, MURIEL, Depression, Vit D def and Vit B12 def as well as those reviewed and addressed below and in ROS. Past medical history, appointments, medications, allergies reviewed. Previous Medical History PAST MEDICAL HISTORY 04/25/2015: Acquired hypothyroidism Comment: US 10/2017 showed enlarged right lobe but no nodules 09/03/2013: Allergic rhinitis No date: ALEXYS III (cervical intraepithelial neoplasia grade III) with severe dysplasia 08/23/2015: Constipation No date: COPD with asthma (HCC) 04/22/2018: Dyslipidemia 04/18/2017: Elevated fasting blood sugar No date: Endometriosis, site unspecified Comment: Endometriosis 05/18/2021: MURIEL (generalized anxiety disorder) 10/18/2016: Gastric hyperplasia 10/18/2016: Gastro-esophageal reflux disease with esophagitis Comment: Patient with EGD proven esophagitis and gastric hyperplasia. Has been on omeprazole, pantoprazole and prevacid with no relief of symptoms. Nexium has been helpful and dexalant 04/12/2014: Insomnia 05/18/2021: OA (osteoarthrosis) No date: Post-menopausal 04/19/2020: Situational depression 08/12/2013: Smoker Comment: Started at the age of 11 up to 1.5 PPD 10/23/2018: Spastic bladder 04/19/2020: Varicose veins of bilateral lower extremities with other complications Comment: bleeding at times 10/25/2020: Vitamin B12 deficiency No date: Vitamin D deficiency 04/17/2016: Well adult exam Comment: last done: 04/19/20 Previous Surgical History PAST SURGICAL HISTORY 09/13/2021: 48 HOUR PH STUDY Comment: Demeester score-28.6; Dr. Gresham 05/27/2016: EGD TRANSORAL BIOPSY SINGLE/MULTIPLE 09/13/2021: EGD WITH BIOPSY(S) Comment: Dr. Gresham 03/16/2020: ESOPHAGOGASTRODUODENOSCOPY TRANSORAL DIAGNOSTIC 2002: OFFICE LEEP 2003: TOTAL ABDOMINAL HYSTERECT W/WO RMVL TUBE OVARY; Bilateral Comment: bso Family History FAMILY HISTORY Problem Relation Age of Onset COPD Mother Heart Mother Thyroid Mother Hypertension Mother Kidney Disease Mother Kidney failure Asthma Mother Breast Cancer Mother Seizures Brother Coronary Artery Disease Maternal Grandmother Thyroid Daughter Diabetes Son Type 1 Hypertension Son Asthma Son Alzheimer's Disease Paternal Uncle Prostate Cancer Paternal Uncle Ovarian cancer No Family History Colon Cancer No Family History Hyperlipidemia No Family History Stroke No Family History Patient Allergies ALLERGIES Allergen Reactions Medrol Dose Pack [M* Swelling Swelling of throat Bactrim [Sulfametho* Itching Morphine Itching Trimethoprim Other: See Comments, Unknown Zoloft [Sertraline] Other: See Comments Chest felt heavy. Current Medications Current Outpatient Medications on File Prior to Visit Medication Sig FLUoxetine (PROZAC) 20 mg capsule Take 1 capsule by mouth once daily. levothyroxine (SYNTHROID) 88 mcg tablet Take one tab by mouth daily.Friday -Friday and none on Friday. sucralfate (CARAFATE) 1 gram tablet Take one tab twice a day at lunch and before bed. busPIRone (BUSPAR) 15 mg tablet Take 1/2 a tab by mouth twice a day for 2 weeks than one twice a day. senna (SENOKOT) 8.6 mg tab Take 1 tablet by mouth two times a day. esomeprazole (NEXIUM) 40 mg capsule Take 1 capsule by mouth two times a day before meals. tiotropium (SPIRIVA) 18 mcg inhalation capsule Inhale 1 capsule as instructed once daily. albuterol (PROVENTIL) 2.5 mg /3 mL (0.083 %) nebulizer solution Use 3 mL via nebulizer every 6 hours as needed for wheezing/shortness of breath. Use over 5-15minutes. albuterol HFA (PROAIR HFA) 90 mcg/actuation inhaler USE 2 INHALATIONS EVERY 6 HOURS INSTRUCTED NEEDED fluticasone-salmeterol (ADVAIR DISKUS) 250-50 mcg/dose inhaler Inhale 1 Puff as instructed two times a day. Rinse and gargle mouth after use with water. ipratropium-albuterol (DUONEB) 0.5 mg-3 mg(2.5 mg base)/3 mL nebu Inhale 3 mL as instructed two times a day. oxaprozin (DAYPRO) 600 mg tablet Take 2 tablets by mouth once daily. (Patient not taking: Reported on 04/14/2024) tolterodine ER (DETROL LA) 4 mg 24 hr capsule Take 1 capsule by mouth once daily. (Patient not taking: Reported on 06/04/2023) ondansetron orally disintegrating (ZOFRAN ODT) 4 mg disintegrating tablet Take 1 tablet by mouth every 6 hours as needed for nausea/vomiting. (Patient not taking: Reported on 04/14/2024) hydrOXYzine HCl (ATARAX) 25 mg tablet Take 1-2 tabs by mouth prior to bed as needed for sleep. (Patient not taking: Reported on 04/14/2024) fluticasone (FLONASE) 50 mcg/actuation nasal spray Use 2 Sprays in each nostril once daily. Rinse mouth after use. (Patient taking differently: Use 2 Sprays in each nostril once daily. Rinse mouth after use. PRN) Cholecalciferol, Vitamin D3, 50 mcg (2,000 unit) cap Take 1 capsule by mouth once daily. cyanocobalamin (VITAMIN B-12) 1,000 mcg tab Take 1 tablet by mouth once daily. ergocalciferol, vitamin D2, (VITAMIN D2 ORAL) Take by mouth. No current facility-administered medications on file prior to visit. Social History Social History Tobacco Use Smoking status: Every Day Current packs/day: 0.50 Average packs/day: 0.5 packs/day for 43.1 years (21.5 ttl pk-yrs) Types: Cigarettes Start date: 1981 Smokeless tobacco: Never Tobacco comments: Both parents smoked in childhood home. 1st AM cigarette within 5 minutes of waking up. 01/30/16. TO Vaping Use Vaping status: Never Used Substance Use Topics Alcohol use: No Drug use: No Review of Symptoms REVIEW OF SYSTEMS See HPI EXAM: BP 142/92 (BP Site: Left Arm, BP Position: Sitting, BP Cuff Size: Regular Adult) Pulse 84 Resp 18 Wt 53.5 kg (118 lb) BMI 21.24 kg/m Last 5 Encounter Wt Readings: Date: Wt: 05/31/2024 53.5 kg (118 lb) 04/14/2024 52.2 kg (115 lb) 12/05/2023 54 kg (119 lb) 08/06/2023 57.6 kg (127 lb) 06/04/2023 59.4 kg (131 lb) General Appearance: Well appearing, alert, in no acute distress, well-hydrated, well nourished.. Lungs: Lungs clear to auscultation. No wheezing, rhonchi, rales.. Heart: RRR without murmur, gallop, or rubs. No ectopy. Abdomen: Abdomen soft, non-distended. Has significant tenderness in the upper abdomen with it being worse in the epigastric area. . Bowel sounds normal. No masses, organomegaly. No perotoneal signs. Health Maintenance List Colorectal Cancer Screening Never done Lung Cancer Screening Never done Mammogram Screening due on 05/13/2020 Covid-19 Vaccine( season) Never done Annual PCP Team Chronic Disease Visit due on 04/14/2025 Diabetes Screening due on 12/03/2026 DTaP,Tdap,Td Vaccine(2 - Td or Tdap) due on 04/22/2028 Lipid Screening due on 12/03/2028 Spirometry Completed Hepatitis B Vaccine Discontinued Alpha-1 Antitrypsin Deficiency Screening Discontinued Cervical Cancer Screening Discontinued Influenza Vaccine Discontinued Hepatitis C Screening Discontinued HIV Screening Discontinued Shingrix Vaccine Discontinued Pneumococcal Vaccine Discontinued Data reviewed A/P ASSESSMENT/PLAN: 1. MURIEL (generalized anxiety disorder) - ICD9: 300.02, ICD10: F41.1 (primary diagnosis) - will increase the buspar to 15 mg 1.5 tabs BID. - as per #2 2. Situational depression - ICD9: 309.0, ICD10: F43.21 - will increased the Prozac to 40 mg a day - as per #1 3. Acquired hypothyroidism - ICD9: 244.9, ICD10: E03.9 - Instructed patient on importance of taking on an empty stomach either first thing in the morning or at bedtime. - continue current dose of Synthroid Check - THYROID STIMULATING HORMONE 4. Epigastric pain - ICD9: 789.06, ICD10: R10.13 Check - COMPREHENSIVE METABOLIC PANEL - AMYLASE - LIPASE - H. Pylori Ab - check US and if negative will get a HIDA scan. F/u 4 weeks I spent a total of 30 minutes on the date of the service which included preparing to see the patient, [id number] patient care, completing clinical documentation, performing a medically appropriate examination, counseling and educating the patient/family/caregiver and ordering medications, tests, or procedures. Fortino Logan MD documented in this encounter [facility] 04-14-2024 Instructions Fortino Logan MD - 04/14/2024 4:49 PM EDT Take your Nexium 30 min before breakfast and dinner. Take the Carafate with lunch and before bed. documented in this encounter [facility] 04-14-2024 History of Present illness Narrative Chief Complaint Patient presents with: Anxiety HPI Brenda Villalobos is a 53 year old female who presents here today for anxiety/difficulty focusing. Patient has had anxiety for most of her life and she has always just dealt with it. As a young child should would vomit from the anxiety going on around her. Work and dealing with her youngest child who has had a Hx of drug use has her anxiety increased. With the prozac she is not having any depression issues. Patient has noticed that anxiety has become more of an issue along with not being able to concentrate and stay focused. She is trying to get another position at work but feels she needs to get the anxiety and focus under control. Patient has also mentioned that her GERD has been just terrible. She is taking the GERD medication twice daily with little or no relief. She indicated that she has been to other doctors for this but no one really has a good answer. Was told she could have surgery but no guarantee it will work. She has lost some weight because she cannot eat much food without the GERD really flaring up. Patient with COPD, dyslipidemia, hypothyroidism, insomnia, elevated fasting blood sugar, smoker, GERD, MURIEL, Depression, Vit D def and Vit B12 def as well as those reviewed and addressed below and in ROS. Past medical history, appointments, medications, allergies reviewed. 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 Has been on omeprazole, pantoprazole and prevacid with no relief of symptoms. Nexium has been helpful and dexalant Insomnia 04/12/2014 OA (osteoarthrosis) 05/18/2021 Post-menopausal Situational depression 04/19/2020 Smoker 08/12/2013 Started at the age of 11 up to 1.5 PPD Spastic bladder 10/23/2018 Varicose veins of bilateral lower extremities with other complications 04/19/2020 bleeding at times Vitamin B12 deficiency 10/25/2020 Vitamin D deficiency Well adult exam 04/17/2016 last done: 04/19/20 Previous Surgical History PAST SURGICAL HISTORY Procedure Laterality Date 48 HOUR PH STUDY 09/13/2021 Demeester score-28.6; Dr. Gresham EGD TRANSORAL BIOPSY SINGLE/MULTIPLE 05/27/2016 EGD WITH BIOPSY(S) 09/13/2021 Dr. Gresham ESOPHAGOGASTRODUODENOSCOPY TRANSORAL DIAGNOSTIC 03/16/2020 OFFICE LEEP 2002 TOTAL ABDOMINAL HYSTERECT W/WO RMVL TUBE OVARY Bilateral 2002 bso Family History FAMILY HISTORY Problem Relation Age of Onset COPD Mother Heart Mother Thyroid Mother Hypertension Mother Kidney Disease Mother Kidney failure Asthma Mother Breast Cancer Mother Seizures Brother Coronary Artery Disease Maternal Grandmother Thyroid Daughter Diabetes Son Type 1 Hypertension Son Asthma Son Alzheimer's Disease Paternal Uncle Prostate Cancer Paternal Uncle Ovarian cancer No Family History Colon Cancer No Family History Hyperlipidemia No Family History Stroke No Family History Patient Allergies ALLERGIES Allergen Reactions Medrol Dose Pack [M* Swelling Swelling of throat Bactrim [Sulfametho* Itching Morphine Itching Trimethoprim Other: See Comments, Unknown Zoloft [Sertraline] Other: See Comments Chest felt heavy. Current Medications Current Outpatient Medications on File Prior to Visit Medication Sig senna (SENOKOT) 8.6 mg tab Take 1 tablet by mouth two times a day. esomeprazole (NEXIUM) 40 mg capsule Take 1 capsule by mouth two times a day before meals. tiotropium (SPIRIVA) 18 mcg inhalation capsule Inhale 1 capsule as instructed once daily. FLUoxetine (PROZAC) 20 mg capsule Take 1 capsule by mouth once daily. albuterol (PROVENTIL) 2.5 mg /3 mL (0.083 %) nebulizer solution Use 3 mL via nebulizer every 6 hours as needed for wheezing/shortness of breath. Use over 5-15minutes. albuterol HFA (PROAIR HFA) 90 mcg/actuation inhaler USE 2 INHALATIONS EVERY 6 HOURS INSTRUCTED NEEDED levothyroxine (SYNTHROID) 88 mcg tablet Take one tab by mouth daily.Friday -Friday and none on Friday. fluticasone-salmeterol (ADVAIR DISKUS) 250-50 mcg/dose inhaler Inhale 1 Puff as instructed two times a day. Rinse and gargle mouth after use with water. ipratropium-albuterol (DUONEB) 0.5 mg-3 mg(2.5 mg base)/3 mL nebu Inhale 3 mL as instructed two times a day. oxaprozin (DAYPRO) 600 mg tablet Take 2 tablets by mouth once daily. tolterodine ER (DETROL LA) 4 mg 24 hr capsule Take 1 capsule by mouth once daily. (Patient not taking: Reported on 06/04/2023) ondansetron orally disintegrating (ZOFRAN ODT) 4 mg disintegrating tablet Take 1 tablet by mouth every 6 hours as needed for nausea/vomiting. hydrOXYzine HCl (ATARAX) 25 mg tablet Take 1-2 tabs by mouth prior to bed as needed for sleep. fluticasone (FLONASE) 50 mcg/actuation nasal spray Use 2 Sprays in each nostril once daily. Rinse mouth after use. Cholecalciferol, Vitamin D3, 50 mcg (2,000 unit) cap Take 1 capsule by mouth once daily. cyanocobalamin (VITAMIN B-12) 1,000 mcg tab Take 1 tablet by mouth once daily. ergocalciferol, vitamin D2, (VITAMIN D2 ORAL) Take by mouth. No current facility-administered medications on file prior to visit. Social History Social History Tobacco Use Smoking status: Every Day Packs/day: 0.50 Years: 40.00 Additional pack years: 0.00 Total pack years: 20.00 Types: Cigarettes Start date: 1981 Smokeless tobacco: Never Tobacco comments: Both parents smoked in childhood home. 1st AM cigarette within 5 minutes of waking up. 01/30/16. TO Vaping Use Vaping Use: Never used Substance Use Topics Alcohol use: No Drug use: No Review of Symptoms REVIEW OF SYSTEMS See HPI EXAM: BP 134/82 (BP Site: Left Arm, BP Position: Sitting, BP Cuff Size: Regular Adult) Pulse 84 Resp 18 Wt 52.2 kg (115 lb) BMI 20.70 kg/m General Appearance: Well appearing, alert, in no acute distress, well-hydrated, well nourished.. Lungs:has wheezing. No rhonchi, rales.. Heart: RRR without murmur, gallop, or rubs. No ectopy. Abdomen: Abdomen soft, non-distended. Bowel sounds normal. No masses, organomegaly. Has epigastric tenderness. . Health Maintenance List Colorectal Cancer Screening Never done Lung Cancer Screening Never done Mammogram Screening due on 05/13/2020 Covid-19 Vaccine() Never done Annual PCP Team Chronic Disease Visit due on 12/05/2024 Diabetes Screening due on 12/03/2026 DTaP,Tdap,Td Vaccine(2 - Td or Tdap) due on 04/22/2028 Lipid Screening due on 12/03/2028 Spirometry Completed Hepatitis B Vaccine Discontinued Alpha-1 Antitrypsin Deficiency Screening Discontinued Cervical Cancer Screening Discontinued Influenza Vaccine Discontinued Hepatitis C Screening Discontinued HIV Screening Discontinued Shingrix Vaccine Discontinued Pneumococcal Vaccine Discontinued Data reviewed Navi's Anxiety score: 59 (mild/mod) A/P ASSESSMENT/PLAN: 1. MURIEL (generalized anxiety disorder) - ICD9: 300.02, ICD10: F41.1 (primary diagnosis) - will cont the prozac at 20 mg and add on BUspar 15 mg 1/2 a tab BID for two weeks then one BID. 2. Acquired hypothyroidism - ICD9: 244.9, ICD10: E03.9 - Instructed patient on importance of taking on an empty stomach either first thing in the morning or at bedtime. - continue current dose of Synthroid - LEVOTHYROXINE 88 MCG TABLET 3. Gastric hyperplasia - ICD9: 535.20, ICD10: K29.60 - patient to cont the Nexium at 40 mg twice a day 30 min before breakfast and dinner, and add Carafate one twice a day at lunch and before bed., 4. Gastroesophageal reflux disease with esophagitis without hemorrhage - ICD9: 530.81, 530.10, ICD10: K21.00 - as per #3 F/u 6 weeks recheck I spent a total of 30 minutes on the date of the service which included preparing to see the patient, [id number] patient care, completing clinical documentation, performing a medically appropriate examination, counseling and educating the patient/family/caregiver and ordering medications, tests, or procedures. Fortino Logan MD documented in this encounter [facility] 04-05-2024 Telephone encounter Note The following approved medication requests have been transmitted electronically. Requested Prescriptions Signed Prescriptions Disp Refills senna (SENOKOT) 8.6 mg tab 180 tablet 1 Sig: Take 1 tablet by mouth two times a day. Authorizing Provider: FORTINO LOGAN MD [facility] 04-05-2024 Miscellaneous Notes The following approved medication requests have been transmitted electronically. Requested Prescriptions Signed Prescriptions Disp Refills senna (SENOKOT) 8.6 mg tab 180 tablet 1 Sig: Take 1 tablet by mouth two times a day. Authorizing Provider: FORTINO LOGAN MD [facility]-12/05/23 Labs-12/03/23Aug-04/14/24 Prisca Alegria LPN documented in this encounter [facility] 04-05-2024 Telephone encounter Note [facility]-12/05/23 Labs-12/03/23Aug-04/14/24 Prisca Alegria LPN [facility] 12-09-2023 Miscellaneous Notes Pt notified. She verbalized understanding. Dorian García LPN Please let patietn know her platelets are elevated but still within her normal range. Her other labs are normal. documented in this encounter [facility] 12-09-2023 Miscellaneous Notes Pt calls to request lab orders be faxed to [facility] @ [phone]. Orders faxed as requested. Nancy Lal LPN documented in this encounter [facility] 12-05-2023 History of Present illness Narrative Chief Complaint Patient presents with: 6 Month Exam HPI Brenda Villalobos is a 53 year old female who presents here today for Above Complaints.. Patient presents for routine follow up. Patient reports she is fatigued but is otherwise ok. Patient reports she had the stomach flu about 6 weeks ago and diarrhea continued for weeks but has since resolved. Past medical history, appointments, medications, allergies reviewed. Previous Medical History PAST MEDICAL HISTORY Diagnosis Date Acquired hypothyroidism 04/25/2015 US 10/2017 showed enlarged right lobe but no nodules Allergic rhinitis 09/03/2013 ALEXYS III (cervical intraepithelial neoplasia grade III) with severe dysplasia Constipation 08/23/2015 COPD with asthma Dyslipidemia 04/22/2018 Elevated fasting blood sugar 04/18/2017 Endometriosis, site unspecified Endometriosis MURIEL (generalized anxiety disorder) 05/18/2021 Gastric hyperplasia 10/18/2016 Gastro-esophageal reflux disease with esophagitis 10/18/2016 Patient with EGD proven esophagitis and gastric hyperplasia. Has been on omeprazole, pantoprazole and prevacid with no relief of symptoms. Nexium has been helpful and dexalant Insomnia 04/12/2014 OA (osteoarthrosis) 05/18/2021 Post-menopausal Situational depression 04/19/2020 Smoker 08/12/2013 Started at the age of 11 up to 1.5 PPD Spastic bladder 10/23/2018 Varicose veins of bilateral lower extremities with other complications 04/19/2020 bleeding at times Vitamin B12 deficiency 10/25/2020 Vitamin D deficiency Well adult exam 04/17/2016 last done: 04/19/20 Previous Surgical History PAST SURGICAL HISTORY Procedure Laterality Date 48 HOUR PH STUDY 09/13/2021 Demeester score-28.6; Dr. Gresham EGD TRANSORAL BIOPSY SINGLE/MULTIPLE 05/27/2016 EGD WITH BIOPSY(S) 09/13/2021 Dr. Gresham ESOPHAGOGASTRODUODENOSCOPY TRANSORAL DIAGNOSTIC 03/16/2020 OFFICE LEEP 2001 TOTAL ABDOMINAL HYSTERECT W/WO RMVL TUBE OVARY Bilateral 2002 bso Family History FAMILY HISTORY Problem Relation Age of Onset COPD Mother Heart Mother Thyroid Mother Hypertension Mother Kidney Disease Mother Kidney failure Asthma Mother Breast Cancer Mother Seizures Brother Coronary Artery Disease Maternal Grandmother Thyroid Daughter Diabetes Son Type 1 Hypertension Son Asthma Son Alzheimer's Disease Paternal Uncle Prostate Cancer Paternal Uncle Ovarian cancer No Family History Colon Cancer No Family History Hyperlipidemia No Family History Stroke No Family History Patient Allergies ALLERGIES Allergen Reactions Medrol Dose Pack [M* Swelling Swelling of throat Bactrim [Sulfametho* Itching Morphine Itching Trimethoprim Other: See Comments, Unknown Zoloft [Sertraline] Other: See Comments Chest felt heavy. Current Medications Current Outpatient Medications on File Prior to Visit Medication Sig SPIRIVA WITH HANDIHALER 18 mcg inhalation capsule Inhale 1 capsule as instructed once daily. Use with handihaler. FLUoxetine (PROZAC) 20 mg capsule Take 1 capsule by mouth once daily. albuterol (PROVENTIL) 2.5 mg /3 mL (0.083 %) nebulizer solution Use 3 mL via nebulizer every 6 hours as needed for wheezing/shortness of breath. Use over 5-15minutes. albuterol HFA (PROAIR HFA) 90 mcg/actuation inhaler USE 2 INHALATIONS EVERY 6 HOURS INSTRUCTED NEEDED levothyroxine (SYNTHROID) 88 mcg tablet Take one tab by mouth daily.Friday -Friday and none on Friday. fluticasone-salmeterol (ADVAIR DISKUS) 250-50 mcg/dose inhaler Inhale 1 Puff as instructed two times a day. Rinse and gargle mouth after use with water. esomeprazole (NEXIUM) 40 mg capsule Take 1 capsule by mouth two times a day before meals. ipratropium-albuterol (DUONEB) 0.5 mg-3 mg(2.5 mg base)/3 mL nebu Inhale 3 mL as instructed two times a day. oxaprozin (DAYPRO) 600 mg tablet Take 2 tablets by mouth once daily. senna (SENOKOT) 8.6 mg tab Take 1 tablet by mouth twice daily. tolterodine ER (DETROL LA) 4 mg 24 hr capsule Take 1 capsule by mouth once daily. (Patient not taking: Reported on 06/04/2023) ondansetron orally disintegrating (ZOFRAN ODT) 4 mg disintegrating tablet Take 1 tablet by mouth every 6 hours as needed for nausea/vomiting. hydrOXYzine HCl (ATARAX) 25 mg tablet Take 1-2 tabs by mouth prior to bed as needed for sleep. fluticasone (FLONASE) 50 mcg/actuation nasal spray Use 2 Sprays in each nostril once daily. Rinse mouth after use. Cholecalciferol, Vitamin D3, 50 mcg (2,000 unit) cap Take 1 capsule by mouth once daily. cyanocobalamin (VITAMIN B-12) 1,000 mcg tab Take 1 tablet by mouth once daily. ergocalciferol, vitamin D2, (VITAMIN D2 ORAL) Take by mouth. No current facility-administered medications on file prior to visit. Social History Social History Tobacco Use Smoking status: Every Day Packs/day: 0.50 Years: 40.00 Additional pack years: 0.00 Total pack years: 20.00 Types: Cigarettes Start date: 1981 Smokeless tobacco: Never Tobacco comments: Both parents smoked in childhood home. 1st AM cigarette within 5 minutes of waking up. 01/30/16. TO Vaping Use Vaping Use: Never used Substance Use Topics Alcohol use: No Drug use: No Review of Symptoms REVIEW OF SYSTEMS SEE HPI EXAM: BP 130/76 Pulse 76 Resp 14 Wt 54 kg (119 lb) BMI 21.42 kg/m General appearance: Well appearing, alert, in no acute distress, well-hydrated, well nourished. Lungs: Lungs clear to auscultation, occasional wheeze I bases. no rhonchi, rales. Heart: RRR without murmur, gallop, or rubs. No ectopy Abdomen: Normal abdominal exam, Abdomen soft, non-tender. Bowel sounds normal. No masses, organomegaly Peripheral pulses: Normal Health Maintenance List Colorectal Cancer Screening Never done Lung Cancer Screening Never done Mammogram Screening due on 05/13/2020 Covid-19 Vaccine(1) due on 06/04/2024 Annual PCP Team Chronic Disease Visit due on 08/06/2024 Diabetes Screening due on 12/03/2026 DTaP,Tdap,Td Vaccine(2 - Td or Tdap) due on 04/22/2028 Lipid Screening due on 12/03/2028 Spirometry Completed Hepatitis B Vaccine Discontinued Alpha-1 Antitrypsin Deficiency Screening Discontinued Pap Testing Discontinued HPV Testing Discontinued Influenza Vaccine Discontinued Hepatitis C Screening Discontinued HIV Screening Discontinued Shingrix Vaccine Discontinued Pneumococcal Vaccine Discontinued Data reviewed Component Latest Ref Rng & Units 12/03/2023 Cholesterol, Total 200 178 Triglyceride 150 101 HDL CHOLESTEROL 50 41 (A) LDL CHOLESTEROL 130 117 Vitamin B12 400 247 (A) VITAMIN D 31 - 80 ng/mL 33.8 Hemoglobin A1C 0 - 5.7 % 5.6 TSH 0.358 - 3.74 IU/ml 0.73 ASSESSMENT/PLAN: 1. MURIEL (generalized anxiety disorder) - ICD9: 300.02, ICD10: F41.1 (primary diagnosis) -Continue prozac 2. Situational depression - ICD9: 309.0, ICD10: F43.21 -Continue prozac 3. Dyslipidemia - ICD9: 272.4, ICD10: E78.5 - Controlled - Continue current medications - Counseled on healthy diet and regular exercise 4. Acquired hypothyroidism - ICD9: 244.9, ICD10: E03.9 - Instructed patient on importance of taking on an empty stomach either first thing in the morning or at bedtime. - continue current dose of Synthroid 0.088 mg 5. Gastroesophageal reflux disease with esophagitis without hemorrhage - ICD9: 530.81, 530.10, ICD10: K21.00 - Discussed lifestyle modifications including losing weight, limiting caffeine, no meals three hours before sleep, and head of bed elevation - Continue treatment with Nexium 40 mg every day 6. Vitamin B12 deficiency - ICD9: 266.2, ICD10: E53.8 -Continue supplementation 7. COPD with asthma (HCC) - ICD9: 493.20, ICD10: J44.89 - Moderate persistent asthma stable - Continue current medications - Avoidance of triggers recommended - SPIRIVA WITH HANDIHALER 18 MCG AND INHALATION CAPSULES 8. Vitamin D deficiency - ICD9: 268.9, ICD10: E55.9 -Continue supplementation 9. Smoker - ICD9: 305.1, ICD10: F17.200 - Cessation encouraged. - Physiologic and physical aspects of tobacco addiction as well as strategies for quitting were discussed. - Counseling was given focusing on the harmful effects of this addiction especially given the patient's medical condition(s) which will be worsened because of the chemicals in tobacco. Melany Blanc APRN.RN RECRUITMENT documented in this encounter [facility] 12-04-2023 History of Present illness Narrative Pt has appointment 12/05/23 with Melany. Copy of labs given to her nurse. Scan on 12/03/2023 4:39 PM by Provider, External, ROSA ELENA: Chemistry documented in this encounter [facility] 11-28-2023 Miscellaneous Notes The following approved medication requests have been transmitted electronically. Requested Prescriptions Signed Prescriptions Disp Refills SPIRIVA WITH HANDIHALER 18 mcg inhalation capsule 30 capsule 5 Sig: Inhale 1 capsule as instructed once daily. Use with handihaler. Fortino Logan MD documented in this encounter [facility] 11-25-2023 Miscellaneous Notes The following approved medication requests have been transmitted electronically. Requested Prescriptions Signed Prescriptions Disp Refills FLUoxetine (PROZAC) 20 mg capsule 30 capsule 5 Sig: Take 1 capsule by mouth once daily. Authorizing Provider: FORTINO LOGAN MD Patient calls and states that she had just talked to [facility] and they have not received her prescription. Called and spoke with Tuyet at [facility] who confirmed that prescription was never received. Please send prescription again. Ayana Bland RN documented in this encounter [facility] 11-25-2023 Miscellaneous Notes Pt notified rx has been sent to pharmacy. Francisco Carver LPN Let patient know script sent in so she can get started. The following approved medication requests have been transmitted electronically. Requested Prescriptions Signed Prescriptions Disp Refills FLUoxetine (PROZAC) 20 mg capsule 30 capsule 5 Sig: Take 1 capsule by mouth once daily. Authorizing Provider: FORTINO LOGAN MD Patient calling to ask to resume Fluoxetine. She says she is feeling a little stressed/depressed and having anxiety due to situation with her son. She has an appointment with Melany Blanc NP on 12/05/23 but is asking if PCP can refill the medication before then. She says in the past she thinks she started with 20 mg daily. Please advise. Thank you. Maria Isabelmikal Stewart RN. documented in this encounter [facility] 11-24-2023 Miscellaneous Notes The following approved medication requests have been transmitted electronically. Requested Prescriptions Signed Prescriptions Disp Refills albuterol (PROVENTIL) 2.5 mg /3 mL (0.083 %) nebulizer solution 300 mL 1 Sig: Use 3 mL via nebulizer every 6 hours as needed for wheezing/shortness of breath. Use over 5-15minutes. Authorizing Provider: FORTINO LOGAN albuterol HFA (PROAIR HFA) 90 mcg/actuation inhaler 3 Each 1 Sig: USE 2 INHALATIONS EVERY 6 HOURS INSTRUCTED NEEDED Authorizing Provider: FORTINO LOGAN MD Patient has been identified by name and date of : Yes, Provider Date Time Patient phones for refill(s): Requested Prescriptions Pending Prescriptions Disp Refills albuterol (PROVENTIL) 2.5 mg /3 mL (0.083 %) nebulizer solution 300 mL 1 Sig: Use 3 mL via nebulizer every 6 hours as needed for wheezing/shortness of breath. Use over 5-15minutes. albuterol HFA (PROAIR HFA) 90 mcg/actuation inhaler 3 Each 1 Sig: USE 2 INHALATIONS EVERY 6 HOURS INSTRUCTED NEEDED Date of last office visit in primary care: 08/06/2023 Date of next office visit in primary care: 12/05/2023 Please advise. Thank you. Maria Isabel Stewart RN. documented in this encounter [facility] 11-24-2023 Miscellaneous Notes The following approved medication requests have been transmitted electronically. Requested Prescriptions Signed Prescriptions Disp Refills tiotropium (SPIRIVA) 18 mcg inhalation capsule 30 capsule 1 Sig: Inhale 1 capsule as instructed once daily. Authorizing Provider: FORTINO LOGAN MD Patient has been identified by name and date of : Yes, Provider Date Time Patient phones for refill(s): Requested Prescriptions Pending Prescriptions Disp Refills tiotropium (SPIRIVA) 18 mcg inhalation capsule 30 capsule 1 Sig: Inhale 1 capsule as instructed once daily. Date of last office visit in primary care: 08/06/2023 Date of next office visit in primary care: 12/05/2023 Please advise. Thank you. Maria Isabel Stewart RN. documented in this encounter [facility] 08-29-2023 Miscellaneous Notes Noted. Sw spoke with patient in regards to Spiriva inhaler assistance. Sw reviewed [employer] application in depth to see if it mentioned patients with commercial plans were allowed to apply. Application notes that those with insurance coverage for medication, but having trouble with cost of medication may apply. Sw did not find anywhere on application that those with commercial insurance were not able to apply. Sw noted that she will mail out application to patient home along with consent form. Patient notes that she will review application and work on forms and bring back to Dr. Logan office for prescription completion. Patient thanked Dr. Logan for trying to help her with her inhaler cost issues. documented in this encounter [facility] 08-06-2023 Instructions Fortino Logan MD - 08/06/2023 11:53 AM EDT Go to [facility] at [email or web address] to get signed up documented in this encounter [facility] 10-25-2023 History of Present illness Narrative Chief Complaint Patient presents with: Follow Up HPI Brenda Villalobos is a 53 year old female who presents here today for change in inhaler. Patient currently uses nebulizer; albuterol and Advair. She was also using Spriva but with her insurance her out of pocket money for 3 months supply is $1200. She tried to go a few months without it. But feels she needs something else that will do the same thing but cheaper. Past medical history, appointments, medications, allergies reviewed. 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 Has been on omeprazole, pantoprazole and prevacid with no relief of symptoms. Nexium has been helpful and dexalant Insomnia 04/12/2014 OA (osteoarthrosis) 05/18/2021 Post-menopausal Situational depression 04/19/2020 Smoker 08/12/2013 Started at the age of 11 up to 1.5 PPD Spastic bladder 10/23/2018 Varicose veins of bilateral lower extremities with other complications 04/19/2020 bleeding at times Vitamin B12 deficiency 10/25/2020 Vitamin D deficiency Well adult exam 04/17/2016 last done: 04/19/20 Previous Surgical History PAST SURGICAL HISTORY Procedure Laterality Date 48 HOUR PH STUDY 09/13/2021 Demeester score-28.6; Dr. Gresham EGD TRANSORAL BIOPSY SINGLE/MULTIPLE 05/27/2016 EGD WITH BIOPSY(S) 09/13/2021 Dr. Gresham ESOPHAGOGASTRODUODENOSCOPY TRANSORAL DIAGNOSTIC 03/16/2020 OFFICE LEEP 2001 TOTAL ABDOMINAL HYSTERECT W/WO RMVL TUBE OVARY Bilateral 2002 bso Family History FAMILY HISTORY Problem Relation Age of Onset COPD Mother Heart Mother Thyroid Mother Hypertension Mother Kidney Disease Mother Kidney failure Asthma Mother Breast Cancer Mother Seizures Brother Coronary Artery Disease Maternal Grandmother Thyroid Daughter Diabetes Son Type 1 Hypertension Son Asthma Son Alzheimer's Disease Paternal Uncle Prostate Cancer Paternal Uncle Ovarian cancer No Family History Colon Cancer No Family History Hyperlipidemia No Family History Stroke No Family History Patient Allergies ALLERGIES Allergen Reactions Medrol Dose Pack [M* Swelling Swelling of throat Bactrim [Sulfametho* Itching Morphine Itching Trimethoprim Other: See Comments, Unknown Zoloft [Sertraline] Other: See Comments Chest felt heavy. Current Medications Current Outpatient Medications on File Prior to Visit Medication Sig oxaprozin (DAYPRO) 600 mg tablet Take 2 tablets by mouth once daily. senna (SENOKOT) 8.6 mg tab Take 1 tablet by mouth twice daily. tiotropium (SPIRIVA WITH HANDIHALER) 18 mcg inhalation capsule INHALE THE CONTENTS OF 1 CAPSULE DAILY INSTRUCTED. USE WITH HANDIHALER fluticasone-salmeterol HFA (ADVAIR HFA) 230-21 mcg/actuation inhaler Inhale 2 Puffs as instructed twice daily. levothyroxine (SYNTHROID) 88 mcg tablet Take one tab by mouth daily.Friday -Friday and none on Friday. esomeprazole (NEXIUM) 40 mg capsule Take 1 capsule by mouth twice daily before meals. tolterodine ER (DETROL LA) 4 mg 24 hr capsule Take 1 capsule by mouth once daily. (Patient not taking: Reported on 06/04/2023) ondansetron orally disintegrating (ZOFRAN ODT) 4 mg disintegrating tablet Take 1 tablet by mouth every 6 hours as needed for nausea/vomiting. albuterol (PROVENTIL) 2.5 mg /3 mL (0.083 %) nebulizer solution Use 3 mL via nebulizer every 6 hours as needed for wheezing/shortness of breath. Use over 5-15minutes. albuterol HFA (PROAIR HFA) 90 mcg/actuation inhaler USE 2 INHALATIONS EVERY 6 HOURS INSTRUCTED NEEDED hydrOXYzine HCl (ATARAX) 25 mg tablet Take 1-2 tabs by mouth prior to bed as needed for sleep. fluticasone (FLONASE) 50 mcg/actuation nasal spray Use 2 Sprays in each nostril once daily. Rinse mouth after use. Cholecalciferol, Vitamin D3, 50 mcg (2,000 unit) cap Take 1 capsule by mouth once daily. cyanocobalamin (VITAMIN B-12) 1,000 mcg tab Take 1 tablet by mouth once daily. ergocalciferol, vitamin D2, (VITAMIN D2 ORAL) Take by mouth. No current facility-administered medications on file prior to visit. Social History Social History Tobacco Use Smoking status: Every Day Packs/day: 0.50 Years: 40.00 Additional pack years: 0.00 Total pack years: 20.00 Types: Cigarettes Start date: 1981 Smokeless tobacco: Never Tobacco comments: Both parents smoked in childhood home. 1st AM cigarette within 5 minutes of waking up. 01/30/16. TO Vaping Use Vaping Use: Never used Substance Use Topics Alcohol use: No Drug use: No Review of Symptoms REVIEW OF SYSTEMS Sine not being able to be on the spiriva daily she has had increased symptoms and needing her rescue inhaler multiple times a day sometimes. EXAM: BP 134/84 (BP Site: Left Arm, BP Position: Sitting, BP Cuff Size: Regular Adult) Pulse 95 Wt 57.6 kg (127 lb) SpO2 97% BMI 22.86 kg/m General Appearance: Well appearing, alert, in no acute distress, well-hydrated, well nourished.. Lungs: No rhonchi, rales.. Faint inspiratory wheezing. Heart: RRR without murmur, gallop, or rubs. No ectopy. Health Maintenance List Colorectal Cancer Screening Never done Lung Cancer Screening Never done Mammogram Screening due on 05/13/2020 Covid-19 Vaccine(1) due on 06/04/2024 Annual PCP Team Chronic Disease Visit due on 06/04/2024 Diabetes Screening due on 06/02/2026 DTaP,Tdap,Td Vaccine(2 - Td or Tdap) due on 04/22/2028 Lipid Screening due on 06/02/2028 Spirometry Completed Hepatitis B Vaccine Discontinued Alpha-1 Antitrypsin Deficiency Screening Discontinued Pap Testing Discontinued HPV Testing Discontinued Influenza Vaccine Discontinued Hepatitis C Screening Discontinued HIV Screening Discontinued Shingrix Vaccine Discontinued Pneumococcal Vaccine Discontinued Data reviewed A/P ASSESSMENT/PLAN: 1. COPD with asthma - ICD9: 493.20, ICD10: J44.89 - Moderate persistent asthma worse - Avoidance of triggers recommended - the whole appt was spend trying to find an affordable option for the patient. I was able to find Advair discus 250/50 twice a day and duo neb areosol twice a day through the [facility] pharmacy site for about $210 for three months for each and patient said this was doable. She was going to get set up on the site and then let me know so the scripts can be sent in. I spent a total of 43 minutes on the date of the service which included preparing to see the patient, [id number] patient care, completing clinical documentation, performing a medically appropriate examination, counseling and educating the patient/family/caregiver and ordering medications, tests, or procedures. Fortino Logan MD documented in this encounter [facility] 07-03-2023 Miscellaneous Notes Pt returned call and given provider's message below with verbalized understanding. Left message for pt to contact office. Francisco Carver LPN Let patient know hip x-rays were ok. documented in this encounter [facility] 07-01-2023 History of Present illness Narrative Radiology Service Progress Note PATIENT NAME: Brenda Villalobos DATE OF SERVICE: July 01, 2023 TIME: 3:09 PM PATIENT IDENTITY VERIFICATION COMPLETED USING TWO (2) IDENTIFIERS: Name and Date of confirmed by patient verbally. FALL SCREENING: Has the patient had 2 falls in the last year or 1 fall with injury or currently using an Ambulatory Assistive Device (Walker, Cane, Wheelchair, Crutches, etc.)? No PATIENT GENDER DATA: Female. status: : No status: NO. PATIENT RELEVANT IMPLANT DATA REVIEWED: Yes RADIOLOGY DEPARTMENT: General X-ray: Exam(s) Completed: Pelvis X-Ray: Pelvis with Hip Bilateral PERIPHERAL IV DATA: Not applicable SIGNED BY: Meaghan Metz RT(R) July 01, 2023 3:09 PM documented in this encounter [facility] 06-04-2023 History of Present illness Narrative Chief Complaint Patient presents with: Physical HPI Brenda Villalobos is a 53 year old female who presents here today for Physical. Office visit - physical 06/04/2023 Patient with COPD, dyslipidemia, hypothyroidism, insomnia, elevated fasting blood sugar, smoker, GERD, MURIEL, Depression, Vit D def and Vit B12 def as well as those reviewed and addressed below and in ROS. Had Upper GI completed by Dr. Sauceda at [facility] on 03/21/2023. Also had Gastric Empty study completed at [facility] on 04/11/2023 Still getting pain in the groin area. Notes when driving, laying down but not when active with getting up or down, twisting or turning. Not always taking her Vit D and B12 regularly. Office visit 6 month follow up 12/04/2022 Patient with COPD, dyslipidemia, hypothyroidism, insomnia, elevated fasting blood sugar, smoker, GERD, MURIEL, Depression, Vit D def and Vit B12 def as well as those reviewed and addressed below and in ROS. Has not been taking her B12 in some time. Patient had a gastro bug last week with nausea, vomiting and diarrhea. No longer having the nausea, vomiting or diarrhea. Just not having any energy. No hematochezia, hematemesis or melena. Past medical history, appointments, medications, allergies reviewed. 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 Has been on omeprazole, pantoprazole and prevacid with no relief of symptoms. Nexium has been helpful and dexalant Insomnia 04/12/2014 OA (osteoarthrosis) 05/18/2021 Post-menopausal Situational depression 04/19/2020 Smoker 08/12/2013 Started at the age of 11 up to 1.5 PPD Spastic bladder 10/23/2018 Varicose veins of bilateral lower extremities with other complications 04/19/2020 bleeding at times Vitamin B12 deficiency 10/25/2020 Vitamin D deficiency Well adult exam 04/17/2016 last done: 04/19/20 Previous Surgical History PAST SURGICAL HISTORY Procedure Laterality Date 48 HOUR PH STUDY 09/13/2021 Demeester score-28.6; Dr. Gresham EGD TRANSORAL BIOPSY SINGLE/MULTIPLE 05/27/2016 EGD WITH BIOPSY(S) 09/13/2021 Dr. Gresham ESOPHAGOGASTRODUODENOSCOPY TRANSORAL DIAGNOSTIC 03/16/2020 OFFICE LEEP 2001 TOTAL ABDOMINAL HYSTERECT W/WO RMVL TUBE OVARY Bilateral 2002 bso Family History FAMILY HISTORY Problem Relation Age of Onset COPD Mother Heart Mother Thyroid Mother Hypertension Mother Kidney Disease Mother Kidney failure Asthma Mother Breast Cancer Mother Seizures Brother Coronary Artery Disease Maternal Grandmother Thyroid Daughter Diabetes Son Type 1 Hypertension Son Asthma Son Alzheimer's Disease Paternal Uncle Prostate Cancer Paternal Uncle Ovarian cancer No Family History Colon Cancer No Family History Hyperlipidemia No Family History Stroke No Family History Patient Allergies ALLERGIES Allergen Reactions Medrol Dose Pack [M* Swelling Swelling of throat Trimethoprim Other: See Comments, Unknown Bactrim [Sulfametho* Itching Morphine Itching Zoloft [Sertraline] Other: See Comments Chest felt heavy. Current Medications Current Outpatient Medications on File Prior to Visit Medication Sig tiotropium (SPIRIVA WITH HANDIHALER) 18 mcg inhalation capsule INHALE THE CONTENTS OF 1 CAPSULE DAILY INSTRUCTED. USE WITH HANDIHALER fluticasone-salmeterol HFA (ADVAIR HFA) 230-21 mcg/actuation inhaler Inhale 2 Puffs as instructed twice daily. levothyroxine (SYNTHROID) 88 mcg tablet Take one tab by mouth daily.Friday -Friday and none on Friday. esomeprazole (NEXIUM) 40 mg capsule Take 1 capsule by mouth twice daily before meals. tolterodine ER (DETROL LA) 4 mg 24 hr capsule Take 1 capsule by mouth once daily. ondansetron orally disintegrating (ZOFRAN ODT) 4 mg disintegrating tablet Take 1 tablet by mouth every 6 hours as needed for nausea/vomiting. senna (SENOKOT) 8.6 mg tab Take 1 tablet by mouth twice daily. albuterol (PROVENTIL) 2.5 mg /3 mL (0.083 %) nebulizer solution Use 3 mL via nebulizer every 6 hours as needed for wheezing/shortness of breath. Use over 5-15minutes. albuterol HFA (PROAIR HFA) 90 mcg/actuation inhaler USE 2 INHALATIONS EVERY 6 HOURS INSTRUCTED NEEDED hydrOXYzine HCl (ATARAX) 25 mg tablet Take 1-2 tabs by mouth prior to bed as needed for sleep. FLUoxetine HCl (PROZAC) 40 mg capsule Take 1 capsule by mouth twice daily. (Patient taking differently: Take 40 mg by mouth twice daily. Now just taking once a day) fluticasone (FLONASE) 50 mcg/actuation nasal spray Use 2 Sprays in each nostril once daily. Rinse mouth after use. Cholecalciferol, Vitamin D3, 50 mcg (2,000 unit) cap Take 1 capsule by mouth once daily. cyanocobalamin (VITAMIN B-12) 1,000 mcg tab Take 1 tablet by mouth once daily. ergocalciferol, vitamin D2, (VITAMIN D2 ORAL) Take by mouth. No current facility-administered medications on file prior to visit. Social History Social History Tobacco Use Smoking status: Every Day Packs/day: 0.50 Years: 40.00 Additional pack years: 0.00 Total pack years: 20.00 Types: Cigarettes Start date: 1981 Smokeless tobacco: Never Tobacco comments: Both parents smoked in childhood home. 1st AM cigarette within 5 minutes of waking up. 01/30/16. TO Vaping Use Vaping Use: Never used Substance Use Topics Alcohol use: No Drug use: No Review of Symptoms REVIEW OF SYSTEMS GENERAL: No weight loss, malaise or fevers HEENT: Negative for frequent or significant headaches, No changes in hearing or vision, no nose bleeds or other nasal problems NECK: Negative for lumps, goiter, pain and significant neck swelling RESPIRATORY: Negative for cough, hemoptysis, wheezing, COPD, dyspnea or shortness of breath CARDIOVASCULAR: Negative for chest pain, leg swelling, hypertension, CHF or palpitations GI: vomiting, or diarrhea. Still with nausea from her GERD. No blood : No history of dysuria, blood MUSCULOSKELETAL: has her chronic low back pain and bilateral groin pain. SKIN: Negative for lesions, rash, and itching PSYCH: Negative for mood disorder and recent psychosocial stressors. Sleep still not any better. HEMATOLOGY/LYMPHOLOGY: Negative for prolonged bleeding, bruising easily or swollen nodes ENDOCRINE: Negative for cold or heat intolerance, polyuria, polydipsia and goiter NEURO: No history of headaches, syncope, paralysis, seizures or tremors EXAM: BP 140/80 (BP Site: Left Arm, BP Position: Sitting, BP Cuff Size: Regular Adult) Pulse 84 Resp 16 Ht 158.8 cm (5' 2.5) Wt 59.4 kg (131 lb) BMI 23.58 kg/m BP 134/82 Pulse 84 Resp 16 Ht 158.8 cm (5' 2.5) Wt 59.4 kg (131 lb) BMI 23.58 kg/m General Appearance: Well appearing, alert, in no acute distress, well-hydrated, well nourished.. Skin: Skin color, texture, turgor normal, no suspicious rashes or lesions. Head: Normocephalic, no masses, lesions, tenderness or abnormalities. Eyes: Anicteric sclera. Pupils are equally round and reactive to light. Extraocular movements are intact. . Ears: External ears, TM's normal, canals clear. Nose/Sinuses: Nares normal, septum midline, mucosa normal, no drainage or sinus tenderness. Oropharynx: Lips, mucosa, and tongue normal, teeth and gums normal, oropharynx normal. Neck: Supple, no adenopathy; thyroid symmetric, normal size, no bruits. Lungs: . No rhonchi, rales.. Has chronic wheezing. Heart: RRR without murmur, gallop, or rubs. No ectopy. Abdomen: Normal abdominal exam, Abdomen soft, non-tender. Bowel sounds normal. No masses, organomegaly. Extremities: No deformities, edema, skin discoloration, Good capillary refill. . Musculoskeletal: Spine range of motion normal. Muscular strength intact, has pain in the groin with internal rotation of the Lt hip and external rotation of the Rt hip. . Peripheral Pulses: Normal. Neurologic: Gait normal. Reflexes normal and symmetric. Sensation to light touch and crainal nerves 2-12 intact.. Health Maintenance List COVID-19 VACCINE(1) Never done COLORECTAL CANCER SCREENING Never done LUNG CANCER SCREENING Never done MAMMOGRAM due on 05/13/2020 ANNUAL PCP TEAM CHRONIC DISEASE VISIT due on 12/04/2023 DIABETES SCREEN due on 10/23/2025 LIPID SCREEN due on 05/30/2027 DTAP,TDAP,TD(2 - Td or Tdap) due on 04/22/2028 SPIROMETRY Completed HEPATITIS B Discontinued ALPHA-1 ANTITRYPSIN DEFICIENCY SCREENING Discontinued PAP TESTING Discontinued HPV TESTING Discontinued INFLUENZA Discontinued HEPATITIS C SCREENING Discontinued HIV SCREENING Discontinued SHINGRIX VACCINE Discontinued PNEUMOCOCCAL Discontinued Data reviewed Component Latest Ref Rng & Units 10/23/2022 06/02/2023 WBC 3.4 - 10.8 K/uL 8.70 7.2 RBC 4.14 - 5.80 M/uL 4.14 4.35 Hemoglobin 12.6 - 17.7 g/dL 12.0 12.3 (A) Hematocrit 37.5 - 51.0 % 35.8 (L) 36.5 (A) MCV 79 - 97 fL 86.5 83.9 MCH 26.6 - 33 Pg 29.0 28.3 MCHC 31.5 - 35.7 g/dL 33.5 33.7 RDW-CV 11.5 - 15.0 % 13.4 Platelet Count 150 - 379 k/uL 446 (H) 380 (A) MPV 9.0 - 12.7 fL 9.2 Neut% % 46.5 Abs Neut (ANC) 1.45 - 7.50 k/uL 4.04 Lymph% % 39.1 Abs Lymph 1.00 - 4.00 k/uL 3.40 [place]% % 10.2 Abs [place] <0.87 k/uL 0.89 (H) Eosin% % 3.1 Abs Eosin <0.46 k/uL 0.27 Baso% % 0.8 Abs Baso <0.11 k/uL 0.07 Immature Gran % % 0.3 IMMATURE GRANS (ABS) <0.10 k/uL 0.03 NRBC /100 WBC 0.0 Absolute nRBC <0.01 k/uL <0.01 DTYPE Auto Protein, Total 6.3 - 8.0 g/dL 6.9 Albumin 3.2 - 4.6 gm/dL 4.2 3.6 Calcium 8.5 - 10.2 mg/dL 9.2 Bilirubin, Total 0.2 - 1.3 mg/dL 0.3 Alkaline Phosphatase 34 - 123 U/L 90 AST 8 - 37 U/L 25 10 ALT 7 - 38 U/L 25 Glucose 74 - 106 MG/DL 68 (L) 88 BUN 7 - 18 MG/DL 4 (L) 7 Creatinine 0.6 - 1.3 MG/DL 0.73 0.78 Sodium 136 - 144 mmol/L 135 (L) Potassium 3.7 - 5.1 mmol/L 4.2 Chloride 98 - 107 MEQ/L 101 103 CO2 21 - 32 MEQ/L 24 27 Anion Gap 9 - 18 mmol/L 10 eGFR >=60 mL/min/1.73m 98 NA 136 - 145 mmol/L 135 (A) K 3.5 - 5.1 mmol/L 3.8 GFR mL/MIN 82 GFR AFR AMER mL/MIN 99 Total Protein 6.4 - 8.2 gm/dL 7.3 Calcium 8.5 - 10.1 mg/dL 9.1 Bili Total 0.2 - 1 mg/dL 0.60 ALT (SGPT) 12 - 78 U/L 20 Alk Phos Total 45 - 117 U/L 84 RDW 12.3 - 15.4 % 12.9 Neutrophil % % 51 Lymphocyte % % 24.7 Monocyte % % 11.3 Eosinophil % % 1.9 Basophil % % 0.7 NEUTROPHILS ABSOLUTE 1.4 - 7.0 k/uL 3.7 LYMPHS ABSOLUTE 0.7 - 3.1 k/uL 2.51 Cholesterol, Total 200 210 (A) Triglyceride 150 95 HDL CHOLESTEROL 50 56 LDL CHOLESTEROL 130 135 (A) Hemoglobin A1C 0 - 5.7 % 5.4 5.2 Estimated Average Glucose mg/dL 108 Lipase 16 - 61 U/L 22 TSH 0.2 - 5.6 IU/ml 3.120 1.15 Vitamin B12 228 VITAMIN D 31 - 80 ng/mL 24 (A) Magnesium 2.5 A/P ASSESSMENT/PLAN: 1. Well adult exam - ICD9: V70.0, ICD10: Z00.00 (primary diagnosis) - Counseled on healthy diet and regular exercise - Calcium intake with supplements or by diet of 1000 mg/day for under 50, 7879-6176 mg/day for 50+ - Follow up for annual exam in one year - FECAL OCCULT BLOOD TEST 2. Dyslipidemia - ICD9: 272.4, ICD10: E78.5 - Controlled - Counseled on healthy diet and regular exercise 3. Elevated fasting blood sugar - ICD9: 790.21, ICD10: R73.01 - controlled with diet. 4. COPD with asthma (HCC) - ICD9: 493.20, ICD10: J44.9 - stable cont current Tx, 5. Acquired hypothyroidism - ICD9: 244.9, ICD10: E03.9 - Instructed patient on importance of taking on an empty stomach either first thing in the morning or at bedtime. - continue current dose of Synthroid 6. Gastroesophageal reflux disease with esophagitis without hemorrhage - ICD9: 530.81, 530.10, ICD10: K21.00 - Continue treatment with Nexium 40 mg BID 7. MURIEL (generalized anxiety disorder) - ICD9: 300.02, ICD10: F41.1 - doing ok and not wanting Tx. 8. Situational depression - ICD9: 309.0, ICD10: F43.21 - as per #7 9. Primary insomnia - ICD9: 307.42, ICD10: F51.01 - no changes. 10. Smoker - ICD9: 305.1, ICD10: F17.200 - CONSULT LUNG CANCER SCREENING CLINIC 11. Varicose veins of bilateral lower extremities with other complications - ICD9: 454.8, ICD10: I83.893 - cont support socks. 12. Vitamin B12 deficiency - ICD9: 266.2, ICD10: E53.8 - patient needs to be consistent with taking B12. 13. Vitamin D deficiency - ICD9: 268.9, ICD10: E55.9 - patient needs to be consistent with taking Vit D 14. Other constipation - ICD9: 564.09, ICD10: K59.09 Cont - SENNOSIDES 8.6 MG TABLET 15. OA (osteoarthrosis) - ICD9: 715.90, ICD10: M19.90 - stable 16. Bilateral groin pain - ICD9: 789.03, 789.04, ICD10: R10.31, R10.32 - XR HIP BILATERAL 5V PEL/AP/LAT EACH HIP - incase RLS will start ROPINIROLE 0.5 MG TABLET 17. Bilateral hip pain - ICD9: 719.45, ICD10: M25.551, M25.552 Check - XR HIP BILATERAL 5V PEL/AP/LAT EACH HIP 18. Encounter for screening for lung cancer - ICD9: V76.0, ICD10: Z12.2 - CONSULT LUNG CANCER SCREENING CLINIC 19. Screening for colon cancer - ICD9: V76.51, ICD10: Z12.11 Check - FECAL OCCULT BLOOD TEST Requested Prescriptions Signed Prescriptions Disp Refills senna (SENOKOT) 8.6 mg tab 180 tablet 1 Sig: Take 1 tablet by mouth twice daily. rOPINIRole (REQUIP) 0.5 mg tablet 60 tablet 5 Sig: Take one in the evening for two weeks then gpo to taking two in the evening. F/u 6 months routine check Vit D, B12 , A1c , lipid and TSH prior F/u in a month for groin pain. If no improvement will consult ortho. Fortino Logan MD documented in this encounter [facility] 05-07-2023 History of Present illness Narrative Scan on 05/06/2023 3:44 PM by Provider, ROSA ELENA Best: Consultation - General Surgery documented in this encounter [facility] 04-28-2023 Miscellaneous Notes The following approved medication requests have been transmitted electronically. Requested Prescriptions Signed Prescriptions Disp Refills tiotropium (SPIRIVA WITH HANDIHALER) 18 mcg inhalation capsule 90 capsule 1 Sig: INHALE THE CONTENTS OF 1 CAPSULE DAILY INSTRUCTED. USE WITH HANDIHALER Authorizing Provider: FORTINO LOGAN fluticasone-salmeterol HFA (ADVAIR HFA) 230-21 mcg/actuation inhaler 3 Each 1 Sig: Inhale 2 Puffs as instructed twice daily. Authorizing Provider: FORTINO LOGAN levothyroxine (SYNTHROID) 88 mcg tablet 90 tablet 1 Sig: Take one tab by mouth daily.Friday -Friday and none on Friday. Authorizing Provider: FORTINO LOGAN esomeprazole (NEXIUM) 40 mg capsule 180 capsule 1 Sig: Take 1 capsule by mouth twice daily before meals. Authorizing Provider: FORTINO LOGAN MD Pt requesting refills on pended scripts below. Reports that she needs a 90 day supply on each. Medication refill requested by Patient Please review and advise. Requested Prescriptions Pending Prescriptions Disp Refills tiotropium (SPIRIVA WITH HANDIHALER) 18 mcg inhalation capsule 90 capsule Sig: INHALE THE CONTENTS OF 1 CAPSULE DAILY INSTRUCTED. USE WITH HANDIHALER fluticasone-salmeterol HFA (ADVAIR HFA) 230-21 mcg/actuation inhaler 3 Each Sig: Inhale 2 Puffs as instructed twice daily. levothyroxine (SYNTHROID) 88 mcg tablet 90 tablet Sig: Take one tab by mouth daily.Friday -Friday and none on Friday. esomeprazole (NEXIUM) 40 mg capsule 180 capsule Sig: Take 1 capsule by mouth twice daily before meals. Last encounter with this provider: 12/04/2022 Next appt: 06/04/2023 WBC (k/uL) Date Value 10/23/2022 8.70 Hemoglobin (g/dL) Date Value 10/23/2022 12.0 Platelet Count (k/uL) Date Value 10/23/2022 446 (H) Glucose (mg/dL) Date Value 10/23/2022 68 (L) BUN (mg/dL) Date Value 10/23/2022 4 (L) Creatinine (mg/dL) Date Value 10/23/2022 0.73 Sodium (mmol/L) Date Value 10/23/2022 135 (L) Potassium (mmol/L) Date Value 10/23/2022 4.2 Calcium, Total (mg/dL) Date Value 10/23/2022 9.2 Alkaline Phosphatase (U/L) Date Value 10/23/2022 90 Bilirubin, Total (mg/dL) Date Value 10/23/2022 0.3 AST (U/L) Date Value 10/23/2022 25 ALT (U/L) Date Value 10/23/2022 25 Cholesterol (no units) Date Value 05/30/2022 185 Triglyceride (no units) Date Value 05/30/2022 98 TSH (mIU/L) Date Value 10/23/2022 3.120 documented in this encounter [facility] 04-21-2023 History of Present illness Narrative Scan on 04/11/2023 2:35 PM by External Provider, ROSA ELENA: Consultation - ROMINA Toscano MA documented in this encounter [facility] 03-26-2023 History of Present illness Narrative Scan on 03/21/2023 2:48 PM by External Provider, ROSA ELENA: ROMINA Toscano MA documented in this encounter [facility] 01-24-2023 Miscellaneous Notes Images from the original note were not included. Stella Gallagher APRN.RN RECRUITMENT [facility] Bariatric Clinical Pool 40 minutes ago (12:04 PM) I will send in 30 day refill but this is a HBC patient so will need to go to Dr. Gresham in the future Pharmacy faxed requesting the following refill. Requested Prescriptions Pending Prescriptions Disp Refills famotidine (PEPCID) 20 mg tablet [Pharmacy Med Name: FAMOTIDINE 20 MG TABLET] 60 tablet 3 Sig: take 2 tablets by mouth once daily Next Appointment: Visit date not found Patient Phone numbers: [phone] (home) Request is for script(s) to be escript to pharmacy. Karishma Arias documented in this encounter [facility] 01-16-2023 History of Present illness Narrative Patient presents with: Urinary Problem: Pt reported urinary frequency, burning x1 mth. HPI: Symptoms for 1 month. Dysuria: No Frequency: Yes with spasm/pain Hematuria: No Nausea: No Fever or chills: No Back pain: No Abdominal pain: No Prior UTI: remotely Personal history of kidney stones: No Family history of kidney stones: brother. MEDICATIONS: Current Outpatient Medications Medication Sig ondansetron orally disintegrating (ZOFRAN ODT) 4 mg disintegrating tablet Take 1 tablet by mouth every 6 hours as needed for nausea/vomiting. tiotropium (SPIRIVA WITH HANDIHALER) 18 mcg inhalation capsule INHALE THE CONTENTS OF 1 CAPSULE DAILY INSTRUCTED. USE WITH HANDIHALER fluticasone-salmeterol HFA (ADVAIR HFA) 230-21 mcg/actuation inhaler Inhale 2 Puffs as instructed twice daily. levothyroxine (SYNTHROID) 88 mcg tablet Take one tab by mouth daily.Friday -Friday and none on Friday. esomeprazole (NEXIUM) 40 mg capsule Take 1 capsule by mouth twice daily before meals. senna (SENOKOT) 8.6 mg tab Take 1 tablet by mouth twice daily. albuterol (PROVENTIL) 2.5 mg /3 mL (0.083 %) nebulizer solution Use 3 mL via nebulizer every 6 hours as needed for wheezing/shortness of breath. Use over 5-15minutes. albuterol HFA (PROAIR HFA) 90 mcg/actuation inhaler USE 2 INHALATIONS EVERY 6 HOURS INSTRUCTED NEEDED hydrOXYzine HCl (ATARAX) 25 mg tablet Take 1-2 tabs by mouth prior to bed as needed for sleep. FLUoxetine HCl (PROZAC) 40 mg capsule Take 1 capsule by mouth twice daily. (Patient taking differently: Take 40 mg by mouth twice daily. Now just taking once a day) fluticasone (FLONASE) 50 mcg/actuation nasal spray Use 2 Sprays in each nostril once daily. Rinse mouth after use. Cholecalciferol, Vitamin D3, 50 mcg (2,000 unit) cap Take 1 capsule by mouth once daily. ergocalciferol, vitamin D2, (VITAMIN D2 ORAL) Take by mouth. cyanocobalamin (VITAMIN B-12) 1,000 mcg tab Take 1 tablet by mouth once daily. No current facility-administered medications for this visit. ALLERGIES: ALLERGIES Allergen Reactions Medrol Dose Pack [M* Swelling Swelling of throat Trimethoprim Other: See Comments, Unknown Bactrim [Sulfametho* Itching Morphine Itching Zoloft [Sertraline] Other: See Comments Chest felt heavy. VITALS: BP 126/74 Pulse 90 Temp 36.6 C (97.8 F) (Tympanic) Resp 18 Wt 61.9 kg (136 lb 6.4 oz) SpO2 97% BMI 24.95 kg/m PHYSICAL EXAM: GEN: NAD HEENT: EOMI, conjunctiva clear, HEART: regular rate and rhythm, no murmurs LUNGS: clear to auscultation, no wheezes or crackles, no increased WOB ABDOMEN: Soft, nondistended, no masses, no suprapubic tenderness BACK: No CVA tenderness Patient presents with: Urinary Problem: Pt reported urinary frequency, burning x1 mth. HPI: Symptoms for 1 month. Treated by [employer] for this symptom in the past with detrol LA 6mg (4+2). Dysuria: No Frequency: Yes Hematuria: No Discharge/pruritis: No Nausea: No Fever or chills: No Back pain: No Abdominal pain: No Prior UTI: No Personal history of kidney stones: No Family history of kidney stones: brother PAST MEDICAL HISTORY Diagnosis Date Acquired hypothyroidism 04/25/2015 US 10/2017 showed enlarged right lobe but no nodules Allergic rhinitis 09/03/2013 ALEXYS III (cervical intraepithelial neoplasia grade III) with severe dysplasia Constipation 08/23/2015 COPD with asthma (HCC) Dyslipidemia 04/22/2018 Elevated fasting blood sugar 04/18/2017 Endometriosis, site unspecified Endometriosis MURIEL (generalized anxiety disorder) 05/18/2021 Gastric hyperplasia 10/18/2016 Gastro-esophageal reflux disease with esophagitis 10/18/2016 Patient with EGD proven esophagitis and gastric hyperplasia. Has been on omeprazole, pantoprazole and prevacid with no relief of symptoms. Nexium has been helpful and dexalant Insomnia 04/12/2014 OA (osteoarthrosis) 05/18/2021 Post-menopausal Situational depression 04/19/2020 Smoker 08/12/2013 Started at the age of 11 up to 1.5 PPD Spastic bladder 10/23/2018 Varicose veins of bilateral lower extremities with other complications 04/19/2020 bleeding at times Vitamin B12 deficiency 10/25/2020 Vitamin D deficiency Well adult exam 04/17/2016 last done: 04/19/20 PAST SURGICAL HISTORY Procedure Laterality Date 48 HOUR PH STUDY 09/13/2021 Demeester score-28.6; Dr. Gresham EGD TRANSORAL BIOPSY SINGLE/MULTIPLE 05/27/2016 EGD WITH BIOPSY(S) 09/13/2021 Dr. Gresham ESOPHAGOGASTRODUODENOSCOPY TRANSORAL DIAGNOSTIC 03/16/2020 OFFICE LEEP 2001 TOTAL ABDOMINAL HYSTERECT W/WO RMVL TUBE OVARY Bilateral 2002 bso MEDICATIONS: Current Outpatient Medications Medication Sig ondansetron orally disintegrating (ZOFRAN ODT) 4 mg disintegrating tablet Take 1 tablet by mouth every 6 hours as needed for nausea/vomiting. tiotropium (SPIRIVA WITH HANDIHALER) 18 mcg inhalation capsule INHALE THE CONTENTS OF 1 CAPSULE DAILY INSTRUCTED. USE WITH HANDIHALER fluticasone-salmeterol HFA (ADVAIR HFA) 230-21 mcg/actuation inhaler Inhale 2 Puffs as instructed twice daily. levothyroxine (SYNTHROID) 88 mcg tablet Take one tab by mouth daily.Friday -Friday and none on Friday. esomeprazole (NEXIUM) 40 mg capsule Take 1 capsule by mouth twice daily before meals. senna (SENOKOT) 8.6 mg tab Take 1 tablet by mouth twice daily. albuterol (PROVENTIL) 2.5 mg /3 mL (0.083 %) nebulizer solution Use 3 mL via nebulizer every 6 hours as needed for wheezing/shortness of breath. Use over 5-15minutes. albuterol HFA (PROAIR HFA) 90 mcg/actuation inhaler USE 2 INHALATIONS EVERY 6 HOURS INSTRUCTED NEEDED hydrOXYzine HCl (ATARAX) 25 mg tablet Take 1-2 tabs by mouth prior to bed as needed for sleep. FLUoxetine HCl (PROZAC) 40 mg capsule Take 1 capsule by mouth twice daily. (Patient taking differently: Take 40 mg by mouth twice daily. Now just taking once a day) fluticasone (FLONASE) 50 mcg/actuation nasal spray Use 2 Sprays in each nostril once daily. Rinse mouth after use. Cholecalciferol, Vitamin D3, 50 mcg (2,000 unit) cap Take 1 capsule by mouth once daily. ergocalciferol, vitamin D2, (VITAMIN D2 ORAL) Take by mouth. cyanocobalamin (VITAMIN B-12) 1,000 mcg tab Take 1 tablet by mouth once daily. No current facility-administered medications for this visit. ALLERGIES: ALLERGIES Allergen Reactions Medrol Dose Pack [M* Swelling Swelling of throat Trimethoprim Other: See Comments, Unknown Bactrim [Sulfametho* Itching Morphine Itching Zoloft [Sertraline] Other: See Comments Chest felt heavy. VITALS: BP 126/74 Pulse 90 Temp 36.6 C (97.8 F) (Tympanic) Resp 18 Wt 61.9 kg (136 lb 6.4 oz) SpO2 97% BMI 24.95 kg/m PHYSICAL EXAM: GEN: NAD HEENT: EOMI, conjunctiva clear, HEART: regular rate and rhythm, no murmurs LUNGS: clear to auscultation, no wheezes or crackles, no increased WOB ABDOMEN: Soft, nondistended, no masses, no suprapubic tenderness BACK: No CVA tenderness ASSESSMENT/PLAN: 1. Urinary frequency - ICD9: 788.41, ICD10: R35.0 - UA DIP, URINE (POC) - negative normal - TOLTERODINE ER 4 MG CAPSULE,EXTENDED RELEASE 24 HR Rx sent. Potential side effects discussed. She will avoid hydroxyzine while taking it. She has an upcoming appointment scheduled with her clinic assistant for ongoing treatment of this condition. Brayan Still MD documented in this encounter [facility] 12-24-2022 Miscellaneous Notes Order placed for consult to Dr. Sauceda in [place]. Please fax info to provider and then give patient the phone number to their office. documented in this encounter [facility] 12-04-2022 History of Present illness Narrative Chief Complaint Patient presents with: F/U 6 months HPI Brenda Villalobos is a 52 year old female who presents here today for 6 month follow up. Patient with COPD, dyslipidemia, hypothyroidism, insomnia, elevated fasting blood sugar, smoker, GERD, MURIEL, Depression, Vit D def and Vit B12 def as well as those reviewed and addressed below and in ROS. Has not been taking her B12 in some time. Patient had a gastro bug last week with nausea, vomiting and diarrhea. No longer having the nausea, vomiting or diarrhea. Just not having any energy. No hematochezia, hematemesis or melena. Past medical history, appointments, medications, allergies reviewed. 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 Has been on omeprazole, pantoprazole and prevacid with no relief of symptoms. Nexium has been helpful and dexalant Insomnia 04/12/2014 OA (osteoarthrosis) 05/18/2021 Post-menopausal Situational depression 04/19/2020 Smoker 08/12/2013 Started at the age of 11 up to 1.5 PPD Spastic bladder 10/23/2018 Varicose veins of bilateral lower extremities with other complications 04/19/2020 bleeding at times Vitamin B12 deficiency 10/25/2020 Vitamin D deficiency Well adult exam 04/17/2016 last done: 04/19/20 Previous Surgical History PAST SURGICAL HISTORY Procedure Laterality Date 48 HOUR PH STUDY 09/13/2021 Demeester score-28.6; Dr. Gresham EGD TRANSORAL BIOPSY SINGLE/MULTIPLE 05/27/2016 EGD WITH BIOPSY(S) 09/13/2021 Dr. Gresham ESOPHAGOGASTRODUODENOSCOPY TRANSORAL DIAGNOSTIC 03/16/2020 OFFICE LEEP 2001 TOTAL ABDOMINAL HYSTERECT W/WO RMVL TUBE OVARY Bilateral 2002 bso Family History FAMILY HISTORY Problem Relation Age of Onset COPD Mother Heart Mother Thyroid Mother Hypertension Mother Kidney Disease Mother Kidney failure Asthma Mother Breast Cancer Mother Seizures Brother Coronary Artery Disease Maternal Grandmother Thyroid Daughter Diabetes Son Type 1 Hypertension Son Asthma Son Alzheimer's Disease Paternal Uncle Prostate Cancer Paternal Uncle Ovarian cancer No Family History Colon Cancer No Family History Hyperlipidemia No Family History Stroke No Family History Patient Allergies ALLERGIES Allergen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 ergocalciferol, vitamin D2, (VITAMIN D2 ORAL) Take by mouth. FAMILY HISTORY Problem Relation Age of Onset COPD Mother Heart Mother Thyroid Mother Hypertension Mother Kidney Disease Mother Kidney failure Asthma Mother Breast Cancer Mother Seizures Brother Coronary Artery Disease Maternal Grandmother Thyroid Daughter Diabetes Son Type 1 Hypertension Son Asthma Son Alzheimer's Disease Paternal Uncle Prostate Cancer Paternal Uncle Ovarian cancer No Family History Colon Cancer No Family History Hyperlipidemia No Family History Stroke No Family History Social History Tobacco Use Smoking status: Every Day Packs/day: 0.50 Years: 40.00 Pack years: 20.00 Types: Cigarettes Start date: 1981 Smokeless tobacco: Never Tobacco comments: Both parents smoked in childhood home. 1st AM cigarette within 5 minutes of waking up. 01/30/16. TO Vaping Use Vaping Use: Never used Substance Use Topics Alcohol use: No Drug use: No ASSESSMENT/PLAN: 1. Acute pain of right shoulder - ICD9: 719.41, ICD10: M25.511 - CONSULT TO ORTHOPAEDICS - XR SHOULDER GENERAL 3V OR MORE AP/TRUE AP/OTHER RIGHT Patient does not want to do an x-ray right now but I did do an orthopedic consult so she will need an x-ray patient said she will come in next Friday to get the x-ray. And then patient will make her own orthopedic appointment. Patient was prescribed a 9-day prednisone taper educated about proper use of medication and supportive therapies. Patient says she has had prednisone before and done just fine with it. Even though she has the Medrol dose allergy. Patient will watch for symptoms of an allergic reaction patient will follow-up. Naila Toscano APRN.FUAD documented in this encounter [facility] 06-11-2022 Miscellaneous Notes Patient notified of results and provider's instructions. Patient verbalizes understanding. Francisco Carver LPN Let patient know US of thyroid shows enlargement of the right lobe but no discreet nodules. This may be due to the fact that her TSH was low indicating she was getting more hormone replacement then needed. Ask her to let me know in 3-4 weeks if still noting the pain on the right. If so I'm going to want her to see one of our surgeons to see if they feel it soul be biopsied. documented in this encounter [facility] 06-10-2022 History of Present illness Narrative Radiology Service Progress Note PATIENT NAME: Brenda Villalobos DATE OF SERVICE: June 10, 2022 TIME: 3:28 PM PATIENT IDENTITY VERIFICATION COMPLETED USING TWO (2) IDENTIFIERS: Name and Date of confirmed by patient verbally. FALL SCREENING: Has the patient had 2 falls in the last year or 1 fall with injury or currently using an Ambulatory Assistive Device (Walker, Cane, Wheelchair, Crutches, etc.)? No PATIENT GENDER DATA: Female. status: : No status: NO. PATIENT RELEVANT IMPLANT DATA REVIEWED: Not Applicable RADIOLOGY DEPARTMENT: Ultrasound PERIPHERAL IV DATA: Not applicable SIGNED BY: RT Mariana(R) June 10, 2022 3:28 PM documented in this encounter [facility] 06-05-2022 Miscellaneous Notes Patient calls and notified of results and providers instructions. Patient verbalizes understanding. Patient asking about prescription for water pill. She thought at appointment it was discussed but patient not certain if she misunderstood. Reviewed OV note with patient that if blood pressure is still elevated in 2 weeks at NC visit then at that time he would add the HCTZ 12.5 mg daily. Patient verbalized understanding. Please review and advise, Saad Kessler RN Left message for patient to contact office. ]Jd Toscano MA Let patient know x-ray of leg showed no fractures. She most likely has a bone bruise and this can take 6-8 weeks to resolve. documented in this encounter [facility] 06-03-2022 History of Present illness Narrative Chief Complaint Patient presents with: Physical HPI Brenda Villalobos is a 52 year old female who presents here today for Physical. Patient with COPD, dyslipidemia, hypothyroidism, insomnia, elevated fasting blood sugar, smoker, GERD, MURIEL, Depression, Vit D def and Vit B12 def as well as those reviewed and addressed below and in ROS. Patient has cut back on smoking to 1/2 a PPD. Patient is seeing heart burn center and they feel she needs surgery but want her to quit smoking first. Past medical history, appointments, medications, allergies reviewed. 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 Has been on omeprazole, pantoprazole and prevacid with no relief of symptoms. Nexium has been helpful and dexalant Insomnia 04/12/2014 OA (osteoarthrosis) 05/18/2021 Post-menopausal Situational depression 04/19/2020 Smoker 08/12/2013 Started at the age of 11 up to 1.5 PPD Spastic bladder 10/23/2018 Varicose veins of bilateral lower extremities with other complications 04/19/2020 bleeding at times Vitamin B12 deficiency 10/25/2020 Vitamin D deficiency Well adult exam 04/17/2016 last done: 04/19/20 Previous Surgical History PAST SURGICAL HISTORY Procedure Laterality Date 48 HOUR PH STUDY 09/13/2021 Demeester score-28.6; Dr. Gresham EGD TRANSORAL BIOPSY SINGLE/MULTIPLE 05/27/2016 EGD WITH BIOPSY(S) 09/13/2021 Dr. Gresham ESOPHAGOGASTRODUODENOSCOPY TRANSORAL DIAGNOSTIC 03/16/2020 OFFICE LEEP 2001 TOTAL ABDOMINAL HYSTERECT W/WO RMVL TUBE OVARY Bilateral 2002 bso Family History FAMILY HISTORY Problem Relation Age of Onset COPD Mother Heart Mother Thyroid Mother Hypertension Mother Kidney Disease Mother Kidney failure Asthma Mother Breast Cancer Mother Thyroid Daughter Seizures Brother Diabetes Son Type 1 Hypertension Son Asthma Son Coronary Artery Disease Maternal Grandmother Alzheimer's Disease Paternal Uncle Prostate Cancer Paternal Uncle Ovarian cancer No Family History Colon Cancer No Family History Hyperlipidemia No Family History Stroke No Family History Patient Allergies ALLERGIES Allergen Reactions Medrol Dose Pack [M* Swelling Swelling of throat Bactrim [Sulfametho* Itching Morphine Itching Zoloft [Sertraline] Other: See Comments Chest felt heavy. Current Medications Current Outpatient Medications on File Prior to Visit Medication Sig naproxen (NAPROSYN) 500 mg tablet Take 1 tablet by mouth twice daily as needed (for pain/inflammation). Take with food. famotidine (PEPCID) 20 mg tablet Take 2 tablets by mouth once daily. cyclobenzaprine (FLEXERIL) 5 mg tablet Take 1 tablet by mouth twice daily as needed. (Patient not taking: Reported on 05/30/2022) levothyroxine (SYNTHROID) 88 mcg tablet Take one tab by mouth daily. (Patient not taking: Reported on 05/16/2022 ) levothyroxine (SYNTHROID) 88 mcg tablet Take one tab by mouth daily. albuterol (PROVENTIL) 2.5 mg /3 mL (0.083 %) nebulizer solution Use 3 mL via nebulizer every 6 hours as needed for wheezing/shortness of breath. Use over 5-15minutes. albuterol HFA (PROAIR HFA) 90 mcg/actuation inhaler USE 2 INHALATIONS EVERY 6 HOURS INSTRUCTED NEEDED esomeprazole (NEXIUM) 40 mg capsule Take 1 capsule by mouth twice daily before meals. fluticasone-salmeterol HFA (ADVAIR HFA) 230-21 mcg/actuation inhaler Inhale 2 Puffs as instructed twice daily. hydrOXYzine HCl (ATARAX) 25 mg tablet Take 1-2 tabs by mouth prior to bed as needed for sleep. tiotropium (SPIRIVA WITH HANDIHALER) 18 mcg inhalation capsule INHALE THE CONTENTS OF 1 CAPSULE DAILY INSTRUCTED. USE WITH HANDIHALER senna (SENOKOT) 8.6 mg tab Take 1 tablet by mouth twice daily. FLUoxetine HCl (PROZAC) 40 mg capsule Take 1 capsule by mouth twice daily. (Patient taking differently: Take 40 mg by mouth twice daily. Now just taking once a day) diclofenac potassium (CATAFLAM) 50 mg tablet Take 1 tablet by mouth three times daily. Take with food. (Patient not taking: Reported on 05/30/2022) fluticasone (FLONASE) 50 mcg/actuation nasal spray Use 2 Sprays in each nostril once daily. Rinse mouth after use. Cholecalciferol, Vitamin D3, 50 mcg (2,000 unit) cap Take 1 capsule by mouth once daily. cyanocobalamin (VITAMIN B-12) 1,000 mcg tab Take 1 tablet by mouth once daily. (Patient not taking: Reported on 05/16/2022 ) ergocalciferol, vitamin D2, (VITAMIN D2 ORAL) Take by mouth. No current facility-administered medications on file prior to visit. Social History Social History Tobacco Use Smoking status: Every Day Packs/day: 0.50 Years: 40.00 Pack years: 20.00 Types: Cigarettes Start date: 1981 Smokeless tobacco: Never Tobacco comments: Both parents smoked in childhood home. 1st AM cigarette within 5 minutes of waking up. 01/30/16. TO Vaping Use Vaping Use: Never used Substance Use Topics Alcohol use: No Drug use: No Review of Symptoms REVIEW OF SYSTEMS GENERAL: No weight loss, malaise or fevers HEENT: Negative for frequent or significant headaches, No changes in hearing or vision, no nose bleeds or other nasal problems. Just her usual sinuses drainage. NECK: Negative for lumps, goiter, pain and significant neck swelling RESPIRATORY: Negative for cough, hemoptysis, increased wheezing, COPD, dyspnea or shortness of breath CARDIOVASCULAR: Negative for chest pain, leg swelling, hypertension, CHF or palpitations. GI: No nausea, vomiting, or diarrhea and no blood. Still with break through GERD. : No history of dysuria, frequency or incontinence MUSCULOSKELETAL: Negative for new joint pain or swelling, back pain or muscle pain. Was seen in the office lasyt week for leg/ankle swelling. X-ray of ankle was normal. SKIN: Negative for lesions, rash, and itching PSYCH: Negative for sleep disturbance, mood disorder and recent psychosocial stressors HEMATOLOGY/LYMPHOLOGY: Negative for prolonged bleeding, bruising easily or swollen nodes ENDOCRINE: Negative for cold or heat intolerance, polyuria, polydipsia and goiter NEURO: No history of headaches, syncope, paralysis, seizures or tremors EXAM: BP 120/94 (BP Site: Left Arm, BP Position: Sitting, BP Cuff Size: Regular Adult) Pulse 76 Resp 16 Ht 157.5 cm (5' 2) Wt 64.4 kg (142 lb) BMI 25.97 kg/m BP 142/92 Pulse 76 Resp 16 Ht 157.5 cm (5' 2) Wt 64.4 kg (142 lb) BMI 25.97 kg/m General Appearance: Well appearing, alert, in no acute distress, well-hydrated, well nourished.. Skin: Skin color, texture, turgor normal, no suspicious rashes or lesions. Head: Normocephalic, no masses, lesions, tenderness or abnormalities. Eyes: Anicteric sclera. Pupils are equally round and reactive to light. Extraocular movements are intact. . Ears: External ears, TM's normal, canals clear. Neck: Supple, no adenopathy; thyroid symmetric, normal size, no bruits. Right side of thyroid is tender. Lungs: No rhonchi, rales. Mild scattered inspiratory wheeze.. Heart: RRR without murmur, gallop, or rubs. No ectopy. Abdomen: Normal abdominal exam, Abdomen soft, non-tender. Bowel sounds normal. No masses, organomegaly. Extremities: No deformities, edema, skin discoloration, Good capillary refill. . Musculoskeletal: Muscular strength intact, No joint swelling, deformity. Has tenderness over the later lower left fibula. Peripheral Pulses: Normal. Neurologic: Gait normal. Reflexes normal and symmetric. Sensation to light touch and crainal nerves 2-12 intact.. Health Maintenance List HEPATITIS B(1 of 3 - 3-dose series) Never done COVID-19 VACCINE(1) Never done PNEUMOCOCCAL(1 - PCV) Never done ALPHA-1 ANTITRYPSIN DEFICIENCY SCREENING Never done COLORECTAL CANCER SCREENING Never done LUNG CANCER SCREENING Never done PAP TESTING due on 12/09/2019 HPV TESTING due on 12/09/2019 MAMMOGRAM due on 05/13/2020 ANNUAL PCP TEAM CHRONIC DISEASE VISIT due on 05/30/2023 DIABETES SCREEN due on 10/23/2024 LIPID SCREEN due on 10/23/2026 DTAP,TDAP,TD(2 - Td or Tdap) due on 04/22/2028 SPIROMETRY Completed INFLUENZA Discontinued HEPATITIS C SCREENING Discontinued HIV SCREENING Discontinued SHINGRIX VACCINE Discontinued Data reviewed Component Latest Ref Rng & Units 05/30/2022 WBC 3.4 - 10.8 K/uL 10.1 RBC 4.14 - 5.80 M/uL 4.45 Hemoglobin 12.6 - 17.7 g/dL 12.4 (A) Hematocrit 37.5 - 51.0 % 37.3 (A) MCV 79 - 97 fL 83.8 MCH 26.6 - 33 Pg 27.9 MCHC 31.5 - 35.7 g/dL 33.2 RDW 12.3 - 15.4 % 13.4 Platelet Count 150 - 379 k/uL 470 (A) Neutrophil % % 60.7 Lymphocyte % % 26.6 Monocyte % % 10.0 Eosinophil % % 1.8 Basophil % % 0.4 NEUTROPHILS ABSOLUTE 1.4 - 7.0 k/uL 6.1 LYMPHS ABSOLUTE 0.7 - 3.1 k/uL 2.69 NA 136 - 145 mmol/L 134 (A) K 3.5 - 5.1 mmol/L 3.2 (A) Chloride 98 - 107 MEQ/L 101 CO2 21 - 32 MEQ/L 27 Glucose 74 - 106 MG/DL 72 (A) BUN 7 - 18 MG/DL 6 (A) Creatinine 0.6 - 1.3 MG/DL 0.63 GFR mL/MIN 105 Total Protein 6.4 - 8.2 gm/dL 7.4 Albumin 3.2 - 4.6 gm/dL 3.6 Calcium 8.5 - 10.1 mg/dL 8.8 Bili Total 0.2 - 1 mg/dL 0.4 AST 8 - 37 U/L 16 ALT (SGPT) 12 - 78 U/L 23 Alk Phos Total 45 - 117 U/L 90 Cholesterol, Total 200 185 Triglyceride 150 98 HDL CHOLESTEROL 50 53 LDL Cholesterol 130 112 Hemoglobin A1C 0 - 5.7 % 5.5 Vitamin B12 211 - 911 308 VITAMIN D 31 - 80 ng/mL 35.4 TSH 0.358 - 3.74 IU/ml 0.22 (A) A/P ASSESSMENT/PLAN: 1. Well adult exam - ICD9: V70.0, ICD10: Z00.00 (primary diagnosis) - Counseled on healthy diet and regular exercise - Calcium intake with supplements or by diet of 1000 mg/day for under 50, 3804-6029 mg/day for 50+ - Follow up for annual exam in one year - FECAL OCCULT BLOOD TEST 2. Acquired hypothyroidism - ICD9: 244.9, ICD10: E03.9 - Instructed patient on importance of taking on an empty stomach either first thing in the morning or at bedtime. - TSH slightly low change - LEVOTHYROXINE 88 MCG TABLET to one tab daily Mon-Sat and none on Sun. - recheck TSH in 2 months. 3. Dyslipidemia - ICD9: 272.4, ICD10: E78.5 - good control - Encouraged following a low fat, low cholesterol diet. - Discussed the benefits of regular aerobic exercise and weight loss. - Encouraged following a low carbohydrate, healthy oil intake diet. - Continue current therapy. 4. Elevated fasting blood sugar - ICD9: 790.21, ICD10: R73.01 - good A1c. Patient to cont life style modifications. 5. COPD with asthma (HCC) - ICD9: 493.20, ICD10: J44.9 Mild persistent Asthma stable - Continue current meds - Avoidance of triggers recommended 6. Gastroesophageal reflux disease with esophagitis without hemorrhage - ICD9: 530.81, 530.10, ICD10: K21.00 - cont current Tx and f/u with heartburn center. 7. MURIEL (generalized anxiety disorder) - ICD9: 300.02, ICD10: F41.1 - cont current Tx. 8. Situational depression - ICD9: 309.0, ICD10: F43.21 - as per #7 9. Allergic rhinitis, unspecified seasonality, unspecified trigger - ICD9: 477.9, ICD10: J30.9 - will stop the Flonase and go back to Singulair. February ozzy to alternate every 6 months. 10. Primary insomnia - ICD9: 307.42, ICD10: F51.01 - stable no changes. 11. Vitamin B12 deficiency - ICD9: 266.2, ICD10: E53.8 - cont replacement 12. Vitamin D deficiency - ICD9: 268.9, ICD10: E55.9 - cont replacement 13. Left leg pain - ICD9: 729.5, ICD10: M79.605 Check - XR TIBIA FIBULA 2V AP/LAT LEFT 14. Thyroid pain - ICD9: 246.8, ICD10: E07.89 Check - US THYROID/PARATHYROID 15. Elevated blood pressure reading without diagnosis of hypertension - ICD9: 796.2, ICD10: R03.0 - Encouraged dietary sodium restriction/DASH diet - Recommended regular aerobic exercise. - Recommend home blood pressure monitoring, to bring results in on next visit - will check BP in 2 weeks and if not better will start HCTZ 12.5 mg a day. - Goal of BP <130/80 16. Smoker - ICD9: 305.1, ICD10: F17.200 - Cessation encouraged. - Counseling was given focusing on the harmful effects of this addiction especially given the patient's medical condition(s) which will be worsened because of the chemicals in tobacco. - CONSULT LUNG CANCER SCREENING CLINIC 17. Encounter for screening for lung cancer - ICD9: V76.0, ICD10: Z12.2 - CONSULT LUNG CANCER SCREENING CLINIC 18. Screening for colon cancer - ICD9: V76.51, ICD10: Z12.11 - FECAL OCCULT BLOOD TEST 9. Hypokalemia - ICD9: 276.8, ICD10: E87.6 - patient plans to start an OTC supplement. In 2 months check - BASIC METABOLIC PNL 20. Thrombocytosis - ICD9: 238.71, ICD10: D75.839 In 2 months check - CBC + DIFF Requested Prescriptions Signed Prescriptions Disp Refills albuterol (PROVENTIL) 2.5 mg /3 mL (0.083 %) nebulizer solution 300 mL 1 Sig: Use 3 mL via nebulizer every 6 hours as needed for wheezing/shortness of breath. Use over 5-15minutes. albuterol HFA (PROAIR HFA) 90 mcg/actuation inhaler 3 Each 1 Sig: USE 2 INHALATIONS EVERY 6 HOURS INSTRUCTED NEEDED fluticasone-salmeterol HFA (ADVAIR HFA) 230-21 mcg/actuation inhaler 3 Inhaler 1 Sig: Inhale 2 Puffs as instructed twice daily. tiotropium (SPIRIVA WITH HANDIHALER) 18 mcg inhalation capsule 90 capsule 1 Sig: INHALE THE CONTENTS OF 1 CAPSULE DAILY INSTRUCTED. USE WITH HANDIHALER levothyroxine (SYNTHROID) 88 mcg tablet 90 tablet 1 Sig: Take one tab by mouth daily. montelukast (SINGULAIR) 10 mg tablet 90 tablet 1 Sig: Take 1 tablet by mouth daily at bedtime. F/u NV 2 weeks BP check F/u 6 months routine Fortnio Logan MD 1 documented in this encounter [facility] 05-30-2022 History of Present illness Narrative Radiology Service Progress Note PATIENT NAME: Brenda Villalobos DATE OF SERVICE: May 30, 2022 TIME: 10:14 AM PATIENT IDENTITY VERIFICATION COMPLETED USING TWO (2) IDENTIFIERS: Name and Date of confirmed by patient verbally. FALL SCREENING: Has the patient had 2 falls in the last year or 1 fall with injury or currently using an Ambulatory Assistive Device (Walker, Cane, Wheelchair, Crutches, etc.)? No PATIENT GENDER DATA: Female. status: : No status: NO. PATIENT RELEVANT IMPLANT DATA REVIEWED: Not Applicable RADIOLOGY DEPARTMENT: General X-ray: Exam(s) Completed: Lower Extremity X-Ray(s): Ankle, Left and Wt. Bearing PERIPHERAL IV DATA: Not applicable SIGNED BY: RT Ary(R) May 30, 2022 10:14 AM documented in this encounter [facility] 05-30-2022 History of Present illness Narrative Chief Complaint Patient presents with: swelling in lft lower leg and ankle last week: Pt states hit lower lft leg on something metal pretty hard a few months back ' HPI Brenda Villalobos is a 52 year old female who presents here today for Above Complaints.. Ankle pain/swelling -- L ankle pain x 1-2 weeks. Mild pain 2/10. Able to ambulate without difficulty. Full ROM. No discoloration to area. No pitting edema. Denies any known fall or injury. Did hit a metal frame 2 months ago in same area that resolved quickly. OTC tylenol and motrin as needed with minimal relief. Fractured L foot in 2017. Foot always gives her trouble -- has been told this is likely arthritis in the past. No other concerns or complaints. Has routine wellness exam on Friday with Dr. Logan. Past medical history, appointments, medications, allergies reviewed. 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 Has been on omeprazole, pantoprazole and prevacid with no relief of symptoms. Nexium has been helpful and dexalant Insomnia 04/12/2014 OA (osteoarthrosis) 05/18/2021 Post-menopausal Situational depression 04/19/2020 Smoker 08/12/2013 Started at the age of 11 up to 1.5 PPD Spastic bladder 10/23/2018 Varicose veins of bilateral lower extremities with other complications 04/19/2020 bleeding at times Vitamin B12 deficiency 10/25/2020 Vitamin D deficiency Well adult exam 04/17/2016 last done: 04/19/20 Previous Surgical History PAST SURGICAL HISTORY Procedure Laterality Date 48 HOUR PH STUDY 09/13/2021 Demeester score-28.6; Dr. Gresham EGD TRANSORAL BIOPSY SINGLE/MULTIPLE 05/27/2016 EGD WITH BIOPSY(S) 09/13/2021 Dr. Gresham ESOPHAGOGASTRODUODENOSCOPY TRANSORAL DIAGNOSTIC 03/16/2020 OFFICE LEEP 2001 TOTAL ABDOMINAL HYSTERECT W/WO RMVL TUBE OVARY Bilateral 2002 bso Family History FAMILY HISTORY Problem Relation Age of Onset COPD Mother Heart Mother Thyroid Mother Hypertension Mother Kidney Disease Mother Kidney failure Asthma Mother Breast Cancer Mother Thyroid Daughter Seizures Brother Diabetes Son Type 1 Hypertension Son Asthma Son Coronary Artery Disease Maternal Grandmother Alzheimer's Disease Paternal Uncle Prostate Cancer Paternal Uncle Ovarian cancer No Family History Colon Cancer No Family History Hyperlipidemia No Family History Stroke No Family History Patient Allergies ALLERGIES Allergen Reactions Medrol Dose Pack [M* Swelling Swelling of throat Bactrim [Sulfametho* Itching Morphine Itching Zoloft [Sertraline] Other: See Comments Chest felt heavy. Current Medications Current Outpatient Medications on File Prior to Visit Medication Sig famotidine (PEPCID) 20 mg tablet Take 2 tablets by mouth once daily. levothyroxine (SYNTHROID) 88 mcg tablet Take one tab by mouth daily. albuterol (PROVENTIL) 2.5 mg /3 mL (0.083 %) nebulizer solution Use 3 mL via nebulizer every 6 hours as needed for wheezing/shortness of breath. Use over 5-15minutes. albuterol HFA (PROAIR HFA) 90 mcg/actuation inhaler USE 2 INHALATIONS EVERY 6 HOURS INSTRUCTED NEEDED esomeprazole (NEXIUM) 40 mg capsule Take 1 capsule by mouth twice daily before meals. fluticasone-salmeterol HFA (ADVAIR HFA) 230-21 mcg/actuation inhaler Inhale 2 Puffs as instructed twice daily. hydrOXYzine HCl (ATARAX) 25 mg tablet Take 1-2 tabs by mouth prior to bed as needed for sleep. tiotropium (SPIRIVA WITH HANDIHALER) 18 mcg inhalation capsule INHALE THE CONTENTS OF 1 CAPSULE DAILY INSTRUCTED. USE WITH HANDIHALER senna (SENOKOT) 8.6 mg tab Take 1 tablet by mouth twice daily. FLUoxetine HCl (PROZAC) 40 mg capsule Take 1 capsule by mouth twice daily. (Patient taking differently: Take 40 mg by mouth twice daily. Now just taking once a day) fluticasone (FLONASE) 50 mcg/actuation nasal spray Use 2 Sprays in each nostril once daily. Rinse mouth after use. Cholecalciferol, Vitamin D3, 50 mcg (2,000 unit) cap Take 1 capsule by mouth once daily. ergocalciferol, vitamin D2, (VITAMIN D2 ORAL) Take by mouth. cyclobenzaprine (FLEXERIL) 5 mg tablet Take 1 tablet by mouth twice daily as needed. (Patient not taking: Reported on 05/30/2022) levothyroxine (SYNTHROID) 88 mcg tablet Take one tab by mouth daily. (Patient not taking: Reported on 05/16/2022 ) diclofenac potassium (CATAFLAM) 50 mg tablet Take 1 tablet by mouth three times daily. Take with food. (Patient not taking: Reported on 05/30/2022) cyanocobalamin (VITAMIN B-12) 1,000 mcg tab Take 1 tablet by mouth once daily. (Patient not taking: Reported on 05/16/2022 ) No current facility-administered medications on file prior to visit. Social History Social History Tobacco Use Smoking status: Every Day Packs/day: 0.50 Years: 40.00 Pack years: 20.00 Types: Cigarettes Start date: 1981 Smokeless tobacco: Never Tobacco comments: Both parents smoked in childhood home. 1st AM cigarette within 5 minutes of waking up. 01/30/16. TO Vaping Use Vaping Use: Never used Substance Use Topics Alcohol use: No Drug use: No REVIEW OF SYSTEMS: as above Reviewed relevant PMHx, PSHx, Social Hx, current medications and allergies. Review of Symptoms REVIEW OF SYSTEMS See HPI. All other systems are negative. EXAM: BP 120/78 (BP Site: Left Arm, BP Position: Sitting, BP Cuff Size: Regular Adult) Pulse 60 Resp 16 Wt 64.8 kg (142 lb 12.8 oz) BMI 26.12 kg/m General Appearance: Well appearing, alert, in no acute distress, well-hydrated, well nourished.. Skin: Skin color, texture, turgor normal, no suspicious rashes or lesions. Head: Normocephalic, no masses, lesions, tenderness or abnormalities. Extremities: No deformities, edema, skin discoloration, clubbing or cyanosis. Good capillary refill. L ankle with mild swelling. Full ROM. Good strength. Musculoskeletal: No joint swelling, deformity, or tenderness. Peripheral Pulses: Normal. Neurologic: Gait normal. Reflexes normal and symmetric. Sensation grossly intact.. Health Maintenance List HEPATITIS B(1 of 3 - 3-dose series) Never done COVID-19 VACCINE(1) Never done PNEUMOCOCCAL(1 - PCV) Never done ALPHA-1 ANTITRYPSIN DEFICIENCY SCREENING Never done COLORECTAL CANCER SCREENING Never done LUNG CANCER SCREENING Never done PAP TESTING due on 12/09/2019 HPV TESTING due on 12/09/2019 MAMMOGRAM due on 05/13/2020 ANNUAL PCP TEAM CHRONIC DISEASE VISIT due on 11/23/2022 DIABETES SCREEN due on 10/23/2024 LIPID SCREEN due on 10/23/2026 DTAP,TDAP,TD(2 - Td or Tdap) due on 04/22/2028 SPIROMETRY Completed INFLUENZA Discontinued HEPATITIS C SCREENING Discontinued HIV SCREENING Discontinued SHINGRIX VACCINE Discontinued ASSESSMENT/PLAN: 1. Acute left ankle pain - ICD9: 719.47, ICD10: M25.572 X-ray ankle. R.I.C.E. therapy discussed. Short-term naproxen BID prn. Rest, ice area, and elevate extremity. - XR ANKLE GENERAL 3V AP/LAT/OBL LEFT - NAPROXEN 500 MG TABLET RTO if symptoms worsen or do not improve. Prescription instructions reviewed with patient as applicable. Potential red flag symptoms discussed with the patient. Reviewed appropriate action plan to take if red flag symptoms occur. Patient agreeable to treatment plan. 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 Left message of same on pt's vm. Francisco Carver LPN Orders signed. See below. Pt calling to get lab orders for [facility] to get lab work done. She has an apt next week. Please call pt when orders are ready for pick in Medical Records.. Pt does not want them faxed. Marion Spaulding LPN documented in this encounter [facility] 05-16-2022 Note HNO ID: [id number] Author: Alexia Gresham MD Service: ? Author Type: Physician Type: Progress Notes Filed: 05/16/2022 11:52 AM Note Text: SURGICAL SERVICES HISTORY AND PHYSICAL EXAMINATION SERVICE DATE: 05/16/2022 SERVICE TIME: 11:37 AM PRIMARY CARE PHYSICIAN: Fortino Logan MD SUBJECTIVE CHIEF COMPLAINT: reflux HISTORY OF PRESENT ILLNESS: Ms. Villalobos is a 52 year old female with a PMH of hypothyroidism (synthroid), COPD with asthma (well-controlled; rare use of rescue inhalor), HLD, endometriosis (s/p JEFFREY), spastic bladder, tobacco abuse, and GERD with esophagitis who presents for follow up after GERD evaluation. I last saw her in clinic on 10/02/21 at which time she stated medical management was not working for her and she wished to pursue surgical intervention. However, she was still smoking at that time and we discussed the need for smoking cessation prior to this visit. I had ordered a nicotine test, but that has not yet been completed. At the last visit she had cut down to 1/2 ppd. Today she reports she is down to 5 cigarettes. She tried using CBD gummies to help her stop smoking, but these made her GERD symptoms worse. She believes her symptoms of GERD are slowly worsening. Symptoms are not worse at any particular time of the day. She also tried vinegar pills, which did not help. Per my previous notes: Work-up: - UGI: moderate volume of reflux to the mid esophageal level - EGD: patulous GE junction with Hill grade 2 GEJ - Path: Mild chronic gastritis. ?The Helicobacter pylori pattern of inflammation is not identified - Rodriguez: DeMeester 28.6; 100% SAP for regurgitation ? Please see my past clinic note from 08/07/21 for her full history: She endorses a long history of GERD symptoms which began back prior to 2015. She has been on Nexium since that time. Then in April she experienced worsening of GERD after starting Cataflam in April. Since then her symptoms have worsened drastically and she was started on Carafate. She stopping the Cataflam, but symptoms have continued. She is now on high dose Nexium of 40 mg BID and continues with severe nocturnal and day time symptoms. She denies dysphagia. She denies unexplained weight loss. She does endorse cough, which she believes is associated with her history of COPD and asthma. Once per week she experience severe acid regurgitation. She also has epigastric soreness and LUQ pain. ? Workup: - EGD (03/13/2020): no abnormalities. - EGD (05/2016): gastritis, non-severe reflux esophagitis - Pathology WNL ? Social: smokes 1 ppd since the age of of 11 (40 years); denies use of etoh or marijuana or other drug use. She works in [employer] - and is very active at work ? PSHx: JEFFREY (open) PAST MEDICAL HISTORY: PAST MEDICAL HISTORY Diagnosis Date - Acquired hypothyroidism 04/25/2015 US 10/2017 showed enlarged right lobe but no nodules - Allergic rhinitis 09/03/2013 - ALEXYS III (cervical intraepithelial neoplasia grade III) with severe dysplasia - Constipation 08/23/2015 - COPD with asthma (HCC) - Dyslipidemia 04/22/2018 - Elevated fasting blood sugar 04/18/2017 - Endometriosis, site unspecified Endometriosis - MURIEL (generalized anxiety disorder) 05/18/2021 - Gastric hyperplasia 10/18/2016 - Gastro-esophageal reflux disease with esophagitis 10/18/2016 Patient with EGD proven esophagitis and gastric hyperplasia. Has been on omeprazole, pantoprazole and prevacid with no relief of symptoms. Nexium has been helpful and dexalant - Insomnia 04/12/2014 - OA (osteoarthrosis) 05/18/2021 - Post-menopausal - Situational depression 04/19/2020 - Smoker 08/12/2013 Started at the age of 11 up to 1.5 PPD - Spastic bladder 10/23/2018 - Varicose veins of bilateral lower extremities with other complications 04/19/2020 bleeding at times - Vitamin B12 deficiency 10/25/2020 - Vitamin D deficiency - Well adult exam 04/17/2016 last done: 04/19/20 PAST SURGICAL HISTORY: PAST SURGICAL HISTORY Procedure Laterality Date - 48 HOUR PH STUDY 09/13/2021 Demeester score-28.6; Dr. Gresham - EGD TRANSORAL BIOPSY SINGLE/MULTIPLE 05/27/2016 - EGD WITH BIOPSY(S) 09/13/2021 Dr. Gresham - ESOPHAGOGASTRODUODENOSCOPY TRANSORAL DIAGNOSTIC 03/16/2020 - OFFICE LEEP 2001 - TOTAL ABDOMINAL HYSTERECT W/WO RMVL TUBE OVARY Bilateral 2002 bso FAMILY HISTORY: FAMILY HISTORY Problem Relation Age of Onset - COPD Mother - Heart Mother - Thyroid Mother - Hypertension Mother - Kidney Disease Mother Kidney failure - Asthma Mother - Breast Cancer Mother - Thyroid Daughter - Seizures Brother - Diabetes Son Type 1 - Hypertension Son - Asthma Son - Coronary Artery Disease Maternal Grandmother - Alzheimer's Disease Paternal Uncle - Prostate Cancer Paternal Uncle - Ovarian cancer No Family History - Colon Cancer No Family History - Hyperlipidemia No Family History - Stroke No Family History SOCIA (more content not included)... [facility] 05-16-2022 History of Present illness Narrative SURGICAL SERVICES HISTORY AND PHYSICAL EXAMINATION SERVICE DATE: 05/16/2022 SERVICE TIME: 11:37 AM PRIMARY CARE PHYSICIAN: Fortino Logan MD SUBJECTIVE CHIEF COMPLAINT: reflux HISTORY OF PRESENT ILLNESS: Ms. Villalobos is a 52 year old female with a PMH of hypothyroidism (synthroid), COPD with asthma (well-controlled; rare use of rescue inhalor), HLD, endometriosis (s/p JEFFREY), spastic bladder, tobacco abuse, and GERD with esophagitis who presents for follow up after GERD evaluation. I last saw her in clinic on 10/02/21 at which time she stated medical management was not working for her and she wished to pursue surgical intervention. However, she was still smoking at that time and we discussed the need for smoking cessation prior to this visit. I had ordered a nicotine test, but that has not yet been completed. At the last visit she had cut down to 1/2 ppd. Today she reports she is down to 5 cigarettes. She tried using CBD gummies to help her stop smoking, but these made her GERD symptoms worse. She believes her symptoms of GERD are slowly worsening. Symptoms are not worse at any particular time of the day. She also tried vinegar pills, which did not help. Per my previous notes: Work-up: - UGI: moderate volume of reflux to the mid esophageal level - EGD: patulous GE junction with Hill grade 2 GEJ - Path: Mild chronic gastritis. The Helicobacter pylori pattern of inflammation is not identified - Rodriguez: DeMeester 28.6; 100% SAP for regurgitation Please see my past clinic note from 08/07/21 for her full history: She endorses a long history of GERD symptoms which began back prior to 2015. She has been on Nexium since that time. Then in April she experienced worsening of GERD after starting Cataflam in April. Since then her symptoms have worsened drastically and she was started on Carafate. She stopping the Cataflam, but symptoms have continued. She is now on high dose Nexium of 40 mg BID and continues with severe nocturnal and day time symptoms. She denies dysphagia. She denies unexplained weight loss. She does endorse cough, which she believes is associated with her history of COPD and asthma. Once per week she experience severe acid regurgitation. She also has epigastric soreness and LUQ pain. Workup: - EGD (03/13/2020): no abnormalities. - EGD (05/2016): gastritis, non-severe reflux esophagitis - Pathology WNL Social: smokes 1 ppd since the age of of 11 (38 years); denies use of etoh or marijuana or other drug use. She works in [employer] - and is very active at work PSHx: JEFFREY (open) PAST MEDICAL HISTORY: PAST MEDICAL HISTORY Diagnosis Date Acquired hypothyroidism 04/25/2015 US 10/2017 showed enlarged right lobe but no nodules Allergic rhinitis 09/03/2013 ALEXYS III (cervical intraepithelial neoplasia grade III) with severe dysplasia Constipation 08/23/2015 COPD with asthma (HCC) Dyslipidemia 04/22/2018 Elevated fasting blood sugar 04/18/2017 Endometriosis, site unspecified Endometriosis MURIEL (generalized anxiety disorder) 05/18/2021 Gastric hyperplasia 10/18/2016 Gastro-esophageal reflux disease with esophagitis 10/18/2016 Patient with EGD proven esophagitis and gastric hyperplasia. Has been on omeprazole, pantoprazole and prevacid with no relief of symptoms. Nexium has been helpful and dexalant Insomnia 04/12/2014 OA (osteoarthrosis) 05/18/2021 Post-menopausal Situational depression 04/19/2020 Smoker 08/12/2013 Started at the age of 11 up to 1.5 PPD Spastic bladder 10/23/2018 Varicose veins of bilateral lower extremities with other complications 04/19/2020 bleeding at times Vitamin B12 deficiency 10/25/2020 Vitamin D deficiency Well adult exam 04/17/2016 last done: 04/19/20 PAST SURGICAL HISTORY: PAST SURGICAL HISTORY Procedure Laterality Date 48 HOUR PH STUDY 09/13/2021 Demeester score-28.6; Dr. Gresham EGD TRANSORAL BIOPSY SINGLE/MULTIPLE 05/27/2016 EGD WITH BIOPSY(S) 09/13/2021 Dr. Gresham ESOPHAGOGASTRODUODENOSCOPY TRANSORAL DIAGNOSTIC 03/16/2020 OFFICE LEEP 2002 TOTAL ABDOMINAL HYSTERECT W/WO RMVL TUBE OVARY Bilateral 2002 bso FAMILY HISTORY: FAMILY HISTORY Problem Relation Age of Onset COPD Mother Heart Mother Thyroid Mother Hypertension Mother Kidney Disease Mother Kidney failure Asthma Mother Breast Cancer Mother Thyroid Daughter Seizures Brother Diabetes Son Type 1 Hypertension Son Asthma Son Coronary Artery Disease Maternal Grandmother Alzheimer's Disease Paternal Uncle Prostate Cancer Paternal Uncle Ovarian cancer No Family History Colon Cancer No Family History Hyperlipidemia No Family History Stroke No Family History SOCIAL HISTORY: Social History Tobacco Use Smoking status: Current Every Day Smoker Packs/day: 0.50 Years: 40.00 Pack years: 20.00 Types: Cigarettes Start date: 1981 Smokeless tobacco: Never Used Tobacco comment: Both parents smoked in childhood home. 1st AM cigarette within 5 minutes of waking up. 01/30/16. TO Vaping Use Vaping Use: Never used Substance Use Topics Alcohol use: No Drug use: No MEDICATIONS: Current Outpatient Medications Medication Sig cyclobenzaprine (FLEXERIL) 5 mg tablet Take 1 tablet by mouth twice daily as needed. levothyroxine (SYNTHROID) 88 mcg tablet Take one tab by mouth daily. albuterol (PROVENTIL) 2.5 mg /3 mL (0.083 %) nebulizer solution Use 3 mL via nebulizer every 6 hours as needed for wheezing/shortness of breath. Use over 5-15minutes. albuterol HFA (PROAIR HFA) 90 mcg/actuation inhaler USE 2 INHALATIONS EVERY 6 HOURS INSTRUCTED NEEDED esomeprazole (NEXIUM) 40 mg capsule Take 1 capsule by mouth twice daily before meals. fluticasone-salmeterol HFA (ADVAIR HFA) 230-21 mcg/actuation inhaler Inhale 2 Puffs as instructed twice daily. hydrOXYzine HCl (ATARAX) 25 mg tablet Take 1-2 tabs by mouth prior to bed as needed for sleep. tiotropium (SPIRIVA WITH HANDIHALER) 18 mcg inhalation capsule INHALE THE CONTENTS OF 1 CAPSULE DAILY INSTRUCTED. USE WITH HANDIHALER senna (SENOKOT) 8.6 mg tab Take 1 tablet by mouth twice daily. FLUoxetine HCl (PROZAC) 40 mg capsule Take 1 capsule by mouth twice daily. diclofenac potassium (CATAFLAM) 50 mg tablet Take 1 tablet by mouth three times daily. Take with food. fluticasone (FLONASE) 50 mcg/actuation nasal spray Use 2 Sprays in each nostril once daily. Rinse mouth after use. Cholecalciferol, Vitamin D3, 50 mcg (2,000 unit) cap Take 1 capsule by mouth once daily. ergocalciferol, vitamin D2, (VITAMIN D2 ORAL) Take by mouth. levothyroxine (SYNTHROID) 88 mcg tablet Take one tab by mouth daily. (Patient not taking: Reported on 05/16/2022 ) cyanocobalamin (VITAMIN B-12) 1,000 mcg tab Take 1 tablet by mouth once daily. (Patient not taking: Reported on 05/16/2022 ) No current facility-administered medications for this visit. ALLERGIES: ALLERGIES Allergen Reactions Medrol Dose Pack [M* Swelling Swelling of throat Bactrim [Sulfametho* Itching Morphine Itching Zoloft [Sertraline] Other: See Comments Chest felt heavy. COMPLETE REVIEW OF SYSTEMS: Review of Systems Constitutional: Negative for chills, diaphoresis, fever and malaise/fatigue. HENT: Negative for congestion, hearing loss, nosebleeds, sinus pain, sore throat and tinnitus. Eyes: Negative for blurred vision, double vision, pain and redness. Respiratory: Positive for cough. Negative for hemoptysis, sputum production, shortness of breath and wheezing. Cardiovascular: Negative for chest pain, palpitations, orthopnea, leg swelling and PND. Gastrointestinal: Positive for abdominal pain, heartburn and nausea. Negative for blood in stool, constipation, diarrhea and vomiting. Genitourinary: Negative for dysuria, frequency, hematuria and urgency. Musculoskeletal: Negative for back pain, falls, joint pain, myalgias and neck pain. Skin: Negative for itching and rash. Neurological: Negative for dizziness, speech change, focal weakness, seizures, loss of consciousness, weakness and headaches. Endo/Heme/Allergies: Does not bruise/bleed easily. Psychiatric/Behavioral: Negative for depression, hallucinations, memory loss, substance abuse and suicidal ideas. The patient is not nervous/anxious and does not have insomnia. OBJECTIVE PHYSICAL EXAM: Pulse 93 Ht 5' 2 (1.58m) Wt 145 lb (65.8kg) BMI 26.51 kg/(m^2). Physical Exam Vitals reviewed. Constitutional: Appearance: Normal appearance. She is normal weight. HENT: Head: Normocephalic and atraumatic. Eyes: General: No scleral icterus. Extraocular Movements: Extraocular movements intact. Conjunctiva/sclera: Conjunctivae normal. Pupils: Pupils are equal, round, and reactive to light. Cardiovascular: Rate and Rhythm: Normal rate. Pulmonary: Effort: Pulmonary effort is normal. No respiratory distress. Skin: Coloration: Skin is not jaundiced or pale. Neurological: Mental Status: She is alert and oriented to person, place, and time. Psychiatric: Mood and Affect: Mood normal. Behavior: Behavior normal. DATA: Diagnostic tests reviewed for today's visit: EMR reviewed Plan ASSESSMENT AND PLAN Brenda Villalobos is a 52 year old female with a PMH as noted above who presents with continued medically refractory GERD. 1. Gastroesophageal reflux disease without esophagitis - ICD9: 530.81, ICD10: K21.9 (primary diagnosis) - Discussed lifestyle modifications including losing weight, limiting caffeine, no meals three hours before sleep and head of bed elevation - We discussed medically refractory GERD. She is currently taking Nexium 40 mg twice daily with continued breakthrough symptoms. We discussed lifestyle changes, which she is doing aside from the continued nicotine use. I have added once daily PRN Pepcid as well to see if this helps with the break through symptoms. - Will see her back in clinic after we have a negative nicotine test 2. Tobacco abuse - ICD9: 305.1, ICD10: Z72.0 - She continues to smoke 5 cigarettes daily. She is meeting with PCP to discuss medical assistance. She has not called the [phone] number I had given her last time, but states she will. - She knows she will need a negative nicotine test prior to surgery - Cessation encouraged. - Physiologic and physical aspects of tobacco addiction as well as strategies for quitting were discussed. - Counseling was given focusing on the harmful effects of this addiction especially given the patient's medical condition(s) which will be worsened because of the chemicals in tobacco. - NICOTINE & METAB, UR 3. Chronic obstructive pulmonary disease, unspecified COPD type (HCC) - ICD9: 496, ICD10: J44.9 - Stable. Continue current medical mangement Medical Decision Making: Problems: Moderate: 2+ stable chronic illnesses Data: Unique source(s) for external note(s) reviewed: 1 Unique test result(s) reviewed: 3+ Discussed management or test w/ external physician/QHCP/source Risk: Moderate: Drug management Medical Decision Making Level: 4 - Moderate SIGNATURE: Alexia Gresham MD PATIENT NAME: Brenda Villalobos DATE: May 16, 2022 TIME: 11:37 AM PAGER/CONTACT #: [id number] documented in this encounter [facility] 04-26-2022 Instructions Fortino Meier APRN.RN RECRUITMENT - 04/26/2022 12:47 PM EDT EMERGENCY DEPARTMENT LOW BACK PAIN GENERAL INFORMATION: Low back pain is located in the small of the back. The pain may be related to sprained muscles or ligaments, to muscle spasms, or to herniation of a spinal disc. There are many possible causes of back pain, but the most common causes are gradual wear and tear, physical and emotional stress, and weak or tense muscles from lack of proper exercise. The pain can develop quickly or overnight and may be caused by unusual exertion such as moving furniture or heavy lifting. Low back pain can be severe, and sometimes you may be unable to move without pain. INSTRUCTIONS: 1. During the first 24 hours, apply ice packs to your back for 10-20 minutes 3 to 4 times a day. Put the ice in a plastic bag and place a towel between the bag of ice and your skin. After 24 hours, apply heat to your back with a heating pad set on low or a warm water bottle for 30 minutes every 3 to 4 hours. A gentle massage and warm showers may also be helpful. 2. Stay in bed for 1 to 2 days. Then begin normal activities as you can tolerate without causing pain. 3. Bend at the hips and knees; never bend from the waist only. Lift with your legs, not your back. 4. Sleep on a firm mattress or put a to 1 inch piece of plywood between the mattress and box springs. Do not use a waterbed because it does not support your back correctly. Sleep with a pillow under your knees or sleep on your side with your knees bent. 5. Wear low-heeled shoes. 6. If you are overweight, losing weight will help prevent another attack. 7. Begin a program of back exercises to prevent future episodes of pain. Walking, swimming, and bicycling are good exercise. Avoid exercises that put stress on the back, such as rowing and jogging. CONTACT YOUR DOCTOR OR RETURN TO THE ED IF: 1. You have shooting pains into your buttocks, groin, or legs. 2. You have difficulty urinating or lose control of bowel or bladder function. 3. You have numbness or weakness in your legs or feet. documented in this encounter [facility] 04-26-2022 History of Present illness Narrative Images from the original note were not included. Subjective HPI Nontoxic-appearing female presents urgent care chief complaint lower back pain. Duration of symptoms lower left back pain. Patient states she was moving some boxes yesterday when she felt something pull in her lower left back. History of back injuries to this location this is similar. Denies any traumatic injuries. Has been using Motrin this has helped with pain management. When discussed pain scale with patient. Patient states pain is 7 out of 10. Denies any fever body aches chills nausea vomiting abdominal pain change in bowel or bladder habits. No incontinence no saddle anesthesia no numbness no tingling. No rashes. Past medical history prescription medication use allergies reviewed. .Patient presents with: Pain, Back: Pt reported lifting boxes, x1 day prior at home lower back pain rated 10 PAST MEDICAL HISTORY Diagnosis Date Acquired hypothyroidism 04/25/2015 US 10/2017 showed enlarged right lobe but no nodules Allergic rhinitis 09/03/2013 ALEXYS III (cervical intraepithelial neoplasia grade III) with severe dysplasia Constipation 08/23/2015 COPD with asthma (HCC) Dyslipidemia 04/22/2018 Elevated fasting blood sugar 04/18/2017 Endometriosis, site unspecified Endometriosis MURIEL (generalized anxiety disorder) 05/18/2021 Gastric hyperplasia 10/18/2016 Gastro-esophageal reflux disease with esophagitis 10/18/2016 Patient with EGD proven esophagitis and gastric hyperplasia. Has been on omeprazole, pantoprazole and prevacid with no relief of symptoms. Nexium has been helpful and dexalant Insomnia 04/12/2014 OA (osteoarthrosis) 05/18/2021 Post-menopausal Situational depression 04/19/2020 Smoker 08/12/2013 Started at the age of 11 up to 1.5 PPD Spastic bladder 10/23/2018 Varicose veins of bilateral lower extremities with other complications 04/19/2020 bleeding at times Vitamin B12 deficiency 10/25/2020 Vitamin D deficiency Well adult exam 04/17/2016 last done: 04/19/20 PAST SURGICAL HISTORY Procedure Laterality Date 48 HOUR PH STUDY 09/13/2021 Demeester score-28.6; Dr. Gresham EGD TRANSORAL BIOPSY SINGLE/MULTIPLE 05/27/2016 EGD WITH BIOPSY(S) 09/13/2021 Dr. Gresham ESOPHAGOGASTRODUODENOSCOPY TRANSORAL DIAGNOSTIC 03/16/2020 OFFICE LEEP 2001 TOTAL ABDOMINAL HYSTERECT W/WO RMVL TUBE OVARY Bilateral 2002 bso ALLERGIES Medrol Dose Pack [Methylprednisolone], Bactrim [Sulfamethoxazole], Morphine, and Zoloft [Sertraline] MEDICATIONS levothyroxine (SYNTHROID) 88 mcg tablet Take one tab by mouth daily. levothyroxine (SYNTHROID) 88 mcg tablet Take one tab by mouth daily. albuterol (PROVENTIL) 2.5 mg /3 mL (0.083 %) nebulizer solution Use 3 mL via nebulizer every 6 hours as needed for wheezing/shortness of breath. Use over 5-15minutes. albuterol HFA (PROAIR HFA) 90 mcg/actuation inhaler USE 2 INHALATIONS EVERY 6 HOURS INSTRUCTED NEEDED esomeprazole (NEXIUM) 40 mg capsule Take 1 capsule by mouth twice daily before meals. hydrOXYzine HCl (ATARAX) 25 mg tablet Take 1-2 tabs by mouth prior to bed as needed for sleep. tiotropium (SPIRIVA WITH HANDIHALER) 18 mcg inhalation capsule INHALE THE CONTENTS OF 1 CAPSULE DAILY INSTRUCTED. USE WITH HANDIHALER senna (SENOKOT) 8.6 mg tab Take 1 tablet by mouth twice daily. FLUoxetine HCl (PROZAC) 40 mg capsule Take 1 capsule by mouth twice daily. diclofenac potassium (CATAFLAM) 50 mg tablet Take 1 tablet by mouth three times daily. Take with food. fluticasone (FLONASE) 50 mcg/actuation nasal spray Use 2 Sprays in each nostril once daily. Rinse mouth after use. Cholecalciferol, Vitamin D3, 50 mcg (2,000 unit) cap Take 1 capsule by mouth once daily. ergocalciferol, vitamin D2, (VITAMIN D2 ORAL) Take by mouth. fluticasone-salmeterol HFA (ADVAIR HFA) 230-21 mcg/actuation inhaler Inhale 2 Puffs as instructed twice daily. cyclobenzaprine (FLEXERIL) 5 mg tablet Take 1 tablet by mouth three times daily. cyanocobalamin (VITAMIN B-12) 1,000 mcg tab Take 1 tablet by mouth once daily. FAMILY HISTORY Problem Relation Age of Onset COPD Mother Heart Mother Thyroid Mother Hypertension Mother Kidney Disease Mother Kidney failure Asthma Mother Breast Cancer Mother Thyroid Daughter Seizures Brother Diabetes Son Type 1 Hypertension Son Asthma Son Coronary Artery Disease Maternal Grandmother Alzheimer's Disease Paternal Uncle Prostate Cancer Paternal Uncle Ovarian cancer No Family History Colon Cancer No Family History Hyperlipidemia No Family History Stroke No Family History Social History Tobacco Use Smoking status: Current Every Day Smoker Packs/day: 0.50 Years: 40.00 Pack years: 20.00 Types: Cigarettes Start date: 1981 Smokeless tobacco: Never Used Tobacco comment: Both parents smoked in childhood home. 1st AM cigarette within 5 minutes of waking up. 01/30/16. TO Vaping Use Vaping Use: Never used Substance Use Topics Alcohol use: No Drug use: No BP 132/80 Pulse 99 Temp 37.5 C (99.5 F) Resp 20 Wt 66.2 kg (146 lb) SpO2 97% BMI 26.70 kg/m Review of Systems Constitutional: Negative for chills, fever and malaise/fatigue. HENT: Negative for congestion, ear discharge, ear pain, sinus pain and sore throat. Eyes: Negative for blurred vision, pain, discharge and redness. Respiratory: Negative for cough, hemoptysis, sputum production, shortness of breath, wheezing and stridor. Cardiovascular: Negative for chest pain. Gastrointestinal: Negative for abdominal pain, diarrhea, nausea and vomiting. Musculoskeletal: Positive for back pain. Negative for falls, joint pain, myalgias and neck pain. Skin: Negative for itching and rash. Neurological: Negative for dizziness and headaches. Objective Physical Exam Constitutional: General: She is not in acute distress. Appearance: She is not diaphoretic. HENT: Head: Normocephalic. Mouth/Throat: Mouth: Mucous membranes are moist. Pharynx: Oropharynx is clear. No oropharyngeal exudate or posterior oropharyngeal erythema. Eyes: Conjunctiva/sclera: Conjunctivae normal. Pupils: Pupils are equal, round, and reactive to light. Cardiovascular: Rate and Rhythm: Normal rate and regular rhythm. Heart sounds: Normal heart sounds. Pulmonary: Effort: Pulmonary effort is normal. No tachypnea, accessory muscle usage or respiratory distress. Breath sounds: Normal breath sounds. No stridor. No wheezing, rhonchi or rales. Abdominal: Palpations: Abdomen is soft. Tenderness: There is no abdominal tenderness. There is no right CVA tenderness, left CVA tenderness, guarding or rebound. Musculoskeletal: Cervical back: Normal range of motion and neck supple. No edema, deformity, erythema, rigidity, spasms, tenderness or bony tenderness. No pain with movement. Normal range of motion. Thoracic back: Normal. Lumbar back: Tenderness present. No swelling, edema, deformity, signs of trauma, lacerations, spasms or bony tenderness. Decreased range of motion. Negative right straight leg raise test and negative left straight leg raise test. Back: Comments: Able to rock on heels stand on toes. Able to find comfortable position. No rashes. No erythema. No edema. No spinal tenderness. Lymphadenopathy: Cervical: No cervical adenopathy. Skin: General: Skin is warm and dry. Neurological: Mental Status: She is alert and oriented to person, place, and time. ASSESSMENT/PLAN: 1. Chronic bilateral low back pain without sciatica - ICD9: 724.2, 338.29, ICD10: M54.50, G89.29 - CYCLOBENZAPRINE 5 MG TABLET 2. Pain in both lower extremities - ICD9: 729.5, ICD10: M79.604, M79.605 Patient diagnosed with lower back pain. Will continue using Tylenol Motrin as needed for pain management muscle relaxers prescribed as needed. No operating machinery or work or driving while taking muscle relaxers. Patient was educated on supportive therapies. Patient will follow up with primary care provider as needed. Patient was instructed to immediately proceed to emergency room for any new, worsening, or symptoms lasting longer than anticipated. The patient's clinical presentation is otherwise unremarkable at this time. Based on exam and clinical finding, the patient is stable for discharge. Plan of care was discussed with patient. Patient verbalizes understanding and agrees to plan of care. This note was generated using [employer] software. It may contain errors in wording, punctuation, or spelling. - CYCLOBENZAPRINE 5 MG TABLET Fortino Meier APRN.CNP documented in this encounter [facility] 03-29-2022 Miscellaneous Notes The following approved medication requests have been transmitted electronically. Signed Prescriptions Disp Refills levothyroxine (SYNTHROID) 88 mcg tablet 90 tablet 1 Sig: Take one tab by mouth daily. VANESSA: No Authorizing Provider: FORTINO LOGAN MD Patient has been identified by name and date of : Yes Patient phones for refill(s): Pending Prescriptions Disp Refills LEVOTHYROXINE 88 MCG TABLET 90 tablet 1 Sig: Take one tab by mouth daily. VANESSA: No Date of last office visit in primary care: 11/23/21 Last 2 Encounter Wt Readings: Date: Wt: 11/23/2021 65.8 kg (145 lb) 10/18/2021 66.7 kg (147 lb) Previous labs/tests for medication: Not applicable Please advise. Thank you. Nanette Sahu LPN documented in this encounter [facility] 02-21-2022 Miscellaneous Notes I called patient and left a message asking whether patient had quit smoking and completed her urine nicotine test. I requested a call back and left my contact information. Shanae Nguyen RN documented in this encounter [facility] 10-02-2021 Note HNO ID: [id number] Author: Alexia Gresham MD Service: ? Author Type: Physician Type: Progress Notes Filed: 10/02/2021 3:05 PM Note Text: SURGICAL SERVICES HISTORY AND PHYSICAL EXAMINATION SERVICE DATE: 10/02/2021 SERVICE TIME: 2:44 PM PRIMARY CARE PHYSICIAN: Fortino Logan MD SUBJECTIVE CHIEF COMPLAINT: reflux HISTORY OF PRESENT ILLNESS: Ms. Villalobos is a 51 year old female with a PMH of hypothyroidism (synthroid), COPD with asthma (well-controlled; rare use of rescue inhalor), HLD, endometriosis (s/p JEFFREY), spastic bladder, and GERD with esophagitis who presents for follow up after recent evaluation of GERD. Today Brenda endorses no change in her health or medications. She continues with severe reflux symptoms. She has cut down to 1/2 pack per day of smoking. She has made dietary modifications and is not eating past 5 pm. Work-up: - UGI: moderate volume of reflux to the mid esophageal level - EGD: patulous GE junction with Hill grade 2 GEJ - Path: Mild chronic gastritis. The Helicobacter pylori pattern of inflammation is not identified - Rodriguez: DeMeester 28.6; 100% SAP for regurgitation Please see my past clinic note from 08/07/21 for her full history: She endorses a long history of GERD symptoms which began back prior to 2015. She has been on Nexium since that time. Then in April she experienced worsening of GERD after starting Cataflam in April. Since then her symptoms have worsened drastically and she was started on Carafate. She stopping the Cataflam, but symptoms have continued. She is now on high dose Nexium of 40 mg BID and continues with severe nocturnal and day time symptoms. She denies dysphagia. She denies unexplained weight loss. She does endorse cough, which she believes is associated with her history of COPD and asthma. Once per week she experience severe acid regurgitation. She also has epigastric soreness and LUQ pain. ? Workup: - EGD (03/13/2020): no abnormalities. - EGD (05/2016): gastritis, non-severe reflux esophagitis - Pathology WNL ? Social: smokes 1 ppd since the age of of 11 (40 years); denies use of etoh or marijuana or other drug use. She works in [employer] - and is very active at work ? PSHx: JEFFREY (open) PAST MEDICAL HISTORY: PAST MEDICAL HISTORY Diagnosis Date - Acquired hypothyroidism 04/25/2015 US 10/2017 showed enlarged right lobe but no nodules - Allergic rhinitis 09/03/2013 - ALEXYS III (cervical intraepithelial neoplasia grade III) with severe dysplasia - Constipation 08/23/2015 - COPD with asthma (HCC) - Dyslipidemia 04/22/2018 - Elevated fasting blood sugar 04/18/2017 - Endometriosis, site unspecified Endometriosis - MURIEL (generalized anxiety disorder) 05/18/2021 - Gastric hyperplasia 10/18/2016 - Gastro-esophageal reflux disease with esophagitis 10/18/2016 Patient with EGD proven esophagitis and gastric hyperplasia. Has been on omeprazole, pantoprazole and prevacid with no relief of symptoms. Nexium has been helpful and dexalant - Insomnia 04/12/2014 - Post-menopausal - Situational depression 04/19/2020 - Smoker 08/12/2013 Started at the age of 11 up to 1.5 PPD - Spastic bladder 10/23/2018 - Varicose veins of bilateral lower extremities with other complications 04/19/2020 bleeding at times - Vitamin B12 deficiency 10/25/2020 - Vitamin D deficiency - Well adult exam 04/17/2016 last done: 04/19/20 PAST SURGICAL HISTORY: PAST SURGICAL HISTORY Procedure Laterality Date - 48 HOUR PH STUDY 09/13/2021 Demeester score-28.6; Dr. Gresham - EGD W/O BRSH SPECIMEN W/BX 05/27/2016 - EGD W/O OR W/BRUSH/WASH 03/16/2020 - EGD WITH BIOPSY(S) 09/13/2021 Dr. Gresham - OFFICE LEEP 2001 - TOTAL ABDOM HYSTERECTOMY Bilateral 2002 bso FAMILY HISTORY: FAMILY HISTORY Problem Relation Age of Onset - COPD Mother - Heart Mother - Thyroid Mother - Hypertension Mother - Kidney Disease Mother Kidney failure - Asthma Mother - Breast Cancer Mother - Thyroid Daughter - Seizures Brother - Diabetes Son Type 1 - Hypertension Son - Asthma Son - Coronary Artery Disease Maternal Grandmother - Alzheimer's Disease Paternal Uncle - Prostate Cancer Paternal Uncle - Ovarian cancer No Family History - Colon Cancer No Family History - Hyperlipidemia No Family History - Stroke No Family History SOCIAL HISTORY: Social History Tobacco Use - Smoking status: Current Every Day Smoker Packs/day: 0.50 Years: 40.00 Pack years: 20.00 Types: Cigarettes Start date: 1981 - Smokeless tobacco: Never Used - Tobacco comment: Both parents smoked in childhood home. 1st AM cigarette within 5 minutes of waking up. 01/30/16. TO Vaping Use - Vaping Use: Never used Substance Use Topics - Alcohol use: No - Drug use: No MEDICATIONS: Current Outpatient Medications Medication Sig - sucralfate (CARAFATE) 1 gram tablet Take one tab before lunch and before bed. - FLUoxeti (more content not included)... [facility] 08-20-2021 History of Present illness Narrative Radiology Service Progress Note PATIENT NAME: Brenda Villalobos DATE OF SERVICE: August 20, 2021 TIME: 11:58 AM PATIENT IDENTITY VERIFICATION COMPLETED USING TWO (2) IDENTIFIERS: Name and Date of confirmed by patient verbally. FALL SCREENING: Has the patient had 2 falls in the last year or 1 fall with injury or currently using an Ambulatory Assistive Device (Walker, Cane, Wheelchair, Crutches, etc.)? No PATIENT GENDER DATA: Male PATIENT RELEVANT IMPLANT DATA REVIEWED: Not Applicable RADIOLOGY DEPARTMENT: General X-ray: Exam(s) Completed: Lower Extremity X-Ray(s): Foot, Right and Wt. Bearing PERIPHERAL IV DATA: Not applicable SIGNED BY: RT Ary(R) August 20, 2021 11:58 AM documented in this encounter [facility] 08-07-2021 Note HNO ID: [id number] Author: Shanae Nguyen RN Service: ? Author Type: Nurse Clinician Type: Progress Notes Filed: 08/07/2021 10:54 AM Note Text: Patient given written information about upper GI x-ray and the prep instructions. I verbally discussed and reviewed the information with the patient. All of patient's questions were answered. Patient given written information about and EGD and biopsy and the prep instructions. I verbally discussed and reviewed the information with the patient. All of patient's questions were answered. Patient given written information about Rodriguez pH probe and the prep instructions. Verbally discussed and reviewed the information with the patient. All of patient's questions were answered. Shanae Nguyen RN [facility] 08-07-2021 Note HNO ID: [id number] Author: Alexia Gresham MD Service: ? Author Type: Physician Type: Progress Notes Filed: 08/07/2021 10:39 AM Note Text: SURGICAL SERVICES HISTORY AND PHYSICAL EXAMINATION SERVICE DATE: 08/07/2021 SERVICE TIME: 10:13 AM PRIMARY CARE PHYSICIAN: Fortino Logan MD SUBJECTIVE CHIEF COMPLAINT: GERD HISTORY OF PRESENT ILLNESS: Ms. Villalobos is a 51 year old female with a PMH of hypothyroidism (synthroid), COPD with asthma (well-controlled; rare use of rescue inhalor), HLD, endometriosis (s/p JEFFREY), spastic bladder, and GERD with esophagitis who presents for evaluation of GERD. She endorses a long history of GERD symptoms which began back prior to 2015. She has been on Nexium since that time. Then in April she experienced worsening of GERD after starting Cataflam in April. Since then her symptoms have worsened drastically and she was started on Carafate. She stopping the Cataflam, but symptoms have continued. She is now on high dose Nexium of 40 mg BID and continues with severe nocturnal and day time symptoms. She denies dysphagia. She denies unexplained weight loss. She does endorse cough, which she believes is associated with her history of COPD and asthma. Once per week she experience severe acid regurgitation. She also has epigastric soreness and LUQ pain. Workup: - EGD (03/13/2020): no abnormalities. - EGD (05/2016): gastritis, non-severe reflux esophagitis - Pathology WNL Social: smokes 1 ppd since the age of of 11 (40 years); denies use of etoh or marijuana or other drug use. She works in [employer] - and is very active at work PSHx: JEFFREY (open) PAST MEDICAL HISTORY: PAST MEDICAL HISTORY Diagnosis Date - Acquired hypothyroidism 04/25/2015 US 10/2017 showed enlarged right lobe but no nodules - Allergic rhinitis 09/03/2013 - ALEXYS III (cervical intraepithelial neoplasia grade III) with severe dysplasia - Constipation 08/23/2015 - COPD with asthma (HCC) - Dyslipidemia 04/22/2018 - Elevated fasting blood sugar 04/18/2017 - Endometriosis, site unspecified Endometriosis - MURIEL (generalized anxiety disorder) 05/18/2021 - Gastric hyperplasia 10/18/2016 - Gastro-esophageal reflux disease with esophagitis 10/18/2016 Patient with EGD proven esophagitis and gastric hyperplasia. Has been on omeprazole, pantoprazole and prevacid with no relief of symptoms. Nexium has been helpful and dexalant - Insomnia 04/12/2014 - Post-menopausal - Situational depression 04/19/2020 - Smoker 08/12/2013 - Smoker 08/12/2013 Started at the age of 11 up to 1.5 PPD - Spastic bladder 10/23/2018 - Spastic bladder 10/23/2018 - Varicose veins of bilateral lower extremities with other complications 04/19/2020 bleeding at times - Vitamin B12 deficiency 10/25/2020 - Vitamin D deficiency - Well adult exam 04/17/2016 last done: 04/19/20 PAST SURGICAL HISTORY: PAST SURGICAL HISTORY Procedure Laterality Date - EGD W/O BRSH SPECIMEN W/BX 05/27/2016 - EGD W/O OR W/BRUSH/WASH 03/16/2020 EGD - OFFICE LEEP 2001 - TOTAL ABDOM HYSTERECTOMY 2002 jeffrey bso FAMILY HISTORY: FAMILY HISTORY Problem Relation Age of Onset - COPD Mother - Heart Mother - Thyroid Mother - Hypertension Mother - Kidney Disease Mother Kidney failure - Asthma Mother - Breast Cancer Mother - Thyroid Daughter - Seizures Brother - Diabetes Son Type 1 - Hypertension Son - Asthma Son - Coronary Artery Disease Maternal Grandmother - Alzheimer's Disease Paternal Uncle - Prostate Cancer Paternal Uncle - Ovarian cancer No Family History - Colon Cancer No Family History - Hyperlipidemia No Family History - Stroke No Family History SOCIAL HISTORY: Social History Tobacco Use - Smoking status: Current Every Day Smoker Packs/day: 0.50 Years: 30.00 Pack years: 15.00 Types: Cigarettes Start date: 1981 - Smokeless tobacco: Never Used - Tobacco comment: Both parents smoked in childhood home. 1st AM cigarette within 5 minutes of waking up. 01/30/16. TO Substance Use Topics - Alcohol use: No - Drug use: No MEDICATIONS: Current Outpatient Medications Medication Sig - sucralfate (CARAFATE) 1 gram tablet Take one tab before lunch and before bed. - FLUoxetine HCl (PROZAC) 40 mg capsule Take 1 capsule by mouth twice daily. - diclofenac potassium (CATAFLAM) 50 mg tablet Take 1 tablet by mouth three times daily. Take with food. - fluticasone-salmeterol HFA (ADVAIR HFA) 230-21 mcg/actuation inhaler Inhale 2 Puffs as instructed twice daily. - levothyroxine (SYNTHROID) 88 mcg tablet Take one tab by mouth daily. - hydrOXYzine HCl (ATARAX) 25 mg tablet Take 1-2 tabs by mouth prior to bed as needed for sleep. - tiotropium (SPIRIVA WITH HANDIHALER) 18 mcg inhalation capsule INHALE THE CONTENTS OF 1 CAPSULE DAILY INSTRUCTED. USE WITH HANDIHALER - albuterol HFA (PROAIR HFA) 90 mcg/actuation inhaler USE 2 INHALATIONS EVERY 6 HOURS INSTRUCTED NEEDED - esomep (more content not included)... [facility] 04-07-2021 History of Present illness Narrative Radiology Service Progress Note PATIENT NAME: Brenda Villalobos DATE OF SERVICE: April 07, 2021 TIME: 10:46 AM PATIENT IDENTITY VERIFICATION COMPLETED USING TWO (2) IDENTIFIERS: Name and Date of confirmed by patient verbally. FALL SCREENING: Has the patient had 2 falls in the last year or 1 fall with injury or currently using an Ambulatory Assistive Device (Walker, Cane, Wheelchair, Crutches, etc.)? No PATIENT GENDER DATA: Female. status: : No status: NO. PATIENT RELEVANT IMPLANT DATA REVIEWED: Not Applicable RADIOLOGY DEPARTMENT: General X-ray: Exam(s) Completed: Chest X-Ray PERIPHERAL IV DATA: Not applicable SIGNED BY: RT Deja(R) April 07, 2021 10:46 AM documented in this encounter [facility] Evaluation note Diagnosis Acquired hypothyroidism Unspecified hypothyroidism [facility] Diagnosis Encounter for screening mammogram for breast cancer [facility] Diagnosis Chronic bilateral low back pain without sciatica Pain in both lower extremities [facility] Diagnosis Gastroesophageal reflux disease without esophagitis- Primary Esophageal reflux Tobacco abuse Tobacco use disorder Chronic obstructive pulmonary disease, unspecified COPD type (HCC) [facility] Diagnosis Dyslipidemia- Primary Other and unspecified hyperlipidemia Vitamin D deficiency Unspecified vitamin D deficiency Elevated fasting blood sugar Impaired fasting glucose Acquired hypothyroidism Unspecified hypothyroidism Vitamin B12 deficiency Other B-complex deficiencies Gastroesophageal reflux disease with esophagitis without hemorrhage Smoker Tobacco use disorder COPD with asthma (HCC) Chronic obstructive asthma, unspecified Medication management Encounter for long-term (current) use of other medications [facility] Diagnosis Acute left ankle pain- Primary Encounter for immunization- Primary Need for other specified prophylactic vaccination against single bacterial disease Encounter for screening for lung cancer [facility] Diagnosis Well adult exam- Primary Routine general medical examination at a health care facility Acquired hypothyroidism Unspecified hypothyroidism Dyslipidemia Other and unspecified hyperlipidemia Elevated fasting blood sugar Impaired fasting glucose COPD with asthma (HCC) Chronic obstructive asthma, unspecified Gastroesophageal reflux disease with esophagitis without hemorrhage MURIEL (generalized anxiety disorder) Generalized anxiety disorder Situational depression Adjustment disorder with depressed mood Allergic rhinitis, unspecified seasonality, unspecified trigger Primary insomnia Persistent disorder of initiating or maintaining sleep Vitamin B12 deficiency Other B-complex deficiencies Vitamin D deficiency Unspecified vitamin D deficiency Left leg pain Pain in limb Thyroid pain Other specified disorders of thyroid Elevated blood pressure reading without diagnosis of hypertension Smoker Tobacco use disorder Encounter for screening for lung cancer Screening for colon cancer Special screening for malignant neoplasms, colon Hypokalemia Hypopotassemia Thrombocytosis Essential thrombocythemia documented in this encounter [facility] noteNo assessment information [facility]WC[facility]* Diagnosis Thyroid pain Other specified disorders of thyroid documented in this encounter [facility] note* Diagnosis Acute pain of right shoulder- Primary [facility] Diagnosis Elevated blood pressure reading without diagnosis of hypertension- Primary documented in this encounter [facility] note* Diagnosis Acquired hypothyroidism Unspecified hypothyroidism Other constipation [facility]* Diagnosis Nausea- Primary Nausea alone Urinary frequency Gastroesophageal reflux disease with esophagitis without hemorrhage documented in this encounter [facility] note* Diagnosis Acquired hypothyroidism- Primary Unspecified hypothyroidism Dyslipidemia Other and unspecified hyperlipidemia Gastroesophageal reflux disease with esophagitis without hemorrhage Gastric hyperplasia Gastric mucosal hypertrophy without mention of hemorrhage Elevated fasting blood sugar Impaired fasting glucose Situational depression Adjustment disorder with depressed mood MURIEL (generalized anxiety disorder) Generalized anxiety disorder COPD with asthma (HCC) Chronic obstructive asthma, unspecified Vitamin D deficiency Unspecified vitamin D deficiency Smoker Tobacco use disorder Primary insomnia Persistent disorder of initiating or maintaining sleep Vitamin B12 deficiency Other B-complex deficiencies Medication management Encounter for long-term (current) use of other medications documented in this encounter [facility] note* Diagnosis Gastric hyperplasia- Primary Gastric mucosal hypertrophy without mention of hemorrhage Gastroesophageal reflux disease with esophagitis without hemorrhage documented in this encounter [facility] note* Diagnosis Urinary frequency- Primary documented in this encounter [facility] note* Diagnosis Onset Date Resolution Status GERD (gastroesophageal reflux disease) [facility] Work Phone: Evaluation note* Diagnosis Acquired hypothyroidism Unspecified hypothyroidism documented in this encounter [facility] note* Diagnosis Well adult exam- Primary Routine general medical examination at a health care facility Dyslipidemia Other and unspecified hyperlipidemia Elevated fasting blood sugar Impaired fasting glucose COPD with asthma (HCC) Chronic obstructive asthma, unspecified Acquired hypothyroidism Unspecified hypothyroidism Gastroesophageal reflux disease with esophagitis without hemorrhage MURIEL (generalized anxiety disorder) Generalized anxiety disorder Situational depression Adjustment disorder with depressed mood Primary insomnia Persistent disorder of initiating or maintaining sleep Smoker Tobacco use disorder Varicose veins of bilateral lower extremities with other complications Vitamin B12 deficiency Other B-complex deficiencies Vitamin D deficiency Unspecified vitamin D deficiency Other constipation OA (osteoarthrosis) Bilateral groin pain Abdominal pain, unspecified site Bilateral hip pain Pain in joint, pelvic region and thigh Encounter for screening for lung cancer Screening for colon cancer Special screening for malignant neoplasms, colon documented in this encounter [facility] note* Diagnosis Onset Date Resolution Status GERD (gastroesophageal reflux disease) chronic GERD (gastroesophageal reflux disease) [facility] Work Phone: Evaluation note* Diagnosis COPD with asthma- Primary Chronic obstructive asthma, unspecified documented in this encounter [facility] note* Diagnosis MURIEL (generalized anxiety disorder)- Primary Generalized anxiety disorder Situational depression Adjustment disorder with depressed mood Dyslipidemia Other and unspecified hyperlipidemia Acquired hypothyroidism Unspecified hypothyroidism Gastroesophageal reflux disease with esophagitis without hemorrhage Vitamin B12 deficiency Other B-complex deficiencies COPD with asthma (HCC) Chronic obstructive asthma, unspecified Vitamin D deficiency Unspecified vitamin D deficiency Smoker Tobacco use disorder Fatigue, unspecified type documented in this encounter [facility] note* Diagnosis Encounter for screening mammogram for breast cancer documented in this encounter [facility] note* Diagnosis Other constipation [facility] Diagnosis MURIEL (generalized anxiety disorder)- Primary Generalized anxiety disorder Acquired hypothyroidism Unspecified hypothyroidism Gastric hyperplasia Gastric mucosal hypertrophy without mention of hemorrhage Gastroesophageal reflux disease with esophagitis without hemorrhage [facility]* Diagnosis MURIEL (generalized anxiety disorder)- Primary Generalized anxiety disorder Situational depression Adjustment disorder with depressed mood Acquired hypothyroidism Unspecified hypothyroidism Epigastric pain Abdominal pain, epigastric [facility]* Diagnosis Bilateral groin pain Abdominal pain, unspecified site Bilateral hip pain Pain in joint, pelvic region and thigh [facility] Diagnosis Bacterial sinusitis- Primary Unspecified sinusitis (chronic) Suspected COVID-19 virus infection documented [facility] Diagnosis Acute left ankle pain [facility] Diagnosis Left leg pain Pain in limb [facility]* Diagnosis Foot pain, right Pain in limb documented in this encounter [facility] note* Diagnosis Persistent cough Cough COPD with asthma (HCC) Chronic obstructive asthma, unspecified [facility]* Diagnosis Well adult exam- Primary Routine general medical examination at a health care facility Acquired hypothyroidism Unspecified hypothyroidism Dyslipidemia Other and unspecified hyperlipidemia Elevated fasting blood sugar Impaired fasting glucose Gastroesophageal reflux disease with esophagitis without hemorrhage COPD with asthma (HCC) Chronic obstructive asthma, unspecified MURIEL (generalized anxiety disorder) Generalized anxiety disorder Situational depression Adjustment disorder with depressed mood Primary insomnia Persistent disorder of initiating or maintaining sleep Smoker Tobacco use disorder Vitamin B12 deficiency Other B-complex deficiencies Vitamin D deficiency Unspecified vitamin D deficiency Medication management Encounter for long-term (current) use of other medications Encounter for screening for diabetes mellitus Screening for diabetes mellitus Screening for colon cancer Special screening for malignant neoplasms, colon Elevated blood pressure reading without diagnosis of hypertension [facility] Diagnosis Elevated BP without diagnosis of hypertension- Primary documented [facility]* Diagnosis Gastroesophageal reflux disease with esophagitis without hemorrhage- Primary Gastric hyperplasia Gastric mucosal hypertrophy without mention of hemorrhage documented [facility] Diagnosis MURIEL (generalized anxiety disorder)- Primary Generalized anxiety disorder Situational depression Adjustment disorder with depressed mood documented [facility]* Diagnosis Gastroesophageal reflux disease with esophagitis without hemorrhage- Primary documented in this encounter [facility] Work Phone: Evaluation note* Diagnosis Low hemoglobin- Primary Anemia, unspecified documented [facility]* Diagnosis MURIEL (generalized anxiety disorder) Generalized anxiety disorder Situational depression Adjustment disorder with depressed mood documented in this encounter [facility] note* Diagnosis COPD with asthma (HCC)- Primary Chronic obstructive asthma, unspecified Acquired hypothyroidism Unspecified hypothyroidism documented [facility]* Diagnosis Skin infection- Primary Unspecified local infection of skin and subcutaneous tissue URI, acute Acute upper respiratory infections of unspecified site documented [facility] this [facility]* Diagnosis COPD with exacerbation (HCC)- Primary Obstructive chronic bronchitis with exacerbation [facility] Diagnosis Bacterial sinusitis- Primary Unspecified sinusitis (chronic) Abnormal breath sounds Abnormal chest sounds Abnormal breath sounds Abnormal chest sounds documented [facility] this [facility]* Diagnosis Abnormal breath sounds Abnormal chest sounds documented [facility] this [facility]* Diagnosis Dyslipidemia- Primary Other and unspecified hyperlipidemia Acquired hypothyroidism Unspecified hypothyroidism Elevated fasting blood sugar Impaired fasting glucose COPD with asthma (HCC) Chronic obstructive asthma, unspecified Gastroesophageal reflux disease with esophagitis without hemorrhage MURIEL (generalized anxiety disorder) Generalized anxiety disorder Situational depression Adjustment disorder with depressed mood Primary insomnia Persistent disorder of initiating or maintaining sleep Smoker Tobacco use disorder Vitamin B12 deficiency Other B-complex deficiencies Vitamin D deficiency Unspecified vitamin D deficiency Other constipation Anemia, unspecified type Mass of thyroid gland Hypersomnolence Hypersomnia, unspecified Snores Other dyspnea and respiratory abnormality Witnessed episode of apnea documented [facility] this [facility]* Diagnosis Mass of thyroid gland documented in this encounter [facility] note* Diagnosis Iron deficiency anemia, unspecified iron deficiency anemia type- Primary Acquired hypothyroidism Unspecified hypothyroidism documented in this [facility]* Diagnosis Gastroesophageal reflux disease without esophagitis- Primary Esophageal reflux documented in this encounter [facility] Work Phone: Evaluation note* Diagnosis MURIEL (generalized anxiety disorder)- Primary Generalized anxiety disorder Situational depression Adjustment disorder with depressed mood Headache, unspecified headache type Elevated blood pressure reading without diagnosis of hypertension Hyponatremia Hyposmolality and/or hyponatremia Acquired hypothyroidism Unspecified hypothyroidism documented [facility] Diagnosis Hyponatremia- Primary Hyposmolality and/or hyponatremia documented in this encounter [facility] note* Diagnosis Acute bilateral low back pain with bilateral sciatica- Primary COPD with asthma (HCC) Chronic obstructive asthma, unspecified documented [facility]* Diagnosis Acute bilateral low back pain with bilateral sciatica documented in this encounter [facility] note* Diagnosis Gastroesophageal reflux disease without esophagitis- Primary Esophageal reflux documented in this encounter [facility] Work Phone: Evaluation note* Diagnosis Acute bilateral low back pain with bilateral sciatica- Primary documented in this encounter [facility] note* Diagnosis Gastroesophageal reflux disease without esophagitis Esophageal reflux documented in this encounter [facility] Work Phone: Evaluation note* Diagnosis Acute bilateral low back pain with bilateral sciatica- Primary documented in this encounter [facility] note* Diagnosis Gastroesophageal reflux disease without esophagitis- Primary Esophageal reflux documented in this encounter [facility] Work Phone: Evaluation note* Diagnosis COPD with asthma (HCC)- Primary Chronic obstructive asthma, unspecified [facility]* Diagnosis Acute bilateral low back pain with bilateral sciatica- Primary documented [facility]* Diagnosis Acute bilateral low back pain with bilateral sciatica- Primary [facility]* Diagnosis Gastroesophageal reflux disease with esophagitis without hemorrhage- Primary documented in this encounter [facility] Work Phone: Evaluation note* Diagnosis Gastroesophageal reflux disease without esophagitis Esophageal reflux documented in this encounter [facility] Work Phone: Reason for referral (narrative)* Diagnostic Procedure Only (Routine) - Pending Review Specialty Diagnoses / Procedures Referred By Yuri salinas Referred To Contact BR IMAGING Diagnoses Encounter for screening mammogram for breast cancer Procedures KRANTHI SCREENING SCREENING MAMMOGRAPHY BI 2-VIEW BREAST INC CAD Fortino Logan MD [address] [place] [address] Br Imaging [address] [place] [address] Referral ID Status Reason Start Date Expiration Date Visits Requested Visits Authorized [id number] Pending Review Auto-Generat ed Referral 04/17/2022 05/17/2023 1 1 [facility] for referral (narrative)* Diagnostic Procedure Only (Routine) - Closed Specialty Diagnoses / Procedures Referred By Yuri salinas Referred To Contact XR IMAGING Diagnoses Acute left ankle pain Procedures XR ANKLE GENERAL 3V AP/LAT/OBL LEFT RADEX ANKLE COMPLETE MINIMUM 3 VIEWS Christina Dempsey, RN RECRUITMENT [address] [place] [address] Xr Imaging Referral ID Status Reason Start Date Expiration Date V isits Requested Visits Authorized [id number] Closed Auto-Generate d Referral 05/30/2022 06/29/2023 1 1 [facility] for referral (narrative)* Diagnostic Procedure Only (Routine) - Authorized Specialty Diagnoses / Procedures Referred By Contac t Referred To Contact US IMAGING Diagnoses Thyroid pain Procedures US THYROID/PARATHYROID US SOFT TISSUE HEAD & NECK REAL TIME IMGE Fortino Rousseau MD [address] [place] [address] Us Imaging Referral ID Status Reason Start Date Expiration Date Visits Requested Visits Authorized [id number] Authorized Auto-Generat ed Referral 06/03/2022 07/03/2023 1 1 * Diagnostic Procedure Only (Routine) - Closed Specialty Diagnoses / Procedures Referred By Contac t Referred To Contact XR IMAGING Diagnoses Left leg pain Procedures XR TIBIA FIBULA 2V AP/LAT LEFT RADIOLOGIC EXAMINATION TIBIA & [place]IBUL[place] 2 [place] [address] [place], [place] [id number] Xr Imaging Referral ID Status Reason Start Date Expiration Date V isits Requested Visits Authorized [id number] Closed Auto-Generate d Referral 06/03/2022 07/03/2023 1 1 [facility] for referral (narrative)* Diagnostic Procedure Only (Routine) - Closed Specialty Diagnoses / Procedures Referred By Contac t Referred To Contact US IMAGING Diagnoses Thyroid pain Procedures US THYROID/PARATHYROID US SOFT TISSUE HEAD & [place] [address] [place] [address] Us Imaging Referral ID Status Reason Start Date Expiration Date V isits Requested Visits Authorized [id number] Closed Auto-Generate d Referral 06/03/2022 07/03/2023 1 1 [facility] for referral (narrative)* Diagnostic Procedure Only (Urgent) - Pending Review Specialty Diagnoses / Procedures Referred By Contac t Referred To Contact XR IMAGING Diagnoses Acute pain of right shoulder Procedures XR SHOULDER GENERAL 3V OR MORE AP/TRUE AP/OTHER RIGHT RADEX SHOULDER COMPLETE MINIMUM 2 VIEWS Naila Toscano APRN.RN RECRUITMENT [address] [place] [address] Xr Imaging Referral ID Status Reason Start Date Expiration Date Visits Requested Visits Authorized [id number] Pending Review Auto-Generat ed Referral 06/14/2022 07/14/2023 1 1 * Consult, Test, Treat (Routine) - Authorized Specialty Diagnoses / Procedures Referred By Contac t Referred To Contact Orthopedics Diagnoses Acute pain of right shoulder Procedures CONSULT TO ORTHOPAEDICS OFFICE/OUTPATIENT [facility] 60-74 MINUTES Naila Toscano APRN.RN RECRUITMENT [address] [place] [address] Referral ID Status Reason Start Date Expiration Date Visits Requested Visits Authorized [id number] Authorized PCP Requested Referral 06/14/2022 06/14/2023 1 1 [facility] for referral (narrative)* Diagnostic Procedure Only (Routine) - Pending Review Specialty Diagnoses / Procedures Referred By Yuri t Referred To Contact XR IMAGING Diagnoses Bilateral groin pain Bilateral hip pain Procedures XR HIP BILATERAL 5V PEL/AP/LAT EACH HIP RADEX HIPS BILATERAL WITH PELVIS MINIMUM 5 VIEWS Fortino Logan MD [address] [place] [address] [place] [address] Referral ID Status Reason Start Date Expiration Date Visits Requested Visits Authorized [id number] Pending Review Auto-Generat ed Referral 06/04/2023 07/03/2024 1 1 [facility] for referral (narrative)* Diagnostic Procedure Only (Routine) - Pending Review Specialty Diagnoses / Procedures Referred By Yuri t Referred To Contact BR IMAGING Diagnoses Encounter for screening mammogram for breast cancer Procedures KRANTHI SCREENING SCREENING MAMMOGRAPHY BI 2-VIEW BREAST INC CAD Fortino Logan MD [address] [place] [address] Br Imaging [address] [place] [address] Referral ID Status Reason Start Date Expiration Date Visits Requested Visits Authorized [id number] Pending Review Auto-Generat ed Referral 03/03/2024 04/02/2025 1 1 [facility] for referral (narrative)* Diagnostic Procedure Only (Routine) - Closed Specialty Diagnoses / Procedures Referred By Contac t Referred To Contact XR IMAGING Diagnoses Bilateral groin pain Bilateral hip pain Procedures XR HIP BILATERAL 5V PEL/AP/LAT EACH HIP RADEX HIPS BILATERAL WITH PELVIS MINIMUM 5 VIEWS Fortino Logan MD [address] [place] [address] [place] [address] Referral ID Status Reason Start Date Expiration Date V isits Requested Visits Authorized [id number] Closed Auto-Generate d Referral 06/04/2023 07/03/2024 1 1 [facility] for referral (narrative)* Diagnostic Procedure Only (Routine) - Closed Specialty Diagnoses / Procedures Referred By Contac t Referred To Contact XR IMAGING Diagnoses Acute left ankle pain Procedures XR ANKLE GENERAL 3V AP/LAT/OBL LEFT RADEX ANKLE COMPLETE MINIMUM 3 VIEWS Christina Walters APRN.FUAD [address] [place] [address] [place] [address] Referral ID Status Reason Start Date Expiration Date V isits Requested Visits Authorized [id number] Closed Auto-Generate d Referral 05/30/2022 06/29/2023 1 1 [facility] for referral (narrative)* Diagnostic Procedure Only (Routine) - Closed Specialty Diagnoses / Procedures Referred By Contac t Referred To Contact XR IMAGING Diagnoses Left leg pain Procedures XR TIBIA FIBULA 2V AP/LAT LEFT RADIOLOGIC EXAMINATION TIBIA & FIBULA 2 VIEWS Fortino Logan MD [address] [place] [address] [place] [address] Referral ID Status Reason Start Date Expiration Date V isits Requested Visits Authorized [id number] Closed Auto-Generate d Referral 06/03/2022 07/03/2023 1 1 [facility] for referral (narrative)* Diagnostic Procedure Only (Urgent) - Closed Specialty Diagnoses / Procedures Referred By Contac t Referred To Contact XR IMAGING Diagnoses Foot pain, right Procedures XR FOOT GENERAL 3V AP/LAT/OBL RT X-RAY FOOT MINIMUM 3 VIEWS Fortino Meier APRN.RN RECRUITMENT [address] [place] [place] [address] [place] [address] Referral ID Status Reason Start Date Expiration Date V isits Requested Visits Authorized [id number] Closed Auto-Generate d Referral 08/20/2021 09/19/2022 1 1 [facility] for referral (narrative)No reason for referral information [facility]: [facility] for visit Narrative* Diagnostic Procedure Only (Routine) - Closed Specialty Diagnoses / Procedures Referred By Contac t Referred To Contact XR IMAGING Diagnoses Bilateral groin pain Bilateral hip pain Procedures XR HIP BILATERAL 5V PEL/AP/LAT EACH HIP RADEX HIPS BILATERAL WITH PELVIS MINIMUM 5 VIEWS Fortino Logan MD [address] [place] [address] [place] [address] Referral ID Status Reason Start Date Expiration Date V isits Requested Visits Authorized [id number] Closed Auto-Generate d Referral 06/04/2023 07/03/2024 1 1 [facility] for visit Narrative* Diagnostic Procedure Only (Routine) - Closed Specialty Diagnoses / Procedures Referred By Contac t Referred To Contact XR IMAGING Diagnoses Acute left ankle pain Procedures XR ANKLE GENERAL 3V AP/LAT/OBL LEFT RADEX ANKLE COMPLETE MINIMUM 3 VIEWS Christina Walters APRN.RN RECRUITMENT [address] [place] [address] [place] [address] Referral ID Status Reason Start Date Expiration Date V isits Requested Visits Authorized [id number] Closed Auto-Generate d Referral 05/30/2022 06/29/2023 1 1 [facility] for visit Narrative* Diagnostic Procedure Only (Routine) - Closed Specialty Diagnoses / Procedures Referred By Contac t Referred To Contact XR IMAGING Diagnoses Left leg pain Procedures XR TIBIA FIBULA 2V AP/LAT LEFT RADIOLOGIC EXAMINATION TIBIA & FIBULA 2 VIEWS Fortino Logan MD [address] [place] [address] [place] [address] Referral ID Status Reason Start Date Expiration Date V isits Requested Visits Authorized [id number] Closed Auto-Generate d Referral 06/03/2022 07/03/2023 1 1 [facility] for visit Narrative* Diagnostic Procedure Only (Urgent) - Closed Specialty Diagnoses / Procedures Referred By Contac t Referred To Contact XR IMAGING Diagnoses Foot pain, right Procedures XR FOOT GENERAL 3V AP/LAT/OBL RT X-RAY FOOT MINIMUM 3 VIEWS Fortino Meier, ZITA.RN RECRUITMENT [address] [place] [address] [place] [address] Referral ID Status Reason Start Date Expiration Date V isits Requested Visits Authorized [id number] Closed Auto-Generate d Referral 08/20/2021 09/19/2022 1 1 [facility] for visit Narrative* Auth/Cert (Routine) Specialty Diagnoses / Procedures Referred By Contac t Referred To Contact Diagnoses Gastro-esophageal reflux disease with esophagitis, without bleeding Procedures [place] ESOPHAGOGASTRODUODENOSCOPY TRANSORAL DIAGNOSTIC [place] EGD TRANSORAL BIOPSY SINGLE/MULTIPLE [address] [address] Phone: tel: [phone] fax: Referral ID Status Reason Start Date Expiration Date Visits Re quested Visits Authorized [id number] 1 1 [facility] Work Phone: Reason for visit Narrative* Diagnostic Procedure Only (Routine) - Closed Specialty Diagnoses / Procedures Referred By Contac t Referred To Contact XR IMAGING Diagnoses Acute bilateral low back pain with bilateral sciatica Procedures XR LUMBAR PARS DEFECT 4V AP/LAT/BOTH OBL RADEX SPINE LUMBOSACRAL MINIMUM 4 VIEWS Fortino Logan MD [address] [place] [address] Phone: tel: fax: [place] [address] Referral ID Status Reason Start Date Expiration Date V isits Requested Visits Authorized [id number] Closed Auto-Generate d Referral 04/20/2025 05/20/2026 1 1 [facility] for visit Narrative* Gastroenterology (Routine) - Authorized Specialty Diagnoses / Procedures Referred By Contac t Referred To Contact Gastroenterology Diagnoses Gastroesophageal reflux disease without esophagitis Procedures Esophageal Manometry Clifford Rhoades, DO [address] [place] [facility] [address] [place] [address] Phone: tel: fax: Referral ID Status Reason Start Date Expiration Date V isits Requested Visits Authorized [id number] Authorized 2025 2026 1 1 [facility] Work Phone: Advance Directives No Advanced Directives Records FoundDocuments on File Type Date Recorded Patient Candy Feeder Expl anation Advance Directive(s) 09/13/2021 11:46 AM Advance Directive(s) 03/13/2020 3:10 PM Advance Directive(s) 03/03/2020 12:37 PM Advance Directive(s) 06/22/2019 5:04 PM Advance Directive(s) 05/27/2016 10:44 AM Documents on File Type Date Recorded Patient Candy Feeder Expl anation Advance Directive(s) 09/13/2021 11:46 AM Advance Directive(s) 03/13/2020 3:10 PM Advance Directive(s) 03/03/2020 12:37 PM Advance Directive(s) 06/22/2019 5:04 PM Advance Directive(s) 05/27/2016 10:44 AM Advance Directive Response Recorded Date/ Time Living Will No March 12, 2019 2 :05pm Power of Director Of Convention Services No March 12, 2019 2:05pm Advance Directive Response Recorded Date/ Time Living Will No May 26 2:27pm Power of Director Of Convention Services No May 26, 2 023 2:27pm Advance Directive Response Recorded Date/ Time Living Will No August 28 2 023 2:51pm Power of Director Of Convention Services No August 28, 2023 2:51pm Advance Directive Response Recorded Date/ Time Living Will No August 28, 2 023 3:51pm Power of Director Of Convention Services No August 28, 2023 3:51pm Living Will No December 27, 2024 8:03pm Power of Director Of Convention Services No December 27 8:03pm Advance Directive Response Recorded Date/ Time Living Will No December 27, 2024 8:03pm Do you have a Healthcare Power of Director Of Convention Services? No December 27, 2024 8:03pm Summary Purpose Family History No Family History Records Found Relationship Condition Age at Onset Recorded Date/T chet mother Chronic obstructive pulmonary disease Unk nown Cardiac disease Unknown Disorder of thyroid Unknown Hypertension Unknown Kidney disorder Unknown Asthma Unknown Malignant neoplasm of breast Unknown brother Seizure Unknown sister Disorder of thyroid Unknown son Disorder of thyroid Unknown Diabetes mellitus Unknown Reason for Referral Specialty Diagnoses / Procedures Referred By Yuri salinas Referred To Contact Gastroenterology Diagnoses Gastric hyperplasia Gastroesophageal reflux disease with esophagitis without hemorrhage Procedures CONSULT TO GASTROENTEROLOGY OFFICE/OUTPATIENT [facility] 60-74 MINUTES Fortino Logan MD [address] [place] [address] Referral ID Status Reason Start Date Expiration Date Visits Requested Visits Authorized [id number] Authorized PCP Requested Referral 12/24/2022 12/24/2023 1 1 Specialty Diagnoses / Procedures Referred By Yuri salinas Referred To Contact Gastroenterology Diagnoses Gastroesophageal reflux disease with esophagitis without hemorrhage Gastric hyperplasia Procedures CONSULT TO GASTROENTEROLOGY OFFICE/OUTPATIENT [facility] 60 MINUTES Fortino Logan MD [address] [place] [address] Referral ID Status Reason Start Date Expiration Date Visits Requested Visits Authorized [id number] Authorized PCP Requested Referral 09/30/2025 1 1 Chief Complaint and Reason for Visit Chief Complaint Consult GERD GERD Reason for Visit GERD (gastroesophage al reflux disease) Chief Complaint Consult GERD GERD Reflux Reason for Visit GERD (gastroesophage al reflux disease) GERD (gastroesophageal reflux disease) Chief Complaint Reflux CHEST PAIN AND SOB Reason for Visit GERD (gastroesophage al reflux disease) Chief Complaint CHEST PAIN AND SOB NEED ORDER MAY BE HIS IP ARCHITECT ORDERING Chief Complaint Admit Date N/V December 27, 2024 7:4 3pm Additional Source Comments Source Comments (unrecognize d section and content) In the event this informatio n is protected by the Federal Confidentiality of Alcohol and Drug Abuse Patient Records regulations: The Federal rules restrict any use of the information to criminally investigate or prosecute any alcohol or drug abuse patient.[facility] the event this information is protected by the Federal Confidentiality of Alcohol and Drug Abuse Patient Records regulations: The Federal rules restrict any use of the information to criminally investigate or prosecute any alcohol or drug abuse patient.[facility]In the event this information is protected by the Federal Confidentiality of Alcohol and Drug Abuse Patient Records regulations: The Federal rules restrict any use of the information to criminally investigate or prosecute any alcohol or drug abuse patient.[facility]In the event this information is protected by the Federal Confidentiality of Alcohol and Drug Abuse Patient Records regulations: The Federal rules restrict any use of the information to criminally investigate or prosecute any alcohol or drug abuse patient.[facility]In the event this information is protected by the Federal Confidentiality of Alcohol and Drug Abuse Patient Records regulations: The Federal rules restrict any use of the information to criminally investigate or prosecute any alcohol or drug abuse patient.[facility]In the event this information is protected by the Federal Confidentiality of Alcohol and Drug Abuse Patient Records regulations: The Federal rules restrict any use of the information to criminally investigate or prosecute any alcohol or drug abuse patient.[facility]In the event this information is protected by the Federal Confidentiality of Alcohol and Drug Abuse Patient Records regulations: The Federal rules restrict any use of the information to criminally investigate or prosecute any alcohol or drug abuse patient.[facility]In the event this information is protected by the Federal Confidentiality of Alcohol and Drug Abuse Patient Records regulations: The Federal rules restrict any use of the information to criminally investigate or prosecute any alcohol or drug abuse patient.[facility]In the event this information is protected by the Federal Confidentiality of Alcohol and Drug Abuse Patient Records regulations: The Federal rules restrict any use of the information to criminally investigate or prosecute any alcohol or drug abuse patient.[facility]In the event this information is protected by the Federal Confidentiality of Alcohol and Drug Abuse Patient Records regulations: The Federal rules restrict any use of the information to criminally investigate or prosecute any alcohol or drug abuse patient.[facility]In the event this information is protected by the Federal Confidentiality of Alcohol and Drug Abuse Patient Records regulations: The Federal rules restrict any use of the information to criminally investigate or prosecute any alcohol or drug abuse patient.[facility]In the event this information is protected by the Federal Confidentiality of Alcohol and Drug Abuse Patient Records regulations: The Federal rules restrict any use of the information to criminally investigate or prosecute any alcohol or drug abuse patient.[facility]In the event this information is protected by the Federal Confidentiality of Alcohol and Drug Abuse Patient Records regulations: The Federal rules restrict any use of the information to criminally investigate or prosecute any alcohol or drug abuse patient.[facility]In the event this information is protected by the Federal Confidentiality of Alcohol and Drug Abuse Patient Records regulations: The Federal rules restrict any use of the information to criminally investigate or prosecute any alcohol or drug abuse patient.[facility]In the event this information is protected by the Federal Confidentiality of Alcohol and Drug Abuse Patient Records regulations: The Federal rules restrict any use of the information to criminally investigate or prosecute any alcohol or drug abuse patient.[facility]In the event this information is protected by the Federal Confidentiality of Alcohol and Drug Abuse Patient Records regulations: The Federal rules restrict any use of the information to criminally investigate or prosecute any alcohol or drug abuse patient.[facility]In the event this information is protected by the Federal Confidentiality of Alcohol and Drug Abuse Patient Records regulations: The Federal rules restrict any use of the information to criminally investigate or prosecute any alcohol or drug abuse patient.[facility]In the event this information is protected by the Federal Confidentiality of Alcohol and Drug Abuse Patient Records regulations: The Federal rules restrict any use of the information to criminally investigate or prosecute any alcohol or drug abuse patient.[facility]In the event this information is protected by the Federal Confidentiality of Alcohol and Drug Abuse Patient Records regulations: The Federal rules restrict any use of the information to criminally investigate or prosecute any alcohol or drug abuse patient.[facility]In the event this information is protected by the Federal Confidentiality of Alcohol and Drug Abuse Patient Records regulations: The Federal rules restrict any use of the information to criminally investigate or prosecute any alcohol or drug abuse patient.[facility]In the event this information is protected by the Federal Confidentiality of Alcohol and Drug Abuse Patient Records regulations: The Federal rules restrict any use of the information to criminally investigate or prosecute any alcohol or drug abuse patient.[facility]In the event this information is protected by the Federal Confidentiality of Alcohol and Drug Abuse Patient Records regulations: The Federal rules restrict any use of the information to criminally investigate or prosecute any alcohol or drug abuse patient.[facility]In the event this information is protected by the Federal Confidentiality of Alcohol and Drug Abuse Patient Records regulations: The Federal rules restrict any use of the information to criminally investigate or prosecute any alcohol or drug abuse patient.[facility]In the event this information is protected by the Federal Confidentiality of Alcohol and Drug Abuse Patient Records regulations: The Federal rules restrict any use of the information to criminally investigate or prosecute any alcohol or drug abuse patient.[facility]In the event this information is protected by the Federal Confidentiality of Alcohol and Drug Abuse Patient Records regulations: The Federal rules restrict any use of the information to criminally investigate or prosecute any alcohol or drug abuse patient.[facility]In the event this information is protected by the Federal Confidentiality of Alcohol and Drug Abuse Patient Records regulations: The Federal rules restrict any use of the information to criminally investigate or prosecute any alcohol or drug abuse patient.[facility]In the event this information is protected by the Federal Confidentiality of Alcohol and Drug Abuse Patient Records regulations: The Federal rules restrict any use of the information to criminally investigate or prosecute any alcohol or drug abuse patient.[facility]In the event this information is protected by the Federal Confidentiality of Alcohol and Drug Abuse Patient Records regulations: The Federal rules restrict any use of the information to criminally investigate or prosecute any alcohol or drug abuse patient.[facility]In the event this information is protected by the Federal Confidentiality of Alcohol and Drug Abuse Patient Records regulations: The Federal rules restrict any use of the information to criminally investigate or prosecute any alcohol or drug abuse patient.[facility]In the event this information is protected by the Federal Confidentiality of Alcohol and Drug Abuse Patient Records regulations: The Federal rules restrict any use of the information to criminally investigate or prosecute any alcohol or drug abuse patient.[facility]In the event this information is protected by the Federal Confidentiality of Alcohol and Drug Abuse Patient Records regulations: The Federal rules restrict any use of the information to criminally investigate or prosecute any alcohol or drug abuse patient.[facility]In the event this information is protected by the Federal Confidentiality of Alcohol and Drug Abuse Patient Records regulations: The Federal rules restrict any use of the information to criminally investigate or prosecute any alcohol or drug abuse patient.[facility]In the event this information is protected by the Federal Confidentiality of Alcohol and Drug Abuse Patient Records regulations: The Federal rules restrict any use of the information to criminally investigate or prosecute any alcohol or drug abuse patient.[facility]In the event this information is protected by the Federal Confidentiality of Alcohol and Drug Abuse Patient Records regulations: The Federal rules restrict any use of the information to criminally investigate or prosecute any alcohol or drug abuse patient.[facility]In the event this information is protected by the Federal Confidentiality of Alcohol and Drug Abuse Patient Records regulations: The Federal rules restrict any use of the information to criminally investigate or prosecute any alcohol or drug abuse patient.[facility]In the event this information is protected by the Federal Confidentiality of Alcohol and Drug Abuse Patient Records regulations: The Federal rules restrict any use of the information to criminally investigate or prosecute any alcohol or drug abuse patient.[facility]In the event this information is protected by the Federal Confidentiality of Alcohol and Drug Abuse Patient Records regulations: The Federal rules restrict any use of the information to criminally investigate or prosecute any alcohol or drug abuse patient.[facility]In the event this information is protected by the Federal Confidentiality of Alcohol and Drug Abuse Patient Records regulations: The Federal rules restrict any use of the information to criminally investigate or prosecute any alcohol or drug abuse patient.[facility]In the event this information is protected by the Federal Confidentiality of Alcohol and Drug Abuse Patient Records regulations: The Federal rules restrict any use of the information to criminally investigate or prosecute any alcohol or drug abuse patient.[facility]In the event this information is protected by the Federal Confidentiality of Alcohol and Drug Abuse Patient Records regulations: The Federal rules restrict any use of the information to criminally investigate or prosecute any alcohol or drug abuse patient.[facility]In the event this information is protected by the Federal Confidentiality of Alcohol and Drug Abuse Patient Records regulations: The Federal rules restrict any use of the information to criminally investigate or prosecute any alcohol or drug abuse patient.[facility]In the event this information is protected by the Federal Confidentiality of Alcohol and Drug Abuse Patient Records regulations: The Federal rules restrict any use of the information to criminally investigate or prosecute any alcohol or drug abuse patient.[facility]In the event this information is protected by the Federal Confidentiality of Alcohol and Drug Abuse Patient Records regulations: The Federal rules restrict any use of the information to criminally investigate or prosecute any alcohol or drug abuse patient.[facility]In the event this information is protected by the Federal Confidentiality of Alcohol and Drug Abuse Patient Records regulations: The Federal rules restrict any use of the information to criminally investigate or prosecute any alcohol or drug abuse patient.[facility]In the event this information is protected by the Federal Confidentiality of Alcohol and Drug Abuse Patient Records regulations: The Federal rules restrict any use of the information to criminally investigate or prosecute any alcohol or drug abuse patient.[facility]In the event this information is protected by the Federal Confidentiality of Alcohol and Drug Abuse Patient Records regulations: The Federal rules restrict any use of the information to criminally investigate or prosecute any alcohol or drug abuse patient.[facility]In the event this information is protected by the Federal Confidentiality of Alcohol and Drug Abuse Patient Records regulations: The Federal rules restrict any use of the information to criminally investigate or prosecute any alcohol or drug abuse patient.[facility]In the event this information is protected by the Federal Confidentiality of Alcohol and Drug Abuse Patient Records regulations: The Federal rules restrict any use of the information to criminally investigate or prosecute any alcohol or drug abuse patient.[facility]In the event this information is protected by the Federal Confidentiality of Alcohol and Drug Abuse Patient Records regulations: The Federal rules restrict any use of the information to criminally investigate or prosecute any alcohol or drug abuse patient.[facility]In the event this information is protected by the Federal Confidentiality of Alcohol and Drug Abuse Patient Records regulations: The Federal rules restrict any use of the information to criminally investigate or prosecute any alcohol or drug abuse patient.[facility]In the event this information is protected by the Federal Confidentiality of Alcohol and Drug Abuse Patient Records regulations: The Federal rules restrict any use of the information to criminally investigate or prosecute any alcohol or drug abuse patient.[facility]In the event this information is protected by the Federal Confidentiality of Alcohol and Drug Abuse Patient Records regulations: The Federal rules restrict any use of the information to criminally investigate or prosecute any alcohol or drug abuse patient.[facility]In the event this information is protected by the Federal Confidentiality of Alcohol and Drug Abuse Patient Records regulations: The Federal rules restrict any use of the information to criminally investigate or prosecute any alcohol or drug abuse patient.[facility]In the event this information is protected by the Federal Confidentiality of Alcohol and Drug Abuse Patient Records regulations: The Federal rules restrict any use of the information to criminally investigate or prosecute any alcohol or drug abuse patient.[facility]In the event this information is protected by the Federal Confidentiality of Alcohol and Drug Abuse Patient Records regulations: The Federal rules restrict any use of the information to criminally investigate or prosecute any alcohol or drug abuse patient.[facility]In the event this information is protected by the Federal Confidentiality of Alcohol and Drug Abuse Patient Records regulations: The Federal rules restrict any use of the information to criminally investigate or prosecute any alcohol or drug abuse patient.[facility]In the event this information is protected by the Federal Confidentiality of Alcohol and Drug Abuse Patient Records regulations: The Federal rules restrict any use of the information to criminally investigate or prosecute any alcohol or drug abuse patient.[facility]In the event this information is protected by the Federal Confidentiality of Alcohol and Drug Abuse Patient Records regulations: The Federal rules restrict any use of the information to criminally investigate or prosecute any alcohol or drug abuse patient.[facility]In the event this information is protected by the Federal Confidentiality of Alcohol and Drug Abuse Patient Records regulations: The Federal rules restrict any use of the information to criminally investigate or prosecute any alcohol or drug abuse patient.[facility]In the event this information is protected by the Federal Confidentiality of Alcohol and Drug Abuse Patient Records regulations: The Federal rules restrict any use of the information to criminally investigate or prosecute any alcohol or drug abuse patient.[facility]In the event this information is protected by the Federal Confidentiality of Alcohol and Drug Abuse Patient Records regulations: The Federal rules restrict any use of the information to criminally investigate or prosecute any alcohol or drug abuse patient.[facility]In the event this information is protected by the Federal Confidentiality of Alcohol and Drug Abuse Patient Records regulations: The Federal rules restrict any use of the information to criminally investigate or prosecute any alcohol or drug abuse patient.[facility]In the event this information is protected by the Federal Confidentiality of Alcohol and Drug Abuse Patient Records regulations: The Federal rules restrict any use of the information to criminally investigate or prosecute any alcohol or drug abuse patient.[facility]In the event this information is protected by the Federal Confidentiality of Alcohol and Drug Abuse Patient Records regulations: The Federal rules restrict any use of the information to criminally investigate or prosecute any alcohol or drug abuse patient.[facility]In the event this information is protected by the Federal Confidentiality of Alcohol and Drug Abuse Patient Records regulations: The Federal rules restrict any use of the information to criminally investigate or prosecute any alcohol or drug abuse patient.[facility]In the event this information is protected by the Federal Confidentiality of Alcohol and Drug Abuse Patient Records regulations: The Federal rules restrict any use of the information to criminally investigate or prosecute any alcohol or drug abuse patient.[facility]In the event this information is protected by the Federal Confidentiality of Alcohol and Drug Abuse Patient Records regulations: The Federal rules restrict any use of the information to criminally investigate or prosecute any alcohol or drug abuse patient.[facility]In the event this information is protected by the Federal Confidentiality of Alcohol and Drug Abuse Patient Records regulations: The Federal rules restrict any use of the information to criminally investigate or prosecute any alcohol or drug abuse patient.[facility]In the event this information is protected by the Federal Confidentiality of Alcohol and Drug Abuse Patient Records regulations: The Federal rules restrict any use of the information to criminally investigate or prosecute any alcohol or drug abuse patient.[facility]In the event this information is protected by the Federal Confidentiality of Alcohol and Drug Abuse Patient Records regulations: The Federal rules restrict any use of the information to criminally investigate or prosecute any alcohol or drug abuse patient.[facility]In the event this information is protected by the Federal Confidentiality of Alcohol and Drug Abuse Patient Records regulations: The Federal rules restrict any use of the information to criminally investigate or prosecute any alcohol or drug abuse patient.[facility]In the event this information is protected by the Federal Confidentiality of Alcohol and Drug Abuse Patient Records regulations: The Federal rules restrict any use of the information to criminally investigate or prosecute any alcohol or drug abuse patient.[facility]In the event this information is protected by the Federal Confidentiality of Alcohol and Drug Abuse Patient Records regulations: The Federal rules restrict any use of the information to criminally investigate or prosecute any alcohol or drug abuse patient.[facility]In the event this information is protected by the Federal Confidentiality of Alcohol and Drug Abuse Patient Records regulations: The Federal rules restrict any use of the information to criminally investigate or prosecute any alcohol or drug abuse patient.[facility]In the event this information is protected by the Federal Confidentiality of Alcohol and Drug Abuse Patient Records regulations: The Federal rules restrict any use of the information to criminally investigate or prosecute any alcohol or drug abuse patient.[facility]In the event this information is protected by the Federal Confidentiality of Alcohol and Drug Abuse Patient Records regulations: The Federal rules restrict any use of the information to criminally investigate or prosecute any alcohol or drug abuse patient.[facility]In the event this information is protected by the Federal Confidentiality of Alcohol and Drug Abuse Patient Records regulations: The Federal rules restrict any use of the information to criminally investigate or prosecute any alcohol or drug abuse patient.[facility]In the event this information is protected by the Federal Confidentiality of Alcohol and Drug Abuse Patient Records regulations: The Federal rules restrict any use of the information to criminally investigate or prosecute any alcohol or drug abuse patient.[facility]In the event this information is protected by the Federal Confidentiality of Alcohol and Drug Abuse Patient Records regulations: The Federal rules restrict any use of the information to criminally investigate or prosecute any alcohol or drug abuse patient.[facility]In the event this information is protected by the Federal Confidentiality of Alcohol and Drug Abuse Patient Records regulations: The Federal rules restrict any use of the information to criminally investigate or prosecute any alcohol or drug abuse patient.[facility]In the event this information is protected by the Federal Confidentiality of Alcohol and Drug Abuse Patient Records regulations: The Federal rules restrict any use of the information to criminally investigate or prosecute any alcohol or drug abuse patient.[facility] HospitalIn the event this information is protected by the Federal Confidentiality of Alcohol and Drug Abuse Patient Records regulations: The Federal rules restrict any use of the information to criminally investigate or prosecute any alcohol or drug abuse patient.[facility] HospitalIn the event this information is protected by the Federal Confidentiality of Alcohol and Drug Abuse Patient Records regulations: The Federal rules restrict any use of the information to criminally investigate or prosecute any alcohol or drug abuse patient.[facility] HospitalIn the event this information is protected by the Federal Confidentiality of Alcohol and Drug Abuse Patient Records regulations: The Federal rules restrict any use of the information to criminally investigate or prosecute any alcohol or drug abuse patient.[facility] HospitalIn the event this information is protected by the Federal Confidentiality of Alcohol and Drug Abuse Patient Records regulations: The Federal rules restrict any use of the information to criminally investigate or prosecute any alcohol or drug abuse patient.[facility] HospitalIn the event this information is protected by the Federal Confidentiality of Alcohol and Drug Abuse Patient Records regulations: The Federal rules restrict any use of the information to criminally investigate or prosecute any alcohol or drug abuse patient.[facility] HospitalIn the event this information is protected by the Federal Confidentiality of Alcohol and Drug Abuse Patient Records regulations: The Federal rules restrict any use of the information to criminally investigate or prosecute any alcohol or drug abuse patient.[facility] HospitalIn the event this information is protected by the Federal Confidentiality of Alcohol and Drug Abuse Patient Records regulations: The Federal rules restrict any use of the information to criminally investigate or prosecute any alcohol or drug abuse patient.[facility] HospitalIn the event this information is protected by the Federal Confidentiality of Alcohol and Drug Abuse Patient Records regulations: The Federal rules restrict any use of the information to criminally investigate or prosecute any alcohol or drug abuse patient.[facility] HospitalIn the event this information is protected by the Federal Confidentiality of Alcohol and Drug Abuse Patient Records regulations: The Federal rules restrict any use of the information to criminally investigate or prosecute any alcohol or drug abuse patient.[facility] HospitalIn the event this information is protected by the Federal Confidentiality of Alcohol and Drug Abuse Patient Records regulations: The Federal rules restrict any use of the information to criminally investigate or prosecute any alcohol or drug abuse patient.[facility] HospitalIn the event this information is protected by the Federal Confidentiality of Alcohol and Drug Abuse Patient Records regulations: The Federal rules restrict any use of the information to criminally investigate or prosecute any alcohol or drug abuse patient.[facility] HospitalIn the event this information is protected by the Federal Confidentiality of Alcohol and Drug Abuse Patient Records regulations: The Federal rules restrict any use of the information to criminally investigate or prosecute any alcohol or drug abuse patient.[facility] HospitalIn the event this information is protected by the Federal Confidentiality of Alcohol and Drug Abuse Patient Records regulations: The Federal rules restrict any use of the information to criminally investigate or prosecute any alcohol or drug abuse patient.[facility] HospitalIn the event this information is protected by the Federal Confidentiality of Alcohol and Drug Abuse Patient Records regulations: The Federal rules restrict any use of the information to criminally investigate or prosecute any alcohol or drug abuse patient.[facility] HospitalIn the event this information is protected by the Federal Confidentiality of Alcohol and Drug Abuse Patient Records regulations: The Federal rules restrict any use of the information to criminally investigate or prosecute any alcohol or drug abuse patient.[facility] HospitalIn the event this information is protected by the Federal Confidentiality of Alcohol and Drug Abuse Patient Records regulations: The Federal rules restrict any use of the information to criminally investigate or prosecute any alcohol or drug abuse patient.[facility] HospitalIn the event this information is protected by the Federal Confidentiality of Alcohol and Drug Abuse Patient Records regulations: The Federal rules restrict any use of the information to criminally investigate or prosecute any alcohol or drug abuse patient.[facility] HospitalIn the event this information is protected by the Federal Confidentiality of Alcohol and Drug Abuse Patient Records regulations: The Federal rules restrict any use of the information to criminally investigate or prosecute any alcohol or drug abuse patient.[facility] HospitalIn the event this information is protected by the Federal Confidentiality of Alcohol and Drug Abuse Patient Records regulations: The Federal rules restrict any use of the information to criminally investigate or prosecute any alcohol or drug abuse patient.[facility] HospitalIn the event this information is protected by the Federal Confidentiality of Alcohol and Drug Abuse Patient Records regulations: The Federal rules restrict any use of the information to criminally investigate or prosecute any alcohol or drug abuse patient.[facility] HospitalIn the event this information is protected by the Federal Confidentiality of Alcohol and Drug Abuse Patient Records regulations: The Federal rules restrict any use of the information to criminally investigate or prosecute any alcohol or drug abuse patient.[facility] HospitalIn the event this information is protected by the Federal Confidentiality of Alcohol and Drug Abuse Patient Records regulations: The Federal rules restrict any use of the information to criminally investigate or prosecute any alcohol or drug abuse patient.[facility] Reason for Visit (unrecogniz ed section and content)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 [facility] [place] [address] [facility] 03/14/25 Solar Applications Development Engineer Relationship Specialty Start Date End Date Fortino Logan MD [address] [facility] [place] [address] PCP - General Family Medicine 08/12/13 Melany Blanc, DIRECT MAIL COORDINATOR.RN RECRUITMENT [address] [facility] [place] [address] [facility] 03/14/25 Bailey Williamson PA-C [address] [facility] [place] [address] [facility] 03/14/25 Solar Applications Development Engineer Relationship Specialty Start Date End Date Fortino Logan MD [address] [facility] [place] [place] [address] PCP - General Family Medicine 08/12/13 Melany Blanc, ZITA.RN RECRUITMENT [address] [facility] [place] [address] [facility] 03/14/25 Bailey Williamson PA-C [address] [place] [address] [facility] 03/14/25 Solar Applications Development Engineer Relationship Specialty Start Date End Date Fortino Logan MD [address] [place] [address] PCP - General Family Medicine 10/01/24 Solar Applications Development Engineer Relationship Specialty Start Date End Date Fortino Logan MD [address] [place] [address] PCP - General Family Medicine 08/12/13 Melany Blanc, ZITA.RN RECRUITMENT [address] [place] [address] [facility] 03/14/25 Bailey Williamson PA-C [address] [place] [address] [facility] 03/14/25 Solar Applications Development Engineer Relationship Specialty Start Date End Date Fortino Logan MD [address] [place] [address] PCP - General Family Medicine 08/12/13 Melany Blanc, ZITA.RN RECRUITMENT [facility] [place] [address] [facility] 03/14/25 Bailey Williamson PA-C [address] [place] [address] [facility] 03/14/25 Team Status: Inactive Member Role/Relationship Status Dates Dr. Fortino Logan MD Primary Care Provider Active Start: February 10, 2025 End: February 10, 2025 Dr. Fortino Logan MD Attending Provider Active Start: February 10, 2025 End: February 10, 2025 Dr. Fortino Logan MD Referring Provider Active Start: February 10, 2025 End: February 10, 2025 Team Status: Inactive Member Role/Relationship Status Dates Dr. Fortino Logan MD Primary Care Provider Active Start: April 12, 2025 End: April 12, 2025 Dr. Fortino Logan MD Attending Provider Active Start: April 12, 2025 End: April 12, 2025 Dr. Fortino Logan MD Referring Provider Active Start: April 12, 2025 End: April 12, 2025 Team Status: Inactive Member Role/Relationship Status Dates Dr. Fortino Logan MD Primary Care Provider Active Start: May 16, 2025 End: May 16, 2025 Dr. Fortino Logan MD Attending Provider Active Start: May 16, 2025 End: May 16, 2025 Dr. Fortino Logan MD Referring Provider Active Start: May 16, 2025 End: May 16, 2025 Solar Applications Development Engineer Relationship Specialty Start Date End Date Fortino Logan MD [address] [place] [address] PCP - General Family Medicine 10/01/24 Solar Applications Development Engineer Relationship Specialty Start Date End Date Fortino Logan MD [address] [place] [address] [id number] PCP - General Family Medicine 08/12/13 Melany Blanc APRN.CNP [address] [place] [address] [id number] [facility] 03/14/25 Bailey Williamson PA-C [address] [place] [address] [id number] [facility] 03/14/25 Solar Applications Development Engineer Relationship Specialty Start Date End Date Fortino Logan MD [address] [place] [address] [id number] PCP - General Family Medicine 08/12/13 Melany Blanc APRN.CNP [address] [place], [place] 705771 [facility] 03/14/25 Bailey Williamson PA-C [address] [place], [place] 600311 [facility] 03/14/25 Solar Applications Development Engineer Relationship Specialty Start Date End Date Fortino Logan MD [address] [place], [place] [id number] PCP - General Family Medicine 10/01/24 Solar Applications Development Engineer Relationship Specialty Start Date End Date Fortino Logan MD [address] [place] [address] PCP - General Family Medicine 10/01/24 INFORMATION SOURCE (unrecogn ized section and content) DATE CREATED AUTHOR 05/17/2022 [facility] DATE CREATED AUTHOR AUTHOR'S ORGANIZ ATION 11/02/2024 [facility] DATE CREATED AUTHOR AUTHOR'S ORGANIZ ATION 06/14/2025 [facility] DATE CREATED AUTHOR AUTHOR'S ORGANIZ ATION 06/25/2025 [facility] DATE CREATED AUTHOR AUTHOR'S ORGANIZ ATION 08/08/2025 [facility] DATE CREATED AUTHOR AUTHOR'S ORGANIZ ATION 08/16/2025 [facility] Goals (unrecognized section and content) Goals may be documented in a n alternate sectionGoals may be documented in an alternate sectionGoals may be documented in an alternate sectionGoals may be documented in an alternate sectionGoals may be documented in an alternate sectionGoals may be documented in an alternate sectionGoals may be documented in an alternate sectionGoals may be documented in an alternate section FOR RECORDS PERTAINING TO PATIENTS WHO ARE OR HAVE BEEN ENROLLED IN A CHEMICAL DEPENDENCY/SUBSTANCEABUSE PROGRAM, SOME INFORMATION MAY BE OMITTED. This clinical summary was aggregated from multiple sources. Caution should be exercised in using it in the provision of clinical care. This summary normalizes information from multiple sources, and as a consequence, information in this document may materially change the coding, format and clinical context of patient data. In addition, data may be omitted in some cases. CLINICAL DECISIONS SHOULD BE BASED ON THE PRIMARY CLINICAL RECORDS. [facility] CenterInsurance Business [facility]. provides no warranty or guarantee of the accuracy or completeness of information in this document.
[2025-08-27 11:58] LABS: Mucous, Urine 0 SEEN /hpf (<or=2+); Red Blood Cells-Urine 0 SEEN /hpf (0-5)
[2025-08-27 12:28] LABS: Color, Urine Yellow (Yellow); Glucose, Dipstick Normal (Normal); Hematocrit 40.1 % (37-47); Hemoglobin 13.2 g/dL (12.0-15.0); Immature Granulocytes Count 0.020 X10^3/uL (0.0-0.0); Ketone-Dipstick Negative (Negative); Leukocyte Esterase-Dipstick Negative /ul (Negative); Mean Corp Hgb Conc 32.9 g/dL (32-36); Mean Corpuscular Volume 81.2 fL (81-99); Mean Platelet Vol. 9.0 fl (6.2-12.0); NRBC Flagged by Analyzer 0 % (0-5); Nitrite-Dipstick Negative (Negative); Occult Blood-Urine Negative /ul (Negative); Platelet Count 465 K/mm3 (150-450); Protein-Dipstick Negative (Negative); RBC Distribution Width CV 13.8 % (11.6-14.6); RBC Distribution Width SD 40.2 fl (35.1-43.9); Red Blood Count 4.94 M/mm3 (4.2-5.4); Specific Gravity, Urine 1.010 (1.002-1.030); Urine Bilirubin Dipstick Negative (Negative); White Blood Count 5.9 K/mm3 (4.4-11.0)
[2025-08-27 12:33] LABS: Squamous Epithelial Cells - UA 0-5 SEEN /hpf (5-10)
[2025-08-27 13:46] LABS: AST(SGOT) 18 U/L (<=31); Alanine Aminotransfer ALT/SGPT 20 U/L (<=34); Albumin, Serum 4.2 g/dL (3.5-5.0); Alkaline Phosphatase 78 U/L (35-104); Anion Gap 9 (5-15); BUN 12 mg/dL (4-19); BUN/Creat Ratio 17.9 RATIO (10-20); Calcium,Total 9.6 mg/dL (7.6-11.0); Carbon Dioxide 25.6 mmol/L (21.0-32.0); Chloride 102 mmol/L (98-108); Cholesterol 198 mg/dL (<=200); Globulin 3.1 g/dL (2.2-4.2); Glucose 100 mg/dL (70-99); Low Density Lipoprotein Calc. 127 mg/dL; Magnesium 2.3 mg/dL (1.5-2.2); Potassium 4.3 mmol/L (3.3-5.1); Triglycerides 56 mg/dL; Very Low Density Lipoprotein 11 mg/dL (5-40); Vitamin B12 307 pg/mL (180-914); Vitamin D,25 Hydroxy 21.5 ng/mL (30-100); cholesterol:hdl ratio screen 3.24
== END | disposition home or self-care (01) ==
LOC: LAB 11:45
PROVIDERS: PCP Family Medicine; Referring Provider Family Medicine; Visit Provider Family Medicine
DX: K21.00 Gastro-esophageal reflux disease with esophagitis, without bleeding (principal); E53.8 Deficiency of other specified B group vitamins; Z79.899 Other long term (current) drug therapy; E03.9 Hypothyroidism, unspecified; E78.5 Hyperlipidemia, unspecified; D75.839 Thrombocytosis, unspecified
CPT/HCPCS: 36415; 80053; 80061; 81001; 82306; 82607; 83036; 83735; 84443; 85025; 87086; 87088